=== PATIENT | male | born 1960 | race Caucasian/White ===

== ENCOUNTER 2023-01-15 13:50 | Outpatient (OUT) | payer OTHER, SELFPAY ==
[2023-01-15 14:50] LABS: Estimated Average Glucose 114 mg/dL; Glycohemoglobin A1C 5.6 % (4.5-6.2)
[2023-01-18 14:09] LABS: Methylmalonic Acid, Serum 156 nmol/L (0-378)
== END 2023-01-15 13:51 ==
LOC: LAB 13:56
PROVIDERS: PCP Internal Medicine
DX: R20.9 Unspecified disturbances of skin sensation (principal)
CPT/HCPCS: 36415; 82607; 83036; 83921

== ENCOUNTER 2023-09-28 08:59 | Outpatient (OUT) | payer OTHER, SELFPAY ==
[2023-09-28 10:08] LABS: Alanine Aminotransferase 7 U/L (16-63); Albumin Level 3.5 g/dL (3.4-5.0); Alkaline Phosphatase 94 U/L (46-116); Anion Gap 12.3; Aspartate Amino Transferase 12 U/L (15-37); BUN Creatinine Ratio 16.7; Bilirubin Total 0.4 mg/dL (0.2-1.0); Calcium 8.7 mg/dL (8.5-10.1); Carbon Dioxide 28.7 mmol/L (21.0-32.0); Chloride 104 mmol/L (98-107); Chol HDL Ratio 4.5; Cholesterol 185 mg/dL (<=200); Estimated GFR (African America >60 (>=60); Estimated GFR (Non-African Ame >60 (>=60); Globulin 3.6 g/dL; Glucose 92 mg/dL (74-106); HDL Cholesterol 41 mg/dL (40-60); LDL Cholesterol Calculated 128.4 mg/dL; Sodium 141 mmol/L (136-145); Total Protein 7.1 g/dL (6.4-8.2); Triglycerides 78 mg/dL (<=150); VLDL CHOLESTEROL 15.6 mg/dL
== END 2023-09-28 09:00 | disposition home or self-care (01) ==
LOC: LAB 09:01
PROVIDERS: PCP Internal Medicine; Visit Provider Nurse Practitioner
DX: I77.819 Aortic ectasia, unspecified site (principal); Z00.00 Encounter for general adult medical examination without abnormal findings
CPT/HCPCS: 36415; 80053; 80061; 84153

== ENCOUNTER 2023-09-28 09:18 | Outpatient (REF) | payer OTHER, SELFPAY ==
--- OUTSIDE RECORDS SUMMARY | 2023-10-04 09:59 | XMS_ITS | CCD ---
Author Name Unknown Address [address] [place] [address] Organization [facility] Care Team Providers Care Copier Operator Name Role Phone Unavailable Primary Care Provider UnavailTREMAYNE Singh Attending Unavailable TREMAYNE GIBSON Referring Unavailable PIYUSH, DR HANNAH Admitting Unavailable BALL, DR HANNAH Attending Unavailable BALL, DR HANNAH Primary Care Unavailable BALL, DR HANNAH Consulting Unavailable MISC, DR HU Admitting Unavailable MISC, DR HU Attending Unavailable PIYUSH, DR HANNAH Primary Care Unavailable MISC, DR HU Consulting Unavailable ZIEBER, DR MAMIE Contreras Consulting Unavailable Tabby Lindo Unavailable Taras Pickett Unavailable Unavailable Primary Care Provider UnavailTREMAYNE Singh Attending Unavailable TREMAYNE GIBSON Referring Unavailable MECCA AWAN Attending Unavailable TREMAYNE GIBSON Referring Unavailable MT BAJWA Attending Unavailable EYAL RAE Attending Unavailable EYAL RAE Referring Unavailable EYAL RAE Referring Unavailable Medications Current Medications Medication Drug Class(es) Dates [...] on above: Take 1 tablet by bushra three times daily. 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, unspecified site; Translations: [Aortic ectasia, unspecified site] Onset: 04-03-2023 Chronic Cardiac dysrhythmias (9 sources) Paroxysmal atrial fibrillation; [...] of cardiac pacemaker; Translations: [Cardiac pacemaker] Onset: 04-03-2023 Chronic Disorders of lipid metabolism (13 sources) [...] Test Name Value Interpretation Reference Range Facility Office Visiton 09-26-2023 Follow-up visit [id number] Jurgen Ramos 1960 M Date Provider Department Center 09/26/2023 Anais-MT BAJWA ADRIANO [facility] No family history on file Level of Service:95548 NC OFFICE/OUTPATIENT ESTABLISHED MOD MDM 30 MIN Normal [facility] CNOVon 05-10-2023 CNOV Office Visit (NRESAV ) -------- JAK RAMOS ([id number]) 1960 M Date Time Provider Department 05/10/23 [...] Tremayne Gibson DO 05/10/2023 11:32 AM Signed [facility] - FOLLOW UP EVALUATION [facility] [address] [facility] [address] Jak Ramos is a 63 year old [...] 240 m (more content not included)... Normal [facility] 04-06-2023 [facility] Telephone (NIQ) -------- JAK RAMOS ([id number]) 1960 M Date Time Provider Department 04/06/23 TREMAYNE GIBSON During your visit today, we recorded the following information about you: Flora Quevedo 04/06/2023 2:07 PM Signed Received form by fax from [facility] in [place]. They are asking if the patient can participate in a Parkinsons fitness class. Scanned form to patient's chart for provider signature. Drew Mora RN 04/06/2023 3:01 PM Signed Form printed and in nursing outbox for signature. NATHAN Thornton, [facility] [place] 04/12/2023 11:04 AM Signed Routed in docusign for signature and auto fax to [facility] at fax number [phone]. Allergies As of Date: 04/06/2023 (No Known [...] Status:Closed by DREW MORA on 04/06/23 Normal [facility] Office Visiton 04-03-2023 Follow-up visit [id number] Jurgen Ramos 1960 M Date Provider Department Center 04/03/2023 Kaylie-EYAL RAE CARD [facility] No family history on file Level of Service:66051 NC OFFICE/OUTPATIENT ESTABLISHED MOD MDM 30-39 MIN Normal [facility] CNOVon 01-15-2023 CNOV Office Visit (NNCR ) -------- JAK RAMOS ([id number]) 1960 M Date Time Provider Department 01/15/23 10:00 AM [facility] During your visit today, we recorded the [...] Diagnosis Date Neurocardiogenic syncope PD (Parkinson's disease) ([facility]) 12/2021 PAST SURGICAL HISTORY Procedure Laterality Date [...] Flex 5 (more content not included)... Normal [facility] CBC AUTO DIFFon 10-03-2022 BASO # 0.0 103/ul Normal 0.0-0.1 [facility] Comment on above: Performed By: #### C BC #### [facility] [address] [place] [address] Dr. Rosalio Burks Basophils/100 WBC (Bld) 0.3 % Normal 0.2-2.0 [facility] Comment on above: Performed By: #### C BC #### [facility] [address] [place] [address] Dr. Rosalio Burks EO # 0.1 103/ul Normal 0.0-0.7 [facility] Comment on above: Performed By: #### C BC #### [facility] [address] [place] [address] Dr. Rosalio Burks Eosinophils/100 WBC (Bld) 1.0 % Normal 0.9-7.0 [facility] Comment on above: Performed By: #### C BC #### [facility] [address] [place] [address] Dr. Rosalio Burks Erythrocyte distribution width (RBC) [Ratio] 11.7 % Normal 11.0-15.0 [facility] Comment on above: Performed By: #### C BC #### [facility] [address] [place] [address] Dr. Rosalio Burks Hematocrit (Bld) [Volume fraction] 43.2 % Normal 42.0-54.0 [facility] Comment on above: Performed By: #### C BC #### [facility] [address] [place] [address] Dr. Rosalio Burks Hemoglobin (Bld) [Mass/Vol] 15.0 g/dL Normal 14.0-18.0 [facility] Comment on above: Performed By: #### C BC #### [facility] [address] [place] [address] Dr. Rosalio Burks IG # 0.02 10e3/ul Normal 0.00-0.03 [facility] Comment on above: Performed By: #### C BC #### [facility] [address] [place] [address] Dr. Rosalio Burks IG % 0.3 % Normal 0.0-0.5 [facility] Comment on above: Performed By: #### C BC #### [facility] [address] [place] [address] Dr. Rosalio Burks LYMPH # 1.5 103/ul Normal 1.2-3.8 [facility] Comment on above: Performed By: #### C BC #### [facility] [address] [place] [address] Dr. Rosalio Burks Lymphocytes/100 WBC (Bld) 23.3 % Normal 20.5-60.0 [facility] Comment on above: Performed By: #### C BC #### [facility] [address] [place] [address] Dr. Roslaio Burks MANUAL DIFF REQ NO Normal [facility] Comment on above: Performed By: #### C BC #### [facility] [address] [place] [address] Dr. Rosalio Burks MCH (RBC) [Entitic mass] 31.9 pg Normal 25.9-34.0 [facility] Comment on above: Performed By: #### C BC #### [facility] [address] [place] [address] Dr. Rosalio Burks MCHC (RBC) [Mass/Vol] 34.7 g/dL Normal 29.9-35.2 [facility] Comment on above: Performed By: #### C BC #### [facility] [address] [place] [address] Dr. Rosalio Burks MCV (RBC) [Entitic vol] 91.9 fL Normal 80.0-94.0 [facility] Comment on above: Performed By: #### C BC #### [facility] [address] [place] [address] Dr. Rosalio Burks MONO # 0.6 103/ul Normal 0.3-0.8 [facility] Comment on above: Performed By: #### C BC #### [facility] [address] [place] [address] Dr. Rosalio Burks Monocytes/100 WBC (Bld) 10.1 % Normal 1.7-12.0 [facility] Comment on above: Performed By: #### C BC #### [facility] [address] [place] [address] Dr. Rosalio Burks NEUT # 4.0 103/ul Normal 1.4-6.5 [facility] Comment on above: Performed By: #### C BC #### [facility] [address] [place] [address] Dr. Rosalio Burks Neutrophils/100 WBC (Bld) 65.0 % Normal 43.0-75.0 [facility] Comment on above: Performed By: #### C BC #### [facility] [address] [place] [address] Dr. Rosalio Bursk Platelet mean volume (Bld) [Entitic vol] 10.3 fL Normal 9.5-13.5 [facility] Comment on above: Performed By: #### C BC #### [facility] [address] [place] [address] Dr. Rosalio Burks PLT 268 103/ul Normal 150-450 [facility] Comment on above: Performed By: #### C BC #### [facility] [address] [place] [address] Dr. Rosalio Burks RBC 4.70 106/ul Normal 4.70-6.10 [facility] Comment on above: Performed By: #### C BC #### [facility] [address] [place] [address] Dr. Rosalio Burks WBC 6.2 103/ul Normal 4.0-11.0 [facility] Comment on above: Performed By: #### C BC #### [facility] [address] [address] [address] Rosalio Burks Complete Blood Count and Dif gerald 10-03-2022 Anisocytosis Ql (Bld) [employer] Other Basophilic stippling LM Ql (Bld) [employer] Other RBC morphology finding Nom (Bld) [employer] Other Complete Blood Count and Diff [employer] Other Comprehensive Metabolic Pane laura 10-03-2022 Albumin [Mass/Vol] 3.719791 g/dL 3.4-5.0 g/dL [employer] Other Calcium [Mass/Vol] 9.3925109 mg/dL 8.5-10.1 mg/dL [employer] Other CO2 [Moles/Vol] 30.96901763 mmol/L 21.0-3 2.0 mmol/L [employer] Other Creatinine [Mass/Vol] 1.24512380 mg/dL 0.70-1.30 mg/dL [employer] Other Potassium [Moles/Vol] 4.72156611 mmol/L 3.5-5.1 mmol/L [employer] Other Protein [Mass/Vol] 7.010881 g/dL 6.4-8.2 g/dL [employer] Other Urea nitrogen [Mass/Vol] 17.1337270 mg/dL 7.0-18.0 mg/dL [employer] Other Comprehensive Metabolic Panel see note [employer] Other Comprehensive Metabolic Panel 141 mmol/L 136-145 mmol/L [employer] Other Comprehensive Metabolic Panel 83 mg/dL 74-106 mg/dL [employer] Other Comprehensive Metabolic Panel >60 mL/min/1.73m2 >=60 mL/min/1.73m2 [employer] Other Comprehensive Metabolic Panel 0.3 mg/dL 0.2-1.0 mg/dL [employer] Other Comprehensive Metabolic Panel 3.4 g/dL [employer] Other LIPID PROFILEon 10-03-2022 CHOL-HDL RATIO NORM SEE BELOW Normal [facility] Comment on above: Result Comment: 3.3 - 4.4 LOW RISK 4.4 - 7.1 AVERAGE RISK 7.1 - 11.0 MODERATE RISK >11.0 HIGH RISK Performed By: #### C MP, LIPID #### [facility] [address] [address] [address] Rosalio Burks Cholesterol [Mass/Vol] 202 mg/dL Critically high <=200 mg/dL [facility] Comment on above: Performed By: #### C MP, LIPID #### [facility] [address] [address] [address] Rosalio Burks Cholesterol in HDL [Mass/Vol] 33 mg/dL Critically low 40-60 mg/dL [facility] Comment on above: Performed By: #### C MP, LIPID #### [facility] [address] [address] [address] Rosalio Burks Cholesterol in LDL [Mass/Vol] 106.4 mg/dL Normal [facility] Comment on above: Performed By: #### C MP, LIPID #### [facility] [address] [address] [address] Rosalio Burks Cholesterol.total /Cholesterol in HDL [Mass ratio] 6.1 {ratio} [facility] Comment on above: Performed By: #### C MP, LIPID #### [facility] [address] [address] [address] Rosalio Burks HDL NORMAL > or = 60 mg/dl - LO W CARDIOVASCULAR RISK <40 mg/dl - HIGH CARDIOVASCULAR RISK Normal [facility] Comment on above: Performed By: #### C MP, LIPID #### [facility] [address] [address] [address] Rosalio Burks LDL CALC NORMAL SEE BELOW Normal [facility] Comment on above: Result Comment: <100 mg/dl OPTIMAL 100 - 129 mg/dl NEAR OR ABOVE OPTIMAL 130 - 159 mg/dl BORDERLINE HIGH 160 - 189 mg/dl HIGH >190 mg/dl VERY HIGH Performed By: #### C MP, LIPID #### [facility] [address] [place] [address] Dr. Rosalio Burks Triglyceride [Mass/Vol] 313 mg/dL Critically high <=150 mg/dL [facility] Comment on above: Performed By: #### C MP, LIPID #### [facility] [address] [place] [address] Dr. Rosalio Burks VLDL CALC 62.6 mg/dL Normal [facility] Comment on above: Performed By: #### C MP, LIPID #### [facility] [address] [place] [address] Dr. Rosalio Burks Lipid Panelon 10-03-2022 Lipid Panel > or = 60 mg/dl - LO W CARDIOVASCULAR RISK <40 mg/dl - HIGH CARDIOVASCULAR RISK [employer] Other Lipid Panel SEE BELOW [employer] Other Lipid Panel 106.4 mg/dL [employer] Other Lipid Panel 62.6 mg/dL [employer] Other PROF 14(COMP METB)on 023 Albumin [Mass/Vol] 3.9 g/dL Normal 3.4-5.0 [facility] Comment on above: Performed By: #### C MP, LIPID #### [facility] [address] [place] [address] Dr. Rosalio Burks Albumin/Globulin [Mass ratio] 1.1 {ratio} [facility] Comment on above: Performed By: #### C MP, LIPID #### [facility] [address] [place] [address] Dr. Rosalio Burks ALP [Catalytic activity/Vol] 108 U/L 46-116 U/L [facility] Comment on above: Performed By: #### C MP, LIPID #### [facility] [address] [place] [address] Dr. Rosalio Burks ALT [Catalytic activity/Vol] 15 U/L Critically low 16-63 U/L [facility] Comment on above: Performed By: #### C MP, LIPID #### [facility] [address] [place] [address] Dr. Rosalio Burks Anion gap [Moles/Vol] 10.4 mmol/L [facility] Comment on above: Performed By: #### C MP, LIPID #### [facility] [address] [place] [address] Dr. Rosalio Burks AST [Catalytic activity/Vol] 15 U/L 15-37 U/L [facility] Comment on above: Performed By: #### C MP, LIPID #### [facility] [address] [place] [address] Dr. Rosalio Burks Bilirubin [Mass/Vol] 0.3 mg/dL Normal 0.2-1.0 [facility] Comment on above: Performed By: #### C MP, LIPID #### [facility] [address] [place] [address] Dr. Rosalio Burks Calcium [Mass/Vol] 9.0 mg/dL Normal 8.5-10.1 [facility] Comment on above: Performed By: #### C MP, LIPID #### [facility] [address] [place] [address] Dr. Rosalio Burks Chloride [Moles/Vol] 104 mmol/L 98-107 mmol/L [facility] Comment on above: Performed By: #### C MP, LIPID #### [facility] [address] [place] [address] Dr. Rosalio Burks CO2 [Moles/Vol] 30.7 mmol/L Normal 21.0-32.0 [facility] Comment on above: Performed By: #### C MP, LIPID #### [facility] [address] [place] [address] Dr. Rosalio Burks Creatinine [Mass/Vol] 1.09 mg/dL Normal 0.70-1.30 [facility] Comment on above: Performed By: #### C MP, LIPID #### [facility] [address] [place] [address] Dr. Rosalio Burks EGFR-AF [place]IZ[place] >60 Normal >=60 [facility] Comment on above: Performed By: #### C MP, LIPID #### [facility] [address] [place] [address] Dr. Rosalio Burks EGFR-NON AF [place]IZ[place] >60 Normal >=60 [facility] Comment on above: Performed By: #### C MP, LIPID #### [facility] [address] [place] [address] Dr. Rosalio Burks Globulin (S) [Mass/Vol] 3.4 g/dL Normal [facility] Comment on above: Performed By: #### C MP, LIPID #### [facility] [address] [place] [address] Dr. Rosalio Burks Glucose [Mass/Vol] 83 mg/dL Normal 74-106 [facility] Comment on above: Performed By: #### C MP, LIPID #### [facility] [address] [place] [address] Dr. Rosalio Burks Potassium [Moles/Vol] 4.1 mmol/L Normal 3.5-5.1 [facility] Comment on above: Performed By: #### C MP, LIPID #### [facility] [address] [place] [address] Dr. Rosalio Burks Protein [Mass/Vol] 7.3 g/dL Normal 6.4-8.2 [facility] Comment on above: Performed By: #### C MP, LIPID #### [facility] [address] [place] [address] Dr. Rosalio Burks Sodium [Moles/Vol] 141 mmol/L Normal 136-145 [facility] Comment on above: Performed By: #### C MP, LIPID #### [facility] [address] [place] [address] Dr. Rosalio Burks Urea nitrogen [Mass/Vol] 17.0 mg/dL Normal 7.0-18.0 [facility] Comment on above: Performed By: #### C MP, LIPID #### [facility] [address] [place] [address] Dr. Rosalio Burks Urea nitrogen/Creatini ne [Mass ratio] 15.6 mg/mg [facility] Comment on above: Performed By: #### C MP, LIPID #### [facility] [address] [address] [address] Rosalio GARZONon 09-08-2022 CNOV Office Visit (NRESFV ) -------- JAK RAMOS ([id number]) 1960 M Date Time Provider Department 09/08/22 8:00 AM TREMAYNE GIBSON NRESFV During your visit today, we recorded the following information about you: Pulse Blood pressure Weight Height 82/minute 146/93 93.6 kg 1.956 m Tremayne Gibson DO 09/08/2022 8:41 AM Signed [facility] - FOLLOW UP EVALUATION Tremayne Gibson [address] [facility] [address] Jak Ramos is a 62 year old [...] holds a paper. No falls are noted. 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 There is a strong family [...] in Neurology OT/PT/Speech Visit from 10/13/2021 in [facility] Physical Therapy Global Physical Health T Score [...] 2+ P (more content not included)... Normal [facility] XR MODIFIED BARIUM SWALLOWon 11-01-2021 XR MODIFIED [...] by: MAMIE HOLDER Date: 2021-11-01 09:50 Normal [facility] Ambulatory Clinical Summaryo n 02-10-2021 Ambulatory Clinical Summary {[id number] }CD:[id number] Normal [facility] General Surgery Office/Clini c Noteon 01-11-2021 General [...] with problems/questions. Follow-up With When Contact Information NSEHA TAFOYA, LAVON Waters Only if needed [address] [place] [address]- Additional Instructions: Patient Education Exercising to Stay [...] Not Given Postpone due to refusal Normal [facility] Comment on above: Result Comment: Elec tronically [...] Yard work, such as: ? 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 ? Raking and bagging leaves. ? Washing [...] 08/25/2011 Document Revised: 07/05/2018 Document Reviewed: 06/13/2018 [employer] Patient Education ? 2019 [employer]. Normal [facility] Ambulatory Clinical Summaryo n 12-30-2020 Ambulatory Clinical Summary {[id number] }CD:[id number] Normal [facility] General Surgery Office/Clini c Noteon 12-30-2020 General [...] Not Given Postpone due to refusal Normal [facility] Comment on above: Result Comment: Elec tronically Signed By: SNEHA TAFOYA, Tyree Buckley\Date and Time Signed: 12/30/20 09:58 EDT Ambulatory Clinical Summaryo n 12-15-2020 Ambulatory Clinical Summary {[id number] }CD:[id number] Normal [facility] General Surgery Office/Clini c Noteon 12-15-2020 General [...] - Not Given Postpone due to refusal [facility] Comment on above: Result Comment: Elec tronically Signed By: SNEHA TAFOYA, Tyree Buckley\Date and Time Signed: 12/15/20 16:50 EDT Pathology Noteon 12-14-2020 Pathology Note [id number]: 127 [facility] Operative Reporton Operative Report [id number]: 127 [facility] Lab Reportson 12-06-2020 Lab Reports [id number]: 127 [facility] Consent for Procedure/Surger yon 11-29-2020 Consent for Procedure/Surgery [id number]:1 27 Normal [facility] Ambulatory Clinical Summaryo n 11-26-2020 Ambulatory Clinical Summary {[id number] }CD:[id number] Normal [facility] Patient Educationon 11-27-19 Patient Education Preventive Health [...] Yard work, such as: ? 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 ? Raking and bagging leaves. ? Washing [...] 08/25/2011 Document Revised: 07/05/2018 Document Reviewed: 06/13/2018 [employer] Patient Education ? 2019 [employer] [facility] Physician Referralon 021 Physician Referral [id number]: 127 [facility] Vital Signs Date Time Vital Sign Value Performing Clinician Facility 08-16-2023 10:15-0500 Body height 190.5 cm Taras [facility] Other [employer] Other 08-16-2023 10:15-0500 Body mass index (BMI) [Ratio] 22.3 kg/m2 Taras [facility] Other [employer] Other 08-16-2023 10:15-0500 Body weight 80.92 kg Taras [facility] Other [employer] Other 08-16-2023 10:15-0500 Diastolic blood pressure 70 mm[Hg] Taras [facility] Other [employer] Other 08-16-2023 10:15-0500 Respiratory rate 12 /min Taras [facility] Other [employer] Other 08-16-2023 10:15-0500 Systolic blood pressure 109 mm[Hg] Taras [facility] Other [employer] Other 05-10-2023 10:46-0400 Diastolic blood pressure 87 mm[Hg] Tremayne Gibson DO Work Phone: [facility] 05-10-2023 10:46-0400 Heart rate 85 /min Tremayne Gibson DO Work Phone: [facility] 05-10-2023 10:46-0400 Systolic blood pressure 125 mm[Hg] Tremayne Gibson DO Work Phone: [facility] 03-13-2023 13:30-0400 Body height 190.5 cm Taras Ball Other [employer] Other 03-13-2023 13:30-0400 Body mass index (BMI) [Ratio] 24.42 kg/m2 Taras Ball Other [employer] Other 03-13-2023 13:30-0400 Body weight 88.63 kg Taras Ball Other [employer] Other 03-13-2023 13:30-0400 Diastolic blood pressure 78 mm[Hg] Taras Ball Other [employer] Other 03-13-2023 13:30-0400 Respiratory rate 12 /min Taras Ball Other [employer] Other 03-13-2023 13:30-0400 Systolic blood pressure 111 mm[Hg] Taras Ball Other [employer] Other 10-03-2022 14:00-0500 Body height 190.5 cm Taras Ball Other [employer] Other 10-03-2022 14:00-0500 Body mass index (BMI) [Ratio] 25.32 kg/m2 Taras Ball Other [employer] Other 10-03-2022 14:00-0500 Body weight 91.9 kg Taras Ball Other [employer] Other 10-03-2022 14:00-0500 Diastolic blood pressure 82 mm[Hg] Taras Ball Other [employer] Other 10-03-2022 14:00-0500 Respiratory rate 12 /min Taras Ball Other [employer] Other 10-03-2022 14:00-0500 Systolic blood pressure 118 mm[Hg] Taras Ball Other [employer] Other 09-19-2022 12:40-0500 Body height 190.5 cm Tabby Lindo Other [employer] Other 09-19-2022 12:40-0500 Body mass index (BMI) [Ratio] 26.25 kg/m2 Tabby Lindo Other [employer] Other 09-19-2022 12:40-0500 Body temperature 98.2 [degF] Tabby Lindo Other [employer] Other 09-19-2022 12:40-0500 Body weight 95.26 kg Tabby Lindo Other [employer] Other 09-19-2022 12:40-0500 Respiratory rate 18 /min Tabby Lindo Other [employer] Other 09-19-2022 12:40-0500 SaO2% (BldA) [Mass fraction] 96 % Tabby Lindo Other [employer] Other 09-08-2022 07:53-0500 Body height 195.6 cm Tremayne Gibson DO Work Phone: [facility] 09-08-2022 07:53-0500 Body weight 93.58 kg Tremayne Gibson DO Work Phone: [facility] 09-08-2022 07:53-0500 Diastolic blood pressure 93 mm[Hg] Tremayne Gostkowski DO Work Phone: [facility] 09-08-2022 07:53-0500 Heart rate 82 /min Tremayne Gostkowski DO Work Phone: [facility] 09-08-2022 07:53-0500 SaO2% (BldA) [Mass fraction] 94 % Tremayne Gostkowski DO Work Phone: [facility] 09-08-2022 07:53-0500 Systolic blood pressure 146 mm[Hg] Tremayne Gostkowski DO Work Phone: [facility] 12-29-2021 13:46-0400 Diastolic blood pressure 82 mm[Hg] Tremyane Gostkowski DO Work Phone: [facility] 12-29-2021 13:46-0400 Heart rate 99 /min Tremayne Mickeytkowski DO Work Phone: [facility] 12-29-2021 13:46-0400 Systolic blood pressure 114 mm[Hg] Tremayne Gostkowski DO Work Phone: [facility] 11-10-2021 08:00-0400 Diastolic blood pressure 89 mm[Hg] Hero Salinason PT Work Phone: [facility] 11-10-2021 08:00-0400 Heart rate 83 /min Hero Salinason PT Work Phone: [facility] 11-10-2021 08:00-0400 Systolic blood pressure 134 mm[Hg] Hero Salinason PT Work Phone: [facility] Encounters Encounter Date Encounter Type Care Provider Facility Start: 10-02-2023 End: 10-02-2023 ambulatory EYAL RAE [facility] Start: 09-26-2023 End: 09-26-2023 ambulatory MT BAJWA [facility] Start: 08-16-2023 End: 08-16-2023 ambulatory Taras Pickett Other [employer] Other Start: 08-16-2023 Office outpatient vi sit 15 minutes Taras Piyush [facility] Start: 08-10-2023 End: 08-10-2023 ambulatory Taras Pickett Other [employer] Other Start: 08-10-2023 Office outpatient vi sit 15 minutes Taras Piyush [facility] Start: 05-10-2023 End: 05-10-2023 ambulatory TREMAYNE GIBSON Facility:[facility] Start: 05-10-2023 End: 05-10-2023 Office outpatient visit 15 minutes Tremayne Gibson DO Work Phone: Neurology Comment on above: PD (Parkinson's dise ase) Start: 04-06-2023 Telephone encounter Tremayne fox DO Work Phone: Neurology Comment on above: Forms Start: 04-03-2023 End: 04-03-2023 ambulatory EYAL [facility] Start: 03-13-2023 End: 03-13-2023 ambulatory Taras Piyush Other [employer] Other Start: 03-13-2023 Office outpatient vi sit 25 minutes Taras Piyush [facility] Start: 01-15-2023 End: 01-15-2023 ambulatory MECCA AWAN Facility:[facility] Start: 11-22-2022 ambulatory Tremayne florentino DO Work Phone: Neurology Comment on above: neuropathy analysis Start: 10-09-2022 End: 10-09-2022 ambulatory Taras Pickett Other [employer] Other Start: 10-09-2022 Telephone encounter Taras MERCADO [facility] Start: 10-08-2022 Encounter for genera l adult medical examination without abnormal findings DR TARAS PICKETT [facility] Start: 10-03-2022 End: 10-04-[address] TARAS PICKETT Facility: Start: 10-03-2022 End: 10-04-2022 Encounter for general adult medical examination without abnormal findings DR TARAS PICKETT Facility: Start: 10-03-2022 Periodic preventive med est patient 40-64yrs Taras Pickett [facility] Start: 09-19-2022 End: 09-19-2022 ambulatory Tabby Lindo Other [employer] Other Start: 09-19-2022 Office outpatient ne w 30 minutes Tabby Lindo [facility] Start: 09-08-2022 End: 09-08-2022 ambulatory TREMAYNE GIBSON Facility:[facility] Start: 09-08-2022 End: 09-08-2022 Office outpatient visit 15 minutes Tremayne Gibson DO Work Phone: Neurology Comment on above: PD (Parkinson's dise ase) (HCC) (Primary Dx); Neuropathy, peripheral, hereditary Start: 12-29-2021 End: 12-29-2021 Patient encounter procedure Tremayne Gibson DO Work Phone: Neurology Comment on above: PD (Parkinson's dise ase) (HCC) (Primary Dx) Start: 12-01-2021 End: 12-01-2021 ambulatory Janice Leon CCC-CODING TECHNICIAN [facility] Comment on above: Hypokinetic Parkinso nian dysphonia (HCC) (Primary Dx); 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); Pharyngeal dysphagia; PD (Parkinson's disease) (HCC) Start: 11-14-2021 ambulatory Tremayne florentino DO Work Phone: Neurology Comment on above: 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 Start: 11-10-2021 End: 11-10-2021 ambulatory Hero Cuellar PT Work Phone: [facility] Physical Therapy Comment on above: Abnormality of gait (Primary Dx); PD (Parkinson's disease) (HCC) Hypokinetic Parkinso nian dysphonia (HCC) (Primary Dx); 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); Pharyngeal dysphagia; PD (Parkinson's disease) (HCC) Start: 11-07-2021 Telephone encounter Tremayne fox DO Work Phone: [facility]rological [facility] Comment on above: Results (MBS) Start: 11-03-2021 End: 11-03-2021 ambulatory Janice Leon CCC-CODING TECHNICIAN [facility] Speech Therapy Comment on above: Hypokinetic Parkinso nian dysphonia (HCC) (Primary Dx); 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 Rosalio Burks Start: 12-26-2021 Adult depression screening assessment Tremayne Gibson DO Work Phone: Depression screening Byron Pickett Other Screening for malign ant neoplasm of prostate Taras Pickett Other Plan of Treatment Date Care Activity Detail Author Start: 10-03-2027 PROSTATE CANCER SCRE ENING DISCUSSION PROSTATE CANCER SCREENING DISCUSSION [facility] Start: 01-13-2026 PROSTATE CANCER SCRE ENING DISCUSSION PROSTATE CANCER SCREENING DISCUSSION [facility] Start: 04-06-2023 Influenza vaccination [facility] Start: 12-26-2022 Adult depression scr eening assessment DEPRESSION SCREENING [facility] Start: 08-06-2022 DEPRESSION ASSESSMENT DEPRESSION ASS ESSMENT [facility] Start: 04-06-2022 Influenza vaccination C [facility] Start: 08-06-2021 DEPRESSION ASSESSMENT DEPRESSION ASS ESSMENT [facility] Start: 04-06-2021 Influenza vaccination INFLUENZA (#1) [facility] Start: 2014 PROSTATE CANCER SCRE ENING DISCUSSION PROSTATE CANCER SCREENING DISCUSSION [facility] Start: 2009 SHINGRIX VACCINE (1 of 2) SHINGRIX V ACCINE (1 of 2) [facility] Start: 2004 COLOGUARD (FIT-DNA) COLOGUARD (FIT-D NA) [facility] Start: 2004 Colonoscopy COLONOSCOPY [facility] Start: 2004 COLORECTAL CANCER SCREENING COLORECTAL CANCER SCREENING [facility] Start: [address] COLONOGRAPHY [facility] Start: 2004 [facility] Start: 2004 Diabetes Screening Diabetes Screenin g [facility] Start: 2004 FECAL OCCULT BLOOD FECAL OCCULT BLOO D [facility] Start: 2004 SIGMOIDOSCOPY SIGMOIDOSCOPY [facility] Start: 1994 Lipid 1996 panel - S andriy or Plasma Lipid Screening [facility] Start: 1994 LIPID SCREEN LIPID SCREEN [facility] Start: 1978 Urine microalbumin profile [facility] Start: 1977 HEPATITIS C SCREENING HEPATITIS C SC REENING [facility] Start: 1977 HIV SCREENING HIV SCREENING [facility] Start: [address] [facility] assessment DEPRESSION SCREENING [facility] Start: 1964 COVID-19 VACCINE (#1) COVID-19 VACCI NE (#1) [facility] Start: 1964 COVID-19 VACCINE (1) COVID-19 VACCIN E (1) [facility] Start: 1959 COVID-19 VACCINE (#1) COVID-19 VACCI NE (#1) [facility] Payers Date Payer Category Payer Unknown [id number] 2018 Unknown ALAINA JETT PPO [id number] 2018-Present [phone] MARIA FERNANDA [id number] [place] [address] PPO [id number] 2018 Unknown [id number] 1959 Unknown [id number] 1959 Unknown [id number] 1959 Unknown [id number] 1959 Unknown [id number] Social History Date Type Detail Facility Tobacco smoking stat [facility] Tobacco smoking consumption unknown [facility] Start: 1960 Sex Assigned At Not on file C [facility] Start: 09-06-2021 End: 04-04-2022 Exposure to SARS-CoV-2 (event) Not sure [facility] Start: 09-08-2022 Tobacco smoking stat [facility] Never smoked tobacco [facility] Start: 09-08-2022 Tobacco use and exposure Smoke less tobacco non-user [facility] Start: 09-08-2022 End: 01-15-2023 Sex Assigned At [facility] Start: 09-08-2022 End: 01-15-2023 History of Social function [facility] Adult Depression Screening Assessment 0 [facility] Start: 10-01-2021 Sexual orientation Choose not to dis close [facility] Clinical Notes 08-06-2008 to 09-26-2023 Note Date & Type Note Facility 09-26-2023 Note [facility] Consult Note Reason for visit: 6 month follow up, PPM, aortic dilatation, PAF 09/26/23: he is here for 6 month follow-up send no complaints of chest pain, shortness of breath, PATIÑO, LE edema he gets some lightheadedness with postural changes when he is doing PT such as when he is lying on the ground has to get up but otherwise has been feeling well discussed with patient given his findings of dilated ascending aorta on previous CT 2019 and concerns for aortic root dilatation we will get a CTA of chest for monitoring of his aorta 04/03/23 Patient here for 6 mo follow up. Needs to have basal cell carcinoma removed in May 2023. Denies chest pain, SOB, palpitations, and LE edema. He recently went to Parkinson symposium at [facility]. He is handling his meds well. Device check 04/03/23 SR with normal parameters. 42% RA pacing and 23% RV pacing. Review of Systems Musculoskeletal: Positive for arthritis, back pain and myalgias. All other systems reviewed and are negative. [facility] neurology recently made a formal diagnosis of Parkinson's and he has been started on carbidopa. He is told that there has been a change in tremors. He is also on Cardizem. Device check performed on 09/20/2022 shows no evidence of atrial fibrillation and lead thresholds has been stable. Prior HPI: Jak Ramos is a 63 y.o. year old with past medical history [...] syncope s/p CLS dual chamber PM PMH: Past Medical History: Diagnosis Date Abnormal ECG PSH: No past surgical history on file. SH: Social Determinants of Health Tobacco Use: Low Risk (09/26/2023) Patient History Smoking Tobacco Use: Never Smokeless [...] on file Housing Stability: Not on file Utilities: Not on file Allergies: No Known Allergies Weight: 83kg Visit Vitals BP 103/70 (BP Location: Right arm, Patient Position: Sitting) Pulse 95 Ht 1.956 m (6' 5 ) Wt 83 kg (183 lb) SpO2 98% BMI 21.70 kg/m??? Smoking Status Never BSA 2.12 m??? Meds: Current Outpatient Medications on File Prior to Visit Medication Sig Dispense Refill aspirin 325 mg tablet in the morning. carbidopa-levodopa (Sinemet) 25-100 mg tablet Take 1 tablet by mouth in the morning, afternoon, and at bedtime. [DISCONTINUED] dilTIAZem CD (Cardizem CD) 240 mg 24 [...] no coughing up blood, no sleep apnea Mus (more content not included)... [facility] 09-26-2023 Note Patient here for 6 m o follow up PAF, tachycardia, and dilatation of aorta. He is scheduled for routine device interrogation next week. He denies chest pain, SOB, and palpitations. Review of Systems Neurological: Positive for light-headedness and tremors. All other systems reviewed and are negative. [facility] 08-16-2023 Evaluation note Encounter Date Diagnosis Assessment [...] G20) Weakens his ability to clear secretions [employer] Other 01-05-2024 Evaluation note* Encounter Date Diagnosis [...] Push fluids, may require elevation of HOB. Lesleysalmicky Perles since nonproductive [employer] Other 10-05-2023 NoteHNO ID: [id number] Author: Tremayne Gibson, DO Service: ? Author Type: Physician Type: Progress Notes Filed: 05/10/2023 11:32 AM Note Text: [facility] - FOLLOW UP EVALUATION Tremayne Gibson [address] [facility] [address] Jak Ramos is a 63 year old [...] Left pathological reflexes: Rashel's absent. Coordination Right: Bgoyni-lo-wqoq normal. Rapid alternating movement normal.Left: Ioaofh-hp-mgbe normal. Rapid alternating movement normal. Gait Casual gait: Normal stance. Reduced stride length. Normal gait. Normal right arm swing. Normal (more content not included)...[facility] 05-10-2023 NoteHNO ID: [id number] Author: Abhishek Cotto LPN Service: ? Author [...] Sleep Apnea Probability Score: (Sleep study not recommended)[facility]10-05-2023 History of Present illness Narrative* Tremayne Gibson DO - 05/10/2023 11:20 AM EDT [facility] - FOLLOW UP EVALUATION Tremayne Gibson [address] [facility] [address] Jak Ramos is a 63 year old [...] Left pathological reflexes: Rashel's absent. Coordination Right: Jxptky-xb-awxt normal. Rapid alternating movement normal.Left: Pxpeae-gb-ydns normal. Rapid alternating movement normal. Gait Casual [...] counseling regarding preparing to see the patient, pzon-sp-aymb patient care, completing clinical documentation, obtaining and/or reviewing separately obtained history, performing a medically appropriate examination, counseling and educating the patient/family/caregiver, ordering medications, tests,or procedures, and communicating results to the patient/family/caregiver. I tried to answer all of the patient's questions and concerns during this visit. Tremayne Gibson DO Senior Staff Neurologist - [facility] * Abhishek Cotto LPN - 05/10/2023 10:45 [...] (Sleep study not recommended) documented in this encounterSum[facility]09-[facility]23 Miscellaneous Notes* Telephone Encounter - Drew Mora RN - 04/06/2023 2:59 PM EDT Form printed and in nursing outbox for signature. Drew Mora RN * Telephone Encounter - Flora Quevedo - 04/06/2023 2:05 PM EDT Received form by fax from [facility] in [place]. They are asking if the patient can participate [employer] Parkins[employer] fitness class. Scanned form to patient's chart for provider signature. documented in this encounterSumma Health [facility]08-29-2023 NoteUT Electrophysiology Consult Note Reason for visit: f/u 04/03/23 Patient here for 6 mo follow up. Needs to have basal cell carcinoma removed in May 2023. Denies chest pain, SOB, palpitations, and LE edema. He recently went to Parkinson symposium at [facility]. He is handling his meds well. Device check 04/03/23 SR with normal parameters. 42% RA pacing and 23% RV pacing. Review of Systems Musculoskeletal: Positive for arthritis, back pain and myalgias. All other systems reviewed and are negative. [facility] neurology recently made a formal diagnosis of [...] Constitutional General Appearance: well-nour (more content not included)...[facility]08-08[facility] Evaluation note* Encounter Date Diagnosis Assessment Notes [...] calories. Protien supplement recommended. Monitor for now. [employer] Other 06-12-2023 NoteHNO ID: [id number] Author: Mecca Awan MD Service: ? Author [...] Diagnosis Date Neurocardiogenic syncope PD (Parkinson's disease) ([facility]) 12/2021 PAST SURGICAL HISTORY Procedure Laterality Date [...] PF 5/5 5/5 In (more content not included)...[facility]03-06-2023 Evaluation note* Encounter Date Diagnosis Assessment Notes Treatment Notes Treatment Clinical Notes Oct, Parkinson's disease (ICD-10 - G20) [employer] Other 02-28-2023 Evaluation note* Encounter Date Diagnosis [...] f/u Neurology, scheduled to be seen at [facility] neuropathy clinic. Fall precautions., inspect feet daily for cuts and calluses. Sep, Paroxysmal atrial fibrillation (ICD-10 - I48.0) CHADS VASC=0 Denies episodes of tachycardia. f/u Cardiology Sep, Cardiac pacemaker (I CD-10 - Z95.0) PM checks q 6mo [employer] Other 02-14-2023 Evaluation note* Encounter Date Diagnosis Assessment Notes [...] treatment plan. Patient left in stable condition. [employer] Other 02-03-2023 NoteHNO ID: [id number] Author: Tremayne Gibson, DO Service: ? Author Type: Physician Type: Progress Notes Filed: 09/08/2022 8:41 AM Note Text: [facility] - FOLLOW UP EVALUATION Tremayne Gibson [address] [facility] [address] Jak Ramos is a 62 year old [...] holds a paper. No falls are noted. 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 There is a strong family [...] in Neurology OT/PT/Speech Visit from 10/13/2021 in [facility] Physical Therapy [facility] T Score [...] Left pathological reflexes: Rashel's absent. Coordination Right: Xrfgzn-lf-vznm normal. Rapid alternating movement normal.Left: Lcyvpu-gr-zdmg normal. Rapid alternating movement normal. (more content not included)...[id number] Instructions* Patient Instructions* Tremayne Gibson DO - 09/08/2022 8:40 AM EST Medications 6A 10A 245P Sinemet 25/100 1 1 1 documented in this encounterSumma Health [facility]02-03-2023 History of Present illness Narrative* Tremayne Gibson DO - 09/08/2022 8:18 AM EST [facility] - FOLLOW UP EVALUATION Tremayne Gibson [address] [facility] [address] Jak Ramos is a 62 year old [...] has to hold off on PT and CODING TECHNICIAN until then. There is a strong family [...] in Neurology OT/PT/Speech Visit from 10/13/2021 in [facility] Physical Therapy [facility] Physical [facility] T Score [...] Left pathological reflexes: Rashel's absent. Coordination Right: Rxkeyd-se-ipgy normal. Rapid alternating movement normal.Left: Mwtjqa-nm-vvsg normal. Rapid alternating movement normal. Gait Casual [...] the amplitude decrements starting after the 1st ahfk-ben-pgjil sequence. Arm Movements Right 2-Mild. a) 3 [...] this visit: Pd (parkinson's disease) ([facility]) (primary encounter diagnosis) Neuropathy, peripheral, hereditary Plan: Continue Sinemet Encouraged exercise - ~150 minutes of strenuous exercise weekly is recommended Defer until 12/26; PT at [facility] Defer until 12/26; genetic counseling for testing for peripheral neuropathy Return in about 6 months (around 03/08/2023). Medical decision making was high complexity due to patient's, multiple symptoms, advancing disease,newly diagnosed Neurologic disease and counseling about correction implications The total time spent on the patient care was 25 minutes with greater than 50% of the time spent on counseling regarding preparing to see the patient, jllc-yz-kfpx patient care, completing clinical documentation, obtaining and/or reviewing separately obtained history, performing a medically appropriate examination, counseling and educating the patient/family/caregiver, ordering medications, tests,or procedures, and communicating results to the patient/family/caregiver. I tried to answer all of the patient's questions and concerns during this visit. Tremayne Gibson DO Senior Staff Neurologist - [facility] documented in this encounterSumma Health [facility]05-26-2022 Instructions* Patient Instructions* Tremayne Gibson DO - [...] Reglan, Compazine or Phenergan. documented in this encounterSumma Health Barberton Campus05-26-2022 History of Present illness Narrative* Tremayne Gibson DO - 12/29/2021 2:10 PM EDT [facility] - FOLLOW UP EVALUATION Tremayne Gibson [address] [facility] [address] Jak Ramos is a 61 year old male with a history of IPD (idiopathic Parkinson's disease). He is seen with his . Interval History Since Last Visit: The patient has been following through with the CODING TECHNICIAN exercises on his drive to work. He notes mild depression. He has been using the treadmill. The short-term memory issues are still an issue. He notes continuing cognitive issues. The PT has been helpful - he notes more baemf-kl-xycmlx. No falls arereported. The patient denies any [...] visit: PROMIS-10 OT/PT/Speech Visit from 10/13/2021 in [facility] Physical Therapy Global Physical [facility] T Score [...] Left pathological reflexes: Rashel's absent. Coordination Right: Svwrpv-xh-qpyl normal. Rapid alternating movement normal. Left: Xpcchd-et-omxl normal. Rapid alternating movement normal. Gait Casual [...] the amplitude decrements starting after the 1st pffb-fmj-veive sequence. Arm Movements Right 2-Mild. a) 3 [...] this visit: Pd (parkinson's disease) ([facility]) (primary encounter diagnosis) Plan: 1. Start Sinemet [...] counseling regarding preparing to see the patient, dsyl-ej-sejz patient care, completing clinical documentation, obtaining and/or reviewing separately obtained history, performing a medically appropriate examination, counseling and educating the patient/family/caregiver, ordering medications, tests,or procedures and communicating results to the patient/family/caregiver. I tried to answer all of the patient's questions and concerns during this visit. Tremayne Gibson DO Senior Staff Neurologist - [facility] documented in this encounterSumma Health [facility] Campus04-28-2022 History of Present illness Narrative* Janice Leon [facility]-CODING TECHNICIAN - 12/01/2021 8:55 AM EDT Episode Visit Count: 5 Therapist That Will Oversee The Plan Of Care: Janice Leon Start of Care Date: 10/13/21 Onset Date: 10/06/21 Plan of Care Certification Date: 10/13/21 Next Certification Due Date: 12/12/21 Patient Identified by Name and Date of : Yes [facility] SPEECH THERAPY PROGRESS [...] upright 90 degrees for all PO;Small Bite/Sip CODING TECHNICIAN Recommendations: Outpatient Speech Therapy Results and Recommendations Discussed With: Patient Planned Interventions, Frequency, and Duration: Planned Treatment Interventions: Cognitive-Linguistic Training (28881, 65251, 00324);Dysphagia Reduction Training (15410);Expressive Language Training (29193, 20190);Voice Training (81849) Current Frequency: 1x/week Duration: 4 weeks PLAN [...] reps each Laryngeal elevation/adduction exercises: 10 reps CODING TECHNICIAN administered DEEP PHARYNGEAL NEUROMUSCULAR STIMULATION to CN [...] 70.2 Sentences: 67.9 TREATMENT: Swallow / Dysphagia (24905): Skilled Intervention: Demonstrated, instructed, modeled and provided educational handout(s) for hyolaryngeal elevation and excursion manuevers and lingual ROM, lingual base ROM, pharyngeal ROM., Provided both written and video instruction for home exercise program to facilitate follow through with proper performance. , Provided neuromuscular reeducation of swallowing reflex via DPNS Speech/Language Therapy (13196): Skilled Intervention: Educated and instructed patient on [...] per 5 word sentences Billing: Speech Treatment (80153) and Dysphagia Treatment (90774) Total time / Length of visit: 60 minutes Janice Leon CCC-CODING TECHNICIAN documented in this encounterSumma Health [facility]04-07-2022 Miscellaneous Notes* Addendum Note - Hero Cuellar PT - 11/10/2021 9:37 AM EDT Addended by: HERO CUELLAR on: 11/10/2021 09:37 AM Modules accepted: Orders documented in this encounterSum[facility]-07-[facility]22 History of Present illness Narrative* LANEY ParkCODING TECHNICIAN - 11/10/2021 9:04 AM EDT Episode Visit Count: 4 Therapist That Will Oversee The Plan Of Care: Janice Leon Start of Care Date: 10/13/21 Onset Date: 10/06/21 Plan of Care Certification Date: 10/13/21 Next Certification Due Date: 12/12/21 Patient Identified by Name and Date of : Yes [facility] SPEECH THERAPY PROGRESS [...] upright 90 degrees for all PO;Small Bite/Sip CODING TECHNICIAN Recommendations: Outpatient Speech Therapy Results and Recommendations Discussed With: Patient Planned Interventions, Frequency, and Duration: Planned Treatment Interventions: Cognitive-Linguistic Training (05995, 77266, 11134);Expressive Language Training (37169, 30919);Voice Training (07564);Dysphagia Reduction Training (89506) Current Frequency: 1x/week Duration: 4 weeks PLAN [...] 5 reps Pharyngeal ROM exercises: 10 reps CODING TECHNICIAN administered DEEP PHARYNGEAL NEUROMUSCULAR STIMULATION to CN V-XII sites with iced lemon glycerine swabs x 18. Patient demonstrated mild-strong gag response x 15, moderate to max lingual curling,moderate to max palatal lift and swallow reflexes of 2-3 seconds. TREATMENT: Swallow / Dysphagia (10399): Skilled Intervention: Demonstrated, instructed, modeled and provided [...] of swallowing reflex via DPNS. Speech/Language Therapy (72410): Skilled Intervention: Educated and instructed patient on compensatory strategies for vocal intensity, working memory, informtion processing Educated and instructed patient on memory recall strategies such as grouping. Provided verbal cues in vocal intensity. Provided and instructed patient per home exercise program. Current Home Program: facial/lingual/lingual base/laryngeal/pharyngeal exercises, working memory per 5 word sentences, memory using grouping, abstract categorical naming Billing: Speech Treatment (92057) and Dysphagia Treatment (06836) Total time / Length of visit: 75 minutes Janice Leon CCC-CODING TECHNICIAN documented in this encounterSum[facility]04-07-2022 History of Present illness Narrative* Hero Cuellar, [...] Patient to be seen for Therapeutic exercise (51474);Neuromuscular re-education (11328);Manual therapy (05568);Therapeutic activities (43251);Self-shelter management (46405);Gait Training (62124);Patient/Family/Caregiver Education;Functional training PLAN FOR NEXT VISIT: Return in 6 months to reperform outcome measures SUBJECTIVE: Patient Reason for Visit: Pt had a bout of headache and feeling off balance. Plans to discuss with shroudman. Pt will be working with Dr. Galan [...] activity. Gait Trainin: C-mill: 1.1m/s Trials with Zoila WAlk-on carbon fiber AFO and foot flexor. 15:00 minutes Skilled Intervention: Patient was provided independence during pre-gait/gait training to prevent falls and insure safety. Facilitated proper gait cycle with the use of verbal and visual cues for correction of gait deviations identified in the objective section above. Gait belt utilized during session for safety. Self-Half-Way Management: 1: Reviewed PD aerobic exercise intensity [...] 60 Hero Cuellar PT documented in this encounterSum[facility]04-04-2022 Miscellaneous Notes* Telephone Encounter - Darlene Salazar - 11/07/2021 1:09 PM EDT MBS results received via fax and available to view in scanned documents. documented in this encounterSumma Health [facility]03-31-2022 History of Present illness Narrative* Janice Leon CCC-CODING TECHNICIAN - 11/03/2021 11:11 AM EDT Episode Visit Count: 3 Therapist That Will Oversee The Plan Of Care: Janice Leon Start of Care Date: 10/13/21 Onset Date: 10/06/21 Plan of Care Certification Date: 10/13/21 Next Certification Due Date: 12/12/21 Patient Identified by Name and Date of : Yes [facility] SPEECH THERAPY TREATMENT [...] 69.4 dB SPL TREATMENT: Swallow / Dysphagia (38251): Skilled Intervention: Provided education related to a [...] follow through with proper performance. Speech/Language Therapy (32607): Skilled Intervention: Educated and instructed patient on compensatory strategies for vocal intensity Provided verbal cues in vocal intensity. Provided and instructed patient per home exercise program. Current Home Program: facial/lingual/laryngeal elevation/adduction, lingual base, Billing: Treatment of Swallow Dysfunction (23815) Speech Treatment (10146) Total time / Length of visit: 45 minutes Janice Leon CCC-CODING TECHNICIAN documented in this encounterSumma Health [facility]04-23-2021 NoteChief Complaint Referral per Dr. 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) Unspecified persistent mental disorders due to conditions classified elsewhere Pharyngeal dysphagia Dysphagia, pharyngeal phase PD (Parkinson's disease) (HCC) Paralysis agitans documented in this encounter [facility]* Diagnosis Abnormality of gait- Primary PD (Parkinson's disease) (HCC) Paralysis agitans documented in this encounter [facility]* 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) Unspecified persistent mental disorders due to conditions classified elsewhere Pharyngeal dysphagia Dysphagia, pharyngeal phase PD (Parkinson's disease) (HCC) Paralysis agitans [facility]* 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) Unspecified persistent mental disorders due to conditions classified elsewhere Pharyngeal dysphagia Dysphagia, pharyngeal phase PD (Parkinson's disease) (HCC) Paralysis agitans documented in this encounter [facility]* Diagnosis PD (Parkinson's disease) (HCC)- Primary Paralysis agitans documented in this encounter [facility] note* Diagnosis PD (Parkinson's disease) (HCC)- Primary Paralysis agitans Neuropathy, peripheral, hereditary Hereditary peripheral neuropathy [facility]* Diagnosis PD (Parkinson's disease) (HCC)- Primary Paralysis agitans documented in this encounter [facility]* Diagnosis PD (Parkinson's disease) Paralysis agitans documented in this encounter [facility] Summary Purpose Family History No Family History [...] Diagnoses Abnormality of gait PD (Parkinson's disease) (HCC) Procedures PT REHAB FOLLOW UP ORDER THERAPEUTIC EXERCISES RE, EA 15 MIN. 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) Pharyngeal dysphagia PD (Parkinson's disease) (HCC) Procedures SPEECH REHAB FOLLOW UP ORDER TX SPEECH LANG VOICE COMMJ &/AUDITORY PROC IND Tremayne Gibson, [address] [place] [address] [facility] [address] [address] Referral ID Status Reason Start Date Expiration Date V isits Requested Visits Authorized [id number] Closed PCP Requested Referral Auto-Generated Referral 12/01/2021 03/01/2022 1 1 Specialty Diagnoses / Procedures Referred By Lyubov marks Referred To Contact Diagnoses PD (Parkinson's disease) (HCC) Procedures PROVIDER ORDERED FOLLOW UP OFFICE/OUTPATIENT NEW HIGH MDM 60-74 MINUTES Tremayne Gibson, DO [address] [place] [address] Referral ID Status Reason Start Date Expiration Date V isits Requested Visits Authorized [id number] Authorized 07/01/2022 09/29/2022 1 1 Referral ID Status Reason Start Date Expiration Date V isits Requested Visits Authorized [id number] Authorized 03/08/2023 06/06/2023 1 1 Specialty Diagnoses / Procedures Referred By Lyubov marks Referred To Contact [facility] Diagnoses PD (Parkinson's disease) (HCC) Procedures CONSULT TO PHYSICAL THERAPY PHYSICAL THERAPY EVALUATION HIGH COMPLEX 45 MINS Tremayne Gibson, DO [address] [place] [address] [facility] [address] [place] [address] Referral ID Status Reason Start Date Expiration Date Visits Requested Visits Authorized [id number] Pending Review Auto-Generat ed Referral 12/15/2022 11/23/2023 1 1 Additional Source Comments (unrecognized sect ion and content) No Status Records FoundNo Status Records FoundNo Status Records FoundNo Status Records FoundNo Status Records Found INFORMATION SOURCE (unrecogn ized section and content) DATE CREATED AUTHOR 02/11/2021 [facility] DATE CREATED AUTHOR AUTHOR'S ORGANIZ ATION 09/09/2022 [facility] DATE CREATED AUTHOR AUTHOR'S ORGANIZ ATION 10/10/2022 [facility] DATE CREATED AUTHOR AUTHOR'S ORGANIZ ATION 05/13/2023 [facility] DATE CREATED AUTHOR AUTHOR'S ORGANIZ ATION 10/04/2023 [facility] Source Comments (unrecognize d section and content) In the event this informatio n is protected by the Federal Confidentiality of Alcohol and Drug Abuse Patient Records regulations: The Federal rules restrict any use of the information to criminally investigate or prosecute any alcohol or drug abuse patient.[facility] CampusIn the event this information is protected by the Federal Confidentiality of Alcohol and Drug Abuse Patient Records regulations: The Federal rules restrict any use of the information to criminally investigate or prosecute any alcohol or drug abuse patient.[facility] CampusIn the event this information is protected by the Federal Confidentiality of Alcohol and Drug Abuse Patient Records regulations: The Federal rules restrict any use of the information to criminally investigate or prosecute any alcohol or drug abuse patient.[facility] CampusIn the event this information is protected by the Federal Confidentiality of Alcohol and Drug Abuse Patient Records regulations: The Federal rules restrict any use of the information to criminally investigate or prosecute any alcohol or drug abuse patient.[facility] CampusIn the event this information is protected by the Federal Confidentiality of Alcohol and Drug Abuse Patient Records regulations: The Federal rules restrict any use of the information to criminally investigate or prosecute any alcohol or drug abuse patient.[facility] CampusIn the event this information is protected by the Federal Confidentiality of Alcohol and Drug Abuse Patient Records regulations: The Federal rules restrict any use of the information to criminally investigate or prosecute any alcohol or drug abuse patient.[facility] CampusIn the event this information is protected by the Federal Confidentiality of Alcohol and Drug Abuse Patient Records regulations: The Federal rules restrict any use of the information to criminally investigate or prosecute any alcohol or drug abuse patient.[facility] CampusIn the event this information is protected by the Federal Confidentiality of Alcohol and Drug Abuse Patient Records regulations: The Federal rules restrict any use of the information to criminally investigate or prosecute any alcohol or drug abuse patient.[facility] CampusIn the event this information is protected by the Federal Confidentiality of Alcohol and Drug Abuse Patient Records regulations: The Federal rules restrict any use of the information to criminally investigate or prosecute any alcohol or drug abuse patient.[facility] CampusIn the event this information is protected by the Federal Confidentiality of Alcohol and Drug Abuse Patient Records regulations: The Federal rules restrict any use of the information to criminally investigate or prosecute any alcohol or drug abuse patient.[facility] CampusIn the event this information is protected by the Federal Confidentiality of Alcohol and Drug Abuse Patient Records regulations: The Federal rules restrict any use of the information to criminally investigate or prosecute any alcohol or drug abuse patient.[facility] Reason for Visit (unrecogniz ed section and content) Reason Comments Speech Progress Note Specialty Diagnoses / Procedures Referred By Lyubov marks Referred To Contact SPEECH THERAPY Diagnoses PD (Parkinson's disease) (HCC) Procedures CONSULT TO SPEECH THERAPY OFFICE/OUTPATIENT [facility] HIGH MDM 60-74 MINUTES EVAL SPEECH SOUND PRODUCT LANGUAGE COMPREHENSION TX SPEECH LANG VOICE COMMJ &/AUDITORY PROC IND Tremayne Gibson, DO [address] [id number] [facility] [address] [place] [phone] Referral ID Status Reason Start Date Expiration Date Visits Requested Visits Authorized [id number] Authorized Auto-Generat ed Referral 10/07/2021 08/05/2022 30 30 Reason Comments Speech Therapy Reason Comments Physical Therapy PT Progress Note Specialty Diagnoses / Procedures Referred By Lyubov marks Referred To Contact PHYSICAL THERAPY Diagnoses PD (Parkinson's disease) ([facility]) Procedures CONSULT TO PHYSICAL THERAPY PHYSICAL THERAPY EVALUATION HIGH COMPLEX 45 MINS THERAPEUTIC EXERCISES RE, EA 15 MIN. Tremayne Gibson DO [address] [place] [address] [facility] [address] [address] Referral ID Status Reason Start Date Expiration Date Visits Requested Visits Authorized [id number] Authorized Auto-Generat ed Referral 10/07/2021 08/05/2022 30 30 Reason Comments Speech Progress Note Specialty Diagnoses / Procedures Referred By Lyubov marks Referred To Contact SPEECH THERAPY Diagnoses PD (Parkinson's disease) ([facility]) Procedures CONSULT TO SPEECH THERAPY OFFICE/OUTPATIENT NEW HIGH MDM 60-74 MINUTES EVAL SPEECH SOUND PRODUCT LANGUAGE COMPREHENSION TX SPEECH LANG VOICE COMMJ &/AUDITORY PROC IND Tremayne Gibson DO [address] [place] [phone] [facility] [address] [place] [phone] Reason Comments Results MBS Reason Comments Established Patient Tremor Tremors little worse Numbness in both feet mostly left Specialty Diagnoses / Procedures Referred By Lyubov marks Referred To Contact Diagnoses PD (Parkinson's disease) ([facility]) Procedures PROVIDER ORDERED FOLLOW UP OFFICE/OUTPATIENT NEW HIGH MDM 60-74 MINUTES Tremayne Gibson DO [address] [phone] Referral ID Status Reason Start Date Expiration Date Visits Re quested Visits Authorized [id number] Closed 07/01/2022 09/29/2022 1 1 Reason Comments Forms Reason Comments Follow Up Specialty Diagnoses / Procedures Referred By Lyubov marks Referred To Contact Diagnoses PD (Parkinson's disease) Procedures PROVIDER ORDERED FOLLOW UP OFFICE/OUTPATIENT [facility] 60-74 MINUTES Tremayne Gibson, [address] [place] [address] Referral ID Status Reason Start Date Expiration Date Visits Re quested Visits Authorized [id number] Closed 03/08/2023 06/06/2023 1 1 FOR RECORDS [...] BE BASED ON THE PRIMARY CLINICAL RECORDS. [employer] provides no warranty or guarantee of the accuracy or completeness of information in this document.
== END 2023-09-28 09:19 | disposition home or self-care (01) ==
LOC: LAB 09:18
PROVIDERS: PCP Internal Medicine; Visit Provider Internal Medicine
DX: Z00.00 Encounter for general adult medical examination without abnormal findings (principal)
CPT/HCPCS: 36415; 84153

== ENCOUNTER 2023-10-03 08:31 | Outpatient (OUT) | payer OTHER, SELFPAY ==
--- NOTE | 2023-10-03 08:35 | CT_ITS ---
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 Axial, Coronal, and Sagittal images. Dose reduction techniques were achieved by using automated exposure control and/or adjustment of mA and/or kV according to patient size and/or use of iterative reconstruction technique. FINDINGS: LUNGS: No visible pulmonary disease. PLEURA: No mass, effusion, or pneumothorax. VASCULATURE: Normal postcontrast opacification of the central pulmonary arterial tree with no filling defect to suggest a pulmonary embolus NOEL: No mass or adenopathy. MEDIASTINUM: No mass or adenopathy. CARDIAC: No enlargement, pericardial thickening, or significant calcification. AORTA: Borderline aneurysm of the ascending thoracic aorta measuring a maximum of 4.2 x 4.2 cm in diameter. No aortic aneurysm or dissection. Atherosclerosis CHEST WALL: No mass or axillary adenopathy. Left pacemaker BONES: No bone lesion or fracture. LIMITED ABDOMEN: No suspicious findings. Limited images of the upper abdomen. OTHER: Negative. CT/CT angio chest IMPRESSION: Borderline aneurysm of the ascending thoracic aorta measuring 4.2 x 4.2 cm in diameter Electronically authenticated by: AMADOU MENENDEZ Date: 10/03/2023 10:31
--- OUTSIDE RECORDS SUMMARY | 2023-10-03 08:36 | XMS_ITS | CCD ---
Author Name Unknown Address [address] [place] [address] Organization [facility] Care Team Providers Care Flight Engineer Manager Name Role Phone Unavailable Primary Care Provider UnavailTREMAYNE Singh Attending Unavailable TREMAYNE GIBSON Referring Unavailable KACY, DR HANNAH Admitting Unavailable BALL, DR HANNAH Attending Unavailable BALL, DR HANNAH Primary Care Unavailable BALL, DR HANNAH Consulting Unavailable MISC, DR HU Admitting Unavailable MISC, DR HU Attending Unavailable KACY, DR HANNAH Primary Care Unavailable MISC, DR HU Consulting Unavailable GALLO, DR MAMIE Contreras Consulting Unavailable Tabby Lindo Unavailable Taras Pickett Unavailable Unavailable Primary Care Provider UnavailEYAL Nelson Referring Unavailable BUTCH, EYAL Attending Unavailable EYAL RAE Referring Unavailable EYAL RAE Attending Unavailable TREMAYNE GIBSON Attending Unavailable TREMAYNE GIBSON Referring Unavailable MECCA AWAN Attending Unavailable TREMAYNE GIBSON Referring Unavailable Allergies Allergy Classification Reported Allergen(s) Allergy Type Date of Onset Reaction(s) Facility (1 source) ALLERGIES NOT ON FILE; Translations: [ALLERGIES NOT ON FILE] Propensity to adverse reactions (disorder) [facility] Repository Medications Current Medications Medication Drug Class(es) Dates Sig (Normalized) Sig (Original) aspirin 325 mg oral tablet (20 sources) Platelet Aggregation Inhibitor, Nonsteroidal Anti-inflammatory Drug take 1 tablet by mouth every twenty-four hours Aspirin 325 MG 1 tablet Orally Once a day Active Comment on above: Take 325 mg by mouth once daily. benzonatate 100 mg oral capsule (2 sources) Non-narcotic Antitussive Start: 08-10-2023 take 1 capsule by mouth every eight hours Benzonatate 100 MG 1 capsule as needed Orally Three times a day for 10 days Aug, Active carbidopa 10 mg / levodopa 100 mg oral tablet (17 sources) Aromatic Amino Acid Decarboxylation Inhibitor, Aromatic Amino Acid Start: 10-03-2022 take 1 tablet by mouth every eight hours Sinemet 10-100 MG 1 tablet Orally Three times a day for 30 days Sep, Active Start: 12-29-2021 End: 11-23-2023 take 1 tablet by mouth three times daily carbidopa-levodopa (SINEMET) 25-100 mg per tablet Indications: PD (Parkinson's disease) Take 1 tablet by mouth three times daily. 270 tablet 3 11/23/2022 11/23/2023 Active Carbidopa-Levodo pa 25-100 MG TAKE 1 TABLET BY MOUTH THREE TIMES A DAY FOR 30 DAYS for 90 days replaces previous script sent Active Comment on above: Take 1 tablet by bushra th three times daily. 24 hr dilTIAZem hydrochloride 240 mg extended release oral capsule (17 sources) Calcium Channel Eugenio take 1 capsule by mouth once daily dilTIAZem HCl ER Coated Beads 240 MG TAKE 1 CAPSULE BY MOUTH EVERY DAY Oral Active Comment on above: Take 240 mg by mouth once daily. doxycycline hyclate 100 mg oral capsule (2 sources) Tetracycline-cla ss Drug Start: take 1 capsule by mouth every twelve hours Doxycycline Hyclate 100 MG 1 capsule Orally Twice a day for 5 days Aug, Active rimegepant 75 mg disintegrating oral tablet (3 sources) Nurtec 75 MG 1 tablet on the tongue and allow to dissolve Orally Active Completed/Discontinued Medications Medication Drug Class(es) Dates Sig (Normalized) Sig (Original) azithromycin 250 mg oral tablet (12 sources) Macrolide Antimicrobial Start: 06-21-2013 Azithromycin 250 MG 2 tablet on the first day, then 1 tablet daily for 4 days Orally Once a day for 5 day(s) Sep, Not-Taking/PRN predniSONE 20 mg oral tablet (12 sources) Start: 09-19-2022 take 1 tablet by mouth every twelve hours prednisone 20 MG 1 tablet Orally Twice a day for 5 days Sep, Not-Taking/PRN Start: 06-21-2013 take 1 tablet by mouth every t welve hours Problems Active Problems Problem Classification Problem Date Documented Da te Episodic/Chronic Abdominal hernia (9 sources) Inguinal hernia; Translations: [Unilateral inguinal hernia, without obstruction or gangrene, not specified as recurrent] Episodic Acute bronchitis (7 sources) Acute bronchitis; Translations: [Acute bronchitis due to other specified organisms] Onset: 11-17-2014 Episodic Cardiac dysrhythmias (9 sources) Paroxysmal atrial fibrillation; Translations: [Paroxysmal atrial fibrillation] Chronic Cardiac dysrhythmias (6 sources) Bradycardia; Translations: [Bradycardia, unspecified] Episodic Chronic kidney disease (3 sources) Chronic kidney disease stage 3; Translations: [Chronic kidney disease, stage 3 unspecified] Onset: 05-06-2018 Chronic Chronic obstructive pulmonary disease and bronchiectasis (3 sources) Bronchitis; Translations: [Bronchitis NOS] Episodic Conduction disorders (14 sources) Presence of cardiac pacemaker; Translations: [Cardiac pacemaker] Onset: 09-20-2022 Chronic Disorders of lipid metabolism (13 sources) Hypercholesterolemi a; Translations: [Pure hypercholesterolemi a, unspecified] Onset: 05-06-2018 Chronic Headache; including migraine (9 sources) Migraine; Translations: [Migraine, unspecified, not intractable, without status migrainosus] Chronic Headache; including migraine (3 sources) Headache; Translations: [Headache, unspecified] Episodic Hyperplasia of prostate (16 sources) Lower urinary tract symptoms due to benign prostatic hypertrophy; Translations: [Benign prostatic hyperplasia with lower urinary tract symptoms] Chronic Other acquired deformities (3 sources) Acquired spondylolisthesis; Translations: [Spondylolisthesis, lumbosacral region] Episodic Other nervous system disorders (12 sources) Hereditary peripheral neuropathy; Translations: [Hereditary and idiopathic neuropathy, unspecified] Onset: 10-06-2021 10-06-2021 Chronic Other nervous system disorders (2 sources) Hereditary and idiopathic neuropathy, unspecified; Translations: [Neuropathy, peripheral, hereditary] Onset: 09-08-2022 Chronic Other nervous system disorders (3 sources) Polyneuropathy; Translations: [Polyneuropathy, unspecified] Chronic Other nervous system disorders (1 source) Polyneuropathy, unspecified Chronic Other nervous system disorders (9 sources) Tremor; Translations: [Tremor, unspecified] Episodic Other nervous system disorders (9 sources) Paresthesia; Translations: [Paresthesia of skin] Episodic Other nervous system disorders (1 source) Paresthesia of skin Episodic Other nutritional; endocrine; and metabolic disorders (3 sources) Overweight; Translations: [Overweight] Episodic Other nutritional; endocrine; and metabolic disorders (2 sources) Abnormal weight loss Episodic Other screening for suspected conditions (not mental disorders or infectious disease) (1 source) Encounter for screening for malignant neoplasm of prostate; Translations: [ENC SCREEN MALIG NEOPLASM PROSTATE] Onset: 10-08-2022 Episodic Parkinson`s disease (20 sources) Impaired cognition; Translations: [Parkinson's disease] Onset: 10-06-2021 Chronic Spondylosis; intervertebral disc disorders; other back problems (3 sources) Lumbosacral spondylosis without myelopathy; Translations: [Spondylosis without myelopathy or radiculopathy, lumbar region] Chronic Syncope (1 source) Syncope and collapse Episodic Unclassified (2 sources) Parkinson's disease; Translations: [PD (Parkinson's disease)] Onset: 10-06-2021 05-10-2023 Chronic Unclassified (1 source) PD (Parkinson's disease); Translations: [PD (Parkinson's disease)] Onset: 10-06-2021 Past or Other Problems Problem Classification Problem Date Documented Da te Episodic/Chronic Noninfectious gastroenteritis (3 sources) Non-infective enteritis and colitis; Translations: [Noninfective gastroenteritis and colitis, unspecified] Onset: 11-17-2014 Episodic Other gastrointestinal disorders (14 sources) Pharyngeal dysphagia; Translations: [Dysphagia, pharyngeal phase] Onset: 10-13-2021 Episodic Other gastrointestinal disorders (4 sources) Dysphagia, pharyngeal phase; Translations: [DYSPHAGIA PHARYNGEAL PHASE] Onset: 11-01-2021 Episodic Other nervous system disorders (12 sources) Abnormal gait; Translations: [Unspecified abnormalities of gait and mobility] Onset: 10-14-2021 10-14-2021 Episodic Other upper respiratory disease (1 source) Hypokinetic parkinsonian dysphonia; 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] Onset: 10-13-2021 10-13-2021 Episodic Other upper respiratory infections (10 sources) Acute maxillary sinusitis; Translations: [Acute maxillary sinusitis, unspecified] Onset: 11-17-2014 Episodic Spondylosis; intervertebral disc disorders; other back problems (3 sources) Low back pain; Translations: [Low back pain, unspecified] Onset: 09-25-2016 Episodic Unclassified (1 source) Persistent cough R05.3 Unclassified (1 source) Acute cough R05.1 Results Test Name Value Interpretation Reference Range Facility [facility] 05-10-2023 CNOV Office Visit (NRESAV ) -------- ELENIJAK Grant ([id number]) 1960 M Date Time Provider Department 05/10/23 11:00 AM TREMAYNE GIBSON NRESAV During your visit today, we recorded the following information about you: Pulse Blood pressure 85/minute 125/87 Abhishek Cotto LPN 05/10/2023 11:32 AM Signed 05/09/2023 PROMIS Global Health Physical Health Summary Physical health: Very good Everyday physical activity, ability: Completely Fatigue: Mild Pain level: 0 No Pain General health: Very good Social activities/roles, ability: Very good Physical Health T-Score 57.7 (Very Good) Physical Health Percentile 78 PROMIS Global Health Mental Health Summary Quality of life: Very good Mental health (mood,thinking): Excellent Social satisfaction: Excellent Emotional problems (anxious,depressed): Never Mental Health T-Score 62.5 (Excellent) Mental Health Percentile 89 PHQ-9 Score: 1(Minimal Depression) PHQ-9 Self-Harm: Not at all PROMIS PHYSICAL FUNCTION SCORE 11/08/2021 10/11/2021 Promis Physical Function Percentile 38 58 Percentiles provide an indication of how a patient's score ranks in relation to the [place] general population. > 31st percentile is within normal limits or better *< 31st percentile is at least ? SD worse than population, which may be clinically relevant < 16th percentile is at least 1 SD worse than population and warrants attention Sleep Apnea Probability Snores loudly: Tired, fatigued or sleepy in daytime: Stops breathing or choking/gasping during sleep: High blood pressure: Sleep Apnea Probability Score: (Sleep study not recommended) Tremayne Gibson DO 05/10/2023 11:32 AM Signed [facility] - FOLLOW UP EVALUATION Tremayne Gibson [address] [facility] [id number] Jak Ramos is a 63 year old male with a history of PD. He is seen alone. Interval History Since Last Visit: Went to PD support group meeting. He is continuing to exercise. BPs have been a little high - following with cardiology for pacemaker. More flatulence. Meds are working well. Sinemet is very helpful. Planned for MOHS in next week. No falls are reported. Workup for peripheral neuropathy was negative. Still goes ot PT. Parkinson's Medications Schedule: Medications 6A 10A 245P Sinemet 25/100 1 1 1 The patient denies any recent illness or infections. The patient denies any hospitalization since the last office visit. The patient denies any changes to their medical history or new diagnoses. The patient denies any surgery/procedure since their last visit. The patient denies any headache, chest pain, palpitations, shortness of breath or abdominal pain. The patient denies any seizures, numbness/tingling, lightheadedness or vertiginous symptoms. The patient denies any recent suicidal ideation or attempts to harm themselves or others. The patient denies any new pain Previous Parkinson's Medications: None In addition, the following Parkinson-associated features were evaluated: Daily activities Difficulties with eatin (none) Difficulties in dressing: Yes (slight) Difficulties with hygiene activities: 0 (none) Difficulties with handwritin (none) Difficulties with doing hobbies and other activities: 0 (none) Difficulties turning in bed: 0 (none) Difficulties getting out of bed, car or chair: No Tremors/Gait/Balance Shaking or tremors: Yes (slight) Walking and balance problems: Yes (slight) Gait freezin (none) Autonomic/Pain Lightheadeness on standing: Yes (slight) Urinary problems: 0 (none) Constipation problems: Yes (slight) Pain and other sensations: 0 (none) Speech/Swallowing Speech problems: 0 (none) Droolin (none) Chewing and swallowing problems: 0 (none) Sleep/Fatigue Problems sleeping at night: Yes (slight) Daytime sleepiness: Yes (slight) Fatigue: 0 (none) REM sleep behavior disorder: No Mood/Behavior/Cognition Cognitive impairment: No Hallucinations and delusions: No Apathy: No Depression: PQH-9 = 1 usually representing no significant (0-4) depression. Anxiety: JUAN C-7 = 0 usually representing no significant (0-4) anxiety. Finally, the following table shows the patient's overall global physical and mental health using the PROMIS scale relative to the previous visit: PROMIS-10 Flowsheet Row Office Visit from 05/10/2023 in Neurology Appointment from 03/08/2023 in Neurology Global Physical Health T Score 57.7 57.7 Global Mental Health T Score 62.5 62.5 0-10 Standard Pain Scale 5 5 *PROMIS-10 scoring scale: mean = 50, over 50 is above average, under 50 is below average Allergies: ALLERGIES No Known Allergies Current Medications: Current Outpatient Medications Medication Sig carbidopa-levodopa (SINEMET) 25-100 mg per tablet Take 1 tablet by mouth three times daily. dilTIAZem CR (TIAZAC,TAZTIA XT) 240 m (more content not included)... Normal [facility] 04-06-2023 CNPN Telephone (NIQ) -------- JAK RAMOS ([id number]) 1960 M Date Time Provider Department 04/06/23 TREMAYNE GIBSON NIQ During your visit today, we recorded the following information about you: Flora Quevedo 04/06/2023 2:07 PM Signed Received form by fax from [facility] in [place]. They are asking if the patient can participate in a Parkinsons fitness class. Scanned form to patient's chart for provider signature. Drew Mora RN 04/06/2023 3:01 PM Signed Form printed and in nursing outbox for MD signature. NATHAN Thornton, [facility] 04/12/2023 11:04 AM Signed Routed in [employer] for signature and auto fax to [facility] at fax number [phone]. Allergies As of Date: 04/06/2023 (No Known Allergies) Date Reviewed: 01/15/2023 Reviewed by: Abhishek Cotto LPN - Fully Assessed Reason for Visit: Forms [913] Prescriptions as of 04/12/2023 - carbidopa-levodopa (SINEMET) 25-100 mg per tablet Take 1 tablet by mouth three times daily. - dilTIAZem CR (TIAZAC,TAZTIA XT) 240 mg 24 hr capsule Take 240 mg by mouth once daily. - aspirin 325 mg tablet Take 325 mg by mouth once daily. 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 CNOVon 01-15-2023 CNOV Office Visit (NNFHCR ) -------- JAK RAMOS ([id number]) 1960 M Date Time Provider Department 01/15/23 10:00 AM MECCA AWANYOMAIRA During your visit today, we recorded the following information about you: Pulse Blood pressure 81/minute 121/80 Mecca Awan MD 01/15/2023 10:58 AM Addendum Neurology Clinic - January 15, 2023 Reason for visit: Mr. Ramos is referred by Tremayne Gibson for my opinion regarding neuropathy. My final recommendation will be communicated back to the requesting physician by way of shared medical record or letter. HISTORY OF PRESENT ILLNESS: Patient is a 62 year old, right-handed, White, male with history of syncope, PD. History gathered from patient and electronic medical records. He started having PD symptoms - ambulation, tremors in Jul 2021, established with Dr. Gibson in Oct 2021, diagnosed with PD; had PT and speech therapies. He was started on sinemet in December 2021. Medication has helped with tremors and balance. He thinks he has neuropathy - has abnormal gait - dragging LLE, no falls, may stumble; may have intermittent numbness in the L foot. May have difficulty getting up from the floor; LUE does not swing when he walks. May have less dexterity in the L hand. Other symptoms : cramps in the foot (in the morning, L>R). He denies having constant numbness/tingling/sharp/ burning pain; no night awakenings. Gait is improved with PT and sinemet. He continues to play softball. He is being referred to [place] [facility] for family history of neuropathy. He mentions that his mother (María, 87 y/o))has neuropathy. She started having tingling in her feet in her 60s, she reportedly had EMG then that showed the start of peripheral neuropathy and was recommended to start B-vitamins. Her neuropathy reported has progressed over time - stopped driving in 2017 and currently uses assistive device to ambulate. A maternal uncle(Bienvenido, 85 y/o) may have neuropathy but he denies it. He is a retired a surgeon - stopped horse back riding, may have difficulty getting up from a chair. He also started having neuropathy symptoms in his 60s. A maternal aunt(Sydnee Robbins, 80 y/o) - has numbness in the feet, no tingling/sharp sensations, no balance issues; started having symptoms in her 70s. She wears socks all the time, she is a retired nurse. No known family history of children/young adults having neuropathy symptoms. Patient does not have a dietary preference, no EtOH; no supplements. No known exposure to heavy metals or toxins, no chemotherapeutic agents. PAST MEDICAL HISTORY Diagnosis Date Neurocardiogenic syncope PD (Parkinson's disease) ([facility]) 12/2021 PAST SURGICAL HISTORY Procedure Laterality Date ANESTH,PACEMAKER INSERTION MEDICATIONS: Current Outpatient Medications Medication Sig Dispense Refill carbidopa-levodopa (SINEMET) 25-100 mg per tablet Take 1 tablet by mouth three times daily. 270 tablet 3 dilTIAZem CR (TIAZAC,TAZTIA XT) 240 mg 24 hr capsule Take 240 mg by mouth once daily. aspirin 325 mg tablet Take 325 mg by mouth once daily. No current facility-administered medications for this visit. ALLERGY: ALLERGIES No Known Allergies FAMILY HISTORY Problem Relation Age of Onset Neuropathy Mother Neuropathy Maternal Grandmother Neuropathy Maternal Aunt Neuropathy Maternal Uncle Social History Tobacco Use Smoking status: Never Smokeless tobacco: Never DATA: Radiology: Laboratory: Other: REVIEW OF SYSTEMS: per HPI General: no wt. loss/gain, change in appetite, fever, malaise HEENT: (+) headache - migraine, (-)problems with vision, hearing Cardiac: no chest pain, palpitation Respiratory: no shortness of breath, cough, cold GI: (+) change in bowel habits - constipation, (-) abdominal pain : no incontinence, frequency, urgency Musculoskeletal: no joint/muscle pain, no swelling Skin: no rash Endocrine: no cold/hot intolerance, thyroid, diabetes Immunologic: no known immunologic disorders Neurologic/Psychiatric: no other known neurologic or psychiatric problems PHYSICAL EXAM: BP 121/80 Pulse 81 HEENT: atraumatic, normocephalic Neck: supple Extremities: good pulses NEUROLOGICAL EXAM: MSE: Awake, alert, oriented x 3, language intact, attention and concentration normal CN: EOMI, no nystagmus, V1-V3 intact, no facial weakness, normal hearing to communication, good elevation of soft palate, tongue midline with good strength, no dysarthria Motor: Gait: able to tandem, toe and heel walk; (+) reduced arm swing, no en bloc turning No pronator drift, rapid finger movements are symmetrical (+) increased tone in bilateral UEs and normal bulk (+) minimal postural tremors Power: Right Left Neck flexion 5/5 Neck extension 5/5 Trapezius 5/5 5/5 Deltoids 5/5 5/5 Biceps 5/5 5/5 Triceps 5/5 5/5 Wrist Ext 5/5 5/5 Wrist Flex 5 (more content not included)... Normal [facility] CBC AUTO DIFFon 10-03-2022 BASO # 0.0 103/ul Normal 0.0-0.1 [facility] Comment on above: Performed By: #### C BC #### [facility] [address] [address] [address] Rosalio Burks Basophils/100 WBC (Bld) 0.3 % Normal 0.2-2.0 [facility] Comment on above: Performed By: #### C BC #### [facility] [address] [address] [address] Rosalio Burks EO # 0.1 103/ul Normal 0.0-0.7 [facility] Comment on above: Performed By: #### C BC #### [facility] [address] [place] [address] Dr. Rosalio Burks Eosinophils/100 WBC (Bld) 1.0 % Normal 0.9-7.0 [facility] Comment on above: Performed By: #### C BC #### [facility] [address] [address] [address] Rosalio Burks Erythrocyte distribution width (RBC) [Ratio] 11.7 % Normal 11.0-15.0 [facility] Comment on above: Performed By: #### C BC #### [facility] [address] [place] [address] Dr. Rosalio Burks Hematocrit (Bld) [Volume fraction] 43.2 % Normal 42.0-54.0 [facility] Comment on above: Performed By: #### C BC #### [facility] [address] [address] [address] Rosalio Burks Hemoglobin (Bld) [Mass/Vol] 15.0 g/dL Normal 14.0-18.0 [facility] Comment on above: Performed By: #### C BC #### [facility] [address] [place] [address] Dr. Rosalio Burks IG # 0.02 10e3/ul Normal 0.00-0.03 [facility] Comment on above: Performed By: #### C BC #### [facility] [address] [place] [address] Dr. Rosalio Burks IG % 0.3 % Normal 0.0-0.5 [facility] Comment on above: Performed By: #### C BC #### [facility] [address] [place] [address] Dr. Rosalio Burks LYMPH # 1.5 103/ul Normal 1.2-3.8 [facility] Comment on above: Performed By: #### C BC #### [facility] [address] [place] [address] Dr. Rosalio Burks Lymphocytes/100 WBC (Bld) 23.3 % Normal 20.5-60.0 [facility] Comment on above: Performed By: #### C BC #### [facility] [address] [place] [address] Dr. Rosalio Burks MANUAL DIFF REQ NO Normal [facility] Comment on above: Performed By: #### C BC #### [facility] [address] [place] [address] Dr. Rosalio Burks MCH (RBC) [Entitic mass] 31.9 pg Normal 25.9-34.0 [facility] Comment on above: Performed By: #### C BC #### [facility] [address] [place] [address] Dr. Rosalio Burks MCHC (RBC) [Mass/Vol] 34.7 g/dL Normal 29.9-35.2 [facility] Comment on above: Performed By: #### C BC #### [facility] [address] [place] [address] Dr. Rosalio Burks MCV (RBC) [Entitic vol] 91.9 fL Normal 80.0-94.0 [facility] Comment on above: Performed By: #### C BC #### [facility] [address] [place] [address] Dr. Rosalio Burks MONO # 0.6 103/ul Normal 0.3-0.8 [facility] Comment on above: Performed By: #### C BC #### [facility] [address] [place] [address] Dr. Rosalio Burks Monocytes/100 WBC (Bld) 10.1 % Normal 1.7-12.0 [facility] Comment on above: Performed By: #### C BC #### [facility] [address] [place] [address] Dr. Rosalio Burks NEUT # 4.0 103/ul Normal 1.4-6.5 [facility] Comment on above: Performed By: #### C BC #### [facility] [address] [place] [address] Dr. Rosaloi Burks Neutrophils/100 WBC (Bld) 65.0 % Normal 43.0-75.0 [facility] Comment on above: Performed By: #### C BC #### [facility] [address] [place] [address] Dr. Rosalio Burks Platelet mean volume (Bld) [Entitic vol] 10.3 fL Normal 9.5-13.5 [facility] Comment on above: Performed By: #### C BC #### [facility] [address] [place] [address] Dr. Rosalio Burks PLT 268 103/ul Normal 150-450 [facility] Comment on above: Performed By: #### C BC #### [facility] [address] [place] [address] Dr. Rosalio Burks RBC 4.70 106/ul Normal 4.70-6.10 [facility] Comment on above: Performed By: #### C BC #### [facility] [address] [place] [address] Dr. Rosalio Burks WBC 6.2 103/ul Normal 4.0-11.0 [facility] Comment on above: Performed By: #### C BC #### [facility] [address] [place] [address] Dr. Rosalio Burks Complete Blood Count and Dif gerald 10-03-2022 Anisocytosis Ql (Bld) [employer] Other Basophilic stippling LM Ql (Bld) [employer] Other RBC morphology finding Nom (Bld) [employer] Other Complete Blood Count and Diff [employer] Other Comprehensive Metabolic Pane laura 10-03-2022 Albumin [Mass/Vol] 3.359257 g/dL 3.4-5.0 g/dL [facility] Other Calcium [Mass/Vol] 9.4722863 mg/dL 8.5-10.1 mg/dL [facility] Other CO2 [Moles/Vol] 30.45789909 mmol/L 21.0-3 2.0 mmol/L [employer] Other Creatinine [Mass/Vol] 1.51118538 mg/dL 0.70-1.30 mg/dL [facility] Other Potassium [Moles/Vol] 4.99961991 mmol/L 3.5-5.1 mmol/L [employer] Other Protein [Mass/Vol] 7.876034 g/dL 6.4-8.2 g/dL [employer] Other Urea nitrogen [Mass/Vol] 17.3321402 mg/dL 7.0-18.0 mg/dL [facility] Other Comprehensive Metabolic Panel see note [employer] Other Comprehensive Metabolic Panel 141 mmol/L 136-145 mmol/L [employer] Other Comprehensive Metabolic Panel 83 mg/dL 74-106 mg/dL [facility] Other Comprehensive Metabolic Panel >60 mL/min/1.73m2 >=60 mL/min/1.73m2 [employer] Other Comprehensive Metabolic Panel 0.3 mg/dL 0.2-1.0 mg/dL [employer] Other Comprehensive Metabolic Panel 3.4 g/dL [employer] Other LIPID PROFILEon 10-03-2022 CHOL-HDL RATIO NORM SEE BELOW Normal [facility] Comment on above: Result Comment: 3.3 - 4.4 LOW RISK 4.4 - 7.1 AVERAGE RISK 7.1 - 11.0 MODERATE RISK >11.0 HIGH RISK Performed By: #### C MP, LIPID #### [facility] [address] [address] [address] Rosalio Burks Cholesterol [Mass/Vol] 202 mg/dL Critically high <=200 mg/dL [facility] Comment on above: Performed By: #### C MP, LIPID #### [facility] [address] [address] [address] Rosalio Burks Cholesterol in HDL [Mass/Vol] 33 mg/dL Critically low 40-60 mg/dL [facility] Comment on above: Performed By: #### C MP, LIPID #### [facility] [address] [address] [address] Rosalio Burks Cholesterol in LDL [Mass/Vol] 106.4 mg/dL Normal [facility] Comment on above: Performed By: #### C MP, LIPID #### [facility] [address] [address] [address] Rosalio Burks Cholesterol.total /Cholesterol in HDL [Mass ratio] 6.1 {ratio} [facility] Comment on above: Performed By: #### C MP, LIPID #### [facility] [address] [address] [address] Rosalio Burks HDL NORMAL > or = 60 mg/dl - LO W CARDIOVASCULAR RISK <40 mg/dl - HIGH CARDIOVASCULAR RISK Normal [facility] Comment on above: Performed By: #### C MP, LIPID #### [facility] [address] [address] [address] Rosalio Burks LDL CALC NORMAL SEE BELOW Normal [facility] Comment on above: Result Comment: <100 mg/dl OPTIMAL 100 - 129 mg/dl NEAR OR ABOVE OPTIMAL 130 - 159 mg/dl BORDERLINE HIGH 160 - 189 mg/dl HIGH >190 mg/dl VERY HIGH Performed By: #### C MP, LIPID #### [facility] [address] [address] [address] Rosalio Burks Triglyceride [Mass/Vol] 313 mg/dL Critically high <=150 mg/dL [facility] Comment on above: Performed By: #### C MP, LIPID #### [facility] [address] [address] [address] Rosalio Burks VLDL CALC 62.6 mg/dL Normal [facility] Comment on above: Performed By: #### C MP, LIPID #### [facility] [address] [address] [address] Rosalio Burks Lipid Panelon 10-03-2022 Lipid Panel > or = 60 mg/dl - LO W CARDIOVASCULAR RISK <40 mg/dl - HIGH CARDIOVASCULAR RISK [facility] [employer] Other Lipid Panel SEE BELOW [employer] Other Lipid Panel 106.4 mg/dL [facility] [employer] Other Lipid Panel 62.6 mg/dL [facility] [employer] Other Office Visiton 10-03-2022 Follow-up visit [id number] Jurgen Ramos S 1960 M Date Provider Department Center 10/03/2022 241-BUTCH, EYAL [facility] No family history on file Level of Service:72602 IN OFFICE/OUTPATIENT ESTABLISHED LOW MDM 20-29 MIN Reason for Visit and Comments: Follow-up [689155] - [address] [facility] PROF 14(COMP METB)on 023 Albumin [Mass/Vol] 3.9 g/dL Normal 3.4-5.0 [facility] Comment on above: Performed By: #### C MP, LIPID #### [facility] [address] [place] [address] Dr. Rosalio Burks Albumin/Globulin [Mass ratio] 1.1 {ratio} [facility] Comment on above: Performed By: #### C MP, LIPID #### [facility] [address] [place] [address] Dr. Rosalio Burks ALP [Catalytic activity/Vol] 108 U/L 46-116 U/L [facility] Comment on above: Performed By: #### C MP, LIPID #### [facility] [address] [address] [address] Rosalio Burks ALT [Catalytic activity/Vol] 15 U/L Critically low 16-63 U/L [facility] Comment on above: Performed By: #### C MP, LIPID #### [facility] [address] [place] [address] Dr. Rosalio Burks Anion gap [Moles/Vol] 10.4 mmol/L [facility] Comment on above: Performed By: #### C MP, LIPID #### [facility] [address] [place] [address] Dr. Rosalio Burks AST [Catalytic activity/Vol] 15 U/L 15-37 U/L [facility] Comment on above: Performed By: #### C MP, LIPID #### [facility] [address] [place] [address] Dr. Rosalio Burks Bilirubin [Mass/Vol] 0.3 mg/dL Normal 0.2-1.0 [facility] Comment on above: Performed By: #### C MP, LIPID #### [facility] [address] [place] [address] Dr. Rosalio Burks Calcium [Mass/Vol] 9.0 mg/dL Normal 8.5-10.1 [facility] Comment on above: Performed By: #### C MP, LIPID #### [facility] [address] [place] [address] Dr. Rosalio Burks Chloride [Moles/Vol] 104 mmol/L 98-107 mmol/L [facility] Comment on above: Performed By: #### C MP, LIPID #### [facility] [address] [place] [address] Dr. Rosalio Burks CO2 [Moles/Vol] 30.7 mmol/L Normal 21.0-32.0 [facility] Comment on above: Performed By: #### C MP, LIPID #### [facility] [address] [place] [address] Dr. Rosalio Burks Creatinine [Mass/Vol] 1.09 mg/dL Normal 0.70-1.30 [facility] Comment on above: Performed By: #### C MP, LIPID #### [facility] [address] [address] [address] Rosalio Burks EGFR-AF [facility] >60 Normal >=60 [facility] Comment on above: Performed By: #### C MP, LIPID #### [facility] [address] [place] [address] Dr. Rosalio Burks EGFR-NON AF [facility] >60 Normal >=60 [facility] Comment on above: Performed By: #### C MP, LIPID #### [facility] [address] [address] [address] Rosalio Burks Globulin (S) [Mass/Vol] 3.4 g/dL Normal [facility] Comment on above: Performed By: #### C MP, LIPID #### [facility] [address] [place] [address] Dr. Rosalio Burks Glucose [Mass/Vol] 83 mg/dL Normal 74-106 [facility] Comment on above: Performed By: #### C MP, LIPID #### [facility] [address] [place] [address] Dr. Rosalio Burks Potassium [Moles/Vol] 4.1 mmol/L Normal 3.5-5.1 [facility] Comment on above: Performed By: #### C MP, LIPID #### [facility] [address] [place] [address] Dr. Rosalio Burks Protein [Mass/Vol] 7.3 g/dL Normal 6.4-8.2 [facility] Comment on above: Performed By: #### C MP, LIPID #### [facility] [address] [place] [address] Dr. Rosalio Burks Sodium [Moles/Vol] 141 mmol/L Normal 136-145 [facility] Comment on above: Performed By: #### C MP, LIPID #### [facility] [address] [place] [address] Dr. Rosalio Burks Urea nitrogen [Mass/Vol] 17.0 mg/dL Normal 7.0-18.0 [facility] Comment on above: Performed By: #### C MP, LIPID #### [facility] [address] [address] [address] Rosalio Burks Urea nitrogen/Creatini ne [Mass ratio] 15.6 mg/mg [facility] Comment on above: Performed By: #### C MP, LIPID #### [facility] [address] [address] [address] Rosalio GARZONon 09-08-2022 CNOV Office Visit (NRESFV ) -------- JAK RAMOS ([id number]) 1960 M Date Time Provider Department 09/08/22 8:00 AM TREMAYNE GIBSON NRESFV During your visit today, we recorded the following information about you: Pulse Blood pressure Weight Height 82/minute 146/93 93.6 kg 1.956 m Tremayne Gibson DO 09/08/2022 8:41 AM Signed [facility] - FOLLOW UP EVALUATION Tremayne Gibson [address] includes the [facility] [id number] Jak Ramos is a 62 year old male with a history of PD. He is seen alone. Interval History Since Last Visit: The Sinemet has been helpful. There are no ADRS. He is tolerating it well. He is still working.his close co-worker has not seen any changes in his voice. The tremor in the left hand is worse. Noticeable only when he holds a paper. No falls are noted. 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 There is a strong family history of maternal lineage of peripheral neuropathy. The patient denies any recent illness or infections. The patient denies any hospitalization since the last office visit. The patient denies any changes to their medical history or new diagnoses. The patient denies any surgery/procedure since their last visit. The patient denies any headache, chest pain, palpitations, shortness of breath or abdominal pain. The patient denies any seizures, numbness/tingling, lightheadedness or vertiginous symptoms. The patient denies any recent suicidal ideation or attempts to harm themselves or others. The patient denies any new pain. Parkinson's Medications Schedule: Medications 6A 10A 245P Sinemet 25/100 1 1 1 Previous Parkinson's Medications: None In addition, the following Parkinson-associated features were evaluated: Daily activities Difficulties with eatin (none) Difficulties in dressin (none) Difficulties with hygiene activities: 0 (none) Difficulties with handwritin (none) Difficulties with doing hobbies and other activities: 0 (none) Difficulties turning in bed: 0 (none) Difficulties getting out of bed, car or chair: 0 (none) Tremors/Gait/Balance Shaking or tremors: Yes (slight) Walking and balance problems: Yes (slight) Gait freezin (none) Autonomic/Pain Lightheadeness on standing: Yes (slight) Urinary problems: 0 (none) Constipation problems: Yes (slight) Pain and other sensations: 0 (none) Speech/Swallowing Speech problems: Yes (slight) Drooling: Yes (mild) Chewing and swallowing problems: 0 (none) Sleep/Fatigue Problems sleeping at night: Yes (slight) Daytime sleepiness: Yes (slight) Fatigue: 0 (none) Mood/Behavior/Cognition Depression: PQH-9 = 3 usually representing no significant (0-4) depression. Anxiety: JUAN C-7 = 0 usually representing no significant (0-4) anxiety. Finally, the following table shows the patient's overall global physical and mental health using the PROMIS scale relative to the previous visit: PROMIS-10 Flowsheet Row Office Visit from 09/08/2022 in Neurology OT/PT/Speech Visit from 10/13/2021 in [facility] Physical Therapy Global Physical Health T Score 54.1 44.9 Global Mental Health T Score 53.3 43.5 0-10 Standard Pain Scale 4 4 *PROMIS-10 scoring scale: mean = 50, over 50 is above average, under 50 is below average Allergies: ALLERGIES No Known Allergies Current Medications: Current Outpatient Medications Medication Sig carbidopa-levodopa (SINEMET) 25-100 mg per tablet Take 1 tablet by mouth three times daily. dilTIAZem CR (TIAZAC,TAZTIA XT) 240 mg 24 hr capsule Take 240 mg by mouth once daily. aspirin 325 mg tablet Take 325 mg by mouth once daily. No current facility-administered medications for this visit. Objective: Vital Signs: BP 146/93 Pulse 82 Ht 195.6 cm (6' 5 ) Wt 93.6 kg (206 lb 4.8 oz) SpO2 94% BMI 24.46 kg/m? General Medical Examination: General Description of Patient: Well appearing, comfortable Head:normocephalic, atraumatic Neck:No bruits, full range of movement, supple Cardiac: Regular Rate and Rhythm Extremities: No leg edema, pulses intact, no rash or venous stasis changes. Neurological Exam Mental Status Awake and alert. Oriented to person, place and time. Recent and remote memory are intact. Speech is normal. Language is fluent with no aphasia. Attention and concentration are normal. Fund of knowledge is appropriate for level of education. Cranial Nerves CN II to XII reported as normal . Motor No fasciculations present. Strength is 5/5 throughout all four extremities. No focal weakness appreciated on examination. Sensory There is no evidence for a stocking-glove gradient in bilateral extremities. Dual simultaneous stimulation is intact. Reflexes Right Left Brachioradialis 2+ 2+ Biceps 2+ 2+ Triceps 2+ 2+ P (more content not included)... Normal [facility] XR MODIFIED BARIUM SWALLOWon 11-01-2021 XR MODIFIED BARIUM SWALLOW EXAMINATION: XR MODIFIED BARIUM SWALLOW HISTORY: Pharyngeal dysphagia COMPARISON: No relevant comparison available. TECHNIQUE: A swallowing evaluation was performed with fluoroscopy in the usual manner. Standard level fluoroscopic mode of operation utilized. FINDINGS: ORAL PHASE: Normal deglutition. PHARYNGEAL PHASE: Normal swallowing. ASPIRATION: No aspiration. A few episodes of mild penetration during swallowing thin liquid, and questionable during swallowing of nectar thickened liquid. STRUCTURE: Normal. No visible obstruction, stricture, or dilatation. OTHER: Negative. IMPRESSION: 1. Mild, occasional penetration during swallowing of thin liquid. 2. Please see speech pathologist report for further discussion of findings and recommendations. Electronically authenticated by: MAMIE HOLDER Date: 2021-11-01 09:50 Normal [facility] Ambulatory Clinical Summaryo n 02-10-2021 Ambulatory Clinical Summary {[id number] }CD:[id number] Normal [facility] General Surgery Office/Clini c Noteon 01-11-2021 General Surgery Office/Clinic Note Chief Complaint Post operative visit. HPI Staff 33 Day s/p Right Inguinal Herniorrhaphy completed 12/08/2020. Denies experiencing symptoms of pain, bleeding, or discharge. Not taking anything for pain. Regular BMs and urination. No nausea or vomiting. Eating well. History of Present Illness 5 weeks s/p RIHR with mesh, doing well; denies pain or swelling; back to regular activities; no drainage or problems with incision; Review of Systems ROS - Provider Constitutional: no fever, no sweats, no weight loss. Eyes: no glasses, no blurred vision, no visual loss. ENMT: no dentures, no hoarseness, no swallowing difficulties, no hearing loss, no ear infection(s), no nose bleeds. Cardiovascular: normal blood pressure, no chest pain, regular heartbeat, no heart murmur. Respiratory: no shortness of breath, no cough, no asthma, no wheezing. Gastrointestinal: no nausea, no vomiting, no diarrhea, no constipation, no blood in stool, no change in bowel habits, no abdominal pain, no hepatitis. Genitourinary: no kidney stones, no urine infection, no dysuria. Musculoskeletal: no pain, no weakness. Skin: no changing moles, no rash, no skin lumps. Neurologic: no seizures, no epilepsy, no headache. Psychiatric: no emotional or psychiatric problem. Heme/Lymph: no bleeding problems, no anemia, no blood clots, no transfusions. Allergy/Immunologic: no swollen lymph nodes/glands, no IV drug abuse. Other: Additional ROS info: Except as noted in the above Review of Systems and in the History of Present Illness, all other systems have been reviewed and are negative or noncontributory. Physical Exam Vitals & Measurements T: 36.2 ?C (Tympanic) abd: soft, normal bs, nontender, nondistended; incision without erythema or swelling, no seroma or recurrent hernia Assessment/Plan 1. Right inguinal hernia (K40.90: Unilateral inguinal hernia, without obstruction or gangrene, not specified as recurrent) doing well, call with problems/questions. Follow-up With When Contact Information SNEHA TAFOYA, LAVON Waters Only if needed [address] [place] [address]- Additional Instructions: Patient Education Exercising to Stay Healthy Problem List/Past Medical History Ongoing Benign prostatic hyperplasia with nocturia BMI 20.0-20.9, adult Lumbar spondylosis Pacemaker Paroxysmal atrial fibrillation Pure hypercholesterolemia Right inguinal hernia Symptomatic bradycardia Historical No qualifying data Procedure/Surgical History Inguinal herniorrhaphy (12/08/2020), Cardiac pacemaker (08/06/2008), History of tonsillectomy (08/06/2008). Medications aspirin 325 mg Oral EC Tab, 325 mg= 1 tab(s), Oral, Daily DilTIAZem (Eqv-Cardizem CD), Oral, Daily Allergies No Known Allergies Social History Tobacco Never (less than 100 in lifetime) Tobacco Use:. Never Smokeless Tobacco Use:., 01/11/2021 Family History Diabetes mellitus type II: Father. Heart disease: Father. Immunizations Vaccine Date Status Comments SARS-CoV-2 (COVID-19) mRNA-1273 vaccine - Not Given Postpone due to refusal Normal [facility] Comment on above: Result Comment: Elec tronically Signed By: SNEHA TAFOYA, Tyree Buckley\Date and Time Signed: 01/11/21 13:54 EDT Patient Educationon 01-12-20 Patient Education Preventive Health Exercising to Stay Healthy To become healthy and stay healthy, it is recommended that you do moderate-intensity and vigorous-intensity exercise. You can tell that you are exercising at a moderate intensity if your heart starts beating faster and you start breathing faster but can still hold a conversation. You can tell that you are exercising at a vigorous intensity if you are breathing much harder and faster and cannot hold a conversation while exercising. Exercising regularly is important. It has many health benefits, such as: ? Improving overall fitness, flexibility, and endurance. ? Increasing bone density. ? Helping with weight control. ? Decreasing body fat. ? Increasing muscle strength. ? Reducing stress and tension. ? Improving overall health. How often should I exercise? Choose an activity that you enjoy, and set realistic goals. Your health care provider can help you make an activity plan that works for you. Exercise regularly as told by your health care provider. This may include: ? Doing strength training two times a week, such as: ? Lifting weights. ? Using resistance bands. ? Push-ups. ? Sit-ups. ? Yoga. ? Doing a certain intensity of exercise for a given amount of time. Choose from these options: ? A total of 150 minutes of moderate-intensity exercise every week. ? A total of 75 minutes of vigorous-intensity exercise every week. ? A mix of moderate-intensity and vigorous-intensity exercise every week. Children, women, people who have not exercised regularly, people who are overweight, and older adults may need to talk with a health care provider about what activities are safe to do. If you have a medical condition, be sure to talk with your health care provider before you start a new exercise program. What are some exercise ideas? Moderate-intensity exercise ideas include: ? Walking 1 mile (1.6 km) in about 15 minutes. ? Biking. ? Hiking. ? Golfing. ? Dancing. ? Water aerobics. Vigorous-intensity exercise ideas include: ? Walking 4.5 miles (7.2 km) or more in about 1 hour. ? Jogging or running 5 miles (8 km) in about 1 hour. ? Biking 10 miles (16.1 km) or more in about 1 hour. ? Lap swimming. ? Roller-skating or in-line skating. ? Cross-country skiing. ? Vigorous competitive sports, such as football, basketball, and soccer. ? Jumping rope. ? Aerobic dancing. What are some everyday activities that can help me to get exercise? ? Yard work, such as: ? Pushing a freight breaker. ? Raking and bagging leaves. ? Washing your car. ? Pushing a stroller. ? Shoveling snow. ? Gardening. ? Washing windows or floors. How can I be more active in my day-to-day activities? ? Use stairs instead of an elevator. ? Take a walk during your lunch break. ? If you drive, park your car farther away from your work or school. ? If you take public transportation, get off one stop early and walk the rest of the way. ? Stand up or walk around during all of your indoor phone calls. ? Get up, stretch, and walk around every 30 minutes throughout the day. ? Enjoy exercise with a friend. Support to continue exercising will help you keep a regular routine of activity. What guidelines can I follow while exercising? ? Before you start a new exercise program, talk with your health care provider. ? Do not exercise so much that you hurt yourself, feel dizzy, or get very short of breath. ? Wear comfortable clothes and wear shoes with good support. ? Drink plenty of water while you exercise to prevent dehydration or heat stroke. ? Work out until your breathing and your heartbeat get faster. Where to find more information ? [place] Department of Health and Human Services: www.hhs.gov ? Centers for Disease Control and Prevention (CDC): www.cdc.gov Summary ? Exercising regularly is important. It will improve your overall fitness, flexibility, and endurance. ? Regular exercise also will improve your overall health. It can help you control your weight, reduce stress, and improve your bone density. ? Do not exercise so much that you hurt yourself, feel dizzy, or get very short of breath. ? Before you start a new exercise program, talk with your health care provider. This information is not intended to replace advice given to you by your health care provider. Make sure you discuss any questions you have with your health care provider. Document Released: 08/25/2011 Document Revised: 07/05/2018 Document Reviewed: 06/13/2018 [employer] Patient Education ? 2019 [employer]. Normal [facility] Ambulatory Clinical Summaryo n 12-30-2020 Ambulatory Clinical Summary {[id number] }CD:[id number] Normal [facility] General Surgery Office/Clini c Noteon 12-30-2020 General Surgery Office/Clinic Note Chief Complaint post operative visit HPI Staff 21 Day s/p Right Inguinal Herniorrhaphy completed 12/08/2020. Denies symptoms of pain, bleeding, or drainage. Not taking any pain medications. BMs and Urinating well with no changes. History of Present Illness 3 weeks s/p RIHR with mesh insertion; doing well, mild hyperesthesia to skin below repair, no drainage, no swelling; not taking anything for pain. no strenuous activities. Review of Systems ROS - Provider Constitutional: no fever, no sweats, no weight loss. Eyes: no glasses, no blurred vision, no visual loss. ENMT: no dentures, no hoarseness, no swallowing difficulties, no hearing loss, no ear infection(s), no nose bleeds. Cardiovascular: normal blood pressure, no chest pain, regular heartbeat, no heart murmur. Respiratory: no shortness of breath, no cough, no asthma, no wheezing. Gastrointestinal: no nausea, no vomiting, no diarrhea, no constipation, no blood in stool, no change in bowel habits, no abdominal pain, no hepatitis. Genitourinary: no kidney stones, no urine infection, no dysuria. Musculoskeletal: no pain, no weakness. Skin: no changing moles, no rash, no skin lumps. Neurologic: no seizures, no epilepsy, no headache. Psychiatric: no emotional or psychiatric problem. Heme/Lymph: no bleeding problems, no anemia, no blood clots, no transfusions. Allergy/Immunologic: no swollen lymph nodes/glands, no IV drug abuse. Other: Additional ROS info: Except as noted in the above Review of Systems and in the History of Present Illness, all other systems have been reviewed and are negative or noncontributory. Physical Exam Vitals & Measurements T: 35.3 ?C (Tympanic) abd: soft, normal bs, nontender, nondistended; incision healing well, no erythema or fluctuance, no seroma. Assessment/Plan 1. Right inguinal hernia (K40.90: Unilateral inguinal hernia, without obstruction or gangrene, not specified as recurrent) doing well; in one week, gradually resume regular activities; follow up in 2 weeks, call sooner if problems/questions. Follow-up No qualifying data available Problem List/Past Medical History Ongoing Benign prostatic hyperplasia with nocturia Lumbar spondylosis Pacemaker Paroxysmal atrial fibrillation Pure hypercholesterolemia Right inguinal hernia Symptomatic bradycardia Historical No qualifying data Procedure/Surgical History Inguinal herniorrhaphy (12/08/2020), Cardiac pacemaker (08/06/2008), History of tonsillectomy (08/06/2008). Medications aspirin 325 mg Oral EC Tab, 325 mg= 1 tab(s), Oral, Daily DilTIAZem (Eqv-Cardizem CD), Oral, Daily Allergies No Known Allergies Social History Tobacco Never (less than 100 in lifetime) Tobacco Use:. Never Smokeless Tobacco Use:., 12/30/2020 Family History Diabetes mellitus type II: Father. Heart disease: Father. Immunizations Vaccine Date Status Comments SARS-CoV-2 (COVID-19) mRNA-1273 vaccine - Not Given Postpone due to refusal Normal [facility] Comment on above: Result Comment: Elec tronically Signed By: SNEHA TAFOYA, Tyree Olsen.jonny\Date and Time Signed: 12/30/20 09:58 EDT Ambulatory Clinical Summaryo n 12-15-2020 Ambulatory Clinical Summary {[id number] }[id number] Normal [facility] General Surgery Office/Clini c Noteon 12-15-2020 General Surgery Office/Clinic Note Chief Complaint post operative visit. HPI Staff 6 day post operative visit following Right Inguinal Herniorrhaphy completed 12/08/2020. C/o mild soreness with clothing rubbing. No pain, bleeding, or drainage. Taking no current pain medications. History of Present Illness 1 week s/p RIHR with mesh patch for direct inguinal hernia; doing well, mild soreness, not taking any pain medications; normal bms, no N/V; no drainage form incision. Review of Systems ROS - Provider Constitutional: no fever, no sweats, no weight loss. Eyes: no glasses, no blurred vision, no visual loss. ENMT: no dentures, no hoarseness, no swallowing difficulties, no hearing loss, no ear infection(s), no nose bleeds. Cardiovascular: normal blood pressure, no chest pain, regular heartbeat, no heart murmur. Respiratory: no shortness of breath, no cough, no asthma, no wheezing. Gastrointestinal: no nausea, no vomiting, no diarrhea, no constipation, no blood in stool, no change in bowel habits, mild abdominal pain, no hepatitis. Genitourinary: no kidney stones, no urine infection, no dysuria. Musculoskeletal: no pain, no weakness. Skin: no changing moles, no rash, no skin lumps. Neurologic: no seizures, no epilepsy, no headache. Psychiatric: no emotional or psychiatric problem. Heme/Lymph: no bleeding problems, no anemia, no blood clots, no transfusions. Allergy/Immunologic: no swollen lymph nodes/glands, no IV drug abuse. Other: Additional ROS info: Except as noted in the above Review of Systems and in the History of Present Illness, all other systems have been reviewed and are negative or noncontributory. Physical Exam Vitals & Measurements T: 36.0 ?C (Tympanic) abd: soft, nontender, nondistended, minimal induration, incision without erythema or drainage, no ecchymosis. Assessment/Plan 1. Right inguinal hernia (K40.90: Unilateral inguinal hernia, without obstruction or gangrene, not specified as recurrent) doing well, continue no lifting > 10 lbs for 3 weeks, follow up in 2 weeks, call sooner if problems/questions. Follow-up No qualifying data available Problem List/Past Medical History Ongoing Benign prostatic hyperplasia with nocturia Lumbar spondylosis Pacemaker Paroxysmal atrial fibrillation Pure hypercholesterolemia Right inguinal hernia Symptomatic bradycardia Historical No qualifying data Procedure/Surgical History Inguinal herniorrhaphy (12/08/2020), Cardiac pacemaker (08/06/2008), History of tonsillectomy (08/06/2008). Medications aspirin 325 mg Oral EC Tab, 325 mg= 1 tab(s), Oral, Daily DilTIAZem (Eqv-Cardizem CD), Oral, Daily Allergies No Known Allergies Social History Tobacco Never (less than 100 in lifetime) Tobacco Use:. Never Smokeless Tobacco Use:., 12/15/2020 Family History Diabetes mellitus type II: Father. Heart disease: Father. Immunizations Vaccine Date Status Comments SARS-CoV-2 (COVID-19) mRNA-1273 vaccine - Not Given Postpone due to refusal [place] Comment on above: Result Comment: Elec tronically Signed By: SNEHA TAFOYA, Tyree Buckley\Date and Time Signed: 12/15/20 16:50 EDT Pathology Noteon 12-14-2020 Pathology Note [id number]: 127 [place] Operative Reporton Operative Report [id number]: 127 [place] Lab Reportson 12-06-2020 Lab Reports [id number]: 127 [place] Consent for Procedure/Surger yon 11-29-2020 Consent for Procedure/Surgery [id number]:1 27 Normal [facility] Ambulatory Clinical Summaryo n 11-26-2020 Ambulatory Clinical Summary {[id number] }[id number] Normal [facility] Patient Educationon 11-27-19 Patient Education Preventive Health Exercising to Stay Healthy To become healthy and stay healthy, it is recommended that you do moderate-intensity and vigorous-intensity exercise. You can tell that you are exercising at a moderate intensity if your heart starts beating faster and you start breathing faster but can still hold a conversation. You can tell that you are exercising at a vigorous intensity if you are breathing much harder and faster and cannot hold a conversation while exercising. Exercising regularly is important. It has many health benefits, such as: ? Improving overall fitness, flexibility, and endurance. ? Increasing bone density. ? Helping with weight control. ? Decreasing body fat. ? Increasing muscle strength. ? Reducing stress and tension. ? Improving overall health. How often should I exercise? Choose an activity that you enjoy, and set realistic goals. Your health care provider can help you make an activity plan that works for you. Exercise regularly as told by your health care provider. This may include: ? Doing strength training two times a week, such as: ? Lifting weights. ? Using resistance bands. ? Push-ups. ? Sit-ups. ? Yoga. ? Doing a certain intensity of exercise for a given amount of time. Choose from these options: ? A total of 150 minutes of moderate-intensity exercise every week. ? A total of 75 minutes of vigorous-intensity exercise every week. ? A mix of moderate-intensity and vigorous-intensity exercise every week. Children, women, people who have not exercised regularly, people who are overweight, and older adults may need to talk with a health care provider about what activities are safe to do. If you have a medical condition, be sure to talk with your health care provider before you start a new exercise program. What are some exercise ideas? Moderate-intensity exercise ideas include: ? Walking 1 mile (1.6 km) in about 15 minutes. ? Biking. ? Hiking. ? Golfing. ? Dancing. ? Water aerobics. Vigorous-intensity exercise ideas include: ? Walking 4.5 miles (7.2 km) or more in about 1 hour. ? Jogging or running 5 miles (8 km) in about 1 hour. ? Biking 10 miles (16.1 km) or more in about 1 hour. ? Lap swimming. ? Roller-skating or in-line skating. ? Cross-country skiing. ? Vigorous competitive sports, such as football, basketball, and soccer. ? Jumping rope. ? Aerobic dancing. What are some everyday activities that can help me to get exercise? ? Yard work, such as: ? Pushing a freight breaker. ? Raking and bagging leaves. ? Washing your car. ? Pushing a stroller. ? Shoveling snow. ? Gardening. ? Washing windows or floors. How can I be more active in my day-to-day activities? ? Use stairs instead of an elevator. ? Take a walk during your lunch break. ? If you drive, park your car farther away from your work or school. ? If you take public transportation, get off one stop early and walk the rest of the way. ? Stand up or walk around during all of your indoor phone calls. ? Get up, stretch, and walk around every 30 minutes throughout the day. ? Enjoy exercise with a friend. Support to continue exercising will help you keep a regular routine of activity. What guidelines can I follow while exercising? ? Before you start a new exercise program, talk with your health care provider. ? Do not exercise so much that you hurt yourself, feel dizzy, or get very short of breath. ? Wear comfortable clothes and wear shoes with good support. ? Drink plenty of water while you exercise to prevent dehydration or heat stroke. ? Work out until your breathing and your heartbeat get faster. Where to find more information ? [place] Department of Health and Human Services: www.hhs.gov ? Centers for Disease Control and Prevention (CDC): www.cdc.gov Summary ? Exercising regularly is important. It will improve your overall fitness, flexibility, and endurance. ? Regular exercise also will improve your overall health. It can help you control your weight, reduce stress, and improve your bone density. ? Do not exercise so much that you hurt yourself, feel dizzy, or get very short of breath. ? Before you start a new exercise program, talk with your health care provider. This information is not intended to replace advice given to you by your health care provider. Make sure you discuss any questions you have with your health care provider. Document Released: 08/25/2011 Document Revised: 07/05/2018 Document Reviewed: 06/13/2018 Elsevier Patient Education ? 2019 [employer] Normal [facility] Physician Referralon 021 Physician Referral [id number]: 127 [place] Vital Signs Date Time Vital Sign Value Performing Clinician Facility 08-16-2023 10:15-0500 Body height 190.5 cm Taras Pickett Other [facility] Other 08-16-2023 10:15-0500 Body mass index (BMI) [Ratio] 22.3 kg/m2 [email or web address] Other [facility] Other 08-16-2023 10:15-0500 Body weight 80.92 kg [email or web address] Other [facility] Other 08-16-2023 10:15-0500 Diastolic blood pressure 70 mm[Hg] [email or web address] Other [facility] Other 08-16-2023 10:15-0500 Respiratory rate 12 /min [email or web address] Other [facility] Other 08-16-2023 10:15-0500 Systolic blood pressure 109 mm[Hg] [email or web address] Other [facility] Other 05-10-2023 10:46-0400 Diastolic blood pressure 87 mm[Hg] Tremayne Gibson DO Work Phone: [facility] 05-10-2023 10:46-0400 Heart rate 85 /min Tremayne Gibson DO Work Phone: [facility] 05-10-2023 10:46-0400 Systolic blood pressure 125 mm[Hg] Tremayne Gibson DO Work Phone: [facility] 03-13-2023 13:30-0400 Body height 190.5 cm Taras Ball Other [facility] Other 03-13-2023 13:30-0400 Body mass index (BMI) [Ratio] 24.42 kg/m2 Taras Ball Other [facility] Other 03-13-2023 13:30-0400 Body weight 88.63 kg Taras Ball Other [facility] Other 03-13-2023 13:30-0400 Diastolic blood pressure 78 mm[Hg] Taras Ball Other [facility] Other 03-13-2023 13:30-0400 Respiratory rate 12 /min Taras Ball Other [facility] Other 03-13-2023 13:30-0400 Systolic blood pressure 111 mm[Hg] Taras Ball Other [facility] Other 10-03-2022 14:00-0500 Body height 190.5 cm Taras Ball Other [facility] Other 10-03-2022 14:00-0500 Body mass index (BMI) [Ratio] 25.32 kg/m2 Taras Ball Other [facility] Other 10-03-2022 14:00-0500 Body weight 91.9 kg Taras Ball Other [facility] Other 10-03-2022 14:00-0500 Diastolic blood pressure 82 mm[Hg] Taras Ball Other [facility] Other 10-03-2022 14:00-0500 Respiratory rate 12 /min Taras Ball Other [facility] Other 10-03-2022 14:00-0500 Systolic blood pressure 118 mm[Hg] Taras Ball Other [facility] Other 09-19-2022 12:40-0500 Body height 190.5 cm Tabby Lindo Other [facility] Other 09-19-2022 12:40-0500 Body mass index (BMI) [Ratio] 26.25 kg/m2 Tabby Lindo Other [facility] Other 09-19-2022 12:40-0500 Body temperature 98.2 [degF] Tabby Lindo Other [facility] Other 09-19-2022 12:40-0500 Body weight 95.26 kg Tabby Lindo Other [facility] Other 09-19-2022 12:40-0500 Respiratory rate 18 /min Tabby Lindo Other [facility] Other 09-19-2022 12:40-0500 SaO2% (BldA) [Mass fraction] 96 % Tabby Lindo Other [facility] Other 09-08-2022 07:53-0500 Body height 195.6 cm Tremayne Gibson DO Work Phone: [facility] 09-08-2022 07:53-0500 Body weight 93.58 kg Tremayne Gibson DO Work Phone: [facility] 09-08-2022 07:53-0500 Diastolic blood pressure 93 mm[Hg] Tremayne Gostkowski DO Work Phone: [facility] 09-08-2022 07:53-0500 Heart rate 82 /min Tremayne Gostkowski DO Work Phone: [facility] 09-08-2022 07:53-0500 SaO2% (BldA) [Mass fraction] 94 % Tremayne Gostkowski DO Work Phone: [facility] 09-08-2022 07:53-0500 Systolic blood pressure 146 mm[Hg] Tremayne Gostkowski DO Work Phone: [facility] 12-29-2021 13:46-0400 Diastolic blood pressure 82 mm[Hg] Tremayne Gostkowski DO Work Phone: [facility] 12-29-2021 13:46-0400 Heart rate 99 /min Tremayne Gostkowski DO Work Phone: [facility] 12-29-2021 13:46-0400 Systolic blood pressure 114 mm[Hg] Tremayne Gostkowski DO Work Phone: [facility] 11-10-2021 08:00-0400 Diastolic blood pressure 89 mm[Hg] Hero Salinason PT Work Phone: [facility] 11-10-2021 08:00-0400 Heart rate 83 /min Hero Wayne PT Work Phone: [facility] 11-10-2021 08:00-0400 Systolic blood pressure 134 mm[Hg] Hero Wayne PT Work Phone: [facility] Encounters Encounter Date Encounter Type Care Provider Facility Start: 08-16-2023 End: 08-16-2023 ambulatory Taras Pickett Other [facility] Other Start: 08-16-2023 Office outpatient vi sit 15 minutes Taras Pickett [facility] Start: 08-10-2023 End: 08-10-2023 ambulatory Taras Pickett Other [facility] Other Start: 08-10-2023 Office outpatient vi sit 15 minutes Taras Pickett [facility] Start: 05-10-2023 End: 05-10-2023 ambulatory TREMAYNE GIBSON Facility:[facility] Start: 05-10-2023 End: 05-10-2023 Office outpatient visit 15 minutes Tremayne Gibson DO Work Phone: Neurology Comment on above: PD (Parkinson's dise ase) Start: 04-06-2023 Telephone encounter Tremayne fox DO Work Phone: Neurology Comment on above: Forms Start: 04-03-2023 End: 04-03-2023 ambulatory [facility] Start: 03-13-2023 End: 03-13-2023 ambulatory Taras Pickett Other [facility] Other Start: 03-13-2023 Office outpatient vi sit 25 minutes Taras Pickett [facility] Start: 01-15-2023 End: 01-15-2023 ambulatory MECCA AWAN Facility:[facility] Start: 11-22-2022 ambulatory Tremayne florentino DO Work Phone: Neurology Comment on above: neuropathy analysis Start: 10-09-2022 End: 10-09-2022 ambulatory Taras Pickett Other [facility] Other Start: 10-09-2022 Telephone encounter Taras Pcikett [facility] Start: 10-08-2022 Encounter for genera l adult medical examination without abnormal findings DR TARAS PICKETT [facility] Start: 10-03-2022 End: 10-04-[address] TARAS PICKETT Facility:[facility] Start: 10-03-2022 End: 10-04-2022 Encounter for general adult medical examination without abnormal findings DR TARAS PICKETT Facility:[facility] Start: 10-03-2022 Periodic preventive med est patient 40-64yrs Taras Pickett [facility] Start: 10-03-2022 End: 10-03-2022 ambulatory [facility] Start: 09-20-2022 End: 09-20-2022 ambulatory [facility] Start: 09-19-2022 End: 09-19-2022 ambulatory Tabby Lindo Other [facility] Other Start: 09-19-2022 Office outpatient ne w 30 minutes Tabby Lindo [facility] Start: 09-08-2022 End: 09-08-2022 ambulatory TREMAYNE GIBSON Facility:[facility] Start: 09-08-2022 End: 09-08-2022 Office outpatient visit 15 minutes Tremayne Gibson DO Work Phone: Neurology Comment on above: PD (Parkinson's dise ase) (HCC) (Primary Dx); Neuropathy, peripheral, hereditary Start: 12-29-2021 End: 12-29-2021 Patient encounter procedure Tremayne Gibson DO Work Phone: Neurology Comment on above: PD (Parkinson's dise ase) (HCC) (Primary Dx) Start: 12-01-2021 End: 12-01-2021 ambulatory Janice Leon CCC-TERRITORY SERVICE REPRESENTATIVE [facility] Comment on above: Hypokinetic Parkinso nian dysphonia (HCC) (Primary Dx); 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); Pharyngeal dysphagia; PD (Parkinson's disease) (HCC) Start: 11-14-2021 ambulatory Tremayne florentino DO Work Phone: Neurology Comment on above: Insulator Technician respons e Start: 11-10-2021 End: 11-10-2021 ambulatory Hero Cuellar PT Work Phone: [facility] Comment on above: Abnormality of gait (Primary Dx); PD (Parkinson's disease) (HCC) Hypokinetic Parkinso nian dysphonia (HCC) (Primary Dx); 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); Pharyngeal dysphagia; PD (Parkinson's disease) (HCC) Start: 11-07-2021 Telephone encounter Tremayne fox DO Work Phone: Neurological [facility] Comment on above: Results (MBS) Start: 11-03-2021 End: 11-03-2021 ambulatory Janice Leon CCC-TERRITORY SERVICE REPRESENTATIVE [facility] Comment on above: Hypokinetic Parkinso nian dysphonia (HCC) (Primary Dx); 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 Rosalio Burks Start: 10-03-2022 Follow-up visit Follow-up EYAL BLUE Start: 12-26-2021 Adult depression screening assessment Tremayne Gibson DO Work Phone: Depression screening Byron Pickett Other Screening for malign ant neoplasm of prostate Taras Pickett Other Plan of Treatment Date Care Activity Detail Author Start: 10-03-2027 PROSTATE CANCER SCRE ENING DISCUSSION PROSTATE CANCER SCREENING DISCUSSION [facility] Start: 01-13-2026 PROSTATE CANCER SCRE ENING DISCUSSION PROSTATE CANCER SCREENING DISCUSSION [facility] Start: 04-06-2023 Influenza vaccination [facility] Start: 12-26-2022 Adult depression scr eening assessment DEPRESSION SCREENING [facility] Start: 08-06-2022 [facility] Start: 04-06-2022 Influenza vaccination C [facility] Start: 08-06-2021 DEPRESSION ASSESSMENT DEPRESSION ASS ESSMENT [facility] Start: 04-06-2021 Influenza vaccination INFLUENZA (#1) [facility] Start: 2014 PROSTATE CANCER SCRE ENING DISCUSSION PROSTATE CANCER SCREENING DISCUSSION [facility] Start: 2009 SHINGRIX VACCINE (1 of 2) SHINGRIX V ACCINE (1 of 2) [facility] Start: 2004 COLOGUARD (FIT-DNA) COLOGUARD (FIT-D NA) [facility] Start: 2004 Colonoscopy COLONOSCOPY [facility] Start: 2004 COLORECTAL CANCER SCREENING COLORECTAL CANCER SCREENING [facility] Start: [address] COLONOGRAPHY [facility] Start: 2004 [facility] Start: 2004 Diabetes Screening Diabetes Screenin g [facility] Start: 2004 FECAL OCCULT BLOOD FECAL OCCULT BLOO D [facility] Start: 2004 SIGMOIDOSCOPY SIGMOIDOSCOPY [facility] Start: 1994 Lipid 1996 panel - S andriy or Plasma Lipid Screening [facility] Start: 1994 LIPID SCREEN LIPID SCREEN [facility] Start: 1978 Urine microalbumin profile [facility] Start: 1977 HEPATITIS C SCREENING HEPATITIS C SC REENING [facility] Start: 1977 HIV SCREENING HIV SCREENING [facility] Start: 1971 Adult depression scr [facility] assessment DEPRESSION SCREENING [facility] Start: 1964 COVID-19 VACCINE (#1) COVID-19 VACCI NE (#1) [facility] Start: 1964 COVID-19 VACCINE (1) COVID-19 VACCIN E (1) [facility] Start: 1959 COVID-19 VACCINE (#1) COVID-19 VACCI NE (#1) [facility] Payers Date Payer Category Payer Unknown [employer] PPO [id number] 2018-Present [phone] [address] [place] [address] PPO [id number] 2018 Unknown [id number] 1959 Unknown [id number] 1959 Unknown [id number] 1959 Unknown [id number] 1959 Unknown [id number] Unknown [id number] Social History Date Type Detail Facility Tobacco smoking stat [facility] Tobacco smoking consumption unknown [facility] Start: 1960 Sex Assigned At Not on file [facility] Start: 09-06-2021 End: 04-04-2022 Exposure to SARS-CoV-2 (event) Not sure [facility] Start: 09-08-2022 Tobacco smoking stat [facility] Never smoked tobacco [facility] Start: 09-08-2022 Tobacco use and exposure Smoke less tobacco non-user [facility] Start: 09-08-2022 End: 01-15-2023 Sex Assigned At [facility] Start: 09-08-2022 End: 01-15-2023 History of Social function [facility] Adult Depression Screening Assessment 0 [facility] Start: 10-01-2021 Sexual orientation Choose not to dis close [facility] Clinical Notes 08-06-2008 to 08-16-2023 Note Date & Type Note Facility 08-16-2023 Evaluation note Encounter Date Diagnosis Assessment Notes Aug, Acute bronchitis due to other specified organisms (ICD-10 - J20.8) Instructed to use Robitussin or Mucinex for cough, saline or Flonase NS for congestion, Tylenol for pain and fever. Instructed to use Robitussin or Mucinex for cough, saline or Flonase NS for congestion, Tylenol for pain and fever. Suggested continuing antibiotics to protect from re-exacerbatio n Call Sunday for update Aug, Recent weight loss (ICD-10 - R63.4) States he has lost his appetite. Stressed importance of increasing calories and protein. Suggested consuming 5-6 smaller, more frequent meals. Aug, Parkinsons disease (ICD-10 - G20) Weakens his ability to clear secretions [facility] Other 01-05-2024 Evaluation note* Encounter Date Diagnosis Assessment Notes Treatment Notes Treatment Clinical Notes Aug, Acute non-recurrent maxillary sinusitis (ICD-10 - J01.00) Instructed to use Robitussin or Mucinex for cough, saline or Flonase NS for congestion, Tylenol for pain and fever. Afrin for next 2 nights at bedtime Aug, Paroxysmal atrial fibrillation (ICD-10 - I48.0) CHADS VASC=0 Avoid systemic decongestants. INcreases risk for more prolonged, serious infection Aug, Acute cough (ICD-10 - R05.1) Push fluids, may require elevation of HOB. Jose Perles since nonproductive [facility] Other 10-05-2023 NoteHNO ID: [id number] Author: Tremayne Gibson, DO Service: ? Author Type: Physician Type: Progress Notes Filed: 05/10/2023 11:32 AM Note Text: [facility] - FOLLOW UP EVALUATION Tremayne Gibson [id number] includes the [facility] [id number] Jak Ramos is a 63 year old male with a history of PD. He is seen alone. Interval History Since Last Visit: Went to PD support group meeting. He is continuing to exercise. BPs have been a little high - following with cardiology for pacemaker. More flatulence. Meds are working well. Sinemet is very helpful. Planned for MOHS in next week. No falls are reported. Workup for peripheral neuropathy was negative. Still goes ot PT. Parkinson's Medications Schedule: Medications 6A 10A 245P Sinemet 25/100 1 1 1 The patient denies any recent illness or infections. The patient denies any hospitalization since the last office visit. The patient denies any changes to their medical history or new diagnoses. The patient denies any surgery/procedure since their last visit. The patient denies any headache, chest pain, palpitations, shortness of breath or abdominal pain. The patient denies any seizures, numbness/tingling, lightheadedness or vertiginous symptoms. The patient denies any recent suicidal ideation or attempts to harm themselves or others. The patient denies any new pain Previous Parkinson's Medications: None In addition, the following Parkinson-associated features were evaluated: Daily activities Difficulties with eatin (none) Difficulties in dressing: Yes (slight) Difficulties with hygiene activities: 0 (none) Difficulties with handwritin (none) Difficulties with doing hobbies and other activities: 0 (none) Difficulties turning in bed: 0 (none) Difficulties getting out of bed, car or chair: No Tremors/Gait/Balance Shaking or tremors: Yes (slight) Walking and balance problems: Yes (slight) Gait freezin (none) Autonomic/Pain Lightheadeness on standing: Yes (slight) Urinary problems: 0 (none) Constipation problems: Yes (slight) Pain and other sensations: 0 (none) Speech/Swallowing Speech problems: 0 (none) Droolin (none) Chewing and swallowing problems: 0 (none) Sleep/Fatigue Problems sleeping at night: Yes (slight) Daytime sleepiness: Yes (slight) Fatigue: 0 (none) REM sleep behavior disorder: No Mood/Behavior/Cognition Cognitive impairment: No Hallucinations and delusions: No Apathy: No Depression: PQH-9 = 1 usually representing no significant (0-4) depression. Anxiety: JUAN C-7 = 0 usually representing no significant (0-4) anxiety. Finally, the following table shows the patient's overall global physical and mental health using the PROMIS scale relative to the previous visit: PROMIS-10 Flowsheet Row Office Visit from 05/10/2023 in Neurology Appointment from 03/08/2023 in Neurology Global Physical Health T Score 57.7 57.7 Global Mental Health T Score 62.5 62.5 0-10 Standard Pain Scale 5 5 *PROMIS-10 scoring scale: mean = 50, over 50 is above average, under 50 is below average Allergies: ALLERGIES No Known Allergies Current Medications: Current Outpatient Medications Medication Sig carbidopa-levodopa (SINEMET) 25-100 mg per tablet Take 1 tablet by mouth three times daily. dilTIAZem CR (TIAZAC,TAZTIA XT) 240 mg 24 hr capsule Take 240 mg by mouth once daily. aspirin 325 mg tablet Take 325 mg by mouth once daily. No current facility-administered medications for this visit. Objective: Vital Signs: BP 125/87 (BP Site: Left Arm, BP Position: Sitting, BP Cuff Size: Regular Adult) Pulse 85 General Medical Examination: General Description of Patient: Well appearing, comfortable Head:normocephalic, atraumatic Neck:No bruits, full range of movement, supple Cardiac: Regular rate and rhythm, no murmur Extremities: No leg edema, pulses intact, no rash or venous stasis changes. Neurological Exam Mental Status Awake and alert. Recent and remote memory are intact. Speech is normal. Language is fluent with no aphasia. Attention and concentration are normal. Fund of knowledge is appropriate for level of education. Cranial Nerves CN II to XII reported as normal . Motor No fasciculations present. Strength is 5/5 throughout all four extremities. No focal weakness appreciated on examination. Sensory There is no evidence for a stocking-glove gradient in bilateral extremities. Dual simultaneous stimulation is intact. Reflexes Right Left Brachioradialis 2+ 2+ Biceps 2+ 2+ Triceps 2+ 2+ Patellar 2+ 2+ Right pathological reflexes: Rashel's absent. Left pathological reflexes: Rashel's absent. Coordination Right: Fnfrcj-dq-rewp normal. Rapid alternating movement normal.Left: Dldxjn-ly-mbtu normal. Rapid alternating movement normal. Gait Casual gait: Normal stance. Reduced stride length. Normal gait. Normal right arm swing. Normal (more content not included)...[facility] 05-10-2023 NoteHNO ID: [id number] Author: Abhishek Cotto LPN Service: ? Author Type: LICENSED NURSE Type: Progress Notes Filed: 05/10/2023 11:32 AM Note Text: 05/09/2023 PROMIS Global Health Physical Health Summary Physical health: Very good Everyday physical activity, ability: Completely Fatigue: Mild Pain level: 0 No Pain General health: Very good Social activities/roles, ability: Very good Physical Health T-Score 57.7 (Very Good) Physical Health Percentile 78 PROMIS Global Health Mental Health Summary Quality of life: Very good Mental health (mood,thinking): Excellent Social satisfaction: Excellent Emotional problems (anxious,depressed): Never Mental Health T-Score 62.5 (Excellent) Mental Health Percentile 89 PHQ-9 Score: 1(Minimal Depression) PHQ-9 Self-Harm: Not at all PROMIS PHYSICAL FUNCTION SCORE 11/08/2021 10/11/2021 Promis Physical Function Percentile 38 58 Percentiles provide an indication of how a patient's score ranks in relation to the [place] general population. > 31st percentile is within normal limits or better *< 31st percentile is at least ? SD worse than population, which may be clinically relevant < 16th percentile is at least 1 SD worse than population and warrants attention Sleep Apnea Probability Snores loudly: Tired, fatigued or sleepy in daytime: Stops breathing or choking/gasping during sleep: High blood pressure: Sleep Apnea Probability Score: (Sleep study not recommended)[facility]10-05-2023 History of Present illness Narrative* Tremayne Gibson, - 05/10/2023 11:20 AM EDT [facility] - FOLLOW UP EVALUATION Tremayne Gibson [address] [facility] [address] Jak Ramos is a 63 year old male with a history of PD. He is seen alone. Interval History Since Last Visit: Went to PD support group meeting. He is continuing to exercise. BPs have been a little high - following with cardiology for pacemaker. More flatulence. Meds are working well. Sinemet is very helpful.Planned for MOHS in next week. No falls are reported. Workup for peripheral neuropathy was negative. Still goes ot PT. Parkinson's Medications Schedule: Medications 6A 10A 245P Sinemet 25/100 1 1 1 The patient denies any recent illness or infections. The patient denies any hospitalization since the last office visit. The patient denies any changes to their medical history or new diagnoses. The patient denies any surgery/procedure since their last visit. The patient denies any headache, chest pain, palpitations, shortness of breath or abdominal pain. The patient denies any seizures, numbness/tingling, lightheadedness or vertiginous symptoms. The patient denies any recent suicidal ideation or attempts to harm themselves or others. The patient denies any new pain Previous Parkinson's Medications: None In addition, the following Parkinson-associated features were evaluated: Daily activities Difficulties with eatin (none) Difficulties in dressing: Yes (slight) Difficulties with hygiene activities: 0 (none) Difficulties with handwritin (none) Difficulties with doing hobbies and other activities: 0 (none) Difficulties turning in bed: 0 (none) Difficulties getting out of bed, car or chair: No Tremors/Gait/Balance Shaking or tremors: Yes (slight) Walking and balance problems: Yes (slight) Gait freezin (none) Autonomic/Pain Lightheadeness on standing: Yes (slight) Urinary problems: 0 (none) Constipation problems: Yes (slight) Pain and other sensations: 0 (none) Speech/Swallowing Speech problems: 0 (none) Droolin (none) Chewing and swallowing problems: 0 (none) Sleep/Fatigue Problems sleeping at night: Yes (slight) Daytime sleepiness: Yes (slight) Fatigue: 0 (none) REM sleep behavior disorder: No Mood/Behavior/Cognition Cognitive impairment: No Hallucinations and delusions: No Apathy: No Depression: PQH-9 = 1 usually representing no significant (0-4) depression. Anxiety: JUAN C-7 = 0 usually representing no significant (0-4) anxiety. Finally, the following table shows the patient's overall global physical and mental health using the PROMIS scale relative to the previous visit: PROMIS-10 Flowsheet Row Office Visit from 05/10/2023 in Neurology Appointment from 03/08/2023 in Neurology Global Physical Health T Score 57.7 57.7 Global Mental Health T Score 62.5 62.5 0-10 Standard Pain Scale 5 5 *PROMIS-10 scoring scale: mean = 50, over 50 is above average, under 50 is below average Allergies: ALLERGIES No Known Allergies Current Medications: Current Outpatient Medications Medication Sig carbidopa-levodopa (SINEMET) 25-100 mg per tablet Take 1 tablet by mouth three times daily. dilTIAZem CR (TIAZAC,TAZTIA XT) 240 mg 24 hr capsule Take 240 mg by mouth once daily. aspirin 325 mg tablet Take 325 mg by mouth once daily. No current facility-administered medications for this visit. Objective: Vital Signs: BP 125/87 (BP Site: Left Arm, BP Position: Sitting, BP Cuff Size: Regular Adult) Pulse 85 General Medical Examination: General Description of Patient: Well appearing, comfortable Head:normocephalic, atraumatic Neck:No bruits, full range of movement, supple Cardiac: Regular rate and rhythm, no murmur Extremities: No leg edema, pulses intact, no rash or venous stasis changes. Neurological Exam Mental Status Awake and alert. Recent and remote memory are intact. Speech is normal. Language is fluent with no aphasia. Attention and concentration are normal. Fund of knowledge is appropriate for level of education. Cranial Nerves CN II to XII reported as normal . Motor No fasciculations present. Strength is 5/5 throughout all four extremities. No focal weakness appreciated on examination. Sensory There is no evidence for a stocking-glove gradient in bilateral extremities. Dual simultaneous stimulation is intact. Reflexes Right Left Brachioradialis 2+ 2+ Biceps 2+ 2+ Triceps 2+ 2+ Patellar 2+ 2+ Right pathological reflexes: Rashel's absent. Left pathological reflexes: Rashel's absent. Coordination Right: Srvlcy-wl-jnlh normal. Rapid alternating movement normal.Left: Wetifn-nu-haqc normal. Rapid alternating movement normal. Gait Casual gait: Normal stance. Reduced stride length. Normal gait. Normal right arm swing. Normal leftarm swing. Normal pull test. Able to rise from chair without using arms. The patient did not require assistive devices to ambulate. Parkinson's Scales Performed: MDS-UPDRS Motor subscale condition of exam Medication Off/On/Naiive ON Time of UPDRS 1130 Time of Last Medication 0830 Last Medication Taken Sinemet 25/100 DBS Right DBS Left MDS-UPDRS Motor subscale scores Speech 0-Normal. No speech problems. Facial Expression 2-Mild. In addition to decreased eye-blink frequency, Masked facies present in the lower face as well, namely fewer movements around the mouth, such as less spontaneous smiling, butlips not parted. Rigidity Neck 2-Mild. Rigidity detected without the activation maneuver, but full range of motion is easily achieved. Rigidity Right Upper Extremity 1-Slight. Rigidity only detected with activation maneuver. Rigidity Left Upper Extremity 1-Slight. Rigidity only detected with activation maneuver. Rigidity Right Lower Extremity 2-Mild. Rigidity detected without the activation maneuver, but full range of motion is easily achieved. Rigidity Left Lower Extremity 2-Mild. Rigidity detected without the activation maneuver, but full range of motion is easily achieved. Finger Taps Right 1-Slight. a) the regular rhythm is broken with one or two interruptions or hesitations of the tapping movement, b) slight slowing, c) the amplitude decrements near the end of the 10taps. Finger Taps Left 1-Slight. a) the regular rhythm is broken with one or two interruptions or hesitations of the tapping movement, b) slight slowing, c) the amplitude decrements near the end of the 10 taps. Hand Movements Right 1-Slight. a) the regular rhythm is broken with one or two interruptions or hesitations of the movement, b) slight slowing, c) the amplitude decrements near the end of the task. Hand Movements Left 2-Mild. a) 3 to 5 interruptions during the movements, b) mild slowing, c) the amplitude decrements midway in the task. Arm Movements Right 2-Mild. a) 3 to 5 interruptions during the movements, b) mild slowing, c) the amplitude decrements midway in the sequence. Arm Movements Left 2-Mild. a) 3 to 5 interruptions during the movements, b) mild slowing, c) the amplitude decrements midway in the sequence. Toe Taps Right 2-Mild. a) 3 to 5 interruptions during the tapping movements, b) mild slowing, c) the amplitude decrements midway in the task. Toe Taps Left 2-Mild. a) 3 to 5 interruptions during the tapping movements, b) mild slowing, c) theamplitude decrements midway in the task. Leg Agility Right 1-Slight. a) the regular rhythm is broken with one or two interruptions or hesitations of the movement, b) slight slowing, c) the amplitude decrements near the end of the task. Leg Agility Left 2-Mild. a) 3 to 5 interruptions during the movements, b) mild slowness, c) the amplitude decrements midway in the task. Arise From Chair 0-Normal. No problems. Able to arise quickly without hesitation. Gait 0-Normal. No problems. Gait Freezing 0-Normal. No freezing. Posture Stability 0-Normal. No problems: recovers with one or two steps. Posture 1-Slight. Not quite erect, but posture could be normal for older person. Body Bradykinesia 1-Slight. Slight global slowness and poverty of spontaneous movements. Postural Tremor Hand Right 0-Normal. No tremor. Postural Tremor Hand Left 1-Slight. Tremor is present but less than 1cm in amplitude. Kinetic Tremor Right 0-Normal. No tremor. Kinetic Tremor Left 0-Normal. No tremor. Rest Tremor Amplitude Right Upper Extremity 0-Normal. No tremor. Rest Tremor Amplitude Left Upper Extremity 0-Normal. No tremor. Rest Tremor Amplitude Right Lower Extremity 0-Normal. No tremor. Rest Tremor Amplitude Left Lower Extremity 0-Normal. No tremor. Rest Tremor Amplitude Lip/Jaw 0-Normal. No tremor. Rest Tremor Constancy 0-Normal. No tremor. MDS-UPDRS Motor subscale totals Left Total 13 Right Total 10 Midline Total 6 Tremor Total / 10 1 PIGD Total / 3 0 Overall Total 29 % Change Compared to Last Filed Total Based on today's exam the patient is Citlalli and Yahr stage 2 (Bilateral disease without impairment of balance). Assessment and Plan: Mr. Ramos is a 63 year old male with idiopathic Parkinson's disease. The following are the current problems noted and addressed during this visit: Pd (parkinson's disease) Plan: Continue current antiparkinsonian regimen as dosed. Return in about 6 months (around 11/09/2023). Medical decision making was high complexity due to patient's, multiple symptoms, advancing disease The total time spent on the patient care was 11 minutes with greater than 50% of the time spent on counseling regarding preparing to see the patient, muvq-kr-[id number] patient care, completing clinical documentation, obtaining and/or reviewing separately obtained history, performing a medically appropriate examination, counseling and educating the patient/family/caregiver, ordering medications, tests,or procedures, and communicating results to the patient/family/caregiver. I tried to answer all of the patient's questions and concerns during this visit. Tremayne Gibson DO Senior Staff Neurologist - [facility] * Abhishek Cotto LPN - 05/10/2023 10:45 AM EDT 05/09/2023 PROMIS Global Health Physical Health Summary Physical health: Very good Everyday physical activity, ability: Completely Fatigue: Mild Pain level: 0 No Pain General health: Very good Social activities/roles, ability: Very good Physical Health T-Score 57.7 (Very Good) Physical Health Percentile 78 PROMIS Global Health Mental Health Summary Quality of life: Very good Mental health (mood,thinking): Excellent Social satisfaction: Excellent Emotional problems (anxious,depressed): Never Mental Health T-Score 62.5 (Excellent) Mental Health Percentile 89 PHQ-9 Score: 1(Minimal Depression) PHQ-9 Self-Harm: Not at all PROMIS PHYSICAL FUNCTION SCORE 11/08/2021 10/11/2021 Promis Physical Function Percentile 38 58 Percentiles provide an indication of how a patient's score ranks in relation to the [place] general population. > 31st percentile is within normal limits or better *< 31st percentile is at least SD worse than population, which may be clinically relevant < 16th percentile is at least 1 SD worse than population and warrants attention Sleep Apnea Probability Snores loudly: Tired, fatigued or sleepy in daytime: Stops breathing or choking/gasping during sleep: High blood pressure: Sleep Apnea Probability Score: (Sleep study not recommended) [facility] Miscellaneous Notes* Telephone Encounter - Drew Mora RN - 04/06/2023 2:59 PM EDT Form printed and in nursing outbox for MD signature. Drew Mora RN * Telephone Encounter - Flora Quevedo - 04/06/2023 2:05 PM EDT Received form by fax from [facility] in [place]. They are asking if the patient can participate [employer] Parkinsons fitness class. Scanned form to patient's chart for provider signature. documented in [facility]23 NoteUT Electrophysiology Consult Note Reason for visit: f/u 04/03/23 Patient here for 6 mo follow up. Needs to have basal cell carcinoma removed in May 2023. Denies chest pain, SOB, palpitations, and LE edema. He recently went to Parkinson symposium at [facility]. He is handling his meds well. Device check 04/03/23 SR with normal parameters. 42% RA pacing and 23% RV pacing. Review of Systems Musculoskeletal: Positive for arthritis, back pain and myalgias. All other systems reviewed and are negative. [facility] neurology recently made a formal diagnosis of Parkinson's and he has been started on carbidopa. He is told that there has been a change in tremors. He is also on Cardizem. Device check performed on 09/20/2022 shows no evidence of atrial fibrillation and lead thresholds has been stable. Prior HPI: Jak Ramos is a 62 y.o. year old with past medical history of dual-chamber pacemaker which was initially implanted on 08/27/2008 had subsequently undergone GEN change by Dr. Pressley on 01/06/2015 Denies any changes since last seen. He denies any CP, dyspnea, orthopnea, PND, LE edema, palpitations, dizziness/LH, syncope. He reports noticing a change in his gait. Left leg doesn't seem to move like it use to, almost like he has drop foot reported per his . This seems to be running in the family. Patient states he discussed with PCP who did a neuro exam that was unremarkable. Denies any weakness, numbness/tingling. States it does not affect his ADLs/activities. Device check that was performed on 03/09/2021 reveals a Cynthia Biotronik dual-chamber pacemaker with a 40% atrial pacing and 5% RV pacing with good thresholds. There is evidence of underlying atrial fibrillation noted on the device check with some having lasted for nearly 16 hours the maximum sensed ventricular rate was noted to be in the 140 to 150 bpm range Echocardiogram 09/18/2019 EF is normal with moderate aortic dilatation and no significant valvular abnormalities Device check performed on 12/20/2021 shows underlying rhythm to be sinus with no atrial fibrillation as per Af burden report. He is pacing in the atrium 44% of the time in the RV 14%. There has been high atrial rate noted at 180 bpm which was missed classified as sinus tachycardia by the device company but is most suggestive of possible atrial tachycardia but I do not have any strips to review. PMHx: atrial tachycardia, neurocardiogenic syncope s/p CLS dual chamber PM PMH: No past medical history on file. PSH: No past surgical history on file. SH: Social Determinants of Health Tobacco Use: Low Risk (10/03/2022) Patient History Smoking Tobacco Use: Never Smokeless Tobacco Use: Never Passive Exposure: Not on file Alcohol Use: Not on file Financial Resource Strain: Not on file Food Insecurity: Not on file Transportation Needs: Not on file Physical Activity: Not on file Stress: Not on file Social Connections: Not on file Intimate Partner Violence: Not on file Depression: Not on file Housing Stability: Not on file Allergies: No Known Allergies Weight: 87.5kg Visit Vitals BP (!) 139/93 (BP Location: Right arm, Patient Position: Sitting) Pulse 87 Ht 1.956 m (6' 5 ) Wt 87.5 kg (193 lb) SpO2 99% BMI 22.89 kg/m??? Smoking Status Never BSA 2.18 m??? Meds: Current Outpatient Medications on File Prior to Visit Medication Sig Dispense Refill aspirin 325 mg tablet in the morning. carbidopa-levodopa (Sinemet) 25-100 mg tablet Take 1 tablet by mouth in the morning, afternoon, and at bedtime. dilTIAZem CD (Cardizem CD) 240 mg 24 hr capsule Take 1 capsule (240 mg) by mouth once daily as directed. 90 capsule 3 No current facility-administered medications on file prior to visit. ROS: Cardio Basic Cardiovascular Symptoms: no lightheadedness, no leg edema, no syncope, no orthopnea, no PND, no claudication, Constitutional Constitutional: no fever, no night sweats, no significant weight gain, no significant weight loss, no exercise intolerance Eyes Eyes: no dry eyes, no irritation, no vision change ENMT Ears: no difficulty hearing, no ear pain Nose: no frequent nosebleeds, Mouth/Throat: no sore throat, no bleeding gums, no snoring, no dry mouth, no mouth ulcers, no oral abnormalities, no teeth problems Respiratory Respiratory: no cough, no wheezing, no coughing up blood, no sleep apnea Musculoskeletal Musculoskeletal: no muscle aches, no muscle weakness, joint pain+, no back pain, no swelling in the extremities Integumentary Skin no rash, no ulcer, no varicosities, no discoloration, no pruritus Neurologic Neurologic: no loss of consciousness, no weakness, no numbness, no seizures, no dizziness, no headaches Psychiatric Psych: no depression, feeling safe in relationship, no alcohol abuse, Hematologic/Lymphatic Hematologic/Lymphatic no swollen glands, no bruising Physical Exam: Constitutional General Appearance: well-nour (more content not included)...[facility]08-08-2023 Evaluation note* Encounter Date Diagnosis Assessment Notes Treatment Notes Treatment Clinical Notes Mar, Atrial tachycardia, paroxysmal (ICD-10 - I47.1) Healthy diet, exercise and avoid stimulants. Continue Cardizem No breakthrough episodes for years. f/u Cardiology Mar, Parkinsons disease (ICD-10 - G20) Symptoms tolerable. Fall precautions Continue medical therapy, continue daily stretching and balance exercises. f/u Neurology Mar, Neurocardiogenic syncope (ICD-10 - R55) Resolved w/ PM insertion. Hydrate, healthy diet f/u PM clinic Mar, Peripheral polyneuropathy (ICD-10 - G62.9) Fall precautions. Inspect feet daily for cuts and calluses. w/u unremarkable Parkinson's association suggested Mar, Weight loss (ICD-10 - R63.4) Instructed to increase protein and calories. Protien supplement recommended. Monitor for now. [facility] Other 06-12-2023 NoteHNO ID: [id number] Author: Mecca Awan MD Service: ? Author Type: Physician Type: Progress Notes Filed: 01/15/2023 10:58 AM Note Text: Neurology Clinic - January 15, 2023 Reason for visit: Mr. Ramos is referred by Tremayne Gibson for my opinion regarding neuropathy. My final recommendation will be communicated back to the requesting physician by way of shared medical record or letter. HISTORY OF PRESENT ILLNESS: Patient is a 62 year old, right-handed, White, male with history of syncope, PD. History gathered from patient and electronic medical records. He started having PD symptoms - ambulation, tremors in Jul 2021, established with Dr. Gibson in Oct 2021, diagnosed with PD; had PT and speech therapies. He was started on sinemet in December 2021. Medication has helped with tremors and balance. He thinks he has neuropathy - has abnormal gait - dragging LLE, no falls, may stumble; may have intermittent numbness in the L foot. May have difficulty getting up from the floor; LUE does not swing when he walks. May have less dexterity in the L hand. Other symptoms : cramps in the foot (in the morning, L>R). He denies having constant numbness/tingling/sharp/burning pain; no night awakenings. Gait is improved with PT and sinemet. He continues to play softball. He is being referred [place] [facility] for family history of neuropathy. He mentions that his mother (María, 87 y/o))has neuropathy. She started having tingling in her feet in her 60s, she reportedly had EMG then that showed the start of peripheral neuropathy and was recommended to start B-vitamins. Her neuropathy reported has progressed over time - stopped driving in 2017 and currently uses assistive device to ambulate. A maternal uncle(Bienvenido, 85 y/o) may have neuropathy but he denies it. He is a retired a surgeon - stopped horse back riding, may have difficulty getting up from a chair. He also started having neuropathy symptoms in his 60s. A maternal aunt(Sydnee Robbins, 80 y/o) - has numbness in the feet, no tingling/sharp sensations, no balance issues; started having symptoms in her 70s. She wears socks all the time, she is a retired nurse. No known family history of children/young adults having neuropathy symptoms. Patient does not have a dietary preference, no EtOH; no supplements. No known exposure to heavy metals or toxins, no chemotherapeutic agents. PAST MEDICAL HISTORY Diagnosis Date Neurocardiogenic syncope PD (Parkinson's disease) ([facility]) 12/2021 PAST SURGICAL HISTORY Procedure Laterality Date ANESTH,PACEMAKER INSERTION MEDICATIONS: Current Outpatient Medications Medication Sig Dispense Refill carbidopa-levodopa (SINEMET) 25-100 mg per tablet Take 1 tablet by mouth three times daily. 270 tablet 3 dilTIAZem CR (TIAZAC,TAZTIA XT) 240 mg 24 hr capsule Take 240 mg by mouth once daily. aspirin 325 mg tablet Take 325 mg by mouth once daily. No current facility-administered medications for this visit. ALLERGY: ALLERGIES No Known Allergies FAMILY HISTORY Problem Relation Age of Onset Neuropathy Mother Neuropathy Maternal Grandmother Neuropathy Maternal Aunt Neuropathy Maternal Uncle Social History Tobacco Use Smoking status: Never Smokeless tobacco: Never DATA: Radiology: Laboratory: Other: REVIEW OF SYSTEMS: per HPI General: no wt. loss/gain, change in appetite, fever, malaise HEENT: (+) headache - migraine, (-)problems with vision, hearing Cardiac: no chest pain, palpitation Respiratory: no shortness of breath, cough, cold GI: (+) change in bowel habits - constipation, (-) abdominal pain : no incontinence, frequency, urgency Musculoskeletal: no joint/muscle pain, no swelling Skin: no rash Endocrine: no cold/hot intolerance, thyroid, diabetes Immunologic: no known immunologic disorders Neurologic/Psychiatric: no other known neurologic or psychiatric problems PHYSICAL EXAM: BP 121/80 Pulse 81 HEENT: atraumatic, normocephalic Neck: supple Extremities: good pulses NEUROLOGICAL EXAM: MSE: Awake, alert, oriented x 3, language intact, attention and concentration normal CN: EOMI, no nystagmus, V1-V3 intact, no facial weakness, normal hearing to communication, good elevation of soft palate, tongue midline with good strength, no dysarthria Motor: Gait: able to tandem, toe and heel walk; (+) reduced arm swing, no en bloc turning No pronator drift, rapid finger movements are symmetrical (+) increased tone in bilateral UEs and normal bulk (+) minimal postural tremors Power: Right Left Neck flexion 5/5 Neck extension 5/5 Trapezius 5/5 5/5 Deltoids 5/5 5/5 Biceps 5/5 5/5 Triceps 5/5 5/5 Wrist Ext 5/5 5/5 Wrist Flex 5/5 5/5 Finger Ext 5/5 5/5 FDI 5/5 5/5 ADM 5/5 5/5 APB 5/5 5/5 FDP 2,3 5/5 5/5 FDP 4,5 5/5 5/5 FPL 5/5 5/5 Hip Flexors 5/5 5/5 Knee Extensors 5/5 5/5 Knee Flexors 5/5 5/5 Ankle DF 5/5 5/5 Ankle PF 5/5 5/5 In (more content not included)...[facility]03-06-2023 Evaluation note* Encounter Date Diagnosis Assessment Notes Treatment Notes Treatment Clinical Notes Oct, Parkinson's disease (ICD-10 - G20) [facility] Other 02-28-2023 Evaluation note* Encounter Date Diagnosis Assessment Notes Treatment Notes Treatment Clinical Notes Sep, Hypercholesterolemia (ICD-10 - E78.00) Diet and exercise Sep, Wellness examination (ICD-10 - Z00.00) Healthy diet and exercise. Reviewed age-appropriate preventive testing recommended. Sep, Benign prostatic hyperplasia with lower urinary tract symptoms (ICD-10 - N40.1) Yearly CHAUNCEY and PSA Sep, Parkinsons disease (ICD-10 - G20) Continue Sinemet and f/u with Neurology. Fall precautions Sep, Paresthesias (ICD-10 - R20.2) f/u Neurology, scheduled to be seen at [facility] neuropathy clinic. Fall precautions., inspect feet daily for cuts and calluses. Sep, Paroxysmal atrial fibrillation (ICD-10 - I48.0) CHADS VASC=0 Denies episodes of tachycardia. f/u Cardiology Sep, Cardiac pacemaker (I CD-10 - Z95.0) PM checks q 6mo [facility] Other 02-28-2023 NoteUT Electrophysiology Consult Note Reason for visit: f/u He has been doing good but has been noting more neuropathy. he is being evaluated for the above by [facility] neurology who recently made a formal diagnosis of Parkinson's and he has been started on carbidopa. He is told that there has been a change in tremors. He is also on Cardizem. Device check performed on 09/20/2022 shows no evidence of atrial fibrillation and lead thresholds has been stable. Prior HPI: Jak Ramos is a 62 y.o. year old with past medical history of dual-chamber pacemaker which was initially implanted on 08/27/2008 had subsequently undergone GEN change by Dr. Pressley on 01/06/2015 Denies any changes since last seen. He denies any CP, dyspnea, orthopnea, PND, LE edema, palpitations, dizziness/LH, syncope. He reports noticing a change in his gait. Left leg doesn't seem to move like it use to, almost like he has drop foot reported per his . This seems to be running in the family. Patient states he discussed with PCP who did a neuro exam that was unremarkable. Denies any weakness, numbness/tingling. States it does not affect his ADLs/activities. Device check that was performed on 03/09/2021 reveals a Cynthia Biotronik dual-chamber pacemaker with a 40% atrial pacing and 5% RV pacing with good thresholds. There is evidence of underlying atrial fibrillation noted on the device check with some having lasted for nearly 16 hours the maximum sensed ventricular rate was noted to be in the 140 to 150 bpm range Echocardiogram 09/18/2019 EF is normal with moderate aortic dilatation and no significant valvular abnormalities Device check performed on 12/20/2021 shows underlying rhythm to be sinus with no atrial fibrillation as per Af burden report. He is pacing in the atrium 44% of the time in the RV 14%. There has been high atrial rate noted at 180 bpm which was missed classified as sinus tachycardia by the device company but is most suggestive of possible atrial tachycardia but I do not have any strips to review. PMHx: atrial tachycardia, neurocardiogenic syncope s/p CLS dual chamber PM PMH: History reviewed. No pertinent past medical history. PSH: History reviewed. No pertinent surgical history. SH: Social Determinants of Health Tobacco Use: Low Risk Smoking Tobacco Use: Never Smokeless Tobacco Use: Never Passive Exposure: Not on file Alcohol Use: Not on file Financial Resource Strain: Not on file Food Insecurity: Not on file Transportation Needs: Not on file Physical Activity: Not on file Stress: Not on file Social Connections: Not on file Intimate Partner Violence: Not on file Depression: Not on file Housing Stability: Not on file Allergies: No Known Allergies Weight: 92.4kg Visit Vitals BP (!) 132/93 (BP Location: Left arm, Patient Position: Sitting, BP Cuff Size: Adult) Pulse 84 Ht 1.956 m (6' 5 ) Wt 92.4 kg (203 lb 12.8 oz) SpO2 95% BMI 24.17 kg/m??? Smoking Status Never BSA 2.24 m??? Meds: Current Outpatient Medications on File Prior to Visit Medication Sig Dispense Refill aspirin 325 mg tablet in the morning. carbidopa-levodopa (Sinemet) 25-100 mg tablet Take 1 tablet by mouth in the morning, afternoon, and at bedtime. dilTIAZem CD (Cardizem CD) 240 mg 24 hr capsule Take by mouth in the morning. No current facility-administered medications on file prior to visit. ROS: Cardio Basic Cardiovascular Symptoms: no lightheadedness, no leg edema, no syncope, no orthopnea, no PND, no claudication, Constitutional Constitutional: no fever, no night sweats, no significant weight gain, no significant weight loss, no exercise intolerance Eyes Eyes: no dry eyes, no irritation, no vision change ENMT Ears: no difficulty hearing, no ear pain Nose: no frequent nosebleeds, Mouth/Throat: no sore throat, no bleeding gums, no snoring, no dry mouth, no mouth ulcers, no oral abnormalities, no teeth problems Respiratory Respiratory: no cough, no wheezing, no coughing up blood, no sleep apnea Musculoskeletal Musculoskeletal: no muscle aches, no muscle weakness, joint pain+, no back pain, no swelling in the extremities Integumentary Skin no rash, no ulcer, no varicosities, no discoloration, no pruritus Neurologic Neurologic: no loss of consciousness, no weakness, no numbness, no seizures, no dizziness, no headaches Psychiatric Psych: no depression, feeling safe in relationship, no alcohol abuse, Hematologic/Lymphatic Hematologic/Lymphatic no swollen glands, no bruising Physical Exam: Constitutional General Appearance: well-nourished, well-developed, appears stated age Level of Distress: comfortable Psychiatric Mental Status: alert, normal affect Orientation: oriented to time, place, and person Insight: good judgement Eyes Lids and Conjunctivae: non-injected, no xanthelasma ENMT Ears: no lesions on external ear Nose: no lesions on external nose Oropharyn (more content not included)...[facility] 10-03-2022 NoteReview of Systems All other systems reviewed and are negative.[facility] 09-19-2022 Evaluation note* Encounter Date Diagnosis Assessment Notes Treatment Notes Treatment Clinical Notes Sep, Persistent cough (ICD-10 - R05.3) No testing performed today in office. No acute lung process or signs of bacterial sinusitis present today on exam. With symptoms persisting past 2 week diane, patient wishes to get on antibiotic and steroid and requested z-pack and prednisone. Supportive care as directed, increase fluids and rest, Tylenol as directed, OTC cough/cold remedies as directed on packaging, cool mist humidifier, throat lozenges. Discussed infection control practices such as good hand washing and mask wearing. Patient to follow up with PCP if symptoms persist or worsen despite treatment. Immediate eval for SOB, difficulty, chest pain, fevers that do not break with antipyretic or any other concerning symptoms as reviewed on patient education handout. Patient verbalizes understanding and is agreeable to treatment plan. Patient left in stable condition. [facility] Other 02-03-2023 NoteHNO ID: [id number] Author: Tremayne Gibson, DO Service: ? Author Type: Physician Type: Progress Notes Filed: 09/08/2022 8:41 AM Note Text: [facility] - FOLLOW UP EVALUATION [facility]remayne Gibson [address] [facility] [address] Jak Ramos is a 62 year old male with a history of PD. He is seen alone. Interval History Since Last Visit: The Sinemet has been helpful. There are no ADRS. He is tolerating it well. He is still working.his close co-worker has not seen any changes in his voice. The tremor in the left hand is worse. Noticeable only when he holds a paper. No falls are noted. 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 There is a strong family history of maternal lineage of peripheral neuropathy. The patient denies any recent illness or infections. The patient denies any hospitalization since the last office visit. The patient denies any changes to their medical history or new diagnoses. The patient denies any surgery/procedure since their last visit. The patient denies any headache, chest pain, palpitations, shortness of breath or abdominal pain. The patient denies any seizures, numbness/tingling, lightheadedness or vertiginous symptoms. The patient denies any recent suicidal ideation or attempts to harm themselves or others. The patient denies any new pain. Parkinson's Medications Schedule: Medications 6A 10A 245P Sinemet 25/100 1 1 1 Previous Parkinson's Medications: None In addition, the following Parkinson-associated features were evaluated: Daily activities Difficulties with eatin (none) Difficulties in dressin (none) Difficulties with hygiene activities: 0 (none) Difficulties with handwritin (none) Difficulties with doing hobbies and other activities: 0 (none) Difficulties turning in bed: 0 (none) Difficulties getting out of bed, car or chair: 0 (none) Tremors/Gait/Balance Shaking or tremors: Yes (slight) Walking and balance problems: Yes (slight) Gait freezin (none) Autonomic/Pain Lightheadeness on standing: Yes (slight) Urinary problems: 0 (none) Constipation problems: Yes (slight) Pain and other sensations: 0 (none) Speech/Swallowing Speech problems: Yes (slight) Drooling: Yes (mild) Chewing and swallowing problems: 0 (none) Sleep/Fatigue Problems sleeping at night: Yes (slight) Daytime sleepiness: Yes (slight) Fatigue: 0 (none) Mood/Behavior/Cognition Depression: PQH-9 = 3 usually representing no significant (0-4) depression. Anxiety: JUAN C-7 = 0 usually representing no significant (0-4) anxiety. Finally, the following table shows the patient's overall global physical and mental health using the PROMIS scale relative to the previous visit: PROMIS-10 Flowsheet Row Office Visit from 09/08/2022 in Neurology OT/PT/Speech Visit from 10/13/2021 in [facility] Physical Therapy Global Physical Health T Score 54.1 44.9 Global Mental Health T Score 53.3 43.5 0-10 Standard Pain Scale 4 4 *PROMIS-10 scoring scale: mean = 50, over 50 is above average, under 50 is below average Allergies: ALLERGIES No Known Allergies Current Medications: Current Outpatient Medications Medication Sig carbidopa-levodopa (SINEMET) 25-100 mg per tablet Take 1 tablet by mouth three times daily. dilTIAZem CR (TIAZAC,TAZTIA XT) 240 mg 24 hr capsule Take 240 mg by mouth once daily. aspirin 325 mg tablet Take 325 mg by mouth once daily. No current facility-administered medications for this visit. Objective: Vital Signs: BP 146/93 Pulse 82 Ht 195.6 cm (6' 5 ) Wt 93.6 kg (206 lb 4.8 oz) SpO2 94% BMI 24.46 kg/m? General Medical Examination: General Description of Patient: Well appearing, comfortable Head:normocephalic, atraumatic Neck:No bruits, full range of movement, supple Cardiac: Regular Rate and Rhythm Extremities: No leg edema, pulses intact, no rash or venous stasis changes. Neurological Exam Mental Status Awake and alert. Oriented to person, place and time. Recent and remote memory are intact. Speech is normal. Language is fluent with no aphasia. Attention and concentration are normal. Fund of knowledge is appropriate for level of education. Cranial Nerves CN II to XII reported as normal . Motor No fasciculations present. Strength is 5/5 throughout all four extremities. No focal weakness appreciated on examination. Sensory There is no evidence for a stocking-glove gradient in bilateral extremities. Dual simultaneous stimulation is intact. Reflexes Right Left Brachioradialis 2+ 2+ Biceps 2+ 2+ Triceps 2+ 2+ Patellar 2+ 2+ Right pathological reflexes: Rashel's absent. Left pathological reflexes: Rashel's absent. Coordination Right: Owybjo-jl-[id number] normal. Rapid alternating movement normal.Left: Bhyved-id-ddmq normal. Rapid alternating movement normal. (more content not included)...[id number] Instructions* Patient Instructions* Tremayne Gibson DO - 09/08/2022 8:40 AM EST Medications 6A 10A 245P Sinemet 25/100 1 1 1 [facility] of Present illness Narrative* Tremayne Gibson DO - 09/08/2022 8:18 AM EST [facility] - FOLLOW UP EVALUATION Tremayne Gibson [address] [facility] [id number] Jak Ramos is a 62 year old male with a history of PD. He is seen alone. Interval History Since Last Visit: The Sinemet has been helpful. There are no ADRS. He is tolerating it well. He is still working.his close co-worker has not seen any changes in his voice. The tremor in the left hand is worse. Noticeable only when he holds a paper. No falls are noted. 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 There is a strong family history of maternal lineage of peripheral neuropathy. The patient denies any recent illness or infections. The patient denies any hospitalization since the last office visit. The patient denies any changes to their medical history or new diagnoses. The patient denies any surgery/procedure since their last visit. The patient denies any headache, chest pain, palpitations, shortness of breath or abdominal pain. The patient denies any seizures, numbness/tingling, lightheadedness or vertiginous symptoms. The patient denies any recent suicidal ideation or attempts to harm themselves or others. The patient denies any new pain. Parkinson's Medications Schedule: Medications 6A 10A 245P Sinemet 25/100 1 1 1 Previous Parkinson's Medications: None In addition, the following Parkinson-associated features were evaluated: Daily activities Difficulties with eatin (none) Difficulties in dressin (none) Difficulties with hygiene activities: 0 (none) Difficulties with handwritin (none) Difficulties with doing hobbies and other activities: 0 (none) Difficulties turning in bed: 0 (none) Difficulties getting out of bed, car or chair: 0 (none) Tremors/Gait/Balance Shaking or tremors: Yes (slight) Walking and balance problems: Yes (slight) Gait freezin (none) Autonomic/Pain Lightheadeness on standing: Yes (slight) Urinary problems: 0 (none) Constipation problems: Yes (slight) Pain and other sensations: 0 (none) Speech/Swallowing Speech problems: Yes (slight) Drooling: Yes (mild) Chewing and swallowing problems: 0 (none) Sleep/Fatigue Problems sleeping at night: Yes (slight) Daytime sleepiness: Yes (slight) Fatigue: 0 (none) Mood/Behavior/Cognition Depression: PQH-9 = 3 usually representing no significant (0-4) depression. Anxiety: JUAN C-7 = 0 usually representing no significant (0-4) anxiety. Finally, the following table shows the patient's overall global physical and mental health using the PROMIS scale relative to the previous visit: PROMIS-10 Flowsheet Row Office Visit from 09/08/2022 in Neurology OT/PT/Speech Visit from 10/13/2021 in [facility] Physical Therapy Global Physical Health T Score 54.1 44.9 Global Mental Health T Score 53.3 43.5 0-10 Standard Pain Scale 4 4 *PROMIS-10 scoring scale: mean = 50, over 50 is above average, under 50 is below average Allergies: ALLERGIES No Known Allergies Current Medications: Current Outpatient Medications Medication Sig carbidopa-levodopa (SINEMET) 25-100 mg per tablet Take 1 tablet by mouth three times daily. dilTIAZem CR (TIAZAC,TAZTIA XT) 240 mg 24 hr capsule Take 240 mg by mouth once daily. aspirin 325 mg tablet Take 325 mg by mouth once daily. No current facility-administered medications for this visit. Objective: Vital Signs: BP 146/93 Pulse 82 Ht 195.6 cm (6' 5 ) Wt 93.6 kg (206 lb 4.8 oz) SpO2 94% BMI 24.46 kg/m General Medical Examination: General Description of Patient: Well appearing, comfortable Head:normocephalic, atraumatic Neck:No bruits, full range of movement, supple Cardiac: Regular Rate and Rhythm Extremities: No leg edema, pulses intact, no rash or venous stasis changes. Neurological Exam Mental Status Awake and alert. Oriented to person, place and time. Recent and remote memory are intact. Speech isnormal. Language is fluent with no aphasia. Attention and concentration are normal. Fund of knowledge is appropriate for level of education. Cranial Nerves CN II to XII reported as normal . Motor No fasciculations present. Strength is 5/5 throughout all four extremities. No focal weakness appreciated on examination. Sensory There is no evidence for a stocking-glove gradient in bilateral extremities. Dual simultaneous stimulation is intact. Reflexes Right Left Brachioradialis 2+ 2+ Biceps 2+ 2+ Triceps 2+ 2+ Patellar 2+ 2+ Right pathological reflexes: Rashel's absent. Left pathological reflexes: Rashel's absent. Coordination Right: Yykzzr-bi-spir normal. Rapid alternating movement normal.Left: Izntig-sl-rgot normal. Rapid alternating movement normal. Gait Casual gait: Narrow stance. Normal stride length. Normal gait. Normal right arm swing. Reduced leftarm swing. Normal pull test. Able to rise from chair without using arms. The patient did not require assistive devices to ambulate. Parkinson's Scales Performed: MDS-UPDRS Motor subscale condition of exam Medication Off/On/Naiive ON Time of UPDRS 0830 Time of Last Medication 0600 Last Medication Taken Sinemet 25/100 DBS Right DBS Left MDS-UPDRS Motor subscale scores Speech 0-Normal. No speech problems. Facial Expression 2-Mild. In addition to decreased eye-blink frequency, Masked facies present in the lower face as well, namely fewer movements around the mouth, such as less spontaneous smiling, butlips not parted. Rigidity Neck 3-Moderate. Rigidity detected without the activation maneuver. Full range of motion is achieved with effort. Rigidity Right Upper Extremity 1-Slight. Rigidity only detected with activation maneuver. Rigidity Left Upper Extremity 1-Slight. Rigidity only detected with activation maneuver. Rigidity Right Lower Extremity 2-Mild. Rigidity detected without the activation maneuver, but full range of motion is easily achieved. Rigidity Left Lower Extremity 2-Mild. Rigidity detected without the activation maneuver, but full range of motion is easily achieved. Finger Taps Right 1-Slight. a) the regular rhythm is broken with one or two interruptions or hesitations of the tapping movement, b) slight slowing, c) the amplitude decrements near the end of the 10taps. Finger Taps Left 1-Slight. a) the regular rhythm is broken with one or two interruptions or hesitations of the tapping movement, b) slight slowing, c) the amplitude decrements near the end of the 10 taps. Hand Movements Right 1-Slight. a) the regular rhythm is broken with one or two interruptions or hesitations of the movement, b) slight slowing, c) the amplitude decrements near the end of the task. Hand Movements Left 3-Moderate. a) more than 5 interruptions during the movement or at least one longer arrest (freeze) in ongoing movement, b) moderate slowing, c) the amplitude decrements starting after the 1st gbld-tyt-[id number] sequence. Arm Movements Right 2-Mild. a) 3 to 5 interruptions during the movements, b) mild slowing, c) the amplitude decrements midway in the sequence. Arm Movements Left 4-Severe. Cannot or can only barely perform the task because of slowing, interruptions or decrements. Toe Taps Right 1-Slight. a) the regular rhythm is broken with one or two interruptions or hesitations of the tapping movement, b) slight slowing, c) the amplitude decrements near the end of the ten taps. Toe Taps Left 3-Moderate. a) more than 5 interruptions during the tapping movements or at least onelonger arrest (freeze) in ongoing movement, b) moderate slowing, c) the amplitude decrements starting after the first tap. Leg Agility Right 0-Normal. No problems. Leg Agility Left 2-Mild. a) 3 to 5 interruptions during the movements, b) mild slowness, c) the amplitude decrements midway in the task. Arise From Chair 0-Normal. No problems. Able to arise quickly without hesitation. Gait 0-Normal. No problems. Gait Freezing 0-Normal. No freezing. Posture Stability 0-Normal. No problems: recovers with one or two steps. Posture 1-Slight. Not quite erect, but posture could be normal for older person. Body Bradykinesia 1-Slight. Slight global slowness and poverty of spontaneous movements. Postural Tremor Hand Right 1-Slight. Tremor is present but less than 1cm in amplitude. Postural Tremor Hand Left 1-Slight. Tremor is present but less than 1cm in amplitude. Kinetic Tremor Right 0-Normal. No tremor. Kinetic Tremor Left 0-Normal. No tremor. Rest Tremor Amplitude Right Upper Extremity 0-Normal. No tremor. Rest Tremor Amplitude Left Upper Extremity 0-Normal. No tremor. Rest Tremor Amplitude Right Lower Extremity 0-Normal. No tremor. Rest Tremor Amplitude Right Lower Extremity 0-Normal. No tremor. Rest Tremor Amplitude Lip/Jaw 0-Normal. No tremor. Rest Tremor Constancy 0-Normal. No tremor. MDS-UPDRS Motor subscale totals Left Total 17 Right Total 9 Midline Total 7 Tremor Total / 10 2 PIGD Total / 3 0 Overall Total 33 % Change Compared to Last Filed Total Based on today's exam the patient is Citlalli and Yahr stage 2 (Bilateral disease without impairment of balance). Assessment and Plan: Mr. Ramos is a 62 year old male with idiopathic Parkinson's disease. The following are the current problems noted and addressed during this visit: Pd (parkinson's disease) ([facility]) (primary encounter diagnosis) Neuropathy, peripheral, hereditary Plan: Continue Sinemet Encouraged exercise - ~150 minutes of strenuous exercise weekly is recommended Defer until 12/26; PT at [facility] Defer until 12/26; genetic counseling for testing for peripheral neuropathy Return in about 6 months (around 03/08/2023). Medical decision making was high complexity due to patient's, multiple symptoms, advancing disease,newly diagnosed Neurologic disease and counseling about snf implications The total time spent on the patient care was 25 minutes with greater than 50% of the time spent on counseling regarding preparing to see the patient, [id number] patient care, completing clinical documentation, obtaining and/or reviewing separately obtained history, performing a medically appropriate examination, counseling and educating the patient/family/caregiver, ordering medications, tests,or procedures, and communicating results to the patient/family/caregiver. I tried to answer all of the patient's questions and concerns during this visit. Tremayne Gibson DO Senior Staff Neurologist - [facility] documented in this encounter[facility]22 Instructions* Patient Instructions* Tremayne Gibson DO - 12/29/2021 2:18 PM EDT 1. MIRALAX Instructions: Oral: 17 g (~1 heaping tablespoon) dissolved in 120 to 240 mL (4 to 8 ounces) of beverage/water, once daily; do not use daily for >1 to 2 weeks continuously 2. Sinemet 25/100 (generally yellow tablet) instructions: 8AM 12PM 4PM 1 week 1/2 0 1/2 1 week 1 1/2 1/2 Continue 1 1 1 a. Take Sinemet 30 minutes before meals or 60 minutes after meals. Avoid taking this medication with high protein meals. b. If nausea develops, try taking Sinemet with crackers or bread. c. If nausea still persists, please call. Avoid taking anti-nausea medications before speaking withus. Avoid Reglan, Compazine or Phenergan. documented in this encounterMer[facility]05-26-2022 History of Present illness Narrative* Tremayne Gibson DO - 12/29/2021 2:10 PM EDT [facility] - FOLLOW UP EVALUATION Tremayne Gibson [address] [facility] [address] Jak Ramos is a 61 year old male with a history of IPD (idiopathic Parkinson's disease). He is seen with his . 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 He notes mild depression. He has been using the treadmill. The short-term memory issues are still an issue. He notes continuing cognitive issues. The PT has been helpful - he notes more [id number]. No falls arereported. The patient denies any recent illness or infections. The patient denies any hospitalization since the last office visit. The patient denies any changes to their medical history or new diagnoses. The patient denies any surgery/procedure since their last visit. The patient denies any headache, chest pain, palpitations, shortness of breath or abdominal pain. The patient denies any seizures, numbness/tingling, lightheadedness or vertiginous symptoms. The patient denies any recent suicidalideation or attempts to harm themselves or others. The patient denies any new pain. MBSE - mild penetration. There is a history of neuropathy in the family. Parkinson's Medications Schedule: NONE Previous Parkinson's Medications: None In addition, the following Parkinson-associated features were evaluated: Daily activities Difficulties with eating: No Difficulties in dressing: No Difficulties with hygiene activities: No - trouble with toweling off Difficulties with handwriting: No Difficulties with doing hobbies and other activities: No Difficulties turning in bed: No Difficulties getting out of bed, car or chair: No Tremors/Gait/Balance Shaking or tremors: Yes: no worsening Walking and balance problems: Yes: better with PT Gait freezing: No Autonomic/Pain Lightheadeness on standing: Yes: occasionally Urinary problems: No Constipation problems: Yes: Pain and other sensations: No Speech/Swallowing Speech problems: Yes: Drooling: Yes: rare Chewing and swallowing problems: Yes: rare Sleep/Fatigue Problems sleeping at night: No Daytime sleepiness: No Fatigue: No REM sleep behavior disorder: No Mood/Behavior/Cognition Depression: PQH-9 = 0 usually representing no significant (0-4) depression. Anxiety: JUAN C-7 = 0 usually representing no significant (0-4) anxiety. Finally, the following table shows the patient's overall global physical and mental health using the PROMIS scale relative to the previous visit: PROMIS-10 OT/PT/Speech Visit from 10/13/2021 in [facility] Physical Therapy Global Physical Health T Score 44.9 Global Mental Health T Score 43.5 0-10 Standard Pain Scale 4 *PROMIS-10 scoring scale: mean = 50, over 50 is above average, under 50 is below average Allergies: ALLERGIES No Known Allergies Current Medications: Current Outpatient Medications Medication Sig carbidopa-levodopa (SINEMET) 25-100 mg per tablet Take 1 tablet by mouth three times daily. dilTIAZem CR (TIAZAC,TAZTIA XT) 240 mg 24 hr capsule Take 240 mg by mouth once daily. aspirin 325 mg tablet Take 325 mg by mouth once daily. No current facility-administered medications for this visit. Objective: Vital Signs: BP 114/82 (BP Site: Left Arm, BP Position: Sitting, BP Cuff Size: Large Adult) Pulse 99 General Medical Examination: General Description of Patient: Well appearing, comfortable Head:normocephalic, atraumatic Neck:No bruits, full range of movement, supple Cardiac: Regular rate and rhythm, no murmur Extremities: No leg edema, pulses intact, no rash or venous stasis changes. Neurological Exam Mental Status Oriented to person, place and time. Recent and remote memory are intact. Speech is normal. Languageis fluent with no aphasia. Attention and concentration are normal. Fund of knowledge is appropriatefor level of education. Cranial Nerves CN II to XII reported as normal . Motor No fasciculations present. Strength is 5/5 throughout all four extremities. Sensory There is no evidence for a stocking-glove gradient in bilateral extremities. Dual simultaneous stimulation is intact. Reflexes Right Left Brachioradialis 2+ 2+ Biceps 2+ 2+ Triceps 2+ 2+ Patellar 2+ 2+ Right pathological reflexes: Rashel's absent. Left pathological reflexes: Rashel's absent. Coordination Right: Pbeyje-yd-kldr normal. Rapid alternating movement normal. Left: Mqxfbs-hl-eiya normal. Rapid alternating movement normal. Gait Casual gait: Normal stance. Normal stride length. Normal gait. Reduced left arm swing. Normal pull test. Able to rise from chair without using arms. The patient did not require assistive devices to ambulate. Parkinson's Scales Performed: MDS-UPDRS Motor subscale condition of exam Medication Off/On/Naiive Drug Naiive Time of UPDRS 1420 Time of Last Medication Last Medication Taken DBS Right DBS Left MDS-UPDRS Motor subscale scores Speech 2-Mild. Loss of modulation, diction, or volume, with a few words unclear, but the overall sentences easy to follow. Facial Expression 2-Mild. In addition to decreased eye-blink frequency, Masked facies present in the lower face as well, namely fewer movements around the mouth, such as less spontaneous smiling, butlips not parted. Rigidity Neck 2-Mild. Rigidity detected without the activation maneuver, but full range of motion is easily achieved. Rigidity Right Upper Extremity 1-Slight. Rigidity only detected with activation maneuver. Rigidity Left Upper Extremity 2-Mild. Rigidity detected without the activation maneuver, but full range of motion is easily achieved. Rigidity Right Lower Extremity 2-Mild. Rigidity detected without the activation maneuver, but full range of motion is easily achieved. Rigidity Left Lower Extremity 3-Moderate. Rigidity detected without the activation maneuver. Full range of motion is achieved with effort. Finger Taps Right 2-Mild. a) 3 to 5 interruptions during tapping, b) mild slowing, c) the amplitudedecrements midway in the 10-tap sequence. Finger Taps Left 2-Mild. a) 3 to 5 interruptions during tapping, b) mild slowing, c) the amplitude decrements midway in the 10-tap sequence. Hand Movements Right 0-Normal. No problem. Hand Movements Left 3-Moderate. a) more than 5 interruptions during the movement or at least one longer arrest (freeze) in ongoing movement, b) moderate slowing, c) the amplitude decrements starting after the 1st [id number] sequence. Arm Movements Right 2-Mild. a) 3 to 5 interruptions during the movements, b) mild slowing, c) the amplitude decrements midway in the sequence. Arm Movements Left 3-Moderate. a) more than 5 interruptions during the movement or at least one longer arrest (freeze) in ongoing movement, b) moderate slowing, c) the amplitude decrements starting after the 1st supination-pronation sequence. Toe Taps Right 2-Mild. a) 3 to 5 interruptions during the tapping movements, b) mild slowing, c) the amplitude decrements midway in the task. Toe Taps Left 3-Moderate. a) more than 5 interruptions during the tapping movements or at least onelonger arrest (freeze) in ongoing movement, b) moderate slowing, c) the amplitude decrements starting after the first tap. Leg Agility Right 0-Normal. No problems. Leg Agility Left 1-Slight. a) the regular rhythm is broken with one or two interruptions or hesitations of the movement, b) slight slowing, c) the amplitude decrements near the end of the task. Arise From Chair 0-Normal. No problems. Able to arise quickly without hesitation. Gait 1-Slight. Independent walking with minor gait impairment. Gait Freezing 0-Normal. No freezing. Posture Stability 0-Normal. No problems: recovers with one or two steps. Posture 1-Slight. Not quite erect, but posture could be normal for older person. Body Bradykinesia 1-Slight. Slight global slowness and poverty of spontaneous movements. Postural Tremor Hand Right 0-Normal. No tremor. Postural Tremor Hand Left 0-Normal. No tremor. Kinetic Tremor Right 1-Slight. Tremor is present but less than 1cm in amplitude. Kinetic Tremor Left 1-Slight. Tremor is present but less than 1cm in amplitude. Rest Tremor Amplitude Right Upper Extremity 0-Normal. No tremor. Rest Tremor Amplitude Left Upper Extremity 0-Normal. No tremor. Rest Tremor Amplitude Right Lower Extremity 0-Normal. No tremor. Rest Tremor Amplitude Right Lower Extremity 0-Normal. No tremor. Rest Tremor Amplitude Lip/Jaw 0-Normal. No tremor. Rest Tremor Constancy 0-Normal. No tremor. MDS-UPDRS Motor subscale totals Left Total 18 Right Total 10 Midline Total 9 Tremor Total / 10 2 PIGD Total / 3 1 Overall Total 37 % Change Compared to Last Filed Total Based on today's exam the patient is Citlalli and Yahr stage 2 (Bilateral disease without impairment of balance). Assessment and Plan: Mr. Ramos is a 61 year old male with idiopathic Parkinson's disease. The following are the current problems noted and addressed during this visit: Pd (parkinson's disease) ([facility]) (primary encounter diagnosis) Plan: 1. Start Sinemet TID Return in about 6 months (around 07/01/2022). Medical decision making was high complexity due to patient's, multiple symptoms, advancing disease,complex treatment regimen, multiple medications and risk of side effects, difficult medication management, and high side effect risk, counseling and review of mutliple symptoms and significant problems of which treatment limited, counseling, and development of a treatment plan concerning patients cognitvie difficulty, safety risks, caregiver involvement The total time spent on the patient care was 30 minutes with greater than 50% of the time spent on counseling regarding preparing to see the patient, [id number] patient care, completing clinical documentation, obtaining and/or reviewing separately obtained history, performing a medically appropriate examination, counseling and educating the patient/family/caregiver, ordering medications, tests,or procedures and communicating results to the patient/family/caregiver. I tried to answer all of the patient's questions and concerns during this visit. Tremayne Gibson, Senior Staff Neurologist - [facility] documented in this encounterMer[facility]04-28-2022 History of Present illness Narrative* Janice Leon, CCC-TERRITORY SERVICE REPRESENTATIVE - 12/01/2021 8:55 AM EDT Episode Visit Count: 5 Therapist That Will Oversee The Plan Of Care: Janice Leon Start of Care Date: 10/13/21 Onset Date: 10/06/21 Plan of Care Certification Date: 10/13/21 Next Certification Due Date: 12/12/21 Patient Identified by Name and Date of : Yes [facility] SPEECH THERAPY PROGRESS REPORT PLAN OF CARE UPDATE: Impression: Communication deficits identified: Expressive aphasia;Voice disorder;Cognitive deficits Swallow Deficits Identified / Suspected: Pharyngeal dysphagia Progress Toward Goals: Progressing as expected Functional gains: Reduced signs/symptoms of dysphagia Goals for Episode of Care Updated: 12/02/2021 Through 12/30/2021 Goals for Episode of Care: created on 10/13/2021 through 12/12/21 ORAL MOTOR GOALS Patient will improve facial strength/ROM via oral motor exercises per 10-20 repetitions with good effort given no cues. CURRENT: Continues with facial mask. NOT MET. Continue goal. Patient will increase lingual strength/ROM to WFL via lingual exercises x 10-20 repetitions with good effort given no cues in order to improve oral phase to within functional limits. CURRENT: Continues with mild lingual tremor. NOT MET. Continue goal. EXPRESSIVE LANGUAGE GOALS To evaluate expressive language skills next session. MET on 10/18/2021. Patient will improve expressive language skills to WITHIN FUNCTIONAL LIMITS per higher level word retrieval tasks with 90-100% accuracy in order to communicate his thoughts/needs at home. CURRENT: Abstract categorical namin items named with min assist and extended amount of time. NOT MET. Continue goal. All goals to target the patient's overall ability to facilitate functional communication of ADL medical / social needs. COGNITIVE GOALS To evaluate cognitive skills next session. MET on 10/18/2021. Patient will improve short-term memory per immediate/delayed recall per 5-15 + items to 90 % accuracy with use of compensatory strategies in order to recall verbal/visual information. CURRENT: Memoryusing grouping strategy: Delayed recall with 70%, Immediate recall: 100% per 6 items, Delayed recall after 5 minutes: 100% per 6 items. NOT MET. Continue goal. Patient will improve working memory to WITHIN FUNCTIONAL LIMITS during simple/complex cognitive tasks with 90% using compensatory strategies in order to recall the steps taken during a cognitive process. CURRENT: Working memory per 5 word sentences: 80%. NOT MET. Continue goal. Patient will improve information processing time to WITHIN FUNCTIONAL LIMITS divergent naming tasksby stating 20 members of an abstract category in order to process information in timely manner. CURRENT: Abstract categorical namin items named in 1 minute. NOT MET. Continue goal. All goals to target the patient's overall ability to facilitate functional cognitive linguistic skills. SWALLOWING GOALS To further evaluate swallowing via MODIFIED BARIUM SWALLOW STUDY. MET on 11/01/2021. Discontinue goal. Patient will increase base of tongue strength to WFL via base of tongue exercises x 10-20 repetitions with good effort given no cues in order to improve propulsion of the bolus to the pharynx. CURRENT: Continues with mild weakness. NOT MET. Continue goal. Patient will increase anterior hyoid ROM to WFL via hyolaryngeal / pharyngeal exercises x 10-20 repetitions with good effort given min cues improve airway protection during swallowing. CURRENT: Continues with mild weakness. NOT MET. Continue goal. Patient will demonstrate WNL swallow reflex via DEEP PHARYNGEAL NEUROMUSCULAR STIMULATION x 10 in order to improve pharyngeal phase of swallowing to within functional limits. CURRENT: 2-3 seconds. NOT MET. Continue goal. Patient will tolerate regular diet with thin liquids while utilizing compensatory/swallowing strategies in 100% of trials. CURRENT: Patient reported that he is utilizing his swallowing strategies andreporting less dysphagia per meals. NOT MET. Continue goal. Patient will increase laryngeal elevation to WFL via laryngeal elevation exercises x 10 repetitionswith good effort given no cues in order to improve airway protection during swallowing. CURRENT: Continues with mild weakness. NOT MET. Continue goal. All goals to target the patient's overall ability to safely consume the highest appropriate diet level VOICE GOALS Patient will demonstrate sufficient respiratory support to phonate and sustain an excellent quality, LOUD ah for 20 seconds at > 75 dB SPL. (Baseline = 62.5 dB SPL @ 21 seconds) CURRENT: 73.9 dBSPL @ 9.2 seconds. NOT MET. Continue goal. Patient will increase maximum fundamental frequency at high pitch frequency while phonating an excellent quality, LOUD high pitch ah > 75 dB SPL for 5 seconds with 90% accuracy. (Baseline = 230.8 Hz @ 64.2 dB SPL moderate hoarseness) CURRENT: (Hz): 222.1 @ (dB SPL): 73.3 with mild hoarseness. NOT MET. Continue goal. Patient will increase maximum fundamental frequency at low pitch frequency while phonating a LOUD low pitch ah > 70 dB SPL for 5 seconds with 90% accuracy. (Baseline = 117 Hz @ 59.8 dB SPL) CURRENT: (Hz): 95.8 (dB SPL): 66.2. NOT MET. Continue goal. Patient will phonate with a LOUD voice > 70 dB SPL for medical and social needs during various speech tasks at word/phrase/sentence levels with 90% of the time. (Baseline = 61.9 dB SPL) CURRENT: Functional Phrases: 68.1 dB SPL; Phrases: 70.2; Sentences: 67.9. PARTIALLY MET. Continue goal. Patient will phonate with a LOUD voice > 70 dB SPL for medical and social needs during reading tasks at paragraph level for 5 minutes with 90% of the time. (Baseline = 60.6 dB SPL) NOT MET. Continue goal. Patient will increase vocal loudness when phonating with a LOUD voice > 70dB SPL for medical andsocial needs during conversation for 5 minutes with 90%. (Baseline = 60.6 dB SPL)NOT MET. Continue goal. All goals to target the patient's overall ability to facilitate functional communication of ADL medical / social needs. RECOMMENDATION: Planned Interventions, Frequency, and Duration: Cognitive-Linguistic Training Expressive Language Training Dysphagia Reduction Training Voice Training Diet Recommendations: Regular Consistency;Thin Liquids IDDSI Level 0 Swallowing Precautions Recommendations: Alternate bites and sips;Double swallows;Feed / Eat at a slow rate;Sit upright 90 degrees for all PO;Small Bite/Sip TERRITORY SERVICE REPRESENTATIVE Recommendations: Outpatient Speech Therapy Results and Recommendations Discussed With: Patient Planned Interventions, Frequency, and Duration: Planned Treatment Interventions: Cognitive-Linguistic Training (31762, [id number], [id number]);Dysphagia Reduction Training (01627);Expressive Language Training (80073, [id number]);Voice Training ([id number]) Current Frequency: 1x/week Duration: 4 weeks PLAN FOR NEXT VISIT: swallowing exercises, voice exercises at sentence level, memory using visualization, abstract categorical naming, working memory per 5 and 6 word sentences SUBJECTIVE: Patient Reason for Visit: Patient reported that he is noticing less coughing at meals. He reported that he has not practiced daily. OBJECTIVE MEASURES WITH LEVEL OF FUNCTION: Professional training and skilled instructions were provided as follows: Neuromuscular facilitation techniques (Oral motor exercise (ROM, Strengthening, Coordination, DEEP PHARYNGEAL NEUROMUSCULAR STIMULATION) Swallowing skills Cognitive-linguistic skills Voicing Hygiene -Vocal Function Expressive language skills Swallowing therapy: Lingual exercises: 10 reps each Pharyngeal exercises: 10 reps each Laryngeal elevation/adduction exercises: 10 reps TERRITORY SERVICE REPRESENTATIVE administered DEEP PHARYNGEAL NEUROMUSCULAR STIMULATION to CN V-XII sites with iced lemon glycerine swabs x 15. Patient demonstrated strong gag response x 15, moderate lingual curling, moderate palatal lift and swallow reflexes of 2-3 seconds. Cognitive therapy: Memory using grouping strategy: Delayed recall with 70%, Immediate recall: 100% per 6 items, Delayed recall after 5 minutes: 100% per 6 items Working memory per 5 word sentences: 80% Abstract categorical namin items named in 1 minute Speech/Voice/Language Sustained ah phonation (dB) : 73.9 Sustained ah phonation (seconds) : 9.2 High Pitch Fundamental Frequency (Hz): 222.1 High Pitch Fundamental Frequency (dB SPL): 73.3 Low Pitch Fundamental Frequency (Hz): 95.8 Low Pitch Fundamental Frequency (dB SPL): 66.2 Functional Phrases: 68.1 dB SPL Phrases: 70.2 Sentences: 67.9 TREATMENT: Swallow / Dysphagia (01880): Skilled Intervention: Demonstrated, instructed, modeled and provided educational handout(s) for hyolaryngeal elevation and excursion manuevers and lingual ROM, lingual base ROM, pharyngeal ROM., Provided both written and video instruction for home exercise program to facilitate follow through with proper performance. , Provided neuromuscular reeducation of swallowing reflex via DPNS Speech/Language Therapy (40295): Skilled Intervention: Educated and instructed patient on compensatory strategies for word-finding, categorization and memory, working memory, vocal intensity Educated and instructed patient on memory recall strategies such as grouping. Provided verbal cues in vocal intensity. provided and instructed patient per home exercise program. Current Home Program: oral motor exercises, swallowing exercises, voice exercises at sentence level, memory using grouping, abstract categorical naming, working memory per 5 word sentences Billing: Speech Treatment (69211) and Dysphagia Treatment (53189) Total time / Length of visit: 60 minutes Janice Leon CCC-TERRITORY SERVICE REPRESENTATIVE documented in this encounterMer[facility] Allen [facility] Miscellaneous Notes* Addendum Note - Hero Cuellar PT - 11/10/2021 9:37 AM EDT Addended by: HERO CUELLAR on: 11/10/2021 09:37 AM Modules accepted: Orders documented in this encounterMer[facility] History of Present illness Narrative* LANEY ParkTERRITORY SERVICE REPRESENTATIVE - 11/10/2021 9:04 AM EDT Episode Visit Count: 4 Therapist That Will Oversee The Plan Of Care: Janice Leon Start of Care Date: 10/13/21 Onset Date: 10/06/21 Plan of Care Certification Date: 10/13/21 Next Certification Due Date: 12/12/21 Patient Identified by Name and Date of : Yes [facility] SPEECH THERAPY PROGRESS REPORT PLAN OF CARE UPDATE: Impression: Communication deficits identified: Expressive aphasia;Voice disorder;Cognitive deficits Swallow Deficits Identified / Suspected: Pharyngeal dysphagia Progress Toward Goals: Progressing as expected Functional gains: Improving skill related to the implementation of the taught home exercise program Goals for Episode of Care Updated: 11/10/2021 Goals for Episode of Care: created on 10/13/2021 through 12/12/21 ORAL MOTOR GOALS Patient will improve facial strength/ROM via oral motor exercises per 10-20 repetitions with good effort given no cues. CURRENT: Continues with limited facial ROM, however is completing facial ROM exercises daily per his home exercise program. NOT MET. Continue goal. Patient will increase lingual strength/ROM to WFL via lingual exercises x 10-20 repetitions with good effort given no cues in order to improve oral phase to within functional limits. CURRENT: Mild lingual weakness/tremor continues. NOT MET. Continue goal. EXPRESSIVE LANGUAGE GOALS To evaluate expressive language skills next session. MET on 10/18/2021. Patient will improve expressive language skills to WITHIN FUNCTIONAL LIMITS per higher level word retrieval tasks with 90-100% accuracy in order to communicate his thoughts/needs at home. CURRENT: Abstract categorical namin items named with extended amount of time and min assist. NOT MET. Continue goal. All goals to target the patient's overall ability to facilitate functional communication of ADL medical / social needs. COGNITIVE GOALS To evaluate cognitive skills next session. MET on 10/18/2021. Patient will improve short-term memory per immediate/delayed recall per 5-15 + items to 90 % accuracy with use of compensatory strategies in order to recall verbal/visual information. CURRENT: Memoryusing grouping strategy per 6 items: Immediate recall (100%), Delayed recall (100%). NOT MET. Continue goal. Patient will improve working memory to WITHIN FUNCTIONAL LIMITS during simple/complex cognitive tasks with 90% using compensatory strategies in order to recall the steps taken during a cognitive process. CURRENT: Working memory per 3 and 4 items (reverse): 100%, per 5 word sentences (reverse, abc, and progressive): 80%. NOT MET. Continue goal. Patient will improve information processing time to WITHIN FUNCTIONAL LIMITS divergent naming tasksby stating 20 members of an abstract category in order to process information in timely manner. CURRENT: Abstract categorical namin items named with extended amount of time and min assist. NOT MET. Continue goal. All goals to target the patient's overall ability to facilitate functional cognitive linguistic skills. SWALLOWING GOALS To further evaluate swallowing via MODIFIED BARIUM SWALLOW STUDY. MET on 11/01/2021. Discontinue goal. Patient will increase base of tongue strength to WFL via base of tongue exercises x 10-20 repetitions with good effort given no cues in order to improve propulsion of the bolus to the pharynx. CURRENT: Mild weakness noted. NOT MET. Continue goal. Patient will increase anterior hyoid ROM to WFL via hyolaryngeal / pharyngeal exercises x 10-20 repetitions with good effort given min cues improve airway protection during swallowing. CURRENT: Mild-moderate weakness noted. NOT MET. Continue goal. Patient will demonstrate WNL swallow reflex via DEEP PHARYNGEAL NEUROMUSCULAR STIMULATION x 10 in order to improve pharyngeal phase of swallowing to within functional limits. CURRENT: 2-3 seconds. NOT MET. Continue goal. Patient will tolerate regular diet with thin liquids while utilizing compensatory/swallowing strategies in 100% of trials. CURRENT: During session per thin liquids, no symptoms of aspiration were noted. Double swallows. NOT MET. Continue goal. Patient will increase laryngeal elevation to WFL via laryngeal elevation exercises x 10 repetitionswith good effort given no cues in order to improve airway protection during swallowing. CURRENT: Mild-moderate weakness noted. NOT MET. Continue goal. All goals to target the patient's overall ability to safely consume the highest appropriate diet level VOICE GOALS Patient will demonstrate sufficient respiratory support to phonate and sustain an excellent quality, LOUD ah for 20 seconds at > 75 dB SPL. (Baseline = 62.5 dB SPL @ 21 seconds) CURRENT: 74.8 dBSPL @ 9.7 seconds. NOT MET. Continue goal. Patient will increase maximum fundamental frequency at high pitch frequency while phonating an excellent quality, LOUD high pitch ah > 75 dB SPL for 5 seconds with 90% accuracy. (Baseline = 230.8 Hz @ 64.2 dB SPL moderate hoarseness) CURRENT: 244.6 Hz @ 70.8 dB SPL. NOT MET. Continue goal. Patient will increase maximum fundamental frequency at low pitch frequency while phonating a LOUD low pitch ah > 70 dB SPL for 5 seconds with 90% accuracy. (Baseline = 117 Hz @ 59.8 dB SPL) CURRENT: 127.3 Hz @ 64 dB SPL. NOT MET. Continue goal. Patient will phonate with a LOUD voice > 70 dB SPL for medical and social needs during various speech tasks at word/phrase/sentence levels with 90% of the time. (Baseline = 61.9 dB SPL) CURRENT: Functional phrases: 68.2; Words: 71.7; Phrases: 71.6. PARTIALLY MET. Continue goal. Patient will phonate with a LOUD voice > 70 dB SPL for medical and social needs during reading tasks at paragraph level for 5 minutes with 90% of the time. (Baseline = 60.6 dB SPL) NOT MET. Continue goal. Patient will increase vocal loudness when phonating with a LOUD voice > 70dB SPL for medical andsocial needs during conversation for 5 minutes with 90%. (Baseline = 60.6 dB SPL) NOT MET. Continuegoal. All goals to target the patient's overall ability to facilitate functional communication of ADL medical / social needs. RECOMMENDATION: Planned Interventions, Frequency, and Duration: Cognitive-Linguistic Training, Expressive language training Dysphagia Reduction Training Voice Training Diet Recommendations: Regular Consistency;Thin Liquids IDDSI Level 0 Swallowing Precautions Recommendations: Alternate bites and sips;Double swallows;Feed / Eat at a slow rate;No straws;Sit upright 90 degrees for all PO;Small Bite/Sip TERRITORY SERVICE REPRESENTATIVE Recommendations: Outpatient Speech Therapy Results and Recommendations Discussed With: Patient Planned Interventions, Frequency, and Duration: Planned Treatment Interventions: Cognitive-Linguistic Training (63412, 28099, 09666);Expressive Language Training (70386, 56495);Voice Training (58267);Dysphagia Reduction Training (24488) Current Frequency: 1x/week Duration: 4 weeks PLAN FOR NEXT VISIT: swallowing exercises, DPNS, voice exercises, memory using visualization/grouping, working memory per 5 word sentences, abstract categorical naming SUBJECTIVE: Patient Reason for Visit: Patient reported that he seems to coughing less on his saliva but isn't sure about during his meals. He is trying to talk louder at home. He completes his home exercises daily. OBJECTIVE MEASURES WITH LEVEL OF FUNCTION: Professional training and skilled instructions were provided as follows: Neuromuscular facilitation techniques (Oral motor exercise (ROM, Strengthening, Coordination, DEEP PHARYNGEAL NEUROMUSCULAR STIMULATION) Swallowing skills Cognitive-linguistic skills Voicing Hygiene -Vocal Function Speech/Voice/Language Sustained ah phonation (dB) : 74.8 Sustained ah phonation (seconds) : 9.7 High Pitch Fundamental Frequency (Hz): 244.6 High Pitch Fundamental Frequency (dB SPL): 70.8 Low Pitch Fundamental Frequency (Hz): 127.3 Low Pitch Fundamental Frequency (dB SPL): 64 Functional phrases: 68.2 Words: 71.7 Phrases: 71.6 Abstract categorical namin items named with extended amount of time and min assist. Working memory per 3 and 4 items (reverse): 100%, per 5 word sentences (reverse, abc, and progressive): 80% Memory using grouping strategy per 6 items: Immediate recall (100%), Delayed recall (100%) Swallowing therapy Lingual ROM exercises: 5-10 reps Lingual base ROM exercises: 5-10 reps Laryngeal elevation/adduction exercises: 5 reps Pharyngeal ROM exercises: 10 reps TERRITORY SERVICE REPRESENTATIVE administered DEEP PHARYNGEAL NEUROMUSCULAR STIMULATION to CN V-XII sites with iced lemon glycerine swabs x 18. Patient demonstrated mild-strong gag response x 15, moderate to max lingual curling,moderate to max palatal lift and swallow reflexes of 2-3 seconds. TREATMENT: Swallow / Dysphagia (45303): Skilled Intervention: Demonstrated, instructed, modeled and provided educational handout(s) for isometric lingual facilitation techniques and lingual base, pharyngeal andhyolaryngeal elevation and excursion manuevers ., Instruction provided in various swallowing manuevers which included: super-supraglottic swallow (effortful swallow) and Neeta Maneuver , Provided both written and video instruction for home exercise program to facilitate follow through with proper performance. , Provided neuromuscular reeducation of swallowing reflex via DPNS. Speech/Language Therapy (82710): Skilled Intervention: Educated and instructed patient on compensatory strategies for vocal intensity, working memory, informtion processing Educated and instructed patient on memory recall strategies such as grouping. Provided verbal cues in vocal intensity. Provided and instructed patient per home exercise program. Current Home Program: facial/lingual/lingual base/laryngeal/pharyngeal exercises, working memory per 5 word sentences, memory using grouping, abstract categorical naming Billing: Speech Treatment (02622) and Dysphagia Treatment (72010) Total time / Length of visit: 75 minutes Janice Leno CCC-TERRITORY SERVICE REPRESENTATIVE documented in this encounterMer[facility]04-07-[facility]22 History of Present illness Narrative* Hero Cuellar, PT - 11/10/2021 8:02 AM EDT Episode Visit Count: 4 Therapist That Will Oversee The Plan Of Care: Hero Cuellar Start of Care Date: 10/13/21 Onset Date: 10/10/21 REHABILITATION AND SPORTS THERAPY PHYSICAL THERAPY PROGRESS REPORT PLAN OF CARE UPDATE: Assessment: Jak Ramos demonstrates improvements in walking and physical activities. He has met strength and HEP related Goals. Patient continues to present with impairments in gait that interfere with walking . Current prognosis is Good due to: current objective clinical presentation;good overall health status . Patient verbalizes and demonstrates strong understanding of diagnosis and what he can do to minimize the progression of his PD diagnosis. He is aware of deficits in his gait (decreased left arm swing and landing with a flat foot) that he is able to improve with conscious effort and verbal cues. Foot flexor and carbon fiber AFO trialed again for L foot slap, but do not seem to make a big impact for him, as gait derivations still present with devices on. He will benefit from reassessment in 6 months to determine if he has need for further skilled physical therapy. Goals for Episode of Care: created on 10/13/21 through 12/09/21 Updated 11/10/2021 Patient will increase strength of LLE to 5/5 MMT allow patient to improve gait mechanics/gait pattern. - met Patient will demonstrate current home exercise program independently. -MET Improve five time sit to stand by 2.3 seconds to meet MCID and decrease risk of falls. -progressing 10.3 seconds Improve arm swing to WFL and normalize gait mechanics to reduce falls risk. -progressing Pt will be able to verbalize with MOD I lifestyle modifications and home exercise plan to reduce the symptoms of PD and slow progression. -Met Patient Goals: maintain best QOL, improve PD symptoms Patient Goals: maintain best QOL, improve PD symptoms Planned Interventions, Frequency, and Duration: 1 visit, (In 6 months) Total Number of Visits Planned: 1 Patient to be seen for Therapeutic exercise (89011);Neuromuscular re-education (02754);Manual therapy (55908);Therapeutic activities (57601);Self-detention management (71476);Gait Training (60285);Patient/Family/Caregiver Education;Functional training PLAN FOR NEXT VISIT: Return in 6 months to reperform outcome measures SUBJECTIVE: Patient Reason for Visit: Pt had a bout of headache and feeling off balance. Plans to discuss with snailer. Pt will be working with Dr. Galan to determine when to select medication.. Patient Goals: maintain best QOL, improve PD symptoms Functional Limitations: walking Pain: Pain Pain Level: 0 Post Treatment Pain Post Treatment Pain Level: 0 PROMIS Scales Higher is Better 10/11/2021 11/08/2021 Phys Func - Score 52 (within normal limits) 47 (within normal limits) Phys Func - Percentile 58 % 38 % Social Roles - Score 52 (within normal limits) 52 (within normal limits) Social Role - Percentile 58 % 58 % GH Physical - Score 44.9 (Good) - GH Physical - Percentile 31 % - GH Mental - Score 43.5 (Good) - GH Mental - Percentile 26 % - Self-Eff Symptom - Score 54 (Average) 46 (Average) Self-Eff Symptom - Percentile 66 % 34 % T-scores: mean of general population = 50. 5 points is clinically meaningfully difference Percentiles provide an indication of how the patient's score ranks in relation to the general population. Higher percentile rankings indicate better function/quality of life. 50th percentile is the average of the general population and indicates half of respondents had a worse score. Lower is Better 10/11/2021 11/08/2021 Fatigue - Score 47 (within normal limits) 51 (within normal limits) Fatigue - Percentile 62 % 46 % T-scores: mean of general population = 50. 5 points is clinically meaningfully difference Percentiles provide an indication of how the patient's score ranks in relation to the general population. Higher percentile rankings indicate better function/quality of life. 50th percentile is the average of the general population and indicates half of respondents had a worse score. OBJECTIVE MEASURES WITH LEVEL OF FUNCTION: LE Strength L Hip Flexion (L2): 5/5 L Knee Extension (L3): 5/5 L Ankle Dorsiflexion (L4): 5/5 Gait Gait: Modified Independent Gait Device: None Gait Observation: Minimal LUE arm swing, L foot drop with flatten foot weight acceptance Functional Performance Test Results 10 Meter Walk Test Trial 1 (seconds): 3.62 10 Meter Walk Test Average (m/sec): 1.66 5 Times Sit to Stand Test : 10.03 sec Timed Up and Go (sec): 6.98 sec Timed Up and Go Cognitive (sec): 7.77 sec Timed Up and Go Cognitive Comments: Serial 3's TREATMENT: Neuromuscular Re-Education: 1: Performed outcome measures and educated on results Skilled Intervention: Skilled judgment used to assess appropriate program for balance and coordination activity. Gait Trainin: C-mill: 1.1m/s Trials with [place] WAlk-on carbon fiber AFO and foot flexor. 15:00 minutes Skilled Intervention: Patient was provided independence during pre-gait/gait training to prevent falls and insure safety. Facilitated proper gait cycle with the use of verbal and visual cues for correction of gait deviations identified in the objective section above. Gait belt utilized during session for safety. Self-Long-Term Management: 1: Reviewed PD aerobic exercise intensity and encouraged to discuss with cardio doctor. 2: Reviewed HEP and other options for commuinty PD resources to continue aerobic activities. 3: Discussed POC and return in 6 months 4: Discussed QoL and decisions regarding starting medication with follow up with neurologist on medication pros/cons Skilled Intervention: Skilled judgment in the selection of proper modification for activity of daily living/home management based on clinical presentation, deficits, and needs. Educated the patient regarding recommendations and provided written instruction to facilitate compliance. Provided written instruction for activities of daily living techniques to facilitate proper performance and compliance. Activity progression based on professional judgement. Billing Neuromuscular Re-Education Treatment Minutes: 25 Self-Care/Home Management Treatment Minutes: 20 Gait Training Treatment Minutes: 15 Total Treatment Time Minutes (timed and untimed codes) : 60 Hero Cuellar PT documented in this encounterMer[facility]04-04-2022 Miscellaneous Notes* Telephone Encounter - Darlene Salazar - 11/07/2021 1:09 PM EDT MBS results received via fax and available to view in scanned documents. documented in this encounterMercy [facility]03-31-2022 History of Present illness Narrative* Janice Leon CCC-TERRITORY SERVICE REPRESENTATIVE - 11/03/2021 11:11 AM EDT Episode Visit Count: 3 Therapist That Will Oversee The Plan Of Care: Janice Leon Start of Care Date: 10/13/21 Onset Date: 10/06/21 Plan of Care Certification Date: 10/13/21 Next Certification Due Date: 12/12/21 Patient Identified by Name and Date of : Yes [facility] SPEECH THERAPY TREATMENT NOTE IMPRESSION: Communication deficits identified: Expressive aphasia;Voice disorder;Cognitive deficits Swallow Deficits Identified / Suspected: Pharyngeal dysphagia Diet Recommendations: Regular Consistency;Thin Liquids IDDSI Level 0 Swallowing Precautions Recommendations: Alternate bites and sips;Double swallows;Feed / Eat at a slow rate;No straws;Sit upright 90 degrees for all PO;Small Bite/Sip Results and Recommendations Discussed With: Patient PLAN: Continue speech therapy plan of care addressing cognitive, voice and swallowing skills/goals in therapy and HEP. SWALLOWING GOALS To further evaluate swallowing via MODIFIED BARIUM SWALLOW STUDY. MET 11/01/2021. Discontinue goal. Patient will increase base of tongue strength to WFL via base of tongue exercises x 10-20 repetitions with good effort given no cues in order to improve propulsion of the bolus to the pharynx. Patient will increase anterior hyoid ROM to WFL via hyolaryngeal / pharyngeal exercises x 10-20 repetitions with good effort given min cues improve airway protection during swallowing. Patient will demonstrate WNL swallow reflex via DEEP PHARYNGEAL NEUROMUSCULAR STIMULATION x 10 in order to improve pharyngeal phase of swallowing to within functional limits. Patient will tolerate regular diet with thin liquids while utilizing compensatory/swallowing strategies in 100% of trials. Patient will increase laryngeal elevation to WFL via laryngeal elevation exercises x 10 repetitionswith good effort given no cues in order to improve airway protection during swallowing. PLAN FOR NEXT VISIT: swallowing exercises, DPNS, voice therapy per word and phrase levels, cognition exercises SUBJECTIVE: Patient is reporting that he had the MODIFIED BARIUM SWALLOW STUDY on 11/01/2021. He hasstopped using straws to drink liquids, alternating bites and sips and doing double swallows. OBJECTIVE: MEASURES WITH LEVEL OF FUNCTION: Professional training and skilled instructions were provided as follows: Neuromuscular facilitation techniques (Oral motor exercise (ROM, Strengthening, Coordination) Swallowing skills Voicing Hygiene -Vocal Function Swallowing therapy: Reviewed MODIFIED BARIUM SWALLOW STUDY results, diet recommendations, swallowing precautions, compensatory swallowing strategies and areas of deficit along with new swallowing goals. Laryngeal elevation/adduction exercises: 5 reps per 3 exercises Lingual base ROM exercises: 10 reps per 4 exercises Pharyngeal/hyoid exercises: 10 reps x 3 exercises Voice therapy: Speech/Voice/Language Sustained ah phonation (dB) : 75.7 Sustained ah phonation (seconds) : 12.5 High Pitch Fundamental Frequency (Hz): 199.9 High Pitch Fundamental Frequency (dB SPL): 72.5 Low Pitch Fundamental Frequency (Hz): 118 Low Pitch Fundamental Frequency (dB SPL): 63.5 Words: 69.4 dB SPL TREATMENT: Swallow / Dysphagia (00900): Skilled Intervention: Provided education related to a typical swallowing mechanism in a compare and contrast manner compared to this patient's current skill set. , Educated and advised patient / caregiver on texture and liquid consistency recommendations., Instructed patient / caregiver on recommended compensatory strategies to maximize safety with oral intake while maintaining nutrition, hydration and medication stability. , Demonstrated, instructed, modeled and provided educational handout(s) for isometric lingual facilitation techniques and laryngeal elevation/adduction, pharyngeal and hyolaryngeal elevation and excursion manuevers ., Provided both written and video instruction for home exercise program to facilitate follow through with proper performance. Speech/Language Therapy (34684): Skilled Intervention: Educated and instructed patient on compensatory strategies for vocal intensity Provided verbal cues in vocal intensity. Provided and instructed patient per home exercise program. Current Home Program: facial/lingual/laryngeal elevation/adduction, lingual base, Billing: Treatment of Swallow Dysfunction (42860) Speech Treatment (05248) Total time / Length of visit: 45 minutes LANEY ParkTERRITORY SERVICE REPRESENTATIVE documented in this encounterMercy Health [facility]04-23-2021 NoteChief Complaint Referral per Dr. Pickett for Right Inguinal Hernia. HPI Staff 60 year old male referred by Dr. Pickett on consultation for Right Inguinal Hernia. Site was noticed on 07/29/20. Denies experiencing pain. Taking Aspirin 325 mg daily. Denies change in BMs and Urinary Symptoms. History of Present Illness 60 yo male with pacemaker, referred by Dr Pickett for right inguinal hernia; patient noticed a bulge back in July after showering, no pain or skin changes, no change in size since he first noticed it; no N/V or bowel changes; no previous abdominal operations; on regular asa daily, no NSAIDS; no tobacco use. Review of Systems PHQ Score Initial Depression Screen Score: 0 Initial Depression Screen Score: 0 ROS - Provider Constitutional: no fever, no sweats, no weight loss. Eyes: yes glasses, no blurred vision, no visual loss. ENMT: no dentures, no hoarseness, no swallowing difficulties, no hearing loss, no ear infection(s),no nose bleeds. Cardiovascular: normal blood pressure, no chest pain, regular heartbeat, no heart murmur. Respiratory: no shortness of breath, no cough, no asthma, no wheezing. Gastrointestinal: no nausea, no vomiting, no diarrhea, no constipation, no blood in stool, no change in bowel habits, no abdominal pain, no hepatitis. Genitourinary: no kidney stones, no urine infection, no dysuria. Musculoskeletal: no pain, no weakness. Skin: no changing moles, no rash, no skin lumps. Neurologic: no seizures, no epilepsy, no headache. Psychiatric: no emotional or psychiatric problem. Heme/Lymph: no bleeding problems, no anemia, no blood clots, no transfusions. Allergy/Immunologic: no swollen lymph nodes/glands, no IV drug abuse. Other: Additional ROS info: Except as noted in the above Review of Systems and in the History of Present Illness, all other systems have been reviewed and are negative or noncontributory. Physical Exam Vitals & Measurements T: 35.7 ?C (Tympanic) BP: 112/80 HT: 195.58 cm WT: 78.6 kg BMI: 20.55 HEENT: normal conjunctiva, sclera clear, no scleral icterus, EOM intact, PERRLA, oral mucosa moist without lesions. Neck: trachea midline, no mass, symmetric, no thyromegaly or nodules, no adenopathy Respiratory: lungs CTA, respirations non labored. Cardiovascular: regular rate and rhythm, no murmur, no pedal edema or varicosities. Gastrointestinal: soft, non distended, no tenderness, no masses, reducible right inguinal hernia, nontende, no palpable left inguinal hernia; diastasis recti no, no hepatosplenomegaly; normal bs Lymphatic: no cervical adenopathy, no axillary adenopathy, no inguinal adenopathy. Musculoskeletal: normal gait, digits and nails without infection, nodes, cyanosis, clubbing. Skin: no rashes, no lesions, no ulcers, no subcutaneous nodules, induration. Psychiatric/Neuro: oriented to time, place, person, judgement normal, affect appropriate for age, insight intact, no focal deficits. Tests: , review of old records completed, Discussed surgical options, risks, and possible complications with patient. Assessment/Plan 1. Right inguinal hernia (K40.90: Unilateral inguinal hernia, without obstruction or gangrene, not specified as recurrent) plan right inguinal herniorrhaphy with mesh insertion, informed consent obtained. signs/symptoms ofincarceration/strangulation of hernia explained in detail, and patient understands that he should seek prompt medical evaluation if they were to occur. Ancef 2 gms IV prior to OR SCDs Follow-up No qualifying data available Patient Education Exercising to Stay Healthy Problem List/Past Medical History Ongoing Benign prostatic hyperplasia with nocturia Lumbar spondylosis Pacemaker Paroxysmal atrial fibrillation Pure hypercholesterolemia Right inguinal hernia Symptomatic bradycardia Historical No qualifying data Procedure/Surgical History Cardiac pacemaker (08/06/2008), History of tonsillectomy (08/06/2008). Medications aspirin 81 mg oral tablet DilTIAZem (Eqv-Cardizem CD), Oral, Daily Allergies No Known Allergies Social History Tobacco Never (less than 100 in lifetime) Tobacco Use:. Never Smokeless Tobacco Use:., 11/26/2020 Family History Diabetes mellitus type II: Father. Heart disease: Father. Immunizations Vaccine Date Status Comments SARS-CoV-2 (COVID-19) mRNA-1273 vaccine - Not Given [facility]Result Comment: Electronically Signed By: SNEHA TAFOYA, Tyree Buckley\Date and Time Signed: 11/26/20 09:41 EDT 08-06-2008 History general Narrative - Reported* Type Description Date Medical History pacemaker august 2008 Medical History Has a tremor Medical History Hypercholesterolemia Medical History Benign non-nodular p rostatic hyperplasia with lower urinary tract symptoms Medical History Paresthesia Medical History Cardiac pacemaker Medical History Migraine Medical History Inguinal hernia of r ight side without obstruction or gangrene Medical History Paroxysmal atrial fibrillation Medical History Bradycardia, unspecified Medical History UNILATERAL HEADACHE Surgical History pacemaker August 2008 Surgical History tonsillectomy Childhood Surgical History REPAIR ING HERNIA, SLIDING 2020 Surgical History TCAT INSJ/RPL PERM LDLS 2008 Hospitalization History pacemaker August 2008 Hospitalization History SEE SURGICAL HX [facility] Other Evaluation note* 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) Unspecified persistent mental disorders due to conditions classified elsewhere Pharyngeal dysphagia Dysphagia, pharyngeal phase PD (Parkinson's disease) (HCC) Paralysis agitans [facility] [place] [facility] Diagnosis Abnormality of gait- Primary PD (Parkinson's disease) (HCC) Paralysis agitans documented [facility] [place] [facility]* 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) Unspecified persistent mental disorders due to conditions classified elsewhere Pharyngeal dysphagia Dysphagia, pharyngeal phase PD (Parkinson's disease) (HCC) Paralysis agitans documented [facility] [place] [facility]* 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 note* Diagnosis PD (Parkinson's disease) (HCC)- Primary Paralysis agitans [facility] Diagnosis PD (Parkinson's disease) (HCC)- Primary Paralysis agitans Neuropathy, peripheral, hereditary Hereditary peripheral neuropathy [facility] [place] [facility] Diagnosis PD (Parkinson's disease) (HCC)- Primary Paralysis agitans [facility] [place] [facility]* Diagnosis PD (Parkinson's disease) Paralysis agitans documented in [facility] Summary Purpose Family History No Family History Records FoundNo Family History Records FoundNo Family History Records FoundNo Family History Records FoundNo Family History Records Found Advance Directives No Advanced Directives Records FoundNo Advanced Directives Records FoundNo Advanced Directives Records FoundNo Advanced Directives Records FoundNo Advanced Directives Records Found Reason for Referral Specialty Diagnoses / Procedures Referred By Lyubov marks Referred To Contact [facility] Diagnoses Abnormality of gait PD (Parkinson's disease) ([facility]) Procedures PT REHAB FOLLOW UP ORDER THERAPEUTIC EXERCISES RE, EA 15 MIN. 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 disease ([facility]) Hypokinetic Parkinsonian dysphonia (HCC) Pharyngeal dysphagia PD (Parkinson's disease) ([facility]) Procedures SPEECH REHAB FOLLOW UP ORDER TX SPEECH LANG VOICE COMMJ &/AUDITORY PROC IND Tremayne Gibson, DO [address] [place] [address] [facility] [address] [address] Referral ID Status Reason Start Date Expiration Date V isits Requested Visits Authorized [id number] Closed PCP Requested Referral Auto-Generated Referral 12/01/2021 03/01/2022 1 1 Specialty Diagnoses / Procedures Referred By Lyubov marks Referred To Contact Diagnoses PD (Parkinson's disease) ([facility]) Procedures PROVIDER ORDERED FOLLOW UP OFFICE/OUTPATIENT NEW HIGH MDM 60-74 MINUTES Tremayne Gibson DO [address] [place] [address] Referral ID Status Reason Start Date Expiration Date V isits Requested Visits Authorized [id number] Authorized 07/01/2022 09/29/2022 1 1 Referral ID Status Reason Start Date Expiration Date V isits Requested Visits Authorized [id number] Authorized 03/08/2023 06/06/2023 1 1 Specialty Diagnoses / Procedures Referred By Lyubov marks Referred To Contact [facility] Diagnoses PD (Parkinson's disease) ([facility]) Procedures CONSULT TO PHYSICAL THERAPY PHYSICAL THERAPY EVALUATION HIGH COMPLEX 45 MINS Tremayne Gibson DO [address] [place] [address] [facility] [place] [address] [place] [id number] Referral ID Status Reason Start Date Expiration Date Visits Requested Visits Authorized [id number] Pending Review Auto-Generat ed Referral 12/15/2022 11/23/2023 1 1 Additional Source Comments (unrecognized sect ion and content) No Status Records FoundNo Status Records FoundNo Status Records FoundNo Status Records FoundNo Status Records Found INFORMATION SOURCE (unrecogn ized section and content) DATE CREATED AUTHOR 02/11/2021 [facility] DATE CREATED AUTHOR AUTHOR'S ORGANIZ ATION 09/09/2022 [facility] DATE CREATED AUTHOR AUTHOR'S ORGANIZ ATION 10/10/2022 [facility] DATE CREATED AUTHOR AUTHOR'S ORGANIZ ATION 04/04/2023 [facility] DATE CREATED AUTHOR AUTHOR'S ORGANIZ ATION 05/13/2023 [facility] Source Comments (unrecognize d section and content) In the event this informatio n is protected by the Federal Confidentiality of Alcohol and Drug Abuse Patient Records regulations: The Federal rules restrict any use of the information to criminally investigate or prosecute any alcohol or drug abuse patient.[facility] the event this information is protected by the Federal Confidentiality of Alcohol and Drug Abuse Patient Records regulations: The Federal rules restrict any use of the information to criminally investigate or prosecute any alcohol or drug abuse patient.[facility] Hospital[facility] the event this information is protected by the Federal Confidentiality of Alcohol and Drug Abuse Patient Records regulations: The Federal rules restrict any use of the information to criminally investigate or prosecute any alcohol or drug abuse patient.[facility] Hospital[facility] the event this information is protected by the Federal Confidentiality of Alcohol and Drug Abuse Patient Records regulations: The Federal rules restrict any use of the information to criminally investigate or prosecute any alcohol or drug abuse patient.[facility] Hospital[facility] the event this information is protected by the Federal Confidentiality of Alcohol and Drug Abuse Patient Records regulations: The Federal rules restrict any use of the information to criminally investigate or prosecute any alcohol or drug abuse patient.[facility] Hospital[facility] the event this information is protected by the Federal Confidentiality of Alcohol and Drug Abuse Patient Records regulations: The Federal rules restrict any use of the information to criminally investigate or prosecute any alcohol or drug abuse patient.[facility] HospitalIn the event this information is protected by the Federal Confidentiality of Alcohol and Drug Abuse Patient Records regulations: The Federal rules restrict any use of the information to criminally investigate or prosecute any alcohol or drug abuse patient.[facility] HospitalIn the event this information is protected by the Federal Confidentiality of Alcohol and Drug Abuse Patient Records regulations: The Federal rules restrict any use of the information to criminally investigate or prosecute any alcohol or drug abuse patient.[facility] HospitalIn the event this information is protected by the Federal Confidentiality of Alcohol and Drug Abuse Patient Records regulations: The Federal rules restrict any use of the information to criminally investigate or prosecute any alcohol or drug abuse patient.[facility] HospitalIn the event this information is protected by the Federal Confidentiality of Alcohol and Drug Abuse Patient Records regulations: The Federal rules restrict any use of the information to criminally investigate or prosecute any alcohol or drug abuse patient.[facility] HospitalIn the event this information is protected by the Federal Confidentiality of Alcohol and Drug Abuse Patient Records regulations: The Federal rules restrict any use of the information to criminally investigate or prosecute any alcohol or drug abuse patient.[facility] Reason for Visit (unrecogniz ed section and content) Congestion, COVID Negative Reason Comments Speech Progress Note Specialty Diagnoses / Procedures Referred By Lyubov t Referred To Contact [facility] Diagnoses PD (Parkinson's disease) (HCC) Procedures CONSULT TO SPEECH THERAPY OFFICE/OUTPATIENT [facility] HIGH MDM 60-74 MINUTES EVAL SPEECH SOUND PRODUCT LANGUAGE COMPREHENSION TX SPEECH LANG VOICE COMMJ &/AUDITORY PROC IND Tremayne Gibson, DO [address] [place] [address] Speech [facility] [address] [address] Referral ID Status Reason Start Date Expiration Date Visits Requested Visits Authorized [id number] Authorized Auto-Generat ed Referral 10/07/2021 08/05/2022 30 30 Reason Comments Speech Therapy Reason Comments Physical Therapy PT Progress Note Specialty Diagnoses / Procedures Referred By Lyubov t Referred To Contact PHYSICAL THERAPY Diagnoses PD (Parkinson's disease) ([facility]) Procedures CONSULT TO PHYSICAL THERAPY PHYSICAL THERAPY EVALUATION HIGH COMPLEX 45 MINS THERAPEUTIC EXERCISES RE, EA 15 MIN. Tremayne Gibson, DO [address] [place] [address] [address] Referral ID Status Reason Start Date Expiration Date Visits Requested Visits Authorized [id number] Authorized Auto-Generat ed Referral 10/07/2021 08/05/2022 30 30 Reason Comments Speech Progress Note Specialty Diagnoses / Procedures Referred By Lyubov t Referred To Contact [facility] Diagnoses PD (Parkinson's disease) ([facility]) Procedures CONSULT TO SPEECH THERAPY OFFICE/OUTPATIENT NEW HIGH MDM 60-74 MINUTES EVAL SPEECH SOUND PRODUCT LANGUAGE COMPREHENSION TX SPEECH LANG VOICE COMMJ &/AUDITORY PROC IND Tremayne Gibson, DO [address] [place] [address] [address] Reason Comments Results MBS Reason Comments Established Patient Tremor Tremors little worse Numbness in both feet mostly left Specialty Diagnoses / Procedures Referred By Lyubov marks Referred To Contact Diagnoses PD (Parkinson's disease) ([facility]) Procedures PROVIDER ORDERED FOLLOW UP OFFICE/OUTPATIENT NEW HIGH MDM 60-74 MINUTES Tremayne Gibson, DO [address] [place] [address] Referral ID Status Reason Start Date Expiration Date Visits Re quested Visits Authorized [id number] Closed 07/01/2022 09/29/2022 1 1 Reason Comments Forms Reason Comments Follow Up Specialty Diagnoses / Procedures Referred By Lyubov marks Referred To Contact Diagnoses PD (Parkinson's disease) Procedures PROVIDER ORDERED FOLLOW UP OFFICE/OUTPATIENT [facility] 60-74 MINUTES Tremayne Gibson DO [address] [place] [address] Referral ID Status Reason Start Date Expiration Date Visits Re quested Visits Authorized [id number] Closed 03/08/2023 06/06/2023 1 1 FOR RECORDS PERTAINING TO PATIENTS WHO ARE OR HAVE BEEN ENROLLED IN A CHEMICAL DEPENDENCY/SUBSTANCEABUSE PROGRAM, SOME INFORMATION MAY BE OMITTED. This clinical summary was aggregated from multiple sources. Caution should be exercised in using it in the provision of clinical care. This summary normalizes information from multiple sources, and as a consequence, information in this document may materially change the coding, format and clinical context of patient data. In addition, data may be omitted in some cases. CLINICAL DECISIONS SHOULD BE BASED ON THE PRIMARY CLINICAL RECORDS. [employer] [facility]. provides no warranty or guarantee of the accuracy or completeness of information in this document.
== END 2023-10-03 08:32 | disposition home or self-care (01) ==
LOC: CT 08:31
PROVIDERS: PCP Internal Medicine; Visit Provider Nurse Practitioner
DX: I77.819 Aortic ectasia, unspecified site (principal)
CPT/HCPCS: 71275; Q9967

== ENCOUNTER 2024-06-24 10:00 | Outpatient (OUT) | payer OTHER, SELFPAY ==
--- OUTSIDE RECORDS SUMMARY | 2024-06-24 10:12 | XMS_ITS | CCD ---
Author Organization [facility] Care Team Providers Care Mill Supervisor Name Role Phone Unavailable Primary Care Provider Sherlyn PICKETT, DR HANNAH Admitting Unavailable AKCY, DR HANNAH Attending Unavailable KACY, DR HANNAH Primary Care Unavailable KACY, DR HANNAH Consulting Unavailable MISC, DR HU Admitting Unavailable MISC, DR HU Attending Unavailable KACY, DR HANNAH Primary Care Unavailable MISC, DR HU Consulting Unavailable ZIEBER, DR MAMIE Contreras Consulting Unavailable Tabby Lindo Unavailable Taras Pickett Unavailable Unavailable Primary Care Provider Unavailkayleigh e Unavailable Primary Care Provider UnavailMT Liriano Attending Unavailable EYAL RAE Referring Unavailable EYAL RAE Referring Unavailable SATHISH BROOKE Attending Unavailable Taras Pickett DO Primary Care Provider TREMAYNE GIBSON Attending Unavailable TREMAYNE GIBSON Referring Unavailable TREMAYNE GIBSON Attending Unavailable Medications Current Medications Medication Drug Class(es) Dates Sig (Normalized) Sig (Original) aspirin 325 mg oral tablet (20 sources) Platelet Aggregation Inhibitor, Nonsteroidal Anti-inflammatory Drug take 1 tablet by mouth once daily aspirin 325 mg tablet Take 325 mg by mouth once daily. Active Comment on above: Take 325 mg by mouth once daily. atorvastatin 40 mg oral tablet (1 source) HMG-CoA Reductase Inhibitor take 1 tablet by mouth once daily atorvastatin (LIPITOR) 40 mg tablet Take 40 mg by mouth once daily. Active benzonatate 100 mg oral capsule (2 sources) Non-narcotic Antitussive Start: 08-10-2023 take 1 capsule by mouth every eight hours Benzonatate 100 MG 1 capsule as needed Orally Three times a day for 10 days Aug, Active carbidopa 25 mg / levodopa 100 mg oral tablet (20 sources) Aromatic Amino Acid Decarboxylation Inhibitor, Aromatic Amino Acid Start: 01-31-2024 End: 05-03-2024 take 1 tablet by mouth four times daily carbidopa-levodop a (SINEMET) 25-100 mg per tablet Indications: PD (Parkinson's disease) ([facility]) Take 1 tablet by mouth four times daily. 10 tablet 05/03/2024 Active Start: 10-03-2022 take 1 tablet by bushra th every eight hours Sinemet 10-100 MG 1 tablet Orally Three times a day for 30 days Sep, Active Start: 12-29-2021 End: 11-14-2024 take 1 tablet by mouth three times daily carbidopa-levodopa (SINEMET) 25-100 mg per tablet Indications: PD (Parkinson's disease) ([facility]) Take 1 tablet by mouth three times a day. 270 tablet 3 11/15/2023 01/30/2024 Discontinued Carbidopa-Levodo pa 25-100 MG TAKE 1 TABLET BY MOUTH THREE TIMES A DAY FOR 30 DAYS for 90 days replaces previous script sent Active Comment on above: Take 1 tablet by buhsra th three times daily. Take 1 tablet by bushra th three times a day. 24 hr dilTIAZem hydrochloride 240 mg extended release oral capsule (20 sources) Calcium Channel Eugenio take 1 capsule by mouth once daily, then take 1 capsule by mouth every twenty-four hours dilTIAZem CR (TIAZAC,TAZTIA XT) 240 mg 24 hr capsule Take 240 mg by mouth once daily. Active Comment on above: Take 240 mg [...] unspecified site] Onset: 04-03-2023 Chronic Cardiac dysrhythmias (11 sources) Paroxysmal atrial fibrillation; Translations: [Paroxysmal atrial fibrillation] Onset: 04-03-2023 Chronic Cardiac dysrhythmias (6 sources) Bradycardia; Translations: [Bradycardia, unspecified] Episodic Chronic kidney disease (3 sources) Chronic kidney disease stage 3; Translations: [Chronic kidney disease, stage 3 unspecified] Onset: 05-06-2018 Chronic Chronic obstructive pulmonary disease and bronchiectasis (3 sources) Bronchitis; Translations: [Bronchitis NOS] Episodic Conduction disorders (14 sources) Presence of cardiac pacemaker; Translations: [Cardiac pacemaker] Onset: 04-03-2023 Chronic Diseases of mouth; excluding dental (3 sources) Excessive salivation; Translations: [Disturbances of salivary secretion] Onset: 05-29-2024 11-15-2023 Episodic Disorders of lipid metabolism (15 sources) Hypercholesterolemi a; Translations: [Pure hypercholesterolemi a, [...] lumbosacral region] Episodic Other nervous system disorders (17 sources) Hereditary peripheral neuropathy; Translations: [Hereditary and idiopathic neuropathy, unspecified] Onset: 10-06-2021 10-06-2021 Chronic Other nervous system disorders (3 sources) [...] cognition; Translations: [Parkinson's disease] Onset: 10-06-2021 Chronic Residual codes; unclassified (2 sources) REM sleep behavior disorder; Translations: [REM sleep behavior disorder] 11-15-2023 Chronic Residual codes; unclassified (1 source) REM sleep behavior disorder; Translations: [RBD (REM behavioral disorder)] Onset: 05-29-2024 Chronic Spondylosis; intervertebral disc disorders; other back problems (3 sources) Lumbosacral spondylosis without myelopathy; Translations: [Spondylosis without myelopathy or radiculopathy, lumbar region] Chronic Syncope (1 source) Syncope and collapse Episodic Unclassified (12 sources) Parkinson's disease; Translations: [PD (Parkinson's disease)] Onset: 10-06-2021 05-10-2023 Chronic Unclassified (1 source) Aneurysm of the ascending aorta, without rupture; Translations: [Aneurysm of the ascending aorta, without rupture] Onset: 04-16-2024 Unclassified (1 source) PD (Parkinson's disease) ([facility]); Translations: [PD (Parkinson's disease) (HCC)] Onset: 10-06-2021 Past or Other Problems Problem Classification Problem Date Documented Da te Episodic/Chronic Noninfectious gastroenteritis (3 sources) Non-infective enteritis and colitis; Translations: [Noninfective gastroenteritis and colitis, unspecified] Onset: 11-17-2014 Episodic Other gastrointestinal disorders (19 sources) Pharyngeal dysphagia; Translations: [Dysphagia, pharyngeal phase] Onset: 10-13-2021 Episodic Other gastrointestinal disorders (4 sources) Dysphagia, pharyngeal phase; Translations: [DYSPHAGIA PHARYNGEAL PHASE] Onset: 11-01-2021 Episodic Other nervous system disorders (17 sources) Abnormal gait; Translations: [Unspecified abnormalities of gait and mobility] Onset: 10-14-2021 10-14-2021 Episodic Other upper respiratory disease (6 sources) Hypokinetic parkinsonian dysphonia; 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] Onset: 10-13-2021 10-13-2021 Episodic Other upper respiratory infections (10 sources) Acute maxillary sinusitis; Translations: [Acute maxillary sinusitis, unspecified] Onset: 11-17-2014 Episodic Spondylosis; intervertebral disc disorders; other back problems (3 sources) Low back pain; Translations: [Low back pain, unspecified] Onset: 09-25-2016 Episodic Unclassified (1 source) Persistent cough R05.3 Unclassified (1 source) Acute cough R05.1 Unclassified (1 source) Aneurysm of the ascending aorta, without rupture; Translations: [Aneurysm of the ascending aorta, without rupture] Onset: 04-16-2024 Results Test Name Value Interpretation Reference Range Facility [facility] 05-29-2024 CNOV Office Visit (NRESAV ) -------- JAK RAMOS ([id number]) 1960 M Date Time Provider Department 05/29/24 1:00 PM TREMAYNE GIBSON NRESAV During your visit today, we recorded the following information about you: Pulse Blood pressure 74/minute 141/85 Tremayne Gibson DO 05/29/2024 1:39 PM Signed [facility] - FOLLOW UP EVALUATION Taras Pickett DO [address] [facility] [address] Dear Taras Pickett, DO: I had the pleasure of seeing Mr. Ramos for follow-up today. As you know he is a 64 year old male with a history of PD since 2021. He is seen alone. Subjective Previous Plan Increase Sinemet QID Defer botulinum toxin (Myobloc) injections for Pd (parkinson's disease) for sialorrhea Hold benzodiazepines (BZDs) for Rbd (rem behavioral disorder) Interval History: The patient notes no change to the PD. He saw cardiology who recommended he start a statin. He was hesitant since there was a potential concern for PD he read about. Has not started it yet. He is still exercising with PT. The patient denies dopaminergic medication-related motor complications. The patient denies to peak-dose dyskinesias (levodopa-induced dyskinesias - LID). The patient denies wearing-off dyskinesia. The patient denies dystonia associated with levodopa use. The patient denies any dry mouth from levodopa use. The patient denies levodopa-associated nausea nor dyspepsia. The patient denies on-off phenomena. The amount of off time reported by the patient is minimal. Some drooling at night - not a major problem. He notes less RBD (REM behavioral disorder) problems. The patient denies any recent illness or [...] others. The patient denies any new pain. Movement Disorders Medications Schedule - as of the start of the visit: Medications 7A 10A 1P 4P Sinemet 25/100 1 1 1 1 Last PT Visit: 11/10/2021 (with Hero Cuellar) for Gait Abnormality Last ST Visit: 12/08/2021 (with Janice Leon) for Gait Abnormality Questionnaires: In addition, the following areas that may be affected by abnormal involuntary movements were evaluated: Daily activities Difficulties with eatin (none) Difficulties in dressin (none) Difficulties with hygiene activities: 0 (none) Difficulties with handwriting: Yes (slight) Difficulties with doing hobbies and other activities: 0 (none) Difficulties turning in bed: 0 (none) Difficulties getting out of bed, car or chair: 0 (none) Tremors/Gait/Balance Shaking or tremors: Yes (slight) Walking and balance problems: 0 (none) Number of falls in the Last Month: none Gait freezin (none) Autonomic/Pain Lightheadeness on standing: Yes (slight) Urinary problems: 0 (none) Constipation problems: Yes (slight) Pain and other sensations: 0 (none) Speech/Swallowing Speech problems: Yes (slight) Drooling: Yes (mild) Chewing and swallowing problems: 0 (none) Sleep/Fatigue Sleep problems: 0 (none) Daytime sleepiness: 0 (none) Fatigue: Yes (slight) Mood/Behavior Depression: PHQ-9 Score: 0 usually representing no significant (0-4) depression. Anxiety: JUAN C-7 Total Score: 0 usually representing no significant (0-4) anxiety. Finally, the following table shows the patient's overall global physical and mental health using the PROMIS scale: PROMIS-10 Flowsheet Row Office Visit from 05/29/2024 in Neurology Office Visit from 11/15/2023 in Neurology Global Physical Health T Score 57.7 61.9 Global Mental Health T Score 62.5 56 0-10 Standard Pain Scale 5 5 *PROMIS-10 scoring scale: mean = 50, over 50 is above average, under 50 is below average ALLERGIES No Known Allergies Current Outpatient Medications Medication Sig atorvastatin (LIPITOR) 40 mg tablet Take 40 mg by mouth once daily. carbidopa-levodopa (SINEMET) 25-100 mg per tablet Take 1 tablet by mouth four times daily. dilTIAZem CR (TIAZAC,TAZTIA XT) 240 mg 24 hr capsule Take 240 mg by mouth once daily. aspirin 325 mg tablet Take 325 mg by mouth once daily. No current facility-administered medications for this visit. Objective Vital Signs: BP 141/85 (BP Site: Left Arm, BP Position: Sitting, BP Cuff Size: Regular Adult) Pulse 74 Orthostatic Vitals: None for this encounter No LMP for male patient. There is no height or weight on file to calculate BMI. General Physical Examination: G (more content not included)... [facility] Telephone ([facility]) -------- JAK RAMOS ([id number]) 1960 M Date Time Provider Department 05/03/24 CRISTINA ROSAS FVDONY During your visit today, we recorded the following information about you: Cristina Rosas DO 05/03/2024 12:42 PM Signed Patient called stating he was out of town and needed 10 pills of Sinemet to [facility] in [place]. Refill ordered Allergies As of Date: 05/03/2024 (No Known Allergies) Date Reviewed: 11/15/2023 Reviewed by: Ana Hart LPN - Fully Assessed Visit Diagnosis:PD (Parkinson's disease) ([facility]) [G20.A1] Order(s):carbidopa-levod opa (SINEMET) 25-100 mg per tabletTake 1 tablet by mouth four times daily.Disp: 10 tabletRfl: 0 Prescriptions as of 05/03/2024 - carbidopa-levodopa (SINEMET) 25-100 mg per tablet Take 1 tablet by mouth four times daily. - dilTIAZem CR (TIAZAC,TAZTIA XT) 240 mg 24 hr capsule Take 240 mg by mouth once daily. - aspirin 325 mg tablet Take 325 mg by mouth once daily. 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 Medications Discontinued During This Encounter Prescriptions - carbidopa-levodopa (SINEMET) 25-100 mg per tablet (Discontinued) Take 1 tablet by mouth four times daily. Encounter Status:Closed by CRISTINA ROSAS on 05/03/24 [facility] 37on 04-16-2024 37 Start taking lipitor 40 mg daily in the evening or prior to bed. Call the office if any muscle aches or concerns. Have follow up labs drawn in 2-3 months (June or July). Must be fasting labs. Normal [facility] Office Visiton 04-16-2024 Follow-up visit [id number] Jurgen Ramos farideh Grant 1960 M Date Provider Department Center 04/16/2024 [id number] BROOKE ADRIANO [facility] No family history on file Level of Service:52161 RI OFFICE/OUTPATIENT ESTABLISHED MOD MDM 30 MIN [facility] CNOVon 11-15-2023 CNOV Office Visit (NRESAV ) -------- JAK RAMOS ([id number]) 1960 M Date Time Provider Department 11/15/23 11:00 AM TREMAYNE GIBSON NRESAV During your visit today, we recorded the following information about you: Pulse Blood pressure 106/minute 141/75 Tremayne Gibson, DO 11/15/2023 11:55 AM Signed [facility] - FOLLOW UP EVALUATION Jak Ramos is a 63 year old male with a history of PD. He is seen with his . Interval History Since Last Visit: Migraines are better. The patient has more tremor. He is exercising with a PD group 2x weekly. No falls. The variety of exercises has been changing - doing better overall. Parkinson's Medications Schedule: Medications 6A 10A 245P Sinemet 25/100 1 1 1 Previous Parkinson's Medications: None In addition, the following Parkinson-associated features were evaluated: Daily activities Difficulties with eatin (none) Difficulties in dressing: Yes (slight) - needs to be cautious with putting pants on Difficulties with hygiene activities: 0 (none) Difficulties with handwritin (none) Difficulties with doing hobbies and other activities: 0 (none) Difficulties turning in bed: 0 (none) Difficulties getting out of bed, car or chair: Yes (slight) -0 he needs to push up from a chair Tremors/Gait/Balance Shaking or tremors: Yes (slight) Walking and balance problems: 0 (none) Gait freezin (none) Autonomic/Pain Lightheadeness on standing: Yes (slight) Urinary problems: Yes (slight) - unchanged Constipation problems: Yes (slight) - unchanged; he has not used the Miralax Pain and other sensations: 0 (none) Speech/Swallowing Speech problems: Yes (mild) - more hypophonia Drooling: Yes (mild) - worse; more frequent Chewing and swallowing problems: 0 (none) Sleep/Fatigue Problems sleeping at night: 0 (none) Daytime sleepiness: Yes (slight) Fatigue: 0 (none) REM sleep behavior disorder: No Mood/Behavior/Cognition Cognitive impairment: No Hallucinations and delusions: No Apathy: No Depression: PQH-9 = 0 usually representing no significant (0-4) depression. Anxiety: JUAN C-7 = 0 usually representing no significant (0-4) anxiety. Finally, the following table shows the patient's overall global physical and mental health using the PROMIS scale relative to the previous visit: PROMIS-10 Flowsheet Row Office Visit from 11/15/2023 in Neurology Office Visit from 05/10/2023 in Neurology Global Physical Health T Score 61.9 57.7 Global Mental Health T Score 56 62.5 0-10 Standard Pain Scale 5 5 *PROMIS-10 scoring scale: mean = 50, over 50 is above average, under 50 is below average Allergies: ALLERGIES No Known Allergies Current Medications: Current Outpatient Medications Medication Sig dilTIAZem CR (TIAZAC,TAZTIA XT) 240 mg 24 hr capsule Take 240 mg by mouth once daily. aspirin 325 mg tablet Take 325 mg by mouth once daily. carbidopa-levodopa (SINEMET) 25-100 mg per tablet Take 1 tablet by mouth three times a day. No current facility-administered medications for this visit. Objective: Vital Signs: BP 141/75 (BP Site: Left Arm, BP Position: Sitting, BP Cuff Size: Regular Adult) Pulse 106 SpO2 97% General Medical Examination: General Description of Patient: [...] Left pathological reflexes: Rashel's absent. Coordination Right: [id number] normal. Rapid alternating movement normal.Left: Dozeai-zo-esih normal. Rapid alternating movement normal. Gait Casual gait: Normal stance. Reduced stride length. Normal gait. Normal right arm swing. Reduced left arm swing. Normal pull test. Able to rise from chair without using arms. The patient did not require assistive devices to ambulate. Parkinson's Scales Performed: MDS-UPDRS Motor subscale condition of exam Medication Off/On/Naiive ON Time of UPDRS 1137 Time of Last Medication 0830 Last Medication Taken Sinemet 25/100 DBS Right DBS Left MDS (more content not included)... Normal [facility] 36on 10-05-2023 36 Regarding CTA chest performed on 10/03/2023: BECKY Dietz MA It is stable, 4.2cmx4.2cm, we will ct to monitor Patient informed. Normal [facility] Office Visiton 09-26-2023 Follow-up visit [id number] Jurgen Ramos 1960 M Date Provider Department Center 09/26/2023 Mark6-MT BAJWA [facility] No family history on file Level of Service:45887 RI OFFICE/OUTPATIENT ESTABLISHED MOD MDM 30 MIN Normal [facility] CBC AUTO DIFFon 10-03-2022 BASO # 0.0 103/ul Normal 0.0-0.[address] [facility] Comment on above: Performed By: #### C BC #### [facility] [address] [place] [address] Dr. Rosalio Burks Basophils/100 WBC (Bld) 0.3 % Normal 0.2-2.[address] [facility] Comment on above: Performed By: #### C BC #### [facility] [address] [place] [address] Dr. Rosalio Burks EO # 0.1 103/ul Normal 0.0-0.[address] [facility] Comment on above: Performed By: #### C BC #### [facility] [address] [place] [address] Dr. Rosalio Burks Eosinophils/100 WBC (Bld) 1.0 % Normal 0.9-7.[address] [facility] Comment on above: Performed By: #### C BC #### [facility] [address] [place] [address] Dr. Rosalio Burks Erythrocyte distribution width (RBC) [Ratio] 11.7 % Normal 11.0-15.[address] [facility] Comment on above: Performed By: #### C BC #### [facility] [address] [place] [address] Dr. Rosalio Burks Hematocrit (Bld) [Volume fraction] 43.2 % Normal 42.0-54.[address] [facility] Comment on above: Performed By: #### C BC #### [facility] [address] [place] [address] Dr. Rosalio Burks Hemoglobin (Bld) [Mass/Vol] 15.0 g/dL Normal 14.0-18.[address] [facility] Comment on above: Performed By: #### C BC #### [facility] [address] [place] [address] Dr. Rosalio Burks IG # 0.02 10e3/ul Normal 0.00-0.[address] [facility] Comment on above: Performed By: #### C BC #### [facility] [address] [place] [address] Dr. Rosalio Burks IG % 0.3 % Normal 0.0-0.[address] [facility] Comment on above: Performed By: #### C BC #### [facility] [address] [place] [address] Dr. Rosalio Burks LYMPH # 1.5 103/ul Normal 1.2-3.[address] [facility] Comment on above: Performed By: #### C BC #### [facility] [address] [place] [address] Dr. Rosalio Burks Lymphocytes/100 WBC (Bld) 23.3 % Normal 20.5-60.[address] [facility] Comment on above: Performed By: #### C BC #### [facility] [address] [place] [address] Dr. Rosalio Burks MANUAL DIFF REQ NO Normal [facility] Comment on above: Performed By: #### C BC #### [facility] [address] [place] [address] Dr. Rosalio Burks MCH (RBC) [Entitic mass] 31.9 pg Normal 25.9-34.[address] [facility] Comment on above: Performed By: #### C BC #### [facility] [address] [place] [address] Dr. Rosalio Burks MCHC (RBC) [Mass/Vol] 34.7 g/dL Normal 29.9-35.[address] [facility] Comment on above: Performed By: #### C BC #### [facility] [address] [place] [address] Dr. Rosalio Burks MCV (RBC) [Entitic vol] 91.9 fL Normal 80.0-94.[address] [facility] Comment on above: Performed By: #### C BC #### [facility] [address] [place] [address] Dr. Rosalio Burks MONO # 0.6 103/ul Normal 0.3-0.[address] [facility] Comment on above: Performed By: #### C BC #### [facility] [address] [address] [address] Rosalio Burks Monocytes/100 WBC (Bld) 10.1 % Normal 1.7-12.[address] [facility] Comment on above: Performed By: #### C BC #### [facility] [address] [address] [address] Rosalio Burks NEUT # 4.0 103/ul Normal 1.4-6.[address] [facility] Comment on above: Performed By: #### C BC #### [facility] [address] [place] [address] Dr. Rosalio Burks Neutrophils/100 WBC (Bld) 65.0 % Normal 43.0-75.[address] [facility] Comment on above: Performed By: #### C BC #### [facility] [address] [place] [address] Dr. Rosalio Burks Platelet mean volume (Bld) [Entitic vol] 10.3 fL Normal 9.5-13.[address] [facility] Comment on above: Performed By: #### C BC #### [facility] [address] [place] [address] Dr. Rosalio Burks PLT 268 103/ul Normal 150-450 [facility] Comment on above: Performed By: #### C BC #### [facility] [address] [place] [address] Dr. Rosalio Burks RBC 4.70 106/ul Normal 4.70-6.10 [facility] Comment on above: Performed By: #### C BC #### [facility] [address] [place] [address] Dr. Rosalio Burks WBC 6.2 103/ul Normal 4.0-11.0 [facility] Comment on above: Performed By: #### C BC #### [facility] [address] [place] [address] Dr. Rosalio Burks Complete Blood Count and Dif gerald 10-03-2022 Anisocytosis Ql (Bld) [employer] Other Basophilic stippling LM Ql (Bld) [employer] Other RBC morphology finding Nom (Bld) [employer] Other Complete Blood Count and Diff [employer] Other Comprehensive Metabolic Pane laura 10-03-2022 Albumin [Mass/Vol] 3.719299 g/dL 3.4-5.0 g/dL [employer] Other Calcium [Mass/Vol] 9.8187132 mg/dL 8.5-10.1 mg/dL [employer] Other CO2 [Moles/Vol] 30.94299672 mmol/L 21.0-3 2.0 mmol/L [employer] Other Creatinine [Mass/Vol] 1.21614053 mg/dL 0.70-1.30 mg/dL [employer] Other Potassium [Moles/Vol] 4.53974350 mmol/L 3.5-5.1 mmol/L [employer] Other Protein [Mass/Vol] 7.440867 g/dL 6.4-8.2 g/dL [employer] Other Urea nitrogen [Mass/Vol] 17.2059512 mg/dL 7.0-18.0 mg/dL [employer] Other Comprehensive Metabolic Panel see note [employer] Other Comprehensive Metabolic Panel 141 mmol/L 136-145 mmol/L [employer] Other Comprehensive Metabolic Panel 83 mg/dL 74-106 mg/dL [employer] Other Comprehensive Metabolic Panel >60 mL/min/1.73m2 >=60 mL/min/1.73m2 [employer] Other Comprehensive Metabolic Panel 0.3 mg/dL 0.2-1.0 mg/dL [employer] Other Comprehensive Metabolic Panel 3.4 g/dL [employer] Other LIPID PROFILEon 10-03-2022 CHOL-HDL RATIO NORM SEE BELOW Normal [facility] Comment on above: Result Comment: 3.3 - 4.4 LOW RISK 4.4 - 7.1 AVERAGE RISK 7.1 - 11.0 MODERATE RISK >11.0 HIGH RISK Performed By: #### C MP, LIPID #### [facility] [address] [address] [address] Rosalio Burks Cholesterol [Mass/Vol] 202 mg/dL Critically high <=200 mg/dL [facility] Comment on above: Performed By: #### C MP, LIPID #### [facility] [address] [address] [address] Rosalio Burks Cholesterol in HDL [Mass/Vol] 33 mg/dL Critically low 40-60 mg/dL [facility] Comment on above: Performed By: #### C MP, LIPID #### [facility] [address] [address] [address] Rosalio Burks Cholesterol in LDL [Mass/Vol] 106.4 mg/dL Normal [facility] Comment on above: Performed By: #### C MP, LIPID #### [facility] [address] [address] [address] Rosalio Burks Cholesterol.total /Cholesterol in HDL [Mass ratio] 6.1 {ratio} [facility] Comment on above: Performed By: #### C MP, LIPID #### [facility] [address] [address] [address] Rosalio Burks HDL NORMAL > or = 60 mg/dl - LO W CARDIOVASCULAR RISK <40 mg/dl - HIGH CARDIOVASCULAR RISK Normal [facility] Comment on above: Performed By: #### C MP, LIPID #### [facility] [address] [address] [address] Rosalio Burks LDL CALC NORMAL SEE BELOW Normal [facility] Comment on above: Result Comment: <100 mg/dl OPTIMAL 100 - 129 mg/dl NEAR OR ABOVE OPTIMAL 130 - 159 mg/dl BORDERLINE HIGH 160 - 189 mg/dl HIGH >190 mg/dl VERY HIGH Performed By: #### C MP, LIPID #### [facility] [address] [address] [address] Rosalio Burks Triglyceride [Mass/Vol] 313 mg/dL Critically high <=150 mg/dL [facility] Comment on above: Performed By: #### C MP, LIPID #### [facility] [address] [place] [address] Dr. Rosalio Burks VLDL CALC 62.6 mg/dL Normal [facility] Comment on above: Performed By: #### C MP, LIPID #### [facility] [address] [place] [address] Dr. Rosalio Burks Lipid Panelon 10-03-2022 Lipid Panel > or = 60 mg/dl - LO W CARDIOVASCULAR RISK <40 mg/dl - HIGH CARDIOVASCULAR RISK [employer] Other Lipid Panel SEE BELOW [employer] Other Lipid Panel 106.4 mg/dL [employer] Other Lipid Panel 62.6 mg/dL [employer] Other PROF 14(COMP METB)on 023 Albumin [Mass/Vol] 3.9 g/dL Normal 3.4-5.[address] [facility] Comment on above: Performed By: #### C MP, LIPID #### [facility] [address] [place] [address] Dr. Rosalio Burks Albumin/Globulin [Mass ratio] 1.1 {ratio} [facility] Comment on above: Performed By: #### C MP, LIPID #### [facility] [address] [place] [address] Dr. Rosalio Burks ALP [Catalytic activity/Vol] 108 U/L 46-116 U/L [facility] Comment on above: Performed By: #### C MP, LIPID #### [facility] [address] [place] [address] Dr. Rosalio Burks ALT [Catalytic activity/Vol] 15 U/L Critically low 16-63 U/L [facility] Comment on above: Performed By: #### C MP, LIPID #### [facility] [address] [place] [address] Dr. Rosalio Burks Anion gap [Moles/Vol] 10.4 mmol/L [facility] Comment on above: Performed By: #### C MP, LIPID #### [facility] [address] [place] [address] Dr. Rosalio Burks AST [Catalytic activity/Vol] 15 U/L 15-37 U/L [facility] Comment on above: Performed By: #### C MP, LIPID #### [facility] [address] [place] [address] Dr. Rosalio Burks Bilirubin [Mass/Vol] 0.3 mg/dL Normal 0.2-1.[address] [facility] Comment on above: Performed By: #### C MP, LIPID #### [facility] [address] [place] [address] Dr. Rosalio Burks Calcium [Mass/Vol] 9.0 mg/dL Normal 8.5-10.[address] [facility] Comment on above: Performed By: #### C MP, LIPID #### [facility] [address] [place] [address] Dr. Rosalio Burks Chloride [Moles/Vol] 104 mmol/L 98-107 mmol/L [facility] Comment on above: Performed By: #### C MP, LIPID #### [facility] [address] [place] [address] Dr. Rosalio Burks CO2 [Moles/Vol] 30.7 mmol/L Normal 21.0-32.0 [facility] Comment on above: Performed By: #### C MP, LIPID #### [facility] [address] [place] [address] Dr. Rosalio Burks Creatinine [Mass/Vol] 1.09 mg/dL Normal 0.70-1.30 [facility] Comment on above: Performed By: #### C MP, LIPID #### [facility] [address] [place] [address] Dr. Rosalio Burks EGFR-AF PUERTO RICAN >60 Normal >=[address] [facility] Comment on above: Performed By: #### C MP, LIPID #### [facility] [address] [place] [address] Dr. Rosalio Burks EGFR-NON AF PUERTO RICAN >60 Normal >=[address] [facility] Comment on above: Performed By: #### C MP, LIPID #### [facility] [address] [place] [address] Dr. Rosalio Burks Globulin (S) [Mass/Vol] 3.4 g/dL Normal [facility] Comment on above: Performed By: #### C MP, LIPID #### [facility] [address] [place] [address] Dr. Rosalio Burks Glucose [Mass/Vol] 83 mg/dL Normal 74-[address] [facility] Comment on above: Performed By: #### C MP, LIPID #### [facility] [address] [place] [address] Dr. Rosalio Burks Potassium [Moles/Vol] 4.1 mmol/L Normal 3.5-5.[address] [facility] Comment on above: Performed By: #### C MP, LIPID #### [facility] [address] [place] [address] Dr. Rosalio Burks Protein [Mass/Vol] 7.3 g/dL Normal 6.4-8.[address] [facility] Comment on above: Performed By: #### C MP, LIPID #### [facility] [address] [place] [address] Dr. Rosalio Burks Sodium [Moles/Vol] 141 mmol/L Normal 136-[address] [facility] Comment on above: Performed By: #### C MP, LIPID #### [facility] [address] [place] [address] Dr. Rosalio Burks Urea nitrogen [Mass/Vol] 17.0 mg/dL Normal 7.0-18.[address] [facility] Comment on above: Performed By: #### C MP, LIPID #### [facility] [address] [place] [address] Dr. Rosalio Burks Urea nitrogen/Creatini ne [Mass ratio] 15.6 mg/mg [facility] Comment on above: Performed By: #### C MP, LIPID #### [facility] [address] [place] [address] Dr. Rosalio Burks XR MODIFIED BARIUM SWALLOWon 11-01-2021 XR MODIFIED [...] by: MAMIE HOLDER Date: 2021-11-01 09:50 Normal [facility] Ambulatory Clinical Summaryo n 02-10-2021 Ambulatory Clinical Summary {[id number] }CD:[id number] Normal [facility] General Surgery Office/Clini c Noteon 01-11-2021 [...] TAFOYA, LAVON Waters Only if needed [address] [place] [address]- Additional Instructions: Patient Education Exercising [...] Not Given Postpone due to refusal Normal [facility] Comment on above: Result Comment: Elec tronically Signed By: SNEHA TAFOYA, Tyree Contreras\.br\Date and Time Signed: 01/11/21 13:54 EDT Patient [...] Yard work, such as: ? 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 ? Raking and bagging leaves. ? Washing [...] Reviewed: 06/13/2018 Elsevier Patient Education ? 2019 [employer] [facility] Ambulatory Clinical Summaryo n 12-30-2020 Ambulatory Clinical Summary {[id number] }CD:[id number] Normal [facility] General Surgery Office/Clini c Noteon 12-30-2020 General [...] Not Given Postpone due to refusal Normal [facility] Comment on above: Result Comment: Elec tronically Signed By: SNEHA TAFOYA, Tyree Olsen.br\Date and Time Signed: 12/30/20 09:58 EDT Ambulatory Clinical Summaryo n 12-15-2020 Ambulatory Clinical Summary {[id number] }CD:[id number] Normal [facility] General Surgery Office/Clini c Noteon 12-15-2020 [...] - Not Given Postpone due to refusal [facility] Comment on above: Result Comment: Elec tronically Signed By: SNEHA TAFOYA, Tyree Buckley\Date and Time Signed: 12/15/20 16:50 EDT Pathology Noteon 12-14-2020 Pathology Note [id number]: 127 [facility] Operative Reporton Operative Report [id number]: 127 [facility] Lab Reportson 12-06-2020 Lab Reports [id number]: 127 [facility] Consent for Procedure/Surger yon 11-29-2020 Consent for Procedure/Surgery [id number]:1 27 [facility] Ambulatory Clinical Summaryo n 11-26-2020 Ambulatory Clinical Summary {[id number] }CD:[id number] [facility] Patient Educationon 11-27-19 21 Patient Education Preventive Health Exercising to Stay [...] Yard work, such as: ? 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 ? Raking and bagging leaves. ? Washing [...] 08/25/2011 Document Revised: 07/05/2018 Document Reviewed: 06/13/2018 [employer] Patient Education ? 2019 [employer] [facility] Physician Referralon 021 Physician Referral [id number]: 127 [facility] Vital Signs Date Time Vital Sign Value Performing Clinician Facility 05-29-2024 13:02-0400 Diastolic blood pressure 85 mm[Hg] Tremayne Gibson DO Work Phone: [facility] 05-29-2024 13:02-0400 Heart rate 74 /min Tremayne Gibson DO Work Phone: [facility] 05-29-2024 13:02-0400 Systolic blood pressure 141 mm[Hg] Tremayne Gibson DO Work Phone: [facility] 11-15-2023 10:54-0400 Diastolic blood pressure 75 mm[Hg] Tremayne Gibson DO Work Phone: [facility] 11-15-2023 10:54-0400 Heart rate 106 /min Tremayne Gibson DO Work Phone: [facility] 11-15-2023 10:54-0400 SaO2% (BldA) [Mass fraction] 97 % Tremayne Gibson DO Work Phone: [facility] 11-15-2023 10:54-0400 Systolic blood pressure 141 mm[Hg] Tremayne Gibson DO Work Phone: [facility] 08-16-2023 10:15-0500 Body height 190.5 cm Taras Ball Other [employer] Other 08-16-2023 10:15-0500 Body mass index (BMI) [Ratio] 22.3 kg/m2 Taras Ball Other [employer] Other 08-16-2023 10:15-0500 Body weight 80.92 kg Taras Ball Other [employer] Other 08-16-2023 10:15-0500 Diastolic blood pressure 70 mm[Hg] Taras Ball Other [employer] Other 08-16-2023 10:15-0500 Respiratory rate 12 /min Taras Ball Other [employer] Other 08-16-2023 10:15-0500 Systolic blood pressure 109 mm[Hg] Taras Ball Other [employer] Other 05-10-2023 10:46-0400 Diastolic blood pressure 87 mm[Hg] Tremayne Gibson DO Work Phone: [facility] 05-10-2023 10:46-0400 Heart rate 85 /min Tremayne Gibson DO Work Phone: [facility] 05-10-2023 10:46-0400 Systolic blood pressure 125 mm[Hg] Tremayne Gibson DO Work Phone: [facility] 03-13-2023 13:30-0400 Body height 190.5 cm Taras Ball Other [employer] Other 03-13-2023 13:30-0400 Body mass index (BMI) [Ratio] 24.42 kg/m2 Taras Ball Other [employer] Other 03-13-2023 13:30-0400 Body weight 88.63 kg Taras Ball Other [employer] Other 03-13-2023 13:30-0400 Diastolic blood pressure 78 mm[Hg] Taras Ball Other [employer] Other 03-13-2023 13:30-0400 Respiratory rate 12 /min Taras Ball Other [employer] Other 03-13-2023 13:30-0400 Systolic blood pressure 111 mm[Hg] Taras Ball Other [employer] Other 10-03-2022 14:00-0500 Body height 190.5 cm Taras Ball Other [employer] Other 10-03-2022 14:00-0500 Body mass index (BMI) [Ratio] 25.32 kg/m2 Taras Ball Other [employer] Other 10-03-2022 14:00-0500 Body weight 91.9 kg Taras Ball Other [employer] Other 10-03-2022 14:00-0500 Diastolic blood pressure 82 mm[Hg] Taras Ball Other [employer] Other 10-03-2022 14:00-0500 Respiratory rate 12 /min Taras Ball Other [employer] Other 10-03-2022 14:00-0500 Systolic blood pressure 118 mm[Hg] Taras Ball Other [employer] Other 09-19-2022 12:40-0500 Body height 190.5 cm Tabby Lindo Other [employer] Other 09-19-2022 12:40-0500 Body mass index (BMI) [Ratio] 26.25 kg/m2 Tabby Lindo Other [employer] Other 09-19-2022 12:40-0500 Body temperature 98.2 [degF] Tabby Lindo Other [employer] Other 09-19-2022 12:40-0500 Body weight 95.26 kg Tabby Lindo Other [employer] Other 09-19-2022 12:40-0500 Respiratory rate 18 /min Tabby Lindo Other [employer] Other 09-19-2022 12:40-0500 SaO2% (BldA) [Mass fraction] 96 % Tabby Lindo Other [employer] Other 09-08-2022 07:53-0500 Body height 195.6 cm Tremayne Gibson DO Work Phone: [facility] 09-08-2022 07:53-0500 Body weight 93.58 kg Tremayne Gibson DO Work Phone: [facility] 09-08-2022 07:53-0500 Diastolic blood pressure 93 mm[Hg] Tremayne Mickeytkowski DO Work Phone: [facility] 09-08-2022 07:53-0500 Heart rate 82 /min Tremayne Arevalotpreetiki DO Work Phone: [facility] 09-08-2022 07:53-0500 SaO2% (BldA) [Mass fraction] 94 % Tremayne Arevalotkowski DO Work Phone: [facility] 09-08-2022 07:53-0500 Systolic blood pressure 146 mm[Hg] Tremayne Fontenotki DO Work Phone: [facility] 12-29-2021 13:46-0400 Diastolic blood pressure 82 mm[Hg] Tremayne Arevalotpreetiki DO Work Phone: [facility] 12-29-2021 13:46-0400 Heart rate 99 /min Tremayne Corieki DO Work Phone: [facility] 12-29-2021 13:46-0400 Systolic blood pressure 114 mm[Hg] Tremayne Arevalotpreetiki DO Work Phone: [facility] 11-10-2021 08:00-0400 Diastolic blood pressure 89 mm[Hg] Hero Cuellar PT Work Phone: [facility] 11-10-2021 08:00-0400 Heart rate 83 /min Hero Salinason PT Work Phone: [facility] 11-10-2021 08:00-0400 Systolic blood pressure 134 mm[Hg] Hero Salinason PT Work Phone: [facility] Encounters Encounter Date Encounter Type Care Provider Facility Start: 05-29-2024 End: 05-29-2024 ambulatory TREMAYNE GIBSON Facility:[facility] Start: 05-29-2024 End: 05-29-2024 Office outpatient visit 10 minutes Tremayne Gibson DO Work Phone: Neurology Comment on above: PD (Parkinson's dise ase) (HCC) (Primary Dx); Sialorrhea; RBD (REM behavioral disorder) Start: 05-03-2024 End: 05-03-2024 Orders Only Cristina Narayan DO Work Phone: Neurology Comment on above: PD (Parkinson's dise ase) ([facility]) Start: 04-16-2024 End: 04-16-2024 ambulatory [facility] Start: 02-21-2024 End: 02-21-2024 ambulatory [facility] Start: 01-30-2024 Refill Tremayne florentino DO Work Phone: [facility] Comment on above: Refill Request Start: 11-15-2023 End: 11-15-2023 ambulatory TREMAYNE GIBSON Facility:[facility] Start: 11-15-2023 End: 11-15-2023 Office outpatient visit 15 minutes Tremayne Gibson DO Work Phone: Neurology Comment on above: PD (Parkinson's dise ase) ([facility]) (Primary Dx); Sialorrhea; RBD (REM behavioral disorder) Start: 10-02-2023 End: 10-02-2023 ambulatory [facility] Start: 09-26-2023 End: 09-26-2023 ambulatory [facility] Start: 08-16-2023 End: 08-16-2023 ambulatory Taras Pickett Other [facility] Other Start: 08-16-2023 Office outpatient vi sit 15 minutes Taras Pickett [facility] Start: 08-10-2023 End: 08-10-2023 ambulatory Taras Pickett Other [employer] Other Start: 08-10-2023 Office outpatient vi sit 15 minutes Taras Pickett [facility] Start: 05-10-2023 End: 05-10-2023 Office outpatient visit 15 minutes Tremayne Gibson DO Work Phone: Neurology Comment on above: PD (Parkinson's dise ase) Start: 04-06-2023 Telephone encounter Tremayne fox DO Work Phone: Neurology Comment on above: Forms Start: 03-13-2023 End: 03-13-2023 ambulatory Taras Pickett Other [employer] Other Start: 03-13-2023 Office outpatient vi sit 25 minutes Taras Pickett [facility] Start: 11-22-2022 ambulatory Tremayne florentino DO Work Phone: Neurology Comment on above: neuropathy analysis Start: 10-09-2022 End: 10-09-2022 ambulatory Taras Pickett Other [employer] Other Start: 10-09-2022 Telephone encounter Taras Pickett [facility] Start: 10-08-2022 Encounter for genera l adult medical examination without abnormal findings DR TARAS PICKETT [facility] Start: 10-03-2022 End: 10-04-[address] TARAS PICKETT Facility:[facility] Start: 10-03-2022 End: 10-04-2022 Encounter for general adult medical examination without abnormal findings DR TARAS PICKETT Facility:[facility] Start: 10-03-2022 Periodic preventive med est patient 40-64yrs Taras Pickett [facility] Start: 09-19-2022 End: 09-19-2022 ambulatory Tabby Lindo Other [employer] Other Start: 09-19-2022 Office outpatient ne w 30 minutes Tabby Lindo [facility] Start: 09-08-2022 End: 09-08-2022 Office outpatient visit 15 minutes Tremayne Gibson DO Work Phone: Neurology Comment on above: PD (Parkinson's dise ase) (HCC) (Primary Dx); Neuropathy, peripheral, hereditary Start: 12-29-2021 End: 12-29-2021 Patient encounter procedure Tremayne Gibson DO Work Phone: Neurology Comment on above: PD (Parkinson's dise ase) (HCC) (Primary Dx) Start: 12-01-2021 End: 12-01-2021 ambulatory Janice Leon CCC-LOCAL SALES MANAGER [facility] Comment on above: Hypokinetic Parkinso nian dysphonia (HCC) (Primary Dx); 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); Pharyngeal dysphagia; PD (Parkinson's disease) (HCC) Start: 11-14-2021 ambulatory Tremayne florentino DO Work Phone: Neurology 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 above: 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 Start: 11-10-2021 End: 11-10-2021 ambulatory Hero Cuellar PT Work Phone: [facility] Comment on above: Abnormality of gait (Primary Dx); PD (Parkinson's disease) (HCC) Hypokinetic Parkinso nian dysphonia (HCC) (Primary Dx); 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); Pharyngeal dysphagia; PD (Parkinson's disease) (HCC) Start: 11-07-2021 Telephone encounter Tremayne fox DO Work Phone: [facility] Comment on above: Results (MBS) Start: 11-03-2021 End: 11-03-2021 ambulatory Janice Leon CCC-LOCAL SALES MANAGER [facility] Comment on above: Hypokinetic Parkinso nian dysphonia (HCC) (Primary Dx); 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 Rosalio Burks Start: 12-26-2021 Adult depression screening assessment Tremayne Gibson DO Work Phone: Depression screening Byron Pickett Other Screening for malign ant neoplasm of prostate Taras Pickett Other Plan of Treatment Date Care Activity Detail Author Start: 2034 RSV Vaccine (1 - 1-d ose 75+ series) RSV Vaccine (1 - 1-dose 75+ series) [facility] Start: 10-03-2027 PROSTATE CANCER SCRE ENING DISCUSSION PROSTATE CANCER SCREENING DISCUSSION [facility] Start: 10-03-2027 Prostate specific an tigen measurement Prostate Cancer Screening Discussion [facility] Start: 01-20-2027 Screening for malign ant neoplasm of colon [facility] Start: 01-13-2026 PROSTATE CANCER SCRE ENING DISCUSSION PROSTATE CANCER SCREENING DISCUSSION [facility] Start: 05-29-2024 End: 05-29-2024 Patient encounter procedure 05/29/2024 1:00 PM EDT Office Visit Neurology [address] [place] [address] Tremayne Gibson, DO [address] [place] [address] Return in about 6 months (around 05/16/2024). Neurology Comment on above: Return in about 6 mo nths (around 05/16/2024). Start: 2024 Advance Directive Discussion Advance Directive Discussion [facility] Start: 2024 Pneumococcal Vaccine : 65+ (1 of 1 - PCV) Pneumococcal Vaccine: 65+ (1 of 1 - PCV) [facility] Start: 04-06-2024 Covid-19 Vaccine () Covid-19 Vaccine () [facility] Start: 04-06-2024 Influenza vaccination [facility] Start: 03-24-2024 Screening for malign ant neoplasm of colon [facility] Start: 04-06-2023 Covid-19 Vaccine () Covid-19 Vaccine () [facility] Start: 04-06-2023 Influenza vaccination C [facility] Start: 12-26-2022 Adult depression screening assessment DEPRESSION SCREENING [facility] Start: 08-06-2022 DEPRESSION ASSESSMENT [facility] Start: 04-06-2022 Influenza vaccination [facility] Start: 08-06-2021 DEPRESSION ASSESSMENT [facility]ION [facility] Start: 04-06-2021 Influenza vaccination INFLUENZA (#1) [facility] Start: 2019 RSV Vaccine (1 - 1-d ose 60+ series) RSV Vaccine (1 - 1-dose 60+ series) [facility] Start: 2014 PROSTATE CANCER SCRE ENING DISCUSSION PROSTATE CANCER SCREENING DISCUSSION [facility] Start: 2009 SHINGRIX VACCINE (1 of 2) SHINGRIX V ACCINE (1 of 2) [facility] Start: 2004 COLOGUARD (FIT-DNA) COLOGUARD (FIT-D NA) [facility] Start: 2004 Colonoscopy COLONOSCOPY [facility] Start: 2004 COLORECTAL CANCER SCREENING COLORECTAL CANCER SCREENING [facility] Start: [address] COLONOGRAPHY [facility] Start: 2004 DIABETES SCREEN DIABETES SCREEN [facility] Start: 2004 Diabetes Screening Diabetes Screenin g [facility] Start: 2004 FECAL OCCULT BLOOD FECAL OCCULT BLOO D [facility] Start: 2004 Screening for malign ant neoplasm of colon [facility] Start: 2004 SIGMOIDOSCOPY SIGMOIDOSCOPY [facility] Start: 1994 Lipid 1996 panel - S andriy or Plasma Lipid Screening [facility] Start: 1994 Lipid panel Lipid Screening [facility] Start: 1994 LIPID SCREEN LIPID SCREEN [facility] Start: 1978 Urine microalbumin profile [facility] Start: 1977 Anxiety Screening Anxiety Screening [facility] Start: 1977 Depression Screening Depression Scre ening [facility] Start: 1977 HEPATITIS C SCREENING HEPATITIS C [facility] Start: 1977 Hepatitis C screening Hepatitis C [facility] Start: 1977 HIV SCREENING HIV SCREENING [facility] Start: 1977 HIV screening HIV Screening [facility] Start: 1971 Adult depression screening assessment DEPRESSION SCREENING [facility] Start: 1964 COVID-19 VACCINE (#1) COVID-19 VACCI NE (#1) [facility] Start: 1964 COVID-19 VACCINE (1) COVID-19 VACCIN E (1) [facility] Start: 1960 COVID-19 VACCINE (#1) COVID-19 VACCI NE (#1) [facility] c Payers Date Payer Category Payer Unknown [id number] 2018 Unknown ALAINA ISSA PPO [id number] 2018-Present [phone] [facility] [id number] [place] [address] PPO [id number] 2018 Unknown [id number] 1959 Unknown [id number] 1960 Unknown [id number] 1960 Unknown [id number] 1960 Unknown [id number] Social History Date Type Detail Facility [facility] consumption [facility] Start: 1960 Sex Assigned At Not on file [facility] Start: 09-06-2021 End: 04-04-2022 Exposure to SARS-CoV-2 (event) Not sure [facility] Start: 09-08-2022 [facility] Never smoked tobacco [facility] Start: 09-08-2022 Tobacco use and exposure Smoke less tobacco non-user [facility] Start: 09-08-2022 End: 01-15-2023 Sex Assigned At [facility] Start: 09-08-2022 End: 01-15-2023 History of Social function [facility] Adult Depression Screening Assessment 0 [facility] Start: 10-01-2021 Sexual orientation Choose not to dis close [facility] Clinical Notes 08-06-2008 to 05-29-2024 Tremayne Gibson DO - 05/29/2024 1:23 PM EDTMooCristina Álvarez, DO - 05/03/2024 12:43 PM EDTTelephone Encounter - Cristina Rosas, DO - 05/03/2024 12:41 PM EDTPatient Instructions Note Date & Type Note Facility 05-29-2024 Note HNO ID: [id number] Author: TREMAYNE GIBSON DO Service: ? Author Type: Physician Type: Progress Notes Filed: 05/29/2024 13:39 Note Text: [facility] - FOLLOW UP EVALUATION Taras Pickett DO [address] [facility] [address] Dear Taras Pickett DO: I had the pleasure of seeing Mr. Ramos for follow-up today. As you know he is a 64 year old male with a history of PD since 2021. He is seen alone. Subjective Previous Plan Increase Sinemet QID Defer botulinum toxin (Myobloc) injections for Pd (parkinson's disease) for sialorrhea Hold benzodiazepines (BZDs) for Rbd (rem behavioral disorder) Interval History: The patient notes no change to the PD. He saw cardiology who recommended he start a statin. He was hesitant since there was a potential concern for PD he read about. Has not started it yet. He is still exercising with PT. The patient denies dopaminergic medication-related motor complications. The patient denies to peak-dose dyskinesias (levodopa-induced dyskinesias - LID). The patient denies wearing-off dyskinesia. The patient denies dystonia associated with levodopa use. The patient denies any dry mouth from levodopa use. The patient denies levodopa-associated nausea nor dyspepsia. The patient denies on-off phenomena. The amount of off time reported by the patient is minimal. Some drooling at night - not a major problem. He notes less RBD (REM behavioral disorder) problems. The patient denies any recent illness or [...] others. The patient denies any new pain. Movement Disorders Medications Schedule - as of the start of the visit: Medications 7A 10A 1P 4P Sinemet 25/100 1 1 1 1 Last PT Visit: 11/10/2021 (with Hero Cuellar) for Gait Abnormality Last ST Visit: 12/08/2021 (with Janice Leon) for Gait Abnormality Questionnaires: In addition, the following areas that may be affected by abnormal involuntary movements were evaluated: Daily activities Difficulties with eatin (none) Difficulties in dressin (none) Difficulties with hygiene activities: 0 (none) Difficulties with handwriting: Yes (slight) Difficulties with doing hobbies and other activities: 0 (none) Difficulties turning in bed: 0 (none) Difficulties getting out of bed, car or chair: 0 (none) Tremors/Gait/Balance Shaking or tremors: Yes (slight) Walking and balance problems: 0 (none) Number of falls in the Last Month: none Gait freezin (none) Autonomic/Pain Lightheadeness on standing: Yes (slight) Urinary problems: 0 (none) Constipation problems: Yes (slight) Pain and other sensations: 0 (none) Speech/Swallowing Speech problems: Yes (slight) Drooling: Yes (mild) Chewing and swallowing problems: 0 (none) Sleep/Fatigue Sleep problems: 0 (none) Daytime sleepiness: 0 (none) Fatigue: Yes (slight) Mood/Behavior Depression: PHQ-9 Score: 0 usually representing no significant (0-4) depression. Anxiety: JUAN C-7 Total Score: 0 usually representing no significant (0-4) anxiety. Finally, the following table shows the patient's overall global physical and mental health using the PROMIS scale: PROMIS-10 Flowsheet Row Office Visit from 05/29/2024 in Neurology Office Visit from 11/15/2023 in Neurology Global Physical Health T Score 57.7 61.9 Global Mental Health T Score 62.5 56 0-10 Standard Pain Scale 5 5 *PROMIS-10 scoring scale: mean = 50, over 50 is above average, under 50 is below average ALLERGIES No Known Allergies Current Outpatient Medications Medication Sig atorvastatin (LIPITOR) 40 mg tablet Take 40 mg by mouth once daily. carbidopa-levodopa (SINEMET) 25-100 mg per tablet Take 1 tablet by mouth four times daily. dilTIAZem CR (TIAZAC,TAZTIA XT) 240 mg 24 hr capsule Take 240 mg by mouth once daily. aspirin 325 mg tablet Take 325 mg by mouth once daily. No current facility-administered medications for this visit. Objective Vital Signs: BP 141/85 (BP Site: Left Arm, BP Position: Sitting, BP Cuff Size: Regular Adult) Pulse 74 Orthostatic Vitals: None for this encounter No LMP for male patient. There is no height or weight on file to calculate BMI. General Physical Examination: General Exam General Neurological Examination: Neurological Exam Mental Status Awake and alert. Recent and remote memory are intact. Speech is normal. Language is fluent with no aphasia. Attention and concentration are normal. Fund of (more content not included)... [facility] 05-29-2024 History of Present illness Narrative [facility] - FOLLOW UP EVALUATION Taras Pickett DO [address] [facility] [address] Dear Taras Pickett DO: I had the pleasure of seeing Mr. Ramos for follow-up today. As you know he is a 64 year old male with a history of PD since 2021. He is seen alone. Subjective Previous Plan Increase Sinemet QID Defer botulinum toxin (Myobloc) injections for Pd (parkinson's disease) for sialorrhea Hold benzodiazepines (BZDs) for Rbd (rem behavioral disorder) Interval History: The patient notes no change to the PD. He saw cardiology who recommended he start a statin. He was hesitant since there was a potential concern for PD he read about. Has not started it yet. He is still exercising with PT. The patient denies dopaminergic medication-related motor complications. The patient denies to peak-dose dyskinesias (levodopa-induced dyskinesias - LID). The patient denies wearing-off dyskinesia. The patient denies dystonia associated with levodopa use. The patient denies any dry mouth from levodopa use. The patient denies levodopa-associated nausea nor dyspepsia. The patient denies on-off phenomena. The amount of off time reported by the patient is minimal. Some drooling at night - not a major problem. He notes less RBD (REM behavioral disorder) problems. The patient denies any recent illness or [...] others. The patient denies any new pain. Movement Disorders Medications Schedule - as of the start of the visit: Medications 7A 10A 1P 4P Sinemet 25/100 1 1 1 1 Last PT Visit: 11/10/2021 (with Hero Cuellar) for Gait Abnormality Last ST Visit: 12/08/2021 (with Janice Leon) for Gait Abnormality Questionnaires: In addition, the following areas that may be affected by abnormal involuntary movements were evaluated: Daily activities Difficulties with eatin (none) Difficulties in dressin (none) Difficulties with hygiene activities: 0 (none) Difficulties with handwriting: Yes (slight) Difficulties with doing hobbies and other activities: 0 (none) Difficulties turning in bed: 0 (none) Difficulties getting out of bed, car or chair: 0 (none) Tremors/Gait/Balance Shaking or tremors: Yes (slight) Walking and balance problems: 0 (none) Number of falls in the Last Month: none Gait freezin (none) Autonomic/Pain Lightheadeness on standing: Yes (slight) Urinary problems: 0 (none) Constipation problems: Yes (slight) Pain and other sensations: 0 (none) Speech/Swallowing Speech problems: Yes (slight) Drooling: Yes (mild) Chewing and swallowing problems: 0 (none) Sleep/Fatigue Sleep problems: 0 (none) Daytime sleepiness: 0 (none) Fatigue: Yes (slight) Mood/Behavior Depression: PHQ-9 Score: 0 usually representing no significant (0-4) depression. Anxiety: JUAN C-7 Total Score: 0 usually representing no significant (0-4) anxiety. Finally, the following table shows the patient's overall global physical and mental health using the PROMIS scale: PROMIS-10 Flowsheet Row Office Visit from 05/29/2024 in Neurology Office Visit from 11/15/2023 in Neurology Global Physical Health T Score 57.7 61.9 Global Mental Health T Score 62.5 56 0-10 Standard Pain Scale 5 5 *PROMIS-10 scoring scale: mean = 50, over 50 is above average, under 50 is below average ALLERGIES No Known Allergies Current Outpatient Medications Medication Sig atorvastatin (LIPITOR) 40 mg tablet Take 40 mg by mouth once daily. carbidopa-levodopa (SINEMET) 25-100 mg per tablet Take 1 tablet by mouth four times daily. dilTIAZem CR (TIAZAC,TAZTIA XT) 240 mg 24 hr capsule Take 240 mg by mouth once daily. aspirin 325 mg tablet Take 325 mg by mouth once daily. No current facility-administered medications for this visit. Objective Vital Signs: BP 141/85 (BP Site: Left Arm, BP Position: Sitting, BP Cuff Size: Regular Adult) Pulse 74 Orthostatic Vitals: None for this encounter No LMP for male patient. There is no height or weight on file to calculate BMI. General Physical Examination: General Exam General Neurological Examination: Neurological Exam Mental Status Awake and alert. [...] No focal weakness appreciated on examination. Sensory Vibration abnormality: +stocking-glove gradient in bilateral extremities. Dual simultaneous stimulation is intact. Reflexes Right Left Brachioradialis 2+ 2+ Biceps 2+ 2+ Triceps 2+ 2+ Hamstring 1+ 1+ Patellar 2+ 2+ Right pathological reflexes: Rashel's absent. Left pathological reflexes: Rashel's absent. Coordination Right: Dypsak-nl-ddlh normal. Rapid alternating movement normal.Left: Amvdvh-sx-rxru normal. Rapid alternating movement normal. Gait Casual gait: Narrow stance. Reduced stride length. Normal gait. Normal right arm swing. Reduced left arm swing. Normal pull test. Able to rise from chair without using arms. The patient did not require assistive devices to ambulate. Movement Disorders Scales Performed: MDS-UPDRS Motor subscale condition of exam Medication Off/On/Naiive Time of UPDRS 1330 Time of Last Medication 1100 Last Medication Taken Sinemet 25/100 DBS Right DBS Left MDS-UPDRS Motor subscale scores Speech 1-Slight. Loss of modulation, diction or volume, but still all words easy to understand. Facial Expression 1-Slight. Minimal masked facies manifested only by decreased frequency of blinking. Rigidity Neck 1-Slight. Rigidity only detected with activation maneuver. Rigidity Right Upper Extremity 1-Slight. Rigidity only [...] near the end of the 10 taps. Finger Taps Left 1-Slight. a) the regular rhythm is broken with one or two interruptions or hesitations of the tapping movement, b) slight slowing, c) the amplitude decrements near the end of the 10 taps. Hand Movements Right 0-Normal. No problem. Hand Movements Left 0-Normal. No problem. Arm Movements Right 0-Normal. No problems. Arm Movements Left 1-Slight. a) the regular rhythm is broken with one or two interruptions or hesitations of the movement, b) slight slowing, c) the amplitude decrements near the end of the sequence. Toe Taps Right 0-Normal. No problem. Toe Taps Left 1-Slight. a) the regular rhythm is broken with one or two interruptions or hesitations of the tapping movement, b) slight slowing, c) the amplitude decrements near the end of the ten taps. Leg Agility Right 0-Normal. No problems. Leg [...] Left 0-Normal. No tremor. Kinetic Tremor Right 0-Normal. No tremor. Kinetic [...] tremor. MDS-UPDRS Motor subscale totals Left Total 8 Right Total 4 Midline Total 5 Tremor Total / 10 0 PIGD Total / 3 0 Overall Total 17 % Change Compared to Last Filed Total -52.77 Assessment and Plan: Assessment Mr. Ramos is a 64 year old year old male with IPD (idiopathic Parkinson's disease) The patient's IPD (idiopathic Parkinson's disease) is stable and there has been improvement with Sinemet escalation. The patient has stable RBD (REM behavioral disorder) and drooling. The following are the current problems noted and addressed during this visit: Pd (parkinson's disease) (hcc) Sialorrhea Rbd (rem behavioral disorder) Plan 05/29/2024 Visit: Continue current antiparkinsonian regimen as dosed. Defer botulinum toxin (Myobloc) injections for PD (Parkinson's disease) for sialorrhea Hold benzodiazepines (BZDs) for RBD (REM behavioral disorder) Discussed with patient - risks and benefits about statins and PD - recommended he start medication as recommended Patient's perception of importance for healthcare provider to let them know of research trials for which they may be eligible? Not at all important Interested in clinical research? Not currently Updated Movement Disorders Medication Schedule: Medications 7A 10A 1P 4P Sinemet 25/100 1 1 1 1 Level of service : 14039 (10-19 min). Time spent 15 min on the day of service, which included preparing to see the patient, [id number]-[id number] patient care, completing clinical documentation, obtaining and/or reviewing separately obtained history, performing a medically appropriate examination, counseling and educating the patient/family/caregiver, and communicating results to the patient/family/caregiver. Thank you for allowing me to be part of the clinical care of this patient! I look forward to continued participation in the patient s care with you. Please do not hesitate to call with any questions. Sincerely, Tremayne Gibson DO documented in this encounter [facility] 05-03-2024 Note HNO ID: [id number] Author: CRISTINA ROSAS DO Service: ? Author Type: Physician Type: Progress Notes Filed: 05/03/2024 12:43 Note Text: [facility] 05-03-2024 History of Present illness Narrative documented in this encounter [facility] 05-03-2024 Telephone encounter Note Patient called stating he was out of town and needed 10 pills of [facility]emet to [facility] in [place]. Refill ordered [facility] 05-03-2024 Miscellaneous Notes Patient called stating he was out of town and needed 10 pills of [facility] to [facility] in [place]. Refill ordered documented in this encounter [facility] 04-16-2024 Note -Patient has no conc erning symptoms. -[id number] score: 1 (age). [facility] 04-16-2024 Note Device check on 03/19 -Found to have normal functioning. -Pacemaker life: 3 year 10 month remaining. -Atrial paced 45%, RV paced 15%. [facility] 04-16-2024 Note Ordered Echo (TTE) i n 6 months for re-evaluation of ascending thoracic aneurysm. Continue to monitor for increased dilation. -Last echo in 2019 showed ascending thoracic aorta measuring 4.2. CTA in 2023 showed no increase in size. [facility] 04-16-2024 Note Lipid studies from show elevated LDL at 128.4. -Started Lipitor 40 mg at today's visit for better lipid control. -Will re-draw lipids and CMP in 3 months. [facility] 04-16-2024 Note Pt is here for a six month follow up. Pt denies chest pain, sob, palpatations Review of Systems Neurological: Positive for light-headedness and tremors. All other systems reviewed and are negative. [facility] 04-16-2024 Note [facility] PROGR ESS NOTE [facility] HPI: Jak Ramos is a 64 y.o. male with a PMHx of PPM, aortic dilation, PAF, Parkinsons, here for 6 month follow up. Pt denies chest pain, sob, palpatations. Review of Systems Neurological: Positive for light-headedness and tremors. All other systems reviewed and are negative. Social History Tobacco Use Smoking status: Never Smokeless tobacco: Never Substance Use Topics Alcohol use: Not Currently Drug use: Never No Known Allergies Medications: Current Outpatient Medications on File Prior to Visit Medication Sig Dispense Refill aspirin 325 mg tablet in the morning. carbidopa-levodopa (Sinemet) 25-100 mg tablet Take 1 tablet by mouth in the morning, afternoon, and at bedtime. Taking four times a day dilTIAZem CD (Cardizem CD) 240 mg 24 hr capsule Take 1 capsule (240 mg) by mouth once daily as directed. 90 capsule 3 No current facility-administered medications on file prior to visit. No results found for: PTWEIGHT Physical Exam: BP 111/82 (BP Location: Left arm, Patient Position: Sitting) Pulse 82 Ht 1.956 m (6' 5 ) Wt 85.7 kg (189 lb) SpO2 98% BMI 22.41 kg/m??? Physical exam: General: Awake, alert, good spirits. NAD Eyes: anicteric sclera. Non-injected conjunctiva. No xanthelasmas Neck: No elevated JVP. No carotid bruit Pulm: Breath sounds clear to ascultation bilaterally with no wheeze, crackles or rhonchi Cards: HRRR. NL S1, S2. No S3 or S4 gallop. Murmur: none Abd: Soft, Nontender, physiologic bowel sounds are present Extr: Lower extremity edema: none. DP pulses present bilaterally Skin: warm, dry, well perfused Neuro: A&Ox3, No gross deficits Labs: 09/28/2023 Chem: Na 141, K 4, BUN 20, Cr 1.2, AST 12, ALT 7 Lipid: Triglycerides 78, cholesterol 185, LDL 128.4, HDL 41 Last known labs reviewed with patient at today's visit. CV Testing: Device Check: 03/19/24 Device was found to have normal function. Pacemaker life: 3 year 10 month remaining. Atrial paced 45%, RV paced 15%. CTA 10/03/23 Impression: Borderline aneurysm of the ascending thoracic aorta measuring 4.2 x 4.2 cm in diameter. Echo 09/18/2019 Impression: 1.) Global left ventricular systolic function is normal 2.) No regional wall motion abnormality 3.) Normal right ventirulcar systolic function. 4.) Doppler studies suggest normal right sided pressures. 5.) Moderate aortic dilation. Ascending aorta 4.2 cm. 6.) No significant valvular abnormalities. Assessment: Jak Ramos is a 64 y.o. male with a PMHx of PPM, aortic dilation, PAF, Parkinsons, here for 6 month follow up. Hyperlipidemia Lipid studies from 09/28/23 show elevated LDL at 128.4. -Started Lipitor 40 mg at today's visit for better lipid control. -Will re-draw lipids and CMP in 3 months. Dilatation of aorta (CMS/HCC) Ordered Echo (TTE) in 6 months for re-evaluation of ascending thoracic aneurysm. Continue to monitor for increased dilation. -Last echo in 2019 showed ascending thoracic aorta measuring 4.2. CTA in 2023 showed no increase in size. Cardiac pacemaker in situ Device check on 03/19/24 -Found to have normal functioning. -Pacemaker life: 3 year 10 month remaining. -Atrial paced 45%, RV paced 15%. Follow up: Follow-up visit in 3 months for check after statin initiation. Sathish Boaz, PA-C [facility] Available 7-5pm via [place] [employer] Pager #: [phone] [facility] 01-30-2024 Telephone encounter Note Last appt 11/15/23 [facility] Patient phones requesting refills as follows: Requested Prescriptions Pending Prescriptions Disp Refills carbidopa-levodopa (SINEMET) 25-100 mg per tablet 360 tablet 1 Sig: Take 1 tablet by mouth four times daily. [facility] 01-30-2024 Miscellaneous Notes Last appt 11/15/23 [facility] Patient phones requesting refills as follows: Requested Prescriptions Pending Prescriptions Disp Refills carbidopa-levodopa (SINEMET) 25-100 mg per tablet 360 tablet 1 Sig: Take 1 tablet by mouth four times daily. documented in this encounter [facility] 11-15-2023 Instructions Tremayne Gibson DO - 11/15/2023 11:55 AM EDT Medications 7A 10A 1P 4P Sinemet 25/100 1 1 1 1 a. Take Sinemet 30 minutes before meals or 60 minutes after meals. Avoid taking this medication with high protein meals. b. If nausea develops, try taking Sinemet with crackers or bread. c. If nausea still persists, please call. Avoid taking anti-nausea medications before speaking with us. Avoid Reglan, Compazine or Phenergan. documented in this encounter [facility] 11-15-2023 Note HNO ID: [id number] Author: TREMAYNE GIBSON DO Service: ? Author Type: Physician Type: Progress Notes Filed: 11/15/2023 11:55 Note Text: [facility] - FOLLOW UP EVALUATION Jak Ramos is a 63 year old male with a history of PD. He is seen with his . Interval History Since Last Visit: Migraines are better. The patient has more tremor. He is exercising with a PD group 2x weekly. No falls. The variety of exercises has been changing - doing better overall. Parkinson's Medications Schedule: Medications 6A 10A 245P Sinemet 25/100 1 1 1 Previous Parkinson's Medications: None In addition, the following Parkinson-associated features were evaluated: Daily activities Difficulties with eatin (none) Difficulties in dressing: Yes (slight) - needs to be cautious with putting pants on Difficulties with hygiene activities: 0 (none) Difficulties with handwritin (none) Difficulties with doing hobbies and other activities: 0 (none) Difficulties turning in bed: 0 (none) Difficulties getting out of bed, car or chair: Yes (slight) -0 he needs to push up from a chair Tremors/Gait/Balance Shaking or tremors: Yes (slight) Walking and balance problems: 0 (none) Gait freezin (none) Autonomic/Pain Lightheadeness on standing: Yes (slight) Urinary problems: Yes (slight) - unchanged Constipation problems: Yes (slight) - unchanged; he has not used the Miralax Pain and other sensations: 0 (none) Speech/Swallowing Speech problems: Yes (mild) - more hypophonia Drooling: Yes (mild) - worse; more frequent Chewing and swallowing problems: 0 (none) Sleep/Fatigue Problems sleeping at night: 0 (none) Daytime sleepiness: Yes (slight) Fatigue: 0 (none) REM sleep behavior disorder: No Mood/Behavior/Cognition Cognitive impairment: No Hallucinations and delusions: No Apathy: No Depression: PQH-9 = 0 usually representing no significant (0-4) depression. Anxiety: JUAN C-7 = 0 usually representing no significant (0-4) anxiety. Finally, the following table shows the patient's overall global physical and mental health using the PROMIS scale relative to the previous visit: PROMIS-10 Flowsheet Row Office Visit from 11/15/2023 in Neurology Office Visit from 05/10/2023 in Neurology Global Physical Health T Score 61.9 57.7 Global Mental Health T Score 56 62.5 0-10 Standard Pain Scale 5 5 *PROMIS-10 scoring scale: mean = 50, over 50 is above average, under 50 is below average Allergies: ALLERGIES No Known Allergies Current Medications: Current Outpatient Medications Medication Sig dilTIAZem CR (TIAZAC,TAZTIA XT) 240 mg 24 hr capsule Take 240 mg by mouth once daily. aspirin 325 mg tablet Take 325 mg by mouth once daily. carbidopa-levodopa (SINEMET) 25-100 mg per tablet Take 1 tablet by mouth three times a day. No current facility-administered medications for this visit. Objective: Vital Signs: BP 141/75 (BP Site: Left Arm, BP Position: Sitting, BP Cuff Size: Regular Adult) Pulse 106 SpO2 97% General Medical Examination: General Description of Patient: [...] Left pathological reflexes: Rashel's absent. Coordination Right: Sspxad-nt-egrp normal. Rapid alternating movement normal.Left: Ooncde-vj-flmk normal. Rapid alternating movement normal. Gait Casual gait: Normal stance. Reduced stride length. Normal gait. Normal right arm swing. Reduced left arm swing. Normal pull test. Able to rise from chair without using arms. The patient did not require assistive devices to ambulate. Parkinson's Scales Performed: MDS-UPDRS Motor subscale condition of exam Medication Off/On/Naiive ON Time of UPDRS 1137 Time of Last Medication 0830 Last Medication Taken Sinemet 25/100 DBS Right DBS Left MDS-UPDRS Motor subscale scores Speech 2-Mild. Loss of modulation, diction, or volume, with a few words unclear, but the overall sentences easy to follow. Facial Expression 1-Slight. Minimal masked facies manifested only by decreased freque (more content not included)... [facility] 11-15-2023 History of Present illness Narrative [facility] - FOLLOW UP EVALUATION Jak Ramos is a 63 year old male with a history of PD. He is seen with his . Interval History Since Last Visit: Migraines are better. The patient has more tremor. He is exercising with a PD group 2x weekly. No falls. The variety of exercises has been changing - doing better overall. Parkinson's Medications Schedule: Medications 6A 10A 245P Sinemet 25/100 1 1 1 Previous Parkinson's Medications: None In addition, the following Parkinson-associated features were evaluated: Daily activities Difficulties with eatin (none) Difficulties in dressing: Yes (slight) - needs to be cautious with putting pants on Difficulties with hygiene activities: 0 (none) Difficulties with handwritin (none) Difficulties with doing hobbies and other activities: 0 (none) Difficulties turning in bed: 0 (none) Difficulties getting out of bed, car or chair: Yes (slight) -0 he needs to push up from a chair Tremors/Gait/Balance Shaking or tremors: Yes (slight) Walking and balance problems: 0 (none) Gait freezin (none) Autonomic/Pain Lightheadeness on standing: Yes (slight) Urinary problems: Yes (slight) - unchanged Constipation problems: Yes (slight) - unchanged; he has not used the Miralax Pain and other sensations: 0 (none) Speech/Swallowing Speech problems: Yes (mild) - more hypophonia Drooling: Yes (mild) - worse; more frequent Chewing and swallowing problems: 0 (none) Sleep/Fatigue Problems sleeping at night: 0 (none) Daytime sleepiness: Yes (slight) Fatigue: 0 (none) REM sleep behavior disorder: No Mood/Behavior/Cognition Cognitive impairment: No Hallucinations and delusions: No Apathy: No Depression: PQH-9 = 0 usually representing no significant (0-4) depression. Anxiety: JUAN C-7 = 0 usually representing no significant (0-4) anxiety. Finally, the following table shows the patient's overall global physical and mental health using the PROMIS scale relative to the previous visit: PROMIS-10 Flowsheet Row Office Visit from 11/15/2023 in Neurology Office Visit from 05/10/2023 in Neurology Global Physical Health T Score 61.9 57.7 Global Mental Health T Score 56 62.5 0-10 Standard Pain Scale 5 5 *PROMIS-10 scoring scale: mean = 50, over 50 is above average, under 50 is below average Allergies: ALLERGIES No Known Allergies Current Medications: Current Outpatient Medications Medication Sig dilTIAZem CR (TIAZAC,TAZTIA XT) 240 mg 24 hr capsule Take 240 mg by mouth once daily. aspirin 325 mg tablet Take 325 mg by mouth once daily. carbidopa-levodopa (SINEMET) 25-100 mg per tablet Take 1 tablet by mouth three times a day. No current facility-administered medications for this visit. Objective: Vital Signs: BP 141/75 (BP Site: Left Arm, BP Position: Sitting, BP Cuff Size: Regular Adult) Pulse 106 SpO2 97% General Medical Examination: General Description of Patient: [...] Left pathological reflexes: Rashel's absent. Coordination Right: Uqjacp-yy-dopv normal. Rapid alternating movement normal.Left: Utklya-sy-dykh normal. Rapid alternating movement normal. Gait Casual gait: Normal stance. Reduced stride length. Normal gait. Normal right arm swing. Reduced left arm swing. Normal pull test. Able to rise from chair without using arms. The patient did not require assistive devices to ambulate. Parkinson's Scales Performed: MDS-UPDRS Motor subscale condition of exam Medication Off/On/Naiive ON Time of UPDRS 1137 Time of Last Medication 0830 Last Medication Taken Sinemet 25/100 DBS Right DBS Left MDS-UPDRS Motor subscale scores Speech 2-Mild. Loss of modulation, diction, or volume, with a few words unclear, but the overall sentences easy to follow. Facial Expression 1-Slight. Minimal masked facies manifested only by decreased frequency of blinking. Rigidity Neck 2-Mild. Rigidity detected without the activation maneuver, but full range of motion is easily achieved. Rigidity Right Upper Extremity 2-Mild. Rigidity detected without the activation maneuver, but full range of motion is easily achieved. Rigidity Left Upper Extremity 2-Mild. Rigidity detected without the activation maneuver, but full range of motion is easily achieved. Rigidity Right Lower Extremity 3-Moderate. Rigidity detected without the activation maneuver. Full range of motion is achieved with effort. Rigidity Left Lower Extremity 3-Moderate. Rigidity detected without the activation maneuver. Full range of motion is achieved with effort. Finger Taps Right 1-Slight. a) the regular rhythm is broken with one or two interruptions or hesitations of the tapping movement, b) slight slowing, c) the amplitude decrements near the end of the 10 taps. Finger Taps Left 1-Slight. a) the regular rhythm is broken with one or two interruptions or hesitations of the tapping movement, b) slight slowing, c) the amplitude decrements near the end of the 10 taps. Hand Movements Right 0-Normal. No problem. Hand Movements Left 1-Slight. a) the regular rhythm is broken with one or two interruptions or hesitations of the movement, b) slight slowing, c) the amplitude decrements near the end of the task. Arm Movements Right 0-Normal. No problems. Arm Movements Left 3-Moderate. a) more than 5 interruptions during the movement or at least one longer arrest (freeze) in ongoing movement, b) moderate slowing, c) the amplitude decrements starting after the 1st supination-pronation sequence. Toe Taps Right 1-Slight. a) the regular rhythm is broken with one or two interruptions or hesitations of the tapping movement, b) slight slowing, c) the amplitude decrements near the end of the ten taps. Toe Taps Left 3-Moderate. a) more than 5 interruptions during the tapping movements or at least one longer arrest (freeze) in ongoing movement, b) moderate slowing, c) the amplitude decrements starting after the first tap. Leg Agility Right 1-Slight. a) the regular rhythm is broken with one or two interruptions or hesitations of the movement, b) slight slowing, c) the amplitude decrements near the end of the task. Leg Agility Left 3-Moderate. a) more than 5 interruptions during the movement or at least one longer arrest (freeze) in ongoing movement, b) moderate slowing in speed, c) amplitude decrements after the first tap. Arise From Chair 0-Normal. No problems. Able [...] Left 0-Normal. No tremor. Kinetic Tremor Right 0-Normal. No tremor. Kinetic Tremor Left 1-Slight. Tremor is present but less than 1cm in amplitude. Rest Tremor Amplitude Right Upper Extremity 0-Normal. No tremor. Rest Tremor Amplitude Left Upper Extremity 2-Mild. > 1 cm but < 3 cm in maximal amplitude. Rest Tremor Amplitude Right Lower Extremity 0-Normal. No tremor. Rest Tremor Amplitude Left Lower Extremity 0-Normal. No tremor. Rest Tremor Amplitude Lip/Jaw 0-Normal. No tremor. Rest Tremor Constancy 2-Mild. Tremor at rest is present 26-50% of the entire examination period. MDS-UPDRS Motor subscale totals Left Total 19 Right Total 8 Midline Total 7 Tremor Total / 10 5 PIGD Total / 3 0 Overall Total 36 % Change Compared to Last Filed Total Based on today's exam the patient is Citlalli and Yahr stage 2 (Bilateral disease without impairment of balance). Assessment and Plan: Mr. Ramos is a 63 year old male with idiopathic Parkinson's disease. The following are the current problems noted and addressed during this visit: Pd (parkinson's disease) (formerly [facility]) (primary encounter diagnosis) Sialorrhea Rbd (rem behavioral disorder) Plan: Increase Sinemet QID Defer botulinum toxin (Myobloc) injections for Pd (parkinson's disease) for sialorrhea Hold benzodiazepines (BZDs) for Rbd (rem behavioral disorder) Return in about 6 months (around 05/16/2024). Medical decision making was high complexity due to patient's, multiple symptoms, advancing disease The total time spent on the patient care was 20 minutes with greater than 50% of the time spent on counseling regarding preparing to see the patient, fadj-sl-dohy patient care, completing clinical documentation, obtaining and/or reviewing separately obtained history, performing a medically appropriate examination, counseling and educating the patient/family/caregiver, ordering medications, tests, or procedures, and communicating results to the patient/family/caregiver. I tried to answer all of the patient's questions and concerns during this visit. Tremayne Gibson DO Senior Staff Neurologist - [facility] documented in this encounter [facility] 09-26-2023 Note Patient here for 6 m o follow up PAF, tachycardia, and dilatation of aorta. He is scheduled for routine device interrogation next week. He denies chest pain, SOB, and palpitations. Review of Systems Neurological: Positive for light-headedness and tremors. All other systems reviewed and are negative. [facility] 09-26-2023 Note [place] Electrophysiology Consult Note Reason for visit: 6 [...] He recently went to Parkinson symposium at [facility]. He is handling his meds well. Device check 04/03/23 SR with normal parameters. 42% RA pacing and 23% RV pacing. Review of Systems Musculoskeletal: Positive for arthritis, back pain and myalgias. All other systems reviewed and are negative. [facility] neurology recently made a formal diagnosis of [...] sleep apnea Mus (more content not included)... [facility] 08-16-2023 Evaluation note Encounter Date Diagnosis Assessment [...] G20) Weakens his ability to clear secretions [employer] Other 01-05-2024 Evaluation note* Encounter Date Diagnosis [...] Push fluids, may require elevation of HOB. Tessalon Perles since nonproductive [employer] Other 10-05-2023 History of Present illness Narrative* Tremayne Gibson, DO - 05/10/2023 11:20 AM EDT [facility] - FOLLOW UP EVALUATION Tremayne Gibson [address] [facility] [facility] [address] Jak Ramos is a 63 year old [...] Left pathological reflexes: Rashel's absent. Coordination Right: Nbjicw-vv-jwhy normal. Rapid alternating movement normal.Left: Oesynj-eh-mkvw normal. Rapid alternating movement normal. Gait Casual [...] counseling regarding preparing to see the patient, qxsw-ze-jgml patient care, completing clinical documentation, obtaining and/or reviewing separately obtained history, performing a medically appropriate examination, counseling and educating the patient/family/caregiver, ordering medications, tests,or procedures, and communicating results to the patient/family/caregiver. I tried to answer all of the patient's questions and concerns during this visit. Tremayne Gibson DO Senior Staff Neurologist - [facility] * Abhishek Cotto LPN - 05/10/2023 10:45 [...] (Sleep study not recommended) documented in this encounterAdams [facility]09-[facility]23 Miscellaneous Notes* Telephone Encounter - Drew Mora RN - 04/06/2023 2:59 PM EDT Form printed and in nursing outbox for MD signature. Drew Mora RN * Telephone Encounter - Flora Quevedo - 04/06/2023 2:05 PM EDT Received form by fax from [facility] in [place]. They are asking if the patient can participate [employer] fitness class. Scanned form to patient's chart for provider signature. documented in this encounterAdams [facility]08-[facility] Evaluation note* Encounter Date Diagnosis [...] calories. Protien supplement recommended. Monitor for now. [employer] Other 03-06-2023 Evaluation note* Encounter Date Diagnosis Assessment Notes Treatment Notes Treatment Clinical Notes Oct, Parkinson's disease (ICD-10 - G20) [employer] Other 02-28-2023 Evaluation note* Encounter Date Diagnosis [...] f/u Neurology, scheduled to be seen at [facility] neuropathy clinic. Fall precautions., inspect feet daily for cuts and calluses. Sep, Paroxysmal atrial fibrillation (ICD-10 - I48.0) CHADS VASC=0 Denies episodes of tachycardia. f/u Cardiology Sep, Cardiac pacemaker (I CD-10 - Z95.0) PM checks q 6mo [employer] Other 02-14-2023 Evaluation note* Encounter Date Diagnosis [...] treatment plan. Patient left in stable condition. [employer] Other [id number] Instructions* Patient Instructions* Tremayne Gibson DO - 09/08/2022 8:40 AM EST Medications 6A 10A 245P Sinemet 25/100 1 1 1 documented in this encounterAdams County [facility] Center02-03-2023 History of Present illness Narrative* Tremayne Gibson DO - 09/08/2022 8:18 AM EST [facility] - FOLLOW UP EVALUATION Tremayne Gibson [address] [facility] [address] Jak Ramos is a 62 year old [...] holds a paper. No falls are noted. 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 There is a strong family [...] in Neurology OT/PT/Speech Visit from 10/13/2021 in [facility] Physical Therapy Global Physical Health T Score [...] Left pathological reflexes: Rashel's absent. Coordination Right: Yracrq-gr-rslb normal. Rapid alternating movement normal.Left: Khymmo-bo-czcd normal. Rapid alternating movement normal. Gait Casual [...] the amplitude decrements starting after the 1st xfvp-kfq-ojtzc sequence. Arm Movements Right 2-Mild. a) 3 [...] addressed during this visit: Pd (parkinson's disease) (formerly [facility]) (primary encounter diagnosis) Neuropathy, peripheral, hereditary Plan: Continue Sinemet Encouraged exercise - ~150 minutes of strenuous exercise weekly is recommended Defer until 12/26; PT at [facility] Defer until 12/26; genetic counseling for testing for peripheral neuropathy Return in about 6 months (around 03/08/2023). Medical decision making was high complexity due to patient's, multiple symptoms, advancing disease,newly diagnosed Neurologic disease and counseling about prison implications The total time spent on the patient care was 25 minutes with greater than 50% of the time spent on counseling regarding preparing to see the patient, rljx-bv-vwfg patient care, completing clinical documentation, obtaining and/or reviewing separately obtained history, performing a medically appropriate examination, counseling and educating the patient/family/caregiver, ordering medications, tests,or procedures, and communicating results to the patient/family/caregiver. I tried to answer all of the patient's questions and concerns during this visit. Tremayne Gibson DO Senior Staff Neurologist - [facility] documented in this encounterAdams County [facility] Center05-26-2022 Instructions* Patient Instructions* Tremayne Gibson DO - [...] Reglan, Compazine or Phenergan. documented in this encounterAdams County [facility] Center05-26-2022 History of Present illness Narrative* Tremayne Gibson DO - 12/29/2021 2:10 PM EDT [facility] - FOLLOW UP EVALUATION Tremayne Gibson [address] [facility] [address] Jak Ramos is a 61 year old male with a history of IPD (idiopathic Parkinson's disease). He is seen with his . Interval History Since Last Visit: The patient has been following through with the LOCAL SALES MANAGER exercises on his drive to work. He notes mild depression. He has been using the treadmill. The short-term memory issues are still an issue. He notes continuing cognitive issues. The PT has been helpful - he notes more xqzyz-yo-ugxwrs. No falls arereported. The patient denies any [...] visit: PROMIS-10 OT/PT/Speech Visit from 10/13/2021 in [facility] Physical Therapy Global Physical Health T Score [...] Left pathological reflexes: Rashel's absent. Coordination Right: Qbjtzg-kh-gyzh normal. Rapid alternating movement normal. Left: Lrxfhu-lg-uucs normal. Rapid alternating movement normal. Gait Casual [...] the amplitude decrements starting after the 1st istc-wle-jtiqg sequence. Arm Movements Right 2-Mild. a) 3 [...] addressed during this visit: Pd (parkinson's disease) (formerly [facility]) (primary encounter diagnosis) Plan: 1. Start Sinemet [...] counseling regarding preparing to see the patient, svzb-wb-jglq patient care, completing clinical documentation, obtaining and/or reviewing separately obtained history, performing a medically appropriate examination, counseling and educating the patient/family/caregiver, ordering medications, tests,or procedures and communicating results to the patient/family/caregiver. I tried to answer all of the patient's questions and concerns during this visit. Tremayne Gibson DO Senior Staff Neurologist - [facility] documented in this encounterAdams County [facility] Center04-28-2022 History of Present illness Narrative* Janice Leon [facility]-LOCAL SALES MANAGER - 12/01/2021 8:55 AM EDT Episode Visit Count: 5 Therapist That Will Oversee The Plan Of Care: Janice Leon Start of Care Date: 10/13/21 Onset Date: 10/06/21 Plan of Care Certification Date: 10/13/21 Next Certification Due Date: 12/12/21 Patient Identified by Name and Date of : Yes [facility] SPEECH THERAPY PROGRESS [...] upright 90 degrees for all PO;Small Bite/Sip LOCAL SALES MANAGER Recommendations: Outpatient Speech Therapy Results and Recommendations Discussed With: Patient Planned Interventions, Frequency, and Duration: Planned Treatment Interventions: Cognitive-Linguistic Training (20853, 61666, 71226);Dysphagia Reduction Training (46464);Expressive Language Training (60905, 08224);Voice Training (44188) Current Frequency: 1x/week Duration: 4 weeks PLAN [...] reps each Laryngeal elevation/adduction exercises: 10 reps LOCAL SALES MANAGER administered DEEP PHARYNGEAL NEUROMUSCULAR STIMULATION to CN [...] 70.2 Sentences: 67.9 TREATMENT: Swallow / Dysphagia (73798): Skilled Intervention: Demonstrated, instructed, modeled and provided educational handout(s) for hyolaryngeal elevation and excursion manuevers and lingual ROM, lingual base ROM, pharyngeal ROM., Provided both written and video instruction for home exercise program to facilitate follow through with proper performance. , Provided neuromuscular reeducation of swallowing reflex via DPNS Speech/Language Therapy (60043): Skilled Intervention: Educated and instructed patient on [...] per 5 word sentences Billing: Speech Treatment (53838) and Dysphagia Treatment (37197) Total time / Length of visit: 60 minutes Janice Leon CCC-LOCAL SALES MANAGER documented in this encounterAdams County Regional Medical Center04-07-2022 Miscellaneous Notes* Addendum Note - Hero Cuellar PT - 11/10/2021 9:37 AM EDT Addended by: HERO CUELLAR on: 11/10/2021 09:37 AM Modules accepted: Orders documented in this encounterAdams County Regional Medical Center04-07-2022 History of Present illness Narrative* LANEY ParkLOCAL SALES MANAGER - 11/10/2021 9:04 AM EDT Episode Visit Count: 4 Therapist That Will Oversee The Plan Of Care: Janice Leon Start of Care Date: 10/13/21 Onset Date: 10/06/21 Plan of Care Certification Date: 10/13/21 Next Certification Due Date: 12/12/21 Patient Identified by Name and Date of : Yes [facility] SPEECH THERAPY PROGRESS [...] upright 90 degrees for all PO;Small Bite/Sip LOCAL SALES MANAGER Recommendations: Outpatient Speech Therapy Results and Recommendations Discussed With: Patient Planned Interventions, Frequency, and Duration: Planned Treatment Interventions: Cognitive-Linguistic Training (11321, 65340, 62463);Expressive Language Training (76849, 31627);Voice Training (40818);Dysphagia Reduction Training (69830) Current Frequency: 1x/week Duration: 4 weeks PLAN [...] 5 reps Pharyngeal ROM exercises: 10 reps LOCAL SALES MANAGER administered DEEP PHARYNGEAL NEUROMUSCULAR STIMULATION to CN V-XII sites with iced lemon glycerine swabs x 18. Patient demonstrated mild-strong gag response x 15, moderate to max lingual curling,moderate to max palatal lift and swallow reflexes of 2-3 seconds. TREATMENT: Swallow / Dysphagia (70551): Skilled Intervention: Demonstrated, instructed, modeled and provided [...] of swallowing reflex via DPNS. Speech/Language Therapy (00503): Skilled Intervention: Educated and instructed patient on compensatory strategies for vocal intensity, working memory, informtion processing Educated and instructed patient on memory recall strategies such as grouping. Provided verbal cues in vocal intensity. Provided and instructed patient per home exercise program. Current Home Program: facial/lingual/lingual base/laryngeal/pharyngeal exercises, working memory per 5 word sentences, memory using grouping, abstract categorical naming Billing: Speech Treatment (14302) and Dysphagia Treatment (49239) Total time / Length of visit: 75 minutes Janice Leon CCC-LOCAL SALES MANAGER documented in this encounterAdams County Regional Medical Center04-07-2022 History of Present illness Narrative* Hero Cuellar, [...] Patient to be seen for Therapeutic exercise (78855);Neuromuscular re-education (10906);Manual therapy (80362);Therapeutic activities (56929);Self-halfway management (49780);Gait Training (20614);Patient/Family/Caregiver Education;Functional training PLAN FOR NEXT VISIT: Return in 6 months to reperform outcome measures SUBJECTIVE: Patient Reason for Visit: Pt had a bout of headache and feeling off balance. Plans to discuss with optic fibre drawer. Pt will be working with Dr. Galan [...] Gait belt utilized during session for safety. Self-Correction Management: 1: Reviewed PD aerobic exercise intensity [...] 60 Hero Cuellar PT documented in this encounterAdams County Regional Medical Center04-04-2022 Miscellaneous Notes* Telephone Encounter - Darlene Salazar - 11/07/2021 1:09 PM EDT MBS results received via fax and available to view in scanned documents. documented in this encounterAdams County Regional Medical Center03-31-2022 History of Present illness Narrative* Janice Leon CCC-LOCAL SALES MANAGER - 11/03/2021 11:11 AM EDT Episode Visit Count: 3 Therapist That Will Oversee The Plan Of Care: Janice Leon Start of Care Date: 10/13/21 Onset Date: 10/06/21 Plan of Care Certification Date: 10/13/21 Next Certification Due Date: 12/12/21 Patient Identified by Name and Date of : Yes [facility] SPEECH THERAPY TREATMENT [...] 69.4 dB SPL TREATMENT: Swallow / Dysphagia (33761): Skilled Intervention: Provided education related to a [...] follow through with proper performance. Speech/Language Therapy (25202): Skilled Intervention: Educated and instructed patient on compensatory strategies for vocal intensity Provided verbal cues in vocal intensity. Provided and instructed patient per home exercise program. Current Home Program: facial/lingual/laryngeal elevation/adduction, lingual base, Billing: Treatment of Swallow Dysfunction (99137) Speech Treatment (06388) Total time / Length of visit: 45 minutes Janice Leon CCC-LOCAL SALES MANAGER documented in this encounterAdams County Regional Medical Center04-23-2021 NoteChief Complaint Referral per Dr. 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) Unspecified persistent mental disorders due to conditions classified elsewhere Pharyngeal dysphagia Dysphagia, pharyngeal phase PD (Parkinson's disease) (HCC) Paralysis agitans [facility] [place] [facility] Diagnosis Abnormality of gait- Primary PD (Parkinson's disease) (HCC) Paralysis agitans [facility] [place] [facility] 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) Unspecified persistent mental disorders due to conditions classified elsewhere Pharyngeal dysphagia Dysphagia, pharyngeal phase PD (Parkinson's disease) (HCC) Paralysis agitans [facility] 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) Unspecified persistent mental disorders due to conditions classified elsewhere Pharyngeal dysphagia Dysphagia, pharyngeal phase PD (Parkinson's disease) (HCC) Paralysis agitans documented [facility] encounter [facility] [place] [facility] Diagnosis PD (Parkinson's disease) (HCC)- Primary Paralysis agitans documented in this encounter [facility] [place] [facility] Diagnosis PD (Parkinson's disease) (HCC)- Primary Paralysis agitans Neuropathy, peripheral, hereditary Hereditary peripheral neuropathy [facility] Diagnosis PD (Parkinson's disease) (HCC)- Primary Paralysis agitans [facility] PD (Parkinson's disease) Paralysis agitans [facility] Diagnosis PD (Parkinson's disease) (HCC)- Primary Paralysis agitans Sialorrhea Disturbance of salivary secretion 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 [facility] Diagnosis PD (Parkinson's disease) (HCC) Paralysis agitans [facility] Diagnosis PD (Parkinson's disease) (HCC) Paralysis agitans [facility] Diagnosis PD (Parkinson's disease) (HCC)- Primary Paralysis agitans Sialorrhea Disturbance of salivary secretion 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 documented in this encounter [facility] Summary Purpose Family History No Family History Records FoundNo Family History Records FoundNo Family History Records FoundNo Family History Records FoundNo Family History Records Found Advance Directives No Advanced Directives Records FoundNo Advanced Directives Records FoundNo Advanced Directives Records FoundNo Advanced Directives Records FoundNo Advanced Directives Records Found Reason for Referral Specialty Diagnoses / Procedures Referred By Contac t Referred To Contact [facility] Diagnoses Abnormality of gait PD (Parkinson's disease) (HCC) Procedures PT REHAB FOLLOW UP ORDER THERAPEUTIC EXERCISES RE, EA 15 MIN. 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) Pharyngeal dysphagia PD (Parkinson's disease) (HCC) Procedures SPEECH REHAB FOLLOW UP ORDER TX SPEECH LANG VOICE COMMJ &/AUDITORY PROC IND Tremayne Gibson DO [address] [place] [address] [facility] [address] [address] Referral ID Status Reason Start Date Expiration Date V isits Requested Visits Authorized [id number] Closed PCP Requested Referral Auto-Generated Referral 12/01/2021 03/01/2022 1 1 Specialty Diagnoses / Procedures Referred By Lyubov marks Referred To Contact Diagnoses PD (Parkinson's disease) ([facility]) Procedures PROVIDER ORDERED FOLLOW UP OFFICE/OUTPATIENT NEW HIGH MDM 60-74 MINUTES Tremyane Gibson DO [address] [place] [address] Referral ID Status Reason Start Date Expiration Date V isits Requested Visits Authorized [id number] Authorized 07/01/2022 09/29/2022 1 1 Referral ID Status Reason Start Date Expiration Date V isits Requested Visits Authorized [id number] Authorized 03/08/2023 06/06/2023 1 1 Specialty Diagnoses / Procedures Referred By Lyubov marks Referred To Contact [facility] Diagnoses PD (Parkinson's disease) (HCC) Procedures CONSULT TO PHYSICAL THERAPY PHYSICAL THERAPY EVALUATION HIGH COMPLEX 45 MINS Tremayne Gibson DO [address] [place] [address] [address] Referral ID Status Reason Start Date Expiration Date Visits Requested Visits Authorized [id number] Pending Review Auto-Generat ed Referral 12/15/2022 11/23/2023 1 1 Specialty Diagnoses / Procedures Referred By Contac t Referred To Contact Diagnoses PD (Parkinson's disease) (HCC) Sialorrhea RBD (REM behavioral disorder) Procedures PROVIDER ORDERED FOLLOW UP OFFICE/OUTPATIENT NEW HIGH MDM 60 MINUTES Tremayne Gibson DO [address] [place] [address] Referral ID Status Reason Start Date Expiration Date V isits Requested Visits Authorized [id number] Authorized 05/16/2024 08/14/2024 1 1 Specialty Diagnoses / Procedures Referred By Contac t Referred To Contact Diagnoses PD (Parkinson's disease) (HCC) Procedures PROVIDER ORDERED FOLLOW UP OFFICE/OUTPATIENT NEW HIGH MDM 60 MINUTES Tremayne Gibson, [address] [place] [address] Referral ID Status Reason Start Date Expiration Date V isits Requested Visits Authorized [id number] Authorized 11/27/2024 02/25/2025 1 1 Additional Source Comments (unrecognized sect ion and content) No Status Records FoundNo Status Records FoundNo Status Records FoundNo Status Records FoundNo Status Records Found INFORMATION SOURCE (unrecogn ized section and content) DATE CREATED AUTHOR 02/11/2021 [facility] DATE CREATED AUTHOR AUTHOR'S ORGANIZ ATION 10/10/2022 [facility] DATE CREATED AUTHOR AUTHOR'S ORGANIZ ATION 04/18/2024 [facility] DATE CREATED AUTHOR AUTHOR'S ORGANIZ ATION 05/04/2024 [facility] DATE CREATED AUTHOR AUTHOR'S ORGANIZ ATION 05/31/2024 [facility] Source Comments (unrecognize d section and content) In the event this informatio n is protected by the Federal Confidentiality of Alcohol and Drug Abuse Patient Records regulations: The Federal rules restrict any use of the information to criminally investigate or prosecute any alcohol or drug abuse patient.[facility] the event this information is protected by the Federal Confidentiality of Alcohol and Drug Abuse Patient Records regulations: The Federal rules restrict any use of the information to criminally investigate or prosecute any alcohol or drug abuse patient.[facility] the event this information is protected by the Federal Confidentiality of Alcohol and Drug Abuse Patient Records regulations: The Federal rules restrict any use of the information to criminally investigate or prosecute any alcohol or drug abuse patient.[facility] the event this information is protected by the Federal Confidentiality of Alcohol and Drug Abuse Patient Records regulations: The Federal rules restrict any use of the information to criminally investigate or prosecute any alcohol or drug abuse patient.[facility] Center[facility] the event this information is protected by the Federal Confidentiality of Alcohol and Drug Abuse Patient Records regulations: The Federal rules restrict any use of the information to criminally investigate or prosecute any alcohol or drug abuse patient.[facility] the event this information is protected by the Federal Confidentiality of Alcohol and Drug Abuse Patient Records regulations: The Federal rules restrict any use of the information to criminally investigate or prosecute any alcohol or drug abuse patient.[facility] Center[facility] the event this information is protected by the Federal Confidentiality of Alcohol and Drug Abuse Patient Records regulations: The Federal rules restrict any use of the information to criminally investigate or prosecute any alcohol or drug abuse patient.[facility] Center[facility] the event this information is protected by the Federal Confidentiality of Alcohol and Drug Abuse Patient Records regulations: The Federal rules restrict any use of the information to criminally investigate or prosecute any alcohol or drug abuse patient.[facility] Center[facility] the event this information is protected by the Federal Confidentiality of Alcohol and Drug Abuse Patient Records regulations: The Federal rules restrict any use of the information to criminally investigate or prosecute any alcohol or drug abuse patient.[facility] Center[facility] the event this information is protected by the Federal Confidentiality of Alcohol and Drug Abuse Patient Records regulations: The Federal rules restrict any use of the information to criminally investigate or prosecute any alcohol or drug abuse patient.[facility] Center[facility] the event this information is protected by the Federal Confidentiality of Alcohol and Drug Abuse Patient Records regulations: The Federal rules restrict any use of the information to criminally investigate or prosecute any alcohol or drug abuse patient.[facility] CenterIn the event this information is protected by the Federal Confidentiality of Alcohol and Drug Abuse Patient Records regulations: The Federal rules restrict any use of the information to criminally investigate or prosecute any alcohol or drug abuse patient.[facility] CenterIn the event this information is protected by the Federal Confidentiality of Alcohol and Drug Abuse Patient Records regulations: The Federal rules restrict any use of the information to criminally investigate or prosecute any alcohol or drug abuse patient.[facility] CenterIn the event this information is protected by the Federal Confidentiality of Alcohol and Drug Abuse Patient Records regulations: The Federal rules restrict any use of the information to criminally investigate or prosecute any alcohol or drug abuse patient.[facility] CenterIn the event this information is protected by the Federal Confidentiality of Alcohol and Drug Abuse Patient Records regulations: The Federal rules restrict any use of the information to criminally investigate or prosecute any alcohol or drug abuse patient.[facility] CenterIn the event this information is protected by the Federal Confidentiality of Alcohol and Drug Abuse Patient Records regulations: The Federal rules restrict any use of the information to criminally investigate or prosecute any alcohol or drug abuse patient.[facility] Reason for Visit (unrecogniz ed section and content) Reason Comments Speech Progress Note Specialty Diagnoses / Procedures Referred By Contac t Referred To Contact SPEECH THERAPY Diagnoses PD (Parkinson's disease) ([facility]) Procedures CONSULT TO SPEECH THERAPY OFFICE/OUTPATIENT [facility] 60-74 MINUTES EVAL SPEECH SOUND PRODUCT LANGUAGE COMPREHENSION TX SPEECH LANG VOICE COMMJ &/AUDITORY PROC IND Tremayne Gibson, DO [address] [place] [address] [facility] [address] [place] [phone] Referral ID Status Reason Start Date Expiration Date Visits Requested Visits Authorized [id number] Authorized Auto-Generat ed Referral 10/07/2021 08/05/2022 30 30 Reason Comments Speech Therapy Reason Comments Physical Therapy PT Progress Note Specialty Diagnoses / Procedures Referred By Lyubov marks Referred To Contact PHYSICAL THERAPY Diagnoses PD (Parkinson's disease) ([facility]) Procedures CONSULT TO PHYSICAL THERAPY PHYSICAL THERAPY EVALUATION HIGH COMPLEX 45 MINS THERAPEUTIC EXERCISES RE, EA 15 MIN. Tremayne Gibson, DO [address] [place] [address] [facility] [address] [place] [address] Referral ID Status Reason Start Date Expiration Date Visits Requested Visits Authorized [id number] Authorized Auto-Generat ed Referral 10/07/2021 08/05/2022 30 30 Reason Comments Speech Progress Note Specialty Diagnoses / Procedures Referred By Lyubov marks Referred To Contact [facility]ECH THERAPY Diagnoses PD (Parkinson's disease) ([facility]) Procedures CONSULT TO SPEECH THERAPY OFFICE/OUTPATIENT [facility] 60-74 MINUTES EVAL SPEECH SOUND PRODUCT LANGUAGE COMPREHENSION TX SPEECH LANG VOICE COMMJ &/AUDITORY PROC IND Tremayen Gibson, DO [address] [place] [address] Speech [facility] [address] [place] [address] Reason Comments Results MBS Reason Comments Established Patient Tremor Tremors little worse Numbness in both feet mostly left Specialty Diagnoses / Procedures Referred By Lyubov marks Referred To Contact Diagnoses PD (Parkinson's disease) ([facility]) Procedures PROVIDER ORDERED FOLLOW UP OFFICE/OUTPATIENT NEW HIGH [facility] 60-74 MINUTES Tremayne Gibson DO [address] [place] [address] Referral ID Status Reason Start Date Expiration Date Visits Re quested Visits Authorized [id number] Closed 07/01/2022 09/29/2022 1 1 Reason Comments Forms Reason Comments Follow Up Specialty Diagnoses / Procedures Referred By Lyubov marks Referred To Contact Diagnoses PD (Parkinson's disease) Procedures PROVIDER ORDERED FOLLOW UP OFFICE/OUTPATIENT NEW HIGH MDM 60-74 MINUTES Tremayne Gibson DO [address] [place] [address] Referral ID Status Reason Start Date Expiration Date Visits Re quested Visits Authorized [id number] Closed 03/08/2023 06/06/2023 1 1 Reason Comments Follow Up Follow up on Vanessa ons Reason Onset Date Comments Refill Request 01/30/2024 Reason Comments Follow Up Parkinson's Disease Per patient statemen t, 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 Patient conts with P.T. and is going well. Specialty Diagnoses / Procedures Referred By Lyubov marks Referred To Contact Diagnoses PD (Parkinson's disease) (HCC) Sialorrhea RBD (REM behavioral disorder) Procedures PROVIDER ORDERED FOLLOW UP OFFICE/OUTPATIENT NEW HIGH MDM 60 MINUTES Tremayne Gibson DO [address] [facility] [place] [address] Referral ID Status Reason Start Date Expiration Date Visits Re quested Visits Authorized [id number] Closed 05/16/2024 08/14/2024 1 1 Care Teams (unrecognized sec tion and content) Mill Supervisor Relationship Specialty Start Date End Date Taras Pickett DO [address] [place] [address] PCP - General Internal Medicine 05/29/24 FOR RECORDS PERTAINING TO PATIENTS WHO ARE [...] BE BASED ON THE PRIMARY CLINICAL RECORDS. [facility] [employer] [facility]. provides no warranty or guarantee of the accuracy or completeness of information in this document.
[2024-06-24 11:35] LABS: Alanine Aminotransferase 9 U/L (16-63); Albumin Globulin Ratio 1.3; Albumin Level 3.9 g/dL (3.4-5.0); Alkaline Phosphatase 95 U/L (46-116); Anion Gap 13.4; Aspartate Amino Transferase 10 U/L (15-37); BUN Creatinine Ratio 11.3; Bilirubin Total 0.7 mg/dL (0.2-1.0); Carbon Dioxide 28.8 mmol/L (21.0-32.0); Chloride 105 mmol/L (98-107); Chol HDL Ratio 4.7; Cholesterol 206 mg/dL (<=200); Estimated GFR (African America >60 (>=60 mL/min/1.73m^2); Estimated GFR (Non-African Ame 54 (>=60 mL/min/1.73m^2); Globulin 3.1 g/dL; Glucose 89 mg/dL (74-106); HDL Cholesterol 44 mg/dL (40-60); Potassium 4.2 mmol/L (3.5-5.1); Sodium 143 mmol/L (136-145); Triglycerides 105 mg/dL (<=150)
== END 2024-06-24 10:01 | disposition home or self-care (01) ==
LOC: LAB 10:02
PROVIDERS: PCP Internal Medicine
DX: E78.2 Mixed hyperlipidemia (principal)
CPT/HCPCS: 36415; 80053; 80061

== ENCOUNTER 2024-10-15 12:33 | Outpatient (OUT) | payer OTHER, SELFPAY ==
--- OUTSIDE RECORDS SUMMARY | 2024-10-15 12:38 | XMS_ITS | CCD ---
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 Normal [facility] Orders Onlyon 07-02-2024 Orders Only [id number] Jurgen Ramos farideh S 1960 Provider Department Center 07/02/2024 [id number] POE [facility] CARD UT HeartVAS No family history on file Normal [facility] CNOVon 05-29-2024 CNOV Office Visit (NRESAV ) -------- COLE RAMOS ([id number]) 1960 M Date Time Provider Department 05/29/24 1:00 PM TREMAYNE GIBSON NRESAV During your visit today, we recorded the following information about you: Pulse Blood pressure 74/minute 141/85 Tremayne Gibson, DO 05/29/2024 1:39 PM Signed [facility] - FOLLOW UP EVALUATION Taras Pickett DO [address] [facility] [id number] Dear Taras Pickett DO: I had the [...] Examination: G (more content not included)... Normal [facility] CNPNon 05-03-2024 [facility] (FVPRAD[facility] -------- COLE RAMOS ([id number]) 1960 M Date Time Provider Department 05/03/24 MARI ROSAS FVPRAD During your visit today, we recorded the following information about you: Mari Rosas DO 05/03/2024 12:42 PM Signed Patient called stating he was out of town and needed 10 pills of Sinemet to [facility] in [place]. Refill ordered Allergies As of Date: 05/03/2024 (No Known Allergies) Date Reviewed: 11/15/2023 Reviewed by: Ana Hart LPN - Fully Assessed Visit Diagnosis:PD (Parkinson's disease) ([facility]) [G20.A1] Order(s):carbidopa-levod opa (SINEMET) 25-100 [...] peripheral neuropathy [G60.9] 10/06/2021 PD (Parkinson's disease) ([facility]) [G20.A1] 10/06/2021 Hypokinetic Parkinsonian dysphonia [...] Encounter Status:Closed by MARI ROSAS on 05/03/24 [facility] 37on 04-16-2024 37 Start taking lipitor 40 mg daily in the evening or prior to bed. Call the office if any muscle aches or concerns. Have follow up labs drawn in 2-3 months (June or July). Must be fasting labs. Normal [facility] Office Visiton 04-16-2024 Follow-up visit [id number] Jurgen Ramos Juanita 1960 M Date Provider Department Center 04/16/2024 [id number] SANDRA ADRIANO [facility] No family history on file Level of Service:10623 UT OFFICE/OUTPATIENT ESTABLISHED MOD MDM 30 MIN [facility] CNOVon 11-15-2023 CNOV Office Visit (NRESAV ) -------- COLE RAMOS ([id number]) 1960 M Date Time Provider Department 11/15/23 [...] Left pathological reflexes: Rashel's absent. Coordination Right: Lvwuuw-tp-wdsm normal. Rapid alternating movement normal.Left: Iyteob-vi-almx normal. Rapid alternating movement normal. Gait Casual [...] Left MDS (more content not included)... Normal [facility] 36on 10-05-2023 36 Regarding CTA chest performed on 10/03/2023: BECKY Dietz MA It is stable, 4.2cmx4.2cm, we will ct to monitor Patient informed. Normal [facility] Office Visiton 09-26-2023 Follow-up visit [id number] Jurgen Ramos S 1960 M Date Provider Department Center 09/26/2023 [facility] No family history on file Level of Service:00500 UT OFFICE/OUTPATIENT ESTABLISHED MOD MDM 30 MIN Normal [facility] CBC AUTO DIFFon 10-03-2022 BASO # 0.0 103/ul Normal 0.0-0.1 [facility] Comment on above: Performed By: #### C BC #### [facility] [address] [place] [address] Dr. Rosalio Burks Basophils/100 WBC (Bld) 0.3 % Normal 0.2-2.0 [facility] Comment on above: Performed By: #### C BC #### [facility] [address] [place] [address] Dr. Rosalio Burks EO # 0.1 103/ul Normal 0.0-0.7 [facility] Comment on above: Performed By: #### C BC #### [facility] [address] [address] [address] Rosalio Burks Eosinophils/100 WBC (Bld) 1.0 % Normal 0.9-7.0 [facility] Comment on above: Performed By: #### C BC #### [facility] [address] [address] [address] Rosalio Burks Erythrocyte distribution width (RBC) [Ratio] 11.7 % Normal 11.0-15.0 [facility] Comment on above: Performed By: #### C BC #### [facility] [address] [place] [address] Dr. Rosalio Burks Hematocrit (Bld) [Volume fraction] 43.2 % Normal 42.0-54.0 [facility] Comment on above: Performed By: #### C BC #### [facility] [address] [place] [address] Dr. Rosalio Burks Hemoglobin (Bld) [Mass/Vol] 15.0 g/dL Normal 14.0-18.0 [facility] Comment on above: Performed By: #### C BC #### [facility] [address] [place] [address] Dr. Rosalio Burks IG # 0.02 10e3/ul Normal 0.00-0.03 [facility] Comment on above: Performed By: #### C BC #### [facility] [address] [place] [address] Dr. Rosalio Burks IG % 0.3 % Normal 0.0-0.5 [facility] Comment on above: Performed By: #### C BC #### [facility] [address] [place] [address] Dr. Rosalio Burks LYMPH # 1.5 103/ul Normal 1.2-3.8 [facility] Comment on above: Performed By: #### C BC #### [facility] [address] [place] [address] Dr. Rosalio Burks Lymphocytes/100 WBC (Bld) 23.3 % Normal 20.5-60.0 [facility] Comment on above: Performed By: #### C BC #### [facility] [address] [place] [address] Dr. Rosalio Burks MANUAL DIFF REQ NO Normal [facility] Comment on above: Performed By: #### C BC #### [facility] [address] [place] [address] Dr. Rosalio Burks MCH (RBC) [Entitic mass] 31.9 pg Normal 25.9-34.0 [facility] Comment on above: Performed By: #### C BC #### [facility] [address] [place] [address] Dr. Rosalio Burks MCHC (RBC) [Mass/Vol] 34.7 g/dL Normal 29.9-35.2 [facility] Comment on above: Performed By: #### C BC #### [facility] [address] [place] [address] Dr. Rosalio Bukrs MCV (RBC) [Entitic vol] 91.9 fL Normal 80.0-94.0 [facility] Comment on above: Performed By: #### C BC #### [facility] [address] [place] [address] Dr. Rosalio Burks MONO # 0.6 103/ul Normal 0.3-0.8 [facility] Comment on above: Performed By: #### C BC #### [facility] [address] [place] [address] Dr. Rosalio Burks Monocytes/100 WBC (Bld) 10.1 % Normal 1.7-12.0 [facility] Comment on above: Performed By: #### C BC #### [facility] [address] [place] [address] Dr. Rosalio Burks NEUT # 4.0 103/ul Normal 1.4-6.5 [facility] Comment on above: Performed By: #### C BC #### [facility] [address] [place] [address] Dr. Rosalio Burks Neutrophils/100 WBC (Bld) 65.0 % Normal 43.0-75.0 [facility] Comment on above: Performed By: #### C BC #### [facility] [address] [place] [address] Dr. Rosalio Burks Platelet mean volume (Bld) [Entitic vol] 10.3 fL Normal 9.5-13.5 [facility] Comment on above: Performed By: #### C BC #### [facility] [address] [place] [address] Dr. Rosalio Burks PLT 268 103/ul Normal 150-450 [facility] Comment on above: Performed By: #### C BC #### [facility] [address] [place] [address] Dr. Rosalio Burks RBC 4.70 106/ul Normal 4.70-6.10 [facility] Comment on above: Performed By: #### C BC #### [facility] [address] [place] [address] Dr. Rosalio Burks WBC 6.2 103/ul Normal 4.0-11.0 [facility] Comment on above: Performed By: #### C BC #### [facility] [address] [place] [address] Dr. Rosalio Burks Complete Blood Count and Dif gerald 10-03-2022 Anisocytosis Ql (Bld) [facility] Other Basophilic stippling LM Ql (Bld) [facility] Other RBC morphology finding Nom (Bld) [facility] Other Complete Blood Count and Diff [facility] Other Comprehensive Metabolic Pane laura 10-03-2022 Albumin [Mass/Vol] 3.249233 g/dL 3.4-5.0 g/dL [facility] Other Calcium [Mass/Vol] 9.3302342 mg/dL 8.5-10.1 mg/dL [facility] Other CO2 [Moles/Vol] 30.87378002 mmol/L 21.0-3 2.0 mmol/L [facility] Other Creatinine [Mass/Vol] 1.90273241 mg/dL 0.70-1.30 mg/dL [facility] Other Potassium [Moles/Vol] 4.20987427 mmol/L 3.5-5.1 mmol/L [facility] Other Protein [Mass/Vol] 7.972230 g/dL 6.4-8.2 g/dL [facility] Other Urea nitrogen [Mass/Vol] 17.9896833 mg/dL 7.0-18.0 mg/dL [facility] Other Comprehensive Metabolic Panel see note [facility] Other Comprehensive Metabolic Panel 141 mmol/L 136-145 mmol/L [facility] Other Comprehensive Metabolic Panel 83 mg/dL 74-106 mg/dL [facility] Other Comprehensive Metabolic Panel >60 mL/min/1.73m2 >=60 mL/min/1.73m2 [facility] Other Comprehensive Metabolic Panel 0.3 mg/dL 0.2-1.0 mg/dL [employer] [facility] Other Comprehensive Metabolic Panel 3.4 g/dL [facility] Other LIPID PROFILEon 10-03-2022 CHOL-HDL RATIO NORM SEE BELOW Normal [facility] Comment on above: Result Comment: 3.3 - 4.4 LOW RISK 4.4 - 7.1 AVERAGE RISK 7.1 - 11.0 MODERATE RISK >11.0 HIGH RISK Performed By: #### C MP, LIPID #### [facility] [address] [address] [address] Rosalio Burks Cholesterol [Mass/Vol] 202 mg/dL Critically high <=200 mg/dL [facility] Comment on above: Performed By: #### C MP, LIPID #### [facility] [address] [address] [address] Rosalio Burks Cholesterol in HDL [Mass/Vol] 33 mg/dL Critically low 40-60 mg/dL [facility] Comment on above: Performed By: #### C MP, LIPID #### [facility] [address] [address] [address] Rosalio Burks Cholesterol in LDL [Mass/Vol] 106.4 mg/dL Normal [facility] Comment on above: Performed By: #### C MP, LIPID #### [facility] [address] [address] [address] Rosalio Burks Cholesterol.total /Cholesterol in HDL [Mass ratio] 6.1 {ratio} [facility] Comment on above: Performed By: #### C MP, LIPID #### [facility] [address] [address] [address] Rosalio Burks HDL NORMAL > or = 60 mg/dl - LO W CARDIOVASCULAR RISK <40 mg/dl - HIGH CARDIOVASCULAR RISK Normal [facility] Comment on above: Performed By: #### C MP, LIPID #### [facility] [address] [address] [address] Rosalio Burks LDL CALC NORMAL SEE BELOW Normal [facility] Comment on above: Result Comment: <100 mg/dl OPTIMAL 100 - 129 mg/dl NEAR OR ABOVE OPTIMAL 130 - 159 mg/dl BORDERLINE HIGH 160 - 189 mg/dl HIGH >190 mg/dl VERY HIGH Performed By: #### C MP, LIPID #### [facility] [address] [place] [address] Dr. Rosalio Burks Triglyceride [Mass/Vol] 313 mg/dL Critically high <=150 mg/dL [facility] Comment on above: Performed By: #### C MP, LIPID #### [facility] [address] [address] [address] Rosalio Burks VLDL CALC 62.6 mg/dL Normal [facility] Comment on above: Performed By: #### C MP, LIPID #### [facility] [address] [address] [address] Rosalio Burks Lipid Panelon 10-03-2022 Lipid Panel > or = 60 mg/dl - LO W CARDIOVASCULAR RISK <40 mg/dl - HIGH CARDIOVASCULAR RISK [facility] Other Lipid Panel SEE BELOW [facility] Other Lipid Panel 106.4 mg/dL [facility] Other Lipid Panel 62.6 mg/dL [employer] [facility] Other PROF 14(COMP METB)on 023 Albumin [Mass/Vol] 3.9 g/dL Normal 3.4-5.0 [facility] Comment on above: Performed By: #### C MP, LIPID #### [facility] [address] [place] [address] Dr. Rosalio Burks Albumin/Globulin [Mass ratio] 1.1 {ratio} [facility] Comment on above: Performed By: #### C MP, LIPID #### [facility] [address] [place] [address] Dr. Rosalio Burks ALP [Catalytic activity/Vol] 108 U/L 46-116 U/L [facility] Comment on above: Performed By: #### C MP, LIPID #### [facility] [address] [place] [address] Dr. Rosalio Burks ALT [Catalytic activity/Vol] 15 U/L Critically low 16-63 U/L [facility] Comment on above: Performed By: #### C MP, LIPID #### [facility] [address] [address] [address] Rosalio Burks Anion gap [Moles/Vol] 10.4 mmol/L [facility] Comment on above: Performed By: #### C MP, LIPID #### [facility] [address] [address] [address] Rosalio Burks AST [Catalytic activity/Vol] 15 U/L 15-37 U/L [facility] Comment on above: Performed By: #### C MP, LIPID #### [facility] [address] [address] [address] Rosalio Burks Bilirubin [Mass/Vol] 0.3 mg/dL Normal 0.2-1.0 [facility] Comment on above: Performed By: #### C MP, LIPID #### [facility] [address] [address] [address] Rosalio Burks Calcium [Mass/Vol] 9.0 mg/dL Normal 8.5-10.1 [facility] Comment on above: Performed By: #### C MP, LIPID #### [facility] [address] [address] [address] Rosalio Burks Chloride [Moles/Vol] 104 mmol/L 98-107 mmol/L [facility] Comment on above: Performed By: #### C MP, LIPID #### [facility] [address] [address] [address] Rosalio Burks CO2 [Moles/Vol] 30.7 mmol/L Normal 21.0-32.0 [facility] Comment on above: Performed By: #### C MP, LIPID #### [facility] [address] [address] [address] Rosalio Burks Creatinine [Mass/Vol] 1.09 mg/dL Normal 0.70-1.30 [facility] Comment on above: Performed By: #### C MP, LIPID #### [facility] [address] [address] [address] Rosalio Burks EGFR-AF MONTSERRATIAN >60 Normal >=60 [facility] Comment on above: Performed By: #### C MP, LIPID #### [facility] [address] [address] [address] Rosalio Burks EGFR-NON AF MONTSERRATIAN >60 Normal >=60 [facility] Comment on above: Performed By: #### C MP, LIPID #### [facility] [address] [address] [address] Rosalio Burks Globulin (S) [Mass/Vol] 3.4 g/dL Normal [facility] Comment on above: Performed By: #### C MP, LIPID #### [facility] [address] [address] [address] Rosalio Burks Glucose [Mass/Vol] 83 mg/dL Normal 74-106 [facility] Comment on above: Performed By: #### C MP, LIPID #### [facility] [address] [place] [address] Dr. Rosalio Burks Potassium [Moles/Vol] 4.1 mmol/L Normal 3.5-5.1 [facility] Comment on above: Performed By: #### C MP, LIPID #### [facility] [address] [place] [address] Dr. oRsalio Burks Protein [Mass/Vol] 7.3 g/dL Normal 6.4-8.2 [facility] Comment on above: Performed By: #### C MP, LIPID #### [facility] [address] [address] [address] Rosalio Burks Sodium [Moles/Vol] 141 mmol/L Normal 136-145 [facility] Comment on above: Performed By: #### C MP, LIPID #### [facility] [address] [address] [address] Rosalio Burks Urea nitrogen [Mass/Vol] 17.0 mg/dL Normal 7.0-18.0 [facility] Comment on above: Performed By: #### C MP, LIPID #### [facility] [address] [address] [address] Rosalio Burks Urea nitrogen/Creatini ne [Mass ratio] 15.6 mg/mg [facility] Comment on above: Performed By: #### C MP, LIPID #### [facility] [address] [address] [address] Rosalio Burks XR MODIFIED BARIUM SWALLOWon [...] HOLDER Date: 2021-11-01 09:50 Normal [facility] Ambulatory Clinical Summaryo n 02-10-2021 Ambulatory Clinical Summary {[id number] }CD:[id number] Normal [facility] General Surgery Office/Clini c Noteon 01-11-2021 General [...] TAFOYA, LAVON Waters Only if needed [address] [place] [address]- Additional Instructions: Patient Education Exercising [...] - Not Given Postpone due to refusal [facility] Comment on above: Result Comment: [...] Yard work, such as: ? 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 ? Raking and bagging leaves. ? [...] 08/25/2011 Document Revised: 07/05/2018 Document Reviewed: 06/13/2018 [employer] Patient Education ? 2019 [email or web address].TV. Normal [facility] Ambulatory Clinical Summaryo n 12-30-2020 Ambulatory Clinical Summary {[id number] }CD:[id number] Normal [facility] General Surgery Office/Clini c Noteon 12-30-2020 General [...] Not Given Postpone due to refusal Normal [facility] Comment on above: Result Comment: Elec tronically Signed By: SNEHA TAFOYA, Tyree Olsen.jonny\Date and Time Signed: 12/30/20 09:58 EDT Ambulatory Clinical Summaryo n 12-15-2020 Ambulatory Clinical Summary {[id number] }CD:[id number] Normal [facility] General Surgery Office/Clini c Noteon 12-15-2020 General [...] - Not Given Postpone due to refusal [facility] Comment on above: Result Comment: Elec tronically Signed By: SNEHA TAFOYA, Tyree Buckley\Date and Time Signed: 12/15/20 16:50 EDT Pathology Noteon 12-14-2020 Pathology Note [id number]: 127 [facility] Operative Reporton Operative Report [id number]: 127 [facility] Lab Reportson 12-06-2020 Lab Reports [id number]: 127 [facility] Consent for Procedure/Surger yon 11-29-2020 Consent for Procedure/Surgery [id number]#1.00CD:1 27 [facility] Ambulatory Clinical Summaryo n 11-26-2020 Ambulatory Clinical Summary {[id number] }CD:[id number] [facility] Patient Educationon 11-27-19 21 Patient [...] Yard work, such as: ? 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 ? Raking and bagging leaves. ? [...] 08/25/2011 Document Revised: 07/05/2018 Document Reviewed: 06/13/2018 [employer] Patient Education ? 2019 [employer] Normal [facility] Physician Referralon 021 Physician Referral [id number]: 127 Normal [facility] Vital Signs Date Time Vital Sign Value Performing Clinician Facility 10-06-2024 09:25-0500 Body height 198.12 cm [facility] 10-06-2024 09:25-0500 Body mass index (BMI) [Ratio] 22.8 kg/m2 [facility] 10-06-2024 09:25-0500 Body temperature 97.4 [degF] [facility] 10-06-2024 09:25-0500 Body weight 89.58 kg [facility] 10-06-2024 09:25-0500 Diastolic blood pressure 79 mm[Hg] [facility] 10-06-2024 09:25-0500 Heart rate 94 /min [facility] 10-06-2024 09:25-0500 Respiratory rate 16 /min [facility] 10-06-2024 09:25-0500 SaO2% (BldA) [Mass fraction] 98 % [facility] 10-06-2024 09:25-0500 Systolic blood pressure 111 mm[Hg] [facility] 05-29-2024 13:02-0400 Diastolic blood pressure 85 mm[Hg] Tremayne Arevalotkowski DO Work Phone: [facility] 05-29-2024 13:02-0400 Heart rate 74 /min Tremayne Fontenotki DO Work Phone: [facility] 05-29-2024 13:02-0400 Systolic blood pressure 141 mm[Hg] Tremayne Gostkowski DO Work Phone: [facility] 11-15-2023 10:54-0400 Diastolic blood pressure 75 mm[Hg] Tremayne Mickeytkowski DO Work Phone: [facility] 11-15-2023 10:54-0400 Heart rate 106 /min Tremayne Fontenotki DO Work Phone: [facility] 11-15-2023 10:54-0400 SaO2% (BldA) [Mass fraction] 97 % Tremayne Mickeytkowski DO Work Phone: [facility] 11-15-2023 10:54-0400 Systolic blood pressure 141 mm[Hg] Tremayne Gostkowski DO Work Phone: [facility] 08-16-2023 10:15-0500 Body height 190.5 cm Taras Ball Other [employer] Other 08-16-2023 10:15-0500 Body mass index (BMI) [Ratio] 22.3 kg/m2 Taras Ball Other [employer] Other 08-16-2023 10:15-0500 Body weight 80.92 kg Taras Ball Other [employer] Other 08-16-2023 10:15-0500 Diastolic blood pressure 70 mm[Hg] Taras Ball Other [facility] Other 08-16-2023 10:15-0500 Respiratory rate 12 /min Taras Ball Other [employer] Other 08-16-2023 10:15-0500 Systolic blood pressure 109 mm[Hg] Taras Ball Other [facility] Other 05-10-2023 10:46-0400 Diastolic blood pressure 87 mm[Hg] Tremayne Paige DO Work Phone: [facility] 05-10-2023 10:46-0400 Heart rate 85 /min Tremayne Paige DO Work Phone: [facility] 05-10-2023 10:46-0400 Systolic blood pressure 125 mm[Hg] Tremayne Paige DO Work Phone: [facility] 03-13-2023 13:30-0400 Body height 190.5 cm Taras Ball Other [employer] Other 03-13-2023 13:30-0400 Body mass index (BMI) [Ratio] 24.42 kg/m2 Taras Ball Other [employer] Other 03-13-2023 13:30-0400 Body weight 88.63 kg Taras Ball Other [employer] Other 03-13-2023 13:30-0400 Diastolic blood pressure 78 mm[Hg] Taras Ball Other [employer] Other 03-13-2023 13:30-0400 Respiratory rate 12 /min Taras Ball Other [employer] Other 03-13-2023 13:30-0400 Systolic blood pressure 111 mm[Hg] Taras Ball Other [employer] Other 10-03-2022 14:00-0500 Body height 190.5 cm Taras Ball Other [employer] Other 10-03-2022 14:00-0500 Body mass index (BMI) [Ratio] 25.32 kg/m2 Taras Ball Other [employer] Other 10-03-2022 14:00-0500 Body weight 91.9 kg Taras Ball Other [employer] Other 10-03-2022 14:00-0500 Diastolic blood pressure 82 mm[Hg] Taras Ball Other [employer] Other 10-03-2022 14:00-0500 Respiratory rate 12 /min Taras Ball Other [employer] Other 10-03-2022 14:00-0500 Systolic blood pressure 118 mm[Hg] Taras Ball Other [employer] Other 09-19-2022 12:40-0500 Body height 190.5 cm Tabby Lindo Other [employer] Other 09-19-2022 12:40-0500 Body mass index (BMI) [Ratio] 26.25 kg/m2 Tabby Lindo Other [employer] Other 09-19-2022 12:40-0500 Body temperature 98.2 [degF] Tabby Lindo Other [employer] Other 09-19-2022 12:40-0500 Body weight 95.26 kg Tabby Guicho Other [employer] Other 09-19-2022 12:40-0500 Respiratory rate 18 /min Tabby Guicho Other [employer] Other 09-19-2022 12:40-0500 SaO2% (BldA) [Mass fraction] 96 % Tabby Lindo Other [employer] Other 09-08-2022 07:53-0500 Body height 195.6 cm Tremayne Gibson DO Work Phone: [facility] 09-08-2022 07:53-0500 Body weight 93.58 kg Tremayne Gibson DO Work Phone: [facility] 09-08-2022 07:53-0500 Diastolic blood pressure 93 mm[Hg] Tremayne Gibson DO Work Phone: [facility] 09-08-2022 07:53-0500 Heart rate 82 /min Tremayne Gibson DO Work Phone: [facility] 09-08-2022 07:53-0500 SaO2% (BldA) [Mass fraction] 94 % Tremayne Gibson DO Work Phone: [facility] 09-08-2022 07:53-0500 Systolic blood pressure 146 mm[Hg] Tremayne Gibson DO Work Phone: [facility] 12-29-2021 13:46-0400 Diastolic blood pressure 82 mm[Hg] Tremayne Gibson DO Work Phone: [facility] 12-29-2021 13:46-0400 Heart rate 99 /min Tremayne Gibson DO Work Phone: [facility] 12-29-2021 13:46-0400 Systolic blood pressure 114 mm[Hg] Tremayne Gibson DO Work Phone: [facility] 11-10-2021 08:00-0400 Diastolic blood pressure 89 mm[Hg] Hero Cuellar PT Work Phone: [facility] 11-10-2021 08:00-0400 Heart rate 83 /min Hero Cuellar PT Work Phone: [facility] 11-10-2021 08:00-0400 Systolic blood pressure 134 mm[Hg] Hero Cuellar PT Work Phone: [facility] Encounters Encounter Date Encounter Type Care Provider Facility Start: 10-06-2024 End: 10-06-2024 ambulatory [facility] Work Phone: Start: 10-06-2024 End: 10-06-2024 Encounter for general adult medical examination without abnormal findings [facility] Start: 10-06-2024 End: 10-06-2024 Patient encounter procedure [facility] Physician [facility] Work Phone: Start: 09-02-2024 End: 09-03-2024 [facility]: Refill Request Start: 08-15-2024 End: 08-15-2024 ambulatory No Pcp [facility] Start: 08-15-2024 End: 08-15-2024 Patient encounter procedure No Pcp [facility] Start: 08-04-2024 End: 08-04-2024 Refill Tremayne Gibson DO Work Phone: [facility] Comment on above: Refill Request Start: 05-29-2024 End: 05-29-2024 ambulatory TREMAYNE GIBSON Facility:[facility] Start: 05-29-2024 End: 05-29-2024 Office outpatient visit 10 minutes Tremayne Gibson DO Work Phone: Neurology Comment on above: PD (Parkinson's dise ase) ([facility]) (Primary Dx); Sialorrhea; RBD (REM behavioral disorder) Start: 05-03-2024 End: 05-03-2024 Orders Only Mari Narayan DO Work Phone: Neurology Comment on above: PD (Parkinson's dise ase) ([facility]) Start: 04-16-2024 End: 04-16-2024 ambulatory [facility] Start: 02-21-2024 End: 02-21-2024 ambulatory [facility] Start: 01-30-2024 Refill Tremayne florentino DO Work Phone: [facility] Comment on above: Refill Request Start: 11-15-2023 End: 11-15-2023 ambulatory TREMAYNE GIBSON Facility:[facility] Start: 11-15-2023 End: 11-15-2023 Office outpatient visit 15 minutes Tremayne Gibson DO Work Phone: Neurology Comment on above: PD (Parkinson's dise ase) ([facility]) (Primary Dx); Sialorrhea; RBD (REM behavioral disorder) Start: 10-02-2023 End: 10-02-2023 ambulatory [facility] Start: 09-26-2023 End: 09-26-2023 ambulatory [facility] Start: 08-16-2023 End: 08-16-2023 ambulatory Taras Pickett Other [employer] Other Start: 08-16-2023 Office outpatient vi sit 15 minutes Taras Pickett [facility] Start: 08-10-2023 End: 08-10-2023 ambulatory Taras Pickett Other [employer] Other Start: 08-10-2023 Office outpatient vi sit 15 minutes Taras Pickett [facility] Start: 05-10-2023 End: 05-10-2023 Office outpatient visit 15 minutes Tremayne Gibson DO Work Phone: Neurology Comment on above: PD (Parkinson's dise ase) Start: 04-06-2023 Telephone encounter Tremayne fox DO Work Phone: Neurology Comment on above: Forms Start: 03-13-2023 End: 03-13-2023 ambulatory Taras Pickett Other [employer] Other Start: 03-13-2023 Office outpatient vi sit 25 minutes Taras Pickett [facility] Start: 11-22-2022 ambulatory Tremayne florentino DO Work Phone: Neurology Comment on above: neuropathy analysis Start: 10-09-2022 End: 10-09-2022 ambulatory Taras Pickett Other [employer] Other Start: 10-09-2022 Telephone encounter Taras Pickett [facility] Start: 10-08-2022 Encounter for genera l adult medical examination without abnormal findings DR TARAS PICKETT [facility] Start: 10-03-2022 End: 10-04-[address] TARAS PICKETT Facility:[facility] Start: 10-03-2022 End: 10-04-2022 Encounter for general adult medical examination without abnormal findings DR TARAS PICKETT Facility:[facility] Start: 10-03-2022 Periodic preventive med est patient 40-64yrs Taras Pickett [facility] Start: 09-19-2022 End: 09-19-2022 ambulatory Tabby Lindo Other [employer] Other Start: 09-19-2022 Office outpatient ne w 30 minutes Tabby Lindo [facility] Start: 09-08-2022 End: 09-08-2022 Office outpatient visit 15 minutes Tremayne Gibson DO Work Phone: Neurology Comment on above: PD (Parkinson's dise ase) ([facility]) (Primary Dx); Neuropathy, peripheral, hereditary Start: 12-29-2021 End: 12-29-2021 Patient encounter procedure Tremayne Gibson DO Work Phone: Neurology Comment on above: PD (Parkinson's dise ase) (HCC) (Primary Dx) Start: 12-01-2021 End: 12-01-2021 ambulatory Janice Leon [facility] ADMINISTRATOR [facility] Speech Therapy Comment on above: Hypokinetic Parkinso nian dysphonia (HCC) (Primary Dx); 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); Pharyngeal dysphagia; PD (Parkinson's disease) (HCC) Start: 11-14-2021 ambulatory Tremayne florentino DO Work Phone: Neurology Comment on above: 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 Start: 11-10-2021 End: 11-10-2021 ambulatory Hero Cuellar PT Work Phone: [facility] Physical Therapy Comment on above: Abnormality of gait (Primary Dx); PD (Parkinson's disease) (HCC) Hypokinetic Parkinso nian dysphonia (HCC) (Primary Dx); 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); Pharyngeal dysphagia; PD (Parkinson's disease) (HCC) Start: 11-07-2021 Telephone encounter Tremayne fox DO Work Phone: [facility] Comment on above: Results (MBS) Start: 11-03-2021 End: 11-03-2021 ambulatory Janice Leon [facility] ADMINISTR[facility] Speech Therapy Comment on above: Hypokinetic Parkinso nian dysphonia (HCC) (Primary Dx); 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 Rosalio Burks Start: 12-26-2021 Adult depression screening assessment Tremayne Gibson DO Work Phone: Depression screening Byron Pickett Other Screening for malign ant neoplasm of prostate Taras Pickett Other Plan of Treatment Date Care Activity Detail Author Start: 2034 RSV Vaccine (1 - 1-d ose 75+ series) RSV Vaccine (1 - 1-dose 75+ series) [facility] Start: 10-03-2027 PROSTATE CANCER SCREENING DISCUSSION PROSTATE CANCER SCREENING DISCUSSION [facility] Start: 10-03-2027 Prostate specific antigen measurement Prostate Cancer Screening Discussion [facility] Start: 01-20-2027 Screening for malign ant neoplasm of colon [facility] Start: 01-13-2026 PROSTATE CANCER SCREENING DISCUSSION PROSTATE CANCER SCREENING DISCUSSION [facility] Start: 01-08-2025 End: 01-08-2025 Patient encounter procedure 01/08/2025 3:30 PM EDT Office Visit Neurology [address] [place] [address] Tremayne Gibson DO [address] [place] [address] PD FOLLOW UP Neurology Comment on above: PD FOLLOW UP Start: 08-06-2024 Advance Directive Discussion Advance Directive Discussion [facility] Start: 05-29-2024 End: 05-29-2024 Patient encounter procedure 05/29/2024 1:00 PM EDT Office Visit Neurology [address] [place] [address] Tremayne Gibson DO [address] [place] [address] Return in about 6 months (around 05/16/2024). Neurology Comment on above: Return in about 6 mo nths (around 05/16/2024). Start: 2024 Advance Directive Discussion Advance Directive Discussion [facility] Start: 2024 Pneumococcal Vaccine : 65+ (1 of 1 - PCV) Pneumococcal Vaccine: 65+ (1 of 1 - PCV) [facility] Start: 04-06-2024 Covid-19 Vaccine ( season) Covid-19 Vaccine ( season) [facility] Start: 04-06-2024 Influenza vaccination [facility] Start: 03-24-2024 Screening for malign ant neoplasm of colon [facility] Start: 04-06-2023 Covid-19 Vaccine ( season) Covid-19 Vaccine ( season) [facility] Start: 04-06-2023 Influenza vaccination [facility] Start: 12-26-2022 Adult depression screening assessment DEPRESSION SCREENING [facility] Start: 08-06-2022 DEPRESSION ASSESSMENT DEPRESSION ASS ESSMENT [facility] Start: 04-06-2022 Influenza vaccination [facility] Start: 08-06-2021 DEPRESSION ASSESSMENT DEPRESSION ASS ESSMENT [facility] Start: 04-06-2021 Influenza vaccination INFLUENZA (#1) [facility] Start: 2019 RSV Vaccine (1 - 1-d ose 60+ series) RSV Vaccine (1 - 1-dose 60+ series) [facility] Start: 2014 PROSTATE CANCER SCREENING DISCUSSION PROSTATE CANCER SCREENING DISCUSSION [facility] Start: 2009 Pneumococcal Vaccine : 50+ (1 of 1 - PCV) Pneumococcal Vaccine: 50+ (1 of 1 - PCV) [facility] Start: 2009 SHINGRIX VACCINE (1 of 2) SHINGRIX VACCINE (1 of 2) [facility] Start: 2004 COLOGUARD (FIT-DNA) COLOGUARD (FIT-D NA) [facility] Start: 2004 Colonoscopy COLONOSCOPY [facility] Start: 2004 COLORECTAL CANCER SCREENING COLORECTAL CANCER SCREENING [facility] Start: [address] COLONOGRAPHY [facility] Start: 2004 DIABETES SCREEN DIABETES SCREEN [facility] Start: 2004 Diabetes Screening Diabetes Screenin g [facility] Start: 2004 FECAL OCCULT BLOOD FECAL OCCULT BLOO D [facility] Start: 2004 Screening for malign ant neoplasm of colon [facility] Start: 2004 SIGMOIDOSCOPY SIGMOIDOSCOPY [facility] Start: 1994 Lipid 1996 panel - S andriy or Plasma Lipid Screening [facility] Start: 1994 Lipid panel Lipid Screening [facility] Start: 1994 LIPID SCREEN LIPID SCREEN [facility] Start: 1978 Urine microalbumin profile [facility] Start: 1977 Anxiety Screening Anxiety Screening [facility] Start: 1977 Depression Screening Depression Scre ening [facility] Start: 1977 HEPATITIS C SCREENING [facility]PATITIS [facility] Start: 1977 Hepatitis C screening Hepatitis C Sc [facility] Start: 1977 HIV SCREENING HIV SCREENING [facility] Start: 1977 HIV screening HIV Screening [facility] Start: 1971 Adult depression screening assessment DEPRESSION SCREENING [facility] Start: 1964 COVID-19 VACCINE (#1) COVID-19 VACCI NE (#1) [facility] Start: 1964 COVID-19 VACCINE (1) COVID-19 VACCIN E (1) [facility] Start: 1959 COVID-19 VACCINE (#1) COVID-19 VACCI NE (#1) [facility] Comprehensive metabo lic 2000 panel - Serum or Plasma [facility] Payers Date Payer Category Payer Unknown [id number] 2018 Unknown ALAINA JETT PPO [id number] 2018-Present [phone] [facility] [id number] [place] [address] PPO [id number] 2018 Unknown [id number] 1959 Unknown [id number] 1959 Unknown [id number] 1959 Unknown [id number] 1959 Unknown [id number] Social History Date Type Detail Facility Tobacco smoking stat us DEIS Tobacco smoking consumption unknown [facility] Start: 1960 Sex Assigned At Not on file [facility] Start: 09-06-2021 End: 04-04-2022 Exposure to SARS-CoV-2 (event) Not sure [facility] Start: 09-08-2022 End: 09-28-2023 Tobacco smoking status DEIS Never smoked tobacco [facility] Start: 09-08-2022 Tobacco use and exposure Smoke less tobacco non-user [facility] Start: 09-08-2022 End: 01-15-2023 Sex Assigned At [facility] Start: 09-08-2022 End: 01-15-2023 History of Social function [facility] Adult Depression Screening Assessment 0 [facility] Start: 10-01-2021 Sexual orientation Choose not to dis close [facility] Start: 10-06-2024 Sex Male (finding) [facility] Start: 1960 Sex Assigned At Male F [facility] Clinical Notes 08-06-2008 to 09-02-2024 Telephone Encounter [...] electronically to the patient's pharmacy. Darlene Frias, Museum Attendant III [facility] 09-02-2024 Miscellaneous Notes Pt requesting refill as follows: Last FUV May 2024 with [facility] Requested Prescriptions Pending Prescriptions Disp Refills carbidopa-levodopa (SINEMET) 25-100 mg per tablet 120 tablet 11 Sig: Take 1 tablet by mouth four times daily. Upon approval, script will be sent electronically to the patient's pharmacy. Darlene Frias, Museum Attendant III documented in this encounter [facility] 09-02-2024 Note [facility] Consult Note [...] He recently went to Parkinson symposium at [facility]. He is handling his meds well. Device check 04/03/23 SR with normal parameters. 42% RA pacing and 23% RV pacing. Review of Systems Musculoskeletal: Positive for arthritis, back pain and myalgias. All other systems reviewed and are negative. [facility] neurology recently made a formal diagnosis of [...] Tobacco Use: Low Risk (05/29/2024) Received from [facility] Patient History Smoking Tobacco Use: Never Smokeless Tobacco Use: Never Passive Exposure: Not on file Alcohol Use: Not on file Financial Resource Strain: Not on file Food Insecurity: Not on file Transportation Needs: Not on file Physical Activity: Not on file Stress: Not on file Social Connections: Not on file Intimate Partner Violence: Unknown (09/27/2023) [place] Safety & Environment Fear of Current or Ex-Partner: Not on file Emotionally Abused: Not on file Physically Abused: Not on file Sexually Abused: Not on file Physically or Sexually Abused: Not on file Depression: Not at risk (05/23/2024) Received from [facility] PHQ-2 PHQ-2 score: 0 Housing Stability: [...] mouth in t (more content not included)... [facility] 08-15-2024 Note HNO ID: [id number] Author: ?, ?, ? Service: ? Author [...] Machado Pss August 15, 2024 1:43 PM [facility] 08-15-2024 History of Present illness Narrative POPULATION HEALTH NAVIGATION OUTREACH Action/FYI RP Patient Outreach - Left message with spouse for patient to call back to schedule Provider ordered Follow up in Neurology. (Please see [employer] order dated for (05/29/2024). Any agent can [...] 2024 1:43 PM documented in this encounter [facility] 08-15-2024 Note Patient Outreach (AC CC) COLE RAMOS ([id number]) 1960 M Date Time Provider Department 08/15/24 NO PCP [facility] During your visit today, we recorded the following information about you: Carterbarrie PavonDee Dee Sophia 08/15/2024 1:45 PM Signed POPULATION HEALTH NAVIGATION OUTREACH Action/FYI RP Patient Outreach - Left message with spouse for patient to call back to schedule Provider ordered Follow up in Neurology. (Please see [employer] order dated for (05/29/2024). Any agent can [...] Status:Closed by DEE DEE BANDA on 08/15/24 [facility] 08-04-2024 Telephone encounter Note LAST APPT 05/29/24 [facility] Forwarding to covering physician Requested Prescriptions Pending Prescriptions Disp Refills carbidopa-levodopa (SINEMET) 25-100 mg per tablet 120 tablet 0 Sig: Take 1 tablet by mouth four times daily. [facility] 08-04-2024 Miscellaneous Notes LAST APPT 05/29/24 [facility] Forwarding to covering physician Requested Prescriptions Pending Prescriptions Disp Refills carbidopa-levodopa (SINEMET) 25-100 mg per tablet 120 tablet 0 Sig: Take 1 tablet by mouth four times daily. documented in this encounter [facility] 05-29-2024 Note HNO ID: [id number] Author: TREMAYNE GIBSON, DO Service: ? Author Type: Physician Type: Progress Notes Filed: 05/29/2024 13:39 Note Text: [facility] - FOLLOW UP EVALUATION Taras Pickett DO [address] [facility] [address] Dear Taras Pickett DO: I had the [...] normal. Fund of (more content not included)... [facility] 05-29-2024 History of Present illness Narrative [facility] - FOLLOW UP EVALUATION Taras Pickett DO [address] [facility] [address] Dear Taras Pickett DO: I had the [...] Left pathological reflexes: Rashel's absent. Coordination Right: Ymxjpb-go-wfkg normal. Rapid alternating movement normal.Left: Smyckq-ca-czys normal. Rapid alternating movement normal. Gait Casual [...] 1 1 1 Level of service : 14759 (10-19 min). Time spent 15 min on the day of service, which included preparing to see the patient, vyaq-mi-mjon patient care, completing clinical documentation, obtaining and/or [...] Tremayne Gibson DO documented in this encounter [facility] 05-03-2024 Note HNO ID: [id number] Author: MARI ROSAS DO Service: ? Author Type: Physician Type: Progress Notes Filed: 05/03/2024 12:43 Note Text: [facility] 05-03-2024 History of Present illness Narrative documented in this encounter [facility] 05-03-2024 Telephone encounter Note Patient called stating he was out of town and [facility] [place]. Refill ordered [facility] 05-03-2024 Miscellaneous Notes Patient called stating he was out of town and needed [facility] [place]. Refill ordered documented in this encounter [facility] 04-16-2024 Note -Patient has no conc erning symptoms. -[id number] score: 1 (age). [facility] 04-16-2024 Note Device check on 03/19 -Found to have normal functioning. -Pacemaker life: 3 year 10 month remaining. -Atrial paced 45%, RV paced 15%. [facility] 04-16-2024 Note Ordered Echo (TTE) i n 6 months for re-evaluation of ascending thoracic aneurysm. Continue to monitor for increased dilation. -Last echo in 2019 showed ascending thoracic aorta measuring 4.2. CTA in 2023 showed no increase in size. [facility] 04-16-2024 Note Lipid studies from show elevated LDL at 128.4. -Started Lipitor 40 mg at today's visit for better lipid control. -Will re-draw lipids and CMP in 3 months. [facility] 04-16-2024 Note Pt is here for a six month follow up. Pt denies chest pain, sob, palpatations Review of Systems Neurological: Positive for light-headedness and tremors. All other systems reviewed and are negative. [facility] 04-16-2024 Note [facility] PROGR ESS NOTE [facility] HPI: Cole Ramos is a 64 [...] Sandra PA-C [facility] Available 7-5pm via [employer] Chat Pager #: [phone] [facility] 01-30-2024 Telephone encounter Note Last appt 11/15/23 [facility] Patient phones requesting refills as follows: Requested Prescriptions Pending Prescriptions Disp Refills carbidopa-levodopa (SINEMET) 25-100 mg per tablet 360 tablet 1 Sig: Take 1 tablet by mouth four times daily. [facility] 01-30-2024 Miscellaneous Notes Last appt 11/15/23 [facility] Patient phones requesting refills as follows: Requested Prescriptions Pending Prescriptions Disp Refills carbidopa-levodopa (SINEMET) 25-100 mg per tablet 360 tablet 1 Sig: Take 1 tablet by mouth four times daily. documented in this encounter [facility] 11-15-2023 Instructions Tremayne Gibson DO [...] Compazine or Phenergan. documented in this encounter [facility] 11-15-2023 Note HNO ID: [id number] Author: TREMAYNE GIBSON DO Service: ? Author [...] Left pathological reflexes: Rashel's absent. Coordination Right: Dyzxvd-df-cfxr normal. Rapid alternating movement normal.Left: Xojagy-oa-hjir normal. Rapid alternating movement normal. Gait Casual [...] by decreased freque (more content not included)... [facility] 11-15-2023 History of Present illness Narrative [...] Left pathological reflexes: Rashel's absent. Coordination Right: Bywcod-ry-gsko normal. Rapid alternating movement normal.Left: Kexlfw-at-yxrp normal. Rapid alternating movement normal. Gait Casual [...] addressed during this visit: Pd (park[facility]'s disease) ([facility]) (primary encounter diagnosis) Sialorrhea Rbd (rem [...] counseling regarding preparing to see the patient, gomw-tz-aadc patient care, completing clinical documentation, obtaining and/or reviewing separately obtained history, performing a medically appropriate examination, counseling and educating the patient/family/caregiver, ordering medications, tests, or procedures, and communicating results to the patient/family/caregiver. I tried to answer all of the patient's questions and concerns during this visit. Tremayne Gibson DO Senior Staff Neurologist - [facility] documented in this encounter [facility] 09-26-2023 Note Patient here for 6 m o follow up PAF, tachycardia, and dilatation of aorta. He is scheduled for routine device interrogation next week. He denies chest pain, SOB, and palpitations. Review of Systems Neurological: Positive for light-headedness and tremors. All other systems reviewed and are negative. [facility] 09-26-2023 Note [place] Electrophys[facility] Consult Note Reason for visit: 6 [...] He recently went to Parkinson symposium at [facility]. He is handling his meds well. Device check 04/03/23 SR with normal parameters. 42% RA pacing and 23% RV pacing. Review of Systems Musculoskeletal: Positive for arthritis, back pain and myalgias. All other systems reviewed and are negative. [facility] neurology recently made a formal diagnosis of [...] sleep apnea Mus (more content not included)... [facility] 08-16-2023 Evaluation note Encounter Date Diagnosis Assessment [...] G20) Weakens his ability to clear secretions [facility] Other 01-05-2024 Evaluation note* Encounter Date Diagnosis [...] elevation of HOB. Tessalon Perles since nonproductive [facility] Other 10-05-2023 History of Present illness Narrative* Tremayne Gibson, DO - 05/10/2023 11:20 AM EDT [facility] - FOLLOW UP EVALUATION Tremayne Gibson [address] [facility] [address] Cole Ramos is a 63 year old [...] Left pathological reflexes: Rashel's absent. Coordination Right: Hlovrq-cz-xmzw normal. Rapid alternating movement normal.Left: Crpylo-ri-mrjy normal. Rapid alternating movement normal. Gait Casual [...] counseling regarding preparing to see the patient, qnlm-mr-pfkl patient care, completing clinical documentation, obtaining and/or reviewing separately obtained history, performing a medically appropriate examination, counseling and educating the patient/family/caregiver, ordering medications, tests,or procedures, and communicating results to the patient/family/caregiver. I tried to answer all of the patient's questions and concerns during this visit. Tremayne Gibson DO Senior Staff Neurologist - [facility] * Abhishek Cotto LPN - 05/10/2023 [...] (Sleep study not recommended) documented in this encounterTogus [facility] Center09-01-2023 Miscellaneous Notes* Telephone Encounter - Drew Mora RN - 04/06/2023 2:59 PM EDT Form printed and in nursing outbox for MD signature. Drew Mora RN * Telephone Encounter - Flora Quevedo - 04/06/2023 2:05 PM EDT Received form by fax from [facility] Services in [place]. They are asking if the patient can participate [employer] fitness class. Scanned form to patient's chart for provider signature. documented in this encounterTogus Va Medical Center08-08-2023 Evaluation note* Encounter Date Diagnosis [...] calories. Protien supplement recommended. Monitor for now. [facility] Other 03-06-2023 Evaluation note* Encounter Date Diagnosis Assessment Notes Treatment Notes Treatment Clinical Notes Oct, Parkinson's disease (ICD-10 - G20) [facility] Other 02-28-2023 Evaluation note* Encounter Date Diagnosis [...] f/u Neurology, scheduled to be seen at [facility] neuropathy clinic. Fall precautions., inspect feet daily for cuts and calluses. Sep, Paroxysmal atrial fibrillation (ICD-10 - I48.0) CHADS VASC=0 Denies episodes of tachycardia. f/u Cardiology Sep, Cardiac pacemaker (I CD-10 - Z95.0) PM checks q 6mo [facility] Other 02-14-2023 Evaluation note* Encounter Date Diagnosis [...] treatment plan. Patient left in stable condition. [facility] Other 02-03-2023 Instructions* Patient Instructions* Tremayne Gibson DO - 09/08/2022 8:40 AM EST Medications 6A 10A 245P Sinemet 25/100 1 1 1 documented in this encounterTogus Va Medical Center02-03-2023 History of Present illness Narrative* Tremayne Gibson DO - 09/08/2022 8:18 AM EST [facility] - FOLLOW UP EVALUATION Tremayne Gibson [address] [facility] [address] Cole Ramos is a 62 year old [...] holds a paper. No falls are noted. [employer] was bought out and he is working on computer conversion through December 2022 - has to hold off on PT and GIS ADMINISTRATOR until then. There is a strong family [...] Neurology OT/PT/Speech Visit from 10/13/2021 in [facility] T [...] 2+ Patellar 2+ 2+ Right pathological reflexes: Rasehl's absent. Left pathological reflexes: Rashel's absent. Coordination Right: Yrejtj-bc-rtpl normal. Rapid alternating movement normal.Left: Mdhlzx-ai-lbgm normal. Rapid alternating movement normal. Gait Casual [...] the amplitude decrements starting after the 1st dnbi-shv-ihbyh sequence. Arm Movements Right 2-Mild. a) 3 [...] addressed during this visit: Pd (parkinson's disease) [facility]) (primary encounter diagnosis) Neuropathy, peripheral, hereditary Plan: Continue Sinemet Encouraged exercise - ~150 minutes of strenuous exercise weekly is recommended Defer until 12/26; PT at [place] Defer until 12/26; genetic counseling for testing for peripheral neuropathy Return in about 6 months (around 03/08/2023). Medical decision making was high complexity due to patient's, multiple symptoms, advancing disease,newly diagnosed Neurologic disease and counseling about fdc implications The total time spent on the patient care was 25 minutes with greater than 50% of the time spent on counseling regarding preparing to see the patient, eqlx-pa-skiv patient care, completing clinical documentation, obtaining and/or reviewing separately obtained history, performing a medically appropriate examination, counseling and educating the patient/family/caregiver, ordering medications, tests,or procedures, and communicating results to the patient/family/caregiver. I tried to answer all of the patient's questions and concerns during this visit. Tremayne Gibson DO Senior Staff Neurologist - [facility] documented in this encounterTogus Va Medical Center05-26-2022 Instructions* Patient Instructions* Tremayne Gibson [...] Reglan, Compazine or Phenergan. documented in this encounterTogus Va Medical Center05-26-2022 History of Present illness Narrative* Tremayne Gibson DO - 12/29/2021 2:10 PM EDT [facility] - FOLLOW UP EVALUATION Tremayne Gibson [address] [facility] [address] Cole Ramos is a 61 year old male with a history of IPD (idiopathic Parkinson's disease). He is seen with his . Interval History Since Last Visit: The patient has been following through with the GIS ADMINISTRATOR exercises on his drive to work. He notes mild depression. He has been using the treadmill. The short-term memory issues are still an issue. He notes continuing cognitive issues. The PT has been helpful - he notes more hbziu-uo-bxnivm. No falls arereported. The patient denies any [...] PROMIS-10 OT/PT/Speech Visit from 10/13/2021 in [facility] T [...] Left pathological reflexes: Rashel's absent. Coordination Right: Klejeb-ay-qhgj normal. Rapid alternating movement normal. Left: Vrhqzy-rf-ibal normal. Rapid alternating movement normal. Gait Casual [...] the amplitude decrements starting after the 1st lkht-bhz-rkuox sequence. Arm Movements Right 2-Mild. a) 3 [...] addressed during this visit: Pd (parkinson's disease) ([facility]) (primary encounter diagnosis) Plan: 1. Start [...] counseling regarding preparing to see the patient, yyye-hf-hoey patient care, completing clinical documentation, obtaining and/or reviewing separately obtained history, performing a medically appropriate examination, counseling and educating the patient/family/caregiver, ordering medications, tests,or procedures and communicating results to the patient/family/caregiver. I tried to answer all of the patient's questions and concerns during this visit. Tremayne Gibson DO Senior Staff Neurologist - [facility] documented in this encounterTogus Va Medical Center04-28-2022 History of Present illness Narrative* Janice Leon [facility]-GIS ADMINISTRATOR - 12/01/2021 8:55 AM EDT Episode Visit Count: 5 Therapist That Will Oversee The Plan Of Care: Janice Leon Start of Care Date: 10/13/21 Onset Date: 10/06/21 Plan of Care Certification Date: 10/13/21 Next Certification Due Date: 12/12/21 Patient Identified by Name and Date of : Yes [facility] SPEECH THERAPY [...] upright 90 degrees for all PO;Small Bite/Sip GIS ADMINISTRATOR Recommendations: Outpatient Speech Therapy Results and Recommendations Discussed With: Patient Planned Interventions, Frequency, and Duration: Planned Treatment Interventions: Cognitive-Linguistic Training (09982, 69533, 44257);Dysphagia Reduction Training (33214);Expressive Language Training (72850, 17987);Voice Training (79456) Current Frequency: 1x/week Duration: 4 weeks PLAN [...] reps each Laryngeal elevation/adduction exercises: 10 reps GIS ADMINISTRATOR administered DEEP PHARYNGEAL NEUROMUSCULAR STIMULATION to CN [...] 70.2 Sentences: 67.9 TREATMENT: Swallow / Dysphagia (36489): Skilled Intervention: Demonstrated, instructed, modeled and provided educational handout(s) for hyolaryngeal elevation and excursion manuevers and lingual ROM, lingual base ROM, pharyngeal ROM., Provided both written and video instruction for home exercise program to facilitate follow through with proper performance. , Provided neuromuscular reeducation of swallowing reflex via DPNS Speech/Language Therapy (34001): Skilled Intervention: Educated and instructed patient on [...] per 5 word sentences Billing: Speech Treatment (52195) and Dysphagia Treatment (22993) Total time / Length of visit: 60 minutes Janice Leon CCC-GIS ADMINISTRATOR documented in this encounterTogus Va Medical Center04-07-2022 Miscellaneous Notes* Addendum Note - Hero Cuellar, PT - 11/10/2021 9:37 AM EDT Addended by: HERO CUELLAR on: 11/10/2021 09:37 AM Modules accepted: Orders documented in this encounterTogus Va Medical Center04-07-2022 History of Present illness Narrative* Janice Leon, [facility]-GIS ADMINISTRATOR - 11/10/2021 9:04 AM EDT Episode Visit Count: 4 Therapist That Will Oversee The Plan Of Care: Janice Leon Start of Care Date: 10/13/21 Onset Date: 10/06/21 Plan of Care Certification Date: 10/13/21 Next Certification Due Date: 12/12/21 Patient Identified by Name and Date of : Yes [facility] SPEECH THERAPY [...] upright 90 degrees for all PO;Small Bite/Sip GIS ADMINISTRATOR Recommendations: Outpatient Speech Therapy Results and Recommendations Discussed With: Patient Planned Interventions, Frequency, and Duration: Planned Treatment Interventions: Cognitive-Linguistic Training (95535, 18041, 37514);Expressive Language Training (73297, 27258);Voice Training (15670);Dysphagia Reduction Training (18401) Current Frequency: 1x/week Duration: 4 weeks PLAN [...] 5 reps Pharyngeal ROM exercises: 10 reps GIS ADMINISTRATOR administered DEEP PHARYNGEAL NEUROMUSCULAR STIMULATION to CN V-XII sites with iced lemon glycerine swabs x 18. Patient demonstrated mild-strong gag response x 15, moderate to max lingual curling,moderate to max palatal lift and swallow reflexes of 2-3 seconds. TREATMENT: Swallow / Dysphagia (72272): Skilled Intervention: Demonstrated, instructed, modeled and provided [...] of swallowing reflex via DPNS. Speech/Language Therapy (49199): Skilled Intervention: Educated and instructed patient on compensatory strategies for vocal intensity, working memory, informtion processing Educated and instructed patient on memory recall strategies such as grouping. Provided verbal cues in vocal intensity. Provided and instructed patient per home exercise program. Current Home Program: facial/lingual/lingual base/laryngeal/pharyngeal exercises, working memory per 5 word sentences, memory using grouping, abstract categorical naming Billing: Speech Treatment (03425) and Dysphagia Treatment (31155) Total time / Length of visit: 75 minutes Janice Leon CCC-GIS ADMINISTRATOR documented in this encounterTogus Va Medical Center04-07-2022 History of Present illness Narrative* [...] Patient to be seen for Therapeutic exercise (27121);Neuromuscular re-education (94645);Manual therapy (25060);Therapeutic activities (29053);Self-usp management (16100);Gait Training (21002);Patient/Family/Caregiver Education;Functional training PLAN FOR NEXT VISIT: Return in 6 months to reperform outcome measures SUBJECTIVE: Patient Reason for Visit: Pt had a bout of headache and feeling off balance. Plans to discuss with timber sizer. Pt will be working with Dr. Galan [...] Gait belt utilized during session for safety. Self-Retirement Management: 1: Reviewed PD aerobic exercise intensity [...] 60 Hero Cuellar PT documented in [place] encounterAnna [place] [address]-04-2022 Miscellaneous Notes* Telephone Encounter - Darlene Jettmaster [facility] - 11/07/2021 1:09 PM EDT MBS results received via fax and available to view in scanned documents. Electronically signed by Darlene Frias [facility] at 11/07/2021 1:10 PM EDT documented in this encounterTogus Va Medical Center03-31-2022 History of Present illness Narrative* Janice Leon, [facility]-GIS ADMINISTRATOR - 11/03/2021 11:11 AM EDT Episode Visit Count: 3 Therapist That Will Oversee The Plan Of Care: Janice Leon Start of Care Date: 10/13/21 Onset Date: 10/06/21 Plan of Care Certification Date: 10/13/21 Next Certification Due Date: 12/12/21 Patient Identified by Name and Date of : Yes [facility] SPEECH THERAPY [...] 69.4 dB SPL TREATMENT: Swallow / Dysphagia (60101): Skilled Intervention: Provided education related to a [...] follow through with proper performance. Speech/Language Therapy (40267): Skilled Intervention: Educated and instructed patient on compensatory strategies for vocal intensity Provided verbal cues in vocal intensity. Provided and instructed patient per home exercise program. Current Home Program: facial/lingual/laryngeal elevation/adduction, lingual base, Billing: Treatment of Swallow Dysfunction (03721) Speech Treatment (12016) Total time / Length of visit: 45 minutes Janice Leon CCC-GIS ADMINISTRATOR documented in this encounterTogus Va Medical Center04-23-2021 NoteChief Complaint Referral per Dr. Pickett for Right Inguinal Hernia. 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) Unspecified persistent mental disorders due to conditions classified elsewhere Pharyngeal dysphagia Dysphagia, pharyngeal phase PD (Parkinson's disease) (HCC) Paralysis agitans [facility] Diagnosis Abnormality of gait- Primary PD (Parkinson's disease) (HCC) Paralysis agitans [facility] 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) Unspecified persistent mental disorders due to conditions classified elsewhere Pharyngeal dysphagia Dysphagia, pharyngeal phase PD (Parkinson's disease) (HCC) Paralysis agitans documented in this encounter [facility]* 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) Unspecified persistent mental disorders due to conditions classified elsewhere Pharyngeal dysphagia Dysphagia, pharyngeal phase PD (Parkinson's disease) (HCC) Paralysis agitans [facility]* Diagnosis PD (Parkinson's disease) (HCC)- Primary Paralysis agitans [facility]* Diagnosis PD (Parkinson's disease) (HCC)- Primary Paralysis agitans Neuropathy, peripheral, hereditary Hereditary peripheral neuropathy documented in this encounter [facility]* Diagnosis PD (Parkinson's disease) (HCC)- Primary Paralysis agitans [facility]* Diagnosis PD (Parkinson's disease) Paralysis agitans [facility]* Diagnosis PD (Parkinson's disease) (HCC)- Primary Paralysis agitans Sialorrhea Disturbance of salivary secretion 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 [facility] Diagnosis PD (Parkinson's disease) (HCC) Paralysis agitans documented in this encounter [facility]* Diagnosis PD (Parkinson's disease) (HCC) Paralysis agitans documented in this encounter [facility]* Diagnosis PD (Parkinson's disease) (HCC)- Primary Paralysis agitans Sialorrhea Disturbance of salivary secretion 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 documented in this encounter [facility]* Diagnosis PD (Parkinson's disease) (HCC) Paralysis agitans documented in this encounter [facility]* Diagnosis PD (Parkinson's disease) (HCC) Paralysis agitans documented in this encounter [facility]* Diagnosis Onset Date Resolution Status Admit Date Ascending aortic aneurysm acute October 06, 2024 9:20am Chronic kidney disease acute [facility] 2024 9:20am Hypercholesterolemia acute Carlos h 2024 9:20am Parkinson's disease acute October 06, 2024 9:20am Paroxysmal atrial fibrillation acute October 06, 2024 9:20am Screening PSA (prostate spec ific antigen) acute October 06, 2024 9:20am Symptomatic bradycardia acute M arch 2024 9:20am Wellness examination noneactive Carlos h 2024 9:20am [facility] Work Phone: Summary Purpose Family History Relationship Condition Age at Onset Recorded Date/T magno father Diabetes mellitus Unknown Heart disease Unknown Advance Directives Advance Directive Response Recorded Date/ Time Advance Directives No August 25, 2023 4:23pm Reason for Referral Specialty Diagnoses / Procedures Referred By Lyubov marks Referred To Contact [facility] Diagnoses Abnormality of gait PD (Parkinson's disease) ([facility]) Procedures PT REHAB FOLLOW UP ORDER THERAPEUTIC EXERCISES RE, EA 15 MIN. 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) Pharyngeal dysphagia PD (Parkinson's disease) (HCC) Procedures SPEECH REHAB FOLLOW UP ORDER TX SPEECH LANG VOICE COMMJ &/AUDITORY PROC IND Tremayne Gisbon DO [address] [place] [address] [facility] [place] [address] Referral ID Status Reason Start Date Expiration Date V isits Requested Visits Authorized [id number] Closed PCP Requested Referral Auto-Generated Referral 12/01/2021 03/01/2022 1 1 Specialty Diagnoses / Procedures Referred By Lyubov marks Referred To Contact Diagnoses PD (Parkinson's disease) (HCC) Procedures PROVIDER ORDERED FOLLOW UP OFFICE/OUTPATIENT NEW HIGH MDM 60-74 MINUTES Tremayne Gibson DO [address] [place] [address] Referral ID Status Reason Start Date Expiration Date V isits Requested Visits Authorized [id number] Authorized 07/01/2022 09/29/2022 1 1 Referral ID Status Reason Start Date Expiration Date V isits Requested Visits Authorized [id number] Authorized 03/08/2023 06/06/2023 1 1 Specialty Diagnoses / Procedures Referred By Lyubov marks Referred To Contact [facility] Diagnoses PD (Parkinson's disease) ([facility]) Procedures CONSULT TO PHYSICAL THERAPY PHYSICAL THERAPY EVALUATION HIGH COMPLEX 45 MINS Tremayne Gibson DO [address] [place] [address] [facility] [address] [address] [place] [address] Referral ID Status Reason Start Date Expiration Date Visits Requested Visits Authorized [id number] Pending Review Auto-Generat ed Referral 12/15/2022 11/23/2023 1 1 Specialty Diagnoses / Procedures Referred By Lyubov marks Referred To Contact Diagnoses PD (Parkinson's disease) ([facility]) Sialorrhea RBD (REM behavioral disorder) Procedures PROVIDER ORDERED FOLLOW UP OFFICE/OUTPATIENT NEW HIGH MDM 60 MINUTES Tremayne Gibson DO [address] [place] [address] Referral ID Status Reason Start Date Expiration Date V isits Requested Visits Authorized [id number] Authorized 05/16/2024 08/14/2024 1 1 Specialty Diagnoses / Procedures Referred By Lyubov marks Referred To Contact Diagnoses PD (Parkinson's disease) (HCC) Procedures PROVIDER ORDERED FOLLOW UP OFFICE/OUTPATIENT [facility] 60 MINUTES Tremayne Gibson DO [address] [place] [address] Referral ID Status Reason Start Date Expiration Date V isits Requested Visits Authorized [id number] Authorized 11/27/2024 02/25/2025 1 1 Chief Complaint [...] section and content) DATE CREATED AUTHOR 02/11/2021 [facility] DATE CREATED AUTHOR AUTHOR'S ORGANIZ ATION 10/10/2022 [facility] DATE CREATED AUTHOR AUTHOR'S ORGANIZ ATION 05/04/2024 [facility] DATE CREATED AUTHOR AUTHOR'S ORGANIZ ATION 08/20/2024 [facility] DATE CREATED AUTHOR AUTHOR'S ORGANIZ ATION 09/03/2024 [facility] Source Comments (unrecognize d section and content) In the event this informatio n is protected by the Federal Confidentiality of Alcohol and Drug Abuse Patient Records regulations: The Federal rules restrict any use of the information to criminally investigate or prosecute any alcohol or drug abuse patient.[facility] CenterIn the event this information is protected by the Federal Confidentiality of Alcohol and Drug Abuse Patient Records regulations: The Federal rules restrict any use of the information to criminally investigate or prosecute any alcohol or drug abuse patient.[facility] CenterIn the event this information is protected by the Federal Confidentiality of Alcohol and Drug Abuse Patient Records regulations: The Federal rules restrict any use of the information to criminally investigate or prosecute any alcohol or drug abuse patient.[facility] CenterIn the event this information is protected by the Federal Confidentiality of Alcohol and Drug Abuse Patient Records regulations: The Federal rules restrict any use of the information to criminally investigate or prosecute any alcohol or drug abuse patient.[facility] CenterIn the event this information is protected by the Federal Confidentiality of Alcohol and Drug Abuse Patient Records regulations: The Federal rules restrict any use of the information to criminally investigate or prosecute any alcohol or drug abuse patient.[facility] CenterIn the event this information is protected by the Federal Confidentiality of Alcohol and Drug Abuse Patient Records regulations: The Federal rules restrict any use of the information to criminally investigate or prosecute any alcohol or drug abuse patient.[facility] CenterIn the event this information is protected by the Federal Confidentiality of Alcohol and Drug Abuse Patient Records regulations: The Federal rules restrict any use of the information to criminally investigate or prosecute any alcohol or drug abuse patient.[facility] CenterIn the event this information is protected by the Federal Confidentiality of Alcohol and Drug Abuse Patient Records regulations: The Federal rules restrict any use of the information to criminally investigate or prosecute any alcohol or drug abuse patient.[facility] CenterIn the event this information is protected by the Federal Confidentiality of Alcohol and Drug Abuse Patient Records regulations: The Federal rules restrict any use of the information to criminally investigate or prosecute any alcohol or drug abuse patient.[facility] CenterIn the event this information is protected by the Federal Confidentiality of Alcohol and Drug Abuse Patient Records regulations: The Federal rules restrict any use of the information to criminally investigate or prosecute any alcohol or drug abuse patient.[facility] Center[facility] the event this information is protected by the Federal Confidentiality of Alcohol and Drug Abuse Patient Records regulations: The Federal rules restrict any use of the information to criminally investigate or prosecute any alcohol or drug abuse patient.[facility] Center[facility] the event this information is protected by the Federal Confidentiality of Alcohol and Drug Abuse Patient Records regulations: The Federal rules restrict any use of the information to criminally investigate or prosecute any alcohol or drug abuse patient.[facility] Center[facility] the event this information is protected by the Federal Confidentiality of Alcohol and Drug Abuse Patient Records regulations: The Federal rules restrict any use of the information to criminally investigate or prosecute any alcohol or drug abuse patient.[facility] Center[facility] the event this information is protected by the Federal Confidentiality of Alcohol and Drug Abuse Patient Records regulations: The Federal rules restrict any use of the information to criminally investigate or prosecute any alcohol or drug abuse patient.[facility] Center[facility] the event this information is protected by the Federal Confidentiality of Alcohol and Drug Abuse Patient Records regulations: The Federal rules restrict any use of the information to criminally investigate or prosecute any alcohol or drug abuse patient.[facility] Center[facility] the event this information is protected by the Federal Confidentiality of Alcohol and Drug Abuse Patient Records regulations: The Federal rules restrict any use of the information to criminally investigate or prosecute any alcohol or drug abuse patient.[facility] Center[facility] the event this information is protected by the Federal Confidentiality of Alcohol and Drug Abuse Patient Records regulations: The Federal rules restrict any use of the information to criminally investigate or prosecute any alcohol or drug abuse patient.[facility] Center[facility] the event this information is protected by the Federal Confidentiality of Alcohol and Drug Abuse Patient Records regulations: The Federal rules restrict any use of the information to criminally investigate or prosecute any alcohol or drug abuse patient.[facility] Center[facility] the event this information is protected by the Federal Confidentiality of Alcohol and Drug Abuse Patient Records regulations: The Federal rules restrict any use of the information to criminally investigate or prosecute any alcohol or drug abuse patient.[facility] Reason for Visit (unrecogniz ed section and content) Reason Comments Speech Progress Note Specialty Diagnoses / Procedures Referred By Contac t Referred To Contact SPEECH THERAPY Diagnoses PD (Parkinson's disease) (HCC) Procedures CONSULT TO SPEECH THERAPY OFFICE/OUTPATIENT [facility] 60-74 MINUTES EVAL SPEECH SOUND PRODUCT LANGUAGE COMPREHENSION TX SPEECH LANG VOICE COMMJ &/AUDITORY PROC IND Tremayne Gibson, DO [address] [place] [address] Speech [facility] [place] [facility] [address] [address] Referral ID Status Reason Start Date Expiration Date Visits Requested Visits Authorized [id number] Authorized Auto-Generat ed Referral 10/07/2021 08/05/2022 30 30 Reason Comments Speech Therapy Reason Comments Physical Therapy PT Progress Note Specialty Diagnoses / Procedures Referred By Lyubov t Referred To Contact PHYSICAL THERAPY Diagnoses PD (Parkinson's disease) ([facility]) Procedures CONSULT TO PHYSICAL THERAPY PHYSICAL THERAPY EVALUATION HIGH COMPLEX 45 MINS THERAPEUTIC EXERCISES RE, EA 15 MIN. Tremayne Gibson, DO [address] [place] [address] [facility] [address] [address] Referral ID Status Reason Start Date Expiration Date Visits Requested Visits Authorized [id number] Authorized Auto-Generat ed Referral 10/07/2021 08/05/2022 30 30 Reason Comments Speech Progress Note Specialty Diagnoses / Procedures Referred By Lyubov t Referred To Contact SPEECH THERAPY Diagnoses PD (Parkinson's disease) ([facility]) Procedures CONSULT TO SPEECH THERAPY OFFICE/OUTPATIENT [facility] 60-74 MINUTES EVAL SPEECH SOUND PRODUCT LANGUAGE COMPREHENSION TX SPEECH LANG VOICE COMMJ &/AUDITORY PROC IND Tremayne Gibson, DO [address] [place] [address] Speech [facility] [address] [phone] Reason Comments Results MBS Reason Comments Established Patient Tremor Tremors little worse Numbness in both feet mostly left Specialty Diagnoses / Procedures Referred By Lyubov t Referred To Contact Diagnoses PD (Parkinson's disease) ([facility]) Procedures PROVIDER ORDERED FOLLOW UP OFFICE/OUTPATIENT [facility] MDM 60-74 MINUTES Tremayne Gibson, DO [address] [place] [address] Referral ID Status Reason Start Date Expiration Date Visits Re quested Visits Authorized [id number] Closed 07/01/2022 09/29/2022 1 1 Reason Comments Forms Reason Comments Follow Up Specialty Diagnoses / Procedures Referred By Lyubov marks Referred To Contact Diagnoses PD (Parkinson's disease) Procedures PROVIDER ORDERED FOLLOW UP OFFICE/OUTPATIENT [facility] 60-74 MINUTES Tremayne Gibson DO [address] [place] [address] Referral ID Status Reason Start Date Expiration Date Visits Re quested Visits Authorized [id number] Closed 03/08/2023 06/06/2023 1 1 Reason Comments Follow Up Follow up on Vanessa ons Reason Onset Date Comments Refill Request 01/30/2024 Reason Comments Follow Up Parkinson's Disease Per patient statemen t, My timber sizer wants me to start Lipitor and I wanted to check with him prior to starting. Patient conts with P.T. and is going well. Specialty Diagnoses / Procedures Referred By Lyubov marks Referred To Contact Diagnoses PD (Parkinson's disease) (HCC) Sialorrhea RBD (REM behavioral disorder) Procedures PROVIDER ORDERED FOLLOW UP OFFICE/OUTPATIENT [facility] MDM 60 MINUTES Tremayne Gibson, DO [address] [place] [address] Referral ID Status Reason Start Date Expiration Date Visits Re quested Visits Authorized [id number] Closed 05/16/2024 08/14/2024 1 1 Reason Onset Date Comments Refill Request 08/04/2024 Reason Onset Date Comments Refill Request 09/02/2024 Care Teams (unrecognized sec tion and content) Blending Tank Tender Helper Relationship Specialty Start Date End Date Taras Pickett DO [address] [place] [address] PCP - General Internal Medicine 05/29/24 Blending Tank Tender Helper Relationship Specialty Start Date End Date Kacy Taras DO Jhonathan [address] [place] [address] PCP - General Internal Medicine 05/29/24 Blending Tank Tender Helper Relationship Specialty Start Date End Date Kacy Taras Jara [address] [place] [address] PCP - General Internal Medicine 05/29/24 Blending Tank Tender Helper Relationship Specialty Start Date End Date Kacy Taras Jara DO [address] [place] [address] PCP - General Internal Medicine 05/29/24 Team [...] BE BASED ON THE PRIMARY CLINICAL RECORDS. [facility]. provides no warranty or guarantee of the accuracy or completeness of information in this document.
--- NOTE | 2024-10-15 13:00 | CA_ITS ---
Patient Name: COLE KNOWLES MR#: [id number] : 1960 Exam Date: 10/15/2024 Ordering Doctor: SATHISH BROOKE ECHOCARDIOGRAM REPORT PROCEDURE: CA ECHO DOPPLER COMPLETE INDICATIONS: Dilatation of aorta, pacemaker - neurocardiogenic syncope COMPARISON: None. DESCRIPTION: COMPLETE ECHOCARDIOGRAM Real-time transthoracic echocardiography with 2D, M-mode, spectral and color flow Doppler performed. QUALITY: Technical quality was good. LEFT VENTRICLE: Normal chamber size. Mild concentric left ventricular hypertrophy. LV EF: Normal left ventricular systolic function without wall motion abnormalities, ejection fraction 60%. DIASTOLIC: Normal diastolic function. ATRIAL SEPTUM: Visually appears intact. LEFT ATRIUM: Normal chamber size. RIGHT ATRIUM: Normal chamber size. RIGHT VENTRICLE: Normal chamber size. Normal right ventricular systolic function. Pacemaker leads noted in the right cardiac chambers TRICUSPID VALVE: Normal mobility and thickness. No stenosis with trivial regurgitation. No evidence of pulmonary hypertension.RVSP 23 mmHg MITRAL VALVE: Normal mobility and thickness. No evidence of mitral valve stenosis. There is no mitral annular calcification. No mitral regurgitation. AORTIC VALVE: Normal trileaflet appearance. No visible sclerosis. Normal leaflet mobility. No evidence of aortic valve stenosis. Trivial aortic regurgitation. AORTIC ROOT: Aortic annulus is dilated (4.3 cm). Ascending aorta is dilated (4.5 cm). Aortic arch is normal in size. PULMONIC VALVE: Normal thickness and mobility. Normal with Trivial regurgitation. PERICARDIUM: No evidence of pericardial effusion. IVC: Normal size, it collapes with inspirations. PLEURA: CONCLUSION: Mild concentric left ventricle hypertrophy Normal left ventricle systolic function without wall motion abnormalities, ejection fraction 60% Normal left ventricle diastolic function Normal right ventricle size and systolic function Pacemaker leads noted within the right cardiac chambers Normal right-sided pressures Dilated ascending aorta with max diameter 4.5 cm Trivial aortic insufficiency Adult Echocardiography Procedure Report Left Ventricle LVEDD (3.7 - 5.6 cm): 4.36 cm LVESD (2.2 - 4.0 cm): 2.89 cm LVIVS thickness (0.6 - 1.2 cm): 1.09 cm LVPW thickness (0.5 - 1.0 cm): 1.09 cm e': 0.07 m/s E - e': 5.82 LVOT Max Gradient: 1.73 mm[Hg] LVOT Area (cm2): 0.66 m/s Peak Velocity (LVOT): 0.66 m/s Mean Velocity (LVOT): 0.40 m/s LVOT Diameter 2.64 cm Left Ventricular Ejection Fraction: Left Atrium LA Volume Index (2D A2C): 28.37 ml/m2 Left Atrium Systolic Dimension: 4.08 cm Mitral Valve MV E to A Ratio: 0.73 MV Max Gradient: MV Mean Gradient: Mitral Valve A-Wave Peak Velocity: 0.55 m/s Mitral Valve E-Wave Peak Velocity: 0.40 m/s Cardiovascular Orifice Area: Right Ventricle RV Internal Diastolic Dimension: Aorta AO Root Diam: 4.29 cm Ascending Ao Diam: 3.82 cm Aortic Valve AoV Area (Peak Umang): 4.39 cm2, 4.39 cm2 AoV Area (VTI): 4.01 cm2, 4.01 cm2 Deceleration Loving: Pressure Half-Time: Peak Velocity(Antegrade Flow): 0.82 m/s Peak Gradient(Antegrade Flow): 2.68 mm[Hg] Mean Velocity(Antegrade Flow): 0.52 m/s Mean Gradient(Antegrade Flow): 1.29 mm[Hg] Velocity Time Integral: 18.97 cm Tricuspid Valve Peak Velocity (Regurgitant Flow): 2.26 m/s Peak Velocity: Pulmonic Valve Mean Gradient: 1.09 mm[Hg] Mean Velocity: 0.48 m/s Peak Velocity: 0.76 m/s, 0.73 m/s Peak Gradient: 2.15 mm[Hg], 2.30 mm[Hg] Right Atrium Right Atrium Systolic Pressure: 50.49 ml, 50.49 ml Dictated by: Lamine Hopper MD on 10/15/2024 at 18:15 Approved by: Lamine Hopper MD on 10/15/2024 at 18:24
== END 2024-10-15 12:34 | disposition home or self-care (01) ==
LOC: CARD 12:33
PROVIDERS: PCP Internal Medicine
DX: I77.819 Aortic ectasia, unspecified site (principal); Z95.0 Presence of cardiac pacemaker
CPT/HCPCS: 93306

== ENCOUNTER 2024-10-16 10:24 | Outpatient (OUT) | payer OTHER, SELFPAY ==
--- OUTSIDE RECORDS SUMMARY | 2024-10-15 12:29 | XMS_ITS | CCD ---
Author Organization [facility] Care Team Providers Care Ambulatory Care Coordinator Name Role Phone Unavailable Primary Care Provider Sherlyn PICKETT, DR HANNAH Admitting Unavailable KACY, DR HANNAH Attending Unavailable KACY, DR HANNAH Primary Care Unavailable KACY, DR HANNAH Consulting Unavailable MISC, DR HU Admitting Unavailable MISC, DR HU Attending Unavailable KACY, DR HANNAH Primary Care Unavailable MISC, DR HU Consulting Unavailable ZIEBER, DR MAMIE Contreras Consulting Unavailable Tabby Lindo Unavailable Taras Pickett Unavailable Unavailable Primary Care Provider Unavailkayleigh jara Unavailable Primary Care Provider UnavailTaras Chavez DO Primary Care Provider TREMAYNE GIBSON Attending Unavailable TREMAYNE GIBSON Referring Unavailable TREMAYNE GIBSON Attending Unavailable EYAL TODD Referring Unavailable EYAL TODD Attending Unavailable SATHISH SANDRA Attending Unavailable EYAL TODD Referring Unavailable EYAL TODD Referring Unavailable MT BAJWA Attending Unavailable Medications Current Medications Medication Drug Class(es) Dates Sig (Normalized) Sig (Original) aspirin 325 mg oral tablet (20 sources) Platelet Aggregation Inhibitor, Nonsteroidal Anti-inflammatory Drug Start: 10-03-2023 take 1 tablet by mouth once daily Aspirin 325 mg tablet Active 325 MG PO Daily October 03, 2023 12:00am Comment on above: Take 325 mg by mouth once daily. atorvastatin 80 mg oral tablet (5 sources) HMG-CoA Reductase Inhibitor Start: 10-06-2024 Atorvastatin 80 mg tablet Active MG PO October 06, 2024 12:00am take 1 tablet by mouth once jen y atorvastatin (LIPITOR) 40 mg tablet Take 40 mg by mouth once daily. Active carbidopa 25 mg / levodopa 100 mg oral tablet (20 sources) Aromatic Amino Acid Decarboxylation Inhibitor, Aromatic Amino Acid Start: 09-03-2024 take 1 tablet by mouth four times daily carbidopa-levodopa (SINEMET) 25-100 mg per tablet Indications: PD (Parkinson's disease) (HCC) Take 1 tablet by mouth four times daily. 120 tablet 11 09/03/2024 Active Start: 01-31-2024 End: 09-02-2024 take 1 tablet by mouth four times daily carbidopa-levodopa (SINEMET) 25-100 mg per tablet Indications: PD (Parkinson's disease) (HCC) Take 1 tablet by mouth four times daily. 120 tablet 08/04/2024 09/02/2024 Discontinued Start: 10-03-2022 take 1 tablet by bushra th every eight hours Sinemet 10-100 MG 1 tablet Orally Three times a day for 30 days Sep, Active Start: 12-29-2021 End: 11-14-2024 take 1 tablet by mouth three times daily Carbidopa-Levodopa 25-100 mg tablet Active 1 TAB PO Three times daily October 03, 2023 12:00am Carbidopa-Levodo pa 25-100 MG TAKE 1 TABLET BY MOUTH THREE TIMES A DAY FOR 30 DAYS for 90 days replaces previous script sent Active Comment on above: Take 1 tablet by bushra th three times daily. Take 1 tablet by bushra th three times a day. 24 hr dilTIAZem hydrochloride 240 mg extended release oral capsule (20 sources) Calcium Channel Eugenio Start: 4 take 1 capsule by mouth once daily Diltiazem Hcl 240 mg capsule,extended release 24hr Active 240 MG PO Daily October 03, 2023 12:00am Comment on above: Take 240 mg by [...] a day for 5 day(s) Sep, Not-Taking/PRN benzonatate 100 mg oral capsule (3 sources) Non-narcotic Antitussive Start: 10-03-2023 End: 10-04-2023 take 1 capsule by mouth three times daily as needed Benzonatate 100 mg capsule Discontinued 100 MG PO Three times daily as needed October 03, 2023 12:00am October 04, 2023 8:58am Start: 08-10-2023 take 1 capsule by mo uth every eight hours Benzonatate 100 MG 1 capsule as needed Orally Three times a day for 10 days Aug, Active predniSONE 20 mg oral tablet (12 sources) [...] Episodic Aortic; peripheral; and visceral artery aneurysms (4 sources) Aortic ectasia, unspecified site; Translations: [Aneurysm of ascending aorta] Onset: 04-03-2023 Chronic Comment on above: CTA: 4.2cm - 2019, 4 .2cm - 2023 Cardiac dysrhythmias (13 sources) Paroxysmal atrial fibrillation; Translations: [Paroxysmal atrial fibrillation] Onset: 04-03-2023 Chronic Cardiac dysrhythmias (8 sources) Bradycardia; Translations: [Bradycardia, unspecified] 10-03-2024 Episodic Chronic kidney disease (5 sources) Chronic kidney disease stage 3; Translations: [Chronic kidney disease, stage 3 unspecified] Onset: 05-06-2018 10-03-2024 Chronic Chronic obstructive pulmonary disease and bronchiectasis (3 sources) Bronchitis; Translations: [Bronchitis NOS] Episodic Conduction disorders (16 sources) Presence of cardiac pacemaker; Translations: [Cardiac pacemaker] Onset: 04-03-2023 Chronic Diseases of mouth; excluding dental (3 sources) Excessive salivation; Translations: [Disturbances of salivary secretion] Onset: 05-29-2024 11-15-2023 Episodic Disorders of lipid metabolism (17 sources) Hypercholesterolemi a; Translations: [Pure hypercholesterolemi a, unspecified] Onset: 05-06-2018 Chronic Headache; including migraine (10 sources) Migraine; Translations: [Migraine, unspecified, not intractable, without status migrainosus] 10-03-2023 Chronic Headache; including migraine (3 sources) Headache; Translations: [Headache, unspecified] Episodic Hyperplasia of prostate (17 sources) Lower urinary tract symptoms due to benign prostatic hypertrophy; Translations: [Benign prostatic hyperplasia with lower urinary tract symptoms] Chronic Other acquired deformities (3 sources) Acquired spondylolisthesis; Translations: [Spondylolisthesis, lumbosacral region] Episodic Other nervous system disorders (20 sources) Hereditary peripheral neuropathy; Translations: [Hereditary and idiopathic neuropathy, unspecified] Onset: 10-06-2021 10-06-2021 Chronic Other nervous system disorders (4 sources) Polyneuropathy; Translations: [Polyneuropathy, unspecified] 10-03-2023 Chronic Other nervous system disorders (1 source) [...] conditions (not mental disorders or infectious disease) (3 sources) Encounter for screening for malignant neoplasm of prostate; Translations: [Patient encounter status] Onset: 10-08-2022 10-06-2024 Episodic Parkinson`s disease (20 sources) Impaired cognition; [...] (1 source) Syncope and collapse Episodic Unclassified (19 sources) Parkinson's disease; Translations: [PD (Parkinson's disease)] Onset: 10-06-2021 05-10-2023 Chronic Unclassified (1 source) PD (Parkinson's disease) (HCC); Translations: [PD (Parkinson's disease) (HCC)] Onset: 10-06-2021 Unclassified (1 source) Aneurysm of the ascending aorta, without rupture; Translations: [Aneurysm of the ascending aorta, without rupture] Onset: 04-16-2024 Past or Other Problems Problem Classification Problem Date Documented Da te Episodic/Chronic Noninfectious gastroenteritis (3 sources) Non-infective enteritis and colitis; Translations: [Noninfective gastroenteritis and colitis, unspecified] Onset: 11-17-2014 Episodic Other gastrointestinal disorders (20 sources) Pharyngeal dysphagia; Translations: [Dysphagia, pharyngeal phase] Onset: 10-13-2021 Episodic Other gastrointestinal disorders (4 sources) Dysphagia, pharyngeal phase; Translations: [DYSPHAGIA PHARYNGEAL PHASE] Onset: 11-01-2021 Episodic Other nervous system disorders (20 sources) Abnormal gait; Translations: [Unspecified abnormalities of gait and mobility] Onset: 10-14-2021 10-14-2021 Episodic Other upper respiratory disease (9 sources) Hypokinetic parkinsonian dysphonia; 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 Can you let patient know I reviewed his lab work- specifically his lipids. His total cholesterol is 206, and we would like it to be below 200. His LDL is elevated as well at 141, would ideally like it to be below 100. Can you let him know I have increased his dose of atorvastatin from 40 mg to 80 mg. I sent this to his pharmacy on file. I will also place an order for CMP and lipids to be drawn again in 3 months to re-check levels. Thanks! Spoke with patient and he prefers to wait and talk to Dr. Todd at his next apt on 09/02/24. He is hesitant to make a med change in Dec, as there are lots of things going on for him. Normal [facility] Orders Onlyon 07-02-2024 Orders Only [id number] Jurgen Ramos farideh S 1960 Provider Department Center 07/02/2024 [id number] POE [facility] CARD [facility] No family history on file Normal [facility] CNOVon 05-29-2024 CNOV Office Visit (NRESAV ) -------- COLE RAMOS ([id number]) 1960 M Date Time Provider Department 05/29/24 1:00 PM TREMAYNE GIBSON NRESAV During your visit today, we recorded the following information about you: Pulse Blood pressure 74/minute 141/85 Tremayne Gibson, DO 05/29/2024 1:39 PM Signed [facility] - FOLLOW UP EVALUATION Taras Pickett DO [address] [id number] Dear Taras Pickett DO: I had the [...] Examination: G (more content not included)... Normal [facility]03[facility] COLE RAMOS ([id number]) 1960 M Date Time Provider Department 05/03/24 MARI ROSAS FVPRAD During your visit today, we recorded the following information about you: Mari Rosas DO 05/03/2024 12:42 PM Signed Patient called stating he was out of town and needed 10 pills of Sinemet to [facility] in [place]. 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 Encounter Status:Closed by MARI ROSAS on 05/03/24 [facility] 37on 04-16-2024 37 Start taking lipitor 40 mg daily in the evening or prior to bed. Call the office if any muscle aches or concerns. Have follow up labs drawn in 2-3 months (June or July). Must be fasting labs. Normal [facility] Office Visiton 04-16-2024 Follow-up visit [id number] Jurgen Ramos Juanita 1960 M Date Provider Department Center 04/16/2024 [id number] SANDRA ADRIANO [facility] No family history on file Level of Service:02379 [place] OFFICE/OUTPATIENT ESTABLISHED MOD MDM 30 MIN [facility] CNOVon 11-15-2023 CNOV Office Visit (NRESAV ) -------- COLE RAMOS ([id number]) 1960 M Date Time Provider Department 11/15/23 11:00 AM TREMAYNE GIBSON NRESAV During your visit today, we recorded the following information about you: Pulse Blood pressure 106/minute 141/75 Tremayne Gibson, 11/15/2023 11:55 AM Signed [facility] - FOLLOW UP EVALUATION Cole Ramos is a 63 year old male [...] Left pathological reflexes: Rashel's absent. Coordination Right: Esohua-yd-[id number] normal. Rapid alternating movement normal.Left: [id number]-[id number] normal. Rapid alternating movement normal. Gait Casual [...] Left MDS (more content not included)... Normal [facility] 36on 10-05-2023 36 Regarding CTA chest performed on 10/03/2023: BECKY Dietz MA It is stable, 4.2cmx4.2cm, we will ct to monitor Patient informed. Normal [facility] Office Visiton 09-26-2023 Follow-up visit [id number] Jurgen Ramos S 1960 M Date Provider Department Center 09/26/2023 [facility] No family history on file Level of Service:52423 [place] OFFICE/OUTPATIENT ESTABLISHED MOD MDM 30 MIN Normal [facility] CBC AUTO DIFFon 10-03-2022 BASO # 0.0 103/ul Normal 0.0-0.1 [facility] Comment on above: Performed By: #### C BC #### [facility] [address] [place] [address] Dr. Rosalio Burks Basophils/100 WBC (Bld) 0.3 % Normal 0.2-2.0 [facility] Comment on above: Performed By: #### C BC #### [facility] [address] [place] [address] Dr. Rosalio Burks EO # 0.1 103/ul Normal 0.0-0.7 [facility] Comment on above: Performed By: #### C BC #### [facility] [address] [address] [address] Rosalio Burks Eosinophils/100 WBC (Bld) 1.0 % Normal 0.9-7.0 [facility] Comment on above: Performed By: #### C BC #### [facility] [address] [address] [address] Rosalio Burks Erythrocyte distribution width (RBC) [Ratio] 11.7 % Normal 11.0-15.0 [facility] Comment on above: Performed By: #### C BC #### [facility] [address] [place] [address] Dr. Rosalio Burks Hematocrit (Bld) [Volume fraction] 43.2 % Normal 42.0-54.0 [facility] Comment on above: Performed By: #### C BC #### [facility] [address] [place] [address] Dr. Rosalio Burks Hemoglobin (Bld) [Mass/Vol] 15.0 g/dL Normal 14.0-18.0 [facility] Comment on above: Performed By: #### C BC #### [facility] [address] [place] [address] Dr. Rosalio Burks IG # 0.02 10e3/ul Normal 0.00-0.03 [facility] Comment on above: Performed By: #### C BC #### [facility] [address] [place] [address] Dr. Rosalio Burks IG % 0.3 % Normal 0.0-0.5 [facility] Comment on above: Performed By: #### C BC #### [facility] [address] [place] [address] Dr. Rosalio Burks LYMPH # 1.5 103/ul Normal 1.2-3.8 [facility] Comment on above: Performed By: #### C BC #### [facility] [address] [place] [address] Dr. Rosalio Burks Lymphocytes/100 WBC (Bld) 23.3 % Normal 20.5-60.0 [facility] Comment on above: Performed By: #### C BC #### [facility] [address] [place] [address] Dr. Rosalio Burks MANUAL DIFF REQ NO Normal [facility] Comment on above: Performed By: #### C BC #### [facility] [address] [place] [address] Dr. Rosalio Burks MCH (RBC) [Entitic mass] 31.9 pg Normal 25.9-34.0 [facility] Comment on above: Performed By: #### C BC #### [facility] [address] [place] [address] Dr. Rosalio Burks MCHC (RBC) [Mass/Vol] 34.7 g/dL Normal 29.9-35.2 [facility] Comment on above: Performed By: #### C BC #### [facility] [address] [place] [address] Dr. Rosalio Burks MCV (RBC) [Entitic vol] 91.9 fL Normal 80.0-94.0 [facility] Comment on above: Performed By: #### C BC #### [facility] [address] [place] [address] Dr. Rosalio Burks MONO # 0.6 103/ul Normal 0.3-0.8 [facility] Comment on above: Performed By: #### C BC #### [facility] [address] [place] [address] Dr. Rosalio Burks Monocytes/100 WBC (Bld) 10.1 % Normal 1.7-12.0 [facility] Comment on above: Performed By: #### C BC #### [facility] [address] [place] [address] Dr. Rosalio Burks NEUT # 4.0 103/ul Normal 1.4-6.5 [facility] Comment on above: Performed By: #### C BC #### [facility] [address] [place] [address] Dr. Rosalio Burks Neutrophils/100 WBC (Bld) 65.0 % Normal 43.0-75.0 [facility] Comment on above: Performed By: #### C BC #### [facility] [address] [place] [address] Dr. Rosalio Burks Platelet mean volume (Bld) [Entitic vol] 10.3 fL Normal 9.5-13.5 [facility] Comment on above: Performed By: #### C BC #### [facility] [address] [place] [address] Dr. Rosalio Burks PLT 268 103/ul Normal 150-450 [facility] Comment on above: Performed By: #### C BC #### [facility] [address] [place] [address] Dr. Rosalio Burks RBC 4.70 106/ul Normal 4.70-6.10 [facility] Comment on above: Performed By: #### C BC #### [facility] [address] [place] [address] Dr. Rosalio Burks WBC 6.2 103/ul Normal 4.0-11.0 [facility] Comment on above: Performed By: #### C BC #### [facility] [address] [place] [address] Dr. Rosalio Burks Complete Blood Count and Dif gerald 10-03-2022 Anisocytosis Ql (Bld) [employer] Other Basophilic stippling LM Ql (Bld) [employer] Other RBC morphology finding Nom (Bld) [employer] Other Complete Blood Count and Diff [employer] Other Comprehensive Metabolic Pane laura 10-03-2022 Albumin [Mass/Vol] 3.222256 g/dL 3.4-5.0 g/dL [employer] Other Calcium [Mass/Vol] 9.8630287 mg/dL 8.5-10.1 mg/dL [employer] Other CO2 [Moles/Vol] 30.92233030 mmol/L 21.0-3 2.0 mmol/L [employer] Other Creatinine [Mass/Vol] 1.52077005 mg/dL 0.70-1.30 mg/dL [employer] Other Potassium [Moles/Vol] 4.57650870 mmol/L 3.5-5.1 mmol/L [employer] Other Protein [Mass/Vol] 7.337181 g/dL 6.4-8.2 g/dL [employer] Other Urea nitrogen [Mass/Vol] 17.4089412 mg/dL 7.0-18.0 mg/dL [employer] Other Comprehensive Metabolic Panel see note [employer] Other Comprehensive Metabolic Panel 141 mmol/L 136-145 mmol/L [employer] Other Comprehensive Metabolic Panel 83 mg/dL 74-106 mg/dL [employer] Other Comprehensive Metabolic Panel >60 mL/min/1.73m2 >=60 mL/min/1.73m2 [employer] Other Comprehensive Metabolic Panel 0.3 mg/dL 0.2-1.0 mg/dL [employer] [facility] [employer] Other Comprehensive Metabolic Panel 3.4 g/dL [employer] Other LIPID PROFILEon 10-03-2022 CHOL-HDL RATIO NORM SEE BELOW Normal [facility] Comment on above: Result Comment: 3.3 - 4.4 LOW RISK 4.4 - 7.1 AVERAGE RISK 7.1 - 11.0 MODERATE RISK >11.0 HIGH RISK Performed By: #### C MP, LIPID #### [facility] [address] [address] [address] Rosalio Burks Cholesterol [Mass/Vol] 202 mg/dL Critically high <=200 mg/dL [facility] Comment on above: Performed By: #### C MP, LIPID #### [facility] [address] [address] [address] Rosalio Burks Cholesterol in HDL [Mass/Vol] 33 mg/dL Critically low 40-60 mg/dL [facility] Comment on above: Performed By: #### C MP, LIPID #### [facility] [address] [address] [address] Rosalio Burks Cholesterol in LDL [Mass/Vol] 106.4 mg/dL Normal [facility] Comment on above: Performed By: #### C MP, LIPID #### [facility] [address] [address] [address] Rosalio Burks Cholesterol.total /Cholesterol in HDL [Mass ratio] 6.1 {ratio} [facility] Comment on above: Performed By: #### C MP, LIPID #### [facility] [address] [address] [address] Rosalio Burks HDL NORMAL > or = 60 mg/dl - LO W CARDIOVASCULAR RISK <40 mg/dl - HIGH CARDIOVASCULAR RISK Normal [facility] Comment on above: Performed By: #### C MP, LIPID #### [facility] [address] [address] [address] Rosalio Burks LDL CALC NORMAL SEE BELOW Normal [facility] Comment on above: Result Comment: <100 mg/dl OPTIMAL 100 - 129 mg/dl NEAR OR ABOVE OPTIMAL 130 - 159 mg/dl BORDERLINE HIGH 160 - 189 mg/dl HIGH >190 mg/dl VERY HIGH Performed By: #### C MP, LIPID #### [facility] [address] [place] [address] Dr. Rosalio Burks Triglyceride [Mass/Vol] 313 mg/dL Critically high <=150 mg/dL [facility] Comment on above: Performed By: #### C MP, LIPID #### [facility] [address] [address] [address] Rosalio Burks VLDL CALC 62.6 mg/dL Normal [facility] Comment on above: Performed By: #### C MP, LIPID #### [facility] [address] [address] [address] Rosalio Burks Lipid Panelon 10-03-2022 Lipid Panel > or = 60 mg/dl - LO W CARDIOVASCULAR RISK <40 mg/dl - HIGH CARDIOVASCULAR RISK [employer] Other Lipid Panel SEE BELOW [employer] Other Lipid Panel 106.4 mg/dL [employer] Other Lipid Panel 62.6 mg/dL [employer] [facility] [employer] Other PROF 14(COMP METB)on 023 Albumin [Mass/Vol] 3.9 g/dL Normal 3.4-5.0 [facility] Comment on above: Performed By: #### C MP, LIPID #### [facility] [address] [place] [address] Dr. Rosalio Burks Albumin/Globulin [Mass ratio] 1.1 {ratio} [facility] Comment on above: Performed By: #### C MP, LIPID #### [facility] [address] [place] [address] Dr. Rosalio Burks ALP [Catalytic activity/Vol] 108 U/L 46-116 U/L [facility] Comment on above: Performed By: #### C MP, LIPID #### [facility] [address] [place] [address] Dr. Rosalio Burks ALT [Catalytic activity/Vol] 15 U/L Critically low 16-63 U/L [facility] Comment on above: Performed By: #### C MP, LIPID #### [facility] [address] [address] [address] Rosalio Burks Anion gap [Moles/Vol] 10.4 mmol/L [facility] Comment on above: Performed By: #### C MP, LIPID #### [facility] [address] [address] [address] Rosalio Burks AST [Catalytic activity/Vol] 15 U/L 15-37 U/L [facility] Comment on above: Performed By: #### C MP, LIPID #### [facility] [address] [address] [address] Rosalio Burks Bilirubin [Mass/Vol] 0.3 mg/dL Normal 0.2-1.0 [facility] Comment on above: Performed By: #### C MP, LIPID #### [facility] [address] [address] [address] Rosalio Burks Calcium [Mass/Vol] 9.0 mg/dL Normal 8.5-10.1 [facility] Comment on above: Performed By: #### C MP, LIPID #### [facility] [address] [address] [address] Rosalio Burks Chloride [Moles/Vol] 104 mmol/L 98-107 mmol/L [facility] Comment on above: Performed By: #### C MP, LIPID #### [facility] [address] [address] [address] Rosalio Burks CO2 [Moles/Vol] 30.7 mmol/L Normal 21.0-32.0 [facility] Comment on above: Performed By: #### C MP, LIPID #### [facility] [address] [address] [address] Rosalio Burks Creatinine [Mass/Vol] 1.09 mg/dL Normal 0.70-1.30 [facility] Comment on above: Performed By: #### C MP, LIPID #### [facility] [address] [address] [address] Rosalio Burks EGFR-AF PUERTO RICAN >60 Normal >=60 [facility] Comment on above: Performed By: #### C MP, LIPID #### [facility] [address] [address] [address] Rosalio Burks EGFR-NON AF PUERTO RICAN >60 Normal >=60 [facility] Comment on above: Performed By: #### C MP, LIPID #### [facility] [address] [address] [address] Rosalio Burks Globulin (S) [Mass/Vol] 3.4 g/dL Normal [facility] Comment on above: Performed By: #### C MP, LIPID #### [facility] [address] [address] [address] Rosalio Burks Glucose [Mass/Vol] 83 mg/dL Normal 74-106 [facility] [facility] Comment on above: Performed By: #### C MP, LIPID #### [facility] [address] [place] [address] Dr. Rosalio Burks Potassium [Moles/Vol] 4.1 mmol/L Normal 3.5-5.1 [facility] Comment on above: Performed By: #### C MP, LIPID #### [facility] [address] [place] [address] Dr. Rosalio Burks Protein [Mass/Vol] 7.3 g/dL Normal 6.4-8.2 [facility] Comment on above: Performed By: #### C MP, LIPID #### [facility] [address] [address] [address] Rosalio Burks Sodium [Moles/Vol] 141 mmol/L Normal 136-145 [facility] Comment on above: Performed By: #### C MP, LIPID #### [facility] [address] [address] [address] Rosalio Burks Urea nitrogen [Mass/Vol] 17.0 mg/dL Normal 7.0-18.0 [facility] Comment on above: Performed By: #### C MP, LIPID #### [facility] [address] [address] [address] Rosalio Burks Urea nitrogen/Creatini ne [Mass ratio] 15.6 mg/mg [facility] Comment on above: Performed By: #### C MP, LIPID #### [facility] [address] [address] [address] Rosalio Burks XR MODIFIED BARIUM SWALLOWon [...] by: MAMIE HOLDER Date: 2021-11-01 09:50 Normal [facility] Ambulatory Clinical Summaryo n 02-10-2021 Ambulatory Clinical Summary {[id number] }CD:[id number] Normal [facility] General Surgery Office/Clini c Noteon 01-11-2021 [...] TAFOYA, LAVON Waters Only if needed [address] [place] [address]- Additional Instructions: Patient Education Exercising [...] - Not Given Postpone due to refusal [facility] Comment on above: Result Comment: Elec tronically Signed By: Tyree HOOVER MD.jonny\Date and Time Signed: 01/11/21 13:54 EDT Patient [...] Yard work, such as: ? 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 ? Raking and bagging leaves. ? Washing [...] 08/25/2011 Document Revised: 07/05/2018 Document Reviewed: 06/13/2018 [employer] Patient Education ? 2019 [employer]. Normal [facility] Ambulatory Clinical Summaryo n 12-30-2020 Ambulatory Clinical Summary {[id number] }CD:[id number] Normal [facility] General Surgery Office/Clini c Noteon 12-30-2020 [...] Postpone due to refusal Normal [facility] Comment on above: Result Comment: Elec tronically Signed By: SNEHA TAFOYA, Tyree Olsen.jonny\Date and Time Signed: 12/30/20 09:58 EDT Ambulatory Clinical Summaryo n 12-15-2020 Ambulatory Clinical Summary {[id number] }CD:[id number] Normal [facility] General Surgery Office/Clini c Noteon 12-15-2020 [...] - Not Given Postpone due to refusal [facility] Comment on above: Result Comment: Elec tronically Signed By: SNEHA TAFOYA, Tyree Buckley\Date and Time Signed: 12/15/20 16:50 EDT Pathology Noteon 12-14-2020 Pathology Note [id number]: 127 [facility] Operative Reporton Operative Report [id number]: 127 [facility] Lab Reportson 12-06-2020 Lab Reports [id number]: 127 [facility] Consent for Procedure/Surger yon 11-29-2020 Consent for Procedure/Surgery [id number]:1 27 [facility] Ambulatory Clinical Summaryo n 11-26-2020 Ambulatory Clinical Summary {[id number] }CD:[id number] [facility] Patient Educationon 11-27-19 21 Patient Education Preventive [...] Yard work, such as: ? 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 ? Raking and bagging leaves. ? Washing [...] 08/25/2011 Document Revised: 07/05/2018 Document Reviewed: 06/13/2018 [employer] Patient Education ? 2019 [employer] Normal [facility] Physician Referralon 021 Physician Referral [id number]: [address] [facility] Vital Signs Date Time Vital Sign Value Performing Clinician Facility 10-06-2024 09:25-0500 Body height 198.12 cm [facility] 10-06-2024 09:25-0500 Body mass index (BMI) [Ratio] 22.8 kg/m2 [facility] 10-06-2024 09:25-0500 Body temperature 97.4 [degF] [facility] 10-06-2024 09:25-0500 Body weight 89.58 kg [facility] 10-06-2024 09:25-0500 Diastolic blood pressure 79 mm[Hg] [facility] 10-06-2024 09:25-0500 Heart rate 94 /min [facility] 10-06-2024 09:25-0500 Respiratory rate 16 /min [facility] 10-06-2024 09:25-0500 SaO2% (BldA) [Mass fraction] 98 % [facility] 10-06-2024 09:25-0500 Systolic blood pressure 111 mm[Hg] [facility] 05-29-2024 13:02-0400 Diastolic blood pressure 85 mm[Hg] Tremayne Areavlotkowski DO Work Phone: [facility] 05-29-2024 13:02-0400 Heart rate 74 /min Tremayne Fontenotki DO Work Phone: [facility] 05-29-2024 13:02-0400 Systolic blood pressure 141 mm[Hg] Tremayne Gostkowski DO Work Phone: [facility] 11-15-2023 10:54-0400 Diastolic blood pressure 75 mm[Hg] Tremayne Mickeytkowski DO Work Phone: [facility] 11-15-2023 10:54-0400 Heart rate 106 /min Tremayne Fontenotki DO Work Phone: [facility] 11-15-2023 10:54-0400 SaO2% (BldA) [Mass fraction] 97 % Tremayne Mickeytkowski DO Work Phone: [facility] 11-15-2023 10:54-0400 Systolic blood pressure 141 mm[Hg] Tremayne Gostkowski DO Work Phone: [facility] 08-16-2023 10:15-0500 Body height 190.5 cm Taras Ball Other [employer] Other 08-16-2023 10:15-0500 Body mass index (BMI) [Ratio] 22.3 kg/m2 Taras Ball Other [employer] Other 08-16-2023 10:15-0500 Body weight 80.92 kg Taras Ball Other [employer] Other 08-16-2023 10:15-0500 Diastolic blood pressure 70 mm[Hg] Taras Ball Other [employer] Other 08-16-2023 10:15-0500 Respiratory rate 12 /min Taras Ball Other [employer] Other 08-16-2023 10:15-0500 Systolic blood pressure 109 mm[Hg] Taras Ball Other [employer] Other 05-10-2023 10:46-0400 Diastolic blood pressure 87 mm[Hg] Tremayne Paige DO Work Phone: [facility] 05-10-2023 10:46-0400 Heart rate 85 /min Tremayne Paige DO Work Phone: [facility] 05-10-2023 10:46-0400 Systolic blood pressure 125 mm[Hg] Tremayne Paige DO Work Phone: [facility] 03-13-2023 13:30-0400 Body height 190.5 cm Taras Ball Other [employer] Other 03-13-2023 13:30-0400 Body mass index (BMI) [Ratio] 24.42 kg/m2 Taras Ball Other [employer] Other 03-13-2023 13:30-0400 Body weight 88.63 kg Taras Ball Other [employer] Other 03-13-2023 13:30-0400 Diastolic blood pressure 78 mm[Hg] Taras Ball Other [employer] Other 03-13-2023 13:30-0400 Respiratory rate 12 /min Taras Ball Other [employer] Other 03-13-2023 13:30-0400 Systolic blood pressure 111 mm[Hg] Taras Ball Other [employer] Other 10-03-2022 14:00-0500 Body height 190.5 cm Taras Ball Other [employer] Other 10-03-2022 14:00-0500 Body mass index (BMI) [Ratio] 25.32 kg/m2 Taras Ball Other [employer] Other 10-03-2022 14:00-0500 Body weight 91.9 kg Taras Ball Other [employer] Other 10-03-2022 14:00-0500 Diastolic blood pressure 82 mm[Hg] Taras Ball Other [employer] Other 10-03-2022 14:00-0500 Respiratory rate 12 /min Taras Ball Other [employer] Other 10-03-2022 14:00-0500 Systolic blood pressure 118 mm[Hg] Taras Ball Other [employer] Other 09-19-2022 12:40-0500 Body height 190.5 cm Tabby Lindo Other [employer] Other 09-19-2022 12:40-0500 Body mass index (BMI) [Ratio] 26.25 kg/m2 Tabby Lindo Other [employer] Other 09-19-2022 12:40-0500 Body temperature 98.2 [degF] Tabby Lindo Other [employer] Other 09-19-2022 12:40-0500 Body weight 95.26 kg Tabby Guicho Other [employer] Other 09-19-2022 12:40-0500 Respiratory rate 18 /min Tabby Guicho Other [employer] Other 09-19-2022 12:40-0500 SaO2% (BldA) [Mass fraction] 96 % Tabby Lindo Other [employer] Other 09-08-2022 07:53-0500 Body height 195.6 cm Tremayne Gibson DO Work Phone: [facility] 09-08-2022 07:53-0500 Body weight 93.58 kg Tremayne Gibson DO Work Phone: [facility] 09-08-2022 07:53-0500 Diastolic blood pressure 93 mm[Hg] Tremayne Gibson DO Work Phone: [facility] 09-08-2022 07:53-0500 Heart rate 82 /min Tremayne Gibson DO Work Phone: [facility] 09-08-2022 07:53-0500 SaO2% (BldA) [Mass fraction] 94 % Tremayne Gibson DO Work Phone: [facility] 09-08-2022 07:53-0500 Systolic blood pressure 146 mm[Hg] Tremayne Gibson DO Work Phone: [facility] 12-29-2021 13:46-0400 Diastolic blood pressure 82 mm[Hg] Tremayne Gibson DO Work Phone: [facility] 12-29-2021 13:46-0400 Heart rate 99 /min Tremayne Gibson DO Work Phone: [facility] 12-29-2021 13:46-0400 Systolic blood pressure 114 mm[Hg] Tremayne Gibson DO Work Phone: [facility] 11-10-2021 08:00-0400 Diastolic blood pressure 89 mm[Hg] Hero Cuellar PT Work Phone: [facility] 11-10-2021 08:00-0400 Heart rate 83 /min Hero Cuellar PT Work Phone: [facility] 11-10-2021 08:00-0400 Systolic blood pressure 134 mm[Hg] Hero Cuellar PT Work Phone: [facility] Encounters Encounter Date Encounter Type Care Provider Facility Start: 10-06-2024 End: 10-06-2024 ambulatory [facility] Work Phone: Start: 10-06-2024 End: 10-06-2024 Encounter for general adult medical examination without abnormal findings [facility] Start: 10-06-2024 End: 10-06-2024 Patient encounter procedure [facility] Work Phone: Start: 09-02-2024 End: 09-03-20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 Start: 08-04-2024 End: 08-04-2024 Refill Tremayne Gibson DO Work Phone: [facility] Comment on above: Refill Request Start: 05-29-2024 End: 05-29-2024 ambulatory TREMAYNE GIBSON Facility:[facility] Start: 05-29-2024 End: 05-29-2024 Office outpatient visit 10 minutes Tremayne Gibson DO Work Phone: Neurology Comment on above: PD (Parkinson's dise ase) ([facility]) (Primary Dx); Sialorrhea; RBD (REM behavioral disorder) Start: 05-03-2024 End: 05-03-2024 Orders Only Mari Narayan DO Work Phone: Neurology Comment on above: PD (Parkinson's dise ase) ([facility]) Start: 04-16-2024 End: 04-16-2024 ambulatory [facility] Start: 02-21-2024 End: 02-21-2024 ambulatory [facility] Start: 01-30-2024 Refill Tremayne florentino DO Work Phone: [facility] Comment on above: Refill Request Start: 11-15-2023 End: 11-15-2023 ambulatory TREMAYNE GIBSON Facility:[facility] Start: 11-15-2023 End: 11-15-2023 Office outpatient visit 15 minutes Tremayne Gibson DO Work Phone: Neurology Comment on above: PD (Parkinson's dise ase) ([facility]) (Primary Dx); Sialorrhea; RBD (REM behavioral disorder) Start: 10-02-2023 End: 10-02-2023 ambulatory [facility] Start: 09-26-2023 End: 09-26-2023 ambulatory [facility] Start: 08-16-2023 End: 08-16-2023 ambulatory Taras Pickett Other [employer] Other Start: 08-16-2023 Office outpatient vi sit 15 minutes Taras Pickett [facility] Start: 08-10-2023 End: 08-10-2023 ambulatory Taras Pickett Other [employer] Other Start: 08-10-2023 Office outpatient vi sit 15 minutes Taras Pickett [facility] Start: 05-10-2023 End: 05-10-2023 Office outpatient visit 15 minutes Tremayne Gibson DO Work Phone: Neurology Comment on above: PD (Parkinson's dise ase) Start: 04-06-2023 Telephone encounter Tremayne fox DO Work Phone: Neurology Comment on above: Forms Start: 03-13-2023 End: 03-13-2023 ambulatory Taras Pickett Other [employer] Other Start: 03-13-2023 Office outpatient vi sit 25 minutes Taras Pickett [facility] Start: 11-22-2022 ambulatory Tremayne florentino DO Work Phone: Neurology Comment on above: neuropathy analysis Start: 10-09-2022 End: 10-09-2022 ambulatory Taras Pickett Other [employer] Other Start: 10-09-2022 Telephone encounter Taras Pickett [facility] Start: 10-08-2022 Encounter for genera l adult medical examination without abnormal findings DR TARAS PICKETT [facility] Start: 10-03-2022 End: 10-04-[address] TARAS PICKETT Facility:[facility] Start: 10-03-2022 End: 10-04-2022 Encounter for general adult medical examination without abnormal findings DR TARAS PICKETT Facility:[facility] Start: 10-03-2022 Periodic preventive med est patient 40-64yrs Taras Pickett [facility] Start: 09-19-2022 End: 09-19-2022 ambulatory Tabby Lindo Other [employer] Other Start: 09-19-2022 Office outpatient ne w 30 minutes Tabby Lindo [facility] Start: 09-08-2022 End: 09-08-2022 Office outpatient visit 15 minutes Tremayne Gibson DO Work Phone: Neurology Comment on above: PD (Parkinson's dise ase) ([facility]) (Primary Dx); Neuropathy, peripheral, hereditary Start: 12-29-2021 End: 12-29-2021 Patient encounter procedure Tremayne Gibson DO Work Phone: Neurology Comment on above: PD (Parkinson's dise ase) (HCC) (Primary Dx) Start: 12-01-2021 End: 12-01-2021 ambulatory Janice Leon [employer] TR[employer] 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 [facility] Comment on above: Hypokinetic Parkinso nian dysphonia (HCC) (Primary Dx); 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); Pharyngeal dysphagia; PD (Parkinson's disease) (HCC) Start: 11-14-2021 ambulatory Tremayne florentino DO Work Phone: Neurology Comment on above: 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 Start: 11-10-2021 End: 11-10-2021 ambulatory Hero Cuellar PT Work Phone: [facility] Comment on above: Abnormality of gait (Primary Dx); PD (Parkinson's disease) (HCC) Hypokinetic Parkinso nian dysphonia (HCC) (Primary Dx); 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); Pharyngeal dysphagia; PD (Parkinson's disease) (HCC) Start: 11-07-2021 Telephone encounter Tremayne fox DO Work Phone: [facility] Comment on above: Results (MBS) Start: 11-03-2021 End: 11-03-2021 ambulatory Janice Leon [facility] 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 [facility] Comment on above: Hypokinetic Parkinso nian dysphonia (HCC) (Primary Dx); 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 Rosalio Burks Start: 12-26-2021 Adult depression screening assessment Tremayne Gibson DO Work Phone: Depression screening Byron Pickett Other Screening for malign ant neoplasm of prostate Taras Pickett Other Plan of Treatment Date Care Activity Detail Author Start: 2034 RSV Vaccine (1 - 1-d ose 75+ series) RSV Vaccine (1 - 1-dose 75+ series) [facility] Start: 10-03-2027 PROSTATE CANCER SCREENING DISCUSSION PROSTATE CANCER SCREENING DISCUSSION [facility] Start: 10-03-2027 Prostate specific antigen measurement Prostate Cancer Screening Discussion [facility] Start: 01-20-2027 Screening for malign ant neoplasm of colon [facility] Start: 01-13-2026 PROSTATE CANCER SCREENING DISCUSSION PROSTATE CANCER SCREENING DISCUSSION [facility] Start: 01-08-2025 End: 01-08-2025 Patient encounter procedure 01/08/2025 3:30 PM EDT Office Visit Neurology [address] [place] [address] Tremayne Gibson DO [address] [place] [address] PD FOLLOW UP Neurology Comment on above: PD FOLLOW UP Start: 08-06-2024 Advance Directive Discussion Advance Directive Discussion [facility] Start: 05-29-2024 End: 05-29-2024 Patient encounter procedure 05/29/2024 1:00 PM EDT Office Visit Neurology [address] [place] [address] Tremayne Gibson DO [address] [place] [address] Return in about 6 months (around 05/16/2024). Neurology Comment on above: Return in about 6 mo nths (around 05/16/2024). Start: 2024 Advance Directive Discussion Advance Directive Discussion [facility] Start: 2024 Pneumococcal Vaccine : 65+ (1 of 1 - PCV) Pneumococcal Vaccine: 65+ (1 of 1 - PCV) [facility] Start: 04-06-2024 Covid-19 Vaccine ( season) Covid-19 Vaccine ( season) [facility] Start: 04-06-2024 Influenza vaccination [facility] Start: 03-24-2024 Screening for malign ant neoplasm of colon [facility] Start: 04-06-2023 Covid-19 Vaccine ( season) Covid-19 Vaccine ( season) [facility] Start: 04-06-2023 Influenza vaccination [facility] Start: 12-26-2022 Adult depression screening assessment DEPRESSION SCREENING [facility] Start: 08-06-2022 DEPRESSION ASSESSMENT DEPRESSION ASS ESSMENT [facility] Start: 04-06-2022 Influenza vaccination [facility] Start: 08-06-2021 DEPRESSION ASSESSMENT DEPRESSION ASS ESSMENT [facility] Start: 04-06-2021 Influenza vaccination INFLUENZA (#1) [facility] Start: 2019 RSV Vaccine (1 - 1-d ose 60+ series) RSV Vaccine (1 - 1-dose 60+ series) [facility] Start: 2014 PROSTATE CANCER SCREENING DISCUSSION PROSTATE CANCER SCREENING DISCUSSION [facility] Start: 2009 Pneumococcal Vaccine : 50+ (1 of 1 - PCV) Pneumococcal Vaccine: 50+ (1 of 1 - PCV) [facility] Start: 2009 SHINGRIX VACCINE (1 of 2) SHINGRIX VACCINE (1 of 2) [facility] Start: 2004 COLOGUARD (FIT-DNA) COLOGUARD (FIT-D NA) [facility] Start: 2004 Colonoscopy COLONOSCOPY [facility] Start: 2004 COLORECTAL CANCER SCREENING COLORECTAL CANCER SCREENING [facility] Start: [address] COLONOGRAPHY [facility] Start: 2004 DIABETES SCREEN DIABETES SCREEN [facility] Start: 2004 Diabetes Screening Diabetes Screenin g [facility] Start: 2004 FECAL OCCULT BLOOD FECAL OCCULT BLOO D [facility] Start: 2004 Screening for malign ant neoplasm of colon [facility] Start: 2004 SIGMOIDOSCOPY SIGMOIDOSCOPY [facility] Start: 1994 Lipid 1996 panel - S andriy or Plasma Lipid Screening [facility] Start: 1994 Lipid panel Lipid Screening [facility] Start: 1994 LIPID SCREEN LIPID SCREEN [facility] Start: 1978 Urine microalbumin profile [facility] Start: 1977 Anxiety Screening Anxiety Screening [facility] Start: 1977 Depression Screening Depression Scre ening [facility] Start: 1977 HEPATITIS C SCREENING HEPATITIS C [facility] Start: 1977 Hepatitis C screening Hepatitis C [facility] Start: 1977 HIV SCREENING HIV SCREENING [facility] Start: 1977 HIV screening HIV Screening [facility] Start: 1971 Adult depression screening assessment DEPRESSION SCREENING [facility] Start: 1964 COVID-19 VACCINE (#1) COVID-19 VACCI NE (#1) [facility] Start: 1964 COVID-19 VACCINE (1) COVID-19 VACCIN E (1) [facility] Start: 1959 COVID-19 VACCINE (#1) COVID-19 VACCI NE (#1) [facility] Comprehensive metabo lic 2000 panel - Serum or Plasma [facility] Payers Date Payer Category Payer Unknown [id number] 2018 Unknown [employer]LAINA JETT PPO [id number] 2018-Present [phone] [facility] [id number] [place] [address] PPO [id number] 2018 Unknown [id number] 1959 Unknown [id number] 1959 Unknown [id number] 1959 Unknown [id number] 1959 Unknown [id number] Social History Date Type Detail Facility Tobacco smoking stat us PAIS Tobacco smoking consumption unknown [facility] Start: 1960 Sex Assigned At Not on file [facility] Start: 09-06-2021 End: 04-04-2022 Exposure to SARS-CoV-2 (event) Not sure [facility] Start: 09-08-2022 End: 09-28-2023 Tobacco smoking status PAIS Never smoked tobacco [facility] Start: 09-08-2022 Tobacco use and exposure Smoke less tobacco non-user [facility] Start: 09-08-2022 End: 01-15-2023 Sex Assigned At [facility] Start: 09-08-2022 End: 01-15-2023 History of Social function [facility] Adult Depression Screening Assessment 0 [facility] Start: 10-01-2021 Sexual orientation Choose not to dis close [facility] Start: 10-06-2024 Sex Male (finding) [facility] Start: 1960 Sex Assigned At Male F [facility] Clinical Notes 08-06-2008 to 09-02-2024 Telephone Encounter - Darlene Cortes - 09/02/2024 11:03 AM ESTTelephone Encounter - Darlene Cortes - 09/02/2024 11:03 AM ESTRomain Dee Dee Pavon - 08/15/2024 1:36 PM EST Note Date & Type Note Facility 09-02-2024 Telephone encounter Note Pt requesting refill as follows: Last FUV May 2024 with [facility] Requested Prescriptions Pending Prescriptions Disp Refills carbidopa-levodopa (SINEMET) 25-100 mg per tablet 120 tablet 11 Sig: Take 1 tablet by mouth four times daily. Upon approval, script will be sent electronically to the patient's pharmacy. Darlene Frias, Log Snaker III [facility] 09-02-2024 Miscellaneous Notes Pt requesting refill as follows: Last FUV May 2024 with [facility] Requested Prescriptions Pending Prescriptions Disp Refills carbidopa-levodopa (SINEMET) 25-100 mg per tablet 120 tablet 11 Sig: Take 1 tablet by mouth four times daily. Upon approval, script will be sent electronically to the patient's pharmacy. Darlene Frias, Log Snaker III documented in this encounter [facility] 09-02-2024 Note [facility] Consult Note Reason for visit: 6 month follow up, PPM, aortic dilatation, PAF 09/02/24 Patient here for 4 mo follow up PAF, aortic dilatation, and statin initiation last month. So far he is tolerating the addition of atorvastatin (80mg) just fine. Denies new myalgias. Denies chest pain, palpitations, and lightheadedness. PATIÑO remains stable and unchanged. Device check 09/02/24 sees no Afib as was in 02/21/24 Will reduce Cardizem to low BP 09/26/23: he is here for 6 month [...] He recently went [facility]. He is handling his meds well. Device check 04/03/23 SR with normal parameters. 42% RA pacing and 23% RV pacing. Review of Systems Musculoskeletal: Positive for arthritis, back pain and myalgias. All other systems reviewed and are negative. [facility] neurology recently made a formal diagnosis of Parkinson's and he has been started on carbidopa. He is told that there has been a change in tremors. He is also on Cardizem. Device check performed on 09/20/2022 shows no evidence of atrial fibrillation and lead thresholds has been stable. Prior HPI: Cole Ramos is a 64 y.o. year old with past medical history [...] Past Medical History: Diagnosis Date Abnormal ECG Arrhythmia Atrial fibrillation (CMS/HCC) Hyperlipidemia PSH: No past surgical history on file. SH: Social Determinants of Health Tobacco Use: Low Risk (05/29/2024) Received from [facility] Patient History Smoking Tobacco Use: Never Smokeless Tobacco Use: Never Passive Exposure: Not on file Alcohol Use: Not on file Financial Resource Strain: Not on file Food Insecurity: Not on file Transportation Needs: Not on file Physical Activity: Not on file Stress: Not on file Social Connections: Not on file Intimate Partner Violence: Unknown (09/27/2023) [place] Safety & Environment Fear of Current or Ex-Partner: Not on file Emotionally Abused: Not on file Physically Abused: Not on file Sexually Abused: Not on file Physically or Sexually Abused: Not on file Depression: Not at risk (05/23/2024) Received from [facility] PHQ-2 PHQ-2 score: 0 Housing Stability: Not on file Utilities: Not on file Health Literacy: Not on file Allergies: No Known Allergies Weight: 86.2kg Visit Vitals BP 98/70 (BP Location: Right arm, Patient Position: Sitting) Pulse 81 Ht 1.956 m (6' 5 ) Wt 86.2 kg (190 lb) SpO2 97% BMI 22.53 kg/m??? Smoking Status Never BSA 2.16 m??? Meds: Current Outpatient Medications on File Prior to Visit Medication Sig Dispense Refill aspirin 325 mg tablet in the morning. atorvastatin (Lipitor) 80 mg tablet Take 1 tablet (80 mg) by mouth in the morning. 90 tablet 3 carbidopa-levodopa (Sinemet) 25-100 mg tablet Take 1 tablet by mouth in t (more content not included)... [facility] 08-15-2024 Note HNO ID: [id number] Author: ?, ?, ? Service: ? Author Type: ? Type: Progress Notes Filed: 08/15/2024 13:45 Note Text: POPULATION HEALTH NAVIGATION OUTREACH Action/FYI RP Patient Outreach - Left message with spouse for patient to call back to schedule Provider ordered Follow up in Neurology. (Please see Epic order dated for (05/29/2024). Any agent can assist with scheduling. Reason for Outreach Care Gap/HCC or Scheduling Wellness Visits Care Gaps due: Follow-up Appointment Patient Contacted: Spoke to patient/parent/or legal guardian Patient identified by name and : Yes Care Gap/HCC/Scheduling Wellness actions taken: Patient declined: Patient will contact office directly to schedule Navigation Signature: Dee Dee Machado Pss August 15, 2024 1:[address] [facility] 08-15-2024 History of Present illness Narrative POPULATION HEALTH NAVIGATION OUTREACH Action/FYI RP Patient Outreach - Left message with spouse for patient to call back to schedule Provider ordered Follow up in Neurology. (Please see [employer] order dated for (05/29/2024). Any agent can assist with scheduling. Reason for Outreach Care Gap/HCC or Scheduling Wellness Visits Care Gaps due: Follow-up Appointment Patient Contacted: Spoke to patient/parent/or legal guardian Patient identified by name and : Yes Care Gap/HCC/Scheduling Wellness actions taken: Patient declined: Patient will contact office directly to schedule Navigation Signature: Dee Dee Sophiadandre Pavon August 15, 2024 1:43 PM documented in this encounter [facility] 08-15-2024 Note Patient Outreach (AC CC) COLE RAMOS ([id number]) 1960 M Date Time Provider Department 08/15/24 NO PCP [facility] During your visit today, we recorded the following information about you: Carterbarrie PavonDee Dee Sophia 08/15/2024 1:45 PM Signed POPULATION HEALTH NAVIGATION OUTREACH Action/FYI RP Patient Outreach - Left message with spouse for patient to call back to schedule Provider ordered Follow up in Neurology. (Please see [employer] order dated for (05/29/2024). Any agent can assist with scheduling. Reason for Outreach Care Gap/HCC or Scheduling Wellness Visits Care Gaps due: Follow-up Appointment Patient Contacted: Spoke to patient/parent/or legal guardian Patient identified by name and : Yes Care Gap/HCC/Scheduling Wellness actions taken: Patient declined: Patient will contact office directly to schedule Navigation Signature: Dee Dee Cortes Carter Pavon August 15, 2024 1:43 PM Allergies As of Date: 08/15/2024 (No Known Allergies) Date Reviewed: 05/29/2024 Reviewed by: Mecca Queen LPN - Fully Assessed Prescriptions as of 08/15/2024 - carbidopa-levodopa (SINEMET) 25-100 mg per tablet Take 1 tablet by mouth four times daily. - atorvastatin (LIPITOR) 40 mg tablet Take 40 mg by mouth once daily. - dilTIAZem CR (TIAZAC,TAZTIA XT) 240 mg 24 hr capsule Take 240 mg by mouth once daily. - aspirin 325 mg tablet Take 325 mg by mouth once daily. Problem List As Of Date 08/15/2024 Noted Resolved Familial peripheral neuropathy [G60.9] 10/06/2021 PD (Parkinson's disease) (HCC) [G20.A1] 10/06/2021 Hypokinetic Parkinsonian dysphonia (HCC) [G20.A*10/13/2021 Pharyngeal dysphagia [R13.13] 10/13/2021 Abnormality of gait [R26.9] 10/14/2021 Cognitive deficit due to Parkinson's disease (H*10/18/2021 Encounter Status:Closed by DEE DEE BANDA on 08/15/24 [facility] 08-04-2024 Telephone encounter Note LAST APPT 05/29/24 [facility] Forwarding to covering physician Requested Prescriptions Pending Prescriptions Disp Refills carbidopa-levodopa (SINEMET) 25-100 mg per tablet 120 tablet 0 Sig: Take 1 tablet by mouth four times daily. [facility] 08-04-2024 Miscellaneous Notes LAST APPT 05/29/24 [facility] Forwarding to covering physician Requested Prescriptions Pending Prescriptions Disp Refills carbidopa-levodopa (SINEMET) 25-100 mg per tablet 120 tablet 0 Sig: Take 1 tablet by mouth four times daily. documented in this encounter [facility] 05-29-2024 Note HNO ID: [id number] Author: TREMAYNE GIBSON, DO Service: ? Author Type: Physician Type: Progress Notes Filed: 05/29/2024 13:39 Note Text: [facility] - FOLLOW UP EVALUATION Taras Pickett DO [address] [id number] Dear Taras Pickett DO: I had the [...] normal. Fund of (more content not included)... [facility] 05-29-2024 History of Present illness Narrative [facility] - FOLLOW UP EVALUATION Taras Pickett DO [address] [id number] Dear Taras Pickett DO: I had the [...] Left pathological reflexes: Rashel's absent. Coordination Right: Fwghsg-mu-vzul normal. Rapid alternating movement normal.Left: Stnrbc-jl-mmei normal. Rapid alternating movement normal. Gait Casual [...] 1 1 1 Level of service : 84889 (10-19 min). Time spent 15 min on the day of service, which included preparing to see the patient, bzqd-hs-cnnq patient care, completing clinical documentation, obtaining and/or [...] Tremayne Gibson DO documented in this encounter [facility] 05-03-2024 Note HNO ID: [id number] Author: MARI ROSAS DO Service: ? Author Type: Physician Type: Progress Notes Filed: 05/03/2024 12:43 Note Text: [facility] 05-03-2024 History of Present illness Narrative documented in this encounter [facility] 05-03-2024 Telephone encounter Note Patient called stating he was out of town and needed 10 pills of [facility] to [facility] [place]. Refill ordered [facility] 05-03-2024 Miscellaneous Notes Patient called stating he was out of town and needed 10 pills of [facility] to [facility] [place]. Refill ordered documented in this encounter [facility] 04-16-2024 Note -Patient has no conc erning symptoms. -CNUF2S3-BLGT score: 1 (age). [facility] 04-16-2024 Note Device check on 03/19 -Found to have normal functioning. -Pacemaker life: 3 year 10 month remaining. -Atrial paced 45%, RV paced 15%. [facility] 04-16-2024 Note Ordered Echo (TTE) i n 6 months for re-evaluation of ascending thoracic aneurysm. Continue to monitor for increased dilation. -Last echo in 2019 showed ascending thoracic aorta measuring 4.2. CTA in 2023 showed no increase in size. [facility] 04-16-2024 Note Lipid studies from show elevated LDL at 128.4. -Started Lipitor 40 mg at today's visit for better lipid control. -Will re-draw lipids and CMP in 3 months. [facility] 04-16-2024 Note Pt is here for a six month follow up. Pt denies chest pain, sob, palpatations Review of Systems Neurological: Positive for light-headedness and tremors. All other systems reviewed and are negative. [facility] 04-16-2024 Note [facility] CARDIOLOGY PROGR ESS NOTE [facility] HPI: Cole Ramos is a 64 y.o. male with [...] cm. 6.) No significant valvular abnormalities. Assessment: Cole Ramos is a 64 y.o. male with [...] months for check after statin initiation. Sathish Sandra PA-C [facility] Available 7-5pm via [employer] Chat Pager #: [phone] [facility] 01-30-2024 Telephone encounter Note Last appt 11/15/23 [facility] Patient phones requesting refills as follows: Requested Prescriptions Pending Prescriptions Disp Refills carbidopa-levodopa (SINEMET) 25-100 mg per tablet 360 tablet 1 Sig: Take 1 tablet by mouth four times daily. [facility] 01-30-2024 Miscellaneous Notes Last appt 11/15/23 [facility] Patient phones requesting refills as follows: Requested Prescriptions Pending Prescriptions Disp Refills carbidopa-levodopa (SINEMET) 25-100 mg per tablet 360 tablet 1 Sig: Take 1 tablet by mouth four times daily. documented in this encounter [facility] 11-15-2023 Instructions Tremayne Gibson DO - [...] Compazine or Phenergan. documented in this encounter [facility] 11-15-2023 Note HNO ID: [id number] Author: TREMAYNE GIBSON DO Service: ? Author Type: Physician Type: Progress Notes Filed: 11/15/2023 11:55 Note Text: [facility] - FOLLOW UP EVALUATION Cole Ramos is a 63 year old male [...] Left pathological reflexes: Rashel's absent. Coordination Right: Bxmqrc-bs-ipgv normal. Rapid alternating movement normal.Left: Nkcpub-ch-dhqx normal. Rapid alternating movement normal. Gait Casual [...] by decreased freque (more content not included)... [facility] 11-15-2023 History of Present illness Narrative [facility] - FOLLOW UP EVALUATION Cole Ramos is a 63 year old male [...] Left pathological reflexes: Rashel's absent. Coordination Right: Tkkfli-nf-gglj normal. Rapid alternating movement normal.Left: Kralxi-uv-nxbo normal. Rapid alternating movement normal. Gait Casual [...] this visit: Pd (parkinson's disease) ([facility]) (primary encounter diagnosis) Sialorrhea Rbd (rem behavioral [...] counseling regarding preparing to see the patient, pzic-to-kxzp patient care, completing clinical documentation, obtaining and/or reviewing separately obtained history, performing a medically appropriate examination, counseling and educating the patient/family/caregiver, ordering medications, tests, or procedures, and communicating results to the patient/family/caregiver. I tried to answer all of the patient's questions and concerns during this visit. Tremayne Gibson DO Senior Staff Neurologist - [facility] documented in this encounter [facility] 09-26-2023 Note Patient here for 6 m o follow up PAF, tachycardia, and dilatation of aorta. He is scheduled for routine device interrogation next week. He denies chest pain, SOB, and palpitations. Review of Systems Neurological: Positive for light-headedness and tremors. All other systems reviewed and are negative. [facility] 09-26-2023 Note DC Electrophysiology Consult Note Reason for visit: 6 [...] He recently went to Parkinson symposium [facility]. He is handling his meds well. Device check 04/03/23 SR with normal parameters. 42% RA pacing and 23% RV pacing. Review of Systems Musculoskeletal: Positive for arthritis, back pain and myalgias. All other systems reviewed and are negative. [facility] neurology recently made a formal diagnosis of Parkinson's and he has been started on carbidopa. He is told that there has been a change in tremors. He is also on Cardizem. Device check performed on 09/20/2022 shows no evidence of atrial fibrillation and lead thresholds has been stable. Prior HPI: Cole Ramos is a 63 y.o. year old [...] sleep apnea Mus (more content not included)... [facility] 08-16-2023 Evaluation note Encounter Date Diagnosis Assessment [...] G20) Weakens his ability to clear secretions [employer] Other 01-05-2024 Evaluation note* Encounter Date Diagnosis [...] elevation of HOB. Tessalon Perles since nonproductive [employer] Other 10-05-2023 History of Present illness Narrative* Tremayne Gibson, DO - 05/10/2023 11:20 AM EDT [facility] - FOLLOW UP EVALUATION Tremayne Gibson [address] [facility] [address] Cole Ramos is a 63 year old male [...] Left pathological reflexes: Rashel's absent. Coordination Right: Ryehbh-tu-imcv normal. Rapid alternating movement normal.Left: Htatgq-hl-pnnb normal. Rapid alternating movement normal. Gait Casual [...] counseling regarding preparing to see the patient, aosj-ty-zlzs patient care, completing clinical documentation, obtaining and/or reviewing separately obtained history, performing a medically appropriate examination, counseling and educating the patient/family/caregiver, ordering medications, tests,or procedures, and communicating results to the patient/family/caregiver. I tried to answer all of the patient's questions and concerns during this visit. Tremayne Gibson DO Senior Staff Neurologist - [facility] * Abhishek Cotto LPN - 05/10/2023 10:45 [...] (Sleep study not recommended) [facility] Miscellaneous Notes* Telephone Encounter - Drew Mora RN - 04/06/2023 2:59 PM EDT Form printed and in nursing outbox for MD signature. Drew Mora RN * Telephone Encounter - Flora Quevedo - 04/06/2023 2:05 PM EDT Received form by fax from [facility] in [place]. They are asking if the patient can participate [employer] fitness class. Scanned form to patient's chart for provider signature. [facility] Evaluation note* Encounter Date Diagnosis Assessment [...] calories. Protien supplement recommended. Monitor for now. [employer] Other 03-06-2023 Evaluation note* Encounter Date Diagnosis Assessment Notes Treatment Notes Treatment Clinical Notes Oct, Parkinson's disease (ICD-10 - G20) [employer] Other 02-28-2023 Evaluation note* Encounter Date Diagnosis [...] f/u Neurology, scheduled to be seen at [facility] neuropathy clinic. Fall precautions., inspect feet daily for cuts and calluses. Sep, Paroxysmal atrial fibrillation (ICD-10 - I48.0) CHADS VASC=0 Denies episodes of tachycardia. f/u Cardiology Sep, Cardiac pacemaker (I CD-10 - Z95.0) PM checks q 6mo [employer] Other 02-14-2023 Evaluation note* Encounter Date Diagnosis [...] treatment plan. Patient left in stable condition. [employer] Other 02-03-2023 Instructions* Patient Instructions* Termayne Gibson DO - 09/08/2022 8:40 AM EST Medications 6A 10A 245P Sinemet 25/100 1 1 1 documented [facility] History of Present illness Narrative* Tremayne Gibson DO - 09/08/2022 8:18 AM EST [facility] - FOLLOW UP EVALUATION Tremayne Gibson [address] [facility] [address] Cole Ramos is a 62 year old male [...] holds a paper. No falls are noted. [employer] was bought out and he is working on computer conversion through December 2022 - has to hold off on PT and 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 until then. There is a strong family [...] in Neurology OT/PT/Speech Visit from 10/13/2021 in [facility] T [...] Left pathological reflexes: Rashel's absent. Coordination Right: Vyzlyw-jy-eaib normal. Rapid alternating movement normal.Left: Ikeqmk-wp-gffo normal. Rapid alternating movement normal. Gait Casual [...] the amplitude decrements starting after the 1st faco-ffb-peeng sequence. Arm Movements Right 2-Mild. a) 3 [...] this visit: Pd (parkinson's disease) ([facility]) (primary encounter diagnosis) Neuropathy, peripheral, hereditary Plan: Continue Sinemet Encouraged exercise - ~150 minutes of strenuous exercise weekly is recommended Defer until 12/26; PT at [place] Defer until 12/26; genetic counseling for testing for peripheral neuropathy Return in about 6 months (around 03/08/2023). Medical decision making was high complexity due to patient's, multiple symptoms, advancing disease,newly diagnosed Neurologic disease and counseling about detention implications The total time spent on the patient care was 25 minutes with greater than 50% of the time spent on counseling regarding preparing to see the patient, iklu-hj-spmj patient care, completing clinical documentation, obtaining and/or reviewing separately obtained history, performing a medically appropriate examination, counseling and educating the patient/family/caregiver, ordering medications, tests,or procedures, and communicating results to the patient/family/caregiver. I tried to answer all of the patient's questions and concerns during this visit. Tremayne Gibson DO Senior Staff Neurologist - [facility] documented in this [facility] Instructions* Patient Instructions* Tremayne Gibson DO - 12/29/2021 2:18 PM EDT 1. [facility] Instructions: Oral: 17 g (~1 heaping tablespoon) dissolved in 120 to 240 mL (4 to 8 ounces) of beverage/water, once daily; do not use daily for >1 to 2 weeks continuously 2. Sinemet 25/100 (generally yellow tablet) instructions: 8AM 12PM 4PM 1 week 1/2 0 1/2 1 week 1 /2 /2 Continue 1 08 06 a. Take Sinemet 30 minutes before meals or 60 minutes after meals. Avoid taking this medication with high protein meals. b. If nausea develops, try taking Sinemet with crackers or bread. c. If nausea still persists, please call. Avoid taking anti-nausea medications before speaking withus. Avoid Reglan, Compazine or Phenergan. documented in this encounter[facility] History of Present illness Narrative* Tremayne Gibson DO - 12/29/2021 2:10 PM EDT [facility] - FOLLOW UP EVALUATION Tremayne Gibson [address] [facility] [address] Cole Ramos is a 61 year old male with a history of IPD (idiopathic Parkinson's disease). He is seen with his . Interval History Since Last Visit: The patient has been following through with the 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 exercises on his drive to work. He notes mild depression. He has been using the treadmill. The short-term memory issues are still an issue. He notes continuing cognitive issues. The PT has been helpful - he notes more rpgbw-ow-nvnwqq. No falls arereported. The patient denies any [...] visit: PROMIS-10 OT/PT/Speech Visit from 10/13/2021 in [facility] T [...] Left pathological reflexes: Rashel's absent. Coordination Right: Vvufwo-km-xmkw normal. Rapid alternating movement normal. Left: Gfvkwf-ey-dplp normal. Rapid alternating movement normal. Gait Casual [...] the amplitude decrements starting after the 1st mzms-zqb-hsejw sequence. Arm Movements Right 2-Mild. a) 3 [...] this visit: Pd (parkinson's disease) ([facility]) (primary encounter diagnosis) Plan: 1. Start Sinemet [...] counseling regarding preparing to see the patient, ngpj-lc-dmhw patient care, completing clinical documentation, obtaining and/or reviewing separately obtained history, performing a medically appropriate examination, counseling and educating the patient/family/caregiver, ordering medications, tests,or procedures and communicating results to the patient/family/caregiver. I tried to answer all of the patient's questions and concerns during this visit. Tremayne Gibson DO Senior Staff Neurologist - [facility] documented in this encounterSam[facility]04[facility] History of Present illness Narrative* Janice Leon [facility] [place]-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 - 12/01/2021 8:55 AM EDT Episode Visit Count: 5 Therapist That Will Oversee The Plan Of Care: Janice Leon Start of Care Date: 10/13/21 Onset Date: 10/06/21 Plan of Care Certification Date: 10/13/21 Next Certification Due Date: 12/12/21 Patient Identified by Name and Date of : Yes [facility] SPEECH THERAPY [...] upright 90 degrees for all PO;Small Bite/Sip 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 Recommendations: Outpatient Speech Therapy Results and Recommendations Discussed With: Patient Planned Interventions, Frequency, and Duration: Planned Treatment Interventions: Cognitive-Linguistic Training (97449, 44939, 49423);Dysphagia Reduction Training (28994);Expressive Language Training (40049, 43063);Voice Training (56699) Current Frequency: 1x/week Duration: 4 weeks PLAN [...] reps each Laryngeal elevation/adduction exercises: 10 reps 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 administered DEEP PHARYNGEAL NEUROMUSCULAR STIMULATION to CN [...] 70.2 Sentences: 67.9 TREATMENT: Swallow / Dysphagia (67636): Skilled Intervention: Demonstrated, instructed, modeled and provided educational handout(s) for hyolaryngeal elevation and excursion manuevers and lingual ROM, lingual base ROM, pharyngeal ROM., Provided both written and video instruction for home exercise program to facilitate follow through with proper performance. , Provided neuromuscular reeducation of swallowing reflex via DPNS Speech/Language Therapy (82555): Skilled Intervention: Educated and instructed patient on [...] per 5 word sentences Billing: Speech Treatment (16727) and Dysphagia Treatment (90575) Total time / Length of visit: 60 minutes Janice Leon CCC-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 documented in this encounterSam[facility]04[facility]22 Miscellaneous Notes* Addendum Note - Hero Cuellar, PT - 11/10/2021 9:37 AM EDT Addended by: HERO CUELLAR on: 11/10/2021 09:37 AM Modules accepted: Orders documented in this encounterSam[facility]04-[facility]22 History of Present illness Narrative* Janice Leon, 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 - 11/10/2021 9:04 AM EDT Episode Visit Count: 4 Therapist That Will Oversee The Plan Of Care: Janice Leon Start of Care Date: 10/13/21 Onset Date: 10/06/21 Plan of Care Certification Date: 10/13/21 Next Certification Due Date: 12/12/21 Patient Identified by Name and Date of : Yes [facility] SPEECH THERAPY [...] upright 90 degrees for all PO;Small Bite/Sip 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 Recommendations: Outpatient Speech Therapy Results and Recommendations Discussed With: Patient Planned Interventions, Frequency, and Duration: Planned Treatment Interventions: Cognitive-Linguistic Training (50780, 72050, 19765);Expressive Language Training (38677, 01638);Voice Training (13376);Dysphagia Reduction Training (13483) Current Frequency: 1x/week Duration: 4 weeks PLAN [...] 5 reps Pharyngeal ROM exercises: 10 reps 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 administered DEEP PHARYNGEAL NEUROMUSCULAR STIMULATION to CN V-XII sites with iced lemon glycerine swabs x 18. Patient demonstrated mild-strong gag response x 15, moderate to max lingual curling,moderate to max palatal lift and swallow reflexes of 2-3 seconds. TREATMENT: Swallow / Dysphagia (55495): Skilled Intervention: Demonstrated, instructed, modeled and provided [...] of swallowing reflex via DPNS. Speech/Language Therapy (02612): Skilled Intervention: Educated and instructed patient on compensatory strategies for vocal intensity, working memory, informtion processing Educated and instructed patient on memory recall strategies such as grouping. Provided verbal cues in vocal intensity. Provided and instructed patient per home exercise program. Current Home Program: facial/lingual/lingual base/laryngeal/pharyngeal exercises, working memory per 5 word sentences, memory using grouping, abstract categorical naming Billing: Speech Treatment (65194) and Dysphagia Treatment (21018) Total time / Length of visit: 75 minutes Janice Leon CCC-TANK TRUCK 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 documented [facility] this [facility] History of Present illness Narrative* Hero Cuellar, PT - 11/10/2021 8:02 AM EDT Episode Visit Count: 4 Therapist That Will Oversee The Plan Of Care: Hero Cuellar Start of Care Date: 10/13/21 Onset Date: 10/10/21 REHABILITATION AND SPORTS THERAPY PHYSICAL THERAPY PROGRESS REPORT PLAN OF CARE UPDATE: Assessment: Cole Ramos demonstrates improvements in walking and physical [...] Patient to be seen for Therapeutic exercise (84994);Neuromuscular re-education (62955);Manual therapy (26784);Therapeutic activities (67694);Self-halfway management (69304);Gait Training (52139);Patient/Family/Caregiver Education;Functional training PLAN FOR NEXT VISIT: Return in 6 months to reperform outcome measures SUBJECTIVE: Patient Reason for Visit: Pt had a bout of headache and feeling off balance. Plans to discuss with human resources assistant manager. Pt will be working with Dr. aGlan to determine when to select medication.. Patient [...] Gait belt utilized during session for safety. Self-Alf Management: 1: Reviewed PD aerobic exercise intensity [...] 60 Hero Cuellar PT documented [place] [address]-04-2022 Miscellaneous Notes* Telephone Encounter - Darlene Jettmaster [facility] [place] 11/07/2021 1:09 PM EDT MBS results received via fax and available to view in scanned documents. documented in this encounterSam[facility]03-31-2022 History of Present illness Narrative* Janice Leon, [facility] [place] 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 - 11/03/2021 11:11 AM EDT Episode Visit Count: 3 Therapist That Will Oversee The Plan Of Care: Janice Leon Start of Care Date: 10/13/21 Onset Date: 10/06/21 Plan of Care Certification Date: 10/13/21 Next Certification Due Date: 12/12/21 Patient Identified by Name and Date of : Yes [facility] RE[facility]IL[facility]ATION [facility] SPORTS THERAPY SPEECH THERAPY [...] 69.4 dB SPL TREATMENT: Swallow / Dysphagia (16702): Skilled Intervention: Provided education related to a [...] follow through with proper performance. Speech/Language Therapy (32017): Skilled Intervention: Educated and instructed patient on compensatory strategies for vocal intensity Provided verbal cues in vocal intensity. Provided and instructed patient per home exercise program. Current Home Program: facial/lingual/laryngeal elevation/adduction, lingual base, Billing: Treatment of Swallow Dysfunction (59073) Speech Treatment (84343) Total time / Length of visit: 45 minutes Janice Leon CCC-TANK TRUCK 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 documented in this encounterSamaritan North [facility] Center04-23-2021 NoteChief Complaint Referral per Dr. Pickett for Right Inguinal Hernia. [facility] Staff 60 year old male referred by [...] Given Postpone due to refusal 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) Unspecified persistent mental disorders due to conditions classified elsewhere Pharyngeal dysphagia Dysphagia, pharyngeal phase PD (Parkinson's disease) (HCC) Paralysis agitans [facility] Diagnosis Abnormality of gait- Primary PD (Parkinson's disease) (HCC) Paralysis agitans [facility]* 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) Unspecified persistent mental disorders due to conditions classified elsewhere Pharyngeal dysphagia Dysphagia, pharyngeal phase PD (Parkinson's disease) (HCC) Paralysis agitans documented [facility]* 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) Unspecified persistent mental disorders due to conditions classified elsewhere Pharyngeal dysphagia Dysphagia, pharyngeal phase PD (Parkinson's disease) (HCC) Paralysis agitans documented [facility]* Diagnosis PD (Parkinson's disease) (HCC)- Primary Paralysis agitans documented [facility]* Diagnosis PD (Parkinson's disease) (HCC)- Primary Paralysis agitans Neuropathy, peripheral, hereditary Hereditary peripheral neuropathy documented in this encounter [facility]* Diagnosis PD (Parkinson's disease) (HCC)- Primary Paralysis agitans documented [facility]* Diagnosis PD (Parkinson's disease) Paralysis agitans documented [facility]* Diagnosis PD (Parkinson's disease) (HCC)- Primary Paralysis agitans Sialorrhea Disturbance of salivary secretion 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 [facility] Diagnosis PD (Parkinson's disease) (HCC) Paralysis agitans [facility]* Diagnosis PD (Parkinson's disease) (HCC) Paralysis agitans [facility]* Diagnosis PD (Parkinson's disease) (HCC)- Primary Paralysis agitans Sialorrhea Disturbance of salivary secretion 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 documented [facility] this [facility]* Diagnosis PD (Parkinson's disease) (HCC) Paralysis agitans [facility]* Diagnosis PD (Parkinson's disease) (HCC) Paralysis agitans [facility]* Diagnosis Onset Date Resolution Status Admit Date Ascending aortic aneurysm acute October 06, 2024 9:20am Chronic kidney disease acute [facility] 2024 9:20am Hypercholesterolemia acute Carlos h 2024 9:20am Parkinson's disease acute October 06, 2024 9:20am Paroxysmal atrial fibrillation acute October 06, 2024 9:20am Screening PSA (prostate spec ific antigen) acute October 06, 2024 9:20am Symptomatic bradycardia acute M arch 2024 9:20am Wellness examination noneactive Carlos h 2024 9:20am [facility] Work Phone: Summary Purpose Family History Relationship Condition Age at Onset Recorded Date/T magno father Diabetes mellitus Unknown Heart disease Unknown Advance Directives Advance Directive Response Recorded Date/ Time Advance Directives No August 25, 2023 4:23pm Reason for Referral Specialty Diagnoses / Procedures Referred By Lyubov marks Referred To Contact [facility] Diagnoses Abnormality of gait PD (Parkinson's disease) ([facility]) Procedures PT REHAB FOLLOW UP ORDER THERAPEUTIC EXERCISES RE, EA 15 MIN. 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) Pharyngeal dysphagia PD (Parkinson's disease) (HCC) Procedures SPEECH REHAB FOLLOW UP ORDER TX SPEECH LANG VOICE COMMJ &/AUDITORY PROC IND Tremayne Gibson DO [address] [place] [address] [facility] [place] [address] Referral ID Status Reason Start Date Expiration Date V isits Requested Visits Authorized [id number] Closed PCP Requested Referral Auto-Generated Referral 12/01/2021 03/01/2022 1 1 Specialty Diagnoses / Procedures Referred By Lyubov marks Referred To Contact Diagnoses PD (Parkinson's disease) (HCC) Procedures PROVIDER ORDERED FOLLOW UP OFFICE/OUTPATIENT NEW HIGH MDM 60-74 MINUTES Tremayne Gibson DO [address] [place] [address] Referral ID Status Reason Start Date Expiration Date V isits Requested Visits Authorized [id number] Authorized 07/01/2022 09/29/2022 1 1 Referral ID Status Reason Start Date Expiration Date V isits Requested Visits Authorized [id number] Authorized 03/08/2023 06/06/2023 1 1 Specialty Diagnoses / Procedures Referred By Lyubov marks Referred To Contact [facility] Diagnoses PD (Parkinson's disease) ([facility]) Procedures CONSULT TO PHYSICAL THERAPY PHYSICAL THERAPY EVALUATION HIGH COMPLEX 45 MINS Tremayne Gibson DO [address] [place] [address] [facility] [address] [place] [address] Referral ID Status Reason Start Date Expiration Date Visits Requested Visits Authorized [id number] Pending Review Auto-Generat ed Referral 12/15/2022 11/23/2023 1 1 Specialty Diagnoses / Procedures Referred By Lyubov marks Referred To Contact Diagnoses PD (Parkinson's disease) ([facility]) Sialorrhea RBD (REM behavioral disorder) Procedures PROVIDER ORDERED FOLLOW UP OFFICE/OUTPATIENT NEW HIGH MDM 60 MINUTES Tremayne Gibson DO [address] [employer] [place] [address] Referral ID Status Reason Start Date Expiration Date V isits Requested Visits Authorized [id number] Authorized 05/16/2024 08/14/2024 1 1 Specialty Diagnoses / Procedures Referred By Lyubov marks Referred To Contact Diagnoses PD (Parkinson's disease) (HCC) Procedures PROVIDER ORDERED FOLLOW UP OFFICE/OUTPATIENT [facility] HIGH [facility] 60 MINUTES Tremayne Gibson DO [address] [place] [address] Referral ID Status Reason Start Date Expiration Date V isits Requested Visits Authorized [id number] Authorized 11/27/2024 02/25/2025 1 1 Chief Complaint and Reason for Visit Chief Complaint Admit Date wellness October 06, 2024 9:20 am Reason for Visit Admit Date Ascending aortic aneurysm October 06 9:20am Chronic kidney disease October 06, 2024 9 :20am Hypercholesterolemia October 06, 2024 9:2 0am Parkinson's disease October 06, 2024 9:20 am Paroxysmal atrial fibrillation October 9:20am Screening PSA (prostate specific antigen ) October 06, 2024 9:20am Symptomatic bradycardia October 06, 2024 9:20am Wellness examination October 06, 2024 9:2 0am Additional Source Comments (unrecognized sect ion and content) No Status Records FoundNo Status Records FoundNo Status Records FoundNo Status Records FoundNo Status Records Found INFORMATION SOURCE (unrecogn ized section and content) DATE CREATED AUTHOR 02/11/2021 [facility] DATE CREATED AUTHOR AUTHOR'S ORGANIZ ATION 10/10/2022 [facility] DATE CREATED AUTHOR AUTHOR'S ORGANIZ ATION 05/04/2024 [facility] DATE CREATED AUTHOR AUTHOR'S ORGANIZ ATION 08/20/2024 [facility] DATE CREATED AUTHOR AUTHOR'S ORGANIZ ATION 09/03/2024 [facility] Source Comments (unrecognize d section and content) In the event this informatio n is protected by the Federal Confidentiality of Alcohol and Drug Abuse Patient Records regulations: The Federal rules restrict any use of the information to criminally investigate or prosecute any alcohol or drug abuse patient.[facility] CenterIn the event this information is protected by the Federal Confidentiality of Alcohol and Drug Abuse Patient Records regulations: The Federal rules restrict any use of the information to criminally investigate or prosecute any alcohol or drug abuse patient.[facility] CenterIn the event this information is protected by the Federal Confidentiality of Alcohol and Drug Abuse Patient Records regulations: The Federal rules restrict any use of the information to criminally investigate or prosecute any alcohol or drug abuse patient.[facility] CenterIn the event this information is protected by the Federal Confidentiality of Alcohol and Drug Abuse Patient Records regulations: The Federal rules restrict any use of the information to criminally investigate or prosecute any alcohol or drug abuse patient.[facility] CenterIn the event this information is protected by the Federal Confidentiality of Alcohol and Drug Abuse Patient Records regulations: The Federal rules restrict any use of the information to criminally investigate or prosecute any alcohol or drug abuse patient.[facility] CenterIn the event this information is protected by the Federal Confidentiality of Alcohol and Drug Abuse Patient Records regulations: The Federal rules restrict any use of the information to criminally investigate or prosecute any alcohol or drug abuse patient.[facility] CenterIn the event this information is protected by the Federal Confidentiality of Alcohol and Drug Abuse Patient Records regulations: The Federal rules restrict any use of the information to criminally investigate or prosecute any alcohol or drug abuse patient.[facility] CenterIn the event this information is protected by the Federal Confidentiality of Alcohol and Drug Abuse Patient Records regulations: The Federal rules restrict any use of the information to criminally investigate or prosecute any alcohol or drug abuse patient.[facility] CenterIn the event this information is protected by the Federal Confidentiality of Alcohol and Drug Abuse Patient Records regulations: The Federal rules restrict any use of the information to criminally investigate or prosecute any alcohol or drug abuse patient.[facility] CenterIn the event this information is protected by the Federal Confidentiality of Alcohol and Drug Abuse Patient Records regulations: The Federal rules restrict any use of the information to criminally investigate or prosecute any alcohol or drug abuse patient.[facility] CenterIn the event this information is protected by the Federal Confidentiality of Alcohol and Drug Abuse Patient Records regulations: The Federal rules restrict any use of the information to criminally investigate or prosecute any alcohol or drug abuse patient.[facility] CenterIn the event this information is protected by the Federal Confidentiality of Alcohol and Drug Abuse Patient Records regulations: The Federal rules restrict any use of the information to criminally investigate or prosecute any alcohol or drug abuse patient.[facility] CenterIn the event this information is protected by the Federal Confidentiality of Alcohol and Drug Abuse Patient Records regulations: The Federal rules restrict any use of the information to criminally investigate or prosecute any alcohol or drug abuse patient.[facility] CenterIn the event this information is protected by the Federal Confidentiality of Alcohol and Drug Abuse Patient Records regulations: The Federal rules restrict any use of the information to criminally investigate or prosecute any alcohol or drug abuse patient.[facility] CenterIn the event this information is protected by the Federal Confidentiality of Alcohol and Drug Abuse Patient Records regulations: The Federal rules restrict any use of the information to criminally investigate or prosecute any alcohol or drug abuse patient.[facility] CenterIn the event this information is protected by the Federal Confidentiality of Alcohol and Drug Abuse Patient Records regulations: The Federal rules restrict any use of the information to criminally investigate or prosecute any alcohol or drug abuse patient.[facility] CenterIn the event this information is protected by the Federal Confidentiality of Alcohol and Drug Abuse Patient Records regulations: The Federal rules restrict any use of the information to criminally investigate or prosecute any alcohol or drug abuse patient.[facility] CenterIn the event this information is protected by the Federal Confidentiality of Alcohol and Drug Abuse Patient Records regulations: The Federal rules restrict any use of the information to criminally investigate or prosecute any alcohol or drug abuse patient.[facility] CenterIn the event this information is protected by the Federal Confidentiality of Alcohol and Drug Abuse Patient Records regulations: The Federal rules restrict any use of the information to criminally investigate or prosecute any alcohol or drug abuse patient.[facility] Reason for Visit (unrecogniz ed section and content) Reason Comments Speech Progress Note Specialty Diagnoses / Procedures Referred By Contac t Referred To Contact SPEECH THERAPY Diagnoses PD (Parkinson's disease) (HCC) Procedures CONSULT TO SPEECH THERAPY OFFICE/OUTPATIENT [facility] 60-74 MINUTES EVAL SPEECH SOUND PRODUCT LANGUAGE COMPREHENSION TX SPEECH LANG VOICE COMMJ &/AUDITORY PROC IND Tremayne Gibson, DO [address] [place] [address] [facility] [address] [id number] Referral ID Status Reason Start Date Expiration Date Visits Requested Visits Authorized [id number] Authorized Auto-Generat ed Referral 10/07/2021 08/05/2022 30 30 Reason Comments Speech Therapy Reason Comments Physical Therapy PT Progress Note Specialty Diagnoses / Procedures Referred By Lyubov t Referred To Contact PHYSICAL THERAPY Diagnoses PD (Parkinson's disease) ([facility]) Procedures CONSULT TO PHYSICAL THERAPY PHYSICAL THERAPY EVALUATION HIGH COMPLEX 45 MINS THERAPEUTIC EXERCISES RE, EA 15 MIN. Tremayne Gibson, DO [address] [place] [address] [facility] [address] [address] Referral ID Status Reason Start Date Expiration Date Visits Requested Visits Authorized [id number] Authorized Auto-Generat ed Referral 10/07/2021 08/05/2022 30 30 Reason Comments Speech Progress Note Specialty Diagnoses / Procedures Referred By Lyubov t Referred To Contact SPEECH THERAPY Diagnoses PD (Parkinson's disease) ([facility]) Procedures CONSULT TO SPEECH THERAPY OFFICE/OUTPATIENT [facility] 60-74 MINUTES EVAL SPEECH SOUND PRODUCT LANGUAGE COMPREHENSION TX SPEECH LANG VOICE COMMJ &/AUDITORY PROC IND Tremayne Gibson, DO [address] [place] [address] Speech [facility] [address] [id number] Reason Comments Results MBS Reason Comments Established Patient Tremor Tremors little worse Numbness in both feet mostly left Specialty Diagnoses / Procedures Referred By Lyubov t Referred To Contact Diagnoses PD (Parkinson's disease) ([facility]) Procedures PROVIDER ORDERED FOLLOW UP OFFICE/OUTPATIENT [facility] MDM 60-74 MINUTES Tremayne Gibson, DO [address] [place] [address] Referral ID Status Reason Start Date Expiration Date Visits Re quested Visits Authorized [id number] Closed 07/01/2022 09/29/2022 1 1 Reason Comments Forms Reason Comments Follow Up Specialty Diagnoses / Procedures Referred By Lyubov marks Referred To Contact Diagnoses PD (Parkinson's disease) Procedures PROVIDER ORDERED FOLLOW UP OFFICE/OUTPATIENT [facility] 60-74 MINUTES Tremayne Gibson DO [address] [place] [address] Referral ID Status Reason Start Date Expiration Date Visits Re quested Visits Authorized [id number] Closed 03/08/2023 06/06/2023 1 1 Reason Comments Follow Up Follow up on Vanessa ons Reason Onset Date Comments Refill Request 01/30/2024 Reason Comments Follow Up Parkinson's Disease Per patient statemen t, My human resources assistant manager wants me to start Lipitor and I wanted to check with him prior to starting. Patient conts with P.T. and is going well. Specialty Diagnoses / Procedures Referred By Lyubov marks Referred To Contact Diagnoses PD (Parkinson's disease) (HCC) Sialorrhea RBD (REM behavioral disorder) Procedures PROVIDER ORDERED FOLLOW UP OFFICE/OUTPATIENT [facility] MDM 60 MINUTES Tremayne Gibson, DO [address] [place] [address] Referral ID Status Reason Start Date Expiration Date Visits Re quested Visits Authorized [id number] Closed 05/16/2024 08/14/2024 1 1 Reason Onset Date Comments Refill Request 08/04/2024 Reason Onset Date Comments Refill Request 09/02/2024 Care Teams (unrecognized sec tion and content) Ambulatory Care Coordinator Relationship Specialty Start Date End Date Taras Pickett DO [address] [place] [address] PCP - General Internal Medicine 05/29/24 Ambulatory Care Coordinator Relationship Specialty Start Date End Date Kacy Taras DO Jhonathan [address] [place] [address] PCP - General Internal Medicine 05/29/24 Ambulatory Care Coordinator Relationship Specialty Start Date End Date Kacy Taras Jara [address] [place] [address] PCP - General Internal Medicine 05/29/24 Ambulatory Care Coordinator Relationship Specialty Start Date End Date Kacy Taras Jara DO [address] [place] [address] PCP - General Internal Medicine 05/29/24 Team Status: Active Member Role Status Dates Taras Pickett DO Primary Care Provider Active Team Status: Inactive Member Role Status Dates Taras Pickett DO Primary Care Provide r, Attending Provider Active Start: October 06, 2024 End: October 06, 2024 Goals (unrecognized section and content) Goals may be documented in a n alternate section FOR RECORDS PERTAINING TO PATIENTS WHO ARE [...] BE BASED ON THE PRIMARY CLINICAL RECORDS. [employer] [facility]. provides no warranty or guarantee of the accuracy or completeness of information in this document.
--- OUTSIDE RECORDS SUMMARY | 2024-10-16 10:30 | XMS_ITS | CCD ---
Author Organization [facility] Care Team Providers Care Drapery Rod Assembler Name Role Phone Unavailable Primary Care Provider [...] Range Facility Office Visiton 09-02-2024 Follow-up visit [id number] Jurgen Ramos 1960 Date Provider Department Center 09/02/2024 241EYAL AVILA CARD [facility] No family history on file Level of Service:15172 [place] OFFICE/OUTPATIENT ESTABLISHED LOW MDM 20 MIN Normal [facility] 36on 07-10-2024 36 Regarding labs from 06/24/2024: [...] of things going on for him. Normal [facility] Orders Onlyon 07-02-2024 Orders Only [id number] Jurgen Ramos farideh S 1960 Provider Department Center 07/02/2024 [id number] POE [facility] CARD [facility] No family history on file Normal [facility] CNOVon 05-29-2024 CNOV Office Visit (NRESAV ) -------- COLE RAMOS ([id number]) 1960 M Date Time Provider Department 05/29/24 1:00 PM TREMAYNE GIBSON NRESAV During your visit today, we recorded the following information about you: Pulse Blood pressure 74/minute 141/85 Tremayne Gibson, DO 05/29/2024 1:39 PM Signed [facility] - FOLLOW UP EVALUATION Taras Pickett DO [address] [facility] [id number] Dear Taras Pickett DO: I had the [...] Examination: G (more content not included)... Normal [facility] COLE RAMOS ([id number]) 1960 M Date Time Provider Department 05/03/24 MARI ROSAS FVPRAD During your visit today, we recorded the following information about you: Mari Rosas DO 05/03/2024 12:42 PM Signed Patient called stating he was out of town and needed 10 pills of Sinemet to [facility] in [place]. Refill ordered Allergies As of Date: 05/03/2024 (No Known Allergies) Date Reviewed: 11/15/2023 Reviewed by: Ana Hart LPN - Fully Assessed Visit Diagnosis:PD (Parkinson's disease) ([facility]) [G20.A1] Order(s):carbidopa-levod opa (SINEMET) 25-100 mg per [...] peripheral neuropathy [G60.9] 10/06/2021 PD (Parkinson's disease) ([facility]) [G20.A1] 10/06/2021 Hypokinetic Parkinsonian dysphonia (HCC) [G20.A*10/13/2021 [...] Encounter Status:Closed by MARI ROSAS on 05/03/24 [facility] 37on 04-16-2024 37 Start taking lipitor 40 mg daily in the evening or prior to bed. Call the office if any muscle aches or concerns. Have follow up labs drawn in 2-3 months (June or July). Must be fasting labs. Normal [facility] Office Visiton 04-16-2024 Follow-up visit [id number] Jurgen Ramos Juanita 1960 M Date Provider Department Center 04/16/2024 [id number] SANDRA ADRIANO [facility] No family history on file Level of Service:92273 [place] OFFICE/OUTPATIENT ESTABLISHED MOD MDM 30 MIN [facility] CNOVon 11-15-2023 CNOV Office Visit (NRESAV ) -------- COLE RAMOS ([id number]) 1960 M Date Time Provider Department 11/15/23 [...] Left pathological reflexes: Rashel's absent. Coordination Right: Qibqol-gr-jmdx normal. Rapid alternating movement normal.Left: Ajalci-ig-aoel normal. Rapid alternating movement normal. Gait Casual [...] Left MDS (more content not included)... Normal [facility] 36on 10-05-2023 36 Regarding CTA chest performed on 10/03/2023: BECKY Dietz MA It is stable, 4.2cmx4.2cm, we will ct to monitor Patient informed. Normal [facility] Office Visiton 09-26-2023 Follow-up visit [id number] Jurgen Ramos S 1960 M Date Provider Department Center 09/26/2023 Mark6-MT BAJWA [facility] No family history on file Level of Service:71657 [place] OFFICE/OUTPATIENT ESTABLISHED MOD MDM 30 MIN Normal [facility] CBC AUTO DIFFon 10-03-2022 BASO # 0.0 103/ul Normal 0.0-0.1 [facility] Comment on above: Performed By: #### C BC #### [facility] [address] [place] [address] Dr. Rosalio Burks Basophils/100 WBC (Bld) 0.3 % Normal 0.2-2.0 [facility] Comment on above: Performed By: #### C BC #### [facility] [address] [place] [address] Dr. Rosalio Burks EO # 0.1 103/ul Normal 0.0-0.7 [facility] Comment on above: Performed By: #### C BC #### [facility] [address] [address] [address] Rosalio Burks Eosinophils/100 WBC (Bld) 1.0 % Normal 0.9-7.0 [facility] Comment on above: Performed By: #### C BC #### [facility] [address] [address] [address] Rosalio Burks Erythrocyte distribution width (RBC) [Ratio] 11.7 % Normal 11.0-15.0 [facility] Comment on above: Performed By: #### C BC #### [facility] [address] [place] [address] Dr. Rosalio Burks Hematocrit (Bld) [Volume fraction] 43.2 % Normal 42.0-54.0 [facility] Comment on above: Performed By: #### C BC #### [facility] [address] [place] [address] Dr. Rosalio Burks Hemoglobin (Bld) [Mass/Vol] 15.0 g/dL Normal 14.0-18.0 [facility] Comment on above: Performed By: #### C BC #### [facility] [address] [place] [address] Dr. Rosalio Burks IG # 0.02 10e3/ul Normal 0.00-0.03 [facility] Comment on above: Performed By: #### C BC #### [facility] [address] [place] [address] Dr. Rosalio Burks IG % 0.3 % Normal 0.0-0.5 [facility] Comment on above: Performed By: #### C BC #### [facility] [address] [place] [address] Dr. Rosalio Burks LYMPH # 1.5 103/ul Normal 1.2-3.8 [facility] Comment on above: Performed By: #### C BC #### [facility] [address] [place] [address] Dr. Rosalio Burks Lymphocytes/100 WBC (Bld) 23.3 % Normal 20.5-60.0 [facility] Comment on above: Performed By: #### C BC #### [facility] [address] [place] [address] Dr. Rosalio Burks MANUAL DIFF REQ NO Normal [facility] Comment on above: Performed By: #### C BC #### [facility] [address] [place] [address] Dr. Rosalio Burks MCH (RBC) [Entitic mass] 31.9 pg Normal 25.9-34.0 [facility] Comment on above: Performed By: #### C BC #### [facility] [address] [place] [address] Dr. Rosalio Burks MCHC (RBC) [Mass/Vol] 34.7 g/dL Normal 29.9-35.2 [facility] Comment on above: Performed By: #### C BC #### [facility] [address] [place] [address] Dr. Rosalio Burks MCV (RBC) [Entitic vol] 91.9 fL Normal 80.0-94.0 [facility] Comment on above: Performed By: #### C BC #### [facility] [address] [place] [address] Dr. Rosalio Burks MONO # 0.6 103/ul Normal 0.3-0.8 [facility] Comment on above: Performed By: #### C BC #### [facility] [address] [place] [address] Dr. Rosalio Burks Monocytes/100 WBC (Bld) 10.1 % Normal 1.7-12.0 [facility] Comment on above: Performed By: #### C BC #### [facility] [address] [place] [address] Dr. Rosalio Burks NEUT # 4.0 103/ul Normal 1.4-6.5 [facility] Comment on above: Performed By: #### C BC #### [facility] [address] [place] [address] Dr. Rosalio Burks Neutrophils/100 WBC (Bld) 65.0 % Normal 43.0-75.0 [facility] Comment on above: Performed By: #### C BC #### [facility] [address] [place] [address] Dr. Rosalio Burks Platelet mean volume (Bld) [Entitic vol] 10.3 fL Normal 9.5-13.5 [facility] Comment on above: Performed By: #### C BC #### [facility] [address] [place] [address] Dr. Rosalio Burks PLT 268 103/ul Normal 150-450 [facility] Comment on above: Performed By: #### C BC #### [facility] [address] [place] [address] Dr. Rosalio Burks RBC 4.70 106/ul Normal 4.70-6.10 [facility] Comment on above: Performed By: #### C BC #### [facility] [address] [place] [address] Dr. Rosalio Burks WBC 6.2 103/ul Normal 4.0-11.0 [facility] Comment on above: Performed By: #### C BC #### [facility] [address] [place] [address] Dr. Rosalio Burks Complete Blood Count and Dif gerald 10-03-2022 Anisocytosis Ql (Bld) [employer] Other Basophilic stippling LM Ql (Bld) [employer] Other RBC morphology finding Nom (Bld) [employer] Other Complete Blood Count and Diff [employer] Other Comprehensive Metabolic Pane laura 10-03-2022 Albumin [Mass/Vol] 3.716273 g/dL 3.4-5.0 g/dL [employer] Other Calcium [Mass/Vol] 9.3139262 mg/dL 8.5-10.1 mg/dL [employer] Other CO2 [Moles/Vol] 30.73888958 mmol/L 21.0-3 2.0 mmol/L [employer] Other Creatinine [Mass/Vol] 1.79840101 mg/dL 0.70-1.30 mg/dL [employer] Other Potassium [Moles/Vol] 4.46804358 mmol/L 3.5-5.1 mmol/L [employer] Other Protein [Mass/Vol] 7.931092 g/dL 6.4-8.2 g/dL [employer] Other Urea nitrogen [Mass/Vol] 17.9157170 mg/dL 7.0-18.0 mg/dL [employer] Other Comprehensive Metabolic Panel see note [employer] Other Comprehensive Metabolic Panel 141 mmol/L 136-145 mmol/L [employer] Other Comprehensive Metabolic Panel 83 mg/dL 74-106 mg/dL [employer] Other Comprehensive Metabolic Panel >60 mL/min/1.73m2 >=60 mL/min/1.73m2 [employer] Other Comprehensive Metabolic Panel 0.3 mg/dL 0.2-1.0 mg/dL [employer] [facility] [employer] Other Comprehensive Metabolic Panel 3.4 g/dL [employer] Other LIPID PROFILEon 10-03-2022 CHOL-HDL RATIO NORM SEE BELOW Normal [facility] Comment on above: Result Comment: 3.3 - 4.4 LOW RISK 4.4 - 7.1 AVERAGE RISK 7.1 - 11.0 MODERATE RISK >11.0 HIGH RISK Performed By: #### C MP, LIPID #### [facility] [address] [address] [address] Rosalio Burks Cholesterol [Mass/Vol] 202 mg/dL Critically high <=200 mg/dL [facility] Comment on above: Performed By: #### C MP, LIPID #### [facility] [address] [address] [address] Rosalio Burks Cholesterol in HDL [Mass/Vol] 33 mg/dL Critically low 40-60 mg/dL [facility] Comment on above: Performed By: #### C MP, LIPID #### [facility] [address] [address] [address] Rosalio Burks Cholesterol in LDL [Mass/Vol] 106.4 mg/dL Normal [facility] Comment on above: Performed By: #### C MP, LIPID #### [facility] [address] [address] [address] Rosalio Burks Cholesterol.total /Cholesterol in HDL [Mass ratio] 6.1 {ratio} [facility] Comment on above: Performed By: #### C MP, LIPID #### [facility] [address] [address] [address] Rosalio Burks HDL NORMAL > or = 60 mg/dl - LO W CARDIOVASCULAR RISK <40 mg/dl - HIGH CARDIOVASCULAR RISK Normal [facility] Comment on above: Performed By: #### C MP, LIPID #### [facility] [address] [address] [address] Rosalio Burks LDL CALC NORMAL SEE BELOW Normal The [facility] Comment on above: Result Comment: <100 mg/dl OPTIMAL 100 - 129 mg/dl NEAR OR ABOVE OPTIMAL 130 - 159 mg/dl BORDERLINE HIGH 160 - 189 mg/dl HIGH >190 mg/dl VERY HIGH Performed By: #### C MP, LIPID #### [facility] [address] [place] [address] Dr. Rosalio Burks Triglyceride [Mass/Vol] 313 mg/dL Critically high <=150 mg/dL [facility] Comment on above: Performed By: #### C MP, LIPID #### [facility] [address] [address] [address] Rosalio Burks VLDL CALC 62.6 mg/dL Normal [facility] Comment on above: Performed By: #### C MP, LIPID #### [facility] [address] [address] [address] Rosalio Burks Lipid Panelon 10-03-2022 Lipid Panel > or = 60 mg/dl - LO W CARDIOVASCULAR RISK <40 mg/dl - HIGH CARDIOVASCULAR RISK [employer] Other Lipid Panel SEE BELOW [employer] Other Lipid Panel 106.4 mg/dL [employer] Other Lipid Panel 62.6 mg/dL [employer] [facility] [employer] Other PROF 14(COMP METB)on 023 Albumin [Mass/Vol] 3.9 g/dL Normal 3.4-5.0 [facility] Comment on above: Performed By: #### C MP, LIPID #### [facility] [address] [place] [address] Dr. Rosalio Burks Albumin/Globulin [Mass ratio] 1.1 {ratio} [facility] Comment on above: Performed By: #### C MP, LIPID #### [facility] [address] [place] [address] Dr. Rosalio Burks ALP [Catalytic activity/Vol] 108 U/L 46-116 U/L [facility] Comment on above: Performed By: #### C MP, LIPID #### [facility] [address] [place] [address] Dr. Rosalio Burks ALT [Catalytic activity/Vol] 15 U/L Critically low 16-63 U/L [facility] Comment on above: Performed By: #### C MP, LIPID #### [facility] [address] [address] [address] Rosalio Burks Anion gap [Moles/Vol] 10.4 mmol/L [facility] Comment on above: Performed By: #### C MP, LIPID #### [facility] [address] [address] [address] Rosalio Burks AST [Catalytic activity/Vol] 15 U/L 15-37 U/L [facility] Comment on above: Performed By: #### C MP, LIPID #### [facility] [address] [address] [address] Rosalio Burks Bilirubin [Mass/Vol] 0.3 mg/dL Normal 0.2-1.0 [facility] Comment on above: Performed By: #### C MP, LIPID #### [facility] [address] [address] [address] Rosalio Burks Calcium [Mass/Vol] 9.0 mg/dL Normal 8.5-10.1 [facility] Comment on above: Performed By: #### C MP, LIPID #### [facility] [address] [address] [address] Rosalio Burks Chloride [Moles/Vol] 104 mmol/L 98-107 mmol/L [facility] Comment on above: Performed By: #### C MP, LIPID #### [facility] [address] [address] [address] Rosalio Burks CO2 [Moles/Vol] 30.7 mmol/L Normal 21.0-32.0 [facility] Comment on above: Performed By: #### C MP, LIPID #### [facility] [address] [address] [address] Rosalio Burks Creatinine [Mass/Vol] 1.09 mg/dL Normal 0.70-1.30 [facility] Comment on above: Performed By: #### C MP, LIPID #### [facility] [address] [address] [address] Rosalio Burks EGFR-AF SALVADOREAN >60 Normal >=60 [facility] Comment on above: Performed By: #### C MP, LIPID #### [facility] [address] [address] [address] Rosalio Burks EGFR-NON AF SALVADOREAN >60 Normal >=60 [facility] Comment on above: Performed By: #### C MP, LIPID #### [facility] [address] [address] [address] Rosalio Burks Globulin (S) [Mass/Vol] 3.4 g/dL Normal [facility] Comment on above: Performed By: #### C MP, LIPID #### [facility] [address] [address] [address] Rosalio Burks Glucose [Mass/Vol] 83 mg/dL Normal 74-106 [facility] Comment on above: Performed By: #### C MP, LIPID #### [facility] [address] [place] [address] Dr. Rosalio Burks Potassium [Moles/Vol] 4.1 mmol/L Normal 3.5-5.1 [facility] Comment on above: Performed By: #### C MP, LIPID #### [facility] [address] [place] [address] Dr. Rosalio Burks Protein [Mass/Vol] 7.3 g/dL Normal 6.4-8.2 [facility] Comment on above: Performed By: #### C MP, LIPID #### [facility] [address] [address] [address] Rosalio Burks Sodium [Moles/Vol] 141 mmol/L Normal 136-145 [facility] Comment on above: Performed By: #### C MP, LIPID #### [facility] [address] [address] [address] Rosalio Burks Urea nitrogen [Mass/Vol] 17.0 mg/dL Normal 7.0-18.0 [facility] Comment on above: Performed By: #### C MP, LIPID #### [facility] [address] [address] [address] Rosalio Burks Urea nitrogen/Creatini ne [Mass ratio] 15.6 mg/mg [facility] Comment on above: Performed By: #### C MP, LIPID #### [facility] [address] [address] [address] Rosalio Burks XR MODIFIED BARIUM SWALLOWon [...] by: MAMIE HOLDER Date: 2021-11-01 09:[address] [facility] Ambulatory Clinical Summaryo n 02-10-2021 Ambulatory Clinical Summary {[id number] }CD:[id number] Normal [facility] General Surgery Office/Clini c Noteon 01-11-2021 [...] TAFOYA, LAVON Waters Only if needed [address] [place] [address]- Additional Instructions: Patient Education Exercising [...] - Not Given Postpone due to refusal [facility] Comment on above: Result Comment: Elec [...] Yard work, such as: ? Pushing a supervisor lump room. ? Raking and bagging leaves. ? Washing [...] 08/25/2011 Document Revised: 07/05/2018 Document Reviewed: 06/13/2018 [employer] Patient Education ? 2019 [employer]. Normal [facility] Ambulatory Clinical Summaryo n 12-30-2020 Ambulatory Clinical Summary {[id number] }CD:[id number] Normal [facility] General Surgery Office/Clini c Noteon 12-30-2020 [...] Not Given Postpone due to refusal Normal [facility] Comment on above: Result Comment: Elec tronically Signed By: SNEHA TAFOYA, Tyree Olsen.jonny\Date and Time Signed: 12/30/20 09:58 EDT Ambulatory Clinical Summaryo n 12-15-2020 Ambulatory Clinical Summary {[id number] }CD:[id number] Normal [facility] General Surgery Office/Clini c Noteon 12-15-2020 [...] - Not Given Postpone due to refusal [facility] Comment on above: Result Comment: Elec tronically Signed By: SNEHA TAFOYA, Tyree Buckley\Date and Time Signed: 12/15/20 16:50 EDT Pathology Noteon 12-14-2020 Pathology Note [id number]: 127 [facility] Operative Reporton Operative Report [id number]: 127 [facility] Lab Reportson 12-06-2020 Lab Reports [id number]: 127 [facility] Consent for Procedure/Surger yon 11-29-2020 Consent for Procedure/Surgery [id number]:1 27 [facility] Ambulatory Clinical Summaryo n 11-26-2020 Ambulatory Clinical Summary {[id number] }CD:[id number] [facility] Patient Educationon 11-27-19 21 Patient Education [...] Yard work, such as: ? Pushing a supervisor lump room. ? Raking and bagging leaves. ? Washing [...] 08/25/2011 Document Revised: 07/05/2018 Document Reviewed: 06/13/2018 [employer] Patient Education ? 2019 [employer] Normal [facility] Physician Referralon 021 Physician Referral [id number]: 127 Normal [facility] Vital Signs Date Time Vital Sign Value Performing Clinician Facility 10-06-2024 09:25-0500 Body height 198.12 cm [facility] 10-06-2024 09:25-0500 Body mass index (BMI) [Ratio] 22.8 kg/m2 [facility] 10-06-2024 09:25-0500 Body temperature 97.4 [degF] [facility] 10-06-2024 09:25-0500 Body weight 89.58 kg [facility] 10-06-2024 09:25-0500 Diastolic blood pressure 79 mm[Hg] [facility] 10-06-2024 09:25-0500 Heart rate 94 /min [facility] 10-06-2024 09:25-0500 Respiratory rate 16 /min [facility] 10-06-2024 09:25-0500 SaO2% (BldA) [Mass fraction] 98 % [facility] 10-06-2024 09:25-0500 Systolic blood pressure 111 mm[Hg] [facility] 05-29-2024 13:02-0400 Diastolic blood pressure 85 mm[Hg] Tremayne Arevalotkowski DO Work Phone: [facility] 05-29-2024 13:02-0400 Heart rate 74 /min Tremayne Fontenotki DO Work Phone: [facility] 05-29-2024 13:02-0400 Systolic blood pressure 141 mm[Hg] Tremayne Gostkowski DO Work Phone: [facility] 11-15-2023 10:54-0400 Diastolic blood pressure 75 mm[Hg] Tremayne Mickeytkowski DO Work Phone: [facility] 11-15-2023 10:54-0400 Heart rate 106 /min Tremayne Fontenotki DO Work Phone: [facility] 11-15-2023 10:54-0400 SaO2% (BldA) [Mass fraction] 97 % Tremayne Mickeytkowski DO Work Phone: [facility] 11-15-2023 10:54-0400 Systolic blood pressure 141 mm[Hg] Tremayne Gostkowski DO Work Phone: [facility] 08-16-2023 10:15-0500 Body height 190.5 cm Taras Ball Other [employer] Other 08-16-2023 10:15-0500 Body mass index (BMI) [Ratio] 22.3 kg/m2 Taras Ball Other [employer] Other 08-16-2023 10:15-0500 Body weight 80.92 kg Taras Ball Other [employer] Other 08-16-2023 10:15-0500 Diastolic blood pressure 70 mm[Hg] Taras Ball Other [employer] Other 08-16-2023 10:15-0500 Respiratory rate 12 /min Taras Ball Other [employer] Other 08-16-2023 10:15-0500 Systolic blood pressure 109 mm[Hg] Taras Ball Other [employer] Other 05-10-2023 10:46-0400 Diastolic blood pressure 87 mm[Hg] Tremayne Paige DO Work Phone: [facility] 05-10-2023 10:46-0400 Heart rate 85 /min Tremayne Paige DO Work Phone: [facility] 05-10-2023 10:46-0400 Systolic blood pressure 125 mm[Hg] Tremayne Paige DO Work Phone: [facility] 03-13-2023 13:30-0400 Body height 190.5 cm Taras Ball Other [employer] Other 03-13-2023 13:30-0400 Body mass index (BMI) [Ratio] 24.42 kg/m2 Taras Ball Other [employer] Other 03-13-2023 13:30-0400 Body weight 88.63 kg Taras Ball Other [employer] Other 03-13-2023 13:30-0400 Diastolic blood pressure 78 mm[Hg] Taras Ball Other [employer] Other 03-13-2023 13:30-0400 Respiratory rate 12 /min Taras Ball Other [employer] Other 03-13-2023 13:30-0400 Systolic blood pressure 111 mm[Hg] Taras Ball Other [employer] Other 10-03-2022 14:00-0500 Body height 190.5 cm Taras Ball Other [employer] Other 10-03-2022 14:00-0500 Body mass index (BMI) [Ratio] 25.32 kg/m2 Taras Ball Other [employer] Other 10-03-2022 14:00-0500 Body weight 91.9 kg Taras Ball Other [employer] Other 10-03-2022 14:00-0500 Diastolic blood pressure 82 mm[Hg] Taras Ball Other [employer] Other 10-03-2022 14:00-0500 Respiratory rate 12 /min Taras Ball Other [employer] Other 10-03-2022 14:00-0500 Systolic blood pressure 118 mm[Hg] Taras Ball Other [employer] Other 09-19-2022 12:40-0500 Body height 190.5 cm Tabby Lindo Other [employer] Other 09-19-2022 12:40-0500 Body mass index (BMI) [Ratio] 26.25 kg/m2 Tabby Lindo Other [employer] Other 09-19-2022 12:40-0500 Body temperature 98.2 [degF] Tabby Lindo Other [employer] Other 09-19-2022 12:40-0500 Body weight 95.26 kg Tabby Guicho Other [employer] Other 09-19-2022 12:40-0500 Respiratory rate 18 /min Tabby Guicho Other [employer] Other 09-19-2022 12:40-0500 SaO2% (BldA) [Mass fraction] 96 % Tabby Lindo Other [employer] Other 09-08-2022 07:53-0500 Body height 195.6 cm Tremayne Gibson DO Work Phone: [facility] 09-08-2022 07:53-0500 Body weight 93.58 kg Tremayne Gibson DO Work Phone: [facility] 09-08-2022 07:53-0500 Diastolic blood pressure 93 mm[Hg] Tremayne Gibson DO Work Phone: [facility] 09-08-2022 07:53-0500 Heart rate 82 /min Tremayne Gibson DO Work Phone: [facility] 09-08-2022 07:53-0500 SaO2% (BldA) [Mass fraction] 94 % Tremayne Gibson DO Work Phone: [facility] 09-08-2022 07:53-0500 Systolic blood pressure 146 mm[Hg] Tremayne Gibson DO Work Phone: [facility] 12-29-2021 13:46-0400 Diastolic blood pressure 82 mm[Hg] Tremayne Gibson DO Work Phone: [facility] 12-29-2021 13:46-0400 Heart rate 99 /min Tremayne Gibson DO Work Phone: [facility] 12-29-2021 13:46-0400 Systolic blood pressure 114 mm[Hg] Tremayne Gibson DO Work Phone: [facility] 11-10-2021 08:00-0400 Diastolic blood pressure 89 mm[Hg] Hero Cuellar PT Work Phone: [facility] 11-10-2021 08:00-0400 Heart rate 83 /min Hero Cuellar PT Work Phone: [facility] 11-10-2021 08:00-0400 Systolic blood pressure 134 mm[Hg] Hero Cuellar PT Work Phone: [facility] Encounters Encounter Date Encounter Type Care Provider Facility Start: 10-06-2024 End: 10-06-2024 ambulatory [facility] Work Phone: Start: 10-06-2024 End: 10-06-2024 Encounter for general adult medical examination without abnormal findings [facility] Start: 10-06-2024 End: 10-06-2024 Patient encounter procedure [facility] Work Phone: Start: 09-02-2024 End: 09-03-20[facility]: Refill Request Start: 08-15-2024 End: 08-15-2024 ambulatory No [facility] Start: 08-15-2024 End: 08-15-2024 Patient encounter procedure No P[facility] Start: 08-04-2024 End: 08-04-2024 Refill Tremayne Gibson DO Work Phone: [facility] Comment on above: Refill Request Start: 05-29-2024 End: 05-29-2024 ambulatory TREMAYNE GIBSON Facility:[facility] Start: 05-29-2024 End: 05-29-2024 Office outpatient visit 10 minutes Tremayne Gibson DO Work Phone: Neurology Comment on above: PD (Parkinson's dise ase) ([facility]) (Primary Dx); Sialorrhea; RBD (REM behavioral disorder) Start: 05-03-2024 End: 05-03-2024 Orders Only Mari Narayan DO Work Phone: Neurology Comment on above: PD (Parkinson's dise ase) ([facility]) Start: 04-16-2024 End: 04-16-2024 ambulatory [facility] Start: 02-21-2024 End: 02-21-2024 ambulatory [facility] Start: 01-30-2024 Refill Tremayne florentino DO Work Phone: [facility] Comment on above: Refill Request Start: 11-15-2023 End: 11-15-2023 ambulatory TREMAYNE GIBSON Facility:[facility] Start: 11-15-2023 End: 11-15-2023 Office outpatient visit 15 minutes Tremayne Gibson DO Work Phone: Neurology Comment on above: PD (Parkinson's dise ase) ([facility]) (Primary Dx); Sialorrhea; RBD (REM behavioral disorder) Start: 10-02-2023 End: 10-02-2023 ambulatory [facility] Start: 09-26-2023 End: 09-26-2023 ambulatory [facility] Start: 08-16-2023 End: 08-16-2023 ambulatory Taras Pickett Other [employer] Other Start: 08-16-2023 Office outpatient vi sit 15 minutes Taras Pickett [facility] Start: 08-10-2023 End: 08-10-2023 ambulatory Taras Pickett Other [employer] Other Start: 08-10-2023 Office outpatient vi sit 15 minutes [facility] Start: 05-10-2023 End: 05-10-2023 Office outpatient visit 15 minutes Tremayne Gibson DO Work Phone: Neurology Comment on above: PD (Parkinson's dise ase) Start: 04-06-2023 Telephone encounter Tremayne fox DO Work Phone: Neurology Comment on above: Forms Start: 03-13-2023 End: 03-13-2023 ambulatory Taras Pickett Other [employer] Other Start: 03-13-2023 Office outpatient vi sit 25 minutes [facility] Start: 11-22-2022 ambulatory Tremayne florentino DO Work Phone: Neurology Comment on above: neuropathy analysis Start: 10-09-2022 End: 10-09-2022 ambulatory Taras Pickett Other [employer] Other Start: 10-09-2022 Telephone encounter Taras Pickett [facility] Start: 10-08-2022 Encounter for genera l adult medical examination without abnormal findings DR TARAS PICKETT [facility] Start: 10-03-2022 End: 10-04-[address] TARAS PICKETT Facility:[facility] Start: 10-03-2022 End: 10-04-2022 Encounter for general adult medical examination without abnormal findings DR TARAS PICKETT Facility:[facility] Start: 10-03-2022 Periodic preventive med est patient 40-64yrs Taras Pickett [facility] Start: 09-19-2022 End: 09-19-2022 ambulatory Tabby Lindo Other [employer] Other Start: 09-19-2022 Office outpatient ne w 30 minutes Tabby Lindo [facility] Start: 09-08-2022 End: 09-08-2022 Office outpatient visit 15 minutes Tremayne Gibson DO Work Phone: Neurology Comment on above: PD (Parkinson's dise ase) ([facility]) (Primary Dx); Neuropathy, peripheral, hereditary Start: 12-29-2021 End: 12-29-2021 Patient encounter procedure Tremayne Gisbon DO Work Phone: Neurology Comment on above: PD (Parkinson's dise ase) (HCC) (Primary Dx) Start: 12-01-2021 End: 12-01-2021 ambulatory Janice Leon CCC-SIGNAL OPERATOR TECHNICAL [facility] Comment on above: Hypokinetic Parkinso nian dysphonia (HCC) (Primary Dx); 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 #### [facility] [address] [address] [address] Rosalio Burks Start: 12-26-2021 Adult depression screening assessment Tremayne Gibson DO Work Phone: Depression screening Byron Pickett Other Screening for malign ant neoplasm of prostate Taras Pickett Other Plan of Treatment Date Care Activity Detail Author Start: 2034 RSV Vaccine (1 - 1-d ose 75+ series) RSV Vaccine (1 - 1-dose 75+ series) [facility] Start: 10-03-2027 PROSTATE CANCER SCREENING DISCUSSION PROSTATE CANCER SCREENING DISCUSSION [facility] Start: 10-03-2027 Prostate specific antigen measurement Prostate Cancer Screening Discussion [facility] Start: 01-20-2027 Screening for malign ant neoplasm of colon [facility] Start: 01-13-2026 PROSTATE CANCER SCREENING DISCUSSION PROSTATE CANCER SCREENING DISCUSSION [facility] Start: 01-08-2025 End: 01-08-2025 Patient encounter procedure 01/08/2025 3:30 PM EDT Office Visit Neurology [id number] [place] [address] Tremayne Gibson DO [address] [place] [address] PD FOLLOW UP Neurology Comment on above: PD FOLLOW UP Start: 08-06-2024 Advance Directive Discussion Advance Directive Discussion [facility] Start: 05-29-2024 End: 05-29-2024 Patient encounter procedure 05/29/2024 1:00 PM EDT Office Visit Neurology [address] [place] [address] Tremayne Gibson DO [address] [place] [address] Return in about 6 months (around 05/16/2024). Neurology Comment on above: Return in about 6 mo nths (around 05/16/2024). Start: 2024 Advance Directive Discussion Advance Directive Discussion [facility] Start: 2024 Pneumococcal Vaccine : 65+ (1 of 1 - PCV) Pneumococcal Vaccine: 65+ (1 of 1 - PCV) [facility] Start: 04-06-2024 Covid-19 Vaccine ( season) Covid-19 Vaccine ( season) [facility] Start: 04-06-2024 Influenza vaccination [facility] Start: 03-24-2024 Screening for malign ant neoplasm of colon [facility] Start: 04-06-2023 Covid-19 Vaccine ( season) Covid-19 Vaccine ( season) [facility] Start: 04-06-2023 Influenza vaccination C [facility] Start: 12-26-2022 Adult depression screening assessment DEPRESSION SCREENING [facility] Start: 08-06-2022 DEPRESSION ASSESSMENT DEPRESSION ASS ESSMENT [facility] Start: 04-06-2022 Influenza vaccination C [facility] Start: 08-06-2021 DEPRESSION ASSESSMENT DEPRESSION ASS ESSMENT [facility] Start: 04-06-2021 Influenza vaccination INFLUENZA (#1) [facility] Start: 2019 RSV Vaccine (1 - 1-d ose 60+ series) RSV Vaccine (1 - 1-dose 60+ series) [facility] Start: 2014 PROSTATE CANCER SCREENING DISCUSSION PROSTATE CANCER SCREENING DISCUSSION [facility] Start: 2009 Pneumococcal Vaccine : 50+ (1 of 1 - PCV) Pneumococcal Vaccine: 50+ (1 of 1 - PCV) [facility] Start: 2009 SHINGRIX VACCINE (1 of 2) SHINGRIX VACCINE (1 of 2) [facility] Start: 2004 COLOGUARD (FIT-DNA) COLOGUARD (FIT-D NA) [facility] Start: 2004 Colonoscopy COLONOSCOPY [facility] Start: 2004 COLORECTAL CANCER SCREENING COLORECTAL CANCER SCREENING [facility] Start: [address] COLONOGRAPHY [facility] Start: 2004 DIABETES SCREEN DIABETES SCREEN [facility] Start: 2004 Diabetes Screening Diabetes Screenin g [facility] Start: 2004 FECAL OCCULT BLOOD FECAL OCCULT BLOO D [facility] Start: 2004 Screening for malign ant neoplasm of colon [facility] Start: 2004 SIGMOIDOSCOPY SIGMOIDOSCOPY [facility] Start: 1994 Lipid 1996 panel - S andriy or Plasma Lipid Screening [facility] Start: 1994 Lipid panel Lipid Screening [facility] Start: 1994 LIPID SCREEN LIPID SCREEN [facility] Start: 1978 Urine microalbumin profile [facility] Start: 1977 Anxiety Screening Anxiety Screening [facility] Start: 1977 Depression Screening Depression Scre ening [facility] Start: 1977 HEPATITIS C SCREENING HEPATITIS C [facility] Start: 1977 Hepatitis C screening Hepatitis C Sc [facility] Start: 1977 HIV SCREENING HIV SCREENING [facility] Start: 1977 HIV screening HIV Screening [facility] Start: 1971 Adult depression screening assessment DEPRESSION SCREENING [facility] Start: 1964 COVID-19 VACCINE (#1) COVID-19 VACCI NE (#1) [facility] Start: 1964 COVID-19 VACCINE (1) COVID-19 VACCIN E (1) [facility] Start: 1959 COVID-19 VACCINE (#1) COVID-19 VACCI NE (#1) [facility] Comprehensive metabo lic 2000 panel - Serum or Plasma [facility] Payers Date Payer Category Payer Unknown [id number] 2018 Unknown ALAINA JETT PPO [id number] 2018-Present [phone] [facility] [address] [place] [address] PPO [id number] 2018 Unknown [id number] 1959 Unknown [id number] 1959 Unknown [id number] 1959 Unknown [id number] 1959 Unknown [id number] Social History Date Type Detail Facility Tobacco smoking stat us ORIS Tobacco smoking consumption unknown [facility] Start: 1960 Sex Assigned At Not on file [facility] Start: 09-06-2021 End: 04-04-2022 Exposure to SARS-CoV-2 (event) Not sure [facility] Start: 09-08-2022 End: 09-28-2023 Tobacco smoking status ORIS Never smoked tobacco [facility] Start: 09-08-2022 Tobacco use and exposure Smoke less tobacco non-user [facility] Start: 09-08-2022 End: 01-15-2023 Sex Assigned At [facility] Start: 09-08-2022 End: 01-15-2023 History of Social function [facility] Adult Depression Screening Assessment 0 [facility] Start: 10-01-2021 Sexual orientation Choose not to dis close [facility] Start: 10-06-2024 Sex Male (finding) [facility] Start: 1960 Sex Assigned At Male F [facility] Clinical Notes 08-06-2008 to 09-02-2024 Telephone Encounter [...] electronically to the patient's pharmacy. Darlene Frias, Nail Maker III [facility] 09-02-2024 Miscellaneous Notes Pt requesting refill as follows: Last FUV May 2024 with [facility] Requested Prescriptions Pending Prescriptions Disp Refills carbidopa-levodopa (SINEMET) 25-100 mg per tablet 120 tablet 11 Sig: Take 1 tablet by mouth four times daily. Upon approval, script will be sent electronically to the patient's pharmacy. Darlene Frias, Nail Maker III documented in this encounter [facility] 09-02-2024 Note [facility] Consult Note Reason [...] He recently went to Parkinson symposium at [facility]. He is handling his meds well. Device check 04/03/23 SR with normal parameters. 42% RA pacing and 23% RV pacing. Review of Systems Musculoskeletal: Positive for arthritis, back pain and myalgias. All other systems reviewed and are negative. [facility] neurology recently made a formal diagnosis of [...] Tobacco Use: Low Risk (05/29/2024) Received from [facility] Patient History Smoking Tobacco Use: Never Smokeless Tobacco Use: Never Passive Exposure: Not on file Alcohol Use: Not on file Financial Resource Strain: Not on file Food Insecurity: Not on file Transportation Needs: Not on file Physical Activity: Not on file Stress: Not on file Social Connections: Not on file Intimate Partner Violence: Unknown (09/27/2023) [place] [facility] [employer] [place] Fear of Current or Ex-Partner: Not on file Emotionally Abused: Not on file Physically Abused: Not on file Sexually Abused: Not on file Physically or Sexually Abused: Not on file Depression: Not at risk (05/23/2024) Received from [facility] PHQ-2 PHQ-2 score: 0 Housing Stability: Not [...] mouth in t (more content not included)... [facility] 08-15-2024 Note HNO ID: [id number] Author: ?, ?, ? Service: ? Author [...] Machado Pss August 15, 2024 1:43 PM [facility] 08-15-2024 History of Present illness Narrative POPULATION HEALTH NAVIGATION OUTREACH Action/FYI RP Patient Outreach - Left message with spouse for patient to call back to schedule Provider ordered Follow up in Neurology. (Please see [employer] order dated for (05/29/2024). Any agent can [...] 2024 1:43 PM documented in this encounter [facility] 08-15-2024 Note Patient Outreach (AC CC) COLE RAMOS ([id number]) 1960 M Date Time Provider Department 08/15/24 NO PCP [facility] During your visit today, we recorded the following information about you: Carterbarrie PavonDee Dee Sophia 08/15/2024 1:45 PM Signed POPULATION HEALTH NAVIGATION OUTREACH Action/FYI RP Patient Outreach - Left message with spouse for patient to call back to schedule Provider ordered Follow up in Neurology. (Please see [employer] order dated for (05/29/2024). Any agent can [...] Status:Closed by DEE DEE BANDA on 08/15/24 [facility] 08-04-2024 Telephone encounter Note LAST APPT 05/29/24 [facility] Forwarding to covering physician Requested Prescriptions Pending Prescriptions Disp Refills carbidopa-levodopa (SINEMET) 25-100 mg per tablet 120 tablet 0 Sig: Take 1 tablet by mouth four times daily. [facility] 08-04-2024 Miscellaneous Notes LAST APPT 05/29/24 [facility] Forwarding to covering physician Requested Prescriptions Pending Prescriptions Disp Refills carbidopa-levodopa (SINEMET) 25-100 mg per tablet 120 tablet 0 Sig: Take 1 tablet by mouth four times daily. documented in this encounter [facility] 05-29-2024 Note HNO ID: [id number] Author: TREMAYNE GIBSON, DO Service: ? Author Type: Physician Type: Progress Notes Filed: 05/29/2024 13:39 Note Text: [facility] - FOLLOW UP EVALUATION Taras Pickett DO [address] [facility] [facility] [address] Dear Taras Pickett DO: I had the [...] normal. Fund of (more content not included)... [facility] 05-29-2024 History of Present illness Narrative [facility] - FOLLOW UP EVALUATION Taras Pickett DO [address] [facility] [facility] [facility] [address] Dear Taras Pickett DO: I had the [...] Left pathological reflexes: Rashel's absent. Coordination Right: Tzjnoq-nv-iady normal. Rapid alternating movement normal.Left: Sceuto-oo-mgps normal. Rapid alternating movement normal. Gait Casual [...] 1 1 1 Level of service : [id number] (10-19 min). Time spent 15 min on the day of service, which included preparing to see the patient, pqzo-jg-ieoo patient care, completing clinical documentation, obtaining and/or [...] Tremayne Gibson DO documented in this encounter [facility] 05-03-2024 Note HNO ID: [id number] Author: MARI ROSAS DO Service: ? Author Type: Physician Type: Progress Notes Filed: 05/03/2024 12:43 Note Text: [facility] 05-03-2024 History of Present illness Narrative documented in this encounter [facility] 05-03-2024 Telephone encounter Note Patient called stating he was out of town and [facility] [place]. Refill ordered [facility] 05-03-2024 Miscellaneous Notes Patient called stating he was out of town and needed [facility] [place]. Refill ordered documented in this encounter [facility] 04-16-2024 Note -Patient has no conc erning symptoms. -[id number] score: 1 (age). [facility] 04-16-2024 Note Device check on 03/19 -Found to have normal functioning. -Pacemaker life: 3 year 10 month remaining. -Atrial paced 45%, RV paced 15%. [facility] 04-16-2024 Note Ordered Echo (TTE) i n 6 months for re-evaluation of ascending thoracic aneurysm. Continue to monitor for increased dilation. -Last echo in 2019 showed ascending thoracic aorta measuring 4.2. CTA in 2023 showed no increase in size. [facility] 04-16-2024 Note Lipid studies from show elevated LDL at 128.4. -Started Lipitor 40 mg at today's visit for better lipid control. -Will re-draw lipids and CMP in 3 months. [facility] 04-16-2024 Note Pt is here for a six month follow up. Pt denies chest pain, sob, palpatations Review of Systems Neurological: Positive for light-headedness and tremors. All other systems reviewed and are negative. [facility] 04-16-2024 Note [facility] PROGR ESS NOTE [facility] HPI: Cole Ramos is a 64 [...] Sandra PA-C [facility] Available 7-5pm via [employer] Chat Pager #: [phone] [facility] 01-30-2024 Telephone encounter Note [place] 11[place]15/23 [facility] [place] requesting refills as follows: Requested Prescriptions Pending Prescriptions Disp Refills carbidopa-levodopa (SINEMET) 25-100 mg per tablet 360 tablet 1 Sig: Take 1 tablet by mouth four times daily. [facility] 01-30-2024 Miscellaneous Notes Last appt 11/15/23 [facility] Patient phones requesting refills as follows: Requested Prescriptions Pending Prescriptions Disp Refills carbidopa-levodopa (SINEMET) 25-100 mg per tablet 360 tablet 1 Sig: Take 1 tablet by mouth four times daily. documented in this encounter [facility] 11-15-2023 Instructions Tremayne Gibson DO - 11/15/2023 [...] Compazine or Phenergan. documented in this encounter [facility] 11-15-2023 Note HNO ID: [id number] Author: TREMAYNE GIBSON DO Service: ? Author Type: Physician Type: Progress Notes Filed: 11/15/2023 11:55 Note Text: [facility] - FOLLOW UP EVALUATION Cole Ramso is a 63 year old male with [...] Left pathological reflexes: Rashel's absent. Coordination Right: Pjnewx-bf-qmqe normal. Rapid alternating movement normal.Left: Otjmev-hh-ttue normal. Rapid alternating movement normal. Gait Casual [...] by decreased freque (more content not included)... [facility] 11-15-2023 History of Present illness Narrative [...] Left pathological reflexes: Rashel's absent. Coordination Right: Nnblft-ud-guco normal. Rapid alternating movement normal.Left: Pdfaiy-vu-ssfu normal. Rapid alternating movement normal. Gait Casual [...] addressed during this visit: Pd (parkinson's disease) ([facility]) (primary encounter diagnosis) Sialorrhea Rbd (rem behavioral [...] counseling regarding preparing to see the patient, tdus-pz-mghv patient care, completing clinical documentation, obtaining and/or reviewing separately obtained history, performing a medically appropriate examination, counseling and educating the patient/family/caregiver, ordering medications, tests, or procedures, and communicating results to the patient/family/caregiver. I tried to answer all of the patient's questions and concerns during this visit. Tremayne Gibson DO Senior Staff Neurologist - [facility] documented in this encounter [facility] 09-26-2023 Note Patient here for 6 m o follow up PAF, tachycardia, and dilatation of aorta. He is scheduled for routine device interrogation next week. He denies chest pain, SOB, and palpitations. Review of Systems Neurological: Positive for light-headedness and tremors. All other systems reviewed and are negative. [facility] 09-26-2023 Note [place] [facility] Consult Note Reason for visit: 6 [...] He recently went to Parkinson symposium at [facility]. He is handling his meds well. Device check 04/03/23 SR with normal parameters. 42% RA pacing and 23% RV pacing. Review of Systems Musculoskeletal: Positive for arthritis, back pain and myalgias. All other systems reviewed and are negative. [facility] neurology recently made a formal diagnosis of [...] sleep apnea Mus (more content not included)... [facility] 08-16-2023 Evaluation note Encounter Date Diagnosis [...] G20) Weakens his ability to clear secretions [employer] Other 01-05-2024 Evaluation note* Encounter Date Diagnosis [...] elevation of HOB. Tessalon Perles since nonproductive [employer] Other 10-05-2023 History of Present illness Narrative* Tremayne Gibson, DO - 05/10/2023 11:20 AM EDT [facility] - FOLLOW UP EVALUATION Tremayne Gibson [address] [facility] [address] Cole Ramos is a 63 year old [...] Left pathological reflexes: Rashel's absent. Coordination Right: Xtlump-jg-kfco normal. Rapid alternating movement normal.Left: Vsgomp-bw-kxxa normal. Rapid alternating movement normal. Gait Casual [...] counseling regarding preparing to see the patient, plql-ll-ypcb patient care, completing clinical documentation, obtaining and/or reviewing separately obtained history, performing a medically appropriate examination, counseling and educating the patient/family/caregiver, ordering medications, tests,or procedures, and communicating results to the patient/family/caregiver. I tried to answer all of the patient's questions and concerns during this visit. Tremayne Gibson DO Senior Staff Neurologist - [facility] * Abhishek Cotto LPN - 05/10/2023 [...] (Sleep study not recommended) documented in this encounterBrecksville [facility]09-01-2023 Miscellaneous Notes* Telephone Encounter - Drew Mora RN - 04/06/2023 2:59 PM EDT Form printed and in nursing outbox for MD signature. Drew Mora RN * Telephone Encounter - Flora Quevedo - 04/06/2023 2:05 PM EDT Received form by fax from [facility] in [place]. They are asking if the patient can participate [employer] fitness class. Scanned form to patient's chart for provider signature. documented in this encounterBrecksville [facility]08-08-2023 Evaluation note* Encounter Date Diagnosis Assessment [...] calories. Protien supplement recommended. Monitor for now. [employer] Other 03-06-2023 Evaluation note* Encounter Date Diagnosis Assessment Notes Treatment Notes Treatment Clinical Notes Oct, Parkinson's disease (ICD-10 - G20) [employer] Other 02-28-2023 Evaluation note* Encounter Date Diagnosis [...] f/u Neurology, scheduled to be seen at [facility]. Fall precautions., inspect feet daily for cuts and calluses. Sep, Paroxysmal atrial fibrillation (ICD-10 - I48.0) CHADS VASC=0 Denies episodes of tachycardia. f/u Cardiology Sep, Cardiac pacemaker (I CD-10 - Z95.0) PM checks q 6mo [employer] Other 02-14-2023 Evaluation note* Encounter Date Diagnosis [...] treatment plan. Patient left in stable condition. [employer] Other 02-03-2023 Instructions* Patient Instructions* Tremayne Gibson DO - 09/08/2022 8:40 AM EST Medications 6A 10A 245P Sinemet 25/100 1 1 1 documented in this encounterBrecksville Va [facility]02-03-2023 History of Present illness Narrative* Tremayne Gibson DO - 09/08/2022 8:18 AM EST [facility] - FOLLOW UP EVALUATION Tremayne Gibson [address] [facility] [address] Cole Ramos is a 62 year old [...] holds a paper. No falls are noted. [employer] was bought out and he is working on computer conversion through December 2022 - has to hold off on PT and SIGNAL OPERATOR TECHNICAL until then. There is a strong family [...] in Neurology OT/PT/Speech Visit from 10/13/[address] [facility] Physical [facility] T [...] Left pathological reflexes: Rashel's absent. Coordination Right: Fylyxk-ef-zwdq normal. Rapid alternating movement normal.Left: Kirsfn-go-wabr normal. Rapid alternating movement normal. Gait Casual [...] the amplitude decrements starting after the 1st czsg-nho-yufip sequence. Arm Movements Right 2-Mild. a) 3 [...] addressed during this visit: Pd (parkinson's disease) ([facility]) (primary encounter diagnosis) Neuropathy, peripheral, hereditary Plan: Continue Sinemet Encouraged exercise - ~150 minutes of strenuous exercise weekly is recommended Defer until 12/26; PT at [place] Defer until 12/26; genetic counseling for testing for peripheral neuropathy Return in about 6 months (around 03/08/2023). Medical decision making was high complexity due to patient's, multiple symptoms, advancing disease,newly diagnosed Neurologic disease and counseling about long-term implications The total time spent on the patient care was 25 minutes with greater than 50% of the time spent on counseling regarding preparing to see the patient, mrff-st-tcba patient care, completing clinical documentation, obtaining and/or reviewing separately obtained history, performing a medically appropriate examination, counseling and educating the patient/family/caregiver, ordering medications, tests,or procedures, and communicating results to the patient/family/caregiver. I tried to answer all of the patient's questions and concerns during this visit. Tremayne Gibson DO Senior Staff Neurologist - [facility] documented in this encounterBrecksville [facility]05-26-2022 Instructions* Patient Instructions* Tremayne Gibson DO [...] Reglan, Compazine or Phenergan. documented in this encounterBrecksville Va [facility]05-26-2022 History of Present illness Narrative* Tremayne Gibson DO - 12/29/2021 2:10 PM EDT [facility] - FOLLOW UP EVALUATION Tremayne Gibson [address] [facility] [address] Cole Ramos is a 61 year old male with a history of IPD (idiopathic Parkinson's disease). He is seen with his . Interval History Since Last Visit: The patient has been following through with the SIGNAL OPERATOR TECHNICAL exercises on his drive to work. He notes mild depression. He has been using the treadmill. The short-term memory issues are still an issue. He notes continuing cognitive issues. The PT has been helpful - he notes more ieyda-av-ucveby. No falls arereported. The patient denies any [...] visit: PROMIS-10 OT/PT/Speech Visit from 10/13/[address] [facility] Physical Therapy [facility] T [...] Left pathological reflexes: Rashel's absent. Coordination Right: Tnwjqn-we-xjqu normal. Rapid alternating movement normal. Left: Bxmfyu-qq-ssoq normal. Rapid alternating movement normal. Gait Casual [...] the amplitude decrements starting after the 1st qoad-diq-engpl sequence. Arm Movements Right 2-Mild. a) 3 [...] addressed during this visit: Pd (parkinson's disease) ([facility]) (primary encounter diagnosis) Plan: 1. Start Sinemet [...] counseling regarding preparing to see the patient, qhav-yy-xpgi patient care, completing clinical documentation, obtaining and/or reviewing separately obtained history, performing a medically appropriate examination, counseling and educating the patient/family/caregiver, ordering medications, tests,or procedures and communicating results to the patient/family/caregiver. I tried to answer all of the patient's questions and concerns during this visit. Tremayne Gibson DO Senior Staff Neurologist - [facility] documented in this encounterBrecksville Va [facility]04-28-2022 History of Present illness Narrative* Janice Leon [facility]-SIGNAL OPERATOR TECHNICAL - 12/01/2021 8:55 AM EDT Episode Visit Count: 5 Therapist That Will Oversee The Plan Of Care: Janice Leon Start of Care Date: 10/13/21 Onset Date: 10/06/21 Plan of Care Certification Date: 10/13/21 Next Certification Due Date: 12/12/21 Patient Identified by Name and Date of : Yes [facility] SPEECH [...] upright 90 degrees for all PO;Small Bite/Sip SIGNAL OPERATOR TECHNICAL Recommendations: Outpatient Speech Therapy Results and Recommendations Discussed With: Patient Planned Interventions, Frequency, and Duration: Planned Treatment Interventions: Cognitive-Linguistic Training (79019, 87949, 07530);Dysphagia Reduction Training (80261);Expressive Language Training (45451, 86494);Voice Training (57708) Current Frequency: 1x/week Duration: 4 weeks PLAN [...] reps each Laryngeal elevation/adduction exercises: 10 reps SIGNAL OPERATOR TECHNICAL administered DEEP PHARYNGEAL NEUROMUSCULAR STIMULATION to CN [...] 70.2 Sentences: 67.9 TREATMENT: Swallow / Dysphagia (51192): Skilled Intervention: Demonstrated, instructed, modeled and provided educational handout(s) for hyolaryngeal elevation and excursion manuevers and lingual ROM, lingual base ROM, pharyngeal ROM., Provided both written and video instruction for home exercise program to facilitate follow through with proper performance. , Provided neuromuscular reeducation of swallowing reflex via DPNS Speech/Language Therapy (60282): Skilled Intervention: Educated and instructed patient on [...] per 5 word sentences Billing: Speech Treatment (16762) and Dysphagia Treatment (61145) Total time / Length of visit: 60 minutes Janice Leon CCC-SIGNAL OPERATOR TECHNICAL documented in this encounterBrecksville Va [facility]04-07-2022 Miscellaneous Notes* Addendum Note - Hero Cuellar, PT - 11/10/2021 9:37 AM EDT Addended by: HERO CUELLAR on: 11/10/2021 09:37 AM Modules accepted: Orders documented in this encounterBrecksville Va / [facility]04-07-2022 History of Present illness Narrative* Janice Leon, [facility]-SIGNAL OPERATOR TECHNICAL - 11/10/2021 9:04 AM EDT Episode Visit Count: 4 Therapist That Will Oversee The Plan Of Care: Janice Leon Start of Care Date: 10/13/21 Onset Date: 10/06/21 Plan of Care Certification Date: 10/13/21 Next Certification Due Date: 12/12/21 Patient Identified by Name and Date of : Yes [facility] SPEECH [...] upright 90 degrees for all PO;Small Bite/Sip SIGNAL OPERATOR TECHNICAL Recommendations: Outpatient Speech Therapy Results and Recommendations Discussed With: Patient Planned Interventions, Frequency, and Duration: Planned Treatment Interventions: Cognitive-Linguistic Training (78354, 21791, 43636);Expressive Language Training (33468, 15921);Voice Training (51978);Dysphagia Reduction Training (63993) Current Frequency: 1x/week Duration: 4 weeks PLAN [...] 5 reps Pharyngeal ROM exercises: 10 reps SIGNAL OPERATOR TECHNICAL administered DEEP PHARYNGEAL NEUROMUSCULAR STIMULATION to CN V-XII sites with iced lemon glycerine swabs x 18. Patient demonstrated mild-strong gag response x 15, moderate to max lingual curling,moderate to max palatal lift and swallow reflexes of 2-3 seconds. TREATMENT: Swallow / Dysphagia (41711): Skilled Intervention: Demonstrated, instructed, modeled and provided [...] of swallowing reflex via DPNS. Speech/Language Therapy (36172): Skilled Intervention: Educated and instructed patient on compensatory strategies for vocal intensity, working memory, informtion processing Educated and instructed patient on memory recall strategies such as grouping. Provided verbal cues in vocal intensity. Provided and instructed patient per home exercise program. Current Home Program: facial/lingual/lingual base/laryngeal/pharyngeal exercises, working memory per 5 word sentences, memory using grouping, abstract categorical naming Billing: Speech Treatment (93853) and Dysphagia Treatment (85788) Total time / Length of visit: 75 minutes Janice Leon CCC-SIGNAL OPERATOR TECHNICAL documented in this encounterBrecksville Va / [facility]04-07-2022 History of Present illness Narrative* Hero [...] Patient to be seen for Therapeutic exercise (66711);Neuromuscular re-education (40461);Manual therapy (71198);Therapeutic activities (88901);Self-snf management (99887);Gait Training (41243);Patient/Family/Caregiver Education;Functional training PLAN FOR NEXT VISIT: Return in 6 months to reperform outcome measures SUBJECTIVE: Patient Reason for Visit: Pt had a bout of headache and feeling off balance. Plans to discuss with gravity prospecting operator. Pt will be working with Dr. Galan [...] Gait belt utilized during session for safety. Self-Assisted Management: 1: Reviewed PD aerobic exercise intensity [...] 60 Hero Cuellar PT documented in [place] encounterJames [place]ille [address]-04-2022 Miscellaneous Notes* Telephone Encounter - [facility] - 11/07/2021 1:09 PM EDT MBS results received via fax and available to view in scanned documents. documented in this encounterBrecksville Va / [facility]03-31-2022 History of Present illness Narrative* Janice Leon, [facility]-SIGNAL OPERATOR TECHNICAL - 11/03/2021 11:11 AM EDT Episode Visit Count: 3 Therapist That Will Oversee The Plan Of Care: Janice Leon Start of Care Date: 10/13/21 Onset Date: 10/06/21 Plan of Care Certification Date: 10/13/21 Next Certification Due Date: 12/12/21 Patient Identified by Name and Date of : Yes [facility] SPEECH [...] 69.4 dB SPL TREATMENT: Swallow / Dysphagia (82185): Skilled Intervention: Provided education related to a [...] follow through with proper performance. Speech/Language Therapy (17963): Skilled Intervention: Educated and instructed patient on compensatory strategies for vocal intensity Provided verbal cues in vocal intensity. Provided and instructed patient per home exercise program. Current Home Program: facial/lingual/laryngeal elevation/adduction, lingual base, Billing: Treatment of Swallow Dysfunction (14343) Speech Treatment (04690) Total time / Length of visit: 45 minutes Janice Leon CCC-SIGNAL OPERATOR TECHNICAL documented in this encounterBrecksville Va / [facility]04-23-2021 NoteChief Complaint Referral per Dr. Pickett for Right Inguinal Hernia. 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) Unspecified persistent mental disorders due to conditions classified elsewhere Pharyngeal dysphagia Dysphagia, pharyngeal phase PD (Parkinson's disease) (HCC) Paralysis agitans [facility]* Diagnosis Abnormality of gait- Primary PD (Parkinson's disease) (HCC) Paralysis agitans documented in this encounter [facility]* 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) Unspecified persistent mental disorders due to conditions classified elsewhere Pharyngeal dysphagia Dysphagia, pharyngeal phase PD (Parkinson's disease) (HCC) Paralysis agitans documented in this encounter [facility]* 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) Unspecified persistent mental disorders due to conditions classified elsewhere Pharyngeal dysphagia Dysphagia, pharyngeal phase PD (Parkinson's disease) (HCC) Paralysis agitans documented in this encounter [facility]* Diagnosis PD (Parkinson's disease) (HCC)- Primary Paralysis agitans documented in this encounter [facility]* Diagnosis PD (Parkinson's disease) (HCC)- Primary Paralysis agitans Neuropathy, peripheral, hereditary Hereditary peripheral neuropathy documented in this encounter [facility]* Diagnosis PD (Parkinson's disease) (HCC)- Primary Paralysis agitans documented in this encounter [facility]* Diagnosis PD (Parkinson's disease) Paralysis agitans documented in this encounter [facility]* Diagnosis PD (Parkinson's disease) (HCC)- Primary Paralysis agitans Sialorrhea Disturbance of salivary secretion 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 [facility] Diagnosis PD (Parkinson's disease) (HCC) Paralysis agitans documented in this encounter [facility]* Diagnosis PD (Parkinson's disease) (HCC) Paralysis agitans documented in this encounter [facility]* Diagnosis PD (Parkinson's disease) (HCC)- Primary Paralysis agitans Sialorrhea Disturbance of salivary secretion 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 documented in this encounter [facility]* Diagnosis PD (Parkinson's disease) (HCC) Paralysis agitans documented in this encounter [facility]* Diagnosis PD (Parkinson's disease) (HCC) Paralysis agitans documented in this encounter [facility]* Diagnosis Onset Date Resolution Status Admit Date Ascending aortic aneurysm acute October 06, 2024 9:20am Chronic kidney disease acute [facility] 2024 9:20am Hypercholesterolemia acute Carlos h 2024 9:20am Parkinson's disease acute October 06, 2024 9:20am Paroxysmal atrial fibrillation acute October 06, 2024 9:20am Screening PSA (prostate spec ific antigen) acute October 06, 2024 9:20am Symptomatic bradycardia acute M arch 2024 9:20am Wellness examination noneactive Carlos h 2024 9:20am [facility] Work Phone: Summary Purpose Family History Relationship Condition Age at Onset Recorded Date/T magno father Diabetes mellitus Unknown Heart disease Unknown Advance Directives Advance Directive Response Recorded Date/ Time Advance Directives No August 25, 2023 4:23pm Reason for Referral Specialty Diagnoses / Procedures Referred By Lyubov marks Referred To Contact [facility] Diagnoses Abnormality of gait PD (Parkinson's disease) ([facility]) Procedures PT REHAB FOLLOW UP ORDER THERAPEUTIC EXERCISES RE, EA 15 MIN. 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) Pharyngeal dysphagia PD (Parkinson's disease) (HCC) Procedures SPEECH REHAB FOLLOW UP ORDER TX SPEECH LANG VOICE COMMJ &/AUDITORY PROC IND Tremayne Gibson DO [address] [place] [address] [facility] [place] [address] Referral ID Status Reason Start Date Expiration Date V isits Requested Visits Authorized [id number] Closed PCP Requested Referral Auto-Generated Referral 12/01/2021 03/01/2022 1 1 Specialty Diagnoses / Procedures Referred By Lyubov marks Referred To Contact Diagnoses PD (Parkinson's disease) (HCC) Procedures PROVIDER ORDERED FOLLOW UP OFFICE/OUTPATIENT NEW HIGH MDM 60-74 MINUTES Tremayne Gibson DO [address] [place] [address] Referral ID Status Reason Start Date Expiration Date V isits Requested Visits Authorized [id number] Authorized 07/01/2022 09/29/2022 1 1 Referral ID Status Reason Start Date Expiration Date V isits Requested Visits Authorized [id number] Authorized 03/08/2023 06/06/2023 1 1 Specialty Diagnoses / Procedures Referred By Lyubov marks Referred To Contact [facility] Diagnoses PD (Parkinson's disease) ([facility]) Procedures CONSULT TO PHYSICAL THERAPY PHYSICAL THERAPY EVALUATION HIGH COMPLEX 45 MINS Tremayne Gibson DO [address] [place] [address] [facility] [address] [place] [address] Referral ID Status Reason Start Date Expiration Date Visits Requested Visits Authorized [id number] Pending Review Auto-Generat ed Referral 12/15/2022 11/23/2023 1 1 Specialty Diagnoses / Procedures Referred By Lyubov marks Referred To Contact Diagnoses PD (Parkinson's disease) ([facility]) Sialorrhea RBD (REM behavioral disorder) Procedures PROVIDER ORDERED FOLLOW UP OFFICE/OUTPATIENT NEW HIGH MDM 60 MINUTES Tremayne Gibson DO [address] [place] [address] Referral ID Status Reason Start Date Expiration Date V isits Requested Visits Authorized [id number] Authorized 05/16/2024 08/14/2024 1 1 Specialty Diagnoses / Procedures Referred By Lyubov marks Referred To Contact Diagnoses PD (Parkinson's disease) (HCC) Procedures PROVIDER ORDERED FOLLOW UP OFFICE/OUTPATIENT [facility] 60 MINUTES Tremayne Gibson DO [address] [place] [address] Referral ID Status Reason Start Date Expiration Date V isits Requested Visits Authorized [id number] Authorized 11/27/2024 02/25/2025 1 1 Chief Complaint [...] section and content) DATE CREATED AUTHOR 02/11/2021 [facility] DATE CREATED AUTHOR AUTHOR'S ORGANIZ ATION 10/10/2022 [facility] DATE CREATED AUTHOR AUTHOR'S ORGANIZ ATION 05/04/2024 [facility] DATE CREATED AUTHOR AUTHOR'S ORGANIZ ATION 08/20/2024 [facility] DATE CREATED AUTHOR AUTHOR'S ORGANIZ ATION 09/03/2024 [facility] Source Comments (unrecognize d section and content) In the event this informatio n is protected by the Federal Confidentiality of Alcohol and Drug Abuse Patient Records regulations: The Federal rules restrict any use of the information to criminally investigate or prosecute any alcohol or drug abuse patient.[facility] the event this information is protected by the Federal Confidentiality of Alcohol and Drug Abuse Patient Records regulations: The Federal rules restrict any use of the information to criminally investigate or prosecute any alcohol or drug abuse patient.[facility] the event this information is protected by the Federal Confidentiality of Alcohol and Drug Abuse Patient Records regulations: The Federal rules restrict any use of the information to criminally investigate or prosecute any alcohol or drug abuse patient.[facility] the event this information is protected by the Federal Confidentiality of Alcohol and Drug Abuse Patient Records regulations: The Federal rules restrict any use of the information to criminally investigate or prosecute any alcohol or drug abuse patient.[facility] the event this information is protected by the Federal Confidentiality of Alcohol and Drug Abuse Patient Records regulations: The Federal rules restrict any use of the information to criminally investigate or prosecute any alcohol or drug abuse patient.[facility] the event this information is protected by the Federal Confidentiality of Alcohol and Drug Abuse Patient Records regulations: The Federal rules restrict any use of the information to criminally investigate or prosecute any alcohol or drug abuse patient.[facility] Hospital[facility] the event this information is protected by the Federal Confidentiality of Alcohol and Drug Abuse Patient Records regulations: The Federal rules restrict any use of the information to criminally investigate or prosecute any alcohol or drug abuse patient.[facility] Hospital[facility] the event this information is protected by the Federal Confidentiality of Alcohol and Drug Abuse Patient Records regulations: The Federal rules restrict any use of the information to criminally investigate or prosecute any alcohol or drug abuse patient.[facility] Hospital[facility] the event this information is protected by the Federal Confidentiality of Alcohol and Drug Abuse Patient Records regulations: The Federal rules restrict any use of the information to criminally investigate or prosecute any alcohol or drug abuse patient.[facility] the event this information is protected by the Federal Confidentiality of Alcohol and Drug Abuse Patient Records regulations: The Federal rules restrict any use of the information to criminally investigate or prosecute any alcohol or drug abuse patient.[facility] the event this information is protected by the Federal Confidentiality of Alcohol and Drug Abuse Patient Records regulations: The Federal rules restrict any use of the information to criminally investigate or prosecute any alcohol or drug abuse patient.[facility] the event this information is protected by the Federal Confidentiality of Alcohol and Drug Abuse Patient Records regulations: The Federal rules restrict any use of the information to criminally investigate or prosecute any alcohol or drug abuse patient.[facility] the event this information is protected by the Federal Confidentiality of Alcohol and Drug Abuse Patient Records regulations: The Federal rules restrict any use of the information to criminally investigate or prosecute any alcohol or drug abuse patient.[facility] the event this information is protected by the Federal Confidentiality of Alcohol and Drug Abuse Patient Records regulations: The Federal rules restrict any use of the information to criminally investigate or prosecute any alcohol or drug abuse patient.[facility] the event this information is protected by the Federal Confidentiality of Alcohol and Drug Abuse Patient Records regulations: The Federal rules restrict any use of the information to criminally investigate or prosecute any alcohol or drug abuse patient.[facility] the event this information is protected by the Federal Confidentiality of Alcohol and Drug Abuse Patient Records regulations: The Federal rules restrict any use of the information to criminally investigate or prosecute any alcohol or drug abuse patient.[facility] the event this information is protected by the Federal Confidentiality of Alcohol and Drug Abuse Patient Records regulations: The Federal rules restrict any use of the information to criminally investigate or prosecute any alcohol or drug abuse patient.[facility] the event this information is protected by the Federal Confidentiality of Alcohol and Drug Abuse Patient Records regulations: The Federal rules restrict any use of the information to criminally investigate or prosecute any alcohol or drug abuse patient.[facility] the event this information is protected by the Federal Confidentiality of Alcohol and Drug Abuse Patient Records regulations: The Federal rules restrict any use of the information to criminally investigate or prosecute any alcohol or drug abuse patient.[facility] Reason for Visit (unrecogniz ed section and content) Reason Comments Speech Progress Note Specialty Diagnoses / Procedures Referred By Contac t Referred To Contact SPEECH THERAPY Diagnoses PD (Parkinson's disease) (HCC) Procedures CONSULT TO SPEECH THERAPY OFFICE/OUTPATIENT [facility] 60-74 MINUTES EVAL SPEECH SOUND PRODUCT LANGUAGE COMPREHENSION TX SPEECH LANG VOICE COMMJ &/AUDITORY PROC IND Tremayne Gibson, DO [address] [place] [address] Speech Replaced By [facility] [address] [id number] Referral ID Status Reason Start Date Expiration Date Visits Requested Visits Authorized [id number] Authorized Auto-Generat ed Referral 10/07/2021 08/05/2022 30 30 Reason Comments Speech Therapy Reason Comments Physical Therapy PT Progress Note Specialty Diagnoses / Procedures Referred By Lyubov t Referred To Contact PHYSICAL THERAPY Diagnoses PD (Parkinson's disease) ([facility]) Procedures CONSULT TO PHYSICAL THERAPY PHYSICAL THERAPY EVALUATION HIGH COMPLEX 45 MINS THERAPEUTIC EXERCISES RE, EA 15 MIN. Tremayne Gibson, DO [address] [place] [address] [facility] [address] [address] Referral ID Status Reason Start Date Expiration Date Visits Requested Visits Authorized [id number] Authorized Auto-Generat ed Referral 10/07/2021 08/05/2022 30 30 Reason Comments Speech Progress Note Specialty Diagnoses / Procedures Referred By Lyubov t Referred To Contact SPEECH THERAPY Diagnoses PD (Parkinson's disease) ([facility]) Procedures CONSULT TO SPEECH THERAPY OFFICE/OUTPATIENT [facility] 60-74 MINUTES EVAL SPEECH SOUND PRODUCT LANGUAGE COMPREHENSION TX SPEECH LANG VOICE COMMJ &/AUDITORY PROC IND Tremayne Gibson, DO [address] [place] [address] Speech [facility] [address] [id number] Reason Comments Results MBS Reason Comments Established Patient Tremor Tremors little worse Numbness in both feet mostly left Specialty Diagnoses / Procedures Referred By Lyubov t Referred To Contact Diagnoses PD (Parkinson's disease) ([facility]) Procedures PROVIDER ORDERED FOLLOW UP OFFICE/OUTPATIENT [facility] MDM 60-74 MINUTES Tremayne Gibson, DO [address] [place] [address] Referral ID Status Reason Start Date Expiration Date Visits Re quested Visits Authorized [id number] Closed 07/01/2022 09/29/2022 1 1 Reason Comments Forms Reason Comments Follow Up Specialty Diagnoses / Procedures Referred By Lyubov marks Referred To Contact Diagnoses PD (Parkinson's disease) Procedures PROVIDER ORDERED FOLLOW UP OFFICE/OUTPATIENT [facility] 60-74 MINUTES Tremayne Gibson DO [address] [place] [address] Referral ID Status Reason Start Date Expiration Date Visits Re quested Visits Authorized [id number] Closed 03/08/2023 06/06/2023 1 1 Reason Comments Follow Up Follow up on Vanessa ons Reason Onset Date Comments Refill Request 01/30/2024 Reason Comments Follow Up Parkinson's Disease Per patient statemen t, My gravity prospecting operator wants me to start Lipitor and I wanted to check with him prior to starting. Patient conts with P.T. and is going well. Specialty Diagnoses / Procedures Referred By Lyubov marks Referred To Contact Diagnoses PD (Parkinson's disease) (HCC) Sialorrhea RBD (REM behavioral disorder) Procedures PROVIDER ORDERED FOLLOW UP OFFICE/OUTPATIENT [facility] MDM 60 MINUTES Tremayne Gibson, DO [address] [place] [address] Referral ID Status Reason Start Date Expiration Date Visits Re quested Visits Authorized [id number] Closed 05/16/2024 08/14/2024 1 1 Reason Onset Date Comments Refill Request 08/04/2024 Reason Onset Date Comments Refill Request 09/02/2024 Care Teams (unrecognized sec tion and content) Drapery Rod Assembler Relationship Specialty Start Date End Date Taras Pickett DO [address] [place] [address] PCP - General Internal Medicine 05/29/24 Drapery Rod Assembler Relationship Specialty Start Date End Date Kacy Taras DO Jhonathan [address] [place] [address] PCP - General Internal Medicine 05/29/24 Drapery Rod Assembler Relationship Specialty Start Date End Date Kacy Taras Jara [address] [place] [address] PCP - General Internal Medicine 05/29/24 Drapery Rod Assembler Relationship Specialty Start Date End Date Kacy Taras Jara DO [address] [place] [address] PCP - General Internal Medicine 05/29/24 Team [...] BE BASED ON THE PRIMARY CLINICAL RECORDS. [facility]. provides no warranty or guarantee of the accuracy or completeness of information in this document.
[2024-10-16 10:55] LABS: Basophils Percent Auto 0.4 % (0.2-2.0); Eosinophils Percent Auto 0.6 % (0.9-7.0); Hematocrit 45.4 % (42.0-54.0); Hemoglobin 14.9 g/dL (14.0-18.0); Immature Granulocytes Abs Auto 0.02 10^3/uL (0.00-0.03); Immature Granulocytes Pct Auto 0.3 % (0.0-0.5); Lymphocytes Absolute Auto 1.6 10^3/uL (1.2-3.8); Lymphocytes Percent Auto 22.6 % (20.5-60.0); Mean Corpuscular HGB Conc 32.8 g/dL (29.9-35.2); Mean Corpuscular Hemoglobin 31.4 pg (25.9-34.0); Mean Corpuscular Volume 95.6 fL (80.0-94.0); Mean Platelet Volume 10.6 fL (9.5-13.5); Monocytes Absolute Auto 0.6 10^3/uL (0.3-0.8); Monocytes Percent Auto 7.9 % (1.7-12.0); Neutrophils Absolute Auto 4.8 10^3/uL (1.4-6.5); Neutrophils Percent Auto 68.2 % (43.0-75.0); Platelet Count 247 10^3/uL (150-450); Red Blood Count 4.75 10^6/uL (4.70-6.10); Red Cell Distribution Width 11.5 % (11.0-15.0); White Blood Count 7.1 10^3/uL (4.0-11.0)
[2024-10-16 11:32] LABS: Alanine Aminotransferase <6 U/L (16-63); Albumin Globulin Ratio 1.1; Albumin Level 3.9 g/dL (3.4-5.0); Alkaline Phosphatase 112 U/L (46-116); Anion Gap 10.4; Aspartate Amino Transferase 18 U/L (15-37); BUN Creatinine Ratio 18.7; Bilirubin Total 0.7 mg/dL (0.2-1.0); Calcium 9.4 mg/dL (8.5-10.1); Carbon Dioxide 30.9 mmol/L (21.0-32.0); Chloride 105 mmol/L (98-107); Chol HDL Ratio 2.2; Cholesterol 93 mg/dL (<=200); Estimated GFR (African America >60 (>=60 mL/min/1.73m^2); Estimated GFR (Non-African Ame 59 (>=60 mL/min/1.73m^2); Globulin 3.4 g/dL; Glucose 86 mg/dL (74-106); HDL Cholesterol 43 mg/dL (40-60); LDL Cholesterol Calculated 39.4 mg/dL; Potassium 4.3 mmol/L (3.5-5.1); Sodium 142 mmol/L (136-145); Total Protein 7.3 g/dL (6.4-8.2); Triglycerides 53 mg/dL (<=150); VLDL CHOLESTEROL 10.6 mg/dL
[2024-10-16 11:33] LABS: Prostate Specific Antigen Scrn 4.21 ng/mL (<=4.00)
== END 2024-10-16 10:25 | disposition home or self-care (01) ==
LOC: LAB 10:25
PROVIDERS: PCP Internal Medicine; Visit Provider Internal Medicine
DX: N18.31 Chronic kidney disease, stage 3a (principal); E78.00 Pure hypercholesterolemia, unspecified; I71.21 Aneurysm of the ascending aorta, without rupture; I48.0 Paroxysmal atrial fibrillation; Z12.5 Encounter for screening for malignant neoplasm of prostate
CPT/HCPCS: 36415; 80053; 80061; 85025; G0103

== ENCOUNTER 2024-11-13 10:27 | Outpatient (OUT) | payer OTHER, SELFPAY ==
[2024-11-14 04:07] LABS: PSA, Free 0.51 ng/mL; Prostate Specific Ag 4.1 ng/mL (0.0-4.0)
== END 2024-11-13 10:28 | disposition home or self-care (01) ==
PROVIDERS: PCP Internal Medicine; Visit Provider Internal Medicine
DX: Z12.5 Encounter for screening for malignant neoplasm of prostate (principal); R97.20 Elevated prostate specific antigen [PSA]
CPT/HCPCS: 36415; 84153; 84154

== ENCOUNTER 2025-02-09 08:44 | Outpatient (RCR) | payer OTHER, SELFPAY | END 2025-03-03 09:02 | disposition home or self-care (01) | LOC: ST 08:44 | PROVIDERS: PCP Internal Medicine; Visit Provider Psychiatry & Neurology Neurology | DX: K59.01 Slow transit constipation (principal); R13.10 Dysphagia, unspecified; R49.0 Dysphonia | CPT/HCPCS: 92507; 92524 ==

== ENCOUNTER 2025-04-02 10:43 | Outpatient (OUT) | payer OTHER, SELFPAY ==
--- OUTSIDE RECORDS SUMMARY | 2025-04-02 10:50 | XMS_ITS | CCD ---
Author Organization [facility] Care Team Providers Care Evaluation Engineer Name Role Phone Unavailable Primary Care Provider Unavailkayleigh WOODRUFF, DR HANNAH Admitting Unavailable KACY, DR HANNAH Attending Unavailable KACY, DR HANNAH Primary Care Unavailable KACY, DR HANNAH Consulting Unavailable MISC, DR HU Admitting Unavailable MISC, DR HU Attending Unavailable KACY, DR HANNAH Primary Care Unavailable MISC, DR HU Consulting Unavailable ZIEBER, DR MAMIE Contreras Consulting Unavailable Tabby Lindo Unavailable Taras Woodruff Unavailable Unavailable Primary Care Provider Unavailkayleigh jara Unavailable Primary Care Provider UnavailTaras Chavez DO Primary Care Provider TARAS WOODRUFF Primary Care Physician Taras Woodruff DO Primary Care Provider [phone] Taras Woodruff DO Attending Provider Cole Nash MD Attending Provider Tremayne Gibson DO Attending Provider Cole Nash Attending Unavailable Cole Nash Admitting Unavailable Taras Woodruff Primary Care Unavailable Tremayne Gibson Admitting Unavailable Tremayne Gibson Attending Unavailable Taras Woodruff DO Primary Care Provider [phone] Shabana Page APRN Attending Provider Taras Woodruff DO Attending Provider SATHISH SANDRA Attending Unavailable EYAL RAE Referring Unavailable BUTCH, EYAL Attending Unavailable EYAL RAE Referring Unavailable BLANCAZHEN Referring Unavailable BUTCH, EYAL Referring Unavailable AREN JONES Attending Unavailable Cole NASH Attending Unavailable Cole NASH Attending Unavailable Cole NASH Attending Unavailable Cole NASH Attending Unavailable Cole NASH Attending Unavailable Cole NASH Attending Unavailable Cole NASH Attending Unavailable TARAS WOODRUFF Referring Unavailable Cole NASH Attending Unavailable Adama MARTÍNEZ Attending Unavailable Adama MARTÍNEZ Referring Unavailable TARAS WOODRUFF Primary Care Unavailable TREMAYNE GIBSON Attending Unavailable TREMAYNE GIBSON T Referring Unavailable TREMAYNE GIBSON T Attending Unavailable TARAS WOODRUFF Primary Care Unavailable MIKE, TREMAYNE T Referring Unavailable Adama MARTÍNEZ Attending Unavailable COLE NASH Referring Unavailable TARAS WOODRUFF Primary Care Unavailable Medications Current Medications Medication Drug Class(es) Dates Sig (Normalized) Sig (Original) aspirin 325 mg oral tablet (20 sources) Platelet Aggregation Inhibitor, Nonsteroidal Anti-inflammatory Drug Start: 10-03-2023 take 1 tablet by mouth once daily Aspirin 325 mg tablet Active 325 MG PO Daily October 03, 2023 1:00am Complies with drug therapy Start: 12-15-2020 take 1 tablet by bushra th once daily aspirin 325 mg Oral EC Tab 325 mg = 1 tab(s), Oral, Daily, # 30 tab(s), Refills(s) 0 Start Date: 12/15/20 Status: Ordered Quantity: 30.0 Unit: tab(s) Repeat number: 1 Comment on above: Take 325 mg by mouth once daily. atorvastatin 80 mg oral tablet (17 sources) HMG-CoA Reductase Inhibitor Start: End: take 1 tablet by mouth once daily at bedtime Atorvastatin 80 mg tablet Active 80 MG PO Daily at bedtime March 13, 2025 10:57am Complies with drug therapy take 1 tablet by mouth once jen y atorvastatin (LIPITOR) 40 mg tablet Take 40 mg by mouth once daily. Active carbidopa 25 mg / levodopa 100 mg oral tablet (20 sources) Aromatic Amino Acid Decarboxylation Inhibitor, Aromatic Amino Acid Start: 11-24-2024 carbidopa-levodopa 2 5 mg-100 mg Tab 1 tab(s), Refill(s) 0 Start Date: 11/24/24 Status: Ordered Repeat number: 1 Start: 01-31-2024 End: 09-02-2024 take 1 tablet by mouth four times daily carbidopa-levodopa (SINEMET) 25-100 mg per tablet Indications: PD (Parkinson's disease) ([facility]) Take 1 tablet by mouth four times daily. 120 tablet 11 09/03/2024 Active Start: 10-03-2022 take 1 tablet by bushra every eight hours Sinemet 10-100 MG 1 tablet Orally Three times a day for 30 days Sep, Active Start: 12-29-2021 End: 11-14-2024 take 1 tablet by mouth three times daily Carbidopa-Levodopa 25-100 mg tablet Active 1 TAB PO Three times daily October 03, 2023 1:00am Complies with drug therapy Carbidopa-Levodo pa 25-100 MG TAKE 1 TABLET BY MOUTH THREE TIMES A DAY FOR 30 DAYS for 90 days replaces previous script sent Active Comment on above: Take 1 tablet by bushra three times daily. Take 1 tablet by bushra three times a day. cefdinir 300 mg oral capsule (1 source) Cephalosporin Antibacterial Start: 5 take 1 capsule by mouth twice daily Cefdinir 300 mg capsule Active 300 MG PO Twice daily 16 02March 19, 2025 12:00am Complies with drug therapy 24 hr dilTIAZem hydrochloride 120 mg extended release oral capsule (20 sources) Calcium Channel Eugenio Start: 5 take 1 capsule by mouth once daily in the morning Diltiazem Hcl 120 mg capsule,extended release 24hr Active 120 MG PO Every morning March 13, 2025 12:00am Complies with drug therapy Start: 10-03-2023 End: 03-13-2025 take 1 capsule by mouth once daily Diltiazem Hcl 240 mg capsule,extended release 24hr Discontinued 240 MG PO Daily October 03, 2023 1:00am March 13, 2025 10:59am dilTIAZem CR (TI AZAC, TAZTIA XT) 120 mg 24 hr capsule Take 240 mg by mouth once daily. Active Comment on above: Take 240 mg by mouth once daily. DilTIAZem (Eqv-Cardizem CD) 120 mg/24 hours oral capsule, extended release (1 source) Start: 5 DilTIAZem (Eqv-Cardizem CD) 120 mg/24 hours oral capsule, extended release 120 mg = 1 cap(s), Refills(s) 0 Start Date: 11/24/24 Status: Ordered Repeat number: 1 doxycycline hyclate 100 mg oral capsule (2 sources) Tetracycline-class Drug Start: 4 take 1 capsule by mouth every twelve hours Doxycycline Hyclate 100 MG 1 capsule Orally Twice a day for 5 days Aug, Active latanoprost 0.05 mg/ml ophthalmic solution (2 sources) Prostaglandin Analog Start: 5 Latanoprost 0.005 % drops Active DROPS OPHTHALMIC March 13, 2025 12:00am Complies with drug therapy predniSONE 10 mg oral tablet (13 sources) Start: 5 take 1 tablet by mouth three times daily, then take 1 tablet by mouth twice daily, then take 1 tablet by mouth once daily Prednisone 10 mg tablet Active 10 MG PO As Directed 16 March 19, 2025 12:00am 1 tab tid w/ food x 2 days, then 1 tab bid w/ food x 3 days then 1 tab qd w/ food x 4 days Complies with drug therapy Start: 09-19-2022 take 1 tablet by bushra th every twelve hours prednisone 20 MG 1 tablet Orally Twice a day for 5 days Sep, Not-Taking/PRN Start: 06-21-2013 take 1 tablet by bushra th every twelve hours rimegepant 75 mg disintegrat ing oral tablet (3 sources) Nurtec 75 MG 1 t ablet on the tongue and allow to dissolve Orally Active Completed/Discontinued Medications Medication Drug Class(es) Dates Sig (Normalized) Sig (Original) azithromycin 250 mg oral tablet (12 sources) Macrolide Antimicrobial Start: 06-21-2013 Azithromycin 250 MG 2 tablet on the first day, then 1 tablet daily for 4 days Orally Once a day for 5 day(s) Sep, Not-Taking/PRN benzonatate 100 mg oral capsule (6 sources) Non-narcotic Antitussive Start: 10-03-2023 End: 10-04-2023 take 1 capsule by mouth three times daily as needed Benzonatate 100 mg capsule Discontinued 100 MG PO Three times daily as needed October 03, 2023 1:00am October 04, 2023 9:58am Start: 08-10-2023 take 1 capsule by mo [facility] every eight hours Benzonatate 100 MG 1 capsule as needed Orally Three times a day for 10 days Aug, Active sulfamethoxazole 800 mg / trimethoprim 160 mg oral tablet (6 sources) Dihydrofolate Reductase Inhibitor Antibacterial, Sulfonamide Antimicrobial Start: 10-16-2024 End: 03-13-2025 take 1 tablet by mouth twice daily Sulfamethoxazole-Trimethoprim 800-160 mg tablet Discontinued 1 TAB PO Twice daily 56 October 16, 2024 4:29pm March 13, 2025 10:59am Problems Active Problems Problem Classification Problem Date Documented Da te Episodic/Chronic Abdominal hernia (10 sources) Inguinal hernia; Translations: [Unilateral inguinal hernia, without obstruction or gangrene, not specified as recurrent] 11-26-2020 Episodic Acute bronchitis (8 sources) Acute bronchitis; Translations: [Acute bronchitis due to other specified organisms] Onset: 11-17-2014 Episodic Aortic; peripheral; and visceral artery aneurysms (7 sources) Aneurysm of ascending aorta; Translations: [Ascending aortic aneurysm] Onset: 04-03-2023 10-03-2024 Chronic Comment on above: CTA: 4.2cm - 2019, 4 .2cm - 2023 Cancer of prostate (7 sources) Malignant neoplasm of prostate; Translations: [Malignant tumor of prostate] Onset: 01-05-2025 Chronic Comment on above: TRUS/Bx 12/2024,Gleas on 3+3, grp I Cardiac dysrhythmias (17 sources) Paroxysmal atrial fibrillation; Translations: [Paroxysmal atrial fibrillation] Onset: 04-03-2023 Chronic Comment on above: Echo: LVEF 60%, norm al RV size/function, RVSP 23, ascending aorta 4.5cm - 10/2024 Cardiac dysrhythmias (12 sources) Bradycardia; Translations: [Bradycardia, unspecified] 10-03-2024 Episodic Chronic kidney disease (8 sources) Chronic kidney disease stage 3; Translations: [Chronic kidney disease, stage 3 unspecified] Onset: 05-06-2018 10-03-2024 Chronic Chronic obstructive pulmonary disease and bronchiectasis (3 sources) Bronchitis; Translations: [Bronchitis NOS] Episodic Conduction disorders (19 sources) Presence of cardiac pacemaker; Translations: [Cardiac pacemaker] Onset: 04-03-2023 Chronic Disorders of lipid metabolism (20 sources) Hypercholesterolemia ; Translations: [Pure hypercholesterolemia , unspecified] Onset: 05-06-2018 Chronic Headache; including migraine (13 sources) Migraine; Translations: [Migraine, unspecified, not intractable, without status migrainosus] 10-03-2023 Chronic Headache; including migraine (3 sources) Headache; Translations: [Headache, unspecified] Episodic Hyperplasia of prostate (20 sources) Lower urinary tract symptoms due to benign prostatic hypertrophy; Translations: [Benign prostatic hyperplasia with lower urinary tract symptoms] Onset: 01-05-2025 Chronic Other acquired deformities (3 sources) Acquired spondylolisthesis; Translations: [Spondylolisthesis, lumbosacral region] Episodic Other gastrointestinal disorders (2 sources) Slow transit constipation; Translations: [Slow transit constipation] 01-11-2025 Episodic Other gastrointestinal disorders (2 sources) Dysphagia; Translations: [Dysphagia, unspecified] 01-11-2025 Episodic Other gastrointestinal disorders (2 sources) Slow transit constipation; Translations: [Slow transit constipation] Onset: 01-08-2025 Episodic Other gastrointestinal disorders (1 source) Swallowing painful; Translations: [Dysphagia, unspecified] 03-19-2025 Episodic Other gastrointestinal disorders (1 source) Dysphagia, unspecified; Translations: [Dysphagia, unspecified type] Onset: 01-08-2025 Episodic Other nervous system disorders (20 sources) Hereditary peripheral neuropathy; Translations: [Hereditary and idiopathic neuropathy, unspecified] Onset: 10-06-2021 10-06-2021 Chronic Other nervous system disorders (7 sources) Polyneuropathy; Translations: [Polyneuropathy, unspecified] 10-03-2023 Chronic [...] conditions (not mental disorders or infectious disease) (10 sources) Encounter for screening for malignant neoplasm of prostate; Translations: [Patient encounter status] Onset: 10-08-2022 10-06-2024 Episodic Comment on above: PSA: 2.60 - 01/2021, 3.9 - 09/2023, 4.21 - 10/2024 Other upper respiratory infections (13 sources) Acute maxillary sinusitis; Translations: [Acute maxillary sinusitis, unspecified] Onset: 11-17-2014 Episodic Parkinson`s disease (20 sources) Impaired cognition; Translations: [Parkinson's disease] Onset: 10-06-2021 Chronic Parkinson`s disease (1 source) Parkinson`s disease; Translations: [Parkinson's disease without dyskinesia or fluctuating manifestations (HCC)] Onset: 10-06-2021 Residual codes; unclassified (2 sources) REM sleep behavior disorder; Translations: [REM sleep behavior disorder] 11-15-2023 Chronic Residual codes; unclassified (1 source) REM sleep behavior disorder; Translations: [RBD (REM behavioral disorder)] Onset: 05-29-2024 Chronic Residual codes; unclassified (1 source) Family history of cancer; Translations: [Family history of malignant neoplasm of prostate] Onset: 01-05-2025 Episodic Residual codes; unclassified (1 source) Family history of prostate cancer 11-24-2024 Episodic Spondylosis; intervertebral disc disorders; other back problems (4 sources) Lumbosacral spondylosis without myelopathy; Translations: [Spondylosis without myelopathy or radiculopathy, lumbar region] 08-11-2020 Chronic Syncope (1 source) Syncope and collapse Episodic Unclassified (20 sources) Parkinson's disease; Translations: [PD (Parkinson's disease)] Onset: 10-06-2021 05-10-2023 Chronic Unclassified (1 source) Body mass index 20-24 - normal 01-11-2021 Unclassified (1 source) Aneurysm of the ascending aorta, without rupture; Translations: [Aneurysm of the ascending aorta, without rupture] Onset: 04-16-2024 Unclassified (1 source) Consult Onset: 01-09-2025 Unclassified (1 source) PD (Parkinson's disease) (HCC); Translations: [PD (Parkinson's disease) (HCC)] Onset: 10-06-2021 Past or Other Problems Problem Classification Problem Date Documented Da te Episodic/Chronic Diseases of mouth; excluding dental (3 sources) Excessive salivation; Translations: [Disturbances of salivary secretion] Onset: 05-29-2024 11-15-2023 Episodic Noninfectious gastroenteritis (3 sources) Non-infective enteritis and [...] 10-14-2021 10-14-2021 Episodic Other upper respiratory disease (15 sources) Hypokinetic parkinsonian dysphonia; 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] Onset: 10-13-2021 10-13-2021 Episodic Spondylosis; intervertebral disc disorders; other back problems (3 sources) Low back pain; Translations: [Low back pain, unspecified] Onset: 09-25-2016 Episodic Unclassified (1 source) Persistent cough R05.3 Unclassified (1 source) Acute cough R05.1 Unclassified (1 source) Aneurysm of the ascending aorta, without rupture; Translations: [Aneurysm of the ascending aorta, without rupture] Onset: 04-16-2024 Results Test Name Value Interpretation Reference Range Facility [facility] 03-31-2025 [facility] Telephone (RADTSA) COLE RAMOS ([id number]) 1960 M Date Time Provider Department 03/31/25 Adama MARTÍNEZ During your visit today, we recorded the following information about you: Deepika Merino RN 03/31/2025 10:50 AM Signed I called and spoke with Cole and reviewed his bowel prep instructions today for tomorrow's volume study. He denies questions at this time. He is aware to arrive at 8:45 tomorrow a.m. Deepika Merino RN Allergies As of Date: 03/31/2025 (No Known Allergies) Date Reviewed: 01/09/2025 Reviewed by: Graves, Deepika E, RN - Fully Assessed Reason for Visit: Appointment [186] Prescriptions as of 03/31/2025 - carbidopa-levodopa (SINEMET) 25-100 mg per tablet Take 1 tablet by mouth four times daily. - atorvastatin (LIPITOR) 80 mg tablet Take 80 mg by mouth once daily. - dilTIAZem CR (TIAZAC, TAZTIA XT) 120 mg 24 hr capsule Take 240 mg by mouth once daily. - aspirin 325 mg tablet Take 325 mg by mouth once daily. 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 Encounter Status:Closed by DEEPIKA MERINO on 03/31/25 Normal [facility] Office Visiton 03-18-2025 Follow-up visit [id number] Jurgen Ramos 1960 M Date Provider Department Center 03/18/2025 [id number] JONES Family History Family Status - Relation Status Age at Mother Alive Father Level of Service:67702 HI OFFICE/OUTPATIENT ESTABLISHED MOD MDM 30 MIN Reason for Visit and Comments: Pre-op Exam [775162] Atrial Fibrillation [80] Normal [facility] No Panel InformationOrdered By: Shabana Page on 03-13-2025 Quick Strep (POC) [facility] CNPImelda 02-09-2025 CNPN Telephone (RADTSA) COLE RAMOS ([id number]) 1960 Date Time Provider Department 02/09/25 Adama MARTÍNEZ During your visit today, we recorded the following information about you: Jennifer Sal RN 02/09/2025 2:43 PM Signed Call placed to pt to let him know that we are unable to coordinate April implant until we get physics schedule for that time frame. At this time, we are unable to give him an update. Message was left assuring pt that both Deepika and Varun are working on this, Dr Martínez is aware and it will be coordinated as soon as possible. NATHAN Messer Angela, RN 02/11/2025 12:36 PM Signed Pt requested April due to schedule. NATHAN Messer Ariana E, RN 02/13/2025 2:44 PM Signed Any with Dr. Nash office notified that rescheduling Mr. Ramos's implant is pending our physics schedule. Our office will contact their office doug to reschedule. NATHAN Gonzales Angela, RN 03/10/2025 3:50 PM Signed Call placed to pt to confirm his availability for surgery/volume study in April. Will need to find out if pt can do VS in March if we can do an early/mid April implant. LM requesting CB. NATHAN Messer Ariana E, RN 03/13/2025 1:34 PM Signed I notified Cole of his upcoming appointments for his volume study and prostate seed implant. He is in agreement with those dates. Appointment slip and volume study instructions mailed to patient. Deepika Merino RN Allergies As of Date: 02/09/2025 (No Known Allergies) Date Reviewed: 01/09/2025 Reviewed by: Deepika Merino RN - Fully Assessed Reason for Visit: Future Appointment [256] Patient Update [1234] Prescriptions as of 03/13/2025 - carbidopa-levodopa (SINEMET) 25-100 mg per tablet Take 1 tablet by mouth four times daily. - atorvastatin (LIPITOR) 80 mg tablet Take 80 mg by mouth once daily. - dilTIAZem CR (TIAZAC, TAZTIA XT) 120 mg 24 hr capsule Take 240 mg by mouth once daily. - aspirin 325 mg tablet Take 325 mg by mouth once daily. 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 He spoke to Dr Nash office and they instructed him to call us to start the scheduling process. Dr Martínez- please advise. Are we ok to schedule this? Thank you NATHAN Messer Angela, NATHAN 01/15/2025 1:43 PM Signed Scheduling process started and LM dory Belcher at Dr Nash office to begin coordinating. We will contact pt once this has been scheduled. NATHAN Messer Angela, RN 01/15/2025 3:34 PM Signed Call placed and LM for pt to confirm dates/times of VS and seed Implant. Requested pt CB to review and appts were mailed to pt. NATHAN Messer Ariana E, RN 01/16/2025 10:02 AM Saqib Benedict returned our call and states the current appointments will not work for him. He would like the implant scheduled after Apr 13, 2025. He said volume study appt can be Mar or Apr. Appt's will be rescheduled and patient will be notified. Deepika Merino RN Allergies As of Date: 01/14/2025 (No Known Allergies) Date Reviewed: 01/09/2025 Reviewed by: Deepika Merino RN - Fully Assessed Reason for Visit: Future Appointment [256] Patient Update [1234] Prescriptions as of 01/16/2025 - carbidopa-levodopa (SINEMET) 25-100 mg per tablet Take 1 tablet by mouth four times daily. - atorvastatin (LIPITOR) 80 mg tablet Take 80 mg by mouth once daily. - dilTIAZem CR (TIAZAC, TAZTIA XT) 120 mg 24 hr capsule Take 240 mg by mouth once daily. - aspirin 325 mg tablet Take 325 mg by mouth once daily. 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 (H*10/18/2021 Encounter Status:Closed by JENNIFER SAL on 01/15/25 Normal [facility] 36on 01-12-2025 36 Bertha Posada MA P Cardiology Clinical Support Pool Caller: Unspecified (3 days ago, 1:41 PM) Previous Messages Patient Call (Newest Message First) View All Conversations on this Encounter Bertha Posada MA routed conversation to Cardiology Clinical Support Pool3 days ago Meg Wilkinson MA routed conversation to [facility] Cardiology Clinic Clinical Support Pool3 days ago Meg Wilkinson MA3 days ago LEO Alejandre with [facility] would like to know if pt is pacemake dependent? Okay to leave message [phone] radiation nurses station. Spoke to [facility] advised them patient is not pacemaker dependent. [facility] 36on 01-09-2025 36 Pili with [facility] would like to know if pt is pacemake dependent? Okay to leave message [phone] radiation nurses station. Normal [facility] CNOVon 01-09-2025 CNOV Office Visit (RADTSA ) COLE RAMOS ([id number]) 1960 M Date Time Provider Department 01/09/25 11:00 AM Adama MARTÍNEZ RADPHYLLIS During your visit today, we recorded the following information about you: Temperature Pulse Respiration Blood pressure 98.1 degrees 94/minute 16/minute 120/84 Weight Height 88.5 kg 1.956 m Adama Martínez MD 01/15/2025 12:19 PM Signed Radiation Oncology - Prostate Cancer New Patient/Consult Note PATIENT NAME: Cole Ramos PATIENT REQUESTING PROVIDER: Dr. Nash DIAGNOSIS: 64 year old male with prostate adenocarcinoma, initial PSA 4.2, biopsy Piqua score 3 + 3 = 6 (grade group 1), clinical stage T2a, N0, M0, stage I [cT1a-c/T2a, N0, M0, PSA <10, GG 1] (AJCC 8th ed.), s/p biopsy. NCCN Risk Group: Low Risk Group HPI: 64 year old male with prostate adenocarcinoma who presents for an opinion regarding the role of radiation therapy in the management of the patient's disease. Final recommendations will be communicated back to the requesting physician by way of the shared medical record, or letter to requesting physician via US mail. The patient was diagnosed with prostate cancer and comes in today to discuss treatment options. Patient has a history of BPH and obstructive symptoms. Family history markable for his father prostate cancer. He was found to have an elevated PSA and felt to have a nodule for Dr. Nash on exam. PSA 10/16/2024 4.21 previously 3.08 on 10/03/2022. PSA repeated 11/13/2024, 4.1 with 12.4% free after course of antibiotics. Prostate biopsy on December 23, 2024 revealed: 25 cc gland. No discrete hypoechoic areas noted. Abnormal CHAUNCEY and L1 region, 4 biopsies taken this area. Pathology revealed adenocarcinoma, Piqua 6 (3+3) from L4 L3 L2 and L1 biopsy segments Total # of positive biopsy cores: 6 Total # of biopsy cores sampled: 18 Greatest % cancer in any single core: Greater than 50% Staging Studies: None Previous Treatment for Prostate Cancer: None Genomic Testing: None The patient reports the following pertinent history: Urinary frequency (D/N): 4-6/1-2 Dysuria: No Incontinence: 1- No pads Hematuria: No - Total AUA Score: 5 Bowel Movement Frequency: 1/day Bowel Movement Quality: Normal Blood per Rectum: No Last Colonoscopy: na Prior Radiation Therapy, Collagen Vascular Disease, or Inflammatory Bowel Disease: No Any implanted or external electric devices? No Currently on Anticoagulation: No History of Hip Replacement: No History of Prior TURP: No ALLERGIES No Known Allergies carbidopa-levodopa (SINEMET) 25-100 mg per tablet Take 1 tablet by mouth four times daily. atorvastatin (LIPITOR) 80 mg tablet Take 80 mg by mouth once daily. dilTIAZem CR (TIAZAC, TAZTIA XT) 120 mg 24 hr capsule Take 240 mg by mouth once daily. aspirin 325 mg tablet Take 325 mg by mouth once daily. PAST MEDICAL HISTORY Diagnosis Date Neurocardiogenic syncope Neurocardiogenic syncope PD (Parkinson's disease) ([facility]) 12/2021 PAST SURGICAL HISTORY Procedure Laterality Date ANESTH,PACEMAKER INSERTION HERNIA REPAIR HX MOHS left neck TONSILLECTOMY AND ADENOIDECTOMY FAMILY HISTORY Problem Relation Age of Onset Neuropathy Mother Prostate Cancer Father Neuropathy Maternal Grandmother Colon Cancer Maternal Grandmother Neuropathy Maternal Aunt Neuropathy Maternal Uncle Social History Tobacco Use Smoking status: Never Smokeless tobacco: Never Substance Use Topics Alcohol use: Not Currently Drug use: Not Currently REVIEW OF SYSTEMS: GENERAL: feeling well without fatigue, no recent change in weight NECK: denies swelling or pain in neck RESPIRATORY: no cough, no wheezing or shortness of breath CARDIOVASCULAR: no chest pain, no palpitations MUSCULOSKELETAL: denies any painful or swollen joints, no muscle aches SKIN: no rash NEURO: no numbness or paresthesias and no weakness of the extremities As noted in HPI PHYSICAL EXAM: VS: BP 120/84 Pulse 94 Temp 36.7 ?C (98.1 ?F) Resp 16 Ht 195.6 cm (6' 5 ) Wt 88.5 kg (195 lb 1.7 oz) SpO2 97% BMI 23.14 kg/m? KARNOFSKY PERFORMANCE STATUS: 100 General Appearance: Alert and oriented. No acute distress. HEENT: NCAT. Sclera anicteric. PERRL. EOMI. Chest: No respiratory distress. Lungs clear to auscultation bilaterally. Abdomen: Soft. Nontender. Nondistended. Musculoskeletal: No edema. Normal ROM in extremities. No bone or spine tenderness. Neuro: Speech fluent. Gait normal. No focal deficits. Rectal: Deferred RADIOLOGY/LABORATORY DATA: see HPI ASSESSMENT/PLAN: Prostate adenocarcinoma, initial PSA 4.2, biopsy Adeline score 3 + 3 = 6 (grade group 1), clinical stage T2a, N0, M0, stage I [cT1a-c/T2a, N0, M0, PSA <10, GG 1] (AJCC 8th ed.), s/p biopsy. NCCN Risk Group: Low Risk Group Patient presents with a palpable low risk adenocarcino (more content not included)... Normal [facility] 01-09-2025 [facility] Telephone (RADTSA) COLE RAMOS ([id number]) 1960 M Date Time Provider Department 01/09/25 Adama MARTÍNEZ During your visit today, we recorded the following information about you: Deepika Merino RN 01/09/2025 1:44 PM Signed I called and spoke to Meg at [phone], Dr. Santos's office, asking if Cole is pacemaker dependent. She is unsure but will call back [facility] with an update. DeepikaNATHAN Chang Angela, RN 01/12/2025 1:19 PM Signed Call received from NASH at [facility] Cardiology. PT is NOT pacemaker dependent. Jennifer Sal RN Allergies As of Date: 01/09/2025 (No Known Allergies) Date Reviewed: 01/09/2025 Reviewed by: Deepika Merino RN - Fully Assessed Reason for Visit: Patient Update [1234] Prescriptions as of 01/20/2025 - carbidopa-levodopa (SINEMET) 25-100 mg per tablet Take 1 tablet by mouth four times daily. - atorvastatin (LIPITOR) 80 mg tablet Take 80 mg by mouth once daily. - dilTIAZem CR (TIAZAC, TAZTIA XT) 120 mg 24 hr capsule Take 240 mg by mouth once daily. - aspirin 325 mg tablet Take 325 mg by mouth once daily. 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 software for draft documentation of the visit was discussed with the patient/authorized care support representative; all questions welcomed and answered. Patient/authorized care support representative agreed to proceed Taras Woodruff DO [address] [facility] [id number] Dear Taras Woodruff DO: I had the pleasure of seeing Mr. Ramos for follow-up today. As you know he is a 64 year old male with a history of PD since 2021. Subjective Previous Plan- 05/29/2024 Visit: Continue current antiparkinsonian regimen as [...] important Interested in clinical research? Not currently Interval History: Cole is a 64-year-old male with a history of Parkinson's disease, presenting for follow-up. He is accompanied by his , who provides additional history. Cole reports a recent diagnosis of prostate cancer, which he describes as very treatable. He is scheduled to meet with his oncologist tomorrow to discuss treatment options, including surgery and radiation. He expresses anxiety about the diagnosis but feels more at ease now that he has more information. He reports significant constipation, describing bowel movements as very strenuous. He previously used Miralax but discontinued it, believing it was ineffective. He plans to resume Miralax and adhere to it consistently. He also notes frequent gas, which he did not experience before. He reports occasional drooling at night and a sensation of phlegm buildup in his throat, requiring him to clear his throat before speaking. He carries water with him to manage this issue. He recalls a previous swallow study at [facility] and participated in speech therapy for 3-4 months, which he found challenging due to work commitments. He does not endorse acting out dreams, dyskinesias, or wearing off of medication effects. He continues physical therapy 2-3 times per week and inquires about continuing it during radiation treatment. He does not report any issues with his current medication regimen, which includes Sinemet four times daily. Movement Disorders Medications Schedule - as of the start of the visit: Medications 7A 10A 1P 4P Sinemet 25/100 1 1 1 1 Questionnaires: In addition, the following areas that may be affected by abnormal involuntary movements were evaluated: Daily activities Difficulties with eatin (none) Difficulties in dressing: Yes (slight) Difficulties with hygiene activities: 0 (none) Difficulties with handwritin (none) Difficulties with doing hobbies and other activities: 0 (none) Difficulties turning in bed: Yes (slight) Difficulties getting out of bed, car or chair: 0 (none) Tremors/Gait/Balance Shaking or tremors: Yes (slight) Walking and balance problems: 0 (none) Number of falls in the Last Month: none Gait freezin (none) Autonomic/Pain Lightheadeness on standing: Yes (slight) Urinary problems: 0 (none) Constipation problems: Yes (slight) Pain and other sensations: 0 (none) Speech/Swallowing Speech problems: Yes (mild) Drooling: Yes (mild) Chewing and swallowing problems: 0 (none) Sleep/Fatigue Sleep problems: Yes (slight) Daytime sleepiness: 0 (none) Fatigue: Yes (slight) Mood/Behavior Depression: PHQ-9 Score: 0 usually representing no significant (0-4) depression. Anxiety: JUAN C-7 Total Score: 0 usually representing no significant (0-4) anxiety. Finally, the following table shows the patient's overall global physical and mental health using the PROMIS scale: PROMIS-10 Flowsheet Row Office Visit from 01/08/2025 in Neurology Office Visit from 05/29/2024 in Neurology Global Physical Health T Score 54.1 57.7 Global Mental Health T Score 53.3 62.5 0-10 Standard Pain Scale 4 5 *PROMIS-10 scoring scale: mean = 50, over 50 is above average, under 50 is below average ALLERGIES No Known Allergies Current Outpatient Medications Medication Sig carbidopa-levodopa (SINEMET) 25-100 mg per tablet Take 1 tablet by mouth four times daily. atorvastatin (LIPITOR) 80 mg tablet Take 80 mg by mouth once daily. dilTIAZem CR (TIA (more content not included)... Normal [facility] Ambulatory Visit Summaryon 0 01-05-2025 Ambulatory Visit Summary Ambulatory Visit Summary COLE RAMOS :1960 Visit Date:01/05/2025 Ambulatory Visit Instructions Your Diagnosis Prostate cancer BPH with obstruction/lower urinary tract symptoms Family history of prostate cancer in father Your Care Team Attending Physician - Cole NASH MD Primary Care Physician - TARAS WOODRUFF DO This Is Your Medications List Contact prescribing physician if questions or concerns aspirin (aspirin 325 mg Oral EC Tab) atorvastatin (atorvastatin 80 mg Tab) carbidopa-levodopa (carbidopa-levodopa 25 mg-100 mg Tab) diltiazem (DilTIAZem (Eqv-Cardizem CD) 120 mg/24 hours oral capsule, extended release) Procedures Performed TRUS (transrectal ultrasound) guided cryoablation of prostate (12/23/2024), Inguinal herniorrhaphy (12/08/2020), Cardiac pacemaker (08/06/2008), History of tonsillectomy (08/06/2008). Discharge Vitals Heart Rate (Peripheral) 86 Respiratory Rate 16 Blood Pressure 138/81 Height 195 cm Height 77 in Weight 88.5 kg Weight 195.109 lb BMI 23.27 What to do next You Need to Schedule the Following Appointments Follow Up with CHARITY TAFOYA, Cole Contreras, URL When: Comments: referral to rad/onc Where: [facility] [address] , [place] [address] [phone] Someone Will Contact You Regarding These Appointments [facility] External Ambulatory Referral, Other (needs to be filled in), Other Referral, Referral to Dr. Martínez to discuss prostate cancer tx, 01/05/25 9:32:00 EDT, Prostate cancer Medications What How Much When Instructions Unchanged aspirin (aspirin 325 mg Oral EC Tab) 1 Tablets By Mouth Every day Contact prescribing physician if questions or concerns Unchanged atorvastatin (atorvastatin 80 mg Tab) 1 Tablets Contact prescribing physician if questions or concerns Unchanged carbidopa-levodopa (carbidopa-levodopa 25 mg-100 mg Tab) 1 Tablets Contact prescribing physician if questions or concerns Unchanged diltiazem (DilTIAZem (Eqv-Cardizem CD) 120 mg/ 24 hours oral capsule, extended release) 1 Capsules Contact prescribing physician if questions or concerns Allergies No Known Allergies Problems Ongoing - Any problem that you are currently receiving treatment for. Benign prostatic hyperplasia with nocturia BMI 20.0-20.9, adult BPH with obstruction/lower urinary tract symptoms Elevated PSA Family history of prostate cancer in father Lumbar spondylosis Pacemaker Parkinson disease Paroxysmal atrial fibrillation Prostate cancer Prostate nodule Pure hypercholesterolemia Right inguinal hernia Symptomatic bradycardia Patient Survey You may receive a survey via text or e-mail asking about your office visit. Please share your experience with us by completing your survey. We appreciate your feedback and thank you for choosing us for your care. Education Materials Prostate Cancer The prostate is a small gland that produces fluid that makes up semen (seminal fluid). It is located below the bladder in men, in front of the rectum. Prostate cancer is the abnormal growth of cells in the prostate gland. What are the causes? The exact cause of this condition is not known. What increases the risk? You are more likely to develop this condition if: ??? You are 65 years of age or older. ??? You have a family history of prostate cancer. ??? You have a family history of breast and ovarian cancer. ??? You have genes that are passed from parent to child (inherited), such as BRCA1 and BRCA2. ??? You have Dior syndrome. men and men of descent are diagnosed with prostate cancer at higher rates than other men. The reasons for this are not well understood and are likely due to a combination of genetic and environmental factors. What are the signs or symptoms? Symptoms of this condition include: ??? Problems with urination. This may include: ? A weak or interrupted flow of urine. ? Trouble starting or stopping urination. ? Trouble emptying the bladder all the way. ? The need to urinate more often, especially at night. ??? Blood in urine or semen. ??? Persistent pain or discomfort in the lower back, lower abdomen, or hips. ??? Trouble getting an erection. ??? Weakness or numbness in the legs or feet. How is this diagnosed? This condition can be diagnosed with: ??? A digital rectal exam. For this exam, a health care provider inserts a gloved finger into the rectum to feel the prostate gland. ??? A blood test called a prostate-specific antigen (PSA) test. ??? A procedure in which a sample of tissue is taken from the prostate and checked under a microscope (prostate biopsy). ??? An imaging test called transrectal ultrasonography. Once the condition is diagnosed, tests will be done to determine how far the cancer has spread. This is called staging the cancer. Staging may involve imagin (more content not included)... Normal [facility] Ambulatory Visit Summary Ambulatory Visit Summary COLE RAMOS :1960 Visit Date:01/05/2025 Ambulatory Visit Instructions Your Diagnosis Prostate cancer BPH with obstruction/lower urinary tract symptoms Family history of prostate cancer in father Your Care Team Attending Physician - Cole NASH MD Primary Care Physician - TARAS WOODRUFF DO This Is Your Medications List Contact prescribing physician if questions or concerns aspirin (aspirin 325 mg Oral EC Tab) atorvastatin (atorvastatin 80 mg Tab) carbidopa-levodopa (carbidopa-levodopa 25 mg-100 mg Tab) diltiazem (DilTIAZem (Eqv-Cardizem CD) 120 mg/24 hours oral capsule, extended release) Procedures Performed TRUS (transrectal ultrasound) guided cryoablation of prostate (12/23/2024), Inguinal herniorrhaphy (12/08/2020), Cardiac pacemaker (08/06/2008), History of tonsillectomy (08/06/2008). Discharge Vitals Heart Rate (Peripheral) 86 Respiratory Rate 16 Blood Pressure 138/81 Height 195 cm Height 77 in Weight 88.5 kg Weight 195.109 lb BMI 23.27 What to do next You Need to Schedule the Following Appointments Follow Up with CHARITY TAFOYA, Cole Contreras, URL When: Comments: referral to rad/onc Where: [facility] [address] [place] [address]- [phone] Someone Will Contact You Regarding These Appointments [facility] External Ambulatory Referral, Other (needs to be filled in), Other Referral, Referral to Dr. Martínez to discuss prostate cancer tx, 01/05/25 9:32:00 EDT, Prostate cancer Medications What How Much When Instructions Unchanged aspirin (aspirin 325 mg Oral EC Tab) 1 Tablets By Mouth Every day Contact prescribing physician if questions or concerns Unchanged atorvastatin (atorvastatin 80 mg Tab) 1 Tablets Contact prescribing physician if questions or concerns Unchanged carbidopa-levodopa (carbidopa-levodopa 25 mg-100 mg Tab) 1 Tablets Contact prescribing physician if questions or concerns Unchanged diltiazem (DilTIAZem (Eqv-Cardizem CD) 120 mg/ 24 hours oral capsule, extended release) 1 Capsules Contact prescribing physician if questions or concerns Allergies No Known Allergies Problems Ongoing - Any problem that you are currently receiving treatment for. Benign prostatic hyperplasia with nocturia BMI 20.0-20.9, adult BPH with obstruction/lower urinary tract symptoms Elevated PSA Family history of prostate cancer in father Lumbar spondylosis Pacemaker Parkinson disease Paroxysmal atrial fibrillation Prostate cancer Prostate nodule Pure hypercholesterolemia Right inguinal hernia Symptomatic bradycardia Patient Survey You may receive a survey via text or e-mail asking about your office visit. Please share your experience with us by completing your survey. We appreciate your feedback and thank you for choosing us for your care. Education Materials Prostate Cancer The prostate is a small gland that produces fluid that makes up semen (seminal fluid). It is located below the bladder in men, in front of the rectum. Prostate cancer is the abnormal growth of cells in the prostate gland. What are the causes? The exact cause of this condition is not known. What increases the risk? You are more likely to develop this condition if: ??? You are 65 years of age or older. ??? You have a family history of prostate cancer. ??? You have a family history of breast and ovarian cancer. ??? You have genes that are passed from parent to child (inherited), such as BRCA1 and BRCA2. ??? You have Dior syndrome. men and men of descent are diagnosed with prostate cancer at higher rates than other men. The reasons for this are not well understood and are likely due to a combination of genetic and environmental factors. What are the signs or symptoms? Symptoms of this condition include: ??? Problems with urination. This may include: ? A weak or interrupted flow of urine. ? Trouble starting or stopping urination. ? Trouble emptying the bladder all the way. ? The need to urinate more often, especially at night. ??? Blood in urine or semen. ??? Persistent pain or discomfort in the lower back, lower abdomen, or hips. ??? Trouble getting an erection. ??? Weakness or numbness in the legs or feet. How is this diagnosed? This condition can be diagnosed with: ??? A digital rectal exam. For this exam, a health care provider inserts a gloved finger into the rectum to feel the prostate gland. ??? A blood test called a prostate-specific antigen (PSA) test. ??? A procedure in which a sample of tissue is taken from the prostate and checked under a microscope (prostate biopsy). ??? An imaging test called transrectal ultrasonography. Once the condition is diagnosed, tests will be done to determine how far the cancer has spread. This is called staging the cancer. Staging may involve imagin (more content not included)... Normal [facility] Urology Office/Clinic Noteon 01-05-2025 Urology Office/Clinic Note Urology Office/Clinic Note Chief Complaint Discuss Path HPI Staff F/u to TRUS Bx done 12/23/24 to review pathology Dx: elevated PSA, prostate nodule, BPH with obstruction/LUTS and family hx of prostate cancer in father. IPSS: 4, DANYELL: 3 Denies visible blood, denies dysuria, denies abdominal/flank pain History of Present Illness Tests reviewed: reviewed UA, operative note, pathology report I have reviewed the previous health record information and history for this patient from Dr. Nash. I have reviewed and verified the staff HPI to be accurate for this encounter. Review of Systems PHQ Score Initial Depression Screen Score: 0 SCORE ROS - Provider Constitutional: denies weight loss, denies hot flashes. Eyes: denies eye problems. Gastrointestinal: denies nausea, denies vomiting. Cardiovascular: denies chest pain or angina. Integumentary: no dryness Musculoskeletal: denies musculoskeletal symptoms. ENMT: denies otolaryngeal symptoms. Respiratory: no shortness of breath. Heme/Lymph: denies easy bleeding tendency, denies easy bruising tendency. Psychiatric: no confusion, no anxiety. Genitourinary: See HPI. Physical Exam Vitals & Measurements HR: 86(Peripheral) RR: 16 BP: 138/81 HT: 77 in HT: 195 cm WT: 195.109 lb WT: 88.5 kg BMI: 23.27 General Appearance: alert, no distress, well nourished, well developed male. Assessment/Plan Pt accompanied by his today. 1. Prostate cancer (C61: Malignant neoplasm of prostate) PSA 01/13/21 - 2.60 10/03/22 - 3.08 10/16/24 - 4.21 11/13/24 - 4.1 & 12.4% (after 1 month course of Bactrim per PCP) CHAUNCEY 11/24/24: 25g, hard nodule at L base. Denied prostate MRI at [facility] due to pacemaker ,was advised imaging could only be done on 1.5T vs 3T machine. TRUS/bx 12/23/24 - [place] 6 (3+3), GG1 x6/18 cores. Highest percent involvement 80%. The pathology report, which shows the presence of prostate cancer, was disclosed to the patient in detail today. Explained volume/involvement of malignancy and abnormal CHAUNCEY excludes active surveillance as an option. I discussed with the patient all the treatment options, including prostatectomy, brachytherapy, EBRT, SBRT, ADT, combination of therapy options. I went over the pros and cons of each therapy today, and a prostate cancer book was provided. Explained possible SEs of radiation and RALP. Pt has hx of Parkinson's. Educated pt on effects on bladder, particularly after tx. Also discussed referral to radiation oncology and referral to one of my partners to discuss RALP. -Referral to rad/onc -Discuss tx options w/ neurologist at upcoming appt 2. BPH with obstruction/lower urinary tract symptoms (N40.1: Benign prostatic hyperplasia with lower urinary tract symptoms) IPSS 4. UA today shows large blood, neg for infection (expected PO). Previously declined Flomax as he did not feel his sxs were bothersome enough to warrant tx. 3. Family history of prostate cancer in father (Z80.42: Family history of malignant neoplasm of prostate) Father received tx, unsure if cryotherapy vs radiation. Follow-up With When Contact Information CHARITY TAFOYA, Cole Contreras, URL [facility] [address] [place] [address] [phone] Additional Instructions: referral to rad/onc Patient Education Prostate Cancer IKeisha, personally scribed for Dr. Nash on 01/05/2025 09:35:23. . Documentation recorded by the scribKeisha jara, accurately reflects the services(s) I performed and decisions made by me. Authenticated by Dr. Nash on 01/05/2025 09:37:47. Problem List/Past Medical History Ongoing Benign prostatic hyperplasia with nocturia BMI 20.0-20.9, adult BPH with obstruction/lower urinary tract symptoms Elevated PSA Family history of prostate cancer in father Lumbar spondylosis Pacemaker Parkinson disease Paroxysmal atrial fibrillation Prostate cancer Prostate nodule Pure hypercholesterolemia Right inguinal hernia Symptomatic bradycardia Historical No qualifying data Procedure/Surgical History TRUS (transrectal ultrasound) guided cryoablation of prostate (12/23/2024), Inguinal herniorrhaphy (12/08/2020), Cardiac pacemaker (08/06/2008), History of tonsillectomy (08/06/2008). Medications aspirin 325 mg Oral EC Tab, 325 mg= 1 tab(s), Oral, Daily atorvastatin 80 mg Tab, 80 mg= 1 tab(s) carbidopa-levodopa 25 mg-100 mg Tab, 1 tab(s) DilTIAZem (Eqv-Cardizem CD) 120 mg/24 hours oral capsule, extended release, 120 mg= 1 cap(s) Allergies No Known Allergies Social History Alcohol Never., 11/24/2024 Substance Abuse Never., 11/24/2024 Tobacco Never (less than 100 in lifetime) Tobacco Use:. Never Smokeless Tobacco Use:. Household tobacco concerns: No., 01/05/2025 Family History Diabetes mellitus type II: Father. Heart disease: Father. Immunizations Vaccine Date Status Comments SARS-CoV-2 (COVID-19) mRNA-1273 vaccine - Not Given (more content not included)... Normal [facility] Comment on above: Result Comment: Elec tronically Signed By: Cole NASH MD\.br\Date and Time Signed: 01/05/25 09:37 EDT\.br\Electronically Co-Signed By: Keisha Moscoso\.br\Date and Time Co-Signed: 01/05/25 09:35 EDT No Panel InformationOrdered By: Cole Nash on 12-23-2024 Miscellaneous Pathology Test See comment [facility] Comment on above: See report. Scanned copy available in EMR. Pathology Request for Lab Co rpon 12-23-2024 Pathology Request for Lab Deb Normal [facility] Comment on above: Order Comment: PROST ATE BX Result Comment: See report. Scanned copy available in EMR. PERFORMED BY: [facility] [address] [place] [address] PATHOLOGIST PRESSING MACHINE TENDER KARLA AGUILAR M.D. Performed By: #### P ATH TO [facility] #### [facility] [address] [id number] [facility] Ambulatory Visit Summaryon 0 11-24-2024 Ambulatory Visit Summary Ambulatory Visit Summary COLE RAMOS :1960 Visit Date:11/24/2024 Ambulatory Visit Instructions Your Diagnosis Elevated PSA Prostate nodule BPH with obstruction/lower urinary tract symptoms Family history of prostate cancer in father Tests Performed MRI Pelvis (Soft Tissue) w/ + w/o contrast -- Results Pending -- Please visit your patient portal for your results or contact your primary care physician. Your Care Team Attending Physician - Cole NASH MD Primary Care Physician - TARAS WOODRUFF DO Referring Physician - TARAS WOODRUFF DO This Is Your Medications List ciprofloxacin (Cipro 500 mg Tab) Contact prescribing physician if questions or concerns aspirin (aspirin 325 mg Oral EC Tab) atorvastatin (atorvastatin 80 mg Tab) carbidopa-levodopa (carbidopa-levodopa 25 mg-100 mg Tab) diltiazem (DilTIAZem (Eqv-Cardizem CD) 120 mg/24 hours oral capsule, extended release) Procedures Performed Inguinal herniorrhaphy (12/08/2020), Cardiac pacemaker (08/06/2008), History of tonsillectomy (08/06/2008). Discharge Vitals Temperature (Temporal Artery) 37 ???C Heart Rate (Peripheral) 83 Respiratory Rate 16 Blood Pressure 110/73 Height 195 cm Height 77 in Weight 88.5 kg Weight 195.109 lb BMI 23.27 What to do next You Need to Schedule the Following Appointments Follow Up with CHARITY TAFOYA, Cole Contreras, URL When: Comments: schedule prostate MRI and bx Where: [facility] [address] , [place] [phone] Medications What How Much When Why Instructions New ciprofloxacin (Cipro 500 mg Tab) 1 Tablets By Mouth 2 times a day Elevated PSA Duration: 7 Days start 3 days prior to procedure Pickup at [facility]/pharmacy #[id number] Unchanged aspirin (aspirin 325 mg Oral EC Tab) 1 Tablets By Mouth Every day Contact prescribing physician if questions or concerns Unchanged atorvastatin (atorvastatin 80 mg Tab) 1 Tablets Contact prescribing physician if questions or concerns Unchanged carbidopa-levodopa (carbidopa-levodopa 25 mg-100 mg Tab) 1 Tablets Contact prescribing physician if questions or concerns Unchanged diltiazem (DilTIAZem (Eqv-Cardizem CD) 120 mg/ 24 hours oral capsule, extended release) 1 Capsules Contact prescribing physician if questions or concerns Pharmacy Information [facility]/pharmacy #[id number]: [address] [place], [place] [phone] Allergies No Known Allergies Problems Ongoing - Any problem that you are currently receiving treatment for. Benign prostatic hyperplasia with nocturia BMI 20.0-20.9, adult BPH with obstruction/lower urinary tract symptoms Elevated PSA Family history of prostate cancer in father Lumbar spondylosis Pacemaker Parkinson disease Paroxysmal atrial fibrillation Prostate nodule Pure hypercholesterolemia Right inguinal hernia Symptomatic bradycardia Patient Survey You may receive a survey via text or e-mail asking about your office visit. Please share your experience with us by completing your survey. We appreciate your feedback and thank you for choosing us for your care. Education Materials Magnetic Resonance Imaging Magnetic resonance imaging (MRI) is a painless test that produces detailed images of organs and tissues inside the body without using X-rays. During an MRI, strong magnets and radio waves work together to form images. MRI images may provide more details about a medical condition than X-rays, CT scans, and ultrasounds can provide. For a standard MRI, you will lie on a table that slides into a tunnel. In an open MRI, the tunnel will be open at the sides. In some cases, dye (contrast material) may be injected into your bloodstream to make the MRI images even clearer. Tell a health care provider about: ??? Any allergies you have. ??? All medicines you are taking, including vitamins, herbs, eye drops, creams, and vnqw-ftw-xcgnmvf medicines. ??? Any surgeries you have had. ??? Any medical conditions you have. ??? Any metal you may have in your body. The magnets used in an MRI can cause metal objects in your body to move. Metal can also make it difficult to get clear images. Objects that may contain metal include: ? Any joint replacement (prosthesis), such as an artificial knee or hip. ? An implanted defibrillator, pacemaker, or neurostimulator. ? A metallic ear implant (cochlear implant). ? An artificial heart valve. ? A metallic object in the eye. ? Metal splinters. ? Bullet fragments. ? A port for delivering insulin or chemotherapy. ??? Any tattoos you have. Some of the darker inks can cause problems with testing. ??? Whether you are using a control implant such as an intrauterine device (IUD). ??? Whether you are , may be , or are . ??? Any fear of cramped spaces (claustrophobia). If this is a problem, it usually can be managed with medicines given (more content not included)... Normal [facility] Ambulatory Visit Summary Ambulatory Visit Summary COLE RAMOS :1960 Visit Date:11/24/2024 Ambulatory Visit Instructions Your Diagnosis Elevated PSA Prostate nodule BPH with obstruction/lower urinary tract symptoms Family history of prostate cancer in father Tests Performed MRI Pelvis (Soft Tissue) w/ + w/o contrast -- Results Pending -- Please visit your patient portal for your results or contact your primary care physician. Your Care Team Attending Physician - Cole NASH MD Primary Care Physician - TARAS WOODRUFF DO Referring Physician - TARAS WOODRUFF DO This Is Your Medications List Contact prescribing physician if questions or concerns aspirin (aspirin 325 mg Oral EC Tab) atorvastatin (atorvastatin 80 mg Tab) carbidopa-levodopa (carbidopa-levodopa 25 mg-100 mg Tab) diltiazem (DilTIAZem (Eqv-Cardizem CD) 120 mg/24 hours oral capsule, extended release) Procedures Performed Inguinal herniorrhaphy (12/08/2020), Cardiac pacemaker (08/06/2008), History of tonsillectomy (08/06/2008). Discharge Vitals Temperature (Temporal Artery) 37 ???C Heart Rate (Peripheral) 83 Respiratory Rate 16 Blood Pressure 110/73 Height 195 cm Height 77 in Weight 88.5 kg Weight 195.109 lb BMI 23.27 What to do next You Need to Schedule the Following Appointments Follow Up with Cole NASH MD, URL When: Comments: schedule prostate MRI and bx Where: [facility] [address] , [place] [phone] Medications What How Much When Instructions Unchanged aspirin (aspirin 325 mg Oral EC Tab) 1 Tablets By Mouth Every day Contact prescribing physician if questions or concerns Unchanged atorvastatin (atorvastatin 80 mg Tab) 1 Tablets Contact prescribing physician if questions or concerns Unchanged carbidopa-levodopa (carbidopa-levodopa 25 mg-100 mg Tab) 1 Tablets Contact prescribing physician if questions or concerns Unchanged diltiazem (DilTIAZem (Eqv-Cardizem CD) 120 mg/ 24 hours oral capsule, extended release) 1 Capsules Contact prescribing physician if questions or concerns Allergies No Known Allergies Problems Ongoing - Any problem that you are currently receiving treatment for. Benign prostatic hyperplasia with nocturia BMI 20.0-20.9, adult BPH with obstruction/lower urinary tract symptoms Elevated PSA Family history of prostate cancer in father Lumbar spondylosis Pacemaker Parkinson disease Paroxysmal atrial fibrillation Prostate nodule Pure hypercholesterolemia Right inguinal hernia Symptomatic bradycardia Patient Survey You may receive a survey via text or e-mail asking about your office visit. Please share your experience with us by completing your survey. We appreciate your feedback and thank you for choosing us for your care. Education Materials Magnetic Resonance Imaging Magnetic resonance imaging (MRI) is a painless test that produces detailed images of organs and tissues inside the body without using X-rays. During an MRI, strong magnets and radio waves work together to form images. MRI images may provide more details about a medical condition than X-rays, CT scans, and ultrasounds can provide. For a standard MRI, you will lie on a table that slides into a tunnel. In an open MRI, the tunnel will be open at the sides. In some cases, dye (contrast material) may be injected into your bloodstream to make the MRI images even clearer. Tell a health care provider about: ??? Any allergies you have. ??? All medicines you are taking, including vitamins, herbs, eye drops, creams, and sckn-uze-rhvlyun medicines. ??? Any surgeries you have had. ??? Any medical conditions you have. ??? Any metal you may have in your body. The magnets used in an MRI can cause metal objects in your body to move. Metal can also make it difficult to get clear images. Objects that may contain metal include: ? Any joint replacement (prosthesis), such as an artificial knee or hip. ? An implanted defibrillator, pacemaker, or neurostimulator. ? A metallic ear implant (cochlear implant). ? An artificial heart valve. ? A metallic object in the eye. ? Metal splinters. ? Bullet fragments. ? A port for delivering insulin or chemotherapy. ??? Any tattoos you have. Some of the darker inks can cause problems with testing. ??? Whether you are using a control implant such as an intrauterine device (IUD). ??? Whether you are , may be , or are . ??? Any fear of cramped spaces (claustrophobia). If this is a problem, it usually can be managed with medicines given prior to the MRI. What are the risks? Generally, this is a safe test. However, problems may occur, such as: ??? If you have metal in your body and it is close to the area being tested, it may be hard to get high-quality images. ??? If you are , you should avoid MRI tests during (more content not included)... Normal [facility] No Panel Informationon 11-13 Free Prostate Specific Antigen 0.51 ng/mL N/A [facility] Comment on above: Uma ECLIA methodol ogy. Prostate Specific Antigen Total 4.1 ng/mL Abnormal 0.0-4.0 [facility] Comment on above: Uma ECLIA methodol ogy.According to the [employer], Serum PSAshould decrease and remain at undetectable levels afterradical prostatectomy. The AUA defines biochemicalrecurrence as an initial PSA value 0.2 ng/mL or greaterfollowed by a subsequent confirmatory PSA value 0.2 ng/mLor greater. Values obtained with different assay methods orkits cannot be used interchangeably. Results cannot beinterpreted as absolute evidence of the presence or absenceof malignant disease. Serum or plasma free prostat e specific antigen (PSA)/total PSA ratioon 11-13-2024 Free PSA/Total PSA [Mass fraction] 12.4 % . [facility] Comment on above: The table below list s the probability of prostate cancer formen with non-suspicious CHAUNCEY results and total PSA between4 and 10 ng/mL, by patient age (Mikey et al, BRIAN 1998,279:1542). % Free PSA 50-64 yr 65-75 yr 0.00-10.00% 56% 55% 10.01-15.00% 24% 35% 15.01-20.00% 17% 23% 20.01-25.00% 10% 20% >25.00% 5% 9%Please note: Mikey et al did not make specific recommendations regarding the use of percent free PSA for any other population of men.Performed at: - [facility] [id number] [place], [place] [id number] Director: Liam Galvan PhD, Phone: [phone] 36on 10-16-[address] Rae. You saw this patient in Aug 2024 and reduced cardizem down to 120mg from 240mg because his BP was 98/70 in the office. 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 BP is 138 systolic. Can he go back up to cardizem 240mg daily? Per Dr. Rae : we need to see what the event is.. have a device check to see what rhythm issue it was Spoke with patient and Aldair from [place]. We will do check in [facility] on 10/20/2024 at 10am. Normal [facility] Office Visiton 09-02-2024 Follow-up visit [id number] Jurgen Ramos 1960 M Date Provider Department Center 09/02/2024 EYAL VILLARREAL [facility] No family history on file Level of Service:49446 HI OFFICE/OUTPATIENT ESTABLISHED LOW MDM 20 MIN [facility] 36on 07-10-2024 36 Regarding labs from [...] prefers to wait and talk to Dr. Rae at his next apt on 09/02/24. He is hesitant to make a med change in Dec, as there are lots of things going on for him. Normal [facility] Orders Onlyon 07-02-2024 Orders Only [id number] Jurgen Ramos 1960 M Date Provider Department Center 07/02/2024 [id number] SANDRA [facility] No family history on file Normal [facility] CNOVon 05-29-2024 CNOV Office Visit (NRESAV ) COLE RAMOS ([id number]) 1960 M Date Time Provider Department 05/29/24 1:00 PM TREMAYNE GIBSON NRESAV During your visit today, we recorded the following information about you: Pulse Blood pressure 74/minute 141/85 Tremayne Gibson DO 05/29/2024 1:39 PM Signed [facility] - FOLLOW UP EVALUATION Taras Woodruff DO [address] [facility] [address] Dear Taras Woodruff DO: I had the pleasure of seeing [...] Examination: G (more content not included)... Normal [facility] ([id number]) 1960 M Date Time Provider Department 05/03/24 MARI ROSAS FVPRAD During your visit today, we recorded the following information about you: Mari Rosas DO 05/03/2024 12:42 PM Signed Patient called stating he was out of town and needed 10 pills of Sinemet to [facility] in [place]. Refill ordered Allergies As of Date: 05/03/2024 (No Known Allergies) Date Reviewed: 11/15/2023 Reviewed by: Ana Hart LPN - Fully Assessed Visit Diagnosis:PD (Parkinson's disease) ([facility]) [G20.A1] Order(s):carbidopa-levo dopa (SINEMET) 25-100 mg per tabletTake 1 tablet [...] Encounter Status:Closed by MARI ROSAS on 05/03/24 [facility] 37on 04-16-2024 37 Start taking lipitor 40 mg daily in the evening or prior to bed. Call the office if any muscle aches or concerns. Have follow up labs drawn in 2-3 months (June or July). Must be fasting labs. Normal [facility] Office Visiton 04-16-2024 Follow-up visit [id number] Jurgen Ramos S 1960 M Date Provider Department Center 04/16/2024 [id number] [facility] No family history on file Level of Service:32972 HI OFFICE/OUTPATIENT ESTABLISHED MOD MDM 30 MIN [facility] CBC AUTO DIFFon 10-03-2022 BASO # 0.0 103/ul Normal 0.0-0.1 [facility] Comment on above: Performed By: #### C BC #### [facility] [address] [place] [address] Dr. Rosalio Burks Basophils/100 WBC (Bld) 0.3 % Normal 0.2-2.0 [facility] Comment on above: Performed By: #### C BC #### [facility] [address] [place] [address] Dr. Rosalio Burks EO # 0.1 103/ul Normal 0.0-0.7 [facility] Comment on above: Performed By: #### C BC #### [facility] [address] [place] [address] Dr. Rosalio Burks Eosinophils/100 WBC (Bld) 1.0 % Normal 0.9-7.0 [facility] Comment on above: Performed By: #### C BC #### [facility] [address] [place] [address] Dr. Rosalio Burks Erythrocyte distribution width (RBC) [Ratio] 11.7 % Normal 11.0-15.0 [facility] Comment on above: Performed By: #### C BC #### [facility] [address] [place] [address] Dr. Rosalio Burks Hematocrit (Bld) [Volume fraction] 43.2 % Normal 42.0-54.0 [facility] Comment on above: Performed By: #### C BC #### [facility] [address] [place] [address] Dr. Rosalio Burks Hemoglobin (Bld) [Mass/Vol] 15.0 g/dL Normal 14.0-18.0 [facility] Comment on above: Performed By: #### C BC #### [facility] [address] [place] [address] Dr. Rosalio Burks IG # 0.02 10e3/ul Normal 0.00-0.03 [facility] Comment on above: Performed By: #### C BC #### [facility] [address] [place] [address] Dr. Rosalio Burks IG % 0.3 % Normal 0.0-0.5 [facility] Comment on above: Performed By: #### C BC #### [facility] [address] [place] [address] Dr. Rosalio Burks LYMPH # 1.5 103/ul Normal 1.2-3.8 [facility] Comment on above: Performed By: #### C BC #### [facility] [address] [place] [address] Dr. Rosalio Burks Lymphocytes/100 WBC (Bld) 23.3 % Normal 20.5-60.0 [facility] Comment on above: Performed By: #### C BC #### [facility] [address] [place] [address] Dr. Rosalio Burks MANUAL DIFF REQ NO Normal [facility] Comment on above: Performed By: #### C BC #### [facility] [address] [place] [address] Dr. Rosalio Burks MCH (RBC) [Entitic mass] 31.9 pg Normal 25.9-34.0 [facility] Comment on above: Performed By: #### C BC #### [facility] [address] [place] [address] Dr. Rosalio Burks MCHC (RBC) [Mass/Vol] 34.7 g/dL Normal 29.9-35.2 [facility] Comment on above: Performed By: #### C BC #### [facility] [address] [place] [address] Dr. Rosalio Burks MCV (RBC) [Entitic vol] 91.9 fL Normal 80.0-94.0 [facility] Comment on above: Performed By: #### C BC #### [facility] [address] [place] [address] Dr. Rosalio Burks MONO # 0.6 103/ul Normal 0.3-0.8 [facility] Comment on above: Performed By: #### C BC #### [facility] [address] [place] [address] Dr. Rosalio Burks Monocytes/100 WBC (Bld) 10.1 % Normal 1.7-12.0 [facility] Comment on above: Performed By: #### C BC #### [facility] [address] [address] [address] Rosalio Burks NEUT # 4.0 103/ul Normal 1.4-6.5 [facility] Comment on above: Performed By: #### C BC #### [facility] [address] [address] [address] Rosalio Burks Neutrophils/100 WBC (Bld) 65.0 % Normal 43.0-75.0 [facility] Comment on above: Performed By: #### C BC #### [facility] [address] [place] [address] Dr. Rosalio Burks Platelet mean volume (Bld) [Entitic vol] 10.3 fL Normal 9.5-13.5 [facility] Comment on above: Performed By: #### C BC #### [facility] [address] [place] [address] Dr. Rosalio Burks PLT 268 103/ul Normal 150-450 [facility] Comment on above: Performed By: #### C BC #### [facility] [address] [place] [address] Dr. Rosalio Burks RBC 4.70 106/ul Normal 4.70-6.10 [facility] Comment on above: Performed By: #### C BC #### [facility] [address] [place] [address] Dr. Rosalio Burks WBC 6.2 103/ul Normal 4.0-11.0 [facility] Comment on above: Performed By: #### C BC #### [facility] [address] [place] [address] Dr. Rosalio Burks Complete Blood Count and Dif gerald 10-03-2022 Anisocytosis Ql (Bld) [facility] Other Basophilic stippling LM Ql (Bld) [place] [facility] Other RBC morphology finding Nom (Bld) [facility] Other Complete Blood Count and Diff Plated Other Comprehensive Metabolic Pane laura 10-03-2022 Albumin [Mass/Vol] 3.973189 g/dL 3.4-5.0 g/dL [facility] Other Calcium [Mass/Vol] 9.5738767 mg/dL 8.5-10 .1 mg/dL [facility] Other CO2 [Moles/Vol] 30.10901779 mmol/L 21.0-3 2.0 mmol/L [facility] Other Creatinine [Mass/Vol] 1.10811191 mg/dL 0. 70-1.30 mg/dL [facility] Other Potassium [Moles/Vol] 4.96536611 mmol/L 3 .5-5.1 mmol/L [facility] Other Protein [Mass/Vol] 7.533522 g/dL 6.4-8.2 g/dL [facility] Other Urea nitrogen [Mass/Vol] 17.1612693 mg/dL 7.0-18.0 mg/dL [facility] Other Comprehensive Metabolic Panel see note Plated Other Comprehensive Metabolic Panel 141 mmol/L 136-145 mmol/L Pl[facility] Other Comprehensive Metabolic Panel 83 mg/dL 74-106 mg/dL [facility] Other Comprehensive Metabolic Panel >60 mL/min/1.73m2 >=60 mL/min/1.73 m2 Plated Other Comprehensive Metabolic Panel 0.3 mg/dL 0.2-1.0 mg/dL Plated Other Comprehensive Metabolic Panel 3.4 g/dL Plated Other LIPID PROFILEon 10-03-2022 CHOL-HDL RATIO NORM SEE BELOW Normal [facility] Comment on above: Result Comment: 3.3 - 4.4 LOW RISK 4.4 - 7.1 AVERAGE RISK 7.1 - 11.0 MODERATE RISK >11.0 HIGH RISK Performed By: #### C MP, LIPID #### [facility] [address] [address] [address] Rosalio Burks Cholesterol [Mass/Vol] 202 mg/dL Critically high <=200 mg/dL [facility] Comment on above: Performed By: #### C MP, LIPID #### [facility] [address] [address] [address] Rosalio Burks Cholesterol in HDL [Mass/Vol] 33 mg/dL Critically low 40-60 mg/dL [facility] Comment on above: Performed By: #### C MP, LIPID #### [facility] [address] [address] [address] Rosalio Burks Cholesterol in LDL [Mass/Vol] 106.4 mg/dL Normal [facility] Comment on above: Performed By: #### C MP, LIPID #### [facility] [address] [place] [address] Dr. Rosalio Burks Cholesterol.total/Cho lesterol in HDL [Mass ratio] 6.1 {ratio} [facility] Comment on above: Performed By: #### C MP, LIPID #### [facility] [address] [address] [address] Rosalio Burks HDL NORMAL > or = 60 mg/dl - LO W CARDIOVASCULAR RISK <40 mg/dl - HIGH CARDIOVASCULAR RISK Normal [facility] Comment on above: Performed By: #### C MP, LIPID #### [facility] [address] [place] [address] Dr. Rosalio Burks LDL CALC NORMAL SEE BELOW Normal [facility] Comment on above: Result Comment: <100 mg/dl OPTIMAL 100 - 129 mg/dl NEAR OR ABOVE OPTIMAL 130 - 159 mg/dl BORDERLINE HIGH 160 - 189 mg/dl HIGH >190 mg/dl VERY HIGH Performed By: #### C MP, LIPID #### [facility] [address] [place] [address] Dr. Rosalio Burks Triglyceride [Mass/Vol] 313 mg/dL Critically high <=150 mg/dL [facility] Comment on above: Performed By: #### C MP, LIPID #### [facility] [address] [place] [address] Dr. Rosalio Burks VLDL CALC 62.6 mg/dL Normal [facility] Comment on above: Performed By: #### C MP, LIPID #### [facility] [address] [place] [address] Dr. Rosalio Burks Lipid Panelon 10-03-2022 Lipid Panel > or = 60 mg/dl - LO W CARDIOVASCULAR RISK <40 mg/dl - HIGH CARDIOVASCULAR RISK Plated Other Lipid Panel SEE BELOW [facility] Other Lipid Panel 106.4 mg/dL Plated Other Lipid Panel 62.6 mg/dL [employer] [employer] Other PROF 14(COMP METB)on 023 Albumin [Mass/Vol] 3.9 g/dL Normal 3.4-5.0 [facility] Comment on above: Performed By: #### C MP, LIPID #### [facility] [address] [place] [address] Dr. Rosalio Burks Albumin/Globulin [Mass ratio] 1.1 {ratio} [facility] Comment on above: Performed By: #### C MP, LIPID #### [facility] [address] [place] [address] Dr. Rosalio Burks ALP [Catalytic activity/Vol] 108 U/L 46-116 U/L [facility] Comment on above: Performed By: #### C MP, LIPID #### [facility] [address] [place] [address] Dr. Rosalio Burks ALT [Catalytic activity/Vol] 15 U/L Critically low 16-63 U/L [facility] Comment on above: Performed By: #### C MP, LIPID #### [facility] [address] [place] [address] Dr. Rosalio Burks Anion gap [Moles/Vol] 10.4 mmol/L [facility] Comment on above: Performed By: #### C MP, LIPID #### [facility] [address] [place] [address] Dr. Rosalio Burks AST [Catalytic activity/Vol] 15 U/L 15-37 U/L [facility] Comment on above: Performed By: #### C MP, LIPID #### [facility] [address] [place] [address] Dr. Rosalio Burks Bilirubin [Mass/Vol] 0.3 mg/dL Normal 0.2-1.0 [facility] Comment on above: Performed By: #### C MP, LIPID #### [facility] [address] [place] [address] Dr. Rosalio Burks Calcium [Mass/Vol] 9.0 mg/dL Normal 8.5-10.1 [facility] Comment on above: Performed By: #### C MP, LIPID #### [facility] [address] [place] [address] Dr. Rosalio Burks Chloride [Moles/Vol] 104 mmol/L 98-107 mmol/L [facility] Comment on above: Performed By: #### C MP, LIPID #### [facility] [address] [place] [address] Dr. Rosalio Burks CO2 [Moles/Vol] 30.7 mmol/L Normal 21.0-32.0 [facility] Comment on above: Performed By: #### C MP, LIPID #### [facility] [address] [place] [address] Dr. Rosalio Burks Creatinine [Mass/Vol] 1.09 mg/dL Normal 0.70-1.30 [facility] Comment on above: Performed By: #### C MP, LIPID #### [facility] [address] [place] [address] Dr. Rosalio Burks EGFR-AF GUAMANIAN >60 Normal >=60 [facility] Comment on above: Performed By: #### C MP, LIPID #### [facility] [address] [place] [address] Dr. Rosalio Burks EGFR-NON AF GUAMANIAN >60 Normal >=60 [facility] Comment on above: Performed By: #### C MP, LIPID #### [facility] [address] [place] [address] Dr. Rosalio Burks Globulin (S) [Mass/Vol] 3.4 g/dL Normal [facility] Comment on above: Performed By: #### C MP, LIPID #### [facility] [address] [place] [address] Dr. Rosalio Burks Glucose [Mass/Vol] 83 mg/dL Normal 74-106 [facility] Comment on above: Performed By: #### C MP, LIPID #### [facility] [address] [place] [address] Dr. Rosalio Burks Potassium [Moles/Vol] 4.1 mmol/L Normal 3.5-5.1 [facility] Comment on above: Performed By: #### C MP, LIPID #### [facility] [address] [place] [address] Dr. Rosalio Burks Protein [Mass/Vol] 7.3 g/dL Normal 6.4-8.2 [facility] Comment on above: Performed By: #### C MP, LIPID #### [facility] [address] [place] [address] Dr. Rosalio Burks Sodium [Moles/Vol] 141 mmol/L Normal 136-145 [facility] Comment on above: Performed By: #### C MP, LIPID #### [facility] [address] [place] [address] Dr. Rosalio Burks Urea nitrogen [Mass/Vol] 17.0 mg/dL Normal 7.0-18.0 [facility] Comment on above: Performed By: #### C MP, LIPID #### [facility] [address] [place] [address] Dr. Rosalio Burks Urea nitrogen/Creatinine [Mass ratio] 15.6 mg/mg [facility] Comment on above: Performed By: #### C MP, LIPID #### [facility] [address] [place] [address] Dr. Roslaio Burks XR MODIFIED BARIUM SWALLOWon 11-01-2021 XR [...] by: MAMIE HOLDER Date: 2021-11-01 09:50 Normal [facility] Vital Signs Date Time Vital Sign Value Performing Clinician Facility 03-19-2025 11:06-0400 Body height 198.12 cm Taras Searchspace DO Work Phone: [facility] 03-19-2025 11:06-0400 Body mass index (BMI) [Ratio] 21.9 kg/m2 Taras Ball DO Work Phone: [facility] 03-19-2025 11:06-0400 Body temperature 97.3 [degF] Taras Ball DO Work Phone: [facility] 03-19-2025 11:06-0400 Body weight 85.95 kg Taras Ball DO Work Phone: [facility] 03-19-2025 11:06-0400 Diastolic blood pressure 88 mm[Hg] Taras Ball DO Work Phone: [facility] 03-19-2025 11:06-0400 Heart rate 110 /min Taras Ball DO Work Phone: [facility] 03-19-2025 11:06-0400 Respiratory rate 12 /min Taras Ball DO Work Phone: [facility] 03-19-2025 11:06-0400 Systolic blood pressure 127 mm[Hg] Taras Ball DO Work Phone: [facility] 03-13-2025 10:54-0400 Body height 198.12 cm Taras Ball DO Work Phone: [facility] 03-13-2025 10:54-0400 Body mass index (BMI) [Ratio] 22.1 kg/m2 Taras Ball DO Work Phone: [facility] 03-13-2025 10:54-0400 Body temperature 99 [degF] Taras Ball DO Work Phone: [facility] 03-13-2025 10:54-0400 Body weight 87.14 kg Taras Ball DO Work Phone: [facility] 03-13-2025 10:54-0400 Diastolic blood pressure 76 mm[Hg] Taras Ball DO Work Phone: [facility] 03-13-2025 10:54-0400 Heart rate 115 /min Taras Ball DO Work Phone: [facility] 03-13-2025 10:54-0400 Respiratory rate 18 /min Taras Ball DO Work Phone: [facility] 03-13-2025 10:54-0400 SaO2% (BldA) [Mass fraction] 98 % Taras Ball DO Work Phone: [facility] 03-13-2025 10:54-0400 Systolic blood pressure 112 mm[Hg] Taras Ball DO Work Phone: [facility] 01-09-2025 11:04-0400 Body height 195.6 cm ZAK Martínez MD Work Phone: [facility] 01-09-2025 11:04-0400 Body mass index (BMI) [Ratio] 23.14 kg/m2 ZAK Martínez MD Work Phone: [facility] 01-09-2025 11:04-0400 Body temperature 98.1 [degF] ZAK Martínez MD Work Phone: [facility] 01-09-2025 11:04-0400 Body weight 88.5 kg ZAK Martínez MD Work Phone: [facility] 01-09-2025 11:04-0400 Diastolic blood pressure 84 mm[Hg] ZAK Martínez MD Work Phone: [facility] 01-09-2025 11:04-0400 Heart rate 94 /min ZAK Martínez MD Work Phone: [facility] 01-09-2025 11:04-0400 Respiratory rate 16 /min ZAK Martínez MD Work Phone: [facility] 01-09-2025 11:04-0400 SaO2% (BldA) [Mass fraction] 97 % ZAK Martínez MD Work Phone: [facility] 01-09-2025 11:04-0400 Systolic blood pressure 120 mm[Hg] ZAK Martínez MD Work Phone: [facility] 01-08-2025 15:36-0400 Diastolic blood pressure 78 mm[Hg] Tremayne Gibson DO Work Phone: [facility] 01-08-2025 15:36-0400 Heart rate 80 /min Tremayne Gibson DO Work Phone: [facility] 01-08-2025 15:36-0400 Systolic blood pressure 110 mm[Hg] Tremayne Gibson DO Work Phone: [facility] 10-06-2024 09:25-0500 Body height 198.12 cm [facility] 10-06-2024 09:25-0500 Body mass index (BMI) [Ratio] 22.8 kg/m2 [facility] 10-06-2024 09:25-0500 Body temperature 97.4 [degF] [facility] 10-06-2024 09:25-0500 Body weight 89.58 kg [facility] 10-06-2024 09:25-0500 Diastolic blood pressure 79 mm[Hg] [facility] 10-06-2024 09:25-0500 Heart rate 94 /min [facility] 10-06-2024 09:25-0500 Respiratory rate 16 /min [facility] 10-06-2024 09:25-0500 SaO2% (BldA) [Mass fraction] 98 % [facility] 10-06-2024 09:25-0500 Systolic blood pressure 111 mm[Hg] [facility] 05-29-2024 13:02-0400 Diastolic blood pressure 85 mm[Hg] Tremayne Gostkowski DO Work Phone: [facility] 05-29-2024 13:02-0400 Heart rate 74 /min Tremayne Mickeytkowski DO Work Phone: [facility] 05-29-2024 13:02-0400 Systolic blood pressure 141 mm[Hg] Tremayne Gostkowski DO Work Phone: [facility] 11-15-2023 10:54-0400 Diastolic blood pressure 75 mm[Hg] Tremayne Gostkowski DO Work Phone: [facility] 11-15-2023 10:54-0400 Heart rate 106 /min Tremayne Arevalotclarencewski DO Work Phone: [facility] 11-15-2023 10:54-0400 SaO2% (BldA) [Mass fraction] 97 % Tremayne Arevalotkowski DO Work Phone: [facility] 11-15-2023 10:54-0400 Systolic blood pressure 141 mm[Hg] Tremayne Gostkowski DO Work Phone: [facility] 08-16-2023 10:15-0500 Body height 190.5 cm Taras Ball Other [facility] Other 08-16-2023 10:15-0500 Body mass index (BMI) [Ratio] 22.3 kg/m2 Taras Ball Other [facility] Other 08-16-2023 10:15-0500 Body weight 80.92 kg Taras Ball Other [facility] Other 08-16-2023 10:15-0500 Diastolic blood pressure 70 mm[Hg] Taras Ball Other [facility] Other 08-16-2023 10:15-0500 Respiratory rate 12 /min Taras Ball Other [facility] Other 08-16-2023 10:15-0500 Systolic blood pressure 109 mm[Hg] Taras Ball Other [facility] Other 05-10-2023 10:46-0400 Diastolic blood pressure 87 mm[Hg] Tremayne Gibson DO Work Phone: [facility] 05-10-2023 10:46-0400 Heart rate 85 /min Tremayne Gibson DO Work Phone: [facility] 05-10-2023 10:46-0400 Systolic blood pressure 125 mm[Hg] Tremayne Gibson DO Work Phone: [facility] 03-13-2023 13:30-0400 Body height 190.5 cm Taras Ball Other [facility] Other 03-13-2023 13:30-0400 Body mass index (BMI) [Ratio] 24.42 kg/m2 Taras Ball Other [facility] Other 03-13-2023 13:30-0400 Body weight 88.63 kg Taras Ball Other [facility] Other 03-13-2023 13:30-0400 Diastolic blood pressure 78 mm[Hg] Taras Ball Other [facility] Other 03-13-2023 13:30-0400 Respiratory rate 12 /min Taras Ball Other [facility] Other 03-13-2023 13:30-0400 Systolic blood pressure 111 mm[Hg] Taras Ball Other [facility] Other 10-03-2022 14:00-0500 Body height 190.5 cm Taras Ball Other [facility] Other 10-03-2022 14:00-0500 Body mass index (BMI) [Ratio] 25.32 kg/m2 Taras Ball Other [facility] Other 10-03-2022 14:00-0500 Body weight 91.9 kg Taras Ball Other [facility] Other 10-03-2022 14:00-0500 Diastolic blood pressure 82 mm[Hg] Taras Ball Other [facility] Other 10-03-2022 14:00-0500 Respiratory rate 12 /min Taras Ball Other [facility] Other 10-03-2022 14:00-0500 Systolic blood pressure 118 mm[Hg] Taras Ball Other [facility] Other 09-19-2022 12:40-0500 Body height 190.5 cm Tabby Lindo Other [facility] Other 09-19-2022 12:40-0500 Body mass index (BMI) [Ratio] 26.25 kg/m2 Tabby Lidno Other [facility] Other 09-19-2022 12:40-0500 Body temperature 98.2 [degF] Tabby Lindo Other [facility] Other 09-19-2022 12:40-0500 Body weight 95.26 kg Tabby Lindo Other [facility] Other 09-19-2022 12:40-0500 Respiratory rate 18 /min Tabby Lindo Other [facility] Other 09-19-2022 12:40-0500 SaO2% (BldA) [Mass fraction] 96 % Tabby Lindo Other [facility] [employer] Other 09-08-2022 07:53-0500 Body height 195.6 cm Tremayne Gostkowski DO Work Phone: [facility] 09-08-2022 07:53-0500 Body weight 93.58 kg Tremayne Gostkowski DO Work Phone: [facility] 09-08-2022 07:53-0500 Diastolic blood pressure 93 mm[Hg] Tremayne Gostkowski DO Work Phone: [facility] 09-08-2022 07:53-0500 Heart rate 82 /min Tremayne Gostkowski DO Work Phone: [facility] 09-08-2022 07:53-0500 SaO2% (BldA) [Mass fraction] 94 % Tremayne Gostkowski DO Work Phone: [facility] 09-08-2022 07:53-0500 Systolic blood pressure 146 mm[Hg] Tremayne Gostkowski DO Work Phone: [facility] 12-29-2021 13:46-0400 Diastolic blood pressure 82 mm[Hg] Tremayne Gostkowski DO Work Phone: [facility] 12-29-2021 13:46-0400 Heart rate 99 /min Tremayne Gostkowski DO Work Phone: [facility] 12-29-2021 13:46-0400 Systolic blood pressure 114 mm[Hg] Tremayne Gostkowski DO Work Phone: [facility] 11-10-2021 08:00-0400 Diastolic blood pressure 89 mm[Hg] Hero Cuellar PT Work Phone: [facility] 11-10-2021 08:00-0400 Heart rate 83 /min Hero Cuellar PT Work Phone: [facility] 11-10-2021 08:00-0400 Systolic blood pressure 134 mm[Hg] Hero Wayne PT Work Phone: [facility] Encounters Encounter Date Encounter Type Care Provider Facility Start: 05-18-2025 ambulatory Cole NASH Facili ty:[facility] Start: 04-23-2025 ambulatory Cole [facility]H Facili ty:[facility] [place] Start: 04-16-2025 ambulatory Cole Contreras CHARITY Guilleni ty:[id number] Start: 04-01-2025 ambulatory Adama Guillen ity:[facility] Start: 03-31-2025 End: 03-31-2025 Telephone encounter Adama Martínez MD Work Phone: Radiation Oncology Comment on above: Appointment Start: 03-30-2025 ambulatory Cole Contreras CHARITY Guilleni ty:[facility] Start: 03-19-2025 End: 03-19-2025 ambulatory Taras Woodruff DO Work Phone: [facility] Work Phone: Start: 03-19-2025 End: 03-19-2025 Patient encounter procedure Taras Woodruff -[facility] Work Phone: Start: 03-18-2025 End: 03-19-2025 ambulatory [facility] Start: 03-18-2025 End: 03-19-2025 Encounter for other preprocedural examination [facility] Start: 03-13-2025 End: 03-13-2025 ambulatory Taras Woodruff DO Work Phone: [facility] Work Phone: Start: 03-13-2025 End: 03-13-2025 Patient encounter procedure Shabana Palomino [facility] Work Phone: Start: 03-12-2025 ambulatory Cole Ben CHARITY Guilleni ty:[facility] [place] Start: 02-24-2025 End: 02-24-2025 ambulatory EYAL RAE [facility] Start: 02-20-2025 ambulatory ZHEN RIOS [facility] Start: 02-04-2025 End: 02-04-2025 Patient encounter procedure Tremayne Gibson DO -[facility] Work Phone: Start: 02-04-2025 End: 02-04-2025 ambulatory Taras Woodruff DO Work Phone: [facility] Work Phone: Start: 01-16-2025 End: 01-16-2025 Patient encounter procedure [facility] Provider [facility] Department Start: 01-14-2025 End: 01-15-2025 Telephone encounter Adama Martínez MD Work Phone: Radiation Oncology Comment on above: Future Appointment; Patient Update Start: 01-09-2025 End: 01-20-2025 Telephone encounter Adama Martínez MD Work Phone: Radiation Oncology Comment on above: Patient Update Start: 01-09-2025 End: 01-09-2025 Office outpatient new 45 minutes Adama Martínez MD Work Phone: Radiation Oncology Comment on above: Malignant neoplasm o f prostate (HCC) (Primary Dx) Start: 01-09-2025 End: 01-09-2025 ambulatory Adama MARTÍNEZ Facility:[facility] Start: 01-08-2025 End: 01-08-2025 Office outpatient visit 25 minutes Tremayne Gibson DO Work Phone: Neurology Comment on above: Parkinson's disease without dyskinesia or fluctuating manifestations (HCC) (Primary Dx); Slow transit constipation; Dysphagia, unspecified type Start: 01-08-2025 End: 01-08-2025 ambulatory TREMAYNE GIBSON Facility:[facility] Start: 01-05-2025 End: 01-05-2025 ambulatory Cole NASH Facility:[facility] Start: 01-05-2025 End: 01-05-2025 Patient encounter procedure Cole NASH [facility] Start: 12-23-2024 End: 12-23-2024 ambulatory Cole Nash Facility:[facility] Start: 12-23-2024 End: 12-23-2024 Departed Referred Cole Nash MD -[facility] Work Phone: Start: 12-23-2024 End: 12-23-2024 ambulatory Cole NASH Facility:[id number] Start: 12-11-2024 ambulatory [facility] Start: 11-24-2024 End: 11-24-2024 ambulatory Cole NASH Facility:[facility] Start: 11-17-2024 ambulatory Cole NASH Facility :[facility] Start: 11-13-2024 Non-patient / Non-visit Taras thao DO -[facility] Work Phone: Start: 10-06-2024 End: 10-06-2024 ambulatory [facility] Work Phone: Start: 10-06-2024 End: 10-06-2024 Encounter for general adult medical examination without abnormal findings [facility] Start: 10-06-2024 End: 10-06-2024 Patient encounter procedure [facility] Work Phone: Start: 09-02-2024 End: 09-03-2024 Refill Tremayne Gibson DO Work Phone: [facility] Comment on above: Refill Request Start: 08-15-2024 End: 08-15-2024 ambulatory No [facility] Start: 08-15-2024 End: 08-15-2024 Patient encounter procedure No Pcp [facility] Start: 08-04-2024 End: 08-04-2024 Refill Tremayne Gibson DO Work Phone: [facility] Comment on above: Refill Request Start: 05-29-2024 End: 05-29-2024 ambulatory TREMAYNE GIBSON Facility:[facility] Start: 05-29-2024 End: 05-29-2024 Office outpatient visit 10 minutes Tremayne Gibson DO Work Phone: Neurology Comment on above: PD (Parkinson's dise ase) (HCC) (Primary Dx); Sialorrhea; RBD (REM behavioral disorder) Start: 05-03-2024 End: 05-03-2024 Orders Only Mari Narayan DO Work Phone: Neurology Comment on above: PD (Parkinson's dise ase) (HCC) Start: 04-16-2024 End: 04-16-2024 ambulatory [facility] Start: 01-30-2024 Refill Tremayne florentino DO Work Phone: [facility] Comment on above: Refill Request Start: 11-15-2023 End: 11-15-2023 Office outpatient visit 15 minutes Tremayne Gibson DO Work Phone: Neurology Comment on above: PD (Parkinson's dise ase) ([facility]) (Primary Dx); Sialorrhea; RBD (REM behavioral disorder) Start: 08-16-2023 End: 08-16-2023 ambulatory Taras Ball Other [facility] Other Start: 08-16-2023 Office outpatient vi sit 15 minutes Taras Ball [facility] Start: 08-10-2023 End: 08-10-2023 ambulatory Taras Ball Other [facility] Other Start: 08-10-2023 Office outpatient vi sit 15 minutes Taras Ball [facility] Start: 05-10-2023 End: 05-10-2023 Office outpatient visit 15 minutes Tremayne Gibson DO Work Phone: Neurology Comment on above: PD (Parkinson's dise ase) Start: 04-06-2023 Telephone encounter Tremayne fox DO Work Phone: Neurology Comment on above: Forms Start: 03-13-2023 End: 03-13-2023 ambulatory Taras Woodruff Other [facility] Other Start: 03-13-2023 Office outpatient vi sit 25 minutes Taras Woodruff [facility] Start: 11-22-2022 ambulatory Tremayne florentino DO Work Phone: Neurology Comment on above: neuropathy analysis Start: 10-09-2022 End: 10-09-2022 ambulatory Taras Woodruff Other [facility] Other Start: 10-09-2022 Telephone encounter Taras Woodruff [place] [facility] Start: 10-08-2022 Encounter for genera l adult medical examination without abnormal findings DR TARAS WOODRUFF [facility] Start: 10-03-2022 End: 10-04-[address] TARAS WOODRUFF Facility:[facility] Start: 10-03-2022 End: 10-04-2022 Encounter for general adult medical examination without abnormal findings DR TARAS WOODRUFF Facility:[facility] Start: 10-03-2022 Periodic preventive med est patient 40-64yrs Taras Woodruff [facility] Start: 09-19-2022 End: 09-19-2022 ambulatory Tabby Lindo Other [facility] Other Start: 09-19-2022 Office outpatient ne w 30 minutes Tabby Lindo [facility] Start: 09-08-2022 End: 09-08-2022 Office outpatient visit 15 minutes Tremayne Gibson DO Work Phone: Neurology Comment on above: PD (Parkinson's dise ase) (HCC) (Primary Dx); Neuropathy, peripheral, hereditary Start: 12-29-2021 End: 12-29-2021 Patient encounter procedure Tremayne Gibson DO Work Phone: Neurology Comment on above: PD (Parkinson's dise ase) (HCC) (Primary Dx) Start: 12-01-2021 End: 12-01-2021 ambulatory Janice Leon CCC-FLEET MECHANIC [facility] Therapy Comment on above: Hypokinetic Parkinso nian dysphonia (HCC) (Primary Dx); 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); Pharyngeal dysphagia; PD (Parkinson's disease) (HCC) Start: 11-14-2021 ambulatory Tremayne florentino DO Work Phone: Neurology Comment on above: 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 Start: 11-10-2021 End: 11-10-2021 ambulatory Hero Cuellar PT Work Phone: [facility] Physical Therapy Comment on above: Abnormality of gait (Primary Dx); PD (Parkinson's disease) (HCC) Hypokinetic Parkinso nian dysphonia (HCC) (Primary Dx); 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); Pharyngeal dysphagia; PD (Parkinson's disease) (HCC) Start: 11-07-2021 Telephone encounter Tremayne fox DO Work Phone: [facility] Comment on above: Results (MBS) Start: 11-03-2021 End: 11-03-2021 ambulatory Janice Leon CCC-FLEET MECHANIC [facility] Speech Therapy Comment on above: Hypokinetic Parkinso nian dysphonia (HCC) (Primary Dx); 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 #### [facility] [address] [place] [address] Dr. Rosalio Burks Start: 12-26-2021 Adult depression scr eening assessment Tremayne Gibson DO Work Phone: Start: 12-08-2020 Inguinal herniorrhaphy Cole NASH Comment on above: Right Inguinal Herni orrhaphy using mesh Start: 08-06-2008 Cardiac pacemaker, d evice (physical object) Cole NASH Start: 08-06-2008 History of tonsillectomy Cole NASH Depression screening Benjami n Kacy Other Screening for malign ant neoplasm of prostate Taras Kacy Other Plan of Treatment Date Care Activity Detail Author Start: 2034 RSV Vaccine (1 - 1-d ose 75+ series) RSV Vaccine (1 - 1-dose 75+ series) [facility] Start: 10-03-2027 PROSTATE CANCER SCREENING DISCUSSION PROSTATE CANCER SCREENING DISCUSSION [facility] Start: 10-03-2027 Prostate specific antigen measurement Prostate Cancer Screening Discussion [facility] Start: 01-20-2027 Screening for malign ant neoplasm of colon [facility] Start: 01-13-2026 PROSTATE CANCER SCREENING DISCUSSION PROSTATE CANCER SCREENING DISCUSSION [facility] Start: 07-16-2025 End: 07-16-2025 Patient encounter procedure 07/16/2025 4:30 PM EST Office Visit Neurology [id number] [place] [address] Tremayne Gibson, DO [address] [place] [address] Return in about 6 months (around 07/10/2025). Neurology Comment on above: Return in about 6 mo nths (around 07/10/2025). Start: 05-26-2025 End: 05-26-2025 Patient encounter procedure 05/26/2025 3:30 PM EDT Office Visit Radiation Oncology [address] [place] [address] Adama Martínez MD [address] [place] [address] [place] [address] Follow up Radiation Oncology Comment on above: Follow up Start: 05-14-2025 End: 05-14-2025 Patient encounter procedure 05/14/2025 8:00 AM EDT Appointment Radiology [facility] [address] [place] [address] Comment on above: Post [facility] CT Start: 05-07-2025 End: 05-07-2025 Patient encounter procedure 05/07/2025 2:30 PM EDT Office Visit Radiation Oncology [address] [place] [address] Adama Martínez MD [address] [place] [address] Follow up Radiation Oncology Comment on above: Follow up Start: 04-16-2025 End: 04-16-2025 Patient encounter procedure 04/16/2025 8:00 AM EDT Office Visit Radiation Oncology [address] [place] [address] Adama Martínez MD [address] [place] [address] Seed Implant at [facility] Radiation Oncology Comment on above: Seed Implant at [facility] Start: 04-15-2025 End: 04-15-2025 Patient encounter procedure 04/15/2025 10:45 AM EDT Office Visit Radiation Oncology [address] [place] [address] Adama Martínez MD [address] [place] [address] Follow up / Seed implant Radiation Oncology Comment on above: Follow up / Seed imp lant Start: 04-06-2025 Influenza vaccination [facility] Start: 04-01-2025 End: 04-01-2025 Patient encounter procedure Radiology Pet CT Comment on above: 2 week follow up pos t seed implant Volume Study Start: 03-18-2025 End: 03-18-2025 Patient encounter procedure 03/18/2025 11:15 AM EDT Office Visit Radiation Oncology [address] [place] [address] Adama Martínez MD [address] [place] [address] Follow up/ Seed implant Radiation Oncology Comment on above: Follow up/ Seed impl ant Start: 03-05-2025 End: 03-05-2025 Patient encounter procedure 03/05/2025 8:00 AM EDT Office Visit Radiation Oncology [address] [place] [address] Adama Martínez MD [address] [place] [address] Seed Implant at [facility] Radiation Oncology Comment on above: Seed Implant at [facility] Start: 02-11-2025 End: 02-11-2025 Patient encounter procedure 02/11/2025 9:00 AM EDT Office Visit Radiation Oncology [address] [place] [address] Adama Martínez MD [address] [place] [address] Volume Study Radiation Oncology Comment on above: Volume Study Start: 01-08-2025 End: 01-08-2025 Patient encounter procedure 01/08/2025 3:30 PM EDT Office Visit Neurology [address] [place] [address] Tremayne Gibson, DO [address] [place] [address] PD FOLLOW UP Neurology Comment on above: PD FOLLOW UP Start: 08-06-2024 Advance Directive Discussion Advance Directive Discussion [facility] Start: 05-29-2024 End: 05-29-2024 Patient encounter procedure 05/29/2024 1:00 PM EDT Office Visit Neurology [address] [place] [address] Tremayne Gibson, DO [address] [place] [address] Return in about 6 months (around 05/16/2024). Neurology Comment on above: Return in about 6 mo nths (around 05/16/2024). Start: 2024 Advance Directive Discussion Advance Directive Discussion [facility] Start: 2024 Pneumococcal Vaccine : 65+ (1 of 1 - PCV) Pneumococcal Vaccine: 65+ (1 of 1 - PCV) [facility] Start: 04-06-2024 Covid-19 Vaccine () Covid-19 Vaccine () [facility] Start: 04-06-2024 Influenza vaccination [facility] Start: 03-24-2024 Screening for malign ant neoplasm of colon [facility] Start: 04-06-2023 Covid-19 Vaccine () Covid-19 Vaccine () [facility] Start: 04-06-2023 Influenza vaccination C [facility] Start: 12-26-2022 Adult depression screening assessment DEPRESSION SCREENING [facility] Start: 08-06-2022 DEPRESSION ASSESSMENT DEPRESSION ASS ESSMENT [facility] Start: 04-06-2022 Influenza vaccination C [facility] Start: 08-06-2021 DEPRESSION ASSESSMENT DEPRESSION ASS ESSMENT [facility] Start: 04-06-2021 Influenza vaccination INFLUENZA (#1) [facility] Start: 2019 RSV Vaccine (1 - 1-d ose 60+ series) RSV Vaccine (1 - 1-dose 60+ series) [facility] Start: 2014 PROSTATE CANCER SCREENING DISCUSSION PROSTATE CANCER SCREENING DISCUSSION [facility] Start: 2009 Pneumococcal Vaccine : 50+ (1 of 1 - PCV) Pneumococcal Vaccine: 50+ (1 of 1 - PCV) [facility] Start: 2009 SHINGRIX VACCINE (1 of 2) SHINGRIX VACCINE (1 of 2) [facility] Start: 2004 COLOGUARD (FIT-DNA) COLOGUARD (FIT-D NA) [facility] Start: 2004 Colonoscopy COLONOSCOPY [facility] Start: 2004 COLORECTAL CANCER SCREENING COLORECTAL CANCER SCREENING [facility] Start: [address] COLONOGRAPHY [facility] Start: 2004 DIABETES SCREEN DIABETES SCREEN [facility] Start: 2004 Diabetes Screening Diabetes Screenin g [facility] Start: 2004 FECAL OCCULT BLOOD FECAL OCCULT BLOO D [facility] Start: 2004 Screening for malign ant neoplasm of colon [facility] Start: 2004 SIGMOIDOSCOPY SIGMOIDOSCOPY [facility] Start: 1994 Lipid 1996 panel - S andriy or Plasma Lipid Screening [facility] Start: 1994 Lipid panel Lipid Screening [facility] Start: 1994 LIPID SCREEN LIPID SCREEN [facility] Start: 1978 Urine microalbumin profile [facility] Start: 1977 Anxiety Screening Anxiety Screening [facility] Start: 1977 Depression Screening Depression Scre ening [facility] Start: 1977 HEPATITIS C SCREENING HEPATITIS C [facility] Start: 1977 Hepatitis C screening Hepatitis C Sc [facility] Start: 1977 HIV SCREENING HIV SCREENING [facility] Start: 1977 HIV screening HIV Screening [facility] Start: 1971 Adult depression screening assessment DEPRESSION SCREENING [facility] Start: 1964 COVID-19 VACCINE (#1) COVID-19 VACCI NE (#1) [facility] Start: 1964 COVID-19 VACCINE (1) COVID-19 VACCIN E (1) [facility] Start: 1959 COVID-19 VACCINE (#1) COVID-19 VACCI NE (#1) [facility] Comprehensive metabo lic 2000 panel - Serum or Plasma [facility] Immunizations Immunization Date Immunization Notes Care Provider Fa cility NEGATED: Highlighted row has not occurred!11-26-2020 SARS-CoV-2 (COVID-19) mRNA-1273 vaccine Cole NASH [facility] [place] Payers Date Payer Category Payer Medicare [id number] 2024 Self-pay 2023 Unknown [id number] 2022 Private Health Insurance [id number] 2018 Unknown ALAINA ISSA SS PPO [id number] 2018-Present [phone] [facility] [address] [place] [address] PPO [id number] 2018 Unknown [id number] 1959 Unknown [id number] 1959 Unknown [id number] 1959 Unknown [id number] 1959 Unknown [id number] 93 1959 Unknown [id number] 27 1959 Unknown [id number] 27 1959 Unknown [id number] 27 1959 Unknown [id number] 27 1959 Unknown [id number] 27 1959 Unknown [id number] 27 1959 Unknown [id number] 27 Unknown [id number] 31 Unknown [id number] 31 Social History Date Type Detail Facility Tobacco smoking stat us NJIS Tobacco smoking consumption unknown [facility] Start: 1960 Sex Assigned At Not on file C [facility] Start: 09-06-2021 End: 04-04-2022 Exposure to SARS-CoV-2 (event) Not sure [facility] Start: 09-08-2022 End: 03-13-2025 Tobacco smoking status NJIS Never smoked tobacco [facility] Start: 09-08-2022 Tobacco use and exposure Smoke less tobacco non-user [facility] Start: 09-08-2022 End: 01-15-2023 Sex Assigned At [facility] Start: 09-08-2022 End: 01-15-2023 History of Social function [facility] Start: 06-27-2021 Adult Depression Screening Assessment 0 [facility] Start: 10-01-2021 Sexual orientation Choose not to dis close [facility] Start: 04-14-2012 End: 10-06-2024 Sex Male (finding) [facility] Start: 1960 Sex Assigned At Male F [facility] Sexual Orientation [facility] Start: 01-09-2025 Alcoholic beverage intake Ex-drinker (finding) [facility] Clinical Notes 08-06-2008 to 03-31-2025 Telephone Encounter - Deepika Merino RN - 03/31/2025 10:49 AM EDTTelephone Encounter - Deepika Merino RN - 03/31/2025 10:49 AM EDT Note Date & Type Note Facility 03-31-2025 Telephone encounter Note I called and spoke with Cole and reviewed his bowel prep instructions today for tomorrow's volume study. He denies questions at this time. He is aware to arrive at 8:45 tomorrow a.m. Deepika Merino RN [facility] 03-31-2025 Miscellaneous Notes I called and spoke with Cole and reviewed his bowel prep instructions today for tomorrow's volume study. He denies questions at this time. He is aware to arrive at 8:45 tomorrow a.m. Deepika Merino RN documented in this encounter [facility] 03-18-2025 Note Patient is here toda y for surgery clearance. Patient states he is having surgery for prostate cancer April 16. Patient state cardiac espinoza he feels well, patient states he recently had a device check in February. Patient denies chest pain, leg swelling, palpitations/racing heart, or lightheaded/dizziness. Patient complains of PATIÑO, SOB due to cold symptoms. Patient would like to talk about getting off the atorvastatin. Review of Systems Cardiovascular: Positive for dyspnea on exertion. Respiratory: Positive for shortness of breath. [facility] 03-18-2025 Note Cardiovascular Medic [facility] SUBJECTIVE Chief Complaint Patient presents with Pre-op Exam Atrial Fibrillation Cloe Ramos is a 64 y.o. male here for follow-up. PMHx: parox a.fib, PPM, aortic dilatation, HLD HPI 03/18/2025 He is pending prostate CA surgery coming up in Apr, 2025. He is currently battling a URI but prior to this he was feeling well. He is able to walk 2 blocks or a flight of stairs without feeling SOB or CP. Denies c/o orthopnea, PND, LE edema, dizziness/LH, palpitations, syncope. Problem List[1] Medical History[2] Family History[3] Social History[4] Allergies[5] OBJECTIVE Visit Vitals BP 110/83 (BP Location: Left arm, Patient Position: Sitting) Pulse 90 Ht 1.956 m (6' 5 ) Wt 85.7 kg (189 lb) SpO2 96% BMI 22.41 kg/m??? Smoking Status Never BSA 2.16 m??? Medications: Current Medications[6] Physical Exam Constitutional: Appearance: Normal appearance. He is normal weight. HENT: Head: Normocephalic and atraumatic. Right Ear: External ear normal. Left Ear: External ear normal. Eyes: Extraocular Movements: Extraocular movements intact. Pupils: Pupils are equal, round, and reactive to light. Neck: Vascular: No carotid bruit. Cardiovascular: Rate and Rhythm: Normal rate and regular rhythm. Pulses: Normal pulses. Heart sounds: Normal heart sounds. Pulmonary: Effort: Pulmonary effort is normal. Breath sounds: Normal breath sounds. Abdominal: General: Bowel sounds are normal. Palpations: Abdomen is soft. Musculoskeletal: General: Normal range of motion. Cervical back: Neck supple. Right lower leg: No edema. Left lower leg: No edema. Skin: General: Skin is warm and dry. Neurological: General: No focal deficit present. Mental Status: He is alert and oriented to person, place, and time. Psychiatric: Mood and Affect: Mood normal. Behavior: Behavior normal. Thought Content: Thought content normal. Judgment: Judgment normal. Labs: No results found for: EXTCMP , BMPR1A , CBCDIF , BNP , LASAP , RED No visits with results within 6 Month(s) from this visit. Latest known visit with results is: Ancillary Procedure on 09/02/2024 Component Date Value BSA 09/26/2024 2.16 10/16/2024 Hgb 14.9, plt 247 Cr 1.23, BUN 23, K 4.3, Na 142, eGFR 59, AST 18, ALT <6 Chol 93, LDL 39, HDL 43, trig 53 Testing/Procedures: ECHO 10/15/2024 CONCLUSION: Mild concentric left ventricle hypertrophy Normal left ventricle systolic function without wall motion abnormalities, ejection fraction 60% Normal left ventricle diastolic function Normal right ventricle size and systolic function Pacemaker leads noted within the right cardiac chambers Normal right-sided pressures Dilated ascending aorta with max diameter 4.5 cm Trivial aortic insufficiency CTA 10/03/23 Impression: Borderline aneurysm of the ascending thoracic aorta measuring 4.2 x 4.2 cm in diameter. Echo 09/18/2019 Impression: 1.) Global left ventricular systolic function is normal 2.) No regional wall motion abnormality 3.) Normal right ventirulcar systolic function. 4.) Doppler studies suggest normal right sided pressures. 5.) Moderate aortic dilation. Ascending aorta 4.2 cm. 6.) No significant valvular abnormalities. ASSESSMENT/PLAN: Diagnoses and all orders for this visit: Pre-op evaluation - ECG 12 lead unit performed Paroxysmal atrial fibrillation (CMS/HCC) Conduction disorder of the heart Cardiac pacemaker in situ Aneurysm of ascending aorta without rupture Mixed hyperlipidemia - atorvastatin (Lipitor) 80 mg tablet; Take 1 tablet (80 mg) by mouth every other day. #Paroxysmal atrial fibrillation -Infrequent short asymptomatic episodes. -[id number] - 1 -Continue ASA 325mg daily and diltiazem 180mg daily. #Cardiac pacemaker in situ: -Device check 02/24/2025: normal functioning device, 2 HVR and 2 AT episodes: 1:1 atrial driven 148-150bpm, max 48 sec -Continue q6m device checks #Vasovagal syncope: -has cls ppm -No recent episodes -Stay well hydrated #Dilatation of aorta: CTA 10/03/23: Borderline aneurysm of the ascending thoracic aorta measuring 4.2 x 4.2 cm in diameter. -ECHO 10/15/2024: AscAo dilatation at 4.5cm -Continue close monitoring. -Given small increase in size, recommend follow-up ECHO in the next 1-2 months. #Parkinsons dz: -On Carbidopa -Continue following with neurology #HTN: -Well controlled -Continue Cardizem to 120mg daily #Cardiac risk stratification -RCRI: 0 points, RCRI Score 0.5 % Risk of major cardiac event -Chest CTA 09/2023 noted no significant calcification -ECHO 10/2024: preserved LVEF -He has no evidence of heart failure on exam -EKG today shows SR, no ischemic changes -He reports METS >4. -He is at low risk for his upcoming prostate surgery. No objections for surgery from a cardiac standpoint. -Okay to hold aspirin 7 days prior and resume as soon as cleared by thomas (more content not included)... [facility] 03-13-2025 Evaluation note Diagnosis Onset Date Resolution Viral URI with cough acute Augu st 2024 10:48am Odynophagia noneactive March 19, 2025 10:30am Acute bronchitis due to other specified organisms noneactive March 19 10:30am [facility] Work Phone: [phone]) 588-662306-12-2025 Telephone encounter Note* Telephone Encounter - Jennifer Sal RN - 01/15/2025 3:33 PM EDT Call placed and LM for pt to confirm dates/times of VS and seed Implant. Requested pt CB to review and appts were mailed to pt. Jennifer Sal RN [facility]06-12-2025 Miscellaneous Notes* Telephone Encounter - Jennifer Sal RN - 01/15/2025 3:33 PM EDT Call placed and LM for pt to confirm dates/times of VS and seed Implant. Requested pt CB to review and appts were mailed to pt. Jennifer Sal RN * Telephone Encounter - Jennifer Sal RN - 01/15/2025 1:42 PM EDT Scheduling process started and LM for Simi at Dr Nash office to begin coordinating. We will contact pt once this has been scheduled. Jennifer Sal RN * Telephone Encounter - Jennifer Sal RN - 01/14/2025 11:46 AM EDT Patient called to let us know he has decided to proceed with brachytherapy for treatment. He spoke to Dr Nash office and they instructed him to call us to start the scheduling process. Dr Martínez- please advise. Are we ok to schedule this? Thank you Jennifer Sal RN [facility] Telephone encounter Note * Telephone Encounter - Jennifer Sal RN - 01/15/2025 1:42 PM EDT Scheduling process started and LM for Simi at Dr Nash office to begin coordinating. We will contact pt once this has been scheduled. Jennifer Sal RN [facility]06-11-2025 Telephone encounter Note* Telephone Encounter - Jennifer Sal RN - 01/14/2025 11:46 AM EDT Patient called to let us know he has decided to proceed with brachytherapy for treatment. He spoke to Dr Nash office and they instructed him to call us to start the scheduling process. Dr Martínez- please advise. Are we ok to schedule this? Thank you Jennifer Sal RN [facility]06-09-2025 Telephone encounter Note* Telephone Encounter - Jennifer Sal RN - 01/12/2025 1:19 PM EDT Call received from NASH at [facility] Cardiology. PT is NOT pacemaker dependent. Jennifer Sal RN [facility]06-09-2025 Miscellaneous Notes* Telephone Encounter - Jennifer Sal RN - 01/12/2025 1:19 PM EDT Call received from NASH at [facility] Cardiology. PT is NOT pacemaker dependent. Jennifer Sal RN * Telephone Encounter - Deepika Merino RN - 01/09/2025 1:43 PM EDT I called and spoke to Meg at [phone], Dr. Santos's office, asking if Cole is pacemaker dependent. She is unsure but will call back asawith an update. Deepika Merino RN documented in [facility]06-[facility] Telephone encounter Note * Telephone Encounter - Deepika Merino RN - 01/09/2025 1:43 PM EDT I called and spoke to Meg at [phone], Dr. Santos's office, asking if Cole is pacemaker dependent. She is unsure but will call back asawith an update. Deepika Merino RN [facility]06-06-2025 NoteHNO ID: [id number] Author: DEEPIKA MERINO RN Service: ? Author Type: Registered Nurse Type: Progress Notes Filed: 01/15/2025 12:19 Note Text: Pacemaker/Defibrillator?Yes -card copied Previous Cancer(s)? Basal cell -left neck-MOHS Previous Radiation? N Lupus/Scleroderma? N On body monitoring device? N AUA= 5 [facility] NoteHNO ID: [id number] Author: Adama MARTÍNEZ MD Service: ? Author Type: Physician Type: Progress Notes Filed: 01/15/2025 12:19 Note Text: Radiation Oncology - Prostate Cancer New Patient/Consult Note PATIENT NAME: Cole Ramos PATIENT REQUESTING PROVIDER: Dr. Nash DIAGNOSIS: 64 year old male with prostate adenocarcinoma, initial PSA 4.2, biopsy Piqua score 3 + 3 = 6 (grade group 1), clinical stage T2a, N0, M0, stage I [cT1a-c/T2a, N0, M0, PSA <10, GG 1] (AJCC 8th ed.), s/p biopsy. NCCN Risk Group: Low Risk Group HPI: 64 year old male with prostate adenocarcinoma who presents for an opinion regarding the role of radiation therapy in the management of the patient's disease. Final recommendations will be communicated back to the requesting physician by way of the shared medical record, or letter to requesting physician via [place] mail. The patient was diagnosed with prostate cancer and comes in today to discuss treatment options. Patient has a history of BPH and obstructive symptoms. Family history markable for his father prostate cancer. He was found to have an elevated PSA and felt to have a nodule for Dr. Nash on exam. PSA 10/16/2024 4.21 previously 3.08 on 10/03/2022. PSA repeated 11/13/2024, 4.1 with 12.4% free after course of antibiotics. Prostate biopsy on December 23, 2024 revealed: 25 cc gland. No discrete hypoechoic areas noted. Abnormal CHAUNCEY and L1 region, 4 biopsies taken this area. Pathology revealed adenocarcinoma, Adeline 6 (3+3) from L4 L3 L2 and L1 biopsy segments Total # of positive biopsy cores: 6 Total # of biopsy cores sampled: 18 Greatest % cancer in any single core: Greater than 50% Staging Studies: None Previous Treatment for Prostate Cancer: None Genomic Testing: None The patient reports the following pertinent history: Urinary frequency (D/N): 4-6/1-2 Dysuria: No Incontinence: 1- No pads Hematuria: No - Total AUA Score: 5 Bowel Movement Frequency: 1/day Bowel Movement Quality: Normal Blood per Rectum: No Last Colonoscopy: na Prior Radiation Therapy, Collagen Vascular Disease, or Inflammatory Bowel Disease: No Any implanted or external electric devices? No Currently on Anticoagulation: No History of Hip Replacement: No History of Prior TURP: No ALLERGIES No Known Allergies carbidopa-levodopa (SINEMET) 25-100 mg per tablet Take 1 tablet by mouth four times daily. atorvastatin (LIPITOR) 80 mg tablet Take 80 mg by mouth once daily. dilTIAZem CR (TIAZAC, TAZTIA XT) 120 mg 24 hr capsule Take 240 mg by mouth once daily. aspirin 325 mg tablet Take 325 mg by mouth once daily. PAST MEDICAL HISTORY Diagnosis Date Neurocardiogenic syncope Neurocardiogenic syncope PD (Parkinson's disease) ([facility]) 12/2021 PAST SURGICAL HISTORY Procedure Laterality Date ANESTH,PACEMAKER INSERTION HERNIA REPAIR HX MOHS left neck TONSILLECTOMY AND ADENOIDECTOMY FAMILY HISTORY Problem Relation Age of Onset Neuropathy Mother Prostate Cancer Father Neuropathy Maternal Grandmother Colon Cancer Maternal Grandmother Neuropathy Maternal Aunt Neuropathy Maternal Uncle Social History Tobacco Use Smoking status: Never Smokeless tobacco: Never Substance Use Topics Alcohol use: Not Currently Drug use: Not Currently REVIEW OF SYSTEMS: GENERAL: feeling well without fatigue, no recent change in weight NECK: denies swelling or pain in neck RESPIRATORY: no cough, no wheezing or shortness of breath CARDIOVASCULAR: no chest pain, no palpitations MUSCULOSKELETAL: denies any painful or swollen joints, no muscle aches SKIN: no rash NEURO: no numbness or paresthesias and no weakness of the extremities As noted in HPI PHYSICAL EXAM: VS: BP 120/84 Pulse 94 Temp 36.7 ?C (98.1 ?F) Resp 16 Ht 195.6 cm (6' 5 ) Wt 88.5 kg (195 lb 1.7 oz) SpO2 97% BMI 23.14 kg/m? KARNOFSKY PERFORMANCE STATUS: 100 General Appearance: Alert and oriented. No acute distress. HEENT: NCAT. Sclera anicteric. PERRL. EOMI. Chest: No respiratory distress. Lungs clear to auscultation bilaterally. Abdomen: Soft. Nontender. Nondistended. Musculoskeletal: No edema. Normal ROM in extremities. No bone or spine tenderness. Neuro: Speech fluent. Gait normal. No focal deficits. Rectal: Deferred RADIOLOGY/LABORATORY DATA: see HPI ASSESSMENT/PLAN: Prostate adenocarcinoma, initial PSA 4.2, biopsy Piqua score 3 + 3 = 6 (grade group 1), clinical stage T2a, N0, M0, stage I [cT1a-c/T2a, N0, M0, PSA <10, GG 1] (AJCC 8th ed.), s/p biopsy. NCCN Risk Group: Low Risk Group Patient presents with a palpable low risk adenocarcinoma prostate. Overall performance status is excellent. Options of management discussed at length with patient including active surveillance versus definitive treatment. In terms of definitive treatment strategies discussed follow-up surgical and radiation approaches. Specifically talked about radiation approaches includin (more content not included)...[facility]06-[facility] History of Present illness Narrative* Deepika Merino RN - 01/09/2025 10:58 AM EDT Pacemaker/Defibrillator?Yes -card copied Previous Cancer(s)? Basal cell -left neck-MOHS Previous Radiation? N Lupus/Scleroderma? N On body monitoring device? N AUA= 5 Deepika Merino RN * Adama Martínez MD - 01/09/2025 10:58 AM EDT Radiation Oncology - Prostate Cancer New Patient/Consult Note PATIENT NAME: Cole Ramos PATIENT REQUESTING PROVIDER: Dr. Nash DIAGNOSIS: 64 year old male with prostate adenocarcinoma, initial PSA 4.2, biopsy Adeline score 3 +3 = 6 (grade group 1), clinical stage T2a, N0, M0, stage I [cT1a-c/T2a, N0, M0, PSA <10, GG 1] (AJCC 8th ed.), s/p biopsy. NCCN Risk Group: Low Risk Group HPI: 64 year old male with prostate adenocarcinoma who presents for an opinion regarding the role of radiation therapy in the management of the patient's disease. Final recommendations will be communicated back to the requesting physician by way of the shared medical record, or letter to requestingphysician via [place] mail. The patient was diagnosed with prostate cancer and comes in today to discuss treatment options. Patient has a history of BPH and obstructive symptoms. Family history markable for his father prostate cancer. He was found to have an elevated PSA and felt to have a nodule for Dr. Nash on exam. PSA 10/16/2024 4.21 previously 3.08 on 10/03/2022. PSA repeated 11/13/2024, 4.1 with 12.4% free after course of antibiotics. Prostate biopsy on December 23, 2024 revealed: 25 cc gland. No discrete hypoechoic areas noted. AbnormalDRE and L1 region, 4 biopsies taken this area. Pathology revealed adenocarcinoma, Adeline 6 (3+3) from L4 L3 L2 and L1 biopsy segments Total # of positive biopsy cores: 6 Total # of biopsy cores sampled: 18 Greatest % cancer in any single core: Greater than 50% Staging Studies: None Previous Treatment for Prostate Cancer: None Genomic Testing: None The patient reports the following pertinent history: Urinary frequency (D/N): 4-6/1-2 Dysuria: No Incontinence: 1- No pads Hematuria: No - Total AUA Score: 5 Bowel Movement Frequency: 1/day Bowel Movement Quality: Normal Blood per Rectum: No Last Colonoscopy: na Prior Radiation Therapy, Collagen Vascular Disease, or Inflammatory Bowel Disease: No Any implanted or external electric devices? No Currently on Anticoagulation: No History of Hip Replacement: No History of Prior TURP: No ALLERGIES No Known Allergies carbidopa-levodopa (SINEMET) 25-100 mg per tablet Take 1 tablet by mouth four times daily. atorvastatin (LIPITOR) 80 mg tablet Take 80 mg by mouth once daily. dilTIAZem CR (TIAZAC, TAZTIA XT) 120 mg 24 hr capsule Take 240 mg by mouth once daily. aspirin 325 mg tablet Take 325 mg by mouth once daily. PAST MEDICAL HISTORY Diagnosis Date Neurocardiogenic syncope Neurocardiogenic syncope PD (Parkinson's disease) ([facility]) 12/2021 PAST SURGICAL HISTORY Procedure Laterality Date ANESTH,PACEMAKER INSERTION HERNIA REPAIR HX MOHS left neck TONSILLECTOMY & ADENOIDECTOMY <AGE 11 FAMILY HISTORY Problem Relation Age of Onset Neuropathy Mother Prostate Cancer Father Neuropathy Maternal Grandmother Colon Cancer Maternal Grandmother Neuropathy Maternal Aunt Neuropathy Maternal Uncle Social History Tobacco Use Smoking status: Never Smokeless tobacco: Never Substance Use Topics Alcohol use: Not Currently Drug use: Not Currently REVIEW OF SYSTEMS: GENERAL: feeling well without fatigue, no recent change in weight NECK: denies swelling or pain in neck RESPIRATORY: no cough, no wheezing or shortness of breath CARDIOVASCULAR: no chest pain, no palpitations MUSCULOSKELETAL: denies any painful or swollen joints, no muscle aches SKIN: no rash NEURO: no numbness or paresthesias and no weakness of the extremities As noted in HPI PHYSICAL EXAM: VS: BP 120/84 Pulse 94 Temp 36.7 C (98.1 F) Resp 16 Ht 195.6 cm (6' 5 ) Wt 88.5 kg (195 lb 1.7 oz) SpO2 97% BMI 23.14 kg/m KARNOFSKY PERFORMANCE STATUS: 100 General Appearance: Alert and oriented. No acute distress. HEENT: NCAT. Sclera anicteric. PERRL. EOMI. Chest: No respiratory distress. Lungs clear to auscultation bilaterally. Abdomen: Soft. Nontender. Nondistended. Musculoskeletal: No edema. Normal ROM in extremities. No bone or spine tenderness. Neuro: Speech fluent. Gait normal. No focal deficits. Rectal: Deferred RADIOLOGY/LABORATORY DATA: see HPI ASSESSMENT/PLAN: Prostate adenocarcinoma, initial PSA 4.2, biopsy Adeline score 3 + 3 = 6 (grade group 1), clinical stage T2a, N0, M0, stage I [cT1a-c/T2a, N0, M0, PSA <10, GG 1] (AJCC 8th ed.), s/p biopsy. NCCN Risk Group: Low Risk Group Patient presents with a palpable low risk adenocarcinoma prostate. Overall performance status is excellent. Options of management discussed at length with patient including active surveillance versusdefinitive treatment. In terms of definitive treatment strategies discussed follow-up surgical and radiation approaches. Specifically talked about radiation approaches including brachytherapy IMRT and SBRT. Discussed radiation safety precautions for brachytherapy. Discussed both acute and potentiallong-term effects of each treatment. Patient is not interested in watchful waiting. He does want topursue definitive treatment, does not want to pursue surgery but does want to pursue some form of radiation. He is still trying to formulate decision, I have encouraged him to call should he have other questions. Signed by: Adama Martínez MD cc: Taras Woodruff ([facility]) [address] [place] [id number] Cole Contreras Charity [address] [place] [id number] documented in this encounterD[facility] Instructions* Patient Instructions* Tremayne Gibson DO - 01/08/2025 4:10 PM EDT Medications 7A 10A 1P 4P Sinemet 25/100 1 1 1 1 a. Take Sinemet 30 minutes before meals or 60 minutes after meals. Avoid taking this medication with high protein meals. b. If nausea develops, try taking Sinemet with crackers or bread. c. If nausea still persists, please call [[phone]]. Avoid taking anti- nausea medications before speaking with us. Avoid Reglan, Compazine or Phenergan. documented in this encounterDiley [facility]06-05-[facility]25 NoteHNO ID: [id number] Author: TREMAYNE GIBSON DO Service: ? Author Type: Physician Type: Progress Notes Filed: 01/11/2025 15:46 Note Text: [facility] - FOLLOW UP EVALUATION Recording using bulletn. software for draft documentation of the visit was discussed with the patient/authorized care support representative; all questions welcomed and answered. Patient/authorized care support representative agreed to proceed Taras Woodruff DO [address] [facility] [id number] Dear Taras Woodruff DO: I had the pleasure of seeing Mr. Ramos for follow-up today. As you know he is a 64 year old male with a history of PD since 2021. Subjective Previous Plan- 05/29/2024 Visit: Continue current antiparkinsonian regimen as [...] important Interested in clinical research? Not currently Interval History: Cole is a 64-year-old male with a history of Parkinson's disease, presenting for follow-up. He is accompanied by his , who provides additional history. Cole reports a recent diagnosis of prostate cancer, which he describes as very treatable. He is scheduled to meet with his oncologist tomorrow to discuss treatment options, including surgery and radiation. He expresses anxiety about the diagnosis but feels more at ease now that he has more information. He reports significant constipation, describing bowel movements as very strenuous. He previously used Miralax but discontinued it, believing it was ineffective. He plans to resume Miralax and adhere to it consistently. He also notes frequent gas, which he did not experience before. He reports occasional drooling at night and a sensation of phlegm buildup in his throat, requiring him to clear his throat before speaking. He carries water with him to manage this issue. He recalls a previous swallow study at [facility] and participated in speech therapy for 3-4 months, which he found challenging due to work commitments. He does not endorse acting out dreams, dyskinesias, or wearing off of medication effects. He continues physical therapy 2-3 times per week and inquires about continuing it during radiation treatment. He does not report any issues with his current medication regimen, which includes Sinemet four times daily. Movement Disorders Medications Schedule - as of the start of the visit: Medications 7A 10A 1P 4P Sinemet 25/100 1 1 1 1 Questionnaires: In addition, the following areas that may be affected by abnormal involuntary movements were evaluated: Daily activities Difficulties with eatin (none) Difficulties in dressing: Yes (slight) Difficulties with hygiene activities: 0 (none) Difficulties with handwritin (none) Difficulties with doing hobbies and other activities: 0 (none) Difficulties turning in bed: Yes (slight) Difficulties getting out of bed, car or chair: 0 (none) Tremors/Gait/Balance Shaking or tremors: Yes (slight) Walking and balance problems: 0 (none) Number of falls in the Last Month: none Gait freezin (none) Autonomic/Pain Lightheadeness on standing: Yes (slight) Urinary problems: 0 (none) Constipation problems: Yes (slight) Pain and other sensations: 0 (none) Speech/Swallowing Speech problems: Yes (mild) Drooling: Yes (mild) Chewing and swallowing problems: 0 (none) Sleep/Fatigue Sleep problems: Yes (slight) Daytime sleepiness: 0 (none) Fatigue: Yes (slight) Mood/Behavior Depression: PHQ-9 Score: 0 usually representing no significant (0-4) depression. Anxiety: JUAN C-7 Total Score: 0 usually representing no significant (0-4) anxiety. Finally, the following table shows the patient's overall global physical and mental health using the PROMIS scale: PROMIS-10 Flowsheet Row Office Visit from 01/08/2025 in Neurology Office Visit from 05/29/2024 in Neurology Global Physical Health T Score 54.1 57.7 Global Mental Health T Score 53.3 62.5 0-10 Standard Pain Scale 4 5 *PROMIS-10 scoring scale: mean = 50, over 50 is above average, under 50 is below average ALLERGIES No Known Allergies Current Outpatient Medications Medication Sig carbidopa-levodopa (SINEMET) 25-100 mg per tablet Take 1 tablet by mouth four times daily. atorvastatin (LIPITOR) 80 mg tablet Take 80 mg by mouth once daily. dilTIAZem CR (TIAZAC, TAZTIA XT) 120 mg 24 hr capsule Take 240 mg by mouth once daily. aspirin 325 mg tablet Take 325 mg by mouth once daily. No current facility-administered medications for this visit. Objective Vital Signs: BP 110/78 (BP Site: Left Ar (more content not included)...[facility]06-05-2025 History of Present illness Narrative* Tremayne Gibson DO - 01/08/2025 3:48 PM EDT [facility] - FOLLOW UP EVALUATION Recording using bulletn. software for draft documentation of the visit was discussed with the patient/authorized care support representative; all questions welcomed and answered. Patient/authorized care support representative agreed to proceed Taras Woodruff DO [address] [facility] [id number] Dear Taras Woodruff DO: I had the pleasure of seeing Mr. Ramos for follow-up today. As you know he is a 64 year old male with a history of PD since 2021. Subjective Previous Plan- 05/29/2024 Visit: Continue current antiparkinsonian regimen as [...] important Interested in clinical research? Not currently Interval History: Cole is a 64-year-old male with a history of Parkinson's disease, presenting for follow-up. He is accompanied by his , who provides additional history. Cole reports a recent diagnosis of prostate cancer, which he describes as very treatable. He is scheduled to meet with his oncologist tomorrow to discuss treatment options, including surgery and radiation. He expresses anxiety about the diagnosis but feels more at ease now that he has more information. He reports significant constipation, describing bowel movements as very strenuous. He previously used Miralax but discontinued it, believing it was ineffective. He plans to resume Miralax and adhere to it consistently. He also notes frequent gas, which he did not experience before. He reports occasional drooling at night and a sensation of phlegm buildup in his throat, requiring him to clear his throat before speaking. He carries water with him to manage this issue. He recalls a previous swallow study at [facility] and participated in speech therapy for 3-4 months, which he found challenging due to work commitments. He does not endorse acting out dreams, dyskinesias, or wearing off of medication effects. He continues physical therapy 2-3 times per week and inquires about continuing it during radiation treatment.He does not report any issues with his current medication regimen, which includes Sinemet four times daily. Movement Disorders Medications Schedule - as of the start of the visit: Medications 7A 10A 1P 4P Sinemet 25/100 1 1 1 1 Questionnaires: In addition, the following areas that may be affected by abnormal involuntary movements were evaluated: Daily activities Difficulties with eatin (none) Difficulties in dressing: Yes (slight) Difficulties with hygiene activities: 0 (none) Difficulties with handwritin (none) Difficulties with doing hobbies and other activities: 0 (none) Difficulties turning in bed: Yes (slight) Difficulties getting out of bed, car or chair: 0 (none) Tremors/Gait/Balance Shaking or tremors: Yes (slight) Walking and balance problems: 0 (none) Number of falls in the Last Month: none Gait freezin (none) Autonomic/Pain Lightheadeness on standing: Yes (slight) Urinary problems: 0 (none) Constipation problems: Yes (slight) Pain and other sensations: 0 (none) Speech/Swallowing Speech problems: Yes (mild) Drooling: Yes (mild) Chewing and swallowing problems: 0 (none) Sleep/Fatigue Sleep problems: Yes (slight) Daytime sleepiness: 0 (none) Fatigue: Yes (slight) Mood/Behavior Depression: PHQ-9 Score: 0 usually representing no significant (0-4) depression. Anxiety: JUAN C-7 Total Score: 0 usually representing no significant (0-4) anxiety. Finally, the following table shows the patient's overall global physical and mental health using the PROMIS scale: PROMIS-10 Flowsheet Row Office Visit from 01/08/2025 in Neurology Office Visit from 05/29/2024 in Neurology Global Physical Health T Score 54.1 57.7 Global Mental Health T Score 53.3 62.5 0-10 Standard Pain Scale 4 5 *PROMIS-10 scoring scale: mean = 50, over 50 is above average, under 50 is below average ALLERGIES No Known Allergies Current Outpatient Medications Medication Sig carbidopa-levodopa (SINEMET) 25-100 mg per tablet Take 1 tablet by mouth four times daily. atorvastatin (LIPITOR) 80 mg tablet Take 80 mg by mouth once daily. dilTIAZem CR (TIAZAC, TAZTIA XT) 120 mg 24 hr capsule Take 240 mg by mouth once daily. aspirin 325 mg tablet Take 325 mg by mouth once daily. No current facility-administered medications for this visit. Objective Vital Signs: BP 110/78 (BP Site: Left Arm, BP Position: Sitting, BP Cuff Size: Regular Adult) Pulse 80 Orthostatic Vitals: None for this encounter No LMP for male patient. There is no height or weight on file to calculate BMI. - Neurological: - Coordination: Left vocal tremor noted. - Gait: Left-sided tremor noted. Movement Disorders Scales Performed: MDS-UPDRS Motor subscale condition of exam Medication Off/On/Naiive ON Time of UPDRS 1607 Time of Last Medication 1400 Last Medication Taken Sinemet 25/100 DBS Right [...] spontaneous smiling, butlips not parted. Rigidity Neck 1-Slight. Rigidity only detected with [...] Left 0-Normal. No problem. Arm Movements Right 1-Slight. a) the regular rhythm is broken with one or two interruptions or hesitations of the movement, b) slight slowing, c) the amplitude decrements near the end of the sequence. Arm Movements Left 1-Slight. a) the regular rhythm is broken with one or two interruptions or hesitations of the movement, b) slight slowing, c) the amplitude decrements near the end of the sequence. Toe Taps Right 0-Normal. No problem. Toe Taps Left 0-Normal. No problem. Leg Agility Right 1-Slight. a) the regular rhythm is broken with one or two interruptions or hesitations of the movement, b) slight slowing, c) the amplitude decrements near the end of the task. Leg Agility Left 1-Slight. a) the regular [...] tremor. MDS-UPDRS Motor subscale totals Left Total 9 Right Total 6 Midline Total 7 Tremor Total / 10 2 PIGD Total / 3 0 Overall Total 22 Change Better/Worse WORSE % Change Compared to Last Filed Total (!) 29.41 Assessment and Plan: Assessment Mr. Ramos is a 64 year old year old male with IPD (idiopathic Parkinson's disease) The following are the current problems noted and addressed during this visit: Parkinson's disease without dyskinesia or fluctuating manifestations (hcc) (primary encounter diagnosis) Slow transit constipation Dysphagia, unspecified type Plan 01/08/2025 Visit: 1. Parkinson's disease without dyskinesia or fluctuating manifestations (HCC) (G20.A1) - No influence of Parkinson's disease on prostate cancer treatment options (surgery or radiation). - Educated patient on dopamine level fluctuations and potential temporary worsening of symptoms dueto stress, illness, or recovery. - No evidence supporting the use of marijuana products for motor symptoms; only noted improvement in anxiety, comparable to conventional therapy. - No significant findings on examination; left-sided vocal tremor consistent with diagnosis. - Continue current medication regimen, including Sinemet four times daily. - Advised continuation of weekly physical therapy sessions. 2. Slow transit constipation (K59.01) - Recommended resumption of Miralax for management. - Magnesium citrate suggested for acute relief if necessary. - Discussed potential benefits of probiotics; no definitive evidence but not contraindicated. 3. Dysphagia, unspecified type (R13.10) - Noted occasional drooling and sensation of phlegm buildup. - Ordered swallow study to assess swallowing function. - Referral to speech therapy for further evaluation and management. Updated Movement Disorders Medication Schedule: Medications 7A 10A 1P 4P Sinemet 25/100 1 1 1 1 Return at or around: 07/10/25 Level of service : 51720 ( 30-39 min). Time spent 36 min on the day of service, which included preparing to see the patient, [id number] patient care, completing clinical documentation, obtaining and/or reviewing separately obtained history, performing a medically appropriate examination, counseling and educating the patient/family/caregiver, ordering medications, tests, or procedures, communicating results to the patient/family/caregiver, and care coordination (not separately reported). Tremayne Gibson DO Senior Staff Neurologist - [facility] documented in this encounterD[facility]06-[facility] Hospital Discharge instructions Patient Education 01/05/2025 09:18:34 Prostate Cancer Prostate Cancer The prostate is a small gland that produces fluid that makes up semen (seminal fluid). It is located below the bladder in men, in front of the rectum. Prostate cancer is the abnormal growth of cells in the prostate gland. What are the causes? The exact cause of this condition is not known. What increases the risk? You are more likely to develop this condition if: You are 65 years of age or older. You have a family history of prostate cancer. You have a family history of breast and ovarian cancer. You have genes that are passed from parent to child (inherited), such as BRCA1 and BRCA2. You have Dior syndrome. men and men of descent are diagnosed with prostate cancer at higher rates than other men. The reasons for this are not well understood and are likely due to a combination of genetic and environmental factors. What are the signs or symptoms? Symptoms of this condition include: Problems with urination. This may include: ?A weak or interrupted flow of urine. ?Trouble starting or stopping urination. ?Trouble emptying the bladder all the way. ?The need to urinate more often, especially at night. Blood in urine or semen. Persistent pain or discomfort in the lower back, lower abdomen, or hips. Trouble getting an erection. Weakness or numbness in the legs or feet. How is this diagnosed? This condition can be diagnosed with: A digital rectal exam. For this exam, a health care provider inserts a gloved finger into the rectum to feel the prostate gland. A blood test called a prostate-specific antigen (PSA) test. A procedure in which a sample of tissue is taken from the prostate and checked under a microscope (prostate biopsy). An imaging test called transrectal ultrasonography. Once the condition is diagnosed, tests will be done to determine how far the cancer has spread. This is called staging the cancer. Staging may involve imaging tests, such as a bone scan, CT scan, PETscan, or MRI. Stages of prostate cancer The stages of prostate cancer are as follows: Stage 1 (I). At this stage, the cancer is found in the prostate only. The cancer is not visible on imaging tests, and it is usually found by accident, such as during prostate surgery. Stage 2 (II). At this stage, the cancer is more advanced than it is in stage 1, but the cancer has not spread outside the prostate. Stage 3 (III). At this stage, the cancer has spread beyond the outer layer of the prostate to nearby tissues. The cancer may be found in the seminal vesicles, which are near the bladder and the prostate. Stage 4 (IV). At this stage, the cancer has spread to other parts of the body, such as the lymph nodes, bones, bladder, rectum, liver, or lungs. Prostate cancer grading Prostate cancer is also graded according to how the cancer cells look under a microscope. This is called the Adeline score and the total score can range from 6 10, indicating how likely it is that the cancer will spread (metastasize) to other parts of the body. The higher the score, the greater thelikelihood that the cancer will spread. Adeline 6 or lower: This indicates that the cancer cells look similar to normal prostate cells (well differentiated). Adeline 7: This indicates that the cancer cells look somewhat similar to normal prostate cells (moderately differentiated). Adeline 8, 9, or 10: This indicates that the cancer cells look very different than normal prostate cells (poorly differentiated). How is this treated? Treatment for this condition depends on several factors, including the stage of the cancer, your age, personal preferences, and your overall health. Talk with your health care provider about treatment options that are recommended for you. Common treatments include: Observation for early stage prostate cancer (active surveillance). This involves having exams, blood tests, and in some cases, more biopsies. For some men, this is the only treatment needed. Surgery. Types of surgeries include: ?Open surgery (radical prostatectomy). In this surgery, a larger incision is made to remove the prostate. ?A laparoscopic radical prostatectomy. This is a surgery to remove the prostate and lymph nodes through several small incisions. It is often referred to as a minimally invasive surgery. ?A robotic radical prostatectomy. This is laparoscopic surgery to remove the prostate and lymph nodes with the help of robotic arms that are controlled by the surgeon. ?Cryoablation. This is surgery to freeze and destroy cancer cells. Radiation treatment. Types of radiation treatment include: ?External beam radiation. This type aims beams of radiation from outside the body at the prostate to destroy cancerous cells. ?Brachytherapy. This type uses radioactive needles, seeds, wires, or tubes that are implanted into the prostate gland. Like external beam radiation, brachytherapy destroys cancerous cells. An advantage is that this type of radiation limits the damage to surrounding tissue and has fewer side effects. Chemotherapy. This treatment kills cancer cells or stops them from multiplying. It kills both cancer cells and normal cells. Targeted therapy. This treatment uses medicines to kill cancer cells without damaging normal cells. Hormone treatment. This treatment involves taking medicines that act on testosterone, one of the male hormones, by: ?Stopping your body from producing testosterone. ?Blocking testosterone from reaching cancer cells. Follow these instructions at home: Lifestyle Do not use any products that contain nicotine or tobacco. These products include cigarettes, chewing tobacco, and vaping devices, such as e-cigarettes. If you need help quitting, ask your health careprovider. Eat a healthy diet. To do this: ?Eat foods that are high in fiber. These include beans, whole grains, and fresh fruits and vegetables. ?Limit foods that are high in fat and sugar. These include fried or sweet foods. Treatment for prostate cancer may affect sexual function. If you have a partner, continue to have intimate moments. This may include touching, holding, hugging, and caressing your partner. Get plenty of sleep. Consider joining a support group for men who have prostate cancer. Meeting with a support group mayhelp you learn to manage the stress of having cancer. General instructions Take vuvg-[id number] and prescription medicines only as told by your health care provider. If you have to go to the hospital, notify your cancer specialist (oncologist). Keep all follow-up visits. This is important. Where to find more information [employer] [employer]: www.cancer.org [place] [employer]: www.cancer.net [employer]: www.cancer.gov Contact a health care provider if: You have new or increasing trouble urinating. You have new or increasing blood in your urine. You have new or increasing pain in your hips, back, or chest. Get help right away if: You have weakness or numbness in your legs. You cannot control urination or your bowel movements (incontinence). You have chills or a fever. Summary The prostate is a small gland that is involved in the production of semen. It is located below a man's bladder, in front of the rectum. Prostate cancer is the abnormal growth of cells in the prostate gland. Treatment for this condition depends on the stage of the cancer, your age, personal preferences, and your overall health. Talk with your health care provider about treatment options that are recommended for you. Consider joining a support group for men who have prostate cancer. Meeting with a support group mayhelp you learn to manage the stress of having cancer. This information is not intended to replace advice given to you by your health care provider. Make sure you discuss any questions you have with your health care provider. Document Revised: 10/19/2021 Document Reviewed: 10/19/2021 [employer] Patient Education 2023 [employer]. Follow Up Care 12/11/2024 15:37:32 With:CHARITY TAFOYA, Cole Contreras, URL Address: [facility] [address], [place] [address] [phone] When: Unknown Comments:referral to rad/onc [facility] 06-02-2025 NotePatient Education Oncology Prostate Cancer The prostate is a small gland that produces fluid that makes up semen (seminal fluid). It is located below the bladder in men, in front of the rectum. Prostate cancer is the abnormal growth of cells in the prostate gland. What are the causes? The exact cause of this condition is not known. What increases the risk? You are more likely to develop this condition if: ??? You are 65 years of age or older. ??? You have a family history of prostate cancer. ??? You have a family history of breast and ovarian cancer. ??? You have genes that are passed from parent to child (inherited), such as BRCA1 and BRCA2. ??? You have Dior syndrome. men and men of descent are diagnosed with prostate cancer at higher rates than other men. The reasons for this are not well understood and are likely due to a combination of genetic and environmental factors. What are the signs or symptoms? Symptoms of this condition include: ??? Problems with urination. This may include: ? A weak or interrupted flow of urine. ? Trouble starting or stopping urination. ? Trouble emptying the bladder all the way. ? The need to urinate more often, especially at night. ??? Blood in urine or semen. ??? Persistent pain or discomfort in the lower back, lower abdomen, or hips. ??? Trouble getting an erection. ??? Weakness or numbness in the legs or feet. How is this diagnosed? This condition can be diagnosed with: ??? A digital rectal exam. For this exam, a health care provider inserts a gloved finger into the rectum to feel the prostate gland. ??? A blood test called a prostate-specific antigen (PSA) test. ??? A procedure in which a sample of tissue is taken from the prostate and checked under a microscope (prostate biopsy). ??? An imaging test called transrectal ultrasonography. Once the condition is diagnosed, tests will be done to determine how far the cancer has spread. This is called staging the cancer. Staging may involve imaging tests, such as a bone scan, CT scan, PETscan, or MRI. Stages of prostate cancer The stages of prostate cancer are as follows: ??? Stage 1 (I). At this stage, the cancer is found in the prostate only. The cancer is not visibleon imaging tests, and it is usually found by accident, such as during prostate surgery. ??? Stage 2 (II). At this stage, the cancer is more advanced than it is in stage 1, but the cancer has not spread outside the prostate. ??? Stage 3 (III). At this stage, the cancer has spread beyond the outer layer of the prostate to nearby tissues. The cancer may be found in the seminal vesicles, which are near the bladder and the prostate. ??? Stage 4 (IV). At this stage, the cancer has spread to other parts of the body, such as the lymph nodes, bones, bladder, rectum, liver, or lungs. Prostate cancer grading Prostate cancer is also graded according to how the cancer cells look under a microscope. This is called the Piqua score and the total score can range from 6?10, indicating how likely it is that the cancer will spread (metastasize) to other parts of the body. The higher the score, the greater thelikelihood that the cancer will spread. ??? Piqua 6 or lower: This indicates that the cancer cells look similar to normal prostate cells (well differentiated). ??? Adeline 7: This indicates that the cancer cells look somewhat similar to normal prostate cells (moderately differentiated). ??? Piqua 8, 9, or 10: This indicates that the cancer cells look very different than normal prostate cells (poorly differentiated). How is this treated? Treatment for this condition depends on several factors, including the stage of the cancer, your age, personal preferences, and your overall health. Talk with your health care provider about treatment options that are recommended for you. Common treatments include: ??? Observation for early stage prostate cancer (active surveillance). This involves having exams, blood tests, and in some cases, more biopsies. For some men, this is the only treatment needed. ??? Surgery. Types of surgeries include: ? Open surgery (radical prostatectomy). In this surgery, a larger incision is made to remove the prostate. ? A laparoscopic radical prostatectomy. This is a surgery to remove the prostate and lymph nodes through several small incisions. It is often referred to as a minimally invasive surgery. ? A robotic radical prostatectomy. This is laparoscopic surgery to remove the prostate and lymph nodes with the help of robotic arms that are controlled by the surgeon. ? Cryoablation. This is surgery to freeze and destroy cancer cells. ??? Radiation treatment. Types of radiation treatment include: ? External beam radiation. This type aims beams of radiation from outside the body at the prostate to destroy cancerous cells. ? Brachytherapy. This type uses radioactive needles, seeds, wires, o (more content not included)...[facility]04-21-2025 NoteUrology Office/Clinic Note Chief Complaint referral for elevated PSA HPI Staff [employer] referral for elevated PSA from Dr. Woodruff. PSA 01/13/21 - 2.60 10/03/22 - 3.08 10/16/24 - 4.21 11/13/24 - 4.1 & 12.4% Denies any urinary concerns at this time. No visible blood in urine and denies any abdominal/flank pain. Nocturia x1. States that he usually has a good steady stream with urination. History of Present Illness Tests reviewed: reviewed UA, referral records, PSA I have reviewed the previous health record information and history for this patient from external providers. I have reviewed and verified the staff HPI to be accurate for this encounter. Review of Systems PHQ Score Initial Depression Screen Score: 0 SCORE ROS - Provider Constitutional: denies weight loss, denies hot flashes. Eyes: denies eye problems. Gastrointestinal: denies nausea, denies vomiting. Cardiovascular: denies chest pain or angina. Integumentary: no dryness Musculoskeletal: denies musculoskeletal symptoms. ENMT: denies otolaryngeal symptoms. Respiratory: no shortness of breath. Heme/Lymph: denies easy bleeding tendency, denies easy bruising tendency. Psychiatric: no confusion, no anxiety. Genitourinary: See HPI. Physical Exam Vitals & Measurements T: 37 ???C(Temporal Artery) HR: 83(Peripheral) RR: 16 BP: 110/73 HT: 195 cm HT: 77 in WT: 195.109 lb WT: 88.5 kg BMI: 23.27 General Appearance: alert, no distress, well nourished, well developed male. Prostate: normal prostate, estimated weight 25 gms, yes hard nodule observed at left base. Assessment/Plan Cole is a 64 yo male new pt referred by Dr. Taras Woodruff for elevated PSA. 1. Elevated PSA (R97.20: Elevated prostate specific antigen [PSA]) PSA 01/13/21 - 2.60 10/03/22 - 3.08 10/16/24 - 4.21 11/13/24 - 4.1 & 12.4% (after 1 month course of Bactrim per PCP) CHAUNCEY 10/04/[address] Woodruff: symmetrical prostate w/o nodules. CHAUNCEY today: 25g, hard nodule at L base. Discussed PSA level, most recent is elevated and has an unfavorable low percent free. Advised pt anelevated PSA could indicate prostate cancer, prostate infection, prostate inflammation without infection, prostate manipulation, or benign prostate enlargement (BPH). Asx for prostatitis. Discussed the importance of the rate of PSA rise. Recommend proceeding with a prostate biopsy to r/o prostate cancer. Risks/benefits/procedural details discussed. Advised pt other option is to obtain prostate MRI prior to bx. Discussed limitations of MRI. Pt wishes to proceed with MRI and bx. -Schedule prostate MRI. Will call pt with results. -Will schedule TRUS of Prostate with Biopsy +/- fusion. The procedural risks, benefits, details, and treatment alternatives have been discussed with the patient. These include minimal to severe bleeding, infection, blood in the semen, inability to urinate, and severe infection requiring hospitalization and IV antibiotics, among others. Full informed consent has been obtained. Will order Local anesthesia. 2. Prostate nodule (N40.2: Nodular prostate without lower urinary tract symptoms) See PE section. 3. BPH with obstruction/lower urinary tract symptoms (N40.1: Benign prostatic hyperplasia with lower urinary tract symptoms) UA today negative for blood and infection. States his stream has always been weak but does not feelit is slow. Thinks output might be low. Voids 3x/day. Denies start/stop stream. Nocturia has worsened over the past 10 yrs, 1- 2x/night. Has never tried any bladder/prostate meds. Discussed starting Flomax and possible SEs. However pt does not feel sxs are bothersome enough to warrant meds at this time. -Cont sx monitoring -Consider Flomax if sxs become more bothersome 4. Family history of prostate cancer in father (Z80.42: Family history of malignant neoplasm of prostate) Follow-up With When Contact Information Cole NASH MD, URL [facility] [address] [place] [address] [phone] Additional Instructions: schedule prostate MRI and bx Patient Education Magnetic Resonance Imaging Transrectal Ultrasound-Guided Prostate Biopsy, Care After Transrectal Ultrasound-Guided Prostate Biopsy Prostate Cancer Screening IKeisha, personally scribed for Dr. Nash on 11/24/2024 09:40:34. . Documentation recorded by the jimboibeKeisha, accurately reflects the services(s) I performed and decisions made by me. Authenticated by Dr. Nash on 11/24/2024 09:42:43. Problem List/Past Medical History Ongoing Benign prostatic hyperplasia with nocturia BMI 20.0-20.9, adult BPH with obstruction/lower urinary tract symptoms Elevated PSA Family history of prostate cancer in father Lumbar spondylosis Pacemaker Parkinson disease Paroxysmal atrial fibrillation Prostate nodule Pure hypercholesterolemia Right inguinal hernia Symptomatic bradycardia Historical No qualifying data Pro (more content not included)...[facility]: Result Comment: Electronically Signed By: Cole NASH MD\.br\Date and Time Signed: 11/24/24 09:42 EDT\.br\Electronically Co-Signed By: Keisha Moscoso\.br\Date and Time Co-Signed: 11/24/24 09:41 [id number] NotePatient Education Oncology Transrectal Ultrasound-Guided Prostate Biopsy, Care After The following information offers guidance on how to care for yourself after your procedure. Your health care provider may also give you more specific instructions. If you have problems or questions, contact your health care provider. What can I expect after the procedure? After the procedure, it is common to have: ??? Pain and discomfort near your rectum, especially while sitting. ??? Kipton-colored urine due to small amounts of blood in your urine. ??? A burning feeling while urinating. ??? Blood in your stool (feces) or bleeding from your rectum. ??? Blood in your semen. Follow these instructions at home: Medicines ??? Take gpbq-iwt-wmtqtbt and prescription medicines only as told by your health care provider. ??? If you were given a sedative during your procedure, it can affect you for several hours. Do notdrive or operate machinery until your health care provider says that it is safe. ??? If you were prescribed an antibiotic medicine, take it as told by your health care provider. Donot stop using the antibiotic even if you start to feel better. Activity ??? Return to your normal activities as told by your health care provider. Ask your health care provider what activities are safe for you. ??? Ask your health care provider when it is okay for you to resume sexual activity. ??? You may have to avoid lifting. Ask your health care provider how much you can safely lift. General instructions ??? Drink enough fluid to keep your urine pale yellow. ??? Watch your urine, stool, and semen for new or increased bleeding. ??? Keep all follow-up visits. This is important. Contact a health care provider if: ??? You have any of the following: ? Blood clots in your urine or stool. ? Blood in your urine more than 2 weeks after the procedure. ? Blood in your semen more than 2 months after the procedure. ? New or increased bleeding in your urine, stool, or semen. ? Severe pain in your abdomen. ??? Your urine smells bad or unusual. ??? You have trouble urinating. ??? Your lower abdomen feels firm. ??? You have problems getting an erection. ??? You have nausea or you vomit. Get help right away if: ??? You have a fever or chills. This could be a sign of infection. ??? You have bright red urine. ??? You have severe pain that does not get better with medicine. ??? You cannot urinate. Summary ??? After this procedure, it is common to have pain and discomfort around your rectum, especially while sitting. ??? You may have blood in your urine and stool after the procedure. ??? It is common to have blood in your semen after this procedure. ??? Get help right away if you have a fever or chills. This could be a sign of infection. This information is not intended to replace advice given to you by your health care provider. Make sure you discuss any questions you have with your health care provider. Document Revised: 01/16/2022 Document Reviewed: 01/16/2022 [employer] Patient Education ? 2023 [employer]. Transrectal Ultrasound-Guided Prostate Biopsy A transrectal ultrasound-guided prostate biopsy is a procedure to remove samples of prostate tissuefor testing. The prostate is a walnut-sized gland that is located below the bladder and in front ofthe rectum. During this procedure, a small device (probe) is lubricated and put inside the rectum. The probe sends out sound waves that make a picture of the prostate and surrounding tissues (transrectal ultrasound). The images are used to help guide the process of removing the samples. The samplesare taken to a lab to be checked for prostate cancer. This procedure is usually done to evaluate the prostate gland of men who have raised (elevated) levels of prostate-specific antigen (PSA), which can be a sign of prostate cancer or prostate enlargement related to aging (benign prostatic hyperplasia, or BPH). Tell a health care provider about: ??? Any allergies you have. ??? All medicines you are taking, including vitamins, herbs, eye drops, creams, and kwdb-ola-nohfczk medicines. ??? Any problems you or family members have had with anesthetic medicines. ??? Any bleeding problems you have. ??? Any surgeries you have had. ??? Any medical conditions you have. ??? Any prostate infections you have had. What are the risks? Generally, this is a safe procedure. However, problems may occur, including: ??? Prostate infection. ??? Bleeding from the rectum. ??? Blood in the urine. ??? Allergic reactions to medicines. ??? Damage to surrounding structures such as blood vessels, organs, or muscles. ??? Difficulty passing urine. ??? Nerve damage. This is usually temporary. What happens before the procedure? Medicines Ask your health care provider about: ??? Changing or stopping your regular medicines. This is especial (more content not included)...[facility]01-28-2025 Telephone encounter Note* Telephone Encounter - Darlene Cortes - 09/02/2024 11:03 AM EST Pt requesting refill as follows: Last FUV May 2024 with [facility] Request[facility] Pres[facility] Pending Prescriptions Disp Refills carbidopa-levodopa (SINEMET) 25-100 mg per tablet 120 tablet 11 Sig: Take 1 tablet by mouth four times daily. Upon approval, script will be sent electronically to the patient's pharmacy. Darlene Frias, Manager Facility III [facility]01-28-2025 Miscellaneous Notes* Telephone Encounter - Darlene Cortes - 09/02/2024 11:03 AM EST Pt requesting refill as follows: Last FUV May 2024 with [facility] Requested Prescriptions Pending Prescriptions Disp Refills carbidopa-levodopa (SINEMET) 25-100 mg per tablet 120 tablet 11 Sig: Take 1 tablet by mouth four times daily. Upon approval, script will be sent electronically to the patient's pharmacy. Darlene Frias, Manager Facility III documented in this encounterDiley Ridge Medical Center01-28-2025 NoteUT Electrophysiology Consult Note Reason for visit: 6 [...] He recently went to Parkinson symposium at [facility]. He is handling his meds well. Device check 04/03/23 SR with normal parameters. 42% RA pacing and 23% RV pacing. Review of Systems Musculoskeletal: Positive for arthritis, back pain and myalgias. All other systems reviewed and are negative. [facility] neurology recently made a formal diagnosis [...] Tobacco Use: Low Risk (05/29/2024) Received from [facility] Patient History Smoking Tobacco Use: Never Smokeless Tobacco Use: Never Passive Exposure: Not on file Alcohol Use: Not on file Financial Resource Strain: Not on file Food Insecurity: Not on file Transportation Needs: Not on file Physical Activity: Not on file Stress: Not on file Social Connections: Not on file Intimate Partner Violence: Unknown (09/27/2023) ID Safety & Environment Fear of Current or Ex-Partner: Not on file Emotionally Abused: Not on file Physically Abused: Not on file Sexually Abused: Not on file Physically or Sexually Abused: Not on file Depression: Not at risk (05/23/2024) Received from [facility] PHQ-2 PHQ-2 score: 0 Housing [...] by mouth in t (more content not included)...[facility]01-10-2025 NoteHNO ID: [id number] Author: ?, ?, ? Service: ? Author Type: ? Type: Progress Notes Filed: 08/15/2024 13:45 Note Text: POPULATION HEALTH NAVIGATION OUTREACH Action/JASWINDER RP Patient Outreach - Left message with [...] to schedule Navigation Signature: Dee Dee Machado Librado August 15, 2024 1:43 [facility]01-10-2025 History of Present illness Narrative* Dee Dee Torres - 08/15/2024 1:36 PM EST POPULATION HEALTH NAVIGATION OUTREACH Action/JASWINDER RP Patient Outreach - Left message with spouse for patient to call back to schedule Provider ordered Follow up in Neurology. (Please see [employer] order dated for (05/29/2024). Any agent can assist with scheduling. Reason for Outreach Care Gap/HCC or Scheduling Wellness Visits Care Gaps due: Follow-up Appointment Patient Contacted: Spoke to patient/parent/or legal guardian Patient identified by name and : Yes Care Gap/HCC/Scheduling Wellness actions taken: Patient declined: Patient will contact office directly to schedule Navigation Signature: Dee Dee Machado Librado August 15, 2024 1:43 PM documented in this encounterDiley Ridge Medical Center01-10-2025 NotePatient Outreach ([facility]) COLE RAMOS ([id number]) 1960 M Date Time Provider Department 08/15/24 NO PCP [facility] During your visit today, we recorded the following information about you: Dee Dee Torres 08/15/2024 1:45 PM Signed POPULATION HEALTH NAVIGATION OUTREACH Action/JASWINDER RP Patient Outreach - Left message with spouse for patient to call back to schedule Provider ordered Follow up in Neurology. (Please see [employer] order dated for (05/29/2024). Any agent can assist with scheduling. Reason for Outreach Care Gap/HCC or Scheduling Wellness Visits Care Gaps due: Follow-up Appointment Patient Contacted: Spoke to patient/parent/or legal guardian Patient identified by name and : Yes Care Gap/HCC/Scheduling Wellness actions taken: Patient declined: Patient will contact office directly to schedule Navigation Signature: Dee Dee Cortes Yumiko Pantoja August 15, 2024 1:43 PM Allergies As [...] to Parkinson's disease (H*10/18/2021 Encounter Status:Closed by YUMIKO PANTOJA, DEE DEE MICHAELSNE on 08/15/24[facility]12[facility] Telephone encounter Note* Telephone Encounter - Martin Piedra - 08/04/2024 11:35 AM EST LAST APPT 05/29/24 [facility] Forwarding to covering physician Requested Prescriptions Pending Prescriptions Disp Refills carbidopa-levodopa (SINEMET) 25-100 mg per tablet 120 tablet 0 Sig: Take 1 tablet by mouth four times daily. [facility]12-30-2024 Miscellaneous Notes* Telephone Encounter - Dennis Piedrakavon Ness - 08/04/2024 11:35 AM EST LAST APPT 05/29/24 [facility] Forwarding to covering physician Requested Prescriptions Pending Prescriptions Disp Refills carbidopa-levodopa (SINEMET) 25-100 mg per tablet 120 tablet 0 Sig: Take 1 tablet by mouth four times daily. documented in this encounterDiley Ridge Medical Center10-24-2024 NoteHNO ID: [id number] Author: TREMAYNE GIBSON DO Service: ? Author Type: Physician Type: Progress Notes Filed: 05/29/2024 13:39 Note Text: [facility] - FOLLOW UP EVALUATION Taras Woodruff DO [address] [facility] [address] Dear Taras Woodruff DO: I had the pleasure of seeing [...] are normal. Fund of (more content not included)...[facility]10-24-2024 History of Present illness Narrative* Tremayne Gibson DO - 05/29/2024 1:23 PM EDT [facility] - FOLLOW UP EVALUATION Taras Woodruff DO [address] [facility] [address] Dear Taras Woodruff DO: I had the pleasure of seeing [...] associated with levodopa use. The patient denies anydry mouth from levodopa use. The patient denies levodopa-associated nausea nor dyspepsia. The patient denies on-off phenomena. The amount of off time reported by the patient is minimal. Some droolingat night - not a major problem. He notes less RBD (REM behavioral disorder) problems. The patient denies any recent illness or infections. The patient denies any hospitalization since the last officevisit. The patient denies any changes to their medical history or new diagnoses. The patient denies any surgery/procedure since their last visit. The patient denies any headache, chest pain, palpitations, shortness of breath or abdominal pain. The patient denies any seizures, numbness/tingling, lightheadedness or vertiginous symptoms. The patient denies any recent suicidal ideation or attempts toharm themselves or others. The patient denies any [...] Left pathological reflexes: Rashel's absent. Coordination Right: Ipcetl-um-ihpf normal. Rapid alternating movement normal.Left: Zdgsaa-ft-iuno normal. Rapid alternating movement normal. Gait Casual [...] 1 1 1 Level of service : [id number] (10-19 min). Time spent 15 min on the day of service, which included preparing to see the patient, whgs-fz-icjf patient care, completing clinical documentation, obtaining and/or [...] Sincerely, Tremayne Gibson DO documented in this encounterDiley Ridge Medical Center09-28-2024 NoteHNO ID: [id number] Author: MARI ROSAS DO Service: ? Author Type: Physician Type: Progress Notes Filed: 05/03/2024 12:43 Note Text:[id number] History of Present illness Narrative* Mari Rosas DO - 05/03/2024 12:43 PM EDT documented in this encounterDiley Ridge Medical Center09-28-2024 Telephone encounter Note * Telephone Encounter - Mari Rosas DO - 05/03/2024 12:41 PM EDT Patient called stating he was out of town and [facility] [place] Refillordered [facility]09-28-20[facility] Miscellaneous Notes* Telephone Encounter - Mari Rosas DO - 05/03/2024 12:41 PM EDT Patient called stating he was out of town and [facility] [place]. Refillordered documented in this encounterDiley Ridge Medical Center09-11-2024 Note-Patient has no concerning symptoms. -[id number] score: 1 (age).[facility]09-11-2024 Note Device check on 03/19/24 -Found to have normal functioning. -Pacemaker life: 3 year 10 month remaining. -Atrial paced 45%, RV paced 15%.[facility] [facility] NoteOrdered Echo (TTE) in 6 months for re-evaluation of ascending thoracic aneurysm. Continue to monitor for increased dilation. -Last echo in 2019 showed ascending thoracic aorta measuring 4.2. CTA in 2023 showed no increase in size.[facility]09-11-2024 Note Lipid studies from 09/28/23 show elevated LDL at 128.4. -Started Lipitor 40 mg at today's visit for better lipid control. -Will re-draw lipids and CMP in 3 months.[facility] 04-16-2024 NotePt is here for a six month follow up. Pt denies chest pain, sob, palpatations Review of Systems Neurological: Positive for light-headedness and tremors. All other systems reviewed and are negative.[facility] 04-16-2024 NoteUTP CARDIOLOGY PROGRESS NOTE [facility] HPI: Cole Ramos is a 64 [...] Sandra PA-C [facility] Available 7-5pm via [employer] Chat Pager #: [phone] O'[facility]leness [facility]06-26-2024 Telephone encounter Note* Telephone Encounter - Martin Piedra - 01/30/2024 10:46 AM EDT Last appt 11/15/23 [facility] Patient phones requesting refills as follows: Requested Prescriptions Pending Prescriptions Disp Refills carbidopa-levodopa (SINEMET) 25-100 mg per tablet 360 tablet 1 Sig: Take 1 tablet by mouth four times daily. [facility]06-26-2024 Miscellaneous Notes* Telephone Encounter - Martin Piedra - 01/30/2024 10:46 AM EDT Last appt 11/15/23 [facility] Patient phones requesting refills as follows: Requested Prescriptions Pending Prescriptions Disp Refills carbidopa-levodopa (SINEMET) 25-100 mg per tablet 360 tablet 1 Sig: Take 1 tablet by mouth four times daily. documented in this encounterDiley Ridge Medical Center04-11-2024 Instructions* Patient Instructions* Tremayne Gibson DO - 11/15/2023 11:55 AM [...] Reglan, Compazine or Phenergan. documented in this encounterDiley Ridge Medical Center04-11-2024 History of Present illness Narrative* Tremayne Gibson DO - 11/15/2023 11:30 AM EDT [facility] - FOLLOW [...] BP Cuff Size: Regular Adult) Pulse 106 [id number]% General Medical Examination: General Description of Patient: [...] Left pathological reflexes: Rashel's absent. Coordination Right: [place]-wb-bxnw normal. Rapid alternating movement normal.Left: Pmqhdu-ib-done normal. Rapid alternating movement normal. Gait Casual [...] addressed during this visit: Pd (parkinson's disease) ([facility]) (primary encounter diagnosis) Sialorrhea Rbd (rem [...] counseling regarding preparing to see the patient, muuc-op-bcgw patient care, completing clinical documentation, obtaining and/or reviewing separately obtained history, performing a medically appropriate examination, counseling and educating the patient/family/caregiver, ordering medications, tests,or procedures, and communicating results to the patient/family/caregiver. I tried to answer all of the patient's questions and concerns during this visit. Tremayne Gibson DO Senior Staff Neurologist - [facility] documented in this encounterDiley Ridge Medical Center01-11-2024 Evaluation note* Encounter Date Diagnosis Assessment Notes Treatment Notes Treatment Clinical Notes Aug, Acute bronchitis due to other specified organisms (ICD-10 - J20.8) Instructed to use Robitussin or Mucinex for cough, saline or Flonase NS for congestion, Tylenol for pain and fever. Instructed to use Robitussin or Mucinex for cough, saline or Flonase NS for congestion, Tylenol for pain and fever. Suggested continuing antibiotics to protect from re-exacerbation Call Sunday for update Aug, Recent weight loss (ICD-10 - R63.4) States he has lost his appetite. Stressed importance of increasing calories and protein. Suggested consuming 5-6 smaller, more frequent meals. Aug, Parkinsons disease (ICD-10 - G20) Weakens his ability to clear secretions Plated Other 01-05-2024 Evaluation note* Encounter Date Diagnosis [...] fluids, may require elevation of HOB. Jose Brock since nonproductive Plated Other 10-05-2023 History of Present illness Narrative* Tremayne Gibson, DO - 05/10/2023 11:20 AM EDT [facility] - FOLLOW UP EVALUATION Tremayne Gibson [address] [address] Cole Ramos is a 63 year old [...] Left pathological reflexes: Rashel's absent. Coordination Right: Irtbgu-cm-fhkm normal. Rapid alternating movement normal.Left: Mliuyt-ua-pvmp normal. Rapid alternating movement normal. Gait Casual [...] counseling regarding preparing to see the patient, vxjz-he-sbsb patient care, completing clinical documentation, obtaining and/or reviewing separately obtained history, performing a medically appropriate examination, counseling and educating the patient/family/caregiver, ordering medications, tests,or procedures, and communicating results to the patient/family/caregiver. I tried to answer all of the patient's questions and concerns during this visit. Tremayne Gibson DO Senior Staff Neurologist - [facility] * Abhishek Cotto LPN - 05/10/2023 10:45 [...] (Sleep study not recommended) documented in this encounterDiley Ridge Medical Center09-01-2023 Miscellaneous Notes* Telephone Encounter - Drew Mora RN - 04/06/2023 2:59 PM EDT Form printed and in nursing outbox for MD signature. Drew Mora RN * Telephone Encounter - Flora Quevedo - 04/06/2023 2:05 PM EDT Received form by fax from [facility] in [place]. They are asking if the patient can participate [employer] Parkinsons fitness class. Scanned form to patient's chart for provider signature. documented in this encounterDiley Ridge Medical Center08-08-2023 Evaluation note* Encounter Date Diagnosis [...] calories. Protien supplement recommended. Monitor for now. Plated Other 03-06-2023 Evaluation note* Encounter Date Diagnosis Assessment Notes Treatment Notes Treatment Clinical Notes Oct, Parkinson's disease (ICD-10 - G20) Plated Other 02-28-2023 Evaluation note* Encounter Date Diagnosis [...] f/u Neurology, scheduled to be seen at [facility] neuropathy clinic. Fall precautions., inspect feet daily for cuts and calluses. Sep, Paroxysmal atrial fibrillation (ICD-10 - I48.0) CHADS VASC=0 Denies episodes of tachycardia. f/u Cardiology Sep, Cardiac pacemaker (I CD-10 - Z95.0) PM checks q 6mo Plated Other 02-14-2023 Evaluation note* Encounter Date Diagnosis [...] treatment plan. Patient left in stable condition. Plated Other [id number] Instructions* Patient Instructions* Tremayne Gibson DO - 09/08/2022 8:40 AM EST Medications 6A 10A 245P Sinemet 25/100 1 1 1 documented in this encounterDiley Ridge Medical Center02-03-2023 History of Present illness Narrative* Tremayne Gibson DO - 09/08/2022 8:18 AM EST [facility] - FOLLOW UP EVALUATION Tremayne Gibson [address] [facility] [address] Cole Ramos is a 62 year old [...] holds a paper. No falls are noted. 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 There is a strong [...] in Neurology OT/PT/Speech Visit from 10/13/2021 in [facility] T [...] Left pathological reflexes: Rashel's absent. Coordination Right: Cfyysk-yj-kprv normal. Rapid alternating movement normal.Left: Vkomas-tc-crtc normal. Rapid alternating movement normal. Gait Casual [...] the amplitude decrements starting after the 1st eqte-ctr-wyawd sequence. Arm Movements Right 2-Mild. a) 3 [...] addressed during this visit: Pd (parkinson's disease) ([facility]) (primary encounter diagnosis) Neuropathy, peripheral, hereditary Plan: Continue Sinemet Encouraged exercise - ~150 minutes of strenuous exercise weekly is recommended Defer until 12/26; PT at [place] Defer until 12/26; genetic counseling for testing for peripheral neuropathy Return in about 6 months (around 03/08/2023). Medical decision making was high complexity due to patient's, multiple symptoms, advancing disease,newly diagnosed Neurologic disease and counseling about shelter implications The total time spent on the patient care was 25 minutes with greater than 50% of the time spent on counseling regarding preparing to see the patient, myvx-ck-qeqy patient care, completing clinical documentation, obtaining and/or reviewing separately obtained history, performing a medically appropriate examination, counseling and educating the patient/family/caregiver, ordering medications, tests,or procedures, and communicating results to the patient/family/caregiver. I tried to answer all of the patient's questions and concerns during this visit. Tremayne Gibson DO Senior Staff Neurologist - [facility] documented in this encounterDiley Ridge Medical Center05-26-2022 Instructions* Patient Instructions* Tremayne Gibson [...] week 1/2 0 1/2 1 week 1 08/072 Continue a. Take Sinemet 30 minutes before meals or 60 minutes after meals. Avoid taking this medication with high protein meals. b. If nausea develops, try taking Sinemet with crackers or bread. c. If nausea still persists, please call. Avoid taking anti-nausea medications before speaking withus. Avoid Reglan, Compazine or Phenergan. documented in this encounterDiley Ridge Medical Center05-26-2022 History of Present illness Narrative* Tremayne Gibson DO - 12/29/2021 2:10 PM EDT [facility] - FOLLOW UP EVALUATION Tremayne Gibson [address] [address] Cole Ramos is a 61 year old male with a history of IPD (idiopathic Parkinson's disease). He is seen with his . Interval History Since Last Visit: The patient has been following through with the FLEET MECHANIC exercises on his drive to work. He notes mild depression. He has been using the treadmill. The short-term memory issues are still an issue. He notes continuing cognitive issues. The PT has been helpful - he notes more eoyus-qy-vqafnv. No falls arereported. The patient denies any [...] visit: PROMIS-10 OT/PT/Speech Visit from 10/13/2021 in [facility] T [...] Left pathological reflexes: Rashel's absent. Coordination Right: Qnavcr-cf-fvuy normal. Rapid alternating movement normal. Left: Gainpt-md-mngy normal. Rapid alternating movement normal. Gait Casual [...] the amplitude decrements starting after the 1st wqge-gms-guoop sequence. Arm Movements Right 2-Mild. a) 3 [...] addressed during this visit: Pd (parkinson's disease) ([facility]) (primary encounter diagnosis) Plan: 1. Start [...] counseling regarding preparing to see the patient, ldyd-on-wqho patient care, completing clinical documentation, obtaining and/or reviewing separately obtained history, performing a medically appropriate examination, counseling and educating the patient/family/caregiver, ordering medications, tests,or procedures and communicating results to the patient/family/caregiver. I tried to answer all of the patient's questions and concerns during this visit. Tremayne Gibson DO Senior Staff Neurologist - [facility] documented in this encounterDiley Ridge Medical Center04-28-2022 History of Present illness Narrative* Janice Leon, [facility]-FLEET MECHANIC - 12/01/2021 8:55 AM EDT Episode Visit Count: 5 Therapist That Will Oversee The Plan Of Care: Janice Leon Start of Care Date: 10/13/21 Onset Date: 10/06/21 Plan of Care Certification Date: 10/13/21 Next Certification Due Date: 12/12/21 Patient Identified by Name and Date of : Yes [facility] REHABILIT[facility] AND SPORTS THERAPY SPEECH THERAPY PROGRESS [...] upright 90 degrees for all PO;Small Bite/Sip FLEET MECHANIC Recommendations: Outpatient Speech Therapy Results and Recommendations Discussed With: Patient Planned Interventions, Frequency, and Duration: Planned Treatment Interventions: Cognitive-Linguistic Training (98782, 22800, 44831);Dysphagia Reduction Training (31811);Expressive Language Training (34703, 20847);Voice Training (50491) Current Frequency: 1x/week Duration: 4 weeks PLAN [...] reps each Laryngeal elevation/adduction exercises: 10 reps FLEET MECHANIC administered DEEP PHARYNGEAL NEUROMUSCULAR STIMULATION to [...] 70.2 Sentences: 67.9 TREATMENT: Swallow / Dysphagia (25688): Skilled Intervention: Demonstrated, instructed, modeled and provided educational handout(s) for hyolaryngeal elevation and excursion manuevers and lingual ROM, lingual base ROM, pharyngeal ROM., Provided both written and video instruction for home exercise program to facilitate follow through with proper performance. , Provided neuromuscular reeducation of swallowing reflex via DPNS Speech/Language Therapy (32487): Skilled Intervention: Educated and instructed patient on [...] per 5 word sentences Billing: Speech Treatment (47188) and Dysphagia Treatment (17264) Total time / Length of visit: 60 minutes Janice Leon CCC-FLEET MECHANIC documented in this encounterDiley Ridge Medical Center04-07-2022 Miscellaneous Notes* Addendum Note - Hero Cuellar, PT - 11/10/2021 9:37 AM EDT Addended by: HERO CUELLAR on: 11/10/2021 09:37 AM Modules accepted: Orders documented in this encounterDiley Ridge Medical Center04-07-2022 History of Present illness Narrative* Janice Leon [facility]LE[facility] MECHANIC - 11/10/2021 9:04 AM EDT Episode Visit Count: 4 Therapist That Will Oversee The Plan Of Care: Janice Leon Start of Care Date: 10/13/21 Onset Date: 10/06/21 Plan of Care Certification Date: 10/13/21 Next Certification Due Date: 12/12/21 Patient Identified by Name and Date of : Yes [facility] REHABILITATION AND SPORTS THERAPY SPEECH THERAPY PROGRESS [...] upright 90 degrees for all PO;Small Bite/Sip FLEET MECHANIC Recommendations: Outpatient Speech Therapy Results and Recommendations Discussed With: Patient Planned Interventions, Frequency, and Duration: Planned Treatment Interventions: Cognitive-Linguistic Training (94657, 17191, 23354);Expressive Language Training (25567, 79340);Voice Training (46617);Dysphagia Reduction Training (65906) Current Frequency: 1x/week Duration: 4 weeks PLAN [...] 5 reps Pharyngeal ROM exercises: 10 reps FLEET MECHANIC administered DEEP PHARYNGEAL NEUROMUSCULAR STIMULATION to CN V-XII sites with iced lemon glycerine swabs x 18. Patient demonstrated mild-strong gag response x 15, moderate to max lingual curling,moderate to max palatal lift and swallow reflexes of 2-3 seconds. TREATMENT: Swallow / Dysphagia (92944): Skilled Intervention: Demonstrated, instructed, modeled and provided [...] of swallowing reflex via DPNS. Speech/Language Therapy (57465): Skilled Intervention: Educated and instructed patient on compensatory strategies for vocal intensity, working memory, informtion processing Educated and instructed patient on memory recall strategies such as grouping. Provided verbal cues in vocal intensity. Provided and instructed patient per home exercise program. Current Home Program: facial/lingual/lingual base/laryngeal/pharyngeal exercises, working memory per 5 word sentences, memory using grouping, abstract categorical naming Billing: Speech Treatment (12060) and Dysphagia Treatment (38685) Total time / Length of visit: 75 minutes Janice Leon CCC-FLEET MECHANIC documented in this encounterDiley Ridge Medical Center04-07-2022 History of Present illness Narrative* [...] Patient to be seen for Therapeutic exercise (06125);Neuromuscular re-education (03576);Manual therapy (61371);Therapeutic activities (14870);Self-jail management (18982);Gait Training (02941);Patient/Family/Caregiver Education;Functional training PLAN FOR NEXT VISIT: Return in 6 months to reperform outcome measures SUBJECTIVE: Patient Reason for Visit: Pt had a bout of headache and feeling off balance. Plans to discuss with residential fee appraiser. Pt will be working with Dr. Galan [...] Gait belt utilized during session for safety. Self-Fci Management: 1: Reviewed PD aerobic exercise intensity [...] 60 Hero Cuellar PT documented in this encounterDiley Ridge Medical Center04-04-2022 Miscellaneous Notes* Telephone Encounter - Darlene Altagracia Tomas - 11/07/2021 1:09 PM EDT MBS results received via fax and available to view in scanned documents. documented in this encounterDiley Ridge Medical Center03-31-2022 History of Present illness Narrative* Janice Leon CCC-FLEET MECHANIC - 11/03/2021 11:11 AM EDT Episode Visit Count: 3 Therapist That Will Oversee The Plan Of Care: Janice Leon Start of Care Date: 10/13/21 Onset Date: 10/06/21 Plan of Care Certification Date: 10/13/21 Next Certification Due Date: 12/12/21 Patient Identified by Name and Date of : Yes [facility] REHABILITATION AND SPORTS THERAPY SPEECH THERAPY TREATMENT [...] 69.4 dB SPL TREATMENT: Swallow / Dysphagia (79591): Skilled Intervention: Provided education related to a [...] follow through with proper performance. Speech/Language Therapy (41813): Skilled Intervention: Educated and instructed patient on compensatory strategies for vocal intensity Provided verbal cues in vocal intensity. Provided and instructed patient per home exercise program. 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) Unspecified persistent mental disorders due to conditions classified elsewhere Pharyngeal dysphagia Dysphagia, pharyngeal phase PD (Parkinson's disease) (HCC) Paralysis agitans documented in this encounter [facility] note* Diagnosis Abnormality of gait- Primary PD (Parkinson's disease) (HCC) Paralysis agitans documented in this encounter [facility] note* 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) Unspecified persistent mental disorders due to conditions classified elsewhere Pharyngeal dysphagia Dysphagia, pharyngeal phase PD (Parkinson's disease) (HCC) Paralysis agitans documented in this encounter [facility] note* 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) Unspecified persistent mental disorders due to conditions classified elsewhere Pharyngeal dysphagia Dysphagia, pharyngeal phase PD (Parkinson's disease) (HCC) Paralysis agitans documented [facility] this encounter [facility]* Diagnosis PD (Parkinson's disease) (HCC)- Primary Paralysis agitans documented in this encounter [facility] CenterEval[facility] [place] [facility]* Diagnosis PD (Parkinson's disease) (HCC)- Primary Paralysis agitans Neuropathy, peripheral, hereditary Hereditary peripheral neuropathy documented in this encounter [facility] CenterEval[facility] [place] [facility]* Diagnosis PD (Parkinson's disease) (HCC)- Primary Paralysis agitans documented in this encounter [facility] [place] [facility]* Diagnosis PD (Parkinson's disease) Paralysis agitans documented in this encounter [facility] [place] [facility]* Diagnosis PD (Parkinson's disease) (HCC)- Primary Paralysis agitans Sialorrhea Disturbance of salivary secretion 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 documented in this encounter [facility] [place] [facility]* Diagnosis PD (Parkinson's disease) (HCC) Paralysis agitans documented in this encounter [facility] [place] [facility]* Diagnosis PD (Parkinson's disease) (HCC) Paralysis agitans documented in this encounter [facility] [place] [facility]* Diagnosis PD (Parkinson's disease) (HCC)- Primary Paralysis agitans Sialorrhea Disturbance of salivary secretion 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 documented in this encounter [facility] [place] [facility]* Diagnosis PD (Parkinson's disease) (HCC) Paralysis agitans documented in this encounter [facility] [place] [facility]* Diagnosis PD (Parkinson's disease) (HCC) Paralysis agitans documented in this encounter [facility] [place] [facility]* Diagnosis Onset Date Resolution Status Admit Date Ascending aortic aneurysm acute October 06, 2024 9:20am Chronic kidney disease acute [facility] 2024 9:20am Hypercholesterolemia acute [facility] 2024 9:20am Parkinson's disease acute October 06, 2024 9:20am Paroxysmal atrial fibrillation acute October 06, 2024 9:20am Screening PSA (prostate spec ific antigen) acute October 06, 2024 9:20am Symptomatic bradycardia acute [facility] 2024 9:20am Wellness examination noneactive [facility] 2024 9:20am [facility] Work Phone: Evaluation note* Diagnosis Parkinson's disease without dyskinesia or fluctuating manifestations (HCC)- Primary Slow transit constipation Dysphagia, unspecified type documented in this encounter [facility] [place] [facility]* Diagnosis Malignant neoplasm of prostate (HCC)- Primary Malignant neoplasm of prostate documented in this encounter [facility] CenterEvaluation noteNo assessment information availableMetrohealth [facility] Work Phone: Evaluation note* Diagnosis Onset Date Resolution Status Admit Date Sore throat noneactive March 13 10:48am [facility] Work Phone: Hospital course Narrative No data available for this section [facility] progress note No data available for this section [facility] reason for referral (narrative)No reason for referral information availableMemorial [facility] Work Phone: Reason for Referral Specialty Diagnoses / Procedures Referred By Lyubov marks Referred To Contact [facility] Diagnoses Abnormality of gait PD (Parkinson's disease) ([facility]) Procedures PT REHAB FOLLOW UP ORDER THERAPEUTIC EXERCISES RE, EA 15 MIN. Pt [facility] [address] [place] [address] 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 [place] [id number] Referral ID Status Reason Start Date Expiration Date V isits Requested Visits Authorized [id number] Closed PCP Requested Referral Auto-Generated Referral 12/01/2021 03/01/2022 1 1 Specialty Diagnoses / Procedures Referred By Lyubov marks Referred To Contact Diagnoses PD (Parkinson's disease) (HCC) Procedures PROVIDER ORDERED FOLLOW UP OFFICE/OUTPATIENT NEW HIGH MDM 60-74 MINUTES Tremayne Gibson, DO [address] [place] [address] Referral ID Status Reason Start Date Expiration Date V isits Requested Visits Authorized [id number] Authorized 07/01/2022 09/29/2022 1 1 Referral ID Status Reason Start Date Expiration Date V isits Requested Visits Authorized [id number] Authorized 03/08/2023 06/06/2023 1 1 Specialty Diagnoses / Procedures Referred By Lyubov marks Referred To Contact [facility] Diagnoses PD (Parkinson's disease) ([facility]) Procedures CONSULT TO PHYSICAL THERAPY PHYSICAL THERAPY EVALUATION HIGH COMPLEX 45 MINS Tremayne Gibson, DO [address] [place] [address] [facility] [place] [address] [place] [address] Referral ID Status Reason Start Date Expiration Date Visits Requested Visits Authorized [id number] Pending Review Auto-Generat ed Referral 12/15/2022 11/23/2023 1 1 Specialty Diagnoses / Procedures Referred By Lyubov marks Referred To Contact Diagnoses PD (Parkinson's disease) ([facility]) Sialorrhea RBD (REM behavioral disorder) Procedures PROVIDER ORDERED FOLLOW UP OFFICE/OUTPATIENT NEW HIGH MDM 60 MINUTES Tremayne Gisbon, DO [address] [place] [address] Referral ID Status Reason Start Date Expiration Date V isits Requested Visits Authorized [id number] Authorized 05/16/2024 08/14/2024 1 1 Specialty Diagnoses / Procedures Referred By Lyubov marks Referred To Contact Diagnoses PD (Parkinson's disease) ([facility]) Procedures PROVIDER ORDERED FOLLOW UP OFFICE/OUTPATIENT NEW HIGH MDM 60 MINUTES Tremayne Gibson, DO [address] [place] [address] Referral ID Status Reason Start Date Expiration Date V isits Requested Visits Authorized [id number] Authorized 11/27/2024 02/25/2025 1 1 Summary Purpose Family History No Family History Records Found Relationship Condition Age at Onset Recorded Date/T magno father Diabetes mellitus Unknown Heart disease Unknown Advance Directives No Advanced Directives Records Found Advance Directive Response Recorded Date/ Time Advance Directives No August 25, 2023 4:23pm Advance Directive Response Recorded Date/ Time Advance Directives No August 25, 2023 5:23pm Chief Complaint and Reason for Visit Chief [...] Wellness examination October 06, 2024 9:2 0am Chief Complaint Admit Date L1 L2 L3 L4 R1 R2 R3 R4/PROSTATE BX December 23, 2024 9:00am K39.01 R13.10 February 04, 2025 9:02a m Chief Complaint Admit Date L1 L2 L3 L4 R1 R2 R3 R4/PROSTATE BX December 23, 2024 9:00am K39.01 R13.10 February 04, 2025 9:02a m Chest congestion March 13, 2025 10: 48am Reason for Visit Admit Date Sore throat March 13, 2025 10: 48am Chief Complaint Admit Date L1 L2 L3 L4 R1 R2 R3 R4/PROSTATE BX December 23, 2024 9:00am K39.01 R13.10 February 04, 2025 9:02a m Chest congestion March 13, 2025 10: 48am COVID-/Sore Throat/Congestion March 10:30am Reason for Visit Admit Date Viral URI with cough March 13, 2025 10 :48am Odynophagia March 19, 2025 10 :30am Acute bronchitis due to other specified organisms March 19, 2025 10:30am Additional Source Comments Source Comments (unrecognize d section and content) In the event this informatio n is protected by the Federal Confidentiality of Alcohol and Drug Abuse Patient Records regulations: The Federal rules restrict any use of the information to criminally investigate or prosecute any alcohol or drug abuse patient.[facility] Center[facility] the event this information is protected by the Federal Confidentiality of Alcohol and Drug Abuse Patient Records regulations: The Federal rules restrict any use of the information to criminally investigate or prosecute any alcohol or drug abuse patient.[facility] CenterIn the event this information is protected by the Federal Confidentiality of Alcohol and Drug Abuse Patient Records regulations: The Federal rules restrict any use of the information to criminally investigate or prosecute any alcohol or drug abuse patient.[facility] CenterIn the event this information is protected by the Federal Confidentiality of Alcohol and Drug Abuse Patient Records regulations: The Federal rules restrict any use of the information to criminally investigate or prosecute any alcohol or drug abuse patient.[facility] CenterIn the event this information is protected by the Federal Confidentiality of Alcohol and Drug Abuse Patient Records regulations: The Federal rules restrict any use of the information to criminally investigate or prosecute any alcohol or drug abuse patient.[facility] CenterIn the event this information is protected by the Federal Confidentiality of Alcohol and Drug Abuse Patient Records regulations: The Federal rules restrict any use of the information to criminally investigate or prosecute any alcohol or drug abuse patient.[facility] CenterIn the event this information is protected by the Federal Confidentiality of Alcohol and Drug Abuse Patient Records regulations: The Federal rules restrict any use of the information to criminally investigate or prosecute any alcohol or drug abuse patient.[facility] CenterIn the event this information is protected by the Federal Confidentiality of Alcohol and Drug Abuse Patient Records regulations: The Federal rules restrict any use of the information to criminally investigate or prosecute any alcohol or drug abuse patient.[facility] the event this information is protected by the Federal Confidentiality of Alcohol and Drug Abuse Patient Records regulations: The Federal rules restrict any use of the information to criminally investigate or prosecute any alcohol or drug abuse patient.[facility] CenterIn the event this information is protected by the Federal Confidentiality of Alcohol and Drug Abuse Patient Records regulations: The Federal rules restrict any use of the information to criminally investigate or prosecute any alcohol or drug abuse patient.[facility] CenterIn the event this information is protected by the Federal Confidentiality of Alcohol and Drug Abuse Patient Records regulations: The Federal rules restrict any use of the information to criminally investigate or prosecute any alcohol or drug abuse patient.[facility] CenterIn the event this information is protected by the Federal Confidentiality of Alcohol and Drug Abuse Patient Records regulations: The Federal rules restrict any use of the information to criminally investigate or prosecute any alcohol or drug abuse patient.[facility] CenterIn the event this information is protected by the Federal Confidentiality of Alcohol and Drug Abuse Patient Records regulations: The Federal rules restrict any use of the information to criminally investigate or prosecute any alcohol or drug abuse patient.[facility] CenterIn the event this information is protected by the Federal Confidentiality of Alcohol and Drug Abuse Patient Records regulations: The Federal rules restrict any use of the information to criminally investigate or prosecute any alcohol or drug abuse patient.[facility] CenterIn the event this information is protected by the Federal Confidentiality of Alcohol and Drug Abuse Patient Records regulations: The Federal rules restrict any use of the information to criminally investigate or prosecute any alcohol or drug abuse patient.[facility] CenterIn the event this information is protected by the Federal Confidentiality of Alcohol and Drug Abuse Patient Records regulations: The Federal rules restrict any use of the information to criminally investigate or prosecute any alcohol or drug abuse patient.[facility] CenterIn the event this information is protected by the Federal Confidentiality of Alcohol and Drug Abuse Patient Records regulations: The Federal rules restrict any use of the information to criminally investigate or prosecute any alcohol or drug abuse patient.[facility] CenterIn the event this information is protected by the Federal Confidentiality of Alcohol and Drug Abuse Patient Records regulations: The Federal rules restrict any use of the information to criminally investigate or prosecute any alcohol or drug abuse patient.[facility] CenterIn the event this information is protected by the Federal Confidentiality of Alcohol and Drug Abuse Patient Records regulations: The Federal rules restrict any use of the information to criminally investigate or prosecute any alcohol or drug abuse patient.[facility] CenterIn the event this information is protected by the Federal Confidentiality of Alcohol and Drug Abuse Patient Records regulations: The Federal rules restrict any use of the information to criminally investigate or prosecute any alcohol or drug abuse patient.[facility] CenterIn the event this information is protected by the Federal Confidentiality of Alcohol and Drug Abuse Patient Records regulations: The Federal rules restrict any use of the information to criminally investigate or prosecute any alcohol or drug abuse patient.[facility] CenterIn the event this information is protected by the Federal Confidentiality of Alcohol and Drug Abuse Patient Records regulations: The Federal rules restrict any use of the information to criminally investigate or prosecute any alcohol or drug abuse patient.[facility] CenterIn the event this information is protected by the Federal Confidentiality of Alcohol and Drug Abuse Patient Records regulations: The Federal rules restrict any use of the information to criminally investigate or prosecute any alcohol or drug abuse patient.[facility] CenterIn the event this information is protected by the Federal Confidentiality of Alcohol and Drug Abuse Patient Records regulations: The Federal rules restrict any use of the information to criminally investigate or prosecute any alcohol or drug abuse patient.[facility] CenterIn the event this information is protected by the Federal Confidentiality of Alcohol and Drug Abuse Patient Records regulations: The Federal rules restrict any use of the information to criminally investigate or prosecute any alcohol or drug abuse patient.[facility] Reason for Visit (unrecogniz ed section and content) Reason Comments Speech Progress Note Specialty Diagnoses / Procedures Referred By Lyubov marks Referred To Contact SPEECH THERAPY Diagnoses PD (Parkinson's disease) (HCC) Procedures CONSULT TO SPEECH THERAPY OFFICE/OUTPATIENT [facility] MDM 60-74 MINUTES EVAL SPEECH SOUND PRODUCT LANGUAGE COMPREHENSION TX SPEECH LANG VOICE COMMJ &/AUDITORY PROC IND Tremayne Gibson DO [address] [place] [address] Speech [facility] [address] [place] [address] Referral ID Status Reason Start Date Expiration Date Visits Requested Visits Authorized [id number] Authorized Auto-Generat ed Referral 10/07/2021 08/05/2022 30 30 Reason Comments Speech Therapy Reason Comments Physical Therapy PT Progress Note Specialty Diagnoses / Procedures Referred By Lyubov marks Referred To Contact PHYSICAL THERAPY Diagnoses PD (Parkinson's disease) (HCC) Procedures CONSULT TO PHYSICAL THERAPY PHYSICAL THERAPY EVALUATION HIGH COMPLEX 45 MINS THERAPEUTIC EXERCISES RE, EA 15 MIN. Tremayne Gibson DO [address] [place] [address] [facility] [address] [place] [address] Referral ID Status Reason Start Date Expiration Date Visits Requested Visits Authorized [id number] Authorized Auto-Generat ed Referral 10/07/2021 08/05/2022 30 30 Reason Comments Speech Progress Note Specialty Diagnoses / Procedures Referred By Lyubov marks Referred To Contact SPEECH THERAPY Diagnoses PD (Parkinson's disease) ([facility]) Procedures CONSULT TO SPEECH THERAPY OFFICE/OUTPATIENT NEW [facility] 60-74 MINUTES EVAL SPEECH SOUND PRODUCT LANGUAGE COMPREHENSION TX SPEECH LANG VOICE COMMJ &/AUDITORY PROC IND Tremayne Gibson, DO [address] [place] [address] [facility] [address] [place] [address] Reason Comments Results MBS Reason Comments Established Patient Tremor Tremors little worse Numbness in both feet mostly left Specialty Diagnoses / Procedures Referred By Lyubov marks Referred To Contact Diagnoses PD (Parkinson's disease) ([facility]) Procedures PROVIDER ORDERED FOLLOW UP OFFICE/OUTPATIENT NEW [facility] 60-74 MINUTES Tremayne Gibson, DO [address] [place] [address] Referral ID Status Reason Start Date Expiration Date Visits Re quested Visits Authorized [id number] Closed 07/01/2022 09/29/2022 1 1 Reason Comments Forms Reason Comments Follow Up Specialty Diagnoses / Procedures Referred By Lyubov marks Referred To Contact Diagnoses PD (Parkinson's disease) Procedures PROVIDER ORDERED FOLLOW UP OFFICE/OUTPATIENT NEW [facility] 60-74 MINUTES Tremayne Gibson DO [address] [place] [address] Referral ID Status Reason Start Date Expiration Date Visits Re quested Visits Authorized [id number] Closed 03/08/2023 06/06/2023 1 1 Reason Comments Follow Up Follow up on Vanessa ons Reason Onset Date Comments Refill Request 01/30/2024 Reason Comments Follow Up Parkinson's Disease Per patient statebhavana t, My residential fee appraiser wants me to start Lipitor and I wanted to check with him prior to starting. Patient conts with P.T. and is going well. Specialty Diagnoses / Procedures Referred By Lyubov marks Referred To Contact Diagnoses PD (Parkinson's disease) ([facility]) Sialorrhea RBD (REM behavioral disorder) Procedures PROVIDER ORDERED FOLLOW UP OFFICE/OUTPATIENT NEW HIGH MDM 60 MINUTES Tremayne Gibson, DO [address] [place] [address] Referral ID Status Reason Start Date Expiration Date Visits Re quested Visits Authorized [id number] Closed 05/16/2024 08/14/2024 1 1 Reason Onset Date Comments Refill Request 08/04/2024 Reason Onset Date Comments Refill Request 09/02/2024 Reason Comments Follow Up Established Patient Patient recently kishan gnosed with Prostate cancer. Parkinson's Disease Per patient he is st ruggling with constipation. Per he is not using miralax. Fall November 2024 patient f ainted in shower and fell to floor. Per patient he feel it could be related to syncope. No falls since then. Specialty Diagnoses / Procedures Referred By Lyubov marks Referred To Contact Diagnoses PD (Parkinson's disease) ([facility]) Procedures PROVIDER ORDERED FOLLOW UP OFFICE/OUTPATIENT NEW HIGH MDM 60 MINUTES Tremayne Gibson, DO [address] [place] [address] Phone: tel: fax: Referral ID Status Reason Start Date Expiration Date Visits Re quested Visits Authorized [id number] Closed 11/27/2024 02/25/2025 1 1 Reason Comments Consult Reason Comments Future Appointment Patient Update Reason Comments Patient Update Reason Comments Appointment (unrecognized sect ion and content) No Status Records FoundNo Status Records FoundNo Status Records FoundNo Status Records FoundNo Status Records FoundNo Status Records Found INFORMATION SOURCE (unrecogn ized section and content) DATE CREATED AUTHOR 10/10/2022 [facility] DATE CREATED AUTHOR AUTHOR'S ORGANIZ ATION 05/04/2024 [facility] DATE CREATED AUTHOR AUTHOR'S ORGANIZ ATION 02/22/2025 [facility] DATE CREATED AUTHOR AUTHOR'S ORGANIZ ATION 03/20/2025 [facility] DATE CREATED AUTHOR AUTHOR'S ORGANIZ ATION 03/21/2025 [facility] DATE CREATED AUTHOR AUTHOR'S ORGANIZ ATION 04/02/2025 [facility] Care Teams (unrecognized sec tion and content) Team Status: Active Member Role Status Dates Taras Woodruff DO Primary Care Provider Active Team Status: Inactive Member Role Status Dates Cole Nash MD Attending Provider Active St art: December 23, 2024 End: December 23, 2024 Team Status: Inactive Member Role Status Dates Tremayne Gibson DO Attending Provider Active Start: February 04, 2025 End: February 04, 2025 Taras Woodruff DO Primary Care Provider Active Start: February 04, 2025 End: February 04, 2025 Team Status: Inactive Member Role Status Dates Taras Woodruff DO Primary Care Provider Active Start: March 13, 2025 End: March 13, 2025 Shabana Page APRN Attending Provider Active Start: March 13, 2025 End: March 13, 2025 Team Status: Active Member Role Status Dates Taras Woodruff DO Primary Care Provider Active Start: November 13, 2024 Taras Woodruff DO Attending Provider Active Sta rt: November 13, 2024 Evaluation Engineer Relationship Specialty Start Date End Date Taras Woodruff DO [address] [place] [address] PCP - General Internal Medicine 05/29/24 Evaluation Engineer Relationship Specialty Start Date End Date Taras Woodruff DO [address] [place] [address] PCP - General Internal Medicine 05/29/24 Evaluation Engineer Relationship Specialty Start Date End Date Taras Woodruff DO [address] [place] [address] PCP - General Internal Medicine 05/29/24 Evaluation Engineer Relationship Specialty Start Date End Date Taras Woodruff DO [address] [place] [address] PCP - General Internal Medicine 05/29/24 Team Status: Inactive Member Role Status Dates Taras Woodruff DO Primary Care Provide r, Attending Provider Active Start: October 06, 2024 End: October 06, 2024 Evaluation Engineer Relationship Specialty Start Date End Date Taras Woodruff DO [address] [place] [address] PCP - General Internal Medicine 05/29/24 Evaluation Engineer Relationship Specialty Start Date End Date Taras Woodruff DO [address] [place] [address] PCP - General Internal Medicine 05/29/24 Evaluation Engineer Relationship Specialty Start Date End Date Taras Woodruff DO [address] [place] [address] PCP - General Internal Medicine 05/29/24 Evaluation Engineer Relationship Specialty Start Date End Date Taras Woodruff DO [address] [place] [address] PCP - General Internal Medicine 05/29/24 Team Status: Inactive Member Role Status Dates Taras Woodruff DO Primary Care Provider Active Start: March 19, 2025 End: March 19, 2025 Taras Woodruff DO Attending Provider Active Sta rt: March 19, 2025 End: March 19, 2025 Evaluation Engineer Relationship Specialty Start Date End Date Taras Woodruff DO [address] [place] [address] PCP - General Internal Medicine 05/29/24 Goals (unrecognized section and content) Goals may [...] BE BASED ON THE PRIMARY CLINICAL RECORDS. [facility]. provides no warranty or guarantee of the accuracy or completeness of information in this document.
[2025-04-02 11:30] LABS: Hematocrit 43.4 % (42.0-54.0); Hemoglobin 14.5 g/dL (14.0-18.0); Immature Granulocytes Abs Auto 0.01 10^3/uL (0.00-0.03); Immature Granulocytes Pct Auto 0.2 % (0.0-0.5); Lymphocytes Absolute Auto 1.3 10^3/uL (1.2-3.8); Mean Corpuscular HGB Conc 33.4 g/dL (29.9-35.2); Mean Corpuscular Hemoglobin 31.7 pg (25.9-34.0); Mean Corpuscular Volume 94.8 fL (80.0-94.0); Platelet Count 288 10^3/uL (150-450); Red Blood Count 4.58 10^6/uL (4.70-6.10); White Blood Count 6.0 10^3/uL (4.0-11.0)
[2025-04-02 11:37] LABS: Anion Gap 10.0; Blood Urea Nitrogen 17.0 mg/dL (7.0-18.0); Calcium 9.0 mg/dL (8.5-10.1); Carbon Dioxide 30.1 mmol/L (21.0-32.0); Chloride 106 mmol/L (98-107); Estimated GFR (African America >60 (>=60 mL/min/1.73m^2); Estimated GFR (Non-African Ame 59 (>=60 mL/min/1.73m^2); Glucose 97 mg/dL (74-106); Potassium 4.1 mmol/L (3.5-5.1); Sodium 142 mmol/L (136-145)
[2025-04-02 11:52] LABS: INR 1.04; Partial Thromboplastin Time 36.5 sec (22.3-36.2); Prothrombin Time 11.0 sec (9.0-11.6)
== END 2025-04-02 10:44 | disposition home or self-care (01) ==
LOC: PST 10:43
PROVIDERS: PCP Internal Medicine; Visit Provider Urology
DX: Z01.812 Encounter for preprocedural laboratory examination (principal); C61 Malignant neoplasm of prostate
CPT/HCPCS: 80048; 85025; 85610; 85730

== ENCOUNTER 2025-04-16 06:44 | Day surgery (SDC) | payer OTHER, SELFPAY ==
--- OUTSIDE RECORDS SUMMARY | 2025-04-01 09:00 | XMS_ITS | Encounter Summary ---
Author Organization [facility] Address [address] [place] [address] Care Team Providers Care Livestock Rancher Name Role Phone Taras Pickett DO Primary Care Provider [phone] Source Comments In the event this information is protected by the Federal Confidentiality of Alcohol and Drug AbusePatient Records regulations: The Federal rules restrict any use of the information to criminally investigate or prosecute any alcohol or drug abuse patient.[facility] Encounter Details Date Type Department Care Team (Late st Contact Info) Description 04/01/2025 9:00 AM EDT Office Visit Radiation Oncology [address] [place] [address] [place] [address] Adama Graf MD [address] [place] [address] [place] [address] Malignant neoplasm of prostate (HCC) (Primary Dx) Social History Tobacco Use Types Packs/Day Years Used Date Smoking Tobacco: Never Smokeless Tobacco: Never Alcohol Use Standard Drinks/Week Comments Not Currently 0 (1 standard drink = 0.6 oz pur e alcohol) PHQ-2 Answer Date Recorded PHQ-2 score 0 01/06/2025 Area Deprivation Index Answer Date Solomon rded National Score (1-100), lower number is lower ri 78 01/15/2023 State Score (1-10), lower number is lower risk 6 01/15/2023 Data from: https://www.neighborhoodatlas.medicine.[facility]/. Last address used for calculation [address] 01/15/2023 Sex and Gender Information Value Date Recorded Sex Assigned at Not on file Legal Sex Male 11:10 AM EST Gender Identity Not on file Sexual Orientation Choose not to disclose 2021 10:41 AM EST documented as of this encounter Progress Notes * Adama Graf MD - 04/01/2025 8:51 AM EDT UNIVERSAL PROTOCOL / SAFETY CHECKLIST Procedure to be Performed: Prostate volume study Sign In: A Moment of CARE was completed. Appropriate PPE (Personal Protective Equipment) worn by all providers involved with the procedure. Special equipment utilized . Patient/Surrogate Stated/Verified: Patient name, Date of , Relevant allergies, and The intended procedure Time Out: Relevant labs, photos, and/or imaging studies have been reviewed. Intended patient and procedure match the source document(s) (e.g. consent, H&P, associated studies [imaging, pathology]) match the intended patient and procedure. Consent obtained and matches the intended procedure. Yes. Correct side/site is not applicable. Medications required for this procedure are verified. Fire risk assessed and is not applicable. Implants: are not applicable. Sign Out: Specimens are all correctly labeled and sent. All instruments, equipment, possible retained foreign bodies are accounted for. Yes. The post-procedure plan of care has been communicated to the patient or surrogate. documented in this encounter Plan of Treatment Upcoming Encounters Date Type Department Care Team (Late st Contact Info) Description 04/16/2025 8:00 AM EDT Office Visit Radiation Oncology [address] [place] [address] Adama Graf MD [address] [place] [address] [place] [address] [facility] 05/07/2025 2:30 PM EDT Office Visit Radiation Oncology [address] [place] [address] Adama Graf MD [address] [place] [address] Follow up 05/14/2025 8:00 AM EDT Appointment Radiology Pet CT [address] [place] [address] [place] [address] 05/26/2025 3:30 PM EDT Office Visit Radiation Oncology [address] [place] [address] Adama Graf MD [address] [place] [address] Follow up 07/16/2025 4:30 PM EST Office Visit Neurology [address] [place] [address] Tremayne Gibson DO [address] [place] [address] Return in about 6 months (around 07/10/2025). documented as of this encounter Visit Diagnoses Diagnosis Malignant neoplasm of prostate (HCC)- Primary Malignant neoplasm of prostate documented in this encounter Care Teams Livestock Rancher Relationship Specialty Start Date End Date Taras Pickett DO [address] [place] [address] PCP - General Internal Medicine 05/29/24 documented as of this encounter
[2025-04-02 11:15] VITALS: BP 133/73; PULSE 98; TEMP 36.3; O2SAT 99; BMI 21.9
[2025-04-16] VITALS (10 sets, daily range): BP systolic 108–142; BP diastolic 71–97; PULSE 62–89; TEMP 36.3–36.4; O2SAT 94–97; BMI 21.9
--- NOTE | 2025-04-16 | XR_ITS ---
[address] [address] Patient Name: COLE KNOWLES MRN: [id number] date: 1960 Sex: M Assigned [facility] Current Patient Location: [facility] Accession/Order Number: [id number] Exam Date: 04/16/2025 08:08 Report Date: 04/16/2025 10:31 At the request of: COLE NASH MD Procedure: XR pelvis 1-2V AP PELVIS - 2 views: CLINICAL HISTORY: prostate seed implant COMPARISON: None Two spot films of the pelvis were obtained. The initial image shows contrast within the urinary bladder. On the second image, multiple radiation seeds are now seen inferior to the bladder presumably within the prostate. XR/XR pelvis 1-2V IMPRESSION: INTERVAL PLACEMENT OF PROSTATE RADIATION SEEDS. Impression dictated by: Callie Dickerson M.D. 04/16/2025 10:31 AM Dictation Location: [place] [address] Electronically authenticated by: [id number] Y Date: 04/16/2025 10:31
--- OUTSIDE RECORDS SUMMARY | 2025-04-16 06:46 | XMS_ITS | Encounter Summary ---
Author Organization [facility] Address [address] [place] [id number] Care Team Providers Care Tire Mold Engraver Name Role Phone Taras Pickett DO Primary Care Provider [phone] Source Comments In the event this information is protected by the Federal Confidentiality of Alcohol and Drug AbusePatient Records regulations: The Federal rules restrict any use of the information to criminally investigate or prosecute any alcohol or drug abuse patient.[facility] Encounter Details Date Type Department Care Team (Late st Contact Info) Description 02/03/2023 Get Medical Advice Neurology [address] [place] [address] [place] [address] [place] [address] lab results Social History Tobacco Use Types Packs/Day Years Used Date Smoking Tobacco: Never Smokeless Tobacco: Never PHQ-2 Answer Date Recorded PHQ-2 score 1 09/03/2022 Area Deprivation Index Answer Date Solomon rded National Score (1-100), lower number is lower ri sk 78 01/15/2023 State Score (1-10), lower number is lower risk 6 01/15/2023 Data from: https://www.neighborhoodatlas.medicine.[facility].edu/. Last address used for calculation Alicia Torres 01/15/2023 Sex and Gender Information Value Date Recorded Sex Assigned at Not on file Legal Sex Male 11:10 AM EST Gender Identity Not on file Sexual Orientation Choose not to disclose 2021 10:41 AM EST documented as of this encounter Plan of Treatment Upcoming Encounters Date Type Department Care Team (Late st Contact Info) Description 04/16/2025 8:00 AM EDT Office Visit Radiation Oncology [address] [place] [address] [place] [address] Adama Graf MD [address] [place] [address] [place] [address] Seed Implant at [facility] 05/07/2025 2:30 PM EDT Office Visit Radiation Oncology [address] [place] [address] [place] [address] Adama Graf MD [address] [place] [address] [place] [address] Follow up 05/14/2025 8:00 AM EDT Appointment Radiology [address] [facility] [address] [facility] [place] [address] 05/26/2025 3:30 PM EDT Office Visit Radiation Oncology [address] [place] [address] [place] [address] Adama Graf MD [address] [place] [address] [place] [address] Follow up 07/16/2025 4:30 PM EST Office Visit Neurology [address] [place], [place] [id number] Tremayne Gibson DO [address] [place] [address] Return in about 6 months (around 07/10/2025). documented as of this encounter Visit Diagnoses Not on filedocumented in this encounter Care Teams Tire Mold Engraver Relationship Specialty Start Date End Date Taras Pickett DO [address] [place] [id number] PCP - General Internal Medicine 05/29/24 documented as of this encounter
--- OUTSIDE RECORDS SUMMARY | 2025-04-16 06:46 | XMS_ITS | Encounter Summary ---
Author Organization [facility] Address [address] [place] [address] Care Team Providers Care Business Planner Name Role Phone Taras Pickett Primary Care Provider [phone] Source Comments In the event this information is protected by the Federal Confidentiality of Alcohol and Drug AbusePatient Records regulations: The Federal rules restrict any use of the information to criminally investigate or prosecute any alcohol or drug abuse patient.[facility] Encounter Details Date Type Department Care Team (Late st Contact Info) Description 2024 [place] [address] Provider, f Medicare Coverage of Physical Exams Social History Tobacco Use Types Packs/Day Years Used Date Smoking Tobacco: Never Smokeless Tobacco: Never PHQ-2 Answer Date Recorded PHQ-2 score 0 11/14/2023 Area Deprivation Index Answer Date Solomon rded National Score (1-100), lower number is lower ri sk 78 01/15/2023 State Score (1-10), lower number is lower risk 6 01/15/2023 Data from: https://www.neighborhoodatlas.medicine.[facility].edu/. Last address used for calculation [address] [place] [address] 01/15/2023 Sex and Gender Information Value Date Recorded Sex Assigned at Not on file Legal Sex Male 11:10 AM EST Gender Identity Not on file Sexual Orientation Choose not to disclose 2021 10:41 AM EST documented as of this encounter Plan of Treatment Upcoming Encounters Date Type Department Care Team (Late st Contact Info) Description 04/16/2025 8:00 AM EDT Office Visit Radiation Oncology [address] [place] [address] [place] [address] Adama Graf MD [address] [place] [address] [place] [address] Seed Implant at The [facility] 05/07/2025 2:30 PM EDT Office Visit Radiation Oncology [address] [facility] [place] [address] Adama Graf MD [address] [place] [address] [place] [address] Follow up 05/14/2025 8:00 AM EDT Appointment Radiology Pet [facility] [address] [place] [address] 05/26/2025 3:30 PM EDT Office Visit Radiation Oncology [address] [place] [address] [place] [address] Adama Graf MD [address] [place] [address] [place] [address] Follow up 07/16/2025 4:30 PM EST Office Visit Neurology [address] [place] [address] Tremayne Gibson DO [address] [place], [place] [id number] Return in about 6 months (around 07/10/2025). documented as of this encounter Visit Diagnoses Not on filedocumented in this encounter Care Teams Business Planner Relationship Specialty Start Date End Date Taras Pickett DO [address] [place] [address] PCP - General Internal Medicine 05/29/24 documented as of this encounter
--- OUTSIDE RECORDS SUMMARY | 2025-04-16 06:46 | XMS_ITS | Encounter Summary ---
Author Organization [facility] Address [address] [place] [address] Care Team Providers Care Combine Operator Name Role Phone Taras Pickett Primary Care Provider [phone] Source Comments In the event this information is protected by the Federal Confidentiality of Alcohol and Drug AbusePatient Records regulations: The Federal rules restrict any use of the information to criminally investigate or prosecute any alcohol or drug abuse patient.[facility] Encounter Details Date Type Department Care Team (Late st Contact Info) Description 04/10/[address] [place] [address] Provider, Ccf Social History Tobacco Use Types Packs/Day Years [...] is lower risk 6 01/15/2023 Data from: https://www.neighborhoodatlas.medicine.[facility].edu/. Last address used for calculation [address] [place] [address] 01/15/2023 Sex and Gender Information Value Date Recorded Sex Assigned at Not on file Legal Sex Male 11:10 AM EST Gender Identity Not on file Sexual Orientation Choose not to disclose 2021 10:41 AM EST documented as of this encounter Plan of Treatment Upcoming Encounters Date Type Department Care Team (Late st Contact Info) Description 04/16/2025 8:00 AM EDT Office Visit Radiation Oncology [address] [place] [address] [place] [address] Adama Graf MD [address] [place] [address] Seed Implant at The [facility] 05/07/2025 2:30 PM EDT Office Visit Radiation Oncology [address] [place] [address] Adama Graf MD [address] [place] [address] [place] [address] Follow up 05/14/2025 8:00 AM EDT Appointment Radiology Pet CT [address] [place] [place] [address] 05/26/2025 3:30 PM EDT Office Visit Radiation Oncology [address] [facility] [place] [address] Adama Graf MD [address] [place] [address] Follow up 07/16/2025 4:30 PM EST Office Visit Neurology [address] [place] [address] Tremayne Gibson DO [address] [place] [address] Return in about 6 months (around 07/10/2025). documented as of this encounter Visit Diagnoses Not on filedocumented in this encounter Care Teams Combine Operator Relationship Specialty Start Date End Date Taras Pickett DO [address] [place] [address] PCP - General Internal Medicine 05/29/24 documented as of this encounter
--- OUTSIDE RECORDS SUMMARY | 2025-04-16 06:46 | XMS_ITS | Encounter Summary ---
Author Organization [facility] Address [address] [place] [address] Care Team Providers Care Dermatology Nurse Practitioner Name Role Phone Taras Pickett Primary Care Provider [phone] Source Comments In the event this information is protected by the Federal Confidentiality of Alcohol and Drug AbusePatient Records regulations: The Federal rules restrict any use of the information to criminally investigate or prosecute any alcohol or drug abuse patient.[facility] Encounter Details Date Type Department Care Team (Late st Contact Info) Description 11/20/2024 Patient Msg Neurology [address] [place], [place] [id number] Provider, Ccf Research Helps Us Understand Parkinson's Disease - Join Us To Learn How! Social History Tobacco Use Types Packs/Day Years Used Date Smoking Tobacco: Never Smokeless Tobacco: Never PHQ-2 Answer Date Recorded PHQ-2 score 0 05/23/2024 Area Deprivation Index Answer Date Solomon rded National Score (1-100), lower number is lower ri sk 78 01/15/2023 State Score (1-10), lower number is lower risk 6 01/15/2023 Data from: https://www.neighborhoodatlas.medicine.[facility].edu/. Last address used for calculation [address] [place] [address] 01/15/2023 Sex and Gender Information Value Date Recorded Sex Assigned at Not on file Legal Sex Male 11:10 AM EST Gender Identity Not on file Sexual Orientation Choose not to disclose 2021 10:41 AM EST documented as of this encounter Plan of Treatment Upcoming Encounters Date Type Department Care Team (Late st Contact Info) Description 04/16/2025 8:00 AM EDT Office Visit Radiation Oncology [address] [place] [address] [place] [address] Adama Graf MD [address] [facility] [place] [address] Seed Implant at [facility] 05/07/2025 2:30 PM EDT Office Visit Radiation Oncology [address] [facility] [place] [address] Adama Graf MD [address] [facility] [place] [address] Follow up 05/14/2025 8:00 AM EDT Appointment Radiology Pet CT [address] [place] [address] 05/26/2025 3:30 PM EDT Office Visit Radiation Oncology [address] [place] [address] Adama Graf MD [address] [facility] [place] [address] Follow up 07/16/2025 4:30 PM EST Office Visit Neurology [address] [place] [address] Tremayne Gibson DO [address] [place] [address] Return in about 6 months (around 07/10/2025). documented as of this encounter Visit Diagnoses Not on filedocumented in this encounter Care Teams Dermatology Nurse Practitioner Relationship Specialty Start Date End Date Taras Pickett DO [address] [place] [address] PCP - General Internal Medicine 05/29/24 documented as of this encounter
--- OUTSIDE RECORDS SUMMARY | 2025-04-16 06:46 | XMS_ITS | Encounter Summary ---
Author Organization [facility] Address [address] [place] [address] Care Team Providers Care Adult Remedial Education Instructor Name Role Phone Taras Pickett Primary Care Provider [phone] Source Comments In the event this information is protected by the Federal Confidentiality of Alcohol and Drug AbusePatient Records regulations: The Federal rules restrict any use of the information to criminally investigate or prosecute any alcohol or drug abuse patient.[facility] Encounter Details Date Type Department Care Team (Late st Contact Info) Description 09/16/2024 Patient Msg Neurology [address] [place], [place] [id number] Provider, Ccf [facility] from [facility] Social History Tobacco Use Types Packs/Day Years Used Date Smoking Tobacco: Never Smokeless Tobacco: Never PHQ-2 Answer Date Recorded PHQ-2 score 0 05/23/2024 Area Deprivation Index Answer Date Solomon rded National Score (1-100), lower number is lower ri sk 78 01/15/2023 State Score (1-10), lower number is lower risk 6 01/15/2023 Data from: https://www.neighborhoodatlas.medicine.[facility].edu/. Last address used for calculation [address] [place] [address] 01/15/2023 Sex and Gender Information Value Date [...] AM EDT Office Visit Radiation Oncology [address] [facility] [place] [address] Adama Graf MD [address] [place] [address] [place] [address] Seed Implant at [facility] 05/07/2025 2:30 PM EDT Office Visit Radiation Oncology [address] [facility] [place] [address] Adama Graf MD [address] [place] [address] [place] [address] Follow up 05/14/2025 8:00 AM EDT Appointment Radiology Pet [facility] [address] [facility] [place] [address] 05/26/2025 3:30 PM EDT Office Visit Radiation Oncology [address] [place] [address] [place] [address] Adama Graf MD [address] [place] [address] [place] [address] Follow up 07/16/2025 4:30 PM EST Office Visit Neurology [address] [place] [address] Tremayne Gibson DO [address] [place] [address] Return in about 6 months (around 07/10/2025). documented as of this encounter Visit Diagnoses Not on filedocumented in this encounter Care Teams Adult Remedial Education Instructor Relationship Specialty Start Date End Date Taras Pickett DO [address] [place] [address] PCP - General Internal Medicine 05/29/24 documented as of this encounter
--- OUTSIDE RECORDS SUMMARY | 2025-04-16 06:46 | XMS_ITS | Clinical Summary ---
Author Organization [facility] Address [address] [place] [address] Care Team Providers Care Sales Service Representative Name Role Phone Taras Pickett DO Primary Care Provider [phone] Allergies No known active allergies Medications aspirin 325 mg tablet in the morning. Active carbidopa-levodop a (Sinemet) 25-100 mg tablet Take 1 tablet by mouth in the morning, afternoon, and at bedtime. Taking four times a day 09/21/19 23 Active dilTIAZem CD (Cardizem CD) 120 mg 24 hr capsuleIndication s:Essential hypertension Take 1 capsule (120 mg) by mouth in the morning. 90 capsule 3 09/03/19 25 026 Active atorvastatin (Lipitor) 80 mg tabletIndications :Mixed hyperlipidemia Take 1 tablet (80 mg) by mouth every other day. 03/19/20 25 026 Active dilTIAZem CD (Cardizem CD) 240 mg 24 hr capsuleIndication s:Paroxysmal ventricular tachycardia (CMS/HCC) Take 1 capsule (240 mg) by mouth once daily as directed. 90 capsule 3 09/26/19 24 025 Discontinued(Me d List Cleanup) atorvastatin (Lipitor) 80 mg tabletIndications :Mixed hyperlipidemia Take 1 tablet (80 mg) by mouth in the morning. 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 Continue to monitor for increased dilation. -Last echo in 2019 showed ascending thoracic aorta measuring 4.2. CTA in 2023 showed no increase in size. Dizziness and giddiness 12/28/2011 04/03/20 Cardiac pacemaker in situ 12/22/20112022 Assessment & Plan (04/16/2024 12:27 PM EDT): Device check on 03/19/24 -Found to have normal functioning. -Pacemaker life: 3 year 10 month remaining. -Atrial paced 45%, RV paced 15%. Conduction disorder of the heart 12/15/2011 04/03/2023 Hyperlipidemia 12/15/2011 04/03/2023 Assessment & Plan (04/16/2024 12:24 PM EDT): Lipid studies from 09/28/23 show elevated LDL at 128.4. -Started Lipitor 40 mg at today's visit for better lipid control. -Will re-draw lipids and CMP in 3 months. Paroxysmal atrial fibrillation 12/15/2011 0 04/03/2023 Overview (04/03/2023): PAF Assessment & Plan (04/16/2024 12:41 PM EDT): -Patient has no concerning symptoms. -GPUI0Y1-FSPX score: 1 (age). 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 Resolved Problems Problem Noted Date Diagnosed Date Resolved Date Primary erectile dysfunction 04/03/2023 04/03/2023 09/02/2024 Encounters Date Type Department Care Team Description 03/19/2025 Orders [address] [phone] Diana Heller MA Aortic dilatation (Primary Dx) 03/18/2025 2:40 PM EDT Office Visit [address] [address] Nadja Maria CNP Pre-op evaluation (Primary Dx); Paroxysmal atrial fibrillation (CMS/HCC); Conduction disorder of the heart; Cardiac pacemaker in situ; Aneurysm of ascending aorta without rupture; Mixed hyperlipidemia 02/24/2025 11:45 AM EDT Ancillary Procedure [address] [address] Encounter for implantable defibrillator reprogramming or check 01/29/2025 4:50 PM EDT Ancillary Procedure [facility] [address] [place] [phone] Adjustment and management of cardiac pacemaker 01/19/2025 Orders Only [facility] [address] [place] [phone] Mack Todd MD from Last 3 Months Family History Relation Name Status Comments Father Mother Alive Social History Tobacco Use Types Packs/Day Years Used Date Smoking Tobacco: Never Smokeless Tobacco: Never Tobacco Cessation:Counseling Given: Not Answered Alcohol Use Standard Drinks/Week Comments Not Currently 0 (1 standard drink = 0.6 oz pur e alcohol) [place] Safety & Environment Answer Date Rec orded Fear of Current or Ex-Partner Not on file Emotionally Abused Not on file 09/27/2023 Physically Abused Not on file 09/27/2023 Sexually Abused Not on file 09/27/2023 Physically or Sexually Abused Not on file Sex and Gender Information Value Date Recorded Sex Assigned at Male 03/12/2025 1:51 PM EDT Legal Sex Male 9:55 PM EDT Gender Identity Male 03/12/2025 1:51 PM EDT Sexual Orientation Heterosexual or Straight 02/2025 1:51 PM EDT Last Filed Vital Signs Vital Sign Reading Time Taken Comments Blood Pressure 110/83 03/18/2025 3:15 PM EDT Pulse 90 03/18/2025 3:15 PM EDT Temperature - - Respiratory Rate - - Oxygen Saturation 96% 03/18/2025 3:15 PM EDT Inhaled Oxygen Concentration - - Weight 85.7 kg (189 lb) 03/18/2025 3:15 PM EDT Height 195.6 cm (6' 5 ) 03/18/2025 3:15 PM EDT Body Mass Index 22.41 03/18/2025 3:15 PM EDT Plan of Treatment Health Maintenance Due Date Last Done Comments CT Colonography 1959 Colonoscopy 1959 FOBT 1959 Sigmoidoscopy 1959 Depression Screening 1971 Adult Tetanus 1981 Pneumococcal Vaccine: 50+ Years (1 of 1 - PCV) 2009 Zoster Vaccines (1 of 2) 2009 Fall Risk Screening 2024 FIT 01/20/2025 01/21/2024, 03/24/2021 COVID-19 Vaccine (1 - 2023-2 5 season) 2025 Influenza Vaccine (#1) 2025 Colorectal Cancer Screening 01/20/2027 FIT-DNA 01/20/2027 01/21/2024 HIB Vaccines Aged Out No longer eligi ble based on patient's age to complete this topic HPV Vaccines Aged Out No longer eligi ble based on patient's age to complete this topic IPV Vaccines Aged Out No longer eligi ble based on patient's age to complete this topic Meningococcal B Vaccine Aged Out No l onger eligible based on patient's age to complete this topic Meningococcal Vaccine Aged Out No laura carlos eligible based on patient's age to complete this topic Rotavirus Vaccines Aged Out No longer eligible based on patient's age to complete this topic Procedures Procedure Name Priority Date/Time Associated Diagnosis Comments ECG 12 LEAD UNIT PERFORMED Routine 03/18/2025 3:33 PM EDT Pre-op evaluation CARDIAC DEVICE CHECK - IN CLINIC - PACEMAKER DUAL CHAMBER W/ PROG Routine 02/27/2025 9:58 AM EDT Encounter for implantable defibrillator reprogramming or check CARDIAC DEVICE CHECK CHECK - REMOTE Routine 02/20/2025 6:46 PM EDT Adjustment and management of cardiac pacemaker CARDIAC DEVICE CHECK - REMOTE - PACEMAKER Routine 01/19/2025 12:00 AM EDT from Last 3 Months Results * ECG 12 lead unit performed (03/18/2025 3:33 PM EDT) Nadja Maria HIGHWAY INSPECTOR ECG ORDERABLES Final Result * CARDIAC DEVICE CHECK - IN CLINIC - PACEMAKER DUAL CHAMBER W/ PROG (02/27/2025 9:58 AM EDT) Anatomical Region Laterality Modality Other Narrative 03/03/2025 10:16 AM EDT By using the attestations below, the signing clinician agrees that I have read and verify that the documentation has been personally reviewed by me and ensure that the documentation accurately reflects the encounter. Routine EP device follow up as per schedule. Please see attached note us Mack Todd MD CV IMPLANTABLE CARDIAC DEVICE NM OCEDURES Final Result * CARDIAC DEVICE CHECK - REMOTE - PACEMAKER (02/20/2025 6:46 PM EDT) Andrew Russell MD CV IMPLANTABLE CARDIAC DEVICE NM OCEDURES Final Result CPACS * Cardiac device check - Remote pacemaker (01/19/2025 12:00 AM EDT) Anatomical Region Laterality Modality Other 01/19/2025 Mack Todd MD CV IMPLANTABLE CARDIAC DEVICE NM OCEDURES Final Result from Last 3 Months Insurance [employer] Care Teams Sales Service Representative Relationship Specialty Start Date End Date Taras Pickett DO [address] [place] [phone] PCP - General 10/03/22
--- OUTSIDE RECORDS SUMMARY | 2025-04-16 06:46 | XMS_ITS | Encounter Summary ---
Author Organization [facility] Address [address] [place] [address] Care Team Providers Care Dancing Master Name Role Phone Taras Pickett Primary Care Provider [phone] Source Comments In the event this information is protected by the Federal Confidentiality of Alcohol and Drug AbusePatient Records regulations: The Federal rules restrict any use of the information to criminally investigate or prosecute any alcohol or drug abuse patient.[facility] Encounter Details Date Type Department Care Team (Late st Contact Info) Description 06/25/2024 Patient Msg Neurology [address] [place], [place] [phone] Provider, Ccf A Message from [facility] Social History Tobacco Use Types Packs/Day Years Used Date Smoking Tobacco: Never Smokeless Tobacco: Never PHQ-2 Answer Date Recorded PHQ-2 score 0 05/23/2024 Area Deprivation Index Answer Date Solomon rded National Score (1-100), lower number is lower ri sk 78 01/15/2023 State Score (1-10), lower number is lower risk 6 01/15/2023 Data from: https://www.neighborhoodatlas.medicine.[facility].edu/. Last address used for calculation [address] [place] [address] 01/15/2023 Sex and Gender Information Value Date Recorded Sex Assigned at Not on file Legal Sex Male 11:10 AM EST Gender Identity Not on file Sexual Orientation Choose not to disclose 2021 10:41 AM EST documented as of this encounter Plan of Treatment Upcoming Encounters Date Type Department Care Team (Late st Contact Info) Description 04/16/2025 8:00 AM EDT Office Visit Radiation Oncology [address] [place] [address] [place] [address] Adama Graf MD [address] [place] [address] Seed Implant at [facility] 05/07/2025 2:30 PM EDT Office Visit Radiation Oncology [address] [facility] [place] [address] Adama Graf MD [address] [place] [address] [place] [address] Follow up 05/14/2025 8:00 AM EDT Appointment Radiology Pet CT [address] [facility] [place] [address] 05/26/2025 3:30 PM EDT Office Visit Radiation Oncology [address] [place] [address] Adama Graf MD [address] [place] [address] Follow up 07/16/2025 4:30 PM EST Office Visit Neurology [address] [place] [address] Tremayne Gibson DO [address] [place] [address] Return in about 6 months (around 07/10/2025). documented as of this encounter Visit Diagnoses Not on filedocumented in this encounter Care Teams Dancing Master Relationship Specialty Start Date End Date Taras Pickett DO [address] [place] [address] PCP - General Internal Medicine 05/29/24 documented as of this encounter
--- OUTSIDE RECORDS SUMMARY | 2025-04-16 06:46 | XMS_ITS | Encounter Summary ---
Author Organization [facility] Address [address] [place] [address] Care Team Providers Care Supervisor Slitting And Shipping Name Role Phone Taras Pickett DO Primary Care Provider [phone] Encounter Details Date Type Department Care Team (Late st Contact Info) Description 01/19/2025 Orders Only [facility] [address] [place] [address] Mack Todd MD [address] [place] [address] Social History Tobacco Use Types Packs/Day Years [...] Heterosexual or Straight 02/2025 1:51 PM EDT documented as of this encounter Plan of Treatment Not on file documented as of this encounter Procedures Procedure Name Priority Date/Time Associated Diagnosis Comments CARDIAC DEVICE CHECK - REMOTE - PACEMAKER Routine 01/19/2025 12:00 AM EDT documented in this encounter Results * Cardiac device check - Remote pacemaker (01/19/2025 12:00 AM EDT) Anatomical Region Laterality Modality Other 01/19/2025 Mack Todd MD CV IMPLANTABLE CARDIAC DEVICE AR OCEDURES Final Result documented in this encounter Visit Diagnoses Not on filedocumented in this encounter Care Teams Supervisor Slitting And Shipping Relationship Specialty Start Date End Date Taras Pickett DO [address] [place] [phone] PCP - General 10/03/22 documented as of this encounter
--- OUTSIDE RECORDS SUMMARY | 2025-04-16 06:46 | XMS_ITS | Encounter Summary ---
Author Organization [facility] Address [address] [place] [address] Care Team Providers Care Bar Catcher Name Role Phone Taras Pickett Primary Care Provider [phone] Source Comments In the event this information is protected by the Federal Confidentiality of Alcohol and Drug AbusePatient Records regulations: The Federal rules restrict any use of the information to criminally investigate or prosecute any alcohol or drug abuse patient.[facility] Encounter Details Date Type Department Care Team (Late st Contact Info) Description 08/15/2024 Patient Msg Appointment Center [address] [place] [phone] Provider, Ccf Schedule Social History Tobacco Use Types Packs/Day Years Used Date Smoking Tobacco: Never Smokeless Tobacco: Never PHQ-2 Answer Date Recorded PHQ-2 score 0 05/23/2024 Area Deprivation Index Answer Date Solomon rded National Score (1-100), lower number is lower ri sk 78 01/15/2023 State Score (1-10), lower number is lower risk 6 01/15/2023 Data from: https://www.neighborhoodatlas.medicine.[facility].edu/. Last address used for calculation [address] [place] [address] 01/15/2023 Sex and Gender Information Value Date Recorded Sex Assigned at Not on file Legal Sex Male 11:10 AM EST Gender Identity Not on file Sexual Orientation Choose not to disclose 2021 10:41 AM EST documented as of this encounter Plan of Treatment Upcoming Encounters Date Type Department Care Team (Late st Contact Info) Description 04/16/2025 8:00 AM EDT Office Visit Radiation Oncology [address] [place] [address] [place] [address] Adama Graf MD [address] [place] [address] [place] [address] Seed Implant at The [facility] 05/07/2025 2:30 PM EDT Office Visit Radiation Oncology [address] [place] [address] [place] [address] Adama Graf MD [address] [place] [address] [place] [address] Follow up 05/14/2025 8:00 AM EDT Appointment Radiology Pet CT [address] [facility] [place] [address] 05/26/2025 3:30 PM EDT Office Visit Radiation Oncology [address] [place] [address] [place] [address] Adama Graf MD [address] [place] [address] [place] [address] Follow up 07/16/2025 4:30 PM EST Office Visit Neurology [address] [place] [address] Tremayne Gibson DO [address] [place] [address] Return in about 6 months (around 07/10/2025). documented as of this encounter Visit Diagnoses Not on filedocumented in this encounter Care Teams Bar Catcher Relationship Specialty Start Date End Date Taras Pickett DO [address] [place] [address] PCP - General Internal Medicine 05/29/24 documented as of this encounter
--- OUTSIDE RECORDS SUMMARY | 2025-04-16 06:46 | XMS_ITS | Encounter Summary ---
Author Organization [facility] Address [address] [place] [address] Care Team Providers Care Placing Judge Name Role Phone Taras Pickett DO Primary Care Provider [phone] Source Comments In the event this information is protected by the Federal Confidentiality of Alcohol and Drug AbusePatient Records regulations: The Federal rules restrict any use of the information to criminally investigate or prosecute any alcohol or drug abuse patient.[facility] Encounter Details Date Type Department Care Team (Late st Contact Info) Description 11/16/2021 Get Medical Advice [facility] Speech Therapy [address] [place] [phone] Janice Leon, [facility] [address] [place] [address] need to cancel 14th appointment Social History Tobacco Use Types Packs/Day Years Used Date Smoking Tobacco: Never Assessed Sex and Gender Information Value Date Recorded Sex Assigned at Not on file Legal Sex Male 11:10 AM EST Gender Identity Not on file Sexual Orientation Choose not to disclose 2021 10:41 AM EST documented as of this encounter Plan of Treatment Upcoming Encounters Date Type Department Care Team (Late Contact Info) Description 04/16/2025 8:00 AM EDT Office Visit Radiation Oncology [address] [place] [address] Adama Graf MD [address] [place] [address] Seed Implant at The [facility] 05/07/2025 2:30 PM EDT Office Visit Radiation Oncology [address] [place] [address] Adama Graf MD [address] [place] [address] Follow up 05/14/2025 8:00 AM EDT Appointment Radiology Pet CT [address] [place] [address] 05/26/2025 3:30 PM EDT Office Visit Radiation Oncology [address] [place] [address] Adama Graf MD [address] [place] [address] Follow up 07/16/2025 4:30 PM EST Office Visit Neurology [address] [place] [address] Tremayne Gibson DO [address] [place] [address] Return in about 6 months (around 07/10/2025). documented as of this encounter Visit Diagnoses Not on filedocumented in this encounter Care Teams Placing Judge Relationship Specialty Start Date End Date Taras Pickett DO [address] [place] [address] PCP - General Internal Medicine 05/29/24 documented as of this encounter
--- OUTSIDE RECORDS SUMMARY | 2025-04-16 06:46 | XMS_ITS | Encounter Summary ---
Author Organization [facility] Address [address] [place] [address] Care Team Providers Care Car Worker Helper Name Role Phone Taras Pickett Primary Care Provider [phone] Source Comments In the event this information is protected by the Federal Confidentiality of Alcohol and Drug AbusePatient Records regulations: The Federal rules restrict any use of the information to criminally investigate or prosecute any alcohol or drug abuse patient.[facility] Encounter Details Date Type Department Care Team (Late st Contact Info) Description 09/03/2024 Patient Msg Neurology [address] [place], [place] [id number] Provider, Ccf [facility] from [facility] Social History Tobacco Use Types Packs/Day Years Used Date Smoking Tobacco: Never Smokeless Tobacco: Never PHQ-2 Answer Date Recorded PHQ-2 score 0 05/23/2024 Area Deprivation Index Answer Date Solomon rded National Score (1-100), lower number is lower ri sk 78 01/15/2023 State Score (1-10), lower number is lower risk 6 01/15/2023 Data from: https://www.neighborhoodatlas.medicine.[facility].edu/. Last address used for calculation [address] [place] [address] 01/15/2023 Sex and Gender Information Value Date Recorded Sex Assigned at Not on file Legal Sex Male 11:10 AM EST Gender Identity Not on file Sexual Orientation Choose not to disclose 2021 10:41 AM EST documented as of this encounter Plan of Treatment Upcoming Encounters Date Type Department Care Team (Late st Contact Info) Description 04/16/2025 8:00 AM EDT Office Visit Radiation Oncology [address] [place] [address] [place] [address] Adama Graf MD [address] [facility] [place] [address] Seed Implant at [facility] 05/07/2025 2:30 PM EDT Office Visit Radiation Oncology [address] [facility] [place] [address] Adama Graf MD [address] [place] [address] [place] [address] Follow up 05/14/2025 8:00 AM EDT Appointment Radiology Pet CT [address] [facility] [place] [address] 05/26/2025 3:30 PM EDT Office Visit Radiation Oncology [address] [facility] [place] [address] Adama Graf MD [address] [facility] [place] [address] Follow up 07/16/2025 4:30 PM EST Office Visit Neurology [address] [place] [address] Tremayne Gibson DO [address] [place] [address] Return in about 6 months (around 07/10/2025). documented as of this encounter Visit Diagnoses Not on filedocumented in this encounter Care Teams Car Worker Helper Relationship Specialty Start Date End Date Taras Pickett DO [address] [place] [address] PCP - General Internal Medicine 05/29/24 documented as of this encounter
--- OUTSIDE RECORDS SUMMARY | 2025-04-16 06:46 | XMS_ITS | Encounter Summary ---
Author Organization Address [address] [place] [address] Care Team Providers Care Public Health Dietitian Name Role Phone PiyushTaras Jhonathan WATSON Primary Care Provider [phone] Source Comments In the event this information is protected by the Federal Confidentiality of Alcohol and Drug AbusePatient Records regulations: The Federal rules restrict any use of the information to criminally investigate or prosecute any alcohol or drug abuse patient. Encounter Details Date Type Department Care Team (Late st Contact Info) Description 02/26/2025 Patient Msg Neurology [address] [place], [place] [id number] Provider, Viki Am I an [place] Candidate for New Therapies in Parkinson's Disease? Social History Tobacco Use Types Packs/Day Years [...] is lower risk 6 01/15/2023 Data from: https://www.neighborhoodatlas.medicine.[facility]/. Last address used for calculation Alicia Joel 01/15/2023 Sex and Gender Information Value [...] 8:00 AM EDT Office Visit Radiation Oncology [address] [place] [address] [place] [address] Adama Graf MD [address] [place] [address] [place] [address] Seed Implant at [facility] 05/07/2025 2:30 PM EDT Office Visit Radiation Oncology [address] [place] [address] [place] [address] Adama Graf MD [address] [place] [address] [place] [address] Follow up 05/14/2025 8:00 AM EDT Appointment Radiology Pet CT [address] [facility] [place] [address] 05/26/2025 3:30 PM EDT Office Visit Radiation Oncology [address] [place] [address] [place] [address] Adama Graf MD [address] [place] [address] [place] [address] Follow up 07/16/2025 4:30 PM EST Office Visit Neurology [address] [place], [place] [address] Tremayne Gibson DO [address] [place] [address] Return in about 6 months (around 07/10/2025). documented as of this encounter Visit Diagnoses Not on filedocumented in this encounter Care Teams Public Health Dietitian Relationship Specialty Start Date End Date Taras Pickett DO [address] [place] [phone] PCP - General Internal Medicine 05/29/24 documented as of this encounter
--- OUTSIDE RECORDS SUMMARY | 2025-04-16 06:46 | XMS_ITS | Encounter Summary ---
Author Organization [facility] Address [address] [place] [address] Care Team Providers Care Account Executive Key Accounts Name Role Phone Taras Pickett DO Primary Care Provider [phone] Source Comments In the event this information is protected by the Federal Confidentiality of Alcohol and Drug AbusePatient Records regulations: The Federal rules restrict any use of the information to criminally investigate or prosecute any alcohol or drug abuse patient.[facility] Encounter Details Date Type Department Care Team (Latest Contact Info) Description 04/07/2025 Radiation Oncology Note Radiation Oncology [address] [place] [address] [address] [place] [phone] Adama Graf MD [address] [facility] [address] [place] [phone] Treatment Planning Social History Tobacco Use Types Packs/Day Years [...] is lower risk 6 01/15/2023 Data from: https://www.neighborhoodatlas.[facility]/. Last address used for calculation [address] 01/15/2023 Sex and Gender Information Value Date Recorded Sex Assigned at Not on file Legal Sex Male 11:10 AM EST Gender Identity Not on file Sexual Orientation Choose not to disclose 2021 10:41 AM EST documented as of this encounter Progress Notes * Adama Graf MD - 04/07/2025 12:00 AM EDT COLE RAMOS [id number] 04/07/2025 [facility] Department of Radiation Oncology [facility] RADIATION ONCOLOGY BRACHYTHERAPY TREATMENT PLANNING NOTE For reasons stated in the consult note, COLE RAMOS is a candidate for definitive radiation. Based on review and interpretation of the relevant diagnostic studies together with the exam findings, COLE RAMOS was simulated on 04/01/2025 and the target volume to be treated as well as the critical normal structure(s) were delineated as indicated in the simulation note. I personally reviewed the TRUS and was able to create contours of the volume to be treated and the normal critical structures to be spared. In this particular case, the rectum was deemed to be a critical structure. Special consideration of this was given in light of the potential for increased toxicity if the rectum receives too much radiation dose. After participating in the treatment planning process with medical physics, I approved the best plan to deliver my prescribed course of radiation. The target tissue was planned using pre-planning to allow for the best isodose distribution to deliver a minimum dose of 145 Gy to the prostate. The dose to normal tissue (rectum) and target tissue was confirmed upon review of the calculated dose superimposed on the TRUS images containing the target tissue and the rectum. A completed summary of this plan dated 04/07/2025 incorporated herein by reference includes dose, energy, isodose distribution and DVH. Electronically Signed Viktor Graf M.D. / JOSIAH 2:34 PM documented in this encounter Plan of Treatment Upcoming Encounters Date Type Department Care Team (Late st Contact Info) Description 04/16/2025 8:00 AM EDT Office Visit Radiation Oncology [address] [place] [address] Adama Graf MD [address] [place] [address] Seed Implant at [facility] 05/07/2025 2:30 PM EDT Office Visit Radiation Oncology [address] [place] [address] Adama Graf MD [address] [place] [address] Follow up 05/14/2025 8:00 AM EDT Appointment Radiology Pet CT [address] [place] [address] 05/26/2025 3:30 PM EDT Office Visit Radiation Oncology [address] [place] [address] Adama Graf MD [address] [place] [address] Follow up 07/16/2025 4:30 PM EST Office Visit Neurology [address] [place] [address] Tremayne Gibson, DO [address] [place] [address] Return in about 6 months (around 07/10/2025). documented as of this encounter Visit Diagnoses Not on filedocumented in this encounter Care Teams Account Executive Key Accounts Relationship Specialty Start Date End Date Taras Pickett DO [address] [place] [address] PCP - General Internal Medicine 05/29/24 documented as of this encounter
--- OUTSIDE RECORDS SUMMARY | 2025-04-16 06:46 | XMS_ITS | Clinical Summary ---
Author Organization [facility] Address [address] [place] [address] Care Team Providers Care Party Plan Sales Director Name Role Phone Taras Pickett DO Primary Care Provider [phone] Allergies No known active allergies Medications dilTIAZem CR (TIAZAC, TAZTIA XT) 120 mg 24 hr capsule Take 240 mg by mouth once daily. Active aspirin 325 mg tablet Take 325 mg by mouth once daily. Active atorvastatin (LIPITOR) 80 mg tablet Take 80 mg by mouth once daily. Active carbidopa-levodo pa (SINEMET) 25-100 mg per tabletIndication s:PD (Parkinson's disease) (HCC) Take 1 tablet by mouth four times daily. 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 [address] Adama Graf MD Treatment Planning 04/01/2025 9:00 AM EDT Office Visit Radiation Oncology [address] [place] [address] Adama Graf MD Malignant neoplasm of prostate (HCC) (Primary Dx) 04/01/2025 Radiation Oncology Note Radiation Oncology [address] [place] [address] Adama Graf MD Simulation Note 03/31/2025 Telephone Radiation Oncology [address] [facility] [place] [address] Adama Graf MD Appointment 03/25/2025 Travel 03/12/2025 Clinical Document [facility] [address] Provider, Ccf 02/26/2025 Patient Msg Neurology [address] [place] [place] [address] Provider, Ccf Am I an [place] Candidate for New Therapies in Parkinson's Disease? 02/09/2025 Telephone Radiation Oncology [address] [facility] [place] [address] Adama Graf MD Future Appointment; Patient Update 01/16/2025 Clinical Document [facility] [address] Provider, Ccf 01/14/2025 Telephone Radiation Oncology [address] [place] [address] Adama Graf MD Future Appointment; Patient Update from Last 3 Months Family History Medical History Relation Comments Prostate Cancer Father Neuropathy Maternal Aunt Colon Cancer Maternal Grandmother Neuropathy Maternal Grandmother Neuropathy Maternal Uncle Neuropathy Mother Relation Status Comments Father Maternal Aunt Alive Maternal Grandmother Maternal Uncle Alive Mother Alive Social History Tobacco Use Types [...] is lower risk 6 01/15/2023 Data from: https://www.neighborhoodatlas.medicine.[facility].edu/. Last address used for calculation [address] [place] [address] 01/15/2023 Sex and Gender Information Value Date Recorded Sex Assigned at Not on file Legal Sex Male 11:10 AM EST Gender Identity Not on file Sexual Orientation Choose not to disclose 2021 10:41 AM EST Last Filed Vital Signs Vital Sign Reading Time Taken Comments Blood Pressure 120/84 01/09/2025 11:04 AM EDT Pulse 94 01/09/2025 11:04 AM EDT Temperature 36.7 C (98.1 F) 01/09/2025 11:04 AM EDT Respiratory Rate 16 01/09/2025 11:04 AM EDT Oxygen Saturation 97% 01/09/2025 11:04 AM EDT Inhaled Oxygen Concentration - - Weight 88.5 kg (195 lb 1.7 oz) 01/09/2025 11:04 AM EDT Height 195.6 cm (6' 5 ) 01/09/2025 11:04 AM EDT Body Mass Index 23.14 01/09/2025 11:04 AM EDT Plan of Treatment Upcoming Encounters Date Type Department Care Team (Late st Contact Info) Description 04/16/2025 8:00 AM EDT Office Visit Radiation Oncology [address] [facility] [place] [address] Adama Graf MD [address] [place] [address] [place] [address] Seed Implant at [facility] 05/07/2025 2:30 PM EDT Office Visit Radiation Oncology [address] [place] [address] Adama Graf MD [address] [facility] [place] [address] Follow up 05/14/2025 8:00 AM EDT Appointment Radiology Pet CT [address] [place] [address] 05/26/2025 3:30 PM EDT Office Visit Radiation Oncology [address] [place] [address] Adama Graf MD [address] [facility] [place] [address] Follow up 07/16/2025 4:30 PM EST Office Visit Neurology [address] [place] [address] Tremayne Gibson DO [address] [place], [place] [id number] Return in about 6 months (around 07/10/2025). Health Maintenance Due Date Last Done Comments Anxiety Screening 1977 Depression Screening 1977 Hepatitis C Screening 1977 DTaP,Tdap,Td Vaccine (1 - Tdap) [address] Colonography 2004 Colonoscopy 2004 Diabetes Screening 2004 Fecal Occult Blood 2004 Sigmoidoscopy 2004 Pneumococcal Vaccine: 50+ (1 of 1 - PCV) 2009 Shingrix Vaccine (1 of 2) 2009 Advance Directive Discussion 08/06/2024 Influenza Vaccine (#1) 2025 Cologuard (FIT-DNA) 01/20/2027 01/21/2024, Colorectal Cancer Screening 01/20/2027 Prostate Cancer Screening Discussion 10/03/202709/07 RSV Vaccine (1 - 1-dose 75+ series) 2034 Insurance MMO [employer] Care Teams Party Plan Sales Director Relationship Specialty Start Date End Date Taras Pickett DO [address] [place], [place] [phone] PCP - General Internal Medicine 05/29/24
--- OUTSIDE RECORDS SUMMARY | 2025-04-16 06:46 | XMS_ITS | Encounter Summary ---
Author Organization [facility] Address [address] [place] [address] Care Team Providers Care Hedis Review Nurse Name Role Phone Taras Pickett DO Primary Care Provider [phone] Source Comments In the event this information is protected by the Federal Confidentiality of Alcohol and Drug AbusePatient Records regulations: The Federal rules restrict any use of the information to criminally investigate or prosecute any alcohol or drug abuse patient.[facility] Encounter Details Date Type Department Care Team (Late st Contact Info) Description 04/01/2025 Radiation Oncology Note Radiation Oncology [address] [place] [address] [place] [address] Adama Graf MD [address] [facility] [address] [place] [phone] Simulation Note Social History Tobacco Use Types Packs/Day Years [...] is lower risk 6 01/15/2023 Data from: https://www.neighborhoodatlas.medicine.[facility].edu/. Last address used for calculation Alicia Joel 01/15/2023 Sex and Gender Information Value Date Recorded Sex Assigned at Not on file Legal Sex Male 11:10 AM EST Gender Identity Not on file Sexual Orientation Choose not to disclose 2021 10:41 AM EST documented as of this encounter Progress Notes * Adama Graf MD - 04/01/2025 12:00 AM EDT COLE RAMOS [id number] 04/01/2025 [facility] Department of Radiation Oncology [facility] RADIATION ONCOLOGY SIMULATION NOTE DATE OF SIMULATION: 04/01/2025 MACHINE: [employer] Focus 500 Diagnosis: 185 (Prostate Gland) AREA:Prostate PATIENT POSITION: Supine CONTRAST: None PROTOCOL: None CONCURRENT THERAPY: None FIXATION DEVICE: UTS Stabilization device by [email or web address]. PROCEDURE: Patient was simulated in exaggerated dorsal lithotomy position. Serial images of the prostate were acquired using TRUS and reconstructed in 3D space. These images were imported into [employer] Prostate planning system where a plan was generated. ASSESSMENT/PLAN: Patient tolerated simulation procedure well. Electronically Signed Viktor Graf M.D. / QUEENIE 512:45 PM documented in this encounter Plan of Treatment Upcoming Encounters Date Type Department Care Team (Late st Contact Info) Description 04/16/2025 8:00 AM EDT Office Visit Radiation Oncology [address] [place] [address] [place] [address] Adama Graf MD [address] [place] [address] [place] [address] Seed Implant at The [facility] 05/07/2025 2:30 PM EDT Office Visit Radiation Oncology [facility] [place] [address] Adama Graf MD [address] [facility] [place] [address] Follow up 05/14/2025 8:00 AM EDT Appointment Radiology Pet CT [address] [facility] [place] [address] 05/26/2025 3:30 PM EDT Office Visit Radiation Oncology [address] [facility] [place] [address] Adama Graf MD [address] [facility] [place] [address] Follow up 07/16/2025 4:30 PM EST Office Visit Neurology [address] [place], [place] [phone] Tremayne Gibson DO [address] [place] [address] Return in about 6 months (around 07/10/2025). documented as of this encounter Visit Diagnoses Not on filedocumented in this encounter Care Teams Hedis Review Nurse Relationship Specialty Start Date End Date Taras Pickett DO [address] [place] [address] PCP - General Internal Medicine 05/29/24 documented as of this encounter
--- OUTSIDE RECORDS SUMMARY | 2025-04-16 06:47 | XMS_ITS | CCD ---
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 Name Role Phone Unavailable Primary Care [...] Care Provider TARAS WOODRUFF Primary Care Physician [phone] Taras Woodruff DO Primary Care Provider Taras Woodruff DO Attending Provider Cole Nash MD Attending Provider Tremayne Gibson DO Attending Provider Cole Nash Attending Unavailable Cole Nash Admitting Unavailable Taras Woodruff Primary Care Unavailable Tremayne Gibson Admitting Unavailable Tremayne Gibson Attending Unavailable Taras Woodruff DO Primary Care Provider [phone] Shabana Page APRN Attending Provider Taras Woodruff DO Attending Provider SATHISH SANDRA Attending Unavailable EYAL RAE Referring Unavailable BUTCH, EYAL Attending Unavailable EYAL RAE Referring Unavailable BLANCAZHEN Referring Unavailable BUTCH, EYAL Referring Unavailable AREN JONES Attending Unavailable Cole NASH Attending Unavailable Cole NASH Attending Unavailable CHARITY, Cole Contreras Attending Unavailable Cole NASH Attending Unavailable Cole NASH Attending Unavailable Cole NASH Attending Unavailable Cole NASH Attending Unavailable TARAS WOODRUFF Referring Unavailable Cole NASH Attending Unavailable Adama MARTÍNEZ Attending Unavailable Adama MARTÍNEZ Referring Unavailable TARAS WOODRUFF Primary Care Unavailable TREMAYNE GIBSON Attending Unavailable TREMAYNE GIBSON T Referring Unavailable PAIGE, TREMAYNE T Attending Unavailable TARAS WOODRUFF Primary Care Unavailable TREMAYNE GIBSON T Referring Unavailable Adama MARTÍNEZ Attending Unavailable [...] once daily. atorvastatin 80 mg oral tablet (20 sources) HMG-CoA Reductase Inhibitor Start: End: take [...] mg per tablet Indications: PD (Parkinson's disease) (FORMERLY [facility]) Take 1 tablet by mouth four times [...] by bushra th three times a day. cefdinir 300 mg oral capsule (1 source) Cephalosporin Antibacterial Start: take 1 capsule by mouth twice daily Cefdinir 300 mg capsule Active 300 MG PO Twice daily 16 02March 19, 2025 12:00am Complies with drug therapy 24 hr dilTIAZem hydrochloride 120 mg extended release oral capsule (20 sources) Calcium Channel Eugenio Start: take 1 capsule by mouth once daily [...] 10 mg oral tablet (13 sources) Start: take 1 tablet by mouth three times [...] Start: 08-10-2023 take 1 capsule by mo [facility] every eight hours Benzonatate 100 MG [...] 4 .2cm - 2023 Cancer of prostate (8 sources) Malignant neoplasm of prostate; Translations: [Malignant [...] [Dysphagia, unspecified] 01-11-2025 Episodic Other gastrointestinal disorders (1 source) Swallowing painful; Translations: [Dysphagia, unspecified] 03-19-2025 Episodic Other nervous system disorders (20 sources) [...] 01-09-2025 Unclassified (1 source) PD (Parkinson's disease) ([facility]); Translations: [PD (Parkinson's disease) (HCC)] Onset: 10-06-2021 [...] [DYSPHAGIA PHARYNGEAL PHASE] Onset: 11-01-2021 Episodic Other gastrointestinal disorders (2 sources) Slow transit constipation; Translations: [Slow transit constipation] Onset: 01-08-2025 Episodic Other gastrointestinal disorders (1 source) Dysphagia, unspecified; Translations: [Dysphagia, unspecified type] Onset: 01-08-2025 Episodic Other nervous system disorders (20 sources) Abnormal gait; Translations: [Unspecified abnormalities of gait and mobility] Onset: 10-14-2021 10-14-2021 Episodic Other upper respiratory disease (19 sources) Hypokinetic parkinsonian dysphonia; Translations: [Hypokinetic Parkinsonian [...] Test Name Value Interpretation Reference Range Facility [facility] 04-01-2025 CNOV Office Visit (RADTSA ) COLE RAMOS ([id number]) 1960 M Date Time Provider Department 04/01/25 9:00 AM Adama MARTÍNEZ During your visit today, we recorded the following information about you: Adama Martínez MD 2025 8:53 AM Signed UNIVERSAL PROTOCOL / SAFETY CHECKLIST Procedure to [...] procedure match the source document(s) (e.g. consent, HANDP, associated studies [imaging, pathology]) match the intended [...] been communicated to the patient or surrogate. Referring Provider: Adama MARTÍNEZ [[id number]] Allergies As of Date: 04/01/2025 (No Known Allergies) Date Reviewed: 01/09/2025 Reviewed by: Deepika Merino RN - Fully Assessed Primary Visit Diagnosis:Malignant neoplasm of prostate (HCC) [C61] Prescriptions as of 2025 - carbidopa-levodopa (SINEMET) 25-100 mg per tablet Take 1 tablet by mouth four times daily. - atorvastatin (LIPITOR) 80 mg tablet Take 80 mg by mouth once daily. - dilTIAZem CR (TIAZAC, TAZTIA XT) 120 mg 24 hr capsule Take 240 mg by mouth once daily. - aspirin 325 mg tablet Take 325 mg by mouth once daily. 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 Encounter Status:Closed by Adama MARTÍNEZ on 04/08/25 [facility] Olivia 03-31-2025 [facility] Telephone (RADEdenbaseA) COLE RAMOS ([id number]) 1960 M Date Time Provider Department 03/31/25 [...] Status:Closed by DEEPIKA MERINO on 03/31/25 Normal [facility] Office Visiton 03-18-2025 Follow-up visit [id number] Jurgen Ramos 1960 M Date Provider Department Center 03/18/2025 166-AREN JONES Family History Family Status - Relation Status Age at Mother Alive Father Level of Service:30529 [place] OFFICE/OUTPATIENT ESTABLISHED MOD MDM 30 MIN Reason for Visit and Comments: Pre-op Exam [933680] Atrial Fibrillation [80] Normal [facility] No Panel InformationOrdered By: Shabana Page on 03-13-2025 Quick Strep (POC) [facility] CNPNon 02-09-2025 CNPN Telephone (RADTSA) COLE RAMOS ([id number]) 1960 M Date Time Provider Department 02/09/25 Adama MARTÍNEZ [...] Encounter Status:Closed by DEEPIKA MERINO on 03/13/25 [facility] COLE RAMOS ([id number]) 1960 M Date Time Provider Department 01/14/25 Adama MARTÍNEZ [...] PM Signed Scheduling process started and LM for Simi [...] Messer Ariana E, RN 01/16/2025 10:02 AM Signed Cole returned our call and states the current [...] Status:Closed by JENNIFER SAL on 01/15/25 Normal [facility] 36on 01-12-2025 36 CARLOS Lou Cardiology Clinical Support Pool Caller: Unspecified (3 days ago, 1:41 PM) Previous Messages Patient Call (Newest Message First) View All Conversations on this Encounter Bertha Posada MA routed conversation to Cardiology Clinical Support Pool3 days ago Meg Wilkinson MA routed conversation to [facility] Cardiology Clinic Clinical Support Pool3 days ago Meg Wilkinson MA3 days ago RH Pili with [facility] would like to know if pt is pacemake dependent? Okay to leave message [phone] radiation nurses station. Spoke to [facility] advised them patient is not pacemaker dependent. Normal [place] 5085701-09-2025 36 Pili with [facility] would like to know if pt is pacemake dependent? Okay to leave message [phone] radiation nurses station. Normal [facility] CNOVon 01-09-2025 CNOV Office Visit (RADTSA ) COLE RAMOS ([id number]) 1960 [place] Date Time Provider Department 01/09/25 11:00 AM Adama MARTÍNEZ During your visit today, we [...] biopsies taken this area. Pathology revealed adenocarcinoma, [place] 6 (3+3) from L4 L3 L2 and [...] Neurocardiogenic syncope Neurocardiogenic syncope PD (Parkinson's disease) ([facility]) 12/2021 PAST SURGICAL HISTORY Procedure Laterality Date [...] risk adenocarcino (more content not included)... Normal [facility] Olivia 01-09-2025 [facility] Telephone (RADTSA) COLE RAMOS ([id number]) 1960 M Date Time Provider Department 01/09/25 Adama MARTÍNEZ During your visit today, we recorded the following information about you: Deepika Merino RN 01/09/2025 1:44 PM Signed I called and spoke to Meg at [phone], Dr. Santos's office, asking if Cole is pacemaker dependent. She is unsure but will [facility] with an update. NATHAN Gonzales Angela, RN 01/12/2025 1:19 PM Signed Call received from NASH at [facility] Cardiology. PT is NOT pacemaker dependent. [...] (H*10/18/2021 Encounter Status:Closed by JENNIFER SAL on [facility]17/[facility] (NRESAV ) COLE RAMOS ([id number]) 1960 M Date Time Provider Department 01/08/25 3:30 PM TREMAYNE GIBSON NRESAV During your visit today, we recorded the following information about you: Pulse Blood pressure 80/minute 110/78 Tremayne Gibson DO 01/11/2025 3:46 PM Signed [facility] - FOLLOW UP EVALUATION Recording using Video Blocks software for draft documentation of the visit was discussed with the patient/authorized ocean import representative; all questions welcomed and answered. Patient/authorized ocean import representative agreed to proceed Taras Woodruff DO [address] [facility] [address] Dear Taras Woodruff DO: I had the [...] He recalls a previous swallow study at [facility] and participated in speech therapy [...] CR (TIA (more content not included)... Normal [facility] Ambulatory Visit Summaryon 0 01-05-2025 Ambulatory Visit [...] with Cole NASH MD, URL When: Comments: referral to rad/onc Where: [facility] [address] [place] [address]- [phone] Someone Will Contact You Regarding These Appointments [facility] [place] External Ambulatory Referral, Other (needs to be [...] involve imagin (more content not included)... Normal [facility] Ambulatory Visit Summary Ambulatory Visit Summary COLE [...] Appointments Follow Up with Cole NASH MD, SALO When: Comments: referral to rad/onc Where: [facility] [address] [place] [address] [phone] Someone Will Contact You Regarding These Appointments [facility] [place] External Ambulatory Referral, Other (needs to be [...] involve imagin (more content not included)... Normal [facility] Urology Office/Clinic Noteon 01-05-2025 Urology Office/Clinic Note [...] [place] [employer]. [place] [facility] ,was advised imaging could only be done on 1.5T vs 3T machine. TRUS/bx 12/23/24 - Adeline 6 (3+3), GG1 x6/18 cores. Highest percent [...] Cole Contreras, URL [facility] [address], [place] [address]- [phone] Additional Instructions: referral to rad/onc Patient Education Prostate Cancer I, Keisha Moscoso, personally scribed for Dr. Nash on 01/05/2025 09:35:23. . Documentation recorded by the scribe, Keisha Moscoso, accurately reflects the services(s) I performed and [...] Not Given (more content not included)... Normal [facility] Comment on above: Result Comment: Elec tronically Signed By: Cole NASH MD\.br\Date and Time Signed: 01/05/25 09:37 EDT\.br\Electronically Co-Signed By: Keisha Moscoso\.jonny\Date and Time Co-Signed: 01/05/25 09:35 EDT No Panel InformationOrdered By: Cole Nash on 12-23-2024 Miscellaneous Pathology Test See comment [facility] Comment on above: See report. Scanned copy available in EMR. Pathology Request for Lab Co rpon 12-23-2024 Pathology Request for Lab Deb Normal [facility] Comment on above: Order Comment: PROST ATE BX Result Comment: See report. Scanned copy available in EMR. PERFORMED BY: [place] [address] PATHOLOGIST COMMERCIAL FRONT LOAD OPERATOR KARLA AGUILAR M.D. Performed By: #### P ATH TO [facility] #### [address] Ambulatory Visit Summaryon 0 11-24-2024 Ambulatory Visit [...] and bx Where: [facility] [address], [place] [address] [phone] Medications What How Much When Why Instructions New ciprofloxacin (Cipro 500 mg Tab) 1 Tablets By Mouth 2 times a day Elevated PSA Duration: 7 Days start 3 days prior to procedure Pickup at [facility]/pharmacy #[id number] Unchanged aspirin (aspirin 325 mg Oral EC [...] physician if questions or concerns Pharmacy Information [facility]/pharmacy #[id number]: [address] [place], [place] [id number] [phone] Allergies No Known Allergies Problems Ongoing - [...] including vitamins, herbs, eye drops, creams, and xsvv-zak-fatrttl medicines. ??? Any surgeries you have had. [...] medicines given (more content not included)... Normal [facility] Ambulatory Visit Summary Ambulatory Visit Summary COLE [...] Following Appointments Follow Up with CHARITY TAFOYA, SALO Bettencourt When: Comments: schedule prostate MRI and bx Where: [facility] [address], [place] [address]- [phone] Medications What How Much When Instructions Unchanged [...] including vitamins, herbs, eye drops, creams, and zcbj-wzw-lfyrszv medicines. ??? Any surgeries you have had. [...] , you should avoid MRI tests during th (more content not included)... Normal [facility] No Panel Informationon 11-13 Free Prostate Specific Antigen 0.51 ng/mL N/A [facility] Comment on above: Uma ECLIA methodol ogy. Prostate Specific Antigen Total 4.1 ng/mL Abnormal 0.0-4.0 [facility] Comment on above: Uma ECLIA methodol ogy.According to the [place] [employer], Serum PSAshould decrease and remain [...] PSA/Total PSA [Mass fraction] 12.4 % . [facility] Comment on above: The table below [...] for any other population of men.Performed at: [facility] [id number] Director: Liam Galvan PhD, Phone: [phone] 36on 10-16-[address] Rae. You saw this patient in Aug 2024 and reduced cardizem down to 120mg from 240mg because his BP was 98/70 in the office. He just had echo done at [facility] and electronic engineering technician said he had an episode of HR in the 130's-140's. BP is 138 systolic. Can he go back up to cardizem 240mg daily? Per Dr. Rae : we need to see what the event is.. have a device check to see what rhythm issue it was Spoke with patient and Aldair from [place]. We will do check in [facility] on 10/20/2024 at 10am. Normal [facility] Office Visiton 09-02-2024 Follow-up visit [id number] Jurgen Ramos S 1960 M Date Provider Department Center 09/02/[address] [facility] No family history on file Level of Service:91533 [place] OFFICE/OUTPATIENT ESTABLISHED LOW MDM 20 MIN Normal [facility] 36on 07-10-2024 36 Regarding labs from 06/24/2024: JEROMY Marquez MA Hey Sarah! Can you let patient know I reviewed [...] hesitant to make a med change in Jul, as there are lots of things going on for him. Normal [facility] Orders Onlyon 07-02-2024 Orders Only [id number] Jurgen Ramos farideh S 1960 M Date Provider Department Center 07/02/[address] [place] [address] SATHISH HVC CARD [facility] No family history on file Normal [facility] CNOVon 05-29-2024 CNOV Office Visit (NRESAV ) COLE RAMOS ([id number]) 1960 M Date Time Provider Department 05/29/24 1:00 PM TREMAYNE GIBSON NRESAV During your visit today, we recorded the following information about you: Pulse Blood pressure 74/minute 141/85 Tremayne Gibson DO 05/29/2024 1:39 PM Signed [facility] - FOLLOW UP EVALUATION Taras Woodruff DO [address] [facility] [address] Dear Taras Woodruff DO: I had the [...] Examination: G (more content not included)... [facility] Telephone (FVPRAD) COLE RAMOS ([id number]) 1960 M Date Time Provider Department 05/03/24 MARI ROSAS FVPRAD During your visit today, we recorded the following information about you: Mari Rosas, 05/03/2024 12:42 PM Signed Patient called stating he was out of town and needed 10 pills of Sinemet to [facility] in [place]. Refill ordered Allergies As of Date: 05/03/2024 (No Known Allergies) Date Reviewed: 11/15/2023 Reviewed by: Ana Hart LPN - Fully Assessed Visit Diagnosis:PD (Parkinson's disease) ([facility]) [G20.A1] Order(s):carbidopa-levo dopa (SINEMET) 25-100 mg per [...] peripheral neuropathy [G60.9] 10/06/2021 PD (Parkinson's disease) ([facility]) [G20.A1] 10/06/2021 Hypokinetic Parkinsonian dysphonia ([facility]) [G20.A*10/13/2021 Pharyngeal dysphagia [R13.13] 10/13/2021 Abnormality of [...] Encounter Status:Closed by MARI ROSAS on 05/03/24 Normal [facility] 37on 04-16-2024 37 Start taking lipitor 40 mg daily in the evening or prior to bed. Call the office if any muscle aches or concerns. Have follow up labs drawn in 2-3 months (June or July). Must be fasting labs. Normal [facility] Office Visiton 04-16-2024 Follow-up visit [id number] Jurgen Ramos S 1960 M Date Provider Department Center [id number] family history on file Level of Service:52475 [place] OFFICE/OUTPATIENT ESTABLISHED MOD MDM 30 MIN Normal [facility] CBC AUTO DIFFon 10-03-2022 BASO # 0.0 103/ul Normal 0.0-0.1 [facility] Comment on above: Performed By: #### C BC #### [facility] [address] [place] [address] Dr. Rosalio Burks Basophils/100 WBC (Bld) 0.3 % Normal 0.2-2.0 [facility] Comment on above: Performed By: #### C BC #### [facility] [address] [place] [address] Dr. Rosalio Burks EO # 0.1 103/ul Normal 0.0-0.7 [facility] Comment on above: Performed By: #### C BC #### [facility] [address] [place] [address] [address] Rosalio Burks Eosinophils/100 WBC (Bld) 1.0 % Normal 0.9-7.0 [facility] Comment on above: Performed By: #### C BC #### [facility] [address] [place] [address] Dr. Rosalio Burks Erythrocyte distribution width (RBC) [Ratio] 11.7 % Normal 11.0-15.0 [facility] Comment on above: Performed By: #### C BC #### [facility] [address] [place] [address] Dr. Rosalio Burks Hematocrit (Bld) [Volume fraction] 43.2 % Normal 42.0-54.0 [facility] Comment on above: Performed By: #### C BC #### [facility] [address] [place] [address] Dr. Rosalio Burks Hemoglobin (Bld) [Mass/Vol] 15.0 g/dL Normal 14.0-18.0 [facility] Comment on above: Performed By: #### C BC #### [facility] [address] [place] [address] Dr. Rosalio Burks IG # 0.02 10e3/ul Normal 0.00-0.03 [facility] Comment on above: Performed By: #### C BC #### [facility] [address] [place] [address] Dr. Rosalio Burks IG % 0.3 % Normal 0.0-0.5 [facility] Comment on above: Performed By: #### C BC #### [facility] [address] [place] [address] Dr. Rosalio Burks LYMPH # 1.5 103/ul Normal 1.2-3.8 [facility] Comment on above: Performed By: #### C BC #### [facility] [address] [place] [address] Dr. Rosalio Burks Lymphocytes/100 WBC (Bld) 23.3 % Normal 20.5-60.0 [facility] Comment on above: Performed By: #### C BC #### [facility] [address] [place] [address] Dr. Rosalio Burks MANUAL DIFF REQ NO Normal [facility] Comment on above: Performed By: #### C BC #### [facility] [address] [place] [address] Dr. Rosalio Burks MCH (RBC) [Entitic mass] 31.9 pg Normal 25.9-34.0 [facility] Comment on above: Performed By: #### C BC #### [facility] [address] [place] [address] Dr. Rosalio Burks MCHC (RBC) [Mass/Vol] 34.7 g/dL Normal 29.9-35.2 [facility] Comment on above: Performed By: #### C BC #### [facility] [address] [address] [address] Rosalio Burks MCV (RBC) [Entitic vol] 91.9 fL Normal 80.0-94.0 [facility] Comment on above: Performed By: #### C BC #### [facility] [address] [address] [address] Rosalio Burks MONO # 0.6 103/ul Normal 0.3-0.8 [facility] Comment on above: Performed By: #### C BC #### [facility] [address] [place] [address] Dr. Rosalio Burks Monocytes/100 WBC (Bld) 10.1 % Normal 1.7-12.0 [facility] Comment on above: Performed By: #### C BC #### [facility] [address] [place] [address] Dr. Rosalio Burks NEUT # 4.0 103/ul Normal 1.4-6.5 [facility] Comment on above: Performed By: #### C BC #### [facility] [address] [place] [address] Dr. Rosalio Burks Neutrophils/100 WBC (Bld) 65.0 % Normal 43.0-75.0 [facility] Comment on above: Performed By: #### C BC #### [facility] [address] [place] [address] Dr. Rosalio Burks Platelet mean volume (Bld) [Entitic vol] 10.3 fL Normal 9.5-13.5 [facility] Comment on above: Performed By: #### C BC #### [facility] [address] [place] [address] Dr. Rosalio Burks PLT 268 103/ul Normal 150-450 [facility] Comment on above: Performed By: #### C BC #### [facility] [address] [place] [address] Dr. Rosalio Burks RBC 4.70 106/ul Normal 4.70-6.10 [facility] Comment on above: Performed By: #### C BC #### [facility] [address] [place], [place] [address] Dr. Rosalio Burks WBC 6.2 103/ul Normal 4.0-11.0 [facility] Comment on above: Performed By: #### C #### [facility] [address] [place], [place] [address] Dr. Rosalio Burks Complete Blood Count and Dif gerald 10-03-2022 Anisocytosis Ql (Bld) [employer] Other Basophilic stippling LM Ql (Bld) [employer] Other RBC morphology finding Nom (Bld) [employer] Other Complete Blood Count and Diff [employer] Other Comprehensive Metabolic Pane laura 10-03-2022 Albumin [Mass/Vol] 3.160892 g/dL 3.4-5.0 g/dL [employer] Other Calcium [Mass/Vol] 9.5726387 mg/dL 8.5-10 .1 mg/dL [employer] Other CO2 [Moles/Vol] 30.95252647 mmol/L 21.0-3 2.0 mmol/L [employer] Other Creatinine [Mass/Vol] 1.94834586 mg/dL 0. 70-1.30 mg/dL [employer] Other Potassium [Moles/Vol] 4.46959947 mmol/L 3 .5-5.1 mmol/L [employer] Other Protein [Mass/Vol] 7.957810 g/dL 6.4-8.2 g/dL [employer] Other Urea nitrogen [Mass/Vol] 17.0741563 mg/dL 7.0-18.0 mg/dL [employer] Other Comprehensive Metabolic Panel see note [employer] Other Comprehensive Metabolic Panel 141 mmol/L 136-145 mmol/L [employer] Other Comprehensive Metabolic Panel 83 mg/dL 74-106 mg/dL [employer] [facility] [employer] Other Comprehensive Metabolic Panel >60 mL/min/1.73m2 >=60 mL/min/1.73 m2 [employer] [facility] [employer] Other Comprehensive Metabolic Panel 0.3 mg/dL 0.2-1.0 mg/dL [employer] Other Comprehensive Metabolic Panel 3.4 g/dL [employer] Other LIPID PROFILEon 10-03-2022 CHOL-HDL RATIO NORM SEE BELOW Normal [facility] Comment on above: Result Comment: 3.3 - 4.4 LOW RISK 4.4 - 7.1 AVERAGE RISK 7.1 - 11.0 MODERATE RISK >11.0 HIGH RISK Performed By: #### C MP, LIPID #### [facility] [address] [address] [address] Rosalio Burks Cholesterol [Mass/Vol] 202 mg/dL Critically high <=200 mg/dL [facility] Comment on above: Performed By: #### C MP, LIPID #### [facility] [address] [address] [address] Rosalio Burks Cholesterol in HDL [Mass/Vol] 33 mg/dL Critically low 40-60 mg/dL [facility] Comment on above: Performed By: #### C MP, LIPID #### [facility] [address] [address] [address] Rosalio Burks Cholesterol in LDL [Mass/Vol] 106.4 mg/dL Normal [facility] Comment on above: Performed By: #### C MP, LIPID #### [facility] [address] [address] [address] Rosalio Burks Cholesterol.total/Cho lesterol in HDL [Mass ratio] 6.1 {ratio} [facility] Comment on above: Performed By: #### C MP, LIPID #### [facility] [address] [address] [address] Rosalio Burks HDL NORMAL > or = 60 mg/dl - LO W CARDIOVASCULAR RISK <40 mg/dl - HIGH CARDIOVASCULAR RISK Normal [facility] Comment on above: Performed By: #### C MP, LIPID #### [facility] [address] [place], [place] [address] Dr. Rosalio Burks LDL CALC NORMAL SEE BELOW Normal [facility] Comment on above: Result Comment: <100 mg/dl OPTIMAL 100 - 129 mg/dl NEAR OR ABOVE OPTIMAL 130 - 159 mg/dl BORDERLINE HIGH 160 - 189 mg/dl HIGH >190 mg/dl VERY HIGH Performed By: #### C MP, LIPID #### [facility] [address] [address] [address] Rosalio Burks Triglyceride [Mass/Vol] 313 mg/dL Critically high <=150 mg/dL [facility] Comment on above: Performed By: #### C MP, LIPID #### [facility] [address] [address] [address] Rosalio Burks VLDL CALC 62.6 mg/dL Normal [facility] Comment on above: Performed By: #### C MP, LIPID #### [facility] [address] [address] [address] Rosalio Burks Lipid Panelon 10-03-2022 Lipid Panel > or = 60 mg/dl - LO W CARDIOVASCULAR RISK <40 mg/dl - HIGH CARDIOVASCULAR RISK [facility] Other Lipid Panel SEE BELOW [facility] Other Lipid Panel 106.4 mg/dL [facility] Other Lipid Panel 62.6 mg/dL [facility] Other PROF 14(COMP METB)on 023 Albumin [Mass/Vol] 3.9 g/dL Normal 3.4-5.0 [facility] [place] Comment on above: Performed By: #### C MP, LIPID #### [facility] [address] [address] [address] Rosalio Burks Albumin/Globulin [Mass ratio] 1.1 {ratio} [facility] Comment on above: Performed By: #### C MP, LIPID #### [facility] [id number] Rosalio Burks ALP [Catalytic activity/Vol] 108 U/L 46-116 U/L [facility] Comment on above: Performed By: #### C MP, LIPID #### [facility] [address] [place] [address] Dr. Rosalio Burks ALT [Catalytic activity/Vol] 15 U/L Critically low 16-63 U/L [facility] Comment on above: Performed By: #### C MP, LIPID #### [facility] [address] [place] [address] Dr. Rosalio Burks Anion gap [Moles/Vol] 10.4 mmol/L [facility] Comment on above: Performed By: #### C MP, LIPID #### [facility] [address] [place] [address] Dr. Rosalio Burks AST [Catalytic activity/Vol] 15 U/L 15-37 U/L [facility] Comment on above: Performed By: #### C MP, LIPID #### [facility] [address] [place] [address] Dr. Rosalio Burks Bilirubin [Mass/Vol] 0.3 mg/dL Normal 0.2-1.0 [facility] Comment on above: Performed By: #### C MP, LIPID #### [facility] [address] [place] [address] Dr. Rosalio Burks Calcium [Mass/Vol] 9.0 mg/dL Normal 8.5-10.1 [facility] [place] Comment on above: Performed By: #### C MP, LIPID #### [facility] [address] [place] [address] Dr. Rosalio Burks Chloride [Moles/Vol] 104 mmol/L 98-107 mmol/L [facility] Comment on above: Performed By: #### C MP, LIPID #### [facility] [address] [place] [address] Dr. Rosalio Burks CO2 [Moles/Vol] 30.7 mmol/L Normal 21.0-32.0 [facility] Comment on above: Performed By: #### C MP, LIPID #### [facility] [address] [place] [address] Dr. Rosalio Burks Creatinine [Mass/Vol] 1.09 mg/dL Normal 0.70-1.30 [facility] Comment on above: Performed By: #### C MP, LIPID #### [facility] [address] [place] [address] Dr. Rosalio Burks EGFR-AF ALGERIAN >60 Normal >=60 [facility] Comment on above: Performed By: #### C MP, LIPID #### [facility] [address] [place] [address] Dr. Rosalio Bukrs EGFR-NON AF ALGERIAN >60 Normal >=60 [facility] Comment on above: Performed By: #### C MP, LIPID #### [facility] [address] [place] [address] Dr. Rosalio Burks Globulin (S) [Mass/Vol] 3.4 g/dL Normal [facility] Comment on above: Performed By: #### C MP, LIPID #### [facility] [address] [place] [address] Dr. Rosalio Burks Glucose [Mass/Vol] 83 mg/dL Normal 74-106 [facility] [place] Comment on above: Performed By: #### C MP, LIPID #### [facility] [address] [place] [address] Dr. Rosalio Burks Potassium [Moles/Vol] 4.1 mmol/L Normal 3.5-5.1 [facility] Comment on above: Performed By: #### C MP, LIPID #### [facility] [address] [place] [address] Dr. Rosalio Burks Protein [Mass/Vol] 7.3 g/dL Normal 6.4-8.2 [facility] Comment on above: Performed By: #### C MP, LIPID #### [facility] [address] [place] [address] Dr. Rosalio Burks Sodium [Moles/Vol] 141 mmol/L Normal 136-145 [facility] Comment on above: Performed By: #### C MP, LIPID #### [facility] [address] [place] [address] Dr. Rosalio Burks Urea nitrogen [Mass/Vol] 17.0 mg/dL Normal 7.0-18.0 [facility] Comment on above: Performed By: #### C MP, LIPID #### [facility] [address] [place], [place] [address] Dr. Rosalio Burks Urea nitrogen/Creatinine [Mass ratio] 15.6 mg/mg [facility] Comment on above: Performed By: #### C MP, LIPID #### [facility] [address] [place], [place] [address] Dr. Rosalio Burks XR MODIFIED BARIUM SWALLOWon [...] by: MAMIE HOLDER Date: 2021-11-01 09:50 Normal [facility] Vital Signs Date Time Vital Sign Value Performing Clinician Facility 03-19-2025 11:06-040 Body height 198.12 cm [facility] Work Phone: [facility] 03-19-2025 11:06-0400 Body mass index (BMI) [Ratio] 21.9 kg/m2 [facility] DO Work Phone: [facility] 03-19-2025 11:06-040 Body temperature 97.3 [degF] Taras Leostream DO Work Phone: [facility] 03-19-2025 11:06-040 Body weight 85.95 kg [facility] DO Work Phone: [facility] 03-19-2025 11:06-0400 Diastolic blood pressure 88 mm[Hg] [facility] Work Phone: [facility] 03-19-2025 11:06-0400 Heart rate 110 /min Taras Ball DO Work Phone: [facility] 03-19-2025 11:06-0400 Respiratory rate 12 /min Taras Ball DO Work Phone: [facility] 03-19-2025 11:06-0400 Systolic blood pressure 127 mm[Hg] Taras Ball DO Work Phone: [facility] 03-13-2025 10:54-0400 Body height 198.12 cm Taras Ball DO Work Phone: [facility] 03-13-2025 10:54-0400 Body mass index (BMI) [Ratio] 22.1 kg/m2 Taras Ball DO Work Phone: [facility] 03-13-2025 10:54-0400 Body temperature 99 [degF] Taras Ball DO Work Phone: [facility] 03-13-2025 10:54-0400 Body weight 87.14 kg Taras Ball DO Work Phone: [facility] 03-13-2025 10:54-0400 Diastolic blood pressure 76 mm[Hg] Taras Ball DO Work Phone: [facility] 03-13-2025 10:54-0400 Heart rate 115 /min Taras Ball DO Work Phone: [facility] 03-13-2025 10:54-0400 Respiratory rate 18 /min Taras Ball DO Work Phone: [facility] 03-13-2025 10:54-0400 SaO2% (BldA) [Mass fraction] 98 % Taras Ball DO Work Phone: [facility] 03-13-2025 10:54-0400 Systolic blood pressure 112 mm[Hg] Taras Ball DO Work Phone: [facility] 01-09-2025 11:04-0400 Body height 195.6 cm ZAK Martínez MD Work Phone: [facility] 01-09-2025 11:04-0400 Body mass index (BMI) [Ratio] 23.14 kg/m2 ZAK Martínez MD Work Phone: [facility] 01-09-2025 11:04-0400 Body temperature 98.1 [degF] ZAK Martínez MD Work Phone: [facility] 01-09-2025 11:04-0400 Body weight 88.5 kg ZAK Martínez MD Work Phone: [facility] 01-09-2025 11:04-0400 Diastolic blood pressure 84 mm[Hg] ZAK Martínez MD Work Phone: [facility] 01-09-2025 11:04-0400 Heart rate 94 /min ZAK Martínez MD Work Phone: [facility] 01-09-2025 11:04-0400 Respiratory rate 16 /min ZAK Martínez MD Work Phone: [facility] 01-09-2025 11:04-0400 SaO2% (BldA) [Mass fraction] 97 % ZAK Martínez MD Work Phone: [facility] 01-09-2025 11:04-0400 Systolic blood pressure 120 mm[Hg] ZAK Martínez MD Work Phone: [facility] 01-08-2025 15:36-0400 Diastolic blood pressure 78 mm[Hg] Tremayne Gibson DO Work Phone: [facility] 01-08-2025 15:36-0400 Heart rate 80 /min Tremayne Gibson DO Work Phone: [facility] 01-08-2025 15:36-0400 Systolic blood pressure 110 mm[Hg] Tremayne Gibson DO Work Phone: [facility] 10-06-2024 09:25-0500 Body height 198.12 cm [facility] 10-06-2024 09:25-0500 Body mass index (BMI) [Ratio] 22.8 kg/m2 [facility] 10-06-2024 09:25-0500 Body temperature 97.4 [degF] [facility] 10-06-2024 09:25-0500 Body weight 89.58 kg [facility] 10-06-2024 09:25-0500 Diastolic blood pressure 79 mm[Hg] [facility] 10-06-2024 09:25-0500 Heart rate 94 /min [facility] 10-06-2024 09:25-0500 Respiratory rate 16 /min [facility] 10-06-2024 09:25-0500 SaO2% (BldA) [Mass fraction] 98 % [facility] 10-06-2024 09:25-0500 Systolic blood pressure 111 mm[Hg] [facility] 05-29-2024 13:02-0400 Diastolic blood pressure 85 mm[Hg] Tremayne Gibson DO Work Phone: [facility] 05-29-2024 13:02-0400 Heart rate 74 /min Tremayne Gibson DO Work Phone: [facility] 05-29-2024 13:02-0400 Systolic blood pressure 141 mm[Hg] Tremayne Gibson DO Work Phone: [facility] 11-15-2023 10:54-0400 Diastolic blood pressure 75 mm[Hg] Tremayne Gibson DO Work Phone: [facility] 11-15-2023 10:54-0400 Heart rate 106 /min Tremayne Gibson DO Work Phone: [facility] 11-15-2023 10:54-0400 SaO2% (BldA) [Mass fraction] 97 % Tremayne Gibson DO Work Phone: [facility] 11-15-2023 10:54-0400 Systolic blood pressure 141 mm[Hg] Tremayne Gibson DO Work Phone: [facility] 08-16-2023 10:15-0500 Body height 190.5 cm Taras Ball Other [facility] Other 08-16-2023 10:15-0500 Body mass index (BMI) [Ratio] 22.3 kg/m2 Taras Ball Other [facility] Other 08-16-2023 10:15-0500 Body weight 80.92 kg Taras Ball Other [facility] Other 08-16-2023 10:15-0500 Diastolic blood pressure 70 mm[Hg] Taras Ball Other [facility] Other 08-16-2023 10:15-0500 Respiratory rate 12 /min Taras Ball Other [facility] Other 08-16-2023 10:15-0500 Systolic blood pressure 109 mm[Hg] Taras Ball Other [facility] Other 05-10-2023 10:46-0400 Diastolic blood pressure 87 mm[Hg] Tremayne Gibson DO Work Phone: [facility] 05-10-2023 10:46-0400 Heart rate 85 /min Tremayne Gibson DO Work Phone: [facility] 05-10-2023 10:46-0400 Systolic blood pressure 125 mm[Hg] Tremayne Gibson DO Work Phone: [facility] 03-13-2023 13:30-0400 Body height 190.5 cm Taras Ball Other [facility] Other 03-13-2023 13:30-0400 Body mass index (BMI) [Ratio] 24.42 kg/m2 Taras Ball Other [facility] Other 03-13-2023 13:30-0400 Body weight 88.63 kg Taras Ball Other [facility] Other 03-13-2023 13:30-0400 Diastolic blood pressure 78 mm[Hg] Taras Ball Other [facility] Other 03-13-2023 13:30-0400 Respiratory rate 12 /min Taras Ball Other [facility] Other 03-13-2023 13:30-0400 Systolic blood pressure 111 mm[Hg] Taras Ball Other [facility] Other 10-03-2022 14:00-0500 Body height 190.5 cm Taras Ball Other [facility] Other 10-03-2022 14:00-0500 Body mass index (BMI) [Ratio] 25.32 kg/m2 Taras Ball Other [facility] Other 10-03-2022 14:00-0500 Body weight 91.9 kg Taras Ball Other [facility] Other 10-03-2022 14:00-0500 Diastolic blood pressure 82 mm[Hg] Taras Ball Other [facility] Other 10-03-2022 14:00-0500 Respiratory rate 12 /min Taras Ball Other [facility] Other 10-03-2022 14:00-0500 Systolic blood pressure 118 mm[Hg] Taras Ball Other [facility] Other 09-19-2022 12:40-0500 Body height 190.5 cm Tabby Lindo Other [facility] Other 09-19-2022 12:40-0500 Body mass index (BMI) [Ratio] 26.25 kg/m2 Tabby Lindo Other [facility] Other 09-19-2022 12:40-0500 Body temperature 98.2 [degF] Tabby Lindo Other [facility] Other 09-19-2022 12:40-0500 Body weight 95.26 kg Tabby Lindo Other [facility] Other 09-19-2022 12:40-0500 Respiratory rate 18 /min Tabby Lindo Other [facility] Other 09-19-2022 12:40-0500 SaO2% (BldA) [Mass fraction] 96 % Tabby Lindo Other [facility] Other 09-08-2022 07:53-0500 Body height 195.6 cm Tremayne Arevalowarrenottoniel DO Work Phone: [facility] 09-08-2022 07:53-0500 Body weight 93.58 kg Tremayne Arevalokendrikcclarencesavannaottoniel DO Work Phone: [facility] 09-08-2022 07:53-0500 Diastolic blood pressure 93 mm[Hg] Tremayne Gibson DO Work Phone: [facility] 09-08-2022 07:53-0500 Heart rate 82 /min Tremayne Paige DO Work Phone: [facility] 09-08-2022 07:53-0500 SaO2% (BldA) [Mass fraction] 94 % Tremayne Paige DO Work Phone: [facility] 09-08-2022 07:53-0500 Systolic blood pressure 146 mm[Hg] Tremayne Gibson DO Work Phone: [facility] 12-29-2021 13:46-0400 Diastolic blood pressure 82 mm[Hg] Tremayne Arevalodaniel DO Work Phone: [facility] 12-29-2021 13:46-0400 Heart rate 99 /min Tremayne Arevalokendrickclarencesavannaottoniel DO Work Phone: [facility] 12-29-2021 13:46-0400 Systolic blood pressure 114 mm[Hg] Trmeayne Coylesavannaottoniel DO Work Phone: [facility] 11-10-2021 08:00-0400 Diastolic blood pressure 89 mm[Hg] Hero Cuellar PT Work Phone: [facility] 11-10-2021 08:00-0400 Heart rate 83 /min Hero Cuellar PT Work Phone: [facility] 11-10-2021 08:00-0400 Systolic blood pressure 134 mm[Hg] Hero Cuellar PT Work Phone: [facility] Encounters Encounter Date Encounter Type Care Provider Facility Start: 05-18-2025 ambulatory Cole Guilleni ty:[facility] Start: 04-23-2025 ambulatory Cole Guilleni ty:[facility] Start: 04-16-2025 ambulatory Cole Huddleston ty:[id number] Start: 04-10-2025 End: 04-10-2025 Patient encounter procedure [facility] Provider [facility] Department Start: 04-07-2025 End: 04-09-2025 Patient encounter procedure Adama Martínez MD Work Phone: Radiation Oncology Start: 04-07-2025 End: 04-09-2025 Radiation Oncology Note Adama Martínez MD Work Phone: Radiation Oncology Comment on above: Treatment Planning Start: 04-01-2025 End: 04-03-2025 Radiation Oncology Note Adama Martínez MD Work Phone: Radiation Oncology Comment on above: Simulation Note Start: 04-01-2025 End: 04-03-2025 Patient encounter procedure Adama Martínez MD Work Phone: Radiation Oncology Comment on above: Malignant neoplasm o f prostate (HCC) (Primary Dx) Start: 04-01-2025 End: 04-02-2025 ambulatory Adama MARTÍNEZ Facility:[facility] Start: 03-31-2025 End: 03-31-2025 Telephone encounter G Viktor Martínez MD Work Phone: Radiation Oncology Comment on above: Appointment Start: 03-30-2025 ambulatory Cole Huddleston ty:[facility] Start: 03-19-2025 End: 03-19-2025 ambulatory Taras Woodruff DO Work Phone: [facility] Work Phone: Start: 03-19-2025 End: 03-19-2025 Patient encounter procedure Taras Woodruff DO -[facility] Work Phone: Start: 03-18-2025 End: 03-19-2025 ambulatory [facility] Start: 03-18-2025 End: 03-19-2025 Encounter for other preprocedural examination [facility] Start: 03-13-2025 End: 03-13-2025 ambulatory Taras Woodruff DO Work Phone: [facility] Work Phone: Start: 03-13-2025 End: 03-13-2025 Patient encounter procedure Shabana Palomino [facility] Work Phone: Start: 03-12-2025 ambulatory Cole Huddleston ty:[facility] Start: 02-24-2025 End: 02-24-2025 ambulatory EYAL RAE [facility] Start: 02-20-2025 ambulatory ZHEN RIOS [facility] Start: 02-04-2025 End: 02-04-2025 Patient encounter procedure Tremayne Gibson DO -[facility] [place] Work Phone: Start: 02-04-2025 End: 02-04-2025 ambulatory Taras Woodruff DO Work Phone: [facility] Work Phone: Start: 01-16-2025 End: 01-16-2025 Patient encounter procedure Ccf Provider [facility] Department Start: 01-14-2025 End: 01-15-2025 Telephone encounter [...] Start: 01-09-2025 End: 01-09-2025 ambulatory Adama MARTÍNEZ Facility:[facility] Start: 01-08-2025 End: 01-08-2025 Office outpatient visit 25 minutes Tremayne Gibson DO Work Phone: Neurology Comment on above: Parkinson's disease without dyskinesia or fluctuating manifestations (HCC) (Primary Dx); Slow transit constipation; Dysphagia, unspecified type Start: 01-08-2025 End: 01-08-2025 ambulatory TREMAYNE GIBSON Facility:[facility] Start: 01-05-2025 End: 01-05-2025 ambulatory Cole NASH Facility:[facility] Start: 01-05-2025 End: 01-05-2025 Patient encounter procedure Cole NASH [facility] Start: 12-23-2024 End: 12-23-2024 ambulatory Cole Nash Facility:[facility] Start: 12-23-2024 End: 12-23-2024 Departed Referred Cole Nash MD -[facility] [place] Work Phone: Start: 12-23-2024 End: 12-23-2024 ambulatory Cole NASH Facility:[id number] Start: 12-11-2024 ambulatory EYAL [facility] Start: 11-24-2024 End: 11-24-2024 ambulatory Cole NASH Facility:[facility] Start: 11-17-2024 ambulatory Cole NASH Facility :[facility] Start: 11-13-2024 Non-patient / Non-visit Taras thao DO -[facility] Work Phone: Start: 10-06-2024 End: 10-06-2024 ambulatory [facility] Work Phone: Start: 10-06-2024 End: 10-06-2024 Encounter for general adult medical examination without abnormal findings [facility] Start: 10-06-2024 End: 10-06-2024 Patient encounter procedure [facility] Work Phone: Start: 09-02-2024 End: 09-03-2024 Refill Tremayne Gibson DO Work Phone: Neurological Religion Comment on above: Refill Request Start: 08-15-2024 End: 08-15-2024 ambulatory No Pcp [facility] Start: 08-15-2024 End: 08-15-2024 Patient encounter procedure No Pcp [facility] Start: 08-04-2024 End: 08-04-2024 Refill Tremayne Gibson DO Work Phone: Neurological Religion Comment on above: Refill Request Start: 05-29-2024 End: 05-29-2024 ambulatory TREMAYNE GIBSON Facility:[facility] Start: 05-29-2024 End: 05-29-2024 Office outpatient visit 10 minutes Tremayne Gibson DO Work Phone: Neurology Comment on above: PD (Parkinson's dise ase) ([facility]) (Primary Dx); Sialorrhea; RBD (REM behavioral disorder) Start: 05-03-2024 End: 05-03-2024 Orders Only Mari Narayan DO Work Phone: Neurology Comment on above: PD (Parkinson's dise ase) (HCC) Start: 04-16-2024 End: 04-16-2024 ambulatory [facility] Start: 01-30-2024 Refill Tremayne florentino DO Work Phone: Neurological Religion Comment on above: Refill Request Start: 11-15-2023 End: 11-15-2023 Office outpatient visit 15 minutes Tremayne Gibson DO Work Phone: Neurology Comment on above: PD (Parkinson's dise ase) ([facility]) (Primary Dx); Sialorrhea; RBD (REM behavioral disorder) Start: 08-16-2023 End: 08-16-2023 ambulatory Taras Ball Other [facility] Other Start: 08-16-2023 Office outpatient vi sit 15 minutes Taras Ball [facility] Start: 08-10-2023 End: 08-10-2023 ambulatory Taras Ball Other [facility] Other Start: 08-10-2023 Office outpatient vi sit 15 minutes Taras Ball [facility] Start: 05-10-2023 End: 05-10-2023 Office outpatient visit 15 minutes Tremayne Gibson DO Work Phone: Neurology Comment on above: PD (Parkinson's dise ase) Start: 04-06-2023 Telephone encounter Tremayne fox DO Work Phone: Neurology Comment on above: Forms Start: 03-13-2023 End: 03-13-2023 ambulatory Taras Ball Other [facility] Other Start: 03-13-2023 Office outpatient vi sit 25 minutes Taras Ball [facility] Start: 11-22-2022 ambulatory Tremayne florentino DO Work Phone: Neurology Comment on above: neuropathy analysis Start: 10-09-2022 End: 10-09-2022 ambulatory Taras Woodruff Other [facility] Other Start: 10-09-2022 Telephone encounter Taras Woodruff [facility] Start: 10-08-2022 Encounter for genera l adult medical examination without abnormal findings DR TARAS WOODRUFF [facility] Start: 10-03-2022 End: 10-04-[address] TARAS WOODRUFF Facility:[facility] Start: 10-03-2022 End: 10-04-2022 Encounter for general adult medical examination without abnormal findings DR TARAS WOODRUFF Facility:[facility] Start: 10-03-2022 Periodic preventive med est patient 40-64yrs Taras Woodruff [facility] Start: 09-19-2022 End: 09-19-2022 ambulatory Tabby Lindo Other [facility] Other Start: 09-19-2022 Office outpatient ne w 30 minutes Tabby Lindo [facility] Start: 09-08-2022 End: 09-08-2022 Office outpatient visit 15 minutes Tremayne Gibson DO Work Phone: Neurology Comment on above: PD (Parkinson's dise ase) (HCC) (Primary Dx); Neuropathy, peripheral, hereditary Start: 12-29-2021 End: 12-29-2021 Patient encounter procedure Tremayne Gibson DO Work Phone: Neurology Comment on above: PD (Parkinson's dise ase) (HCC) (Primary Dx) Start: 12-01-2021 End: 12-01-2021 ambulatory Janice Leon CCC-INSTRUMENT AND ELECTRICAL TECHNICIAN [facility] Speech Therapy Comment on above: Hypokinetic Parkinso nian dysphonia (HCC) (Primary Dx); 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); Pharyngeal dysphagia; PD (Parkinson's disease) (HCC) Start: 11-14-2021 ambulatory Tremayne florentino DO Work Phone: Neurology Comment on above: 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 Start: 11-10-2021 End: 11-10-2021 ambulatory Hero Cuellar PT Work Phone: [facility] Physical Therapy Comment on above: Abnormality of gait (Primary Dx); PD (Parkinson's disease) (HCC) Hypokinetic Parkinso nian dysphonia (HCC) (Primary Dx); 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); Pharyngeal dysphagia; PD (Parkinson's disease) (HCC) Start: 11-07-2021 Telephone encounter Tremayne fox DO Work Phone: Neurological Religion Comment on above: Results (MBS) Start: 11-03-2021 End: 11-03-2021 ambulatory Janice Leon CCC-INSTRUMENT AND ELECTRICAL TECHNICIAN [facility] Speech Therapy Comment on above: Hypokinetic Parkinso nian dysphonia (HCC) (Primary Dx); 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); Pharyngeal dysphagia; PD (Parkinson's disease) (HCC) Start: 11-01-2021 End: 11-02-[address] DOCTOR REED Facility: Start: 01-11-2021 Adult health examination William Woodruff Other [employer] Other Procedures Date Procedure Procedure Detail Performing Clinician Start: 03-13-2025 Quick Strep (POC) William Woodruff DO Work Phone: Start: 12-23-2024 Ultrasonography guid ed transrectal cryoablation of prostate Cole NASH Comment on above: TRUS/bx Start: 10-03-2022 End: 10-03-[address] TARAS WOODRUFF Comment on above: Performed By: #### P [facility] #### [facility] Laboratory [address] [place] [address] Dr. Rosalio Burks Start: 12-26-2021 Adult depression scr eening assessment Tremayne Gibson DO Work Phone: Start: 12-08-2020 Inguinal herniorrhaphy Cole NASH Comment on above: Right Inguinal Herni orrhaphy using mesh Start: 08-06-2008 Cardiac pacemakersanthosh (physical object) Cole NASH Start: 08-06-2008 History of tonsillectomy Cole NASH Depression screening Byron Woodruff Other Screening for malign ant neoplasm of prostate Taras Woodruff Other Plan of Treatment Date Care Activity Detail Author Start: 2034 RSV Vaccine (1 - 1-d ose 75+ series) RSV Vaccine (1 - 1-dose 75+ series) [facility] Start: 10-03-2027 PROSTATE CANCER SCREENING DISCUSSION PROSTATE CANCER SCREENING DISCUSSION [facility] Start: 10-03-2027 Prostate specific antigen measurement Prostate Cancer Screening Discussion [facility] Start: 01-20-2027 Screening for malign ant neoplasm of colon [facility] Start: 01-13-2026 PROSTATE CANCER SCREENING DISCUSSION PROSTATE CANCER SCREENING DISCUSSION [facility] Start: 07-16-2025 End: 07-16-2025 Patient encounter procedure 07/16/2025 4:30 PM EST Office Visit Neurology [address] [place] [address] Tremayne Gibson, DO [address] [place] [address] Return in about 6 months (around 07/10/2025). Neurology Comment on above: Return in about 6 mo nths (around 07/10/2025). Start: 05-26-2025 End: 05-26-2025 Patient encounter procedure 05/26/2025 3:30 PM EDT Office Visit Radiation Oncology [address] [place] [address] Adama Martínez MD [address] [place] [address] Follow up Radiation Oncology Comment on above: Follow up Start: 05-14-2025 End: 05-14-2025 Patient encounter procedure 05/14/2025 8:00 AM EDT Appointment Radiology [address] [facility] [address] [place] [address] CT Comment on above: Post Seed CT Start: 05-07-2025 End: 05-07-2025 Patient encounter procedure 05/07/2025 2:30 PM EDT Office Visit Radiation Oncology [address] [place] [address] Adama Martínez MD [address] [place] [address] Follow up Radiation Oncology Comment on above: Follow up Start: 04-16-2025 End: 04-16-2025 Patient encounter procedure 04/16/2025 8:00 AM EDT Office Visit Radiation Oncology [address] [place] [address] Adama Martínez MD [address] [place] [address] Seed Implant at [facility] Radiation Oncology Comment on above: Seed Implant at [facility] Start: 04-15-2025 End: 04-15-2025 Patient encounter procedure 04/15/2025 10:45 AM EDT Office Visit Radiation Oncology [address] [place] [address] Adama Martínez MD [address] [place] [address] Follow up / Seed implant Radiation Oncology Comment on above: Follow up / Seed imp lant Start: 04-06-2025 Influenza [facility] Start: 04-01-2025 End: 04-01-2025 Patient encounter procedure Radiology Pet CT Comment on above: 2 week follow up pos t seed implant Volume Study Start: 03-18-2025 End: 03-18-2025 Patient encounter procedure 03/18/2025 11:15 AM EDT Office Visit Radiation Oncology [address] [place] [address] Adama Martínez MD [address] [place] [address] Follow up/ Seed implant Radiation Oncology Comment on above: Follow up/ Seed impl ant Start: 03-05-2025 End: 03-05-2025 Patient encounter procedure 03/05/2025 8:00 AM EDT Office Visit Radiation Oncology [address] [place] [address] Adama Martínez MD [address] [place] [address] Seed Implant at [facility] Radiation Oncology Comment on above: Seed Implant at [facility] Start: 02-11-2025 End: 02-11-2025 Patient encounter procedure 02/11/2025 9:00 AM EDT Office Visit Radiation Oncology [address] [place] [address] Adama Martínez MD [address] [place] [address] Volume Study Radiation Oncology Comment on above: Volume Study Start: 01-08-2025 End: 01-08-2025 Patient encounter procedure 01/08/2025 3:30 PM EDT Office Visit Neurology [address] [place] [address] Tremayne Gibson DO [address] [place] [address] PD FOLLOW UP Neurology Comment on above: PD FOLLOW UP Start: 08-06-2024 Advance Directive Discussion Advance Directive Discussion [facility] Start: 05-29-2024 End: 05-29-2024 Patient encounter procedure 05/29/2024 1:00 PM EDT Office Visit Neurology [address] [place] [address] Tremayne Gibson DO [address] [place] [address] Return in about 6 months (around 05/16/2024). Neurology Comment on above: Return in about 6 mo nths (around 05/16/2024). Start: 2024 Advance Directive Discussion Advance Directive Discussion [facility] Start: 2024 Pneumococcal Vaccine : 65+ (1 of 1 - PCV) Pneumococcal Vaccine: 65+ (1 of 1 - PCV) [facility] Start: 04-06-2024 Covid-19 Vaccine ( season) Covid-19 Vaccine ( season) [facility] Start: 04-06-2024 Influenza vaccination C [facility] Start: 03-24-2024 Screening for malign ant neoplasm of colon [facility] Start: 04-06-2023 Covid-19 Vaccine ( season) Covid-19 Vaccine ( season) [facility] Start: 04-06-2023 Influenza vaccination C [facility] Start: 12-26-2022 Adult depression screening assessment DEPRESSION SCREENING [facility] Start: 08-06-2022 DEPRESSION ASSESSMENT DEPRESSION ASS ESSMENT [facility] Start: 04-06-2022 Influenza vaccination C [facility] Start: 08-06-2021 DEPRESSION ASSESSMENT DEPRESSION ASS ESSMENT [facility] Start: 04-06-2021 Influenza vaccination INFLUENZA (#1) [facility] Start: 2019 RSV Vaccine (1 - 1-d ose 60+ series) RSV Vaccine (1 - 1-dose 60+ series) [facility] Start: 2014 PROSTATE CANCER SCREENING DISCUSSION PROSTATE CANCER SCREENING DISCUSSION [facility] Start: 2009 Pneumococcal Vaccine : 50+ (1 of 1 - PCV) Pneumococcal Vaccine: 50+ (1 of 1 - PCV) [facility] Start: 2009 SHINGRIX VACCINE (1 of 2) SHINGRIX VACCINE (1 of 2) [facility] Start: 2004 COLOGUARD (FIT-DNA) COLOGUARD (FIT-D NA) [facility] Start: 2004 Colonoscopy COLONOSCOPY [facility] Start: 2004 COLORECTAL CANCER SCREENING COLORECTAL CANCER SCREENING [facility] Start: [address] COLONOGRAPHY [facility] Start: 2004 DIABETES SCREEN DIABETES SCREEN [facility] Start: 2004 Diabetes Screening Diabetes Screenin g [facility] Start: 2004 FECAL OCCULT BLOOD FECAL OCCULT BLOO D [facility] Start: 2004 Screening for malign ant neoplasm of colon [facility] Start: 2004 SIGMOIDOSCOPY SIGMOIDOSCOPY [facility] Start: 1994 Lipid 1996 panel - S andriy or Plasma Lipid Screening [facility] Start: 1994 Lipid panel Lipid Screening [facility] Start: 1994 LIPID SCREEN LIPID SCREEN [facility] Start: 1978 Urine microalbumin profile [facility] Start: 1977 Anxiety Screening Anxiety Screening [facility] Start: 1977 Depression Screening Depression Scre ening [facility] Start: 1977 HEPATITIS C SCREENING HEPATITIS C SC [facility] Start: 1977 Hepatitis C screening Hepatitis C Sc [facility] Start: 1977 HIV SCREENING HIV SCREENING [facility] Start: 1977 HIV screening HIV Screening [facility] Start: 1971 Adult depression screening assessment DEPRESSION SCREENING [facility] Start: 1964 COVID-19 VACCINE (#1) COVID-19 VACCI NE (#1) [facility] Start: 1964 COVID-19 VACCINE (1) COVID-19 VACCIN E (1) [facility] Start: 1959 COVID-19 VACCINE (#1) COVID-19 VACCI NE (#1) [facility] Comprehensive metabo lic 2000 panel - Serum or Plasma [facility] Immunizations Immunization Date Immunization Notes Care Provider Deniz rogers NEGATED: Highlighted row has not occurred!11-26-2020 SARS-CoV-2 (COVID-19) mRNA-1273 vaccine Cole CHARITY [facility] General Surgery [place] Payers Date Payer Category Payer Medicare [id number] 2024 Self-pay 2023 Unknown [id number] 2022 Private Health Insurance [id number] 2018 Unknown ALAINA JETT PPO [id number] 2018-Present [phone] [facility] [address] [place] [address] PPO [id number] 2018 Unknown [id number] 1959 Unknown [id number] 1959 Unknown [id number] 1959 Unknown [id number] 93 1959 Unknown [id number] 93 1959 Unknown [id number] 27 1959 Unknown [id number] 27 1959 Unknown [id number] [id number] 27 1959 Unknown [id number] 27 1959 Unknown [id number] 27 1959 Unknown [id number] 27 1959 Unknown [id number] 27 Unknown [id number] 31 Unknown [id number] 31 Social History Date Type Detail Facility Tobacco smoking stat us NHIS Tobacco smoking consumption unknown [facility] Start: 1960 Sex Assigned At Not on file C [facility] Start: 09-06-2021 End: 04-04-2022 Exposure to SARS-CoV-2 (event) Not sure [facility] Start: 09-08-2022 End: 03-13-2025 Tobacco smoking status NHIS Never smoked tobacco [facility] Start: 09-08-2022 Tobacco use and exposure Smoke less tobacco non-user [facility] Start: 09-08-2022 End: 01-15-2023 Sex Assigned At [facility] Start: 09-08-2022 End: 01-15-2023 History of Social function [facility] Start: 06-27-2021 Adult Depression Screening Assessment 0 [facility] Start: 10-01-2021 Sexual orientation Choose not to dis close [facility] Start: 04-14-2012 End: 10-06-2024 Sex Male (finding) [facility] Start: 1960 Sex Assigned At Male F [facility] Sexual Orientation [facility] Start: 01-09-2025 Alcoholic beverage intake Ex-drinker (finding) [facility] Clinical Notes 08-06-2008 to 04-07-2025 Adama Martínez MD - 04/07/2025 12:00 AM Adama Broussard MD - 04/01/2025 8:51 AM Adama Broussard MD - 04/01/2025 12:00 AM EDT Note Date & Type Note Facility 04-07-2025 History of Presen t illness Narrative COLE RAMOS [id number] 04/07/2025 [facility] Department of Radiation Oncology [facility] [...] isodose distribution and DVH. Electronically Signed Viktor Martínez M.D. / JOSIAH 2:34 PM documented in this encounter [facility] 04-07-2025 Note HNO ID: [id number] Author: Adama MARTÍNEZ MD Service: ? Author Type: Physician Type: Progress Notes Filed: 2025 12:34 Note Text: COLE RAMOS [id number] 04/07/2025 [facility] Department of Radiation Oncology [facility] [...] isodose distribution and DVH. Electronically Signed Viktor Martínez M.D. / JOSIAH 512:34 PM [facility] 04-01-2025 Note HNO ID: [id number] Author: Adama MARTÍNEZ MD Service: ? Author Type: Physician Type: Progress Notes Filed: 2025 08:53 Note Text: UNIVERSAL PROTOCOL / SAFETY CHECKLIST Procedure to [...] procedure match the source document(s) (e.g. consent, HANDP, associated studies [imaging, pathology]) match the intended [...] been communicated to the patient or surrogate. [facility] 04-01-2025 History of Presen t illness Narrative UNIVERSAL PROTOCOL / SAFETY CHECKLIST Procedure to [...] patient or surrogate. documented in this encounter [facility] 04-01-2025 History of Presen t illness Narrative COLE RAMOS [id number] 04/01/2025 [facility] Department of Radiation Oncology [facility] RADIATION ONCOLOGY SIMULATION NOTE DATE OF SIMULATION: 04/01/2025 MACHINE: [employer] Focus 500 Diagnosis: 185 (Prostate Gland) AREA:Prostate PATIENT POSITION: Supine CONTRAST: None PROTOCOL: None CONCURRENT THERAPY: None FIXATION DEVICE: UTS Stabilization device by [employer]. PROCEDURE: Patient was simulated in exaggerated dorsal lithotomy position. Serial images of the prostate were acquired using TRUS and reconstructed in 3D space. These images were imported into [employer] Prostate planning system where a plan was generated. ASSESSMENT/PLAN: Patient tolerated simulation procedure well. Electronically Signed Viktor Martínez M.D. / QUEENIE 2:45 PM documented in this encounter [facility] 04-01-2025 Note HNO ID: [id number] Author: Adama MARTÍNEZ MD Service: ? Author Type: Physician Type: Progress Notes Filed: 04/02/2025 12:45 Note Text: COLE RAMOS [id number] 04/01/2025 [facility] Department of Radiation Oncology [facility] RADIATION ONCOLOGY SIMULATION NOTE DATE OF SIMULATION: 04/01/2025 MACHINE: [employer] Focus 500 Diagnosis: 185 (Prostate Gland) AREA:Prostate PATIENT POSITION: Supine CONTRAST: None PROTOCOL: None CONCURRENT THERAPY: None FIXATION DEVICE: UTS Stabilization device by [employer]. PROCEDURE: Patient was simulated in exaggerated dorsal lithotomy position. Serial images of the prostate were acquired using TRUS and reconstructed in 3D space. These images were imported into [employer] Prostate planning system where a plan was generated. ASSESSMENT/PLAN: Patient tolerated simulation procedure well. Electronically Signed Viktor Martínez M.D. / QUEENIE 512:45 PM [facility] 03-31-2025 Telephone encounter Note I called and spoke with Cole and reviewed his bowel prep instructions today for tomorrow's volume study. He denies questions at this time. He is aware to arrive at 8:45 tomorrow a.m. Deepika Merino RN [facility] 03-31-2025 Miscellaneous Notes I called and spoke with Cole and reviewed his bowel prep instructions today for tomorrow's volume study. He denies questions at this time. He is aware to arrive at 8:45 tomorrow a.m. Deepika Merino RN documented in this encounter [facility] 03-18-2025 Note Patient is here toda y [...] exertion. Respiratory: Positive for shortness of breath. [facility] 03-18-2025 Note Cardiovascular Medic [facility] SUBJECTIVE Chief Complaint Patient presents with Pre-op Exam Atrial Fibrillation Cole Ramos is a 64 y.o. male here [...] #Paroxysmal atrial fibrillation -Infrequent short asymptomatic episodes. -[id number] - 1 -Continue ASA 325mg daily and [...] cleared by thomas (more content not included)... [facility] 03-13-2025 Evaluation note Diagnosis Onset Date Resolution Viral URI with cough acute Augu st 2024 10:48am Odynophagia noneactive March 19, 2025 10:30am Acute bronchitis due to other specified organisms noneactive March 19 10:30am [facility] Work Phone: [phone]) 591-620006-12-2025 Telephone encounter Note* Telephone Encounter - Jennifer Sal RN - 01/15/2025 3:33 PM EDT Call placed and LM for pt to confirm dates/times of VS and seed Implant. Requested pt CB to review and appts were mailed to pt. Jennifer Sal RN [facility]06-12-2025 Miscellaneous Notes* Telephone Encounter - Jennifer Sal [...] you Jennifer Sal RN documented in this encounterC[facility] Telephone encounter Note * Telephone Encounter - Jennifer Sal RN - 01/15/2025 1:42 PM EDT Scheduling process started and LM for Simi at Dr Nash office to begin coordinating. We will contact pt once this has been scheduled. Jennifer Sal RN [facility]06-11-2025 Telephone encounter Note* Telephone Encounter - Jennifer Sal RN - 01/14/2025 11:46 AM EDT Patient called to let us know he has decided to proceed with brachytherapy for treatment. He spoke to Dr Nash office and they instructed him to call us to start the scheduling process. Dr Martínez- please advise. Are we ok to schedule this? Thank you Jennifer Sal RN [facility]06-09-2025 Telephone encounter Note* Telephone Encounter - Jennifer Sal RN - 01/12/2025 1:19 PM EDT Call received from NASH at [facility] Cardiology. PT is NOT pacemaker dependent. Jennifer Sal RN [facility]06-09-2025 Miscellaneous Notes* Telephone Encounter - Jennifer Sal RN - 01/12/2025 1:19 PM EDT Call received from NASH at [facility] Cardiology. PT is NOT pacemaker dependent. Jennifer Sal RN * Telephone Encounter - Deepika Merino RN - 01/09/2025 1:43 PM EDT I called and spoke to Meg at [phone], Dr. Santos's office, asking if Cole is pacemaker dependent. She is unsure but will call back asapwith an update. Deepika Merino RN documented in this encounterC[facility] Telephone encounter Note * Telephone Encounter - Deepika Merino RN - 01/09/2025 1:43 PM EDT I called and spoke to Meg at [phone], Dr. Santos's office, asking if Cole is pacemaker dependent. She is unsure but will call back asapwith an update. Deepika Merino RN [facility]06-06-2025 NoteHNO ID: [id number] Author: DEEPIKA MERINO RN Service: ? Author Type: Registered Nurse Type: Progress Notes Filed: 01/15/2025 12:19 Note Text: Pacemaker/Defibrillator?Yes -card copied Previous Cancer(s)? Basal cell -left neck-MOHS Previous Radiation? N Lupus/Scleroderma? N On body monitoring device? N AUA= 5 [facility]25 NoteHNO ID: [id number] Author: Adama MARTÍNEZ MD Service: ? Author Type: Physician Type: Progress Notes Filed: 01/15/2025 12:19 Note Text: Radiation Oncology - Prostate Cancer New Patient/Consult Note PATIENT NAME: Cole Ramos PATIENT REQUESTING PROVIDER: Dr. Nash DIAGNOSIS: 64 year old male with prostate adenocarcinoma, initial PSA 4.2, biopsy [place] score 3 + 3 = 6 (grade [...] Neurocardiogenic syncope Neurocardiogenic syncope PD (Parkinson's disease) ([facility]) 12/2021 PAST SURGICAL HISTORY Procedure Laterality Date [...] ASSESSMENT/PLAN: Prostate adenocarcinoma, initial PSA 4.2, biopsy [place] score 3 + 3 = 6 (grade [...] about radiation approaches includin (more content not included)...[facility]06-06-2025 History of Present illness Narrative* Deepika Merino RN - 01/09/2025 10:58 AM EDT Pacemaker/Defibrillator?Yes -card copied Previous Cancer(s)? Basal cell -left neck-MOHS Previous Radiation? N Lupus/Scleroderma? N On body monitoring device? N AUA= 5 Deepika Merino, RN * Adama Martínez MD - 01/09/2025 [...] biopsies taken this area. Pathology revealed adenocarcinoma, [place] 6 (3+3) from L4 L3 L2 and [...] Neurocardiogenic syncope Neurocardiogenic syncope PD (Parkinson's disease) ([facility]) 12/2021 PAST SURGICAL HISTORY Procedure Laterality Date [...] by: Adama Martínez MD cc: Taras Woodruff ([facility]) [address] [place] [address] Cole Contreras Charity [address] [place] [address] documented in this encounterC[facility] Instructions* Patient Instructions* Tremayne Gibson, - 01/08/2025 4:10 PM EDT Medications 7A 10A 1P 4P Sinemet 25/100 1 1 1 1 a. Take Sinemet 30 minutes before meals or 60 minutes after meals. Avoid taking this medication with high protein meals. b. If nausea develops, try taking Sinemet with crackers or bread. c. If nausea still persists, please call [[phone]]. Avoid taking anti- nausea medications before speaking with us. Avoid Reglan, Compazine or Phenergan. documented in this encounterC[facility]25 NoteHNO ID: [id number] Author: TREMAYNE GIBSON DO Service: ? Author Type: Physician Type: Progress Notes Filed: 01/11/2025 15:46 Note Text: [facility] - FOLLOW UP EVALUATION Recording using Video Blocks software for draft documentation of the visit was discussed with the patient/authorized ocean import representative; all questions welcomed and answered. Patient/authorized ocean import representative agreed to proceed Taras Woodruff DO [address] [facility] [address] Dear Taras Woodruff DO: I had the [...] He recalls a previous swallow study at [facility] and participated in speech therapy [...] (BP Site: Left Ar (more content not included)...[facility]06-05-2025 History of Present illness Narrative* Tremayne Gibson DO - 01/08/2025 3:48 PM EDT [facility] - FOLLOW UP EVALUATION Recording using Video Blocks software for draft documentation of the visit was discussed with the patient/authorized ocean import representative; all questions welcomed and answered. Patient/authorized ocean import representative agreed to proceed Taras Woodruff DO [address] [facility] [address] Dear Taras Woodruff DO: I had the [...] He recalls a previous swallow study at [facility] and participated in speech therapy [...] or around: 07/10/25 Level of service : 84711 ( 30-39 min). Time spent 36 min on the day of service, which included preparing to see the patient, wkdv-qz-gnnp patient care, completing clinical documentation, obtaining and/or reviewing separately obtained history, performing a medically appropriate examination, counseling and educating the patient/family/caregiver, ordering medications, tests, or procedures, communicating results to the patient/family/caregiver, and care coordination (not separately reported). Tremayne Gibson, Senior Staff Neurologist - [facility] documented in this encounterCleveland Clinic [facility] Hospital Discharge instructions Patient Education 01/05/2025 09:18:34 [...] under a microscope. This is called the [place] score and the total score can range from 6 10, indicating how likely it is that the cancer will spread (metastasize) to other parts of the body. The higher the score, the greater thelikelihood that the cancer will spread. [place] 6 or lower: This indicates that the cancer cells look similar to normal prostate cells (well differentiated). [place] 7: This indicates that the cancer cells [...] stress of having cancer. General instructions Take tzkf-has-qvipbqc and prescription medicines only as told by your health care provider. If you have to go to the hospital, notify your cancer specialist (oncologist). Keep all follow-up visits. This is important. Where to find more information [place] [employer]: www.cancer.org [place] [employer] of Clinical Oncology: www.cancer.net National Cancer [place]: www.cancer.gov Contact a health care provider if: [...] provider. Document Revised: 10/19/2021 Document Reviewed: 10/19/2021 I-Works Patient Education 2023 [employer]. Follow Up Care 12/11/2024 15:37:32 With:CHARITY TAFOYA, Cole Contreras, URL Address: [facility] [address], [place] [address] [phone] When: Unknown Comments:referral to rad/onc [facility] 06-02-2025 NotePatient Education Oncology Prostate Cancer The [...] under a microscope. This is called the [place] score and the total score can range from 6?10, indicating how likely it is that the cancer will spread (metastasize) to other parts of the body. The higher the score, the greater thelikelihood that the cancer will spread. ??? [place] 6 or lower: This indicates that the cancer cells look similar to normal prostate cells (well differentiated). ??? [place] 7: This indicates that the cancer cells look somewhat similar to normal prostate cells (moderately differentiated). ??? [place] 8, 9, or 10: This indicates that [...] needles, seeds, wires, o (more content not included)...[facility]04-21-2025 NoteUrology Office/Clinic Note Chief Complaint referral for elevated PSA HPI Staff NOZZLEMAN referral for elevated PSA from Dr. Woodruff. [...] of prostate) Follow-up With When Contact Information CHARITY TAFOYA, Cole Contreras, URL [facility] [address] , [place] [address]- [phone] Additional Instructions: schedule prostate MRI and bx Patient Education Magnetic Resonance Imaging Transrectal Ultrasound-Guided Prostate Biopsy, Care After Transrectal Ultrasound-Guided Prostate Biopsy Prostate Cancer Screening IKeisha, personally scribed for Dr. Nash on 11/24/2024 09:40:34. . Documentation recorded by the Keisha coats, accurately reflects the services(s) I performed and [...] No qualifying data Pro (more content not included)...[facility]: Result Comment: Electronically Signed By: Cole NASH MD\.br\Date and Time Signed: 11/24/24 09:42 EDT\.br\Electronically Co-Signed By: Keisha Moscoso.jonny\Date and Time Co-Signed: 11/24/24 09:41 [id number] NotePatient Education Oncology Transrectal Ultrasound-Guided Prostate Biopsy, [...] near your rectum, especially while sitting. ??? [place]-colored urine due to small amounts of blood in your urine. ??? A burning feeling while urinating. ??? Blood in your stool (feces) or bleeding from your rectum. ??? Blood in your semen. Follow these instructions at home: Medicines ??? Take used-ext-ypgjusw and prescription medicines only as told by [...] provider. Document Revised: 01/16/2022 Document Reviewed: 01/16/2022 I-Works Patient Education ? 2023 [employer]. Transrectal Ultrasound-Guided Prostate Biopsy A transrectal ultrasound-guided [...] including vitamins, herbs, eye drops, creams, and dmdt-ent-wfykcnn medicines. ??? Any problems you or family [...] medicines. This is especial (more content not included)...[facility]01-28-2025 Telephone encounter Note* Telephone Encounter - Darlene Cortes - 09/02/2024 11:03 AM EST Pt requesting refill as follows: Last FUV May 2024 with [facility] Request[facility] Prescriptions Pending Prescriptions Disp Refills carbidopa-levodopa (SINEMET) 25-100 mg per tablet 120 tablet 11 Sig: Take 1 tablet by mouth four times daily. Upon approval, script will be sent electronically to the patient's pharmacy. Darlene Frias, Auto Specialty Services Manager III [facility]01-28-2025 Miscellaneous Notes* Telephone Encounter - Darlene Cortes - 09/02/2024 11:03 AM EST Pt requesting refill as follows: Last FUV May 2024 with [facility] Requested Prescriptions Pending Prescriptions Disp Refills carbidopa-levodopa (SINEMET) 25-100 mg per tablet 120 tablet 11 Sig: Take 1 tablet by mouth four times daily. Upon approval, script will be sent electronically to the patient's pharmacy. Darlene Frias, Auto Specialty Services Manager III documented in this encounterCleveland Clinic [facility]01-28-2025 NoteUT Electrophysiology Consult Note Reason for visit: [...] He recently went to Parkinson symposium at [facility]. He is handling his meds well. Device check 04/03/23 SR with normal parameters. 42% RA pacing and 23% RV pacing. Review of Systems Musculoskeletal: Positive for arthritis, back pain and myalgias. All other systems reviewed and are negative. [facility] neurology recently made a formal [...] Tobacco Use: Low Risk (05/29/2024) [facility] from [facility] Patient History Smoking Tobacco Use: Never Smokeless Tobacco Use: Never Passive Exposure: Not on file Alcohol Use: Not on file Financial Resource Strain: Not on file Food Insecurity: Not on file Transportation Needs: Not on file Physical Activity: Not on file Stress: Not on file Social Connections: Not on file Intimate Partner Violence: Unknown (09/27/2023) [place] Safety & Environment Fear of Current or Ex-Partner: Not on file Emotionally Abused: Not on file Physically Abused: Not on file Sexually Abused: Not on file Physically or Sexually Abused: Not on file Depression: Not at risk (05/23/2024) [facility] from [facility] PHQ-2 PHQ-2 score: 0 Housing Stability: [...] by mouth in t (more content not included)...[facility]01-10-2025 NoteHNO ID: [id number] Author: ?, ?, ? Service: ? Author [...] directly to schedule Navigation Signature: Dee Dee Pavon August 15, 2024 1:43 [facility]CMans[facility]01-10-2025 History of Present illness Narrative* Dee Dee Torres - 08/15/2024 1:36 PM EST POPULATION HEALTH NAVIGATION OUTREACH Action/[place] RP Patient Outreach - Left message with [...] directly to schedule Navigation Signature: Dee Dee Pavon August 15, 2024 1:43 PM documented in this encounterCleveland Clinic [facility]01-10-2025 NotePatient Outreach ([facility]) COLE RAMOS ([id number]) 1960 M Date Time Provider Department 08/15/24 NO PCP [facility] During your visit today, we recorded the following information about you: Carter PavonDee Dee Sophia 08/15/2024 1:45 PM Signed POPULATION HEALTH NAVIGATION OUTREACH Action/FYI RP Patient Outreach - Left message with spouse for patient to call back to schedule Provider ordered Follow up in Neurology. (Please see [facility] order dated for (05/29/2024). Any agent can assist with scheduling. Reason for Outreach Care Gap/HCC or Scheduling Wellness Visits Care Gaps due: Follow-up Appointment Patient Contacted: Spoke to patient/parent/or legal guardian Patient identified by name and : Yes Care Gap/HCC/Scheduling Wellness actions taken: Patient declined: Patient will contact office directly to schedule Navigation Signature: Dee Dee Pavon August 15, 2024 1:43 PM Allergies [...] disease (H*10/18/2021 Encounter Status:Closed by DEE DEE TORRES on 08/15/24[facility]12-30[facility] Telephone encounter Note* Telephone Encounter - Martin Piedra - 08/04/2024 11:35 AM EST LAST APPT 05/29/24 [facility] Forwarding to covering physician Requested Prescriptions Pending Prescriptions Disp Refills carbidopa-levodopa (SINEMET) 25-100 mg per tablet 120 tablet 0 Sig: Take 1 tablet by mouth four times daily. [facility]12-30-2024 Miscellaneous Notes* Telephone Encounter - Martin Piedra - 08/04/2024 11:35 AM EST LAST APPT 05/29/24 [facility] Forwarding to covering physician Requested Prescriptions Pending Prescriptions Disp Refills carbidopa-levodopa (SINEMET) 25-100 mg per tablet 120 tablet 0 Sig: Take 1 tablet by mouth four times daily. documented in this encounterCleveland Clinic [facility]10-24-2024 NoteHNO ID: [id number] Author: TREMAYNE GIBSON DO Service: ? Author Type: Physician Type: Progress Notes Filed: 05/29/2024 13:39 Note Text: [facility] - FOLLOW UP EVALUATION Taras Woodruff DO [address] [facility] [address] Dear Taras Woodruff DO: I had the [...] are normal. Fund of (more content not included)...[facility]10-24-2024 History of Present illness Narrative* Tremayne Gibson DO - 05/29/2024 1:23 PM EDT [facility] - FOLLOW UP EVALUATION Taras Woodruff DO [address] [facility] [address] Dear Taras Woodruff DO: I had the [...] Left pathological reflexes: Rashel's absent. Coordination Right: Tlfwtf-oo-pugq normal. Rapid alternating movement normal.Left: Fqepev-kw-rzdi normal. Rapid alternating movement normal. Gait Casual [...] 1 1 1 Level of service : 32990 (10-19 min). Time spent 15 min on the day of service, which included preparing to see the patient, tqcl-ar-tuvs patient care, completing clinical documentation, obtaining and/or [...] Sincerely, Tremayne Gibson DO documented in this encounterCleveland Clinic [facility]09-28-2024 NoteHNO ID: [id number] Author: MARI ROSAS DO Service: ? Author Type: Physician Type: Progress Notes Filed: 05/03/2024 12:43 Note Text:[id number] History of Present illness Narrative* Mari Rosas DO - 05/03/2024 12:43 PM EDT documented in this encounterCleveland Clinic [facility]09-28-2024 Telephone encounter Note * Telephone Encounter - Mari Rosas DO - 05/03/2024 12:41 PM EDT Patient called stating he was out of town and needed 10 pills of Sinemet to [facility] in [place]. Refillordered [facility]09-28-2024 Miscellaneous Notes* Telephone Encounter - Mari Rosas DO - 05/03/2024 12:41 PM EDT Patient called stating he was out of town and [facility] [place]. Refillordered documented in this encounterCleveland Clinic [facility]09-11-2024 Note-Patient has no concerning symptoms. -UPLU9Q1-PBTP score: 1 (age).[facility]09-11-2024 Note Device check on 03/19/24 -Found to have normal functioning. -Pacemaker life: 3 year 10 month remaining. -Atrial paced 45%, RV paced 15%.[facility]09-11-2024 NoteOrdered Echo (TTE) in 6 months for re-evaluation of ascending thoracic aneurysm. Continue to monitor for increased dilation. -Last echo in 2019 showed ascending thoracic aorta measuring 4.2. CTA in 2023 showed no increase in size.[facility]09-11-2024 Note Lipid studies from 09/28/23 show elevated LDL at 128.4. -Started Lipitor 40 mg at today's visit for better lipid control. -Will re-draw lipids and CMP in 3 months.[facility] 04-16-2024 NotePt is here for a six month follow up. Pt denies chest pain, sob, palpatations Review of Systems Neurological: Positive for light-headedness and tremors. All other systems reviewed and are negative.[facility] 04-16-2024 NoteUTP CARDIOLOGY PROGRESS NOTE [facility] HPI: Cole Ramos is a 64 y.o. [...] check after statin initiation. Sathish Sandra PA-C [facility] Cardiology Available 7-5pm via [employer] Pager #: [phone] Health System06-26-2024 Telephone encounter Note* Telephone Encounter - Martin Piedra - 01/30/2024 10:46 AM EDT Last appt 11/15/23 [facility] [place] requesting refills as follows: Requested Prescriptions Pending Prescriptions Disp Refills carbidopa-levodopa (SINEMET) 25-100 mg per tablet 360 tablet 1 Sig: Take 1 tablet by mouth four times daily. [facility]06-26-2024 Miscellaneous Notes* Telephone Encounter - Martin Piedra - 01/30/2024 10:46 AM EDT Last appt 11/15/23 [facility] Patient phones requesting refills as follows: Requested Prescriptions Pending Prescriptions Disp Refills carbidopa-levodopa (SINEMET) 25-100 mg per tablet 360 tablet 1 Sig: Take 1 tablet by mouth four times daily. documented in this encounterCleveland Clinic [facility]04-11-2024 Instructions* Patient Instructions* Tremayne Gibson DO - [...] Reglan, Compazine or Phenergan. documented in this encounterCleveland Clinic [facility]04-11-2024 History of Present illness Narrative* Tremayne Gibson [...] BP Cuff Size: Regular Adult) Pulse 106 [id number]% General Medical Examination: General Description of Patient: [...] Left pathological reflexes: Rashel's absent. Coordination Right: Wejhhf-yp-vqko normal. Rapid alternating movement normal.Left: Txgpwm-jv-szpx normal. Rapid alternating movement normal. Gait Casual [...] during this visit: Pd (parkinson's disease) (formerly [facility]) (primary encounter diagnosis) Sialorrhea Rbd (rem behavioral [...] counseling regarding preparing to see the patient, qfre-yx-ssui patient care, completing clinical documentation, obtaining and/or reviewing separately obtained history, performing a medically appropriate examination, counseling and educating the patient/family/caregiver, ordering medications, tests,or procedures, and communicating results to the patient/family/caregiver. I tried to answer all of the patient's questions and concerns during this visit. Tremayne Gibson DO Senior Staff Neurologist - [facility] documented in this encounterCleveland Clinic [facility]01-11-2024 Evaluation note* Encounter Date Diagnosis Assessment Notes [...] G20) Weakens his ability to clear secretions [facility] 01-05-2024 Evaluation note* Encounter Date Diagnosis [...] elevation of HOB. Tessalon Perles since nonproductive [facility] 10-05-2023 History of Present illness Narrative* Tremayne Gibson, - 05/10/2023 11:20 AM EDT [facility] - FOLLOW UP EVALUATION Tremayne Gibson [address] [facility] [address] Cole Ramos is a 63 year old [...] Left pathological reflexes: Rashel's absent. Coordination Right: Kvqzvm-if-ophh normal. Rapid alternating movement normal.Left: Pmojcl-si-mexn normal. Rapid alternating movement normal. Gait Casual [...] counseling regarding preparing to see the patient, idwr-gb-bjqy patient care, completing clinical documentation, obtaining and/or reviewing separately obtained history, performing a medically appropriate examination, counseling and educating the patient/family/caregiver, ordering medications, tests,or procedures, and communicating results to the patient/family/caregiver. I tried to answer all of the patient's questions and concerns during this visit. Tremayne Gibson DO Senior Staff Neurologist - [facility] * Abhishek Cotto LPN - 05/10/2023 [...] (Sleep study not recommended) documented in this encounterCleveland Clinic [facility]09-01-2023 Miscellaneous Notes* Telephone Encounter - Drew Mora RN - 04/06/2023 2:59 PM EDT Form printed and in nursing outbox for MD signature. Drew Mora RN * Telephone Encounter - Flora Quevedo - 04/06/2023 2:05 PM EDT Received form by fax from [facility] in [place]. They are asking if the patient can participate [employer] fitness class. Scanned form to patient's chart for provider signature. documented in this encounterCleveland Clinic [facility]08-08-2023 Evaluation note* Encounter Date Diagnosis Assessment [...] calories. Protien supplement recommended. Monitor for now. [facility] Other 03-06-2023 Evaluation note* Encounter Date Diagnosis Assessment Notes Treatment Notes Treatment Clinical Notes Oct, Parkinson's disease (ICD-10 - G20) [facility] Other 02-28-2023 Evaluation note* Encounter Date Diagnosis [...] f/u Neurology, scheduled to be seen at [facility] neuropathy clinic. Fall precautions., inspect feet daily for cuts and calluses. Sep, Paroxysmal atrial fibrillation (ICD-10 - I48.0) CHADS VASC=0 Denies episodes of tachycardia. f/u Cardiology Sep, Cardiac pacemaker (I CD-10 - Z95.0) PM checks q 6mo [facility] Other 02-14-2023 Evaluation note* Encounter Date Diagnosis [...] treatment plan. Patient left in stable condition. [facility] Other [id number] Instructions* Patient Instructions* Tremayne Gibson DO - 09/08/2022 8:40 AM EST Medications 6A 10A 245P Sinemet 25/100 1 1 1 documented in this encounterCleveland Clinic [facility]02-03-2023 History of Present illness Narrative* Tremayne Gibson DO - 09/08/2022 8:18 AM EST [facility] - FOLLOW UP EVALUATION Tremayne Gibson [address] [facility] [address] Cole Ramos is a 62 year old [...] holds a paper. No falls are noted. [employer] was bought out and he is working on [employer] through December 2022 - has to hold off on PT and INSTRUMENT AND ELECTRICAL TECHNICIAN until then. There is a strong [...] in Neurology OT/PT/Speech Visit from 10/13/2021 in [facility] Physical [facility] T [...] Left pathological reflexes: Rashel's absent. Coordination Right: Dfhahr-lh-phiq normal. Rapid alternating movement normal.Left: Fhjmap-kt-cnei normal. Rapid alternating movement normal. Gait Casual [...] the amplitude decrements starting after the 1st usqh-gma-vktgh sequence. Arm Movements Right 2-Mild. a) 3 [...] during this visit: Pd (parkinson's disease) (formerly [facility]) (primary encounter diagnosis) Neuropathy, peripheral, hereditary Plan: Continue Sinemet Encouraged exercise - ~150 minutes of strenuous exercise weekly is recommended Defer until 12/26; PT at [place] Defer until 12/26; genetic counseling for testing for peripheral neuropathy Return in about 6 months (around 03/08/2023). Medical decision making was high complexity due to patient's, multiple symptoms, advancing disease,newly diagnosed Neurologic disease and counseling about chcf implications The total time spent on the patient care was 25 minutes with greater than 50% of the time spent on counseling regarding preparing to see the patient, fznz-xb-whlt patient care, completing clinical documentation, obtaining and/or reviewing separately obtained history, performing a medically appropriate examination, counseling and educating the patient/family/caregiver, ordering medications, tests,or procedures, and communicating results to the patient/family/caregiver. I tried to answer all of the patient's questions and concerns during this visit. Tremayne Gibson DO Senior Staff Neurologist - [facility] documented in this encounterCleveland Clinic [facility]05-26-2022 Instructions* Patient Instructions* Tremayne Gibson DO [...] Reglan, Compazine or Phenergan. documented in this encounterCleveland Clinic [facility]05-26-2022 History of Present illness Narrative* Tremayne Gibson DO - 12/29/2021 2:10 PM EDT [facility] - FOLLOW UP EVALUATION Tremayne Gibson [address] [facility] [address] Cole Ramos is a 61 year old male with a history of IPD (idiopathic Parkinson's disease). He is seen with his . Interval History Since Last Visit: The patient has been following through with the INSTRUMENT AND ELECTRICAL TECHNICIAN exercises on his drive to work. He notes mild depression. He has been using the treadmill. The short-term memory issues are still an issue. He notes continuing cognitive issues. The PT has been helpful - he notes more yalss-wi-jvtazo. No falls arereported. The patient denies any [...] visit: PROMIS-10 OT/PT/Speech Visit from 10/13/2021 in [facility] Physical [facility] T [...] Left pathological reflexes: Rashel's absent. Coordination Right: Khwije-wk-dahc normal. Rapid alternating movement normal. Left: Gbdjjz-rj-vkua normal. Rapid alternating movement normal. Gait Casual [...] the amplitude decrements starting after the 1st utio-cqw-srttm sequence. Arm Movements Right 2-Mild. a) 3 [...] during this visit: Pd (parkinson's disease) (formerly [facility]) (primary encounter diagnosis) Plan: 1. Start Sinemet [...] counseling regarding preparing to see the patient, lycd-cy-odpp patient care, completing clinical documentation, obtaining and/or reviewing separately obtained history, performing a medically appropriate examination, counseling and educating the patient/family/caregiver, ordering medications, tests,or procedures and communicating results to the patient/family/caregiver. I tried to answer all of the patient's questions and concerns during this visit. Tremayne Gibson DO Senior Staff Neurologist - [facility] documented in this encounterCleveland Clinic [facility]04-28-2022 History of Present illness Narrative* Janice Leon [facility]-INSTRUMENT AND ELECTRICAL TECHNICIAN - 12/01/2021 8:55 AM EDT Episode Visit Count: 5 Therapist That Will Oversee The Plan Of Care: Janice Leon Start of Care Date: 10/13/21 Onset Date: 10/06/21 Plan of Care Certification Date: 10/13/21 Next Certification Due Date: 12/12/21 Patient Identified by Name and Date of : Yes [facility] SPEECH THERAPY [...] upright 90 degrees for all PO;Small Bite/Sip INSTRUMENT AND ELECTRICAL TECHNICIAN Recommendations: Outpatient Speech Therapy Results and Recommendations Discussed With: Patient Planned Interventions, Frequency, and Duration: Planned Treatment Interventions: Cognitive-Linguistic Training (87740, 58741, 66463);Dysphagia Reduction Training (13213);Expressive Language Training (96229, 61283);Voice Training (72742) Current Frequency: 1x/week Duration: 4 weeks PLAN [...] reps each Laryngeal elevation/adduction exercises: 10 reps INSTRUMENT AND ELECTRICAL TECHNICIAN administered DEEP PHARYNGEAL NEUROMUSCULAR STIMULATION to [...] 70.2 Sentences: 67.9 TREATMENT: Swallow / Dysphagia (54237): Skilled Intervention: Demonstrated, instructed, modeled and provided educational handout(s) for hyolaryngeal elevation and excursion manuevers and lingual ROM, lingual base ROM, pharyngeal ROM., Provided both written and video instruction for home exercise program to facilitate follow through with proper performance. , Provided neuromuscular reeducation of swallowing reflex via DPNS Speech/Language Therapy (14652): Skilled Intervention: Educated and instructed patient on [...] per 5 word sentences Billing: Speech Treatment (85360) and Dysphagia Treatment (38330) Total time / Length of visit: 60 minutes Janice Leon CCC-INSTRUMENT AND ELECTRICAL TECHNICIAN documented in [facility] encounterC[facility] Miscellaneous Notes* Addendum Note - Hero Cuellar PT - 11/10/2021 9:37 AM EDT Addended by: HERO CUELLAR on: 11/10/2021 09:37 AM Modules accepted: Orders documented in this encounterC[facility] History of Present illness Narrative* LANEY ParkINSTRUMENT AND ELECTRICAL TECHNICIAN - 11/10/2021 9:04 AM EDT Episode Visit Count: 4 Therapist That Will Oversee The Plan Of Care: Janice Leon Start of Care Date: 10/13/21 Onset Date: 10/06/21 Plan of Care Certification Date: 10/13/21 Next Certification Due Date: 12/12/21 Patient Identified by Name and Date of : Yes [facility] SPEECH THERAPY [...] upright 90 degrees for all PO;Small Bite/Sip INSTRUMENT AND ELECTRICAL TECHNICIAN Recommendations: Outpatient Speech Therapy Results and Recommendations Discussed With: Patient Planned Interventions, Frequency, and Duration: Planned Treatment Interventions: Cognitive-Linguistic Training (53162, 40197, 86723);Expressive Language Training (63814, 80371);Voice Training (76546);Dysphagia Reduction Training (85883) Current Frequency: 1x/week Duration: 4 weeks PLAN [...] 5 reps Pharyngeal ROM exercises: 10 reps INSTRUMENT AND ELECTRICAL TECHNICIAN administered DEEP PHARYNGEAL NEUROMUSCULAR STIMULATION to CN V-XII sites with iced lemon glycerine swabs x 18. Patient demonstrated mild-strong gag response x 15, moderate to max lingual curling,moderate to max palatal lift and swallow reflexes of 2-3 seconds. TREATMENT: Swallow / Dysphagia (86260): Skilled Intervention: Demonstrated, instructed, modeled and provided [...] of swallowing reflex via DPNS. Speech/Language Therapy (42396): Skilled Intervention: Educated and instructed patient on compensatory strategies for vocal intensity, working memory, informtion processing Educated and instructed patient on memory recall strategies such as grouping. Provided verbal cues in vocal intensity. Provided and instructed patient per home exercise program. Current Home Program: facial/lingual/lingual base/laryngeal/pharyngeal exercises, working memory per 5 word sentences, memory using grouping, abstract categorical naming Billing: Speech Treatment (71428) and Dysphagia Treatment (57566) Total time / Length of visit: 75 minutes Janice Leon CCC-INSTRUMENT AND ELECTRICAL TECHNICIAN documented in this encounterC[facility] History of Present illness Narrative* Hero [...] Patient to be seen for Therapeutic exercise (20172);Neuromuscular re-education (36663);Manual therapy (35064);Therapeutic activities (14715);Self-halfway management (34189);Gait Training (37194);Patient/Family/Caregiver Education;Functional training PLAN FOR NEXT VISIT: Return in 6 months to reperform outcome measures SUBJECTIVE: Patient Reason for Visit: Pt had a bout of headache and feeling off balance. Plans to discuss with caretaker grounds. Pt will be working with Dr. Galan [...] Gait belt utilized during session for safety. Self-Penitentiary Management: 1: Reviewed PD aerobic exercise intensity [...] 60 Hero Cuellar PT documented in this encounterC[facility]04-[facility] Miscellaneous Notes* Telephone Encounter - Darlene Salazar - 11/07/2021 1:09 PM EDT MBS results received via fax and available to view in scanned documents. documented in this encounterC[facility] Clinic [facility]03-[facility] History of Present illness Narrative* Janice Leon CCC-INSTRUMENT AND ELECTRICAL TECHNICIAN - 11/03/2021 11:11 AM EDT Episode Visit Count: 3 Therapist That Will Oversee The Plan Of Care: Janice Leon Start of Care Date: 10/13/21 Onset Date: 10/06/21 Plan of Care Certification Date: 10/13/21 Next Certification Due Date: 12/12/21 Patient Identified by Name and Date of : Yes [facility] SPEECH THERAPY [...] 69.4 dB SPL TREATMENT: Swallow / Dysphagia (52718): Skilled Intervention: Provided education related to a [...] follow through with proper performance. Speech/Language Therapy (03156): Skilled Intervention: Educated and instructed patient on compensatory strategies for vocal intensity Provided verbal cues in vocal intensity. Provided and instructed patient per home exercise program. 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) Unspecified persistent mental disorders due to conditions classified elsewhere Pharyngeal dysphagia Dysphagia, pharyngeal phase PD (Parkinson's disease) (HCC) Paralysis agitans documented in this encounter [facility]* Diagnosis Abnormality of gait- Primary PD (Parkinson's disease) (HCC) Paralysis agitans [facility]* 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) Unspecified persistent mental disorders due to conditions classified elsewhere Pharyngeal dysphagia Dysphagia, pharyngeal phase PD (Parkinson's disease) (HCC) Paralysis agitans documented in this encounter [facility]* 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) Unspecified persistent mental disorders due to conditions classified elsewhere Pharyngeal dysphagia Dysphagia, pharyngeal phase PD (Parkinson's disease) (HCC) Paralysis agitans [facility]* Diagnosis PD (Parkinson's disease) (HCC)- Primary Paralysis agitans documented in this encounter [facility]* Diagnosis PD (Parkinson's disease) (HCC)- Primary Paralysis agitans Neuropathy, peripheral, hereditary Hereditary peripheral neuropathy documented [facility] this [facility]* Diagnosis PD (Parkinson's disease) (HCC)- Primary Paralysis agitans [facility]* Diagnosis PD (Parkinson's disease) Paralysis agitans documented [facility] this [facility]* Diagnosis PD (Parkinson's disease) (HCC)- Primary Paralysis agitans Sialorrhea Disturbance of salivary secretion 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 documented [facility]* Diagnosis PD (Parkinson's disease) (HCC) Paralysis agitans [facility]* Diagnosis PD (Parkinson's disease) (HCC) Paralysis agitans [facility]* Diagnosis PD (Parkinson's disease) (HCC)- Primary Paralysis agitans Sialorrhea Disturbance of salivary secretion 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 documented [facility]* Diagnosis PD (Parkinson's disease) (HCC) Paralysis agitans documented [facility]* Diagnosis PD (Parkinson's disease) (HCC) Paralysis agitans [facility]* Diagnosis Onset Date Resolution Status Admit Date Ascending aortic aneurysm acute October 06, 2024 9:20am Chronic kidney disease acute [facility] 2024 9:20am Hypercholesterolemia acute [facility] 2024 9:20am Parkinson's disease acute October 06, 2024 9:20am Paroxysmal atrial fibrillation acute October 06, 2024 9:20am Screening PSA (prostate spec ific antigen) acute October 06, 2024 9:20am Symptomatic bradycardia acute [facility] 2024 9:20am Wellness examination noneactive Carlos h 2024 9:20am [facility] Work Phone: Evaluation note* Diagnosis Parkinson's disease without dyskinesia or fluctuating manifestations (HCC)- Primary Slow transit constipation Dysphagia, unspecified type documented in this encounter [facility]* Diagnosis Malignant neoplasm of prostate (HCC)- Primary Malignant neoplasm of prostate documented in this encounter [facility] noteNo assessment information availableMer[facility] Work Phone: Evaluation note* Diagnosis Onset Date Resolution Status Admit Date Sore throat noneactive March 13 10:48am [facility] Work Phone: Evaluation note* Diagnosis Malignant neoplasm of prostate (HCC)- Primary Malignant neoplasm of prostate [facility] Narrative No data available for this section [facility] progress note No data available for this section [facility] reason for referral (narrative)No reason for referral information availableProm[facility] Work Phone: Reason for Referral Specialty Diagnoses / Procedures Referred By Lyubov t Referred To Contact [facility] Diagnoses Abnormality of gait PD (Parkinson's disease) (HCC) Procedures PT REHAB FOLLOW UP ORDER THERAPEUTIC EXERCISES RE, EA 15 MIN. 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) Pharyngeal dysphagia PD (Parkinson's disease) ([facility]) Procedures SPEECH REHAB FOLLOW UP ORDER TX SPEECH LANG VOICE COMMJ &/AUDITORY PROC IND Tremayne Gibson DO [address] [place] [address] [facility] [address] [address] Referral ID Status Reason Start Date Expiration Date V isits Requested Visits Authorized [id number] Closed PCP Requested Referral Auto-Generated Referral 12/01/2021 03/01/2022 1 1 Specialty Diagnoses / Procedures Referred By Lyubov marks Referred To Contact Diagnoses PD (Parkinson's disease) ([facility]) Procedures PROVIDER ORDERED FOLLOW UP OFFICE/OUTPATIENT NEW HIGH MDM 60-74 MINUTES Tremayne Gibson DO [address] [place] [address] Referral ID Status Reason Start Date Expiration Date V isits Requested Visits Authorized [id number] Authorized 07/01/2022 09/29/2022 1 1 Referral ID Status Reason Start Date Expiration Date V isits Requested Visits Authorized [id number] Authorized 03/08/2023 06/06/2023 1 1 Specialty Diagnoses / Procedures Referred By Lyubov marks Referred To Contact [facility] Diagnoses PD (Parkinson's disease) ([facility]) Procedures CONSULT TO PHYSICAL THERAPY PHYSICAL THERAPY EVALUATION HIGH COMPLEX 45 MINS Tremayne Gibson DO [address] [place] [address] [facility] [address] [address] Referral ID Status Reason Start Date Expiration Date Visits Requested Visits Authorized [id number] Pending Review Auto-Generat ed Referral 12/15/2022 11/23/2023 1 1 Specialty Diagnoses / Procedures Referred By Lyubov marks Referred To Contact Diagnoses PD (Parkinson's disease) ([facility]) Sialorrhea RBD (REM behavioral disorder) Procedures PROVIDER ORDERED FOLLOW UP OFFICE/OUTPATIENT NEW HIGH MDM 60 MINUTES Tremayne Gibson DO [address] [place] [address] Referral ID Status Reason Start Date Expiration Date V isits Requested Visits Authorized [id number] Authorized 05/16/2024 08/14/2024 1 1 Specialty Diagnoses / Procedures Referred By Lyubov marks Referred To Contact Diagnoses PD (Parkinson's disease) ([facility]) Procedures PROVIDER ORDERED FOLLOW UP OFFICE/OUTPATIENT [facility] [place] 60 MINUTES Tremayne Gibson, DO [address] [place] [address] Referral ID Status Reason Start Date Expiration Date V isits Requested Visits Authorized [id number] Authorized 11/27/2024 02/25/2025 1 1 Summary Purpose Family History Relationship Condition Age [...] or prosecute any alcohol or drug abuse patient.[facility] HospitalIn the event this information is protected by the Federal Confidentiality of Alcohol and Drug Abuse Patient Records regulations: The Federal rules restrict any use of the information to criminally investigate or prosecute any alcohol or drug abuse patient.[facility] HospitalIn the event this information is protected by the Federal Confidentiality of Alcohol and Drug Abuse Patient Records regulations: The Federal rules restrict any use of the information to criminally investigate or prosecute any alcohol or drug abuse patient.[facility] HospitalIn the event this information is protected by the Federal Confidentiality of Alcohol and Drug Abuse Patient Records regulations: The Federal rules restrict any use of the information to criminally investigate or prosecute any alcohol or drug abuse patient.[facility] HospitalIn the event this information is protected by the Federal Confidentiality of Alcohol and Drug Abuse Patient Records regulations: The Federal rules restrict any use of the information to criminally investigate or prosecute any alcohol or drug abuse patient.[facility] HospitalIn the event this information is protected by the Federal Confidentiality of Alcohol and Drug Abuse Patient Records regulations: The Federal rules restrict any use of the information to criminally investigate or prosecute any alcohol or drug abuse patient.[facility] HospitalIn the event this information is protected by the Federal Confidentiality of Alcohol and Drug Abuse Patient Records regulations: The Federal rules restrict any use of the information to criminally investigate or prosecute any alcohol or drug abuse patient.[facility] HospitalIn the event this information is protected by the Federal Confidentiality of Alcohol and Drug Abuse Patient Records regulations: The Federal rules restrict any use of the information to criminally investigate or prosecute any alcohol or drug abuse patient.[facility] HospitalIn the event this information is protected by the Federal Confidentiality of Alcohol and Drug Abuse Patient Records regulations: The Federal rules restrict any use of the information to criminally investigate or prosecute any alcohol or drug abuse patient.[facility] HospitalIn the event this information is protected by the Federal Confidentiality of Alcohol and Drug Abuse Patient Records regulations: The Federal rules restrict any use of the information to criminally investigate or prosecute any alcohol or drug abuse patient.[facility] HospitalIn the event this information is protected by the Federal Confidentiality of Alcohol and Drug Abuse Patient Records regulations: The Federal rules restrict any use of the information to criminally investigate or prosecute any alcohol or drug abuse patient.[facility] HospitalIn the event this information is protected by the Federal Confidentiality of Alcohol and Drug Abuse Patient Records regulations: The Federal rules restrict any use of the information to criminally investigate or prosecute any alcohol or drug abuse patient.[facility] HospitalIn the event this information is protected by the Federal Confidentiality of Alcohol and Drug Abuse Patient Records regulations: The Federal rules restrict any use of the information to criminally investigate or prosecute any alcohol or drug abuse patient.[facility] HospitalIn the event this information is protected by the Federal Confidentiality of Alcohol and Drug Abuse Patient Records regulations: The Federal rules restrict any use of the information to criminally investigate or prosecute any alcohol or drug abuse patient.[facility] HospitalIn the event this information is protected by the Federal Confidentiality of Alcohol and Drug Abuse Patient Records regulations: The Federal rules restrict any use of the information to criminally investigate or prosecute any alcohol or drug abuse patient.[facility] HospitalIn the event this information is protected by the Federal Confidentiality of Alcohol and Drug Abuse Patient Records regulations: The Federal rules restrict any use of the information to criminally investigate or prosecute any alcohol or drug abuse patient.[facility] HospitalIn the event this information is protected by the Federal Confidentiality of Alcohol and Drug Abuse Patient Records regulations: The Federal rules restrict any use of the information to criminally investigate or prosecute any alcohol or drug abuse patient.[facility] HospitalIn the event this information is protected by the Federal Confidentiality of Alcohol and Drug Abuse Patient Records regulations: The Federal rules restrict any use of the information to criminally investigate or prosecute any alcohol or drug abuse patient.[facility] HospitalIn the event this information is protected by the Federal Confidentiality of Alcohol and Drug Abuse Patient Records regulations: The Federal rules restrict any use of the information to criminally investigate or prosecute any alcohol or drug abuse patient.[facility] HospitalIn the event this information is protected by the Federal Confidentiality of Alcohol and Drug Abuse Patient Records regulations: The Federal rules restrict any use of the information to criminally investigate or prosecute any alcohol or drug abuse patient.[facility] HospitalIn the event this information is protected by the Federal Confidentiality of Alcohol and Drug Abuse Patient Records regulations: The Federal rules restrict any use of the information to criminally investigate or prosecute any alcohol or drug abuse patient.[facility] HospitalIn the event this information is protected by the Federal Confidentiality of Alcohol and Drug Abuse Patient Records regulations: The Federal rules restrict any use of the information to criminally investigate or prosecute any alcohol or drug abuse patient.[facility] HospitalIn the event this information is protected by the Federal Confidentiality of Alcohol and Drug Abuse Patient Records regulations: The Federal rules restrict any use of the information to criminally investigate or prosecute any alcohol or drug abuse patient.[facility] HospitalIn the event this information is protected by the Federal Confidentiality of Alcohol and Drug Abuse Patient Records regulations: The Federal rules restrict any use of the information to criminally investigate or prosecute any alcohol or drug abuse patient.[facility] HospitalIn the event this information is protected by the Federal Confidentiality of Alcohol and Drug Abuse Patient Records regulations: The Federal rules restrict any use of the information to criminally investigate or prosecute any alcohol or drug abuse patient.[facility] HospitalIn the event this information is protected by the Federal Confidentiality of Alcohol and Drug Abuse Patient Records regulations: The Federal rules restrict any use of the information to criminally investigate or prosecute any alcohol or drug abuse patient.[facility] HospitalIn the event this information is protected by the Federal Confidentiality of Alcohol and Drug Abuse Patient Records regulations: The Federal rules restrict any use of the information to criminally investigate or prosecute any alcohol or drug abuse patient.[facility] HospitalIn the event this information is protected by the Federal Confidentiality of Alcohol and Drug Abuse Patient Records regulations: The Federal rules restrict any use of the information to criminally investigate or prosecute any alcohol or drug abuse patient.[facility] HospitalIn the event this information is protected by the Federal Confidentiality of Alcohol and Drug Abuse Patient Records regulations: The Federal rules restrict any use of the information to criminally investigate or prosecute any alcohol or drug abuse patient.[facility] Reason for Visit (unrecogniz ed section and content) Reason Comments Speech Progress Note Specialty Diagnoses / Procedures Referred By Lyubov t Referred To Contact SPEECH THERAPY Diagnoses PD (Parkinson's disease) (HCC) Procedures CONSULT TO SPEECH THERAPY OFFICE/OUTPATIENT [facility] [place] 60-74 MINUTES EVAL SPEECH SOUND PRODUCT LANGUAGE COMPREHENSION TX SPEECH LANG VOICE COMMJ &/AUDITORY PROC IND Tremayne Gibson, DO [address] [place] [address] [address] Referral ID Status Reason Start Date Expiration Date Visits Requested Visits Authorized [id number] Authorized Auto-Generat ed Referral 10/07/2021 08/05/2022 30 30 Reason Comments Speech Therapy Reason Comments Physical Therapy PT Progress Note Specialty Diagnoses / Procedures Referred By Kinseyac t Referred To Contact PHYSICAL THERAPY Diagnoses PD (Parkinson's disease) ([facility]) Procedures CONSULT TO PHYSICAL THERAPY PHYSICAL THERAPY EVALUATION HIGH COMPLEX 45 MINS THERAPEUTIC EXERCISES RE, EA 15 MIN. Tremayne Gibson, DO [address] [place] [address] [address] Referral ID Status Reason Start Date Expiration Date Visits Requested Visits Authorized [id number] Authorized Auto-Generat ed Referral 10/07/2021 08/05/2022 30 30 Reason Comments Speech Progress Note Specialty Diagnoses / Procedures Referred By Lyubov t Referred To Contact SPEECH THERAPY Diagnoses PD (Parkinson's disease) ([facility]) Procedures CONSULT TO SPEECH THERAPY OFFICE/OUTPATIENT NEW HIGH MDM 60-74 MINUTES EVAL SPEECH SOUND PRODUCT LANGUAGE COMPREHENSION TX SPEECH LANG VOICE COMMJ &/AUDITORY PROC IND Tremayne Gibson, DO [address] [place] [address] [address] Reason Comments Results MBS Reason Comments Established Patient Tremor Tremors little worse Numbness in both feet mostly left Specialty Diagnoses / Procedures Referred By Lyubov marks Referred To Contact Diagnoses PD (Parkinson's disease) ([facility]) Procedures PROVIDER ORDERED FOLLOW UP OFFICE/OUTPATIENT NEW HIGH MDM 60-74 MINUTES Tremayne Gibson, DO [address] [place] [address] Referral ID Status Reason Start Date Expiration Date Visits Re quested Visits Authorized [id number] Closed 07/01/2022 09/29/2022 1 1 Reason Comments Forms Reason Comments Follow Up Specialty Diagnoses / Procedures Referred By Lyubov marks Referred To Contact Diagnoses PD (Parkinson's disease) Procedures PROVIDER ORDERED FOLLOW UP OFFICE/OUTPATIENT NEW HIGH MDM 60-74 MINUTES Tremayne Gibson DO [address] [place] [address] Referral ID Status Reason Start Date Expiration Date Visits Re quested Visits Authorized [id number] Closed 03/08/2023 06/06/2023 1 1 Reason Comments Follow Up Follow up on Vanessa ons Reason Onset Date Comments Refill Request 01/30/2024 Reason Comments Follow Up Parkinson's Disease Per patient statemen t, My caretaker grounds wants me to start Lipitor and I wanted to check with him prior to starting. Patient conts with P.T. and is going well. Specialty Diagnoses / Procedures Referred By Lyubov marks Referred To Contact Diagnoses PD (Parkinson's disease) ([facility]) Sialorrhea RBD (REM behavioral disorder) Procedures PROVIDER ORDERED FOLLOW UP OFFICE/OUTPATIENT NEW HIGH MDM 60 MINUTES Tremayne Gibson, DO [address] [place] [address] Referral ID Status Reason Start Date Expiration Date Visits Re quested Visits Authorized [id number] Closed 05/16/2024 08/14/2024 1 1 Reason Onset [...] Referred To Contact Diagnoses PD (Parkinson's disease) ([facility]) Procedures PROVIDER ORDERED FOLLOW UP OFFICE/OUTPATIENT NEW HIGH MDM 60 MINUTES Tremayne Gibson, DO [address] [place] [address] Phone: tel: fax: Referral ID Status Reason Start Date Expiration Date Visits Re quested Visits Authorized [id number] Closed 11/27/2024 02/25/2025 1 1 Reason Comments Consult Reason Comments Future Appointment Patient Update Reason Comments Patient Update Reason Comments Appointment (unrecognized sect ion and content) No Status Records FoundNo Status Records FoundNo Status Records FoundNo Status Records FoundNo Status Records FoundNo Status Records Found INFORMATION SOURCE (unrecogn ized section and content) DATE CREATED AUTHOR 10/10/2022 [facility] DATE CREATED AUTHOR AUTHOR'S ORGANIZ ATION 05/04/2024 [facility] DATE CREATED AUTHOR AUTHOR'S ORGANIZ ATION 02/22/2025 [facility] DATE CREATED AUTHOR AUTHOR'S ORGANIZ ATION 03/20/2025 [facility] DATE CREATED AUTHOR AUTHOR'S ORGANIZ ATION 03/21/2025 [facility] DATE CREATED AUTHOR AUTHOR'S ORGANIZ ATION 04/09/2025 [facility] Care Teams (unrecognized sec tion and content) [...] Provider Active Sta rt: November 13, 2024 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 Start Date End Date Taras Woodruff DO [address] [facility] [place] [address] PCP - General Internal Medicine 05/29/24 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 Specialty Start Date End Date Taras Woodruff DO [address] [place] [address] PCP - General Internal Medicine 05/29/24 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 Specialty Start Date End Date Taras Woodruff DO [address] [place] [address] PCP - General Internal Medicine 05/29/24 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 Specialty Start Date End Date Taras Woodruff DO [address] [place] [address] PCP - General Internal Medicine 05/29/24 Team Status: Inactive Member Role Status Dates Taras Woodruff DO Primary Care Provide r, Attending Provider Active Start: October 06, 2024 End: October 06, 2024 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 Specialty Start Date End Date Taras Woodruff DO [address] [place] [address] PCP - General Internal Medicine 05/29/24 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 Specialty Start Date End Date Taras Woodruff DO [address] [place] [address] PCP - General Internal Medicine 05/29/24 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 Specialty Start Date End Date Taras Woodruff DO [address] [place] [address] PCP - General Internal Medicine 05/29/24 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 Specialty Start Date End Date Taras Woodruff DO [address] [place] [address] PCP - General Internal Medicine 05/29/24 Team Status: Inactive Member Role Status Dates Taras Woodruff DO Primary Care Provider Active Start: March 19, 2025 End: March 19, 2025 Taras Woodruff DO Attending Provider Active Sta rt: March 19, 2025 End: March 19, 2025 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 [facility]. provides no warranty or guarantee of the accuracy or completeness of information in this document.
--- NOTE | 2025-04-16 07:18 | PC.NURSE ---
Tremors noted to left arm R/T Parkinsons per patient
[2025-04-16] MEDS: CEFAZOLIN SODIUM 2 GM/50 ML D5W PREMIX IV (07:52)
[2025-04-16] MEDS: IOHEXOL 240 MG/ML - 50 ML VIAL 480 MG INJ (08:16)
--- NOTE | 2025-04-16 08:49 | P.URON_ITS ---
Urology Surgery Operative Note Operative Note Procedure Date: 04/16/25 Time Out Performed: yes Pre-op Diagnosis: Prostate cancer Post-op Diagnosis: same as pre-op Procedures performed: 1. Iodine 125 prostate seed implantation. 2. Cystoscopy. 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 He has a Adeline score of 3+3 equal 6 in 6 cores most being on the left side. He also has a palpable abnormality on his left side. He was desirous for brachytherapy. He saw Dr. Rivera and a treatment plan was developed and a volume study was done. He now presents for I-125 prostate seed implantation and cystoscopy. He has signed an informed consent after risks were explained. Detailed description of Procedure: The patient was brought to the operating room and placed on the operating room table in the supine position. SCDs were placed on the lower extremities and turned on and functioning during the entire case. Timeout was done by all parties in the room. We all agreed upon the patient's identification and the planned procedures for this patient. Genn. anesthesia was then administered. The patient was then repositioned into the modified dorsal lithotomy position. All pressure points were satisfactorily padded. Genitalia and perineum were sterilely prepped and draped in usual fashion. I then passed a 18 Citizen [place] catheter into the bladder and filled his bladder with dilute contrast and saline. The catheter was then removed. We then brought the implant bracket to the foot of the table. The ultrasound probe was passed per rectum. The grid was placed over the perineum. We then confirmed that the positioning on the table matched the simulation. We then used ultrasonic and fluoroscopic guidance to pass needles transperineally into the prostate. We placed seeds in the predetermined locations so as to execute the treatment plan. We ended up passing 17 needles and placing 60 sources of I-125 within the prostate. This conferred a dose of 145 Kelly. Upon completion, we did live dosimetry on the table. This showed excellent coverage throughout the entire prostate. The implant bracket and grid were then removed as was the ultrasound probe. I then passed a 22 Citizen [place] Olympus cystoscope per urethra and into the bladder. The anterior urethra was normal. The prostatic urethra showed bilobar obstru ction. There was no evidence of any spacers or seeds protruding from the prostatic urethra. Also there were no spacers or seeds noted within the bladder. There were diffuse varicosities throughout the bladder but no tumors. The scope was then removed. We then passed the 18 Citizen [place] catheter in the bladder and put 10 cc of fluid in the balloon. It drained clearly. The patient was then transferred to a [facility] bed and wheeled to PACU in stable condition. Urinary Catheter Management Urinary Catheter Management Urethral: Cath placed during this visit: no
--- NOTE | 2025-04-16 09:55 | PC.NURSE ---
Educated patient on changing to leg bag. Patient refused stating he does not need leg bag and doesn't plan on leaving house while catheter is in. Family was educated on mathis care as well.
== END 2025-04-16 10:27 | disposition home or self-care (01) ==
LOC: SURGOUT 06:44
PROVIDERS: PCP Internal Medicine; Visit Provider Urology
PROC: (CPT 400; principal; 2025-04-16 08:00)
DX: C61 Malignant neoplasm of prostate (principal); R31.9 Hematuria, unspecified; R97.20 Elevated prostate specific antigen [PSA]; Z95.0 Presence of cardiac pacemaker; I48.91 Unspecified atrial fibrillation; G20.A1 Parkinson's disease without dyskinesia, without mention of fluctuations; I10 Essential (primary) hypertension; E78.5 Hyperlipidemia, unspecified
CPT/HCPCS: 55875; 36415; 72170; 76965; 77290; 77332; 77778; 99281; C1715; C2638; C2639; J0690; J1100; J1200; J1885; J2371; J2405; J3010; Q9966

== ENCOUNTER 2025-04-16 16:33 | Emergency (ER) | payer OTHER, SELFPAY ==
[2025-04-16 16:39] VITALS: BP 134/80; PULSE 96; TEMP 36.6; O2SAT 93; BMI 21.8
--- NOTE | 2025-04-16 17:11 | ED.MALEGU1 ---
HPI - Male Genitourinary General Chief complaint: Urogenital-Male Stated complaint: POST OP BLEEDING/DRAINAGE Time Seen by Provider: 04/16/25 16:39 Source: patient Mode of arrival: walk-in History of Present Illness HPI Narrative: The patient is a 65-year-old male who just had the procedure done today for insertion of the radiation seeds in his prostate, he is presented to us after 5 hours for concern of bleeding, he mentioned that he was just having a bowel movement before arrival almost few hours ago when he noted the bleeding coming from around the orifice of the penis and not through the catheter that the patient had placed after the procedure. The patient was already discharged with antibiotic from the urology service The patient presented to the ER to be evaluated for the planus Related Data Home Medications ?Medication ?Instructions ?Recorded ?Confirmed aspirin 325 mg capsule 325 mg PO DAILY 04/02/25 04/16/25 atorvastatin 80 mg tablet 80 mg PO .every other day 04/02/25 04/16/25 carbidopa 25 mg-levodopa 100 mg 1 tab PO QID 04/02/25 04/16/25 tablet diltiazem HCl 120 mg 120 mg PO Q24H 04/02/25 04/16/25 capsule,extended release 24 hr Previous Rx's ?Medication ?Instructions ?Recorded doxycycline hyclate 100 mg capsule 100 mg PO BID 5 days #10 caps 04/16/25 mirabegron 50 mg tablet,extended 50 mg PO DAILY #10 tabs 04/16/25 release 24 hr (Myrbetriq) Allergies Allergy/AdvReac Type Severity Reaction Status Date / Time No Known Drug Allergies Allergy Verified 04/02/25 11:03 Review of Systems ROS Status of ROS 10 or more systems reviewed and unremarkable except as noted in history and below [facility] Medical History (Updated 04/16/25 @ 18:04 by Shelli Sherwood MD) Dyspnea on exertion ?R06.09 - Other forms of dyspnea (ICD-10) Skin cancer ?C44.90 - Unspecified malignant neoplasm of skin, unspecified (ICD-10) Migraine ?G43.909 - Migraine, unspecified, not intractable, without status migrainosus (ICD-10) Hypertension ?I10 - Essential (primary) hypertension (ICD-10) Bradycardia ?R00.1 - Bradycardia, unspecified (ICD-10) Inguinal hernia ?K40.90 - Unilateral inguinal hernia, without obstruction or gangrene, not specified as recurrent (ICD-10) Hypercholesteremia ?E78.00 - Pure hypercholesterolemia, unspecified (ICD-10) PSA elevation ?R97.20 - Elevated prostate specific antigen [PSA] (ICD-10) BPH with obstruction/lower urinary tract symptoms ?N40.1 - Benign prostatic hyperplasia with lower urinary tract symptoms (ICD-10) ?N13.8 - Other obstructive and reflux uropathy (ICD-10) Nocturia ?R35.1 - Nocturia (ICD-10) Syncope ?R55 - Syncope and collapse (ICD-10) Pharyngeal dysphagia ?R13.13 - Dysphagia, pharyngeal phase (ICD-10) 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 - Parkinson's disease without dyskinesia, without mention of fluctuations (ICD-10) ?R49.0 - Dysphonia (ICD-10) Hyperlipidemia ?E78.5 - Hyperlipidemia, unspecified (ICD-10) Aortic dilatation ?I77.819 - Aortic ectasia, unspecified site (ICD-10) Parkinson disease ?G20.A1 - Parkinson's disease without dyskinesia, without mention of fluctuations (ICD-10) Pacemaker ?Z95.0 - Presence of cardiac pacemaker (ICD-10) Gait abnormality ?R26.9 - Unspecified abnormalities of gait and mobility (ICD-10) Atrial fibrillation ?I48.91 - Unspecified atrial fibrillation (ICD-10) Prostate cancer ?C61 - Malignant neoplasm of prostate (ICD-10) Surgical History (Updated 04/02/25 @ 11:10 by Jennifer Major NP) History of tonsillectomy ?Z90.89 - Acquired absence of other organs (ICD-10) History of hernia repair ?Z98.890 - Other specified postprocedural states (ICD-10) ?Z87.19 - Personal history of other diseases of the digestive system (ICD-10) Hx of prostate biopsy ?Z98.890 - Other specified postprocedural states (ICD-10) Family History (Updated 04/02/25 @ 11:10 by Jennifer Major NP) Other Family history of diabetes mellitus Family history of heart disease Family history of myocardial infarction Family history of prostate cancer Family history of stroke Social History (Updated 04/02/25 @ 11:04 by Jennifer Major NP) Within the past year, how often did you have a drink containing alcohol: never Score interpretation: A score less than 4 is consistent with normal alcohol consumption. Smoking status: Never smoker Non-prescribed substance use: denies use Highest level of school completed/degree received: Bachelor's degree Little interest or pleasure in doing things: not at all Feeling down, depressed, or hopeless: not at all Exam Narrative Exam Narrative: Nurses notes and vital signs reviewed and patient is not hypoxic. General: Well-appearing and in no apparent distress. Skin: Warm, dry, no pallor noted. No rash. Head: Normocephalic, atraumatic. GI: Abdomen is soft, non-distended. Normal bowel sounds. No masses appreciated. No tenderness to palpation. No rebound, guarding, or rigidity noted. The patient caring nurse was present at the bedside: The patient have no active bleeding around the penis and only 150 cc of bloody urine present in the catheter bag Neurological: A&O x4. No cranial nerve dysfunction observed. No truncal ataxia. Moves all extremities. Sensation intact. Psychiatric: Cooperative and interactive. Normal mood and affect. Constitutional Vital Signs, click to edit/add: Last Vital Signs Temp 97.9 F 04/16/25 16:39 Pulse 96 H 04/16/25 16:39 Resp 18 04/16/25 16:39 BP 134/80 04/16/25 16:39 Pulse Ox 93 L 04/16/25 16:39 O2 Del Method Room Air 04/16/25 16:39 Course Vital Signs Vital signs: Vital Signs Temperature 97.9 F 04/16/25 16:39 Pulse Rate 96 H 04/16/25 16:39 Respiratory Rate 18 04/16/25 16:39 Blood Pressure 134/80 04/16/25 16:39 Pulse Oximetry 93 L 04/16/25 16:39 Oxygen Delivery Method Room Air 04/16/25 16:39 Temperature 97.9 F 04/16/25 16:39 Pulse Rate 96 H 04/16/25 16:39 Respiratory Rate 18 04/16/25 16:39 Blood Pressure 134/80 04/16/25 16:39 Pulse Oximetry 93 L 04/16/25 16:39 Oxygen Delivery Method Room Air 04/16/25 16:39 MDM - Male Genitourinary MDM Narrative Medical decision making narrative: The patient had irrigation of the catheter that showed no blockage And the urine was clearing up in the catheter bag The patient case was discussed with and as long as the bleeding stopped and the patient was monitored in the ER for around an hour during which she did not have any bleeding The patient just to continue taking the antibiotic he was prescribed in addition to monitoring his symptoms The bleeding mostly secondary to straining while having bowel movement The patient is to follow up with primary care physician in next 2-3 days or to return to the emergency department should any of the signs or symptoms worsen or new symptoms develop. The patient agrees with the following Diagnosis and Treatment plan and the patient will be discharged home. Discharge Plan Discharge Chief Complaint: Urogenital-Male Clinical Impression: Hematuria Patient Disposition: Home, Self-Care Time of Disposition Decision: 18:04 Condition: Good Prescriptions / Home Meds: No Action atorvastatin 80 mg tablet 80 mg PO .every other day carbidopa-levodopa 25-100 mg tablet 1 tab PO QID diltiazem HCl 120 mg capsule,extended release 24hr 120 mg PO Q24H aspirin 325 mg capsule 325 mg PO DAILY doxycycline hyclate 100 mg capsule 100 mg PO BID 5 Days Qty: 10 0RF mirabegron [Myrbetriq] 50 mg tablet extended release 24 hr 50 mg PO DAILY Qty: 10 0RF Print Language: Tongan Instructions: Hematuria (ED) Referrals: Taras Pickett DO [Primary Care Provider, Internal Medicine] - 1 week
--- OUTSIDE RECORDS SUMMARY | 2025-04-16 17:16 | XMS_ITS | CCD ---
Author Organization [facility] Care Team Providers Care Electronic Warfare Officer Name Role Phone Unavailable Primary Care Provider [...] Care Provider TARAS WOODRUFF Primary Care Physician [phone] Taras Woodruff DO Primary Care Provider [phone] Taras Woodruff DO Attending Provider Cole Nash MD Attending Provider Tremayne Gibson DO Attending Provider Cole Nash Attending Unavailable Cole Nash Admitting Unavailable Taras Woodruff Primary Care Unavailable Tremayne Gibson Admitting Unavailable Tremayne Gibson Attending Unavailable Taras Woodruff DO Primary Care Provider Shabana Page APRN Attending Provider Taras Woodruff DO Attending Provider [phone] SATHISH SANDRA Attending Unavailable EYAL RAE Referring Unavailable BUTCH, EYAL Attending Unavailable EYAL RAE Referring Unavailable BLANCAZHEN Referring Unavailable BUTCH, EYAL Referring Unavailable AREN JONES Attending Unavailable Cole NASH Attending Unavailable Cole NASH Attending Unavailable HCARITY, Cole Contreras Attending Unavailable Cole NASH Attending [...] mg per tablet Indications: PD (Parkinson's disease) ([facility]) Take 1 tablet by mouth [...] Start: 08-10-2023 take 1 capsule by mo [facility] every eight hours Benzonatate 100 MG [...] 01-09-2025 Unclassified (1 source) PD (Parkinson's disease) ([facility]); Translations: [PD (Parkinson's disease) (HCC)] [...] Test Name Value Interpretation Reference Range Facility [facility] 04-01-2025 CNOV Office Visit (RADTSA ) COLE RAMOS ([id number]) 1960 M Date Time Provider Department 04/01/25 [...] patient or surrogate. Referring Provider: Adama MARTÍNEZ [[id number]] Allergies As of Date: 04/01/2025 (No Known [...] Encounter Status:Closed by Adama MARTÍNEZ on 04/08/25 [facility] Olivia 03-31-2025 [facility] Telephone (RADWavo.meA) COLE RAMOS ([id number]) 1960 M Date Time Provider Department 03/31/25 [...] Status:Closed by DEEPIKA MERINO on 03/31/[address] [facility] Office Visiton 03-18-2025 Follow-up visit [id number] Jurgen Ramos 1960 M Date Provider Department Center 03/18/2025 166-AREN JONES Family History Family Status - Relation Status Age at Mother Alive Father Level of Service:53070 PA OFFICE/OUTPATIENT ESTABLISHED MOD MDM 30 MIN Reason for Visit and Comments: Pre-op Exam [455107] Atrial Fibrillation [80] Normal [facility] No Panel InformationOrdered By: Shabana Page on 03-13-2025 Quick Strep (POC) [facility] CNPNon 02-09-2025 CNPN Telephone (RADTSA) COLE RAMOS ([id number]) 1960 M Date Time Provider Department 02/09/25 Adama MARTNÍEZ During your visit today, we recorded the [...] Encounter Status:Closed by DEEPIKA MERINO on 03/13/25 [facility] COLE RAM[facility] ([id number]) 1960 M Date Time Provider Department 01/14/25 [...] Status:Closed by JENNIFER SAL on 01/15/[address] [facility] 36on 01-12-2025 36 CARLOS oLu Cardiology Clinical Support Pool Caller: Unspecified (3 days ago, 1:41 PM) Previous Messages Patient Call (Newest Message First) View All Conversations on this Encounter Bertha Posada MA routed conversation to Cardiology Clinical Support Pool3 days ago Meg Wilkinson MA routed conversation to [facility] Cardiology Clinic Clinical Support Pool3 days ago Meg Wilkinson MA3 days ago RH Pili with [facility] would like to know if pt is pacemake dependent? Okay to leave message [phone] radiation nurses station. Spoke to [facility] advised them patient is not pacemaker dependent. Normal [place] 9133801-09-2025 36 Pili with [facility] would like to know if pt is pacemake dependent? Okay to leave message [phone] radiation nurses station. Normal [facility] CNOVon 01-09-2025 CNOV Office Visit (RADTSA ) COLE RAMOS ([id number]) 1960 [place] Date Time Provider Department 01/09/25 [...] biopsies taken this area. 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 Normal [facility] Olivia 01-09-2025 [facility] Telephone (RADTSA) COLE RAMOS ([id number]) 1960 M Date Time Provider Department 01/09/25 Adama MARTÍNEZ During your visit today, we recorded the following information about you: Deepika Merino RN 01/09/2025 1:44 PM Signed I called and spoke to Meg at [phone], Dr. Santos's office, asking if Cole is pacemaker dependent. She is unsure but will call back [facility] with an update. NATHAN Gonzales [place], RN 01/12/2025 1:19 PM Signed Call received from NASH at [facility] Cardiology. PT is NOT pacemaker dependent. 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 Patient/authorized sales representative leather goods agreed to proceed Taras Woodruff DO [address] [facility] [address] Dear Taras Woodruff DO: I had the [...] He recalls a previous swallow study at [facility] and participated in speech therapy for 3-4 [...] CR (TIA (more content not included)... Normal [facility] Ambulatory Visit Summaryon 0 01-05-2025 Ambulatory [...] Where: [facility] [address] [place] [address]- [phone] Someone Will Contact You Regarding These Appointments [facility] External Ambulatory Referral, Other (needs to be [...] involve imagin (more content not included)... Normal [facility] Ambulatory Visit Summary Ambulatory Visit Summary [...] Where: [facility] [address] [place] [address] [phone] Someone Will Contact You Regarding These Appointments [facility] External Ambulatory Referral, Other (needs to be [...] involve imagin (more content not included)... Normal [facility] Urology Office/Clinic Noteon 01-05-2025 Urology Office/Clinic [...] [place] [employer]. Denied prostate MRI at [facility] due to pacemaker ,was advised imaging could [...] URL [facility] [address], [place] [phone] Additional Instructions: referral to rad/onc Patient Education [...] Not Given (more content not included)... Normal [facility] Comment on above: Result Comment: Elec [...] Pathology Request for Lab Deb Normal [facility] Comment on above: Order Comment: PROST ATE BX Result Comment: See report. Scanned copy available in EMR. PERFORMED BY: [place] [address] PATHOLOGIST METAL DRILL OPERATOR KARLA AGUILAR M.D. Performed By: #### P ATH TO [facility] #### [address] Ambulatory Visit Summaryon 0 11-24-2024 Ambulatory [...] bx Where: [facility] [address], [place] [address] [phone] Medications What How Much When Why Instructions New ciprofloxacin (Cipro 500 mg Tab) 1 Tablets By Mouth 2 times a day Elevated PSA Duration: 7 Days start 3 days prior to procedure Pickup at [facility]/pharmacy #[id number] Unchanged aspirin (aspirin 325 mg Oral EC [...] physician if questions or concerns Pharmacy Information [facility]/pharmacy #[id number]: [address], [place] [id number] [phone] Allergies No Known Allergies Problems Ongoing - [...] including vitamins, herbs, eye drops, creams, and rqkf-ltp-olzewaq medicines. ??? Any surgeries you have had. [...] medicines given (more content not included)... Normal [facility] Ambulatory Visit Summary Ambulatory Visit Summary [...] [facility] [address], [place] [phone] Medications What How Much When Instructions Unchanged [...] including vitamins, herbs, eye drops, creams, and vblw-etn-uwljwou medicines. ??? Any surgeries you have had. [...] during th (more content not included)... Normal [facility] No Panel Informationon 11-13 Free Prostate Specific Antigen 0.51 ng/mL N/A [facility] Comment on above: Uma ECLIA methodol ogy. Prostate Specific Antigen Total 4.1 ng/mL Abnormal 0.0-4.0 [facility] Comment on above: Uma ECLIA methodol ogy.According to the [employer] [employer], Serum PSAshould decrease and remain [...] for any other population of men.Performed at: [facility] [id number] Director: Liam Galvan PhD, Phone: [phone] 36on 10-16-[address] Rae. You saw this patient in Aug 2024 and reduced cardizem down to 120mg from 240mg because his BP was 98/70 in the office. 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 BP is 138 systolic. Can he go back up to cardizem 240mg daily? Per Dr. Rae : we need to see what the event is.. have a device check to see what rhythm issue it was Spoke with patient and Aldair from [facility]. We will do check in [facility] on 10/20/2024 at 10am. Normal [facility] Office Visiton 09-02-2024 Follow-up visit [id number] Jurgen Ramos S 1960 M Date Provider Department Center 09/02/2024 EYAL VILLARREAL [facility] No family history on file Level of Service:42975 PA OFFICE/OUTPATIENT ESTABLISHED LOW MDM 20 MIN Normal [facility] 36on 07-10-2024 36 Regarding labs from [...] of things going on for him. Normal [facility] Orders Onlyon 07-02-2024 Orders Only [id number] Jurgen Ramos farideh S 1960 M Date Provider Department Center 07/02/[address] [place] [address] SATHISH [facility] C[facility] No family history on file Normal [facility] CNOVon 05-29-2024 CNOV Office Visit (NRESAV ) COLE RAMOS ([id number]) 1960 M Date Time Provider Department 05/29/24 1:00 PM TREMAYNE GIBSON NRESAV During your visit today, we recorded the following information about you: Pulse Blood pressure 74/minute 141/85 Tremayne Gibson DO 05/29/2024 1:39 PM Signed [facility] - FOLLOW UP EVALUATION Taras Woodruff DO [address] [facility] [address] Dear Taras Woodruff DO: I had the [...] Examination: G (more content not included)... [facility] (FVPRAD) COLE RAMOS ([id number]) 1960 M Date Time Provider Department 05/03/24 MARI ROSAS FVPRAD During your visit today, we recorded the following information about you: Mari Rosas, 05/03/2024 12:42 PM Signed Patient called stating he was out of town and needed 10 pills of Sinemet to [facility] in [place]. 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 Call the office if any muscle aches or concerns. Have follow up labs drawn in 2-3 months (June or July). Must be fasting labs. Normal [facility] Office Visiton 04-16-2024 Follow-up visit [id number] Jurgen Ramos S 1960 M Date Provider Department Center 04/16/2024 [id number] No family history on file Level of Service:64148 PA OFFICE/OUTPATIENT ESTABLISHED MOD MDM 30 MIN Normal [facility] CBC AUTO DIFFon 10-03-2022 BASO # 0.0 103/ul Normal 0.0-0.[address] [facility] Comment on above: Performed By: #### C BC #### [facility] [address] [place] [address] Dr. Rosalio Burks Basophils/100 WBC (Bld) 0.3 % Normal 0.2-2.[address] [facility] Comment on above: Performed By: #### C BC #### [facility] [address] [place] [address] Dr. Rosalio Burks EO # 0.1 103/ul Normal 0.0-0.[address] [facility] Comment on above: Performed By: #### C BC #### [facility] [address] [place] [address] [address] Rosalio Burks Eosinophils/100 WBC (Bld) 1.0 % Normal 0.9-7.[address] [facility] Comment on above: Performed By: #### C BC #### [facility] [address] [place] [address] Dr. Rosalio Burks Erythrocyte distribution width (RBC) [Ratio] 11.7 % Normal 11.0-15.[address] [facility] Comment on above: Performed By: #### C BC #### [facility] [address] [place] [address] Dr. Rosalio Burks Hematocrit (Bld) [Volume fraction] 43.2 % Normal 42.0-54.[address] [facility] Comment on above: Performed By: #### C BC #### [facility] [address] [place] [address] Dr. Rosalio Burks Hemoglobin (Bld) [Mass/Vol] 15.0 g/dL Normal 14.0-18.[address] [facility] Comment on above: Performed By: #### C BC #### [facility] [address] [place] [address] Dr. Rosalio Burks IG # 0.02 10e3/ul Normal 0.00-0.[address] [facility] Comment on above: Performed By: #### C BC #### [facility] [address] [place] [address] Dr. Rosalio Burks IG % 0.3 % Normal 0.0-0.[address] [facility] Comment on above: Performed By: #### C BC #### [facility] [address] [place] [address] Dr. Rosalio Burks LYMPH # 1.5 103/ul Normal 1.2-3.[address] [facility] Comment on above: Performed By: #### C BC #### [facility] [address] [place] [address] Dr. Rosalio Burks Lymphocytes/100 WBC (Bld) 23.3 % Normal 20.5-60.[address] [facility] Comment on above: Performed By: #### C BC #### [facility] [address] [place] [address] Dr. Rosalio Burks MANUAL DIFF REQ NO Normal [facility] Comment on above: Performed By: #### C BC #### [facility] [address] [place] [address] Dr. Rosalio Burks MCH (RBC) [Entitic mass] 31.9 pg Normal 25.9-34.[address] [facility] Comment on above: Performed By: #### C BC #### [facility] [address] [place] [address] Dr. Rosalio Burks MCHC (RBC) [Mass/Vol] 34.7 g/dL Normal 29.9-35.[address] [facility] Comment on above: Performed By: #### C BC #### [facility] [address] [place] [address] [address] Rosalio Burks MCV (RBC) [Entitic vol] 91.9 fL Normal 80.0-94.[address] [facility] Comment on above: Performed By: #### C BC #### [facility] [address] [place] [address] [address] Rosalio Burks MONO # 0.6 103/ul Normal 0.3-0.8 [facility] Comment on above: Performed By: #### C BC #### [facility] [address] [place] [address] Dr. Rosalio Burks Monocytes/100 WBC (Bld) 10.1 % Normal 1.7-12.[address] [facility] Comment on above: Performed By: #### C BC #### [facility] [address] [place] [address] Dr. Rosalio Burks NEUT # 4.0 103/ul Normal 1.4-6.[address] [facility] Comment on above: Performed By: #### C BC #### [facility] [address] [place] [address] Dr. Rosalio Burks Neutrophils/100 WBC (Bld) 65.0 % Normal 43.0-75.[address] [facility] Comment on above: Performed By: #### C BC #### [facility] [address] [place] [address] Dr. Rosalio Burks Platelet mean volume (Bld) [Entitic vol] 10.3 fL Normal 9.5-13.[address] [facility] Comment on above: Performed By: #### C BC #### [facility] [address] [place] [address] Dr. Rosalio Burks PLT 268 103/ul Normal 150-450 [facility] Comment on above: Performed By: #### C BC #### [facility] [address] [place] [address] Dr. Rosalio Burks RBC 4.70 106/ul Normal 4.70-6.10 [facility] Comment on above: Performed By: #### C BC #### [facility] [address], [place] [address] Dr. Rosalio Burks WBC 6.2 103/ul Normal 4.0-11.0 [facility] Comment on above: Performed By: #### C #### [facility] [address], [place] [address] Dr. Rosalio Burks Complete Blood Count and Dif gerald 10-03-2022 Anisocytosis Ql (Bld) Nor [employer] Other Basophilic stippling LM Ql (Bld) [employer] Other RBC morphology finding Nom (Bld) [employer] Other Complete Blood Count and Diff [employer] Other Comprehensive Metabolic Pane laura 10-03-2022 Albumin [Mass/Vol] 3.737258 g/dL 3.4-5.0 g/dL [employer] Other Calcium [Mass/Vol] 9.1900612 mg/dL 8.5-10 .1 mg/dL [employer] Other CO2 [Moles/Vol] 30.70852540 mmol/L 21.0-3 2.0 mmol/L [employer] Other Creatinine [Mass/Vol] 1.19836784 mg/dL 0. 70-1.30 mg/dL [employer] Other Potassium [Moles/Vol] 4.77863723 mmol/L 3 .5-5.1 mmol/L [employer] Other Protein [Mass/Vol] 7.387461 g/dL 6.4-8.2 g/dL [employer] Other Urea nitrogen [Mass/Vol] 17.3950015 mg/dL 7.0-18.0 mg/dL [employer] Other Comprehensive Metabolic Panel see note [employer] Other Comprehensive Metabolic Panel 141 mmol/L 136-145 mmol/L [employer] Other Comprehensive Metabolic Panel 83 mg/dL 74-106 mg/dL [employer] [facility] [employer] Other Comprehensive Metabolic Panel >60 mL/min/1.73m2 >=60 mL/min/1.73 m2 [employer] [facility] [employer] Other Comprehensive Metabolic Panel 0.3 mg/dL 0.2-1.0 mg/dL [employer] Other Comprehensive Metabolic Panel 3.4 g/dL [employer] Other LIPID PROFILEon 10-03-2022 CHOL-HDL RATIO NORM SEE BELOW Normal [facility] Comment on above: Result Comment: 3.3 - 4.4 LOW RISK 4.4 - 7.1 AVERAGE RISK 7.1 - 11.0 MODERATE RISK >11.0 HIGH RISK Performed By: #### C MP, LIPID #### [facility] [address] [place] [address] [address] Rosalio Burks Cholesterol [Mass/Vol] 202 mg/dL Critically high <=200 mg/dL [facility] Comment on above: Performed By: #### C MP, LIPID #### [facility] [address] [address] [address] Rosalio Burks Cholesterol in HDL [Mass/Vol] 33 mg/dL Critically low 40-60 mg/dL [facility] Comment on above: Performed By: #### C MP, LIPID #### [facility] [address] [address] [address] Rosalio Burks Cholesterol in LDL [Mass/Vol] 106.4 mg/dL Normal [facility] Comment on above: Performed By: #### C MP, LIPID #### [facility] [address] [address] [address] Rosalio Burks Cholesterol.total/Cho lesterol in HDL [Mass ratio] 6.1 {ratio} [facility] Comment on above: Performed By: #### C MP, LIPID #### [facility] [address] [address] [address] Rosalio Burks HDL NORMAL > or = 60 mg/dl - LO W CARDIOVASCULAR RISK <40 mg/dl - HIGH CARDIOVASCULAR RISK Normal [facility] Comment on above: Performed By: #### C MP, LIPID #### [facility] [address], [place] [address] Dr. Rosalio Burks LDL CALC NORMAL SEE BELOW Normal [facility] Comment on above: Result Comment: <100 mg/dl OPTIMAL 100 - 129 mg/dl NEAR OR ABOVE OPTIMAL 130 - 159 mg/dl BORDERLINE HIGH 160 - 189 mg/dl HIGH >190 mg/dl VERY HIGH Performed By: #### C MP, LIPID #### [facility] [address] [address] [address] Rosalio Burks Triglyceride [Mass/Vol] 313 mg/dL Critically high <=150 mg/dL [facility] Comment on above: Performed By: #### C MP, LIPID #### [facility] [address] [address] [address] Rosalio Burks VLDL CALC 62.6 mg/dL Normal [facility] Comment on above: Performed By: #### C MP, LIPID #### [facility] [address] [address] [address] Rosalio Burks Lipid Panelon 10-03-2022 Lipid Panel > or = 60 mg/dl - LO W CARDIOVASCULAR RISK <40 mg/dl - HIGH CARDIOVASCULAR RISK [employer] Other Lipid Panel SEE BELOW [employer] Other Lipid Panel 106.4 mg/dL [employer] Other Lipid Panel 62.6 mg/dL [employer] Other PROF 14(COMP METB)on 023 Albumin [Mass/Vol] 3.9 g/dL Normal 3.4-5.0 [facility] Comment on above: Performed By: #### C MP, LIPID #### [facility] [address] [address] [address] Rosalio Burks Albumin/Globulin [Mass ratio] 1.1 {ratio} [facility] Comment on above: Performed By: #### C MP, LIPID #### [facility] [address] [id number] Rosalio Burks ALP [Catalytic activity/Vol] 108 U/L 46-116 U/L [facility] Comment on above: Performed By: #### C MP, LIPID #### [facility] [address] [place] [address] Dr. Rosalio Burks ALT [Catalytic activity/Vol] 15 U/L Critically low 16-63 U/L [facility] Comment on above: Performed By: #### C MP, LIPID #### [facility] [address] [place] [address] Dr. Rosalio Burks Anion gap [Moles/Vol] 10.4 mmol/L [facility] Comment on above: Performed By: #### C MP, LIPID #### [facility] [address] [place] [address] Dr. Rosalio Burks AST [Catalytic activity/Vol] 15 U/L 15-37 U/L [facility] Comment on above: Performed By: #### C MP, LIPID #### [facility] [address] [place] [address] Dr. Rosalio Burks Bilirubin [Mass/Vol] 0.3 mg/dL Normal 0.2-1.[address] [facility] Comment on above: Performed By: #### C MP, LIPID #### [facility] [address] [place] [address] Dr. Rosalio Burks Calcium [Mass/Vol] 9.0 mg/dL Normal 8.5-10.1 [facility] Comment on above: Performed By: #### C MP, LIPID #### [facility] [address] [place] [address] Dr. Rosalio Bukrs Chloride [Moles/Vol] 104 mmol/L 98-107 mmol/L [facility] Comment on above: Performed By: #### C MP, LIPID #### [facility] [address] [place] [address] Dr. Rosalio Burks CO2 [Moles/Vol] 30.7 mmol/L Normal 21.0-32.0 [facility] Comment on above: Performed By: #### C MP, LIPID #### [facility] [address] [place] [address] Dr. Rosalio Burks Creatinine [Mass/Vol] 1.09 mg/dL Normal 0.70-1.[address] [facility] Comment on above: Performed By: #### C MP, LIPID #### [facility] [address] [place] [address] Dr. Rosalio Burks EGFR-AF NIGERIAN >60 Normal >=60 [facility] Comment on above: Performed By: #### C MP, LIPID #### [facility] [address] [place] [address] Dr. Rosalio Burks EGFR-NON AF NIGERIAN >60 Normal >=[address] [facility] Comment on above: Performed By: #### C MP, LIPID #### [facility] [address] [place] [address] Dr. Rosalio Burks Globulin (S) [Mass/Vol] 3.4 g/dL Normal [facility] Comment on above: Performed By: #### C MP, LIPID #### [facility] [address] [place] [address] Dr. Rosalio Burks Glucose [Mass/Vol] 83 mg/dL Normal 74-106 [facility] Comment on above: Performed By: #### C MP, LIPID #### [facility] [address] [place] [address] Dr. Rosalio Burks Potassium [Moles/Vol] 4.1 mmol/L Normal 3.5-5.[address] [facility] Comment on above: Performed By: #### C MP, LIPID #### [facility] [address] [place] [address] Dr. Rosalio Burks Protein [Mass/Vol] 7.3 g/dL Normal 6.4-8.2 [facility] Comment on above: Performed By: #### C MP, LIPID #### [facility] [address] [place] [address] Dr. Rosalio Burks Sodium [Moles/Vol] 141 mmol/L Normal 136-145 [facility] Comment on above: Performed By: #### C MP, LIPID #### [facility] [address] [place] [address] Dr. Rosalio Burks Urea nitrogen [Mass/Vol] 17.0 mg/dL Normal 7.0-18.[address] [facility] Comment on above: Performed By: #### C MP, LIPID #### [facility] [address], [place] [address] Dr. Rosalio Burks Urea nitrogen/Creatinine [Mass ratio] 15.6 mg/mg [facility] Comment on above: Performed By: #### C MP, LIPID #### [facility] [address], [place] [address] Dr. Rosalio Burks XR MODIFIED BARIUM SWALLOWon [...] by: MAMIE HOLDER Date: 2021-11-01 09:[address] [facility] Vital Signs Date Time Vital Sign Value Performing Clinician Facility 03-19-2025 11:06-040 Body height 198.12 cm [employer] Work Phone: [facility] 03-19-2025 11:06-0400 Body mass index (BMI) [Ratio] 21.9 kg/m2 Spyder Lynk DO Work Phone: [facility] 03-19-2025 11:06-040 Body temperature 97.3 [degF] Taras Capigami DO Work Phone: [facility] 03-19-2025 11:06-040 Body weight 85.95 kg Spyder Lynk DO Work Phone: [facility] 03-19-2025 11:06-0400 Diastolic blood pressure 88 mm[Hg] [employer] Work Phone: [facility] 03-19-2025 11:06-0400 [...] 195.6 cm ZAK Martínez MD Work Phone: [facility] 01-09-2025 11:04-0400 Body mass index (BMI) [Ratio] 23.14 kg/m2 ZAK Martínez MD Work Phone: [facility] 01-09-2025 11:04-0400 Body temperature 98.1 [degF] ZAK Martínez MD Work Phone: [facility] 01-09-2025 11:04-0400 Body weight 88.5 kg ZAK Martínez MD Work Phone: [facility] 01-09-2025 11:04-0400 Diastolic blood pressure 84 mm[Hg] ZAK Martínez MD Work Phone: [facility] 01-09-2025 11:04-0400 Heart rate 94 /min ZAK Martínez MD Work Phone: [facility] 01-09-2025 11:04-0400 Respiratory rate 16 /min ZAK Martínez MD Work Phone: [facility] 01-09-2025 11:04-0400 SaO2% (BldA) [Mass fraction] 97 % ZAK Martínez MD Work Phone: [facility] 01-09-2025 11:04-0400 Systolic blood pressure 120 mm[Hg] ZAK Martínez MD Work Phone: [facility] 01-08-2025 15:36-0400 Diastolic blood pressure 78 mm[Hg] Tremayne Gibson DO Work Phone: [facility] 01-08-2025 15:36-0400 Heart rate 80 /min Tremayne Gibson DO Work Phone: [facility] 01-08-2025 15:36-0400 Systolic blood pressure 110 mm[Hg] Tremayne Gibson DO Work Phone: [facility] 10-06-2024 09:25-0500 Body height 198.12 cm [facility] 10-06-2024 09:25-0500 Body mass index (BMI) [Ratio] 22.8 kg/m2 [facility] 10-06-2024 09:25-0500 Body temperature 97.4 [degF] [facility] 10-06-2024 09:25-0500 Body weight 89.58 kg [facility] 10-06-2024 09:25-0500 Diastolic blood pressure 79 mm[Hg] [facility] 10-06-2024 09:25-0500 Heart rate 94 /min [facility] 10-06-2024 09:25-0500 Respiratory rate 16 /min [facility] 10-06-2024 09:25-0500 SaO2% (BldA) [Mass fraction] 98 % [facility] 10-06-2024 09:25-0500 Systolic blood pressure 111 mm[Hg] [facility] 05-29-2024 13:02-0400 Diastolic blood pressure 85 mm[Hg] Tremayne Gibson DO Work Phone: [facility] 05-29-2024 13:02-0400 Heart rate 74 /min Tremayne Gibson DO Work Phone: [facility] 05-29-2024 13:02-0400 Systolic blood pressure 141 mm[Hg] Tremayne Gibson DO Work Phone: [facility] 11-15-2023 10:54-0400 Diastolic blood pressure 75 mm[Hg] Tremayne Gibson DO Work Phone: [facility] 11-15-2023 10:54-0400 Heart rate 106 /min Tremayne iGbson DO Work Phone: [facility] 11-15-2023 10:54-0400 SaO2% (BldA) [Mass fraction] 97 % Tremayne Gibson DO Work Phone: [facility] 11-15-2023 10:54-0400 Systolic blood pressure 141 mm[Hg] Tremayne Gibson DO Work Phone: [facility] 08-16-2023 10:15-0500 Body height 190.5 cm Taras Ball Other [employer] Other 08-16-2023 10:15-0500 Body mass index (BMI) [Ratio] 22.3 kg/m2 Taras Ball Other [employer] Other 08-16-2023 10:15-0500 Body weight 80.92 kg Taras Ball Other [employer] Other 08-16-2023 10:15-0500 Diastolic blood pressure 70 mm[Hg] Taras Ball Other [employer] Other 08-16-2023 10:15-0500 Respiratory rate 12 /min Taras Ball Other [employer] Other 08-16-2023 10:15-0500 Systolic blood pressure 109 mm[Hg] Taras Ball Other [employer] Other 05-10-2023 10:46-0400 Diastolic blood pressure 87 mm[Hg] Tremayne Gibson DO Work Phone: [facility] 05-10-2023 10:46-0400 Heart rate 85 /min Tremayne Gibson DO Work Phone: [facility] 05-10-2023 10:46-0400 Systolic blood pressure 125 mm[Hg] Tremayne Gibson DO Work Phone: [facility] 03-13-2023 13:30-0400 Body height 190.5 cm Taras Ball Other [employer] Other 03-13-2023 13:30-0400 Body mass index (BMI) [Ratio] 24.42 kg/m2 Taras Ball Other [employer] Other 03-13-2023 13:30-0400 Body weight 88.63 kg Taras Ball Other [employer] Other 03-13-2023 13:30-0400 Diastolic blood pressure 78 mm[Hg] Taras Ball Other [employer] Other 03-13-2023 13:30-0400 Respiratory rate 12 /min Taras Ball Other [employer] Other 03-13-2023 13:30-0400 Systolic blood pressure 111 mm[Hg] Taras Ball Other [employer] Other 10-03-2022 14:00-0500 Body height 190.5 cm Taras Ball Other [employer] Other 10-03-2022 14:00-0500 Body mass index (BMI) [Ratio] 25.32 kg/m2 Taras Ball Other [employer] Other 10-03-2022 14:00-0500 Body weight 91.9 kg Taras Ball Other [facility] Other 10-03-2022 14:00-0500 Diastolic blood pressure 82 mm[Hg] Taras Ball Other [employer] Other 10-03-2022 14:00-0500 Respiratory rate 12 /min Taras Ball Other [employer] Other 10-03-2022 14:00-0500 Systolic blood pressure 118 mm[Hg] Taras Ball Other [employer] Other 09-19-2022 12:40-0500 Body height 190.5 cm Tabby Lindo Other [employer] Other 09-19-2022 12:40-0500 Body mass index (BMI) [Ratio] 26.25 kg/m2 Tabby Lindo Other [employer] Other 09-19-2022 12:40-0500 Body temperature 98.2 [degF] Tabby Lindo Other [employer] Other 09-19-2022 12:40-0500 Body weight 95.26 kg Tabby Lindo Other [facility] Other 09-19-2022 12:40-0500 Respiratory rate 18 /min Tabby Lindo Other [facility] Other 09-19-2022 12:40-0500 SaO2% (BldA) [Mass fraction] 96 % Tabby Lindo Other [facility] Other 09-08-2022 07:53-0500 Body height 195.6 cm Tremayne Arevalowarrenottoniel DO Work Phone: [facility] 09-08-2022 07:53-0500 Body weight 93.58 kg Tremayne Arevalokendrickclarencesavannaottoniel DO Work Phone: [facility] 09-08-2022 07:53-0500 Diastolic blood pressure 93 mm[Hg] Tremayne Gibson DO Work Phone: [facility] 09-08-2022 07:53-0500 Heart rate 82 /min Tremayne Paige DO Work Phone: [facility] 09-08-2022 07:53-0500 SaO2% (BldA) [Mass fraction] 94 % Tremayne Paige DO Work Phone: [facility] 09-08-2022 07:53-0500 Systolic blood pressure 146 mm[Hg] Tremayne Gibson DO Work Phone: [facility] 12-29-2021 13:46-0400 Diastolic blood pressure 82 mm[Hg] Tremayne Arevalodaniel DO Work Phone: [facility] 12-29-2021 13:46-0400 Heart rate 99 /min Tremayne Arevalokendrickclarencesavannaottoniel DO Work Phone: [facility] 12-29-2021 13:46-0400 Systolic blood pressure 114 mm[Hg] Tremayne Coylesavannaottoniel DO Work Phone: [facility] 11-10-2021 08:00-0400 Diastolic blood pressure 89 mm[Hg] Hero Cuellar PT Work Phone: [facility] 11-10-2021 08:00-0400 Heart rate 83 /min Hero Cuellar PT Work Phone: [facility] 11-10-2021 08:00-0400 Systolic blood pressure 134 mm[Hg] Hero Cuellar PT Work Phone: [facility] Encounters Encounter Date Encounter Type Care Provider Facility Start: 05-18-2025 ambulatory Cole Guilleni ty:[facility] Start: 04-23-2025 ambulatory Cole Guilleni ty:[facility] Start: 04-16-2025 ambulatory Cole Huddleston ty:[id number] Start: 04-10-2025 End: 04-10-2025 Patient encounter procedure Ccf Provider [facility] Department Start: 04-07-2025 End: 04-09-2025 Patient [...] Start: 04-01-2025 End: 04-02-2025 ambulatory Adama MARTÍNEZ Facility:[facility] Start: 03-31-2025 End: 03-31-2025 Telephone encounter G Viktor Martínez MD Work Phone: Radiation Oncology Comment on above: Appointment Start: 03-30-2025 ambulatory Cole Huddleston ty:[facility] Start: 03-19-2025 End: 03-19-2025 ambulatory Taras Woodruff DO Work Phone: [facility] Work Phone: Start: 03-19-2025 End: 03-19-2025 Patient encounter procedure Taras Woodruff DO -[facility] Work Phone: Start: 03-18-2025 End: 03-19-2025 ambulatory [facility] Start: 03-18-2025 End: 03-19-2025 Encounter for other preprocedural examination [facility] Start: 03-13-2025 End: 03-13-2025 ambulatory Taras Woodruff DO Work Phone: [facility] Work Phone: Start: 03-13-2025 End: 03-13-2025 Patient encounter procedure Shabana Palomino NETWORK TECHNICAL ANALYST -[facility] Work Phone: Start: 03-12-2025 ambulatory Cole Huddleston ty:[facility] Start: 02-24-2025 End: 02-24-2025 ambulatory EYAL RAE [facility] Start: 02-20-2025 ambulatory ZHEN RIOS [facility] Start: 02-04-2025 End: 02-04-2025 Patient encounter procedure Tremayne Gibson DO -[facility] Work Phone: Start: 02-04-2025 End: 02-04-2025 ambulatory Taras Woodruff DO Work Phone: [facility] Work Phone: Start: 01-16-2025 End: 01-16-2025 Patient encounter procedure Ccf Provider [facility] Department Start: 01-14-2025 End: 01-15-2025 Telephone [...] End: 01-09-2025 ambulatory Adama MARTÍNEZ Facility:[facility] Start: 01-08-2025 End: 01-08-2025 Office outpatient visit 25 minutes Tremayne Gibson DO Work Phone: Neurology Comment on above: Parkinson's disease without dyskinesia or fluctuating manifestations (HCC) (Primary Dx); Slow transit constipation; Dysphagia, unspecified type Start: 01-08-2025 End: 01-08-2025 ambulatory TREMAYNE GIBSON Facility:[facility] Start: 01-05-2025 End: 01-05-2025 ambulatory Cole NASH Facility:[facility] Start: 01-05-2025 End: 01-05-2025 Patient encounter procedure Cole NASH [facility] Start: 12-23-2024 End: 12-23-2024 ambulatory Cole Nash Facility:[facility] Start: 12-23-2024 End: 12-23-2024 Departed Referred Cole Nash MD -[facility] Work Phone: Start: 12-23-2024 End: 12-23-2024 ambulatory Cole NASH Facility:[id number] Start: 12-11-2024 ambulatory EYAL [facility] Start: 11-24-2024 End: 11-24-2024 ambulatory Cole NASH Facility:[facility] Start: 11-17-2024 ambulatory Cole NASH Facility :[facility] Start: 11-13-2024 Non-patient / Non-visit Taras thao DO -[facility] Work Phone: Start: 10-06-2024 End: 10-06-[address] [facility] Work Phone: Start: 10-06-2024 End: 10-06-2024 Encounter for general adult medical examination without abnormal findings [facility] Start: 10-06-2024 End: 10-06-2024 Patient encounter procedure [facility] Work Phone: Start: 09-02-2024 End: 09-03-2024 Refill Tremayne Gibson DO Work Phone: Neurological [facility] Comment on above: Refill Request Start: 08-15-2024 End: 08-15-2024 ambulatory No Pcp NETWORK TECHNICAL ANALYST [facility] Start: 08-15-2024 End: 08-15-2024 Patient encounter procedure No Pcp NETWORK TECHNICAL ANALYST Appointment Center Start: 08-04-2024 End: 08-04-2024 Refill Tremayne Gibson DO Work Phone: [facility] Comment on above: Refill Request Start: 05-29-2024 End: 05-29-2024 ambulatory TREMAYNE GIBSON Facility:[facility] Start: 05-29-2024 End: 05-29-2024 Office outpatient visit 10 minutes Tremayne Gibson DO Work Phone: Neurology Comment on above: PD (Parkinson's dise ase) ([facility]) (Primary Dx); Sialorrhea; RBD (REM behavioral disorder) Start: 05-03-2024 End: 05-03-2024 Orders Only Mari Narayan DO Work Phone: Neurology Comment on above: PD (Parkinson's dise ase) (HCC) Start: 04-16-2024 End: 04-16-2024 ambulatory [facility] Start: 01-30-2024 Refill Tremayne florentino DO Work Phone: Neurological [facility] Comment on above: Refill Request Start: 11-15-2023 End: 11-15-2023 Office outpatient visit 15 minutes Tremayne Gibson DO Work Phone: Neurology Comment on above: PD (Parkinson's dise ase) ([facility]) (Primary Dx); Sialorrhea; RBD (REM behavioral disorder) Start: 08-16-2023 End: 08-16-2023 ambulatory Taras Ball Other [facility] Other Start: 08-16-2023 Office outpatient vi sit 15 minutes Taras Ball [facility] Start: 08-10-2023 End: 08-10-2023 ambulatory Taars Ball Other [facility] Other Start: 08-10-2023 Office outpatient vi sit 15 minutes Taras Ball [facility] Start: 05-10-2023 End: 05-10-2023 Office outpatient visit 15 minutes Tremayne Gibson DO Work Phone: Neurology Comment on above: PD (Parkinson's dise ase) Start: 04-06-2023 Telephone encounter Tremayne fox DO Work Phone: Neurology Comment on above: Forms Start: 03-13-2023 End: 03-13-2023 ambulatory Taras Ball Other [facility] Other Start: 03-13-2023 Office outpatient vi sit 25 minutes Taras Ball [facility] Start: 11-22-2022 ambulatory Tremayne florentino DO Work Phone: Neurology Comment on above: neuropathy analysis Start: 10-09-2022 End: 10-09-2022 ambulatory Taras Woodruff Other [employer] Other Start: 10-09-2022 Telephone encounter Taras Woodruff [facility] Start: 10-08-2022 Encounter for genera l adult medical examination without abnormal findings DR TARAS WOODRUFF [facility] Start: 10-03-2022 End: 10-04-[address] TARAS WOODRUFF Facility:[facility] Start: 10-03-2022 End: 10-04-2022 Encounter for general adult medical examination without abnormal findings DR TARAS WOODRUFF Facility:[facility] Start: 10-03-2022 Periodic preventive med est patient 40-64yrs Taras Woodruff [facility] Start: 09-19-2022 End: 09-19-2022 ambulatory Tabby Lindo Other [facility] Other Start: 09-19-2022 Office outpatient ne w 30 minutes Tabby Lindo [facility] Start: 09-08-2022 End: 09-08-2022 Office outpatient visit 15 minutes Tremayne Gibson DO Work Phone: Neurology Comment on above: PD (Parkinson's dise ase) (HCC) (Primary Dx); Neuropathy, peripheral, hereditary Start: 12-29-2021 End: 12-29-2021 Patient encounter procedure Tremayne Gibson DO Work Phone: Neurology Comment on above: PD (Parkinson's dise ase) (HCC) (Primary Dx) Start: 12-01-2021 End: 12-01-2021 ambulatory Janice Leon CCC-BUGGY OPERATOR [facility] Comment on above: Hypokinetic Parkinso nian dysphonia (HCC) (Primary Dx); 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); Pharyngeal dysphagia; PD (Parkinson's disease) (HCC) Start: 11-01-2021 End: 11-02-[address] DOCTOR REED Facility: Start: 01-11-2021 Adult health examination William Woodruff Other [place] [employer] Other Procedures Date Procedure Procedure Detail Performing Clinician Start: 03-13-2025 Quick Strep (POC) William Woodruff DO Work Phone: Start: 12-23-2024 Ultrasonography guid ed transrectal cryoablation of prostate Cole NASH Comment on above: TRUS/bx Start: 10-03-2022 End: 10-03-[address] TARAS WOODRUFF Comment on above: Performed By: #### P [facility] #### [facility] [address] [place] [address] Dr. Rosalio Burks Start: 12-26-2021 Adult depression [...] RSV Vaccine (1 - 1-dose 75+ series) [facility] Start: 10-03-2027 PROSTATE CANCER SCREENING DISCUSSION PROSTATE CANCER SCREENING DISCUSSION [facility] Start: 10-03-2027 Prostate specific antigen measurement Prostate Cancer Screening Discussion [facility] Start: 01-20-2027 Screening for malign ant neoplasm of colon [facility] Start: 01-13-2026 PROSTATE CANCER SCREENING DISCUSSION PROSTATE CANCER SCREENING DISCUSSION [facility] Start: 07-16-2025 End: 07-16-2025 Patient encounter procedure 07/16/2025 4:30 PM EST Office Visit Neurology [id number] [place] [address] Tremayne Gibson, DO [address] [place] [address] Return in about 6 months (around 07/10/2025). Neurology Comment on above: Return in about 6 mo nths (around 07/10/2025). Start: 05-26-2025 End: 05-26-2025 Patient encounter procedure 05/26/2025 3:30 PM EDT Office Visit Radiation Oncology [address] [place] [address] Adama Martínez MD [address] [place] [address] Follow up Radiation Oncology Comment on above: Follow up Start: 05-14-2025 End: 05-14-2025 Patient encounter procedure 05/14/2025 8:00 AM EDT Appointment Radiology [facility] [address] [place] [address] Comment on above: Post Seed CT Start: 05-07-2025 End: 05-07-2025 Patient encounter procedure 05/07/2025 2:30 PM EDT Office Visit Radiation Oncology [address] [place] [address] Adama Martínez MD [address] [facility] [place] [address] Follow up Radiation Oncology Comment on above: Follow up Start: 04-16-2025 End: 04-16-2025 Patient encounter procedure 04/16/2025 8:00 AM EDT Office Visit Radiation Oncology [address] [facility] [place] [address] Adama Martínez MD [address] [place] [address] Seed Implant at [facility] Radiation Oncology Comment on above: Seed Implant at [facility] Start: 04-15-2025 End: 04-15-2025 Patient encounter procedure 04/15/2025 10:45 AM EDT Office Visit Radiation Oncology [address] [facility] [place] [address] Adama Martínez MD [address] [place] [address] Follow up / Seed implant Radiation Oncology Comment on above: Follow up / Seed imp lant Start: 04-06-2025 [facility] Start: 04-01-2025 End: 04-01-2025 Patient encounter procedure Radiology Pet CT Comment on above: 2 week follow up pos t seed implant Volume Study Start: 03-18-2025 End: 03-18-2025 Patient encounter procedure 03/18/2025 11:15 AM EDT Office Visit Radiation Oncology [address] [place] [address] Adama Martínez MD [address] [facility] [place] [address] Follow up/ Seed implant Radiation Oncology Comment on above: Follow up/ Seed impl ant Start: 03-05-2025 End: 03-05-2025 Patient encounter procedure 03/05/2025 8:00 AM EDT Office Visit Radiation Oncology [address] [place] [address] Adama Martínez MD [address] [place] [address] Seed Implant at [facility] Radiation Oncology Comment on above: Seed Implant at [facility] Start: 02-11-2025 End: 02-11-2025 Patient encounter procedure 02/11/2025 9:00 AM EDT Office Visit Radiation Oncology [address] [place] [address] Adama Martínez MD [address] [place] [address] Volume Study Radiation Oncology Comment on above: Volume Study Start: 01-08-2025 End: 01-08-2025 Patient encounter procedure 01/08/2025 3:30 PM EDT Office Visit Neurology [id number] [place] [address] Tremayne Gibson DO [address] [place] [address] PD FOLLOW UP Neurology Comment on above: PD FOLLOW UP Start: 08-06-2024 Advance Directive Discussion Advance Directive Discussion [facility] Start: 05-29-2024 End: 05-29-2024 Patient encounter procedure 05/29/2024 1:00 PM EDT Office Visit Neurology [address] [place] [address] Tremayne Gibson DO [address] [place] [address] Return in about 6 months (around 05/16/2024). Neurology Comment on above: Return in about 6 mo nths (around 05/16/2024). Start: 2024 Advance Directive Discussion Advance Directive Discussion [facility] [facility] Start: 2024 Pneumococcal Vaccine : 65+ (1 of 1 - PCV) Pneumococcal Vaccine: 65+ (1 of 1 - PCV) [facility] Start: 04-06-2024 Covid-19 Vaccine ( season) Covid-19 Vaccine ( season) [facility] Start: 04-06-2024 Influenza vaccination [facility] Start: 03-24-2024 Screening for malign ant neoplasm of colon [facility] Start: 04-06-2023 Covid-19 Vaccine ( season) Covid-19 Vaccine ( season) [facility] Start: 04-06-2023 Influenza vaccination [facility] Start: 12-26-2022 Adult depression screening assessment DEPRESSION SCREENING [facility] Start: 08-06-2022 DEPRESSION ASSESSMENT DEPRESSION ASS ESSMENT [facility] Start: 04-06-2022 Influenza vaccination [facility] Start: 08-06-2021 DEPRESSION ASSESSMENT DEPRESSION ASS ESSMENT [facility] Start: 04-06-2021 Influenza vaccination INFLUENZA (#1) [facility] Start: 2019 RSV Vaccine (1 - 1-d ose 60+ series) RSV Vaccine (1 - 1-dose 60+ series) [facility] Start: 2014 PROSTATE CANCER SCREENING DISCUSSION PROSTATE CANCER SCREENING DISCUSSION [facility] Start: 2009 Pneumococcal Vaccine : 50+ (1 of 1 - PCV) Pneumococcal Vaccine: 50+ (1 of 1 - PCV) [facility] Start: 2009 SHINGRIX VACCINE (1 of 2) SHINGRIX VACCINE (1 of 2) [facility] Start: 2004 COLOGUARD (FIT-DNA) COLOGUARD (FIT-D NA) [facility] Start: 2004 Colonoscopy COLONOSCOPY [facility] Start: 2004 COLORECTAL CANCER SCREENING COLORECTAL CANCER SCREENING [facility] Start: [address] COLONOGRAPHY [facility] Start: 2004 DIABETES SCREEN DIABETES SCREEN [facility] Start: 2004 Diabetes Screening Diabetes Screenin g [facility] Start: 2004 FECAL OCCULT BLOOD FECAL OCCULT BLOO D [facility] Start: 2004 Screening for malign ant neoplasm of colon [facility] Start: 2004 SIGMOIDOSCOPY SIGMOIDOSCOPY [facility] Start: 1994 Lipid 1996 panel - S andriy or Plasma Lipid Screening [facility] Start: 1994 Lipid panel Lipid Screening [facility] Start: 1994 LIPID SCREEN LIPID SCREEN [facility] Start: 1978 Urine microalbumin profile [facility] Start: 1977 Anxiety Screening Anxiety Screening [facility] Start: 1977 Depression Screening Depression Scre ening [facility] Start: 1977 HEPATITIS C SCREENING HEPATITIS C [facility] Start: 1977 Hepatitis C screening Hepatitis C Sc [facility] Start: 1977 HIV SCREENING HIV SCREENING [facility] Start: 1977 HIV screening HIV Screening [facility] Start: 1971 Adult depression screening assessment DEPRESSION SCREENING [facility] Start: 1964 COVID-19 VACCINE (#1) COVID-19 VACCI NE (#1) [facility] Start: 1964 COVID-19 VACCINE (1) COVID-19 VACCIN E (1) [facility] Start: 1959 COVID-19 VACCINE (#1) COVID-19 VACCI NE (#1) [facility] Comprehensive metabo lic 2000 panel - Serum or Plasma [facility] Immunizations Immunization Date Immunization Notes Care Provider Deniz rogers NEGATED: Highlighted row has not occurred!11-26-2020 SARS-CoV-2 (COVID-19) mRNA-1273 vaccine Cole [facility]ITY [facility] [place] Payers Date Payer Category Payer Medicare [id number] 2024 Self-pay 2023 Unknown [id number] 2022 Private Health Insurance [id number] 2018 Unknown ALAINA JETT PPO [id number] 2018-Present [phone] [facility] [id number] [place] [address] PPO [id number] 2018 Unknown [id number] 1959 Unknown [id number] 1959 Unknown [id number] 1959 Unknown [id number] 93 1959 Unknown [id number] 93 1959 Unknown [id number] [id number] 27 1959 Unknown [id number] [id number] 27 1959 Unknown [id number] [id number] 27 1959 Unknown [id number] [id number] 27 1959 Unknown [id number] [id number] 27 1959 Unknown [id number] [id number] 27 1959 Unknown [id number] [id number] 27 Unknown [id number] [id number] 31 Unknown [id number] 31 Social History Date Type Detail Facility Tobacco smoking stat us NHIS Tobacco smoking consumption unknown [facility] Start: 1960 Sex Assigned At Not on file [facility] Start: 09-06-2021 End: 04-04-2022 Exposure to SARS-CoV-2 (event) Not sure [facility] Start: 09-08-2022 End: 03-13-2025 Tobacco smoking status NHIS Never smoked tobacco [facility] Start: 09-08-2022 Tobacco use and exposure Smoke less tobacco non-user [facility] Start: 09-08-2022 End: 01-15-2023 Sex Assigned At [facility] Start: 09-08-2022 End: 01-15-2023 History of Social function [facility] Start: 06-27-2021 Adult Depression Screening Assessment 0 [facility] Start: 10-01-2021 Sexual orientation Choose not to dis close [facility] Start: 04-14-2012 End: 10-06-2024 Sex Male (finding) [facility] Start: 1960 Sex Assigned At Male [facility] Sexual Orientation [facility] Start: 01-09-2025 Alcoholic beverage intake Ex-drinker (finding) [facility] Clinical Notes 08-06-2008 to 04-07-2025 Adama Martínez MD - 04/07/2025 12:00 AM Adama Broussard MD - 04/01/2025 8:51 AM Adama Broussard MD - 04/01/2025 12:00 AM EDT Note Date & Type Note Facility 04-07-2025 History of Presen t illness Narrative [facility] [id number] 04/07/2025 [facility] Department of Radiation Oncology [facility] RADIATION ONCOLOGY BRACHYTHERAPY TREATMENT PLANNING NOTE For [...] JOSIAH 2:34 PM documented in this encounter [facility] 04-07-2025 Note HNO ID: [id number] Author: Adama MARTÍNEZ MD Service: ? Author Type: Physician Type: Progress Notes Filed: 2025 12:34 Note Text: [facility] [id number] 04/07/2025 [facility] Department of Radiation Oncology [facility] RADIATION ONCOLOGY BRACHYTHERAPY TREATMENT PLANNING NOTE For [...] Viktor Martínez M.D. / JOSIAH 512:[address] [facility] 04-01-2025 Note HNO ID: [id number] Author: Adama MARTÍNEZ MD Service: ? Author [...] been communicated to the patient or surrogate. [facility] 04-01-2025 History of Presen t illness [...] patient or surrogate. documented in this encounter [facility] 04-01-2025 History of Presen t illness Narrative [facility] [id number] 04/01/2025 [facility] Department of Radiation Oncology [facility] RADIATION ONCOLOGY SIMULATION NOTE DATE OF SIMULATION: 04/01/2025 MACHINE: Reppler Focus 500 Diagnosis: 185 (Prostate Gland) AREA:Prostate PATIENT POSITION: Supine CONTRAST: None PROTOCOL: None CONCURRENT THERAPY: None FIXATION DEVICE: UTS Stabilization device by [employer]. PROCEDURE: Patient was simulated in exaggerated dorsal lithotomy position. Serial images of the prostate were acquired using TRUS and reconstructed in 3D space. These images were imported into [employer] Prostate planning system where a plan was generated. ASSESSMENT/PLAN: Patient tolerated simulation procedure well. Electronically Signed Viktor Martínez M.D. / QUEENIE 2:45 PM documented in this encounter [facility] 04-01-2025 Note HNO ID: [id number] Author: Adama MARTÍNEZ MD Service: ? Author Type: Physician Type: Progress Notes Filed: 04/02/2025 12:45 Note Text: [facility] [id number] 04/01/2025 [facility] Department of Radiation Oncology [facility] RADIATION ONCOLOGY SIMULATION NOTE DATE OF SIMULATION: 04/01/2025 MACHINE: Reppler Focus 500 Diagnosis: 185 (Prostate Gland) AREA:Prostate PATIENT POSITION: Supine CONTRAST: None PROTOCOL: None CONCURRENT THERAPY: None FIXATION DEVICE: UTS Stabilization device by [employer]. PROCEDURE: Patient was simulated in exaggerated dorsal lithotomy position. Serial images of the prostate were acquired using TRUS and reconstructed in 3D space. These images were imported into [employer] Prostate planning system where a plan was generated. ASSESSMENT/PLAN: Patient tolerated simulation procedure well. Electronically Signed Viktor Martínez M.D. / QUEENIE 512:[address] [facility] 03-31-2025 Telephone encounter Note I called and spoke with Cole and reviewed his bowel prep instructions today for tomorrow's volume study. He denies questions at this time. He is aware to arrive at 8:45 tomorrow a.m. Deepika Merino RN [facility] 03-31-2025 Miscellaneous Notes I called and spoke with Cole and reviewed his bowel prep instructions today for tomorrow's volume study. He denies questions at this time. He is aware to arrive at 8:45 tomorrow a.m. Deepika Merino RN documented in this encounter [facility] 03-18-2025 Note Patient is here toda [...] exertion. Respiratory: Positive for shortness of breath. [facility] 03-18-2025 Note Cardiovascular Medic [facility] SUBJECTIVE Chief Complaint Patient presents with Pre-op [...] #Paroxysmal atrial fibrillation -Infrequent short asymptomatic episodes. -[id number] - 1 -Continue ASA 325mg daily and [...] cleared by thomas (more content not included)... [facility] 03-13-2025 Evaluation note Diagnosis Onset Date Resolution Viral URI with cough acute Augu st 2024 10:48am Odynophagia noneactive March 19, 2025 10:30am Acute bronchitis due to other specified organisms noneactive March 19 10:30am [facility] Work Phone: 1(804) 803-939006-12-2025 Telephone encounter Note* Telephone Encounter - Jennifer Sal RN - 01/15/2025 3:33 PM EDT Call placed and LM for pt to confirm dates/times of VS and seed Implant. Requested pt CB to review and appts were mailed to pt. Jennifer Sal RN [facility]06-12-2025 Miscellaneous Notes* Telephone Encounter - Jennifer [...] you Jennifer Sal RN documented in this encounterF[facility]06-[facility] Telephone encounter Note * Telephone Encounter - Jennifer Sal RN - 01/15/2025 1:42 PM EDT Scheduling process started and LM for Simi at Dr Nash office to begin coordinating. We will contact pt once this has been scheduled. Jennifer Sal RN [facility]06-11-2025 Telephone encounter Note* Telephone Encounter - Jennifer Sal RN - 01/14/2025 11:46 AM EDT Patient called to let us know he has decided to proceed with brachytherapy for treatment. He spoke to Dr Nash office and they instructed him to call us to start the scheduling process. Dr Martínez- please advise. Are we ok to schedule this? Thank you Jennifer Sal RN [facility]06-09-2025 Telephone encounter Note* Telephone Encounter - Jennifer Sal RN - 01/12/2025 1:19 PM EDT Call received from NASH at [facility] Cardiology. PT is NOT pacemaker dependent. Jennifer Sal RN [facility]06-09-2025 Miscellaneous Notes* Telephone Encounter - Jennifer Sal RN - 01/12/2025 1:19 PM EDT Call received from NASH at [facility] Cardiology. PT is NOT pacemaker dependent. Jennifer Sal RN * Telephone Encounter - Deepika Merino RN - 01/09/2025 1:43 PM EDT I called and spoke to Meg at [phone], Dr. Santos's office, asking if Cole is pacemaker dependent. She is unsure but will call back asapwith an update. Deepika Merino RN documented in this encounterF[facility]06-[facility] Telephone encounter Note * Telephone Encounter - Deepika Merino RN - 01/09/2025 1:43 PM EDT I called and spoke to Meg at [phone], Dr. Santos's office, asking if Cole is pacemaker dependent. She is unsure but will call back asapwith an update. Deepika Merino RN [facility]06-06-2025 NoteHNO ID: [id number] Author: DEEPIKA MERINO RN Service: ? Author Type: Registered Nurse Type: Progress Notes Filed: 01/15/2025 12:19 Note Text: Pacemaker/Defibrillator?Yes -card copied Previous Cancer(s)? Basal cell -left neck-MOHS Previous Radiation? N Lupus/Scleroderma? N On body monitoring device? N AUA= [address] [facility] NoteHNO ID: [id number] Author: Adama MARTÍNEZ MD Service: ? Author Type: Physician Type: Progress Notes Filed: 01/15/2025 12:19 Note Text: Radiation Oncology - Prostate Cancer New Patient/Consult Note PATIENT NAME: Cole Ramos PATIENT REQUESTING PROVIDER: Dr. Nash DIAGNOSIS: 64 year old male with prostate adenocarcinoma, initial PSA 4.2, biopsy Borger score 3 + 3 = 6 (grade [...] Neurocardiogenic syncope Neurocardiogenic syncope PD (Parkinson's disease) ([facility]) 12/2021 PAST SURGICAL HISTORY Procedure [...] ASSESSMENT/PLAN: Prostate adenocarcinoma, initial PSA 4.2, biopsy Borger score 3 + 3 = 6 (grade [...] about radiation approaches includin (more content not included)...[facility]06-06-2025 History of Present illness Narrative* Deepika [...] biopsies taken this area. Pathology revealed adenocarcinoma, Borger 6 (3+3) from L4 L3 L2 and [...] Neurocardiogenic syncope Neurocardiogenic syncope PD (Parkinson's disease) ([facility]) 12/2021 PAST SURGICAL HISTORY Procedure [...] by: Adama Martínez MD cc: Taras Woodruff ([facility]) [address] [place] [address] Cole Contreras Charity [address] [place] [address] documented in this encounterFayette [facility]06-[facility]-2025 Instructions* Patient Instructions* Tremayne Gibson, - 01/08/2025 4:10 PM EDT Medications 7A 10A 1P 4P Sinemet 25/100 1 1 1 1 a. Take Sinemet 30 minutes before meals or 60 minutes after meals. Avoid taking this medication with high protein meals. b. If nausea develops, try taking Sinemet with crackers or bread. c. If nausea still persists, please call [[phone]]. Avoid taking anti- nausea medications before speaking with us. Avoid Reglan, Compazine or Phenergan. documented in this encounterFayette County [facility] Hospital06-05-2025 NoteHNO ID: [id number] Author: TREMAYNE GIBSON DO Service: ? Author Type: Physician Type: Progress Notes Filed: 01/11/2025 15:46 Note Text: [facility] - FOLLOW UP EVALUATION Recording using [employer] software for draft documentation of the visit was discussed with the patient/authorized sales representative leather goods; all questions welcomed and answered. Patient/authorized sales representative leather goods agreed to proceed Taras Woodruff DO [address] [facility] [address] Dear Taras Woodruff DO: I had the [...] He recalls a previous swallow study at [facility] and participated in speech therapy for 3-4 [...] (BP Site: Left Ar (more content not included)...[facility]06-05-2025 History of Present illness Narrative* Tremayne Gibson DO - 01/08/2025 3:48 PM EDT [facility] - FOLLOW UP EVALUATION Recording using [employer] software for draft documentation of the visit was discussed with the patient/authorized sales representative leather goods; all questions welcomed and answered. Patient/authorized sales representative leather goods agreed to proceed Taras Woodruff DO [address] [facility] [address] Dear Taras Woodruff DO: I had the [...] He recalls a previous swallow study at [facility] and participated in speech therapy for 3-4 [...] or around: 07/10/25 Level of service : 82910 ( 30-39 min). Time spent 36 min on the day of service, which included preparing to see the patient, lgyo-eo-xavc patient care, completing clinical documentation, obtaining and/or reviewing separately obtained history, performing a medically appropriate examination, counseling and educating the patient/family/caregiver, ordering medications, tests, or procedures, communicating results to the patient/family/caregiver, and care coordination (not separately reported). Tremayne Gibson, Senior Staff Neurologist - [facility] documented in this encounterFayette [facility]06-02-2025 Hospital Discharge instructions Patient Education 01/05/2025 [...] under a microscope. This is called the Borger score and the total score can range from 6 10, indicating how likely it is that the cancer will spread (metastasize) to other parts of the body. The higher the score, the greater thelikelihood that the cancer will spread. Borger 6 or lower: This indicates that the cancer cells look similar to normal prostate cells (well differentiated). Borger 7: This indicates that the cancer cells [...] stress of having cancer. General instructions Take xspr-ogf-yjsafco and prescription medicines only as told by your health care provider. If you have to go to the hospital, notify your cancer specialist (oncologist). Keep all follow-up visits. This is important. Where to find more information [place] [employer]: www.cancer.org [place] [employer] of Clinical Oncology: www.cancer.net National Cancer [place]: www.cancer.gov Contact a health care provider if: [...] provider. Document Revised: 10/19/2021 Document Reviewed: 10/19/2021 Edyn Patient Education 2023 [employer]. Follow Up Care 12/11/2024 15:37:32 With:CHARITY TAFOYA, Cole Contreras, URL Address: [facility] [address], [place] [address]- [phone] When: Unknown Comments:referral to rad/onc [facility] 06-02-2025 NotePatient Education Oncology Prostate Cancer The [...] under a microscope. This is called the Borger score and the total score can range from 6?10, indicating how likely it is that the cancer will spread (metastasize) to other parts of the body. The higher the score, the greater thelikelihood that the cancer will spread. ??? Adeline 6 or lower: This indicates that the cancer cells look similar to normal prostate cells (well differentiated). ??? Borger 7: This indicates that the cancer cells look somewhat similar to normal prostate cells (moderately differentiated). ??? 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 Woodruff. [...] Urology [address] , [place] [address]- [phone] Additional Instructions: schedule prostate MRI and bx [...] No qualifying data Pro (more content not included)...[facility]: Result Comment: Electronically Signed By: Cole NASH MD\.br\Date and Time Signed: 11/24/24 09:42 EDT\.br\Electronically Co-Signed By: Keisha Moscoso.jonny\Date and Time Co-Signed: 11/24/24 09:41 [id number] NotePatient Education Oncology Transrectal Ultrasound-Guided Prostate Biopsy, [...] near your rectum, especially while sitting. ??? [place]-colored urine due to small amounts of blood in your urine. ??? A burning feeling while urinating. ??? Blood in your stool (feces) or bleeding from your rectum. ??? Blood in your semen. Follow these instructions at home: Medicines ??? Take ejek-yxo-mxkgzyo and prescription medicines only as told by [...] provider. Document Revised: 01/16/2022 Document Reviewed: 01/16/2022 Edyn Patient Education ? 2023 [employer]. Transrectal Ultrasound-Guided Prostate Biopsy A transrectal ultrasound-guided [...] including vitamins, herbs, eye drops, creams, and rnps-etu-wnuvcvi medicines. ??? Any problems you or family [...] medicines. This is especial (more content not included)...[facility]01-28-2025 Telephone encounter Note* Telephone Encounter - Darlene Cortes - 09/02/2024 11:03 AM EST Pt requesting refill as follows: Last FUV May 2024 with [facility] Requested Prescriptions Pending Prescriptions Disp Refills carbidopa-levodopa (SINEMET) 25-100 mg per tablet 120 tablet 11 Sig: Take 1 tablet by mouth four times daily. Upon approval, script will be sent electronically to the patient's pharmacy. Darlene Frias, Health Physicist III [facility]01-28-2025 Miscellaneous Notes* Telephone Encounter - Darlene Cortes - 09/02/2024 11:03 AM EST Pt requesting refill as follows: Last FUV May 2024 with [facility] Requested Prescriptions Pending Prescriptions Disp Refills carbidopa-levodopa (SINEMET) 25-100 mg per tablet 120 tablet 11 Sig: Take 1 tablet by mouth four times daily. Upon approval, script will be sent electronically to the patient's pharmacy. Darlene Frias, Health Physicist III documented in this encounterFayette County Memorial Hospital01-28-2025 NoteUT Electrophysiology Consult Note Reason for [...] He recently went to Parkinson symposium at [facility]. He is handling his meds well. Device check 04/03/23 SR with normal parameters. 42% RA pacing and 23% RV pacing. Review of Systems Musculoskeletal: Positive for arthritis, back pain and myalgias. All other systems reviewed and are negative. [facility] neurology recently made a formal [...] Tobacco Use: Low Risk (05/29/2024) Received from [facility] Patient History Smoking Tobacco Use: Never [...] Depression: Not at risk (05/23/2024) Received from [facility] PHQ-2 PHQ-2 score: 0 Housing Stability: [...] by mouth in t (more content not included)...[facility]01-10-2025 NoteHNO ID: [id number] Author: ?, ?, ? Service: ? Author [...] Dee Dee Pavon August 15, 2024 1:43 [facility] History of Present illness [...] 15, 2024 1:43 PM documented in this encounterFayette County Memorial Hospital01-10-2025 NotePatient Outreach ([facility]) COLE RAMOS ([id number]) 1960 M Date Time Provider Department 08/15/24 NO PCP [facility] During your visit today, we recorded the following information about you: Carter PavonDee Dee Sophia 08/15/2024 1:45 PM Signed [facility] NAVIGATION OUTREACH Action/FYI RP Patient Outreach - Left message with spouse for patient to call back to schedule Provider ordered Follow up in Neurology. (Please see [employer] order dated for (05/29/2024). Any agent can [...] Encounter Status:Closed by DEE DEE TORRES on 08/15/24[facility]12-30-2024 Telephone encounter Note* Telephone Encounter - Martin Piedra - 08/04/2024 11:35 AM EST LAST APPT 05/29/24 [facility] Forwarding to covering physician Requested Prescriptions Pending Prescriptions Disp Refills carbidopa-levodopa (SINEMET) 25-100 mg per tablet 120 tablet 0 Sig: Take 1 tablet by mouth four times daily. [facility]12-30-2024 Miscellaneous Notes* Telephone Encounter - Martin Piedra - 08/04/2024 11:35 AM EST LAST APPT 05/29/24 [facility] Forwarding to covering physician Requested Prescriptions Pending Prescriptions Disp Refills carbidopa-levodopa (SINEMET) 25-100 mg per tablet 120 tablet 0 Sig: Take 1 tablet by mouth four times daily. documented in this encounterFayette County Memorial Hospital10-24-2024 NoteHNO ID: [id number] Author: TREMAYNE GIBSON DO Service: ? Author Type: Physician Type: Progress Notes Filed: 05/29/2024 13:39 Note Text: [facility] - FOLLOW UP EVALUATION Taras Woodruff DO [address] [facility] [address] Dear Taras Woodruff DO: I had the [...] are normal. Fund of (more content not included)...[facility] [facility] History of Present illness Narrative* Tremayne Gibson DO - 05/29/2024 1:23 PM EDT [facility] - FOLLOW UP EVALUATION Taras Woodruff DO [address] [facility] [address] Dear Taras Woodruff DO: I had the [...] Left pathological reflexes: Rashel's absent. Coordination Right: Ltloeo-nq-puxk normal. Rapid alternating movement normal.Left: Teqgaf-ka-swty normal. Rapid alternating movement normal. Gait Casual [...] 1 1 1 Level of service : 47266 (10-19 min). Time spent 15 min on the day of service, which included preparing to see the patient, tiei-sx-meyq patient care, completing clinical documentation, obtaining and/or [...] Sincerely, Tremayne Gibson DO documented in this encounterFayette County Memorial Hospital09-28-2024 NoteHNO ID: [id number] Author: MARI ROSAS DO Service: ? Author Type: Physician Type: Progress Notes Filed: 05/03/2024 12:43 Note Text:[facility] [id number] History of Present illness Narrative* Mari Rosas DO - 05/03/2024 12:43 PM EDT documented in this encounterFayette County Memorial Hospital09-28-2024 Telephone encounter Note * Telephone Encounter - Mari Rosas DO - 05/03/2024 12:41 PM EDT Patient called stating he was out of town and needed 10 pills of Sinemet to [facility] in [place]. Refillordered [facility]09-28-2024 Miscellaneous Notes* Telephone Encounter - Mari Rosas DO - 05/03/2024 12:41 PM EDT Patient called stating he was out of town and needed 10 pills of Sinemet to [facility] in [place]. Refillordered documented in this encounterFayette County Memorial Hospital09-11-2024 Note-Patient has no concerning symptoms. -[id number]-OIOJ score: 1 (age).[facility]09-11-2024 Note Device check on 03/19/24 -Found to have normal functioning. -Pacemaker life: 3 year 10 month remaining. -Atrial paced 45%, RV paced 15%.[facility]09-11-2024 NoteOrdered Echo (TTE) in 6 months for re-evaluation of ascending thoracic aneurysm. Continue to monitor for increased dilation. -Last echo in 2019 showed ascending thoracic aorta measuring 4.2. CTA in 2023 showed no increase in size.[facility]09-11-2024 Note Lipid studies from 09/28/23 show elevated LDL at 128.4. -Started Lipitor 40 mg at today's visit for better lipid control. -Will re-draw lipids and CMP in 3 months.[facility] 04-16-2024 NotePt is here for a six month follow up. Pt denies chest pain, sob, palpatations Review of Systems Neurological: Positive for light-headedness and tremors. All other systems reviewed and are negative.[facility] 04-16-2024 NoteUTP CARDIOLOGY PROGRESS NOTE [facility] HPI: Cole Ramos is a 64 y.o. [...] check after statin initiation. Sathish Sandra PA-C [facility] Cardiology Available 7-5pm via Tradesh[employer] Pager #: [phone] Hospital06-26-2024 Telephone encounter Note* Telephone Encounter - Martin Piedra - 01/30/2024 10:46 AM EDT Last appt 11/15/23 [facility] Patient phones requesting refills as follows: Requested Prescriptions Pending Prescriptions Disp Refills carbidopa-levodopa (SINEMET) 25-100 mg per tablet 360 tablet 1 Sig: Take 1 tablet by mouth four times daily. [facility]06-26-2024 Miscellaneous Notes* Telephone Encounter - Martin Piedra - 01/30/2024 10:46 AM EDT Last appt 11/15/23 [facility] Patient phones requesting refills as follows: Requested Prescriptions Pending Prescriptions Disp Refills carbidopa-levodopa (SINEMET) 25-100 mg per tablet 360 tablet 1 Sig: Take 1 tablet by mouth four times daily. documented in this encounterFayette County Memorial Hospital04-11-2024 Instructions* Patient Instructions* Tremayne Gibson DO [...] Reglan, Compazine or Phenergan. documented in this encounterFayette County Memorial Hospital04-11-2024 History of Present illness Narrative* Tremayne [...] BP Cuff Size: Regular Adult) Pulse 106 [id number]% General Medical Examination: General Description of Patient: [...] Left pathological reflexes: Rashel's absent. Coordination Right: Lnswau-dv-spjd normal. Rapid alternating movement normal.Left: Laakxz-yv-qgpk normal. Rapid alternating movement normal. Gait Casual [...] addressed during this visit: Pd (parkinson's disease) ([facility]) (primary encounter diagnosis) Sialorrhea Rbd [...] counseling regarding preparing to see the patient, yiwy-hd-bvvd patient care, completing clinical documentation, obtaining and/or reviewing separately obtained history, performing a medically appropriate examination, counseling and educating the patient/family/caregiver, ordering medications, tests,or procedures, and communicating results to the patient/family/caregiver. I tried to answer all of the patient's questions and concerns during this visit. Tremayne Gibson DO Senior Staff Neurologist - [facility] documented in this encounterFayette County Memorial Hospital01-11-2024 Evaluation note* Encounter Date Diagnosis Assessment [...] G20) Weakens his ability to clear secretions [facility] Other 01-05-2024 Evaluation note* Encounter Date Diagnosis [...] elevation of HOB. Tessalon Perles since nonproductive [facility] Other 10-05-2023 History of Present illness Narrative* Tremayne Gibson, - 05/10/2023 11:20 AM EDT [facility] - FOLLOW UP EVALUATION Tremayne Gibson [address] [facility] [address] Cole Ramos is a 63 year old [...] Left pathological reflexes: Rashel's absent. Coordination Right: Kpxwii-ok-zhmb normal. Rapid alternating movement normal.Left: Kisban-cf-lhgf normal. Rapid alternating movement normal. Gait Casual [...] counseling regarding preparing to see the patient, uhqo-cp-xnpc patient care, completing clinical documentation, obtaining and/or reviewing separately obtained history, performing a medically appropriate examination, counseling and educating the patient/family/caregiver, ordering medications, tests,or procedures, and communicating results to the patient/family/caregiver. I tried to answer all of the patient's questions and concerns during this visit. Tremayne Gibson DO Senior Staff Neurologist - [facility] * Abhishek Cotto LPN - 05/10/2023 [...] (Sleep study not recommended) documented in this encounterFayette County Memorial Hospital09-01-2023 Miscellaneous Notes* Telephone Encounter - Drew Mora RN - 04/06/2023 2:59 PM EDT Form printed and in nursing outbox for MD signature. Drew Mora RN * Telephone Encounter - Flora Quevedo - 04/06/2023 2:05 PM EDT Received form by fax from [facility] in [place]. They are asking if the patient can participate [employer] fitness class. Scanned form to patient's chart for provider signature. documented in this encounterFayette County Memorial Hospital08-08-2023 Evaluation note* Encounter Date Diagnosis Assessment [...] calories. Protien supplement recommended. Monitor for now. [facility] Other 03-06-2023 Evaluation note* Encounter Date Diagnosis Assessment Notes Treatment Notes Treatment Clinical Notes Oct, Parkinson's disease (ICD-10 - G20) [facility] Other 02-28-2023 Evaluation note* Encounter Date Diagnosis [...] f/u Neurology, scheduled to be seen at [facility] neuropathy clinic. Fall precautions., inspect feet daily for cuts and calluses. Sep, Paroxysmal atrial fibrillation (ICD-10 - I48.0) CHADS VASC=0 Denies episodes of tachycardia. f/u Cardiology Sep, Cardiac pacemaker (I CD-10 - Z95.0) PM checks q 6mo [facility] Other 02-14-2023 Evaluation note* Encounter Date Diagnosis [...] treatment plan. Patient left in stable condition. [facility] Other [id number] Instructions* Patient Instructions* Tremayne Gibson DO - 09/08/2022 8:40 AM EST Medications 6A 10A 245P Sinemet 25/100 1 1 1 documented in this encounterFayette County Memorial Hospital02-03-2023 History of Present illness Narrative* Tremayne Gibson DO - 09/08/2022 8:18 AM EST [facility] - FOLLOW UP EVALUATION Tremayne Gibson [address] [facility] [address] Cole Raoms is a 62 year old male with [...] holds a paper. No falls are noted. 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 There is a strong family [...] Neurology OT/PT/Speech Visit from 10/13/[address] [facility] T [...] Left pathological reflexes: Rashel's absent. Coordination Right: Iedoix-gk-zwzp normal. Rapid alternating movement normal.Left: Vjfqlh-wx-suhj normal. Rapid alternating movement normal. Gait Casual [...] the amplitude decrements starting after the 1st pxco-uok-bheex sequence. Arm Movements Right 2-Mild. a) 3 [...] addressed during this visit: Pd (parkinson's disease) ([facility]) (primary encounter diagnosis) Neuropathy, peripheral, hereditary Plan: Continue Sinemet Encouraged exercise - ~150 minutes of strenuous exercise weekly is recommended Defer until 12/26; PT at [place] Defer until 12/26; genetic counseling for testing for peripheral neuropathy Return in about 6 months (around 03/08/2023). Medical decision making was high complexity due to patient's, multiple symptoms, advancing disease,newly diagnosed Neurologic disease and counseling about mcfp implications The total time spent on the patient care was 25 minutes with greater than 50% of the time spent on counseling regarding preparing to see the patient, gvyn-hu-wzzi patient care, completing clinical documentation, obtaining and/or reviewing separately obtained history, performing a medically appropriate examination, counseling and educating the patient/family/caregiver, ordering medications, tests,or procedures, and communicating results to the patient/family/caregiver. I tried to answer all of the patient's questions and concerns during this visit. Tremayne Gibson DO Senior Staff Neurologist - [facility] documented in this encounterFayette County Memorial Hospital05-26-2022 Instructions* Patient Instructions* Tremayne Gibson DO [...] Reglan, Compazine or Phenergan. documented in this encounterFayette County Memorial Hospital05-26-2022 History of Present illness Narrative* Tremayne Gibson DO - 12/29/2021 2:10 PM EDT [facility] - FOLLOW UP EVALUATION Tremayne Gibson [address] [facility] [address] Cole Ramos is a 61 year old male with a history of IPD (idiopathic Parkinson's disease). He is seen with his . Interval History Since Last Visit: The patient has been following through with the BUGGY OPERATOR exercises on his drive to work. He notes mild depression. He has been using the treadmill. The short-term memory issues are still an issue. He notes continuing cognitive issues. The PT has been helpful - he notes more hxdcg-fv-aasyqn. No falls arereported. The patient denies any [...] PROMIS-10 OT/PT/Speech Visit from 10/13/[address] [facility] Physical [facility] T [...] Left pathological reflexes: Rashel's absent. Coordination Right: Cqxonk-ac-lwic normal. Rapid alternating movement normal. Left: Tglvgu-zz-ipah normal. Rapid alternating movement normal. Gait Casual [...] the amplitude decrements starting after the 1st ykep-nrn-ofwaj sequence. Arm Movements Right 2-Mild. a) 3 [...] addressed during this visit: Pd (parkinson's disease) ([facility]) (primary encounter diagnosis) Plan: 1. [...] counseling regarding preparing to see the patient, tsob-ke-ucls patient care, completing clinical documentation, obtaining and/or reviewing separately obtained history, performing a medically appropriate examination, counseling and educating the patient/family/caregiver, ordering medications, tests,or procedures and communicating results to the patient/family/caregiver. I tried to answer all of the patient's questions and concerns during this visit. Tremayne Gibson DO Senior Staff Neurologist - [facility] documented in this encounterFayette County Memorial Hospital04-28-2022 History of Present illness Narrative* Janice Leon [facility]-BUGGY OPERATOR - 12/01/2021 8:55 AM EDT Episode Visit Count: 5 Therapist That Will Oversee The Plan Of Care: Janice Leon Start of Care Date: 10/13/21 Onset Date: 10/06/21 Plan of Care Certification Date: 10/13/21 Next Certification Due Date: 12/12/21 Patient Identified by Name and Date of : Yes [facility] REHABILITATION [facility] SPORTS THERAPY SPEECH [...] upright 90 degrees for all PO;Small Bite/Sip BUGGY OPERATOR Recommendations: Outpatient Speech Therapy Results and Recommendations Discussed With: Patient Planned Interventions, Frequency, and Duration: Planned Treatment Interventions: Cognitive-Linguistic Training (60102, 52543, 98801);Dysphagia Reduction Training (72187);Expressive Language Training (92422, 49786);Voice Training (24350) Current Frequency: 1x/week Duration: 4 weeks PLAN [...] reps each Laryngeal elevation/adduction exercises: 10 reps BUGGY OPERATOR administered DEEP PHARYNGEAL NEUROMUSCULAR STIMULATION to CN [...] 70.2 Sentences: 67.9 TREATMENT: Swallow / Dysphagia (61708): Skilled Intervention: Demonstrated, instructed, modeled and provided educational handout(s) for hyolaryngeal elevation and excursion manuevers and lingual ROM, lingual base ROM, pharyngeal ROM., Provided both written and video instruction for home exercise program to facilitate follow through with proper performance. , Provided neuromuscular reeducation of swallowing reflex via DPNS Speech/Language Therapy (87341): Skilled Intervention: Educated and instructed patient on [...] per 5 word sentences Billing: Speech Treatment (76090) and Dysphagia Treatment (12465) Total time / Length of visit: 60 minutes Janice Leon CCC-BUGGY OPERATOR documented in this encounterFayette County Memorial Hospital04-07-2022 Miscellaneous Notes* Addendum Note - Hero Cuellar PT - 11/10/2021 9:37 AM EDT Addended by: HERO CUELLAR on: 11/10/2021 09:37 AM Modules accepted: Orders documented in this encounterFayette County Memorial Hospital04-07-2022 History of Present illness Narrative* LANEY ParkBUGGY OPERATOR - 11/10/2021 9:04 AM EDT Episode Visit Count: 4 Therapist That Will Oversee The Plan Of Care: Janice Leon Start of Care Date: 10/13/21 Onset Date: 10/06/21 Plan of Care Certification Date: 10/13/21 Next Certification Due Date: 12/12/21 Patient Identified by Name and Date of : Yes [facility] REHABILITATION AND SPORTS THERAPY SPEECH [...] upright 90 degrees for all PO;Small Bite/Sip BUGGY OPERATOR Recommendations: Outpatient Speech Therapy Results and Recommendations Discussed With: Patient Planned Interventions, Frequency, and Duration: Planned Treatment Interventions: Cognitive-Linguistic Training (03350, 89628, 01114);Expressive Language Training (90738, 03792);Voice Training (12019);Dysphagia Reduction Training (68679) Current Frequency: 1x/week Duration: 4 weeks PLAN [...] 5 reps Pharyngeal ROM exercises: 10 reps BUGGY OPERATOR administered DEEP PHARYNGEAL NEUROMUSCULAR STIMULATION to CN V-XII sites with iced lemon glycerine swabs x 18. Patient demonstrated mild-strong gag response x 15, moderate to max lingual curling,moderate to max palatal lift and swallow reflexes of 2-3 seconds. TREATMENT: Swallow / Dysphagia (90532): Skilled Intervention: Demonstrated, instructed, modeled and provided [...] of swallowing reflex via DPNS. Speech/Language Therapy (33130): Skilled Intervention: Educated and instructed patient on compensatory strategies for vocal intensity, working memory, informtion processing Educated and instructed patient on memory recall strategies such as grouping. Provided verbal cues in vocal intensity. Provided and instructed patient per home exercise program. Current Home Program: facial/lingual/lingual base/laryngeal/pharyngeal exercises, working memory per 5 word sentences, memory using grouping, abstract categorical naming Billing: Speech Treatment (64259) and Dysphagia Treatment (84326) Total time / Length of visit: 75 minutes Janice Leon CCC-BUGGY OPERATOR documented in this encounterFayette County Memorial Hospital04-07-2022 History of Present illness Narrative* Hero [...] Patient to be seen for Therapeutic exercise (13651);Neuromuscular re-education (09409);Manual therapy (51664);Therapeutic activities (23250);Self-long term management (03932);Gait Training (38759);Patient/Family/Caregiver Education;Functional training PLAN FOR NEXT VISIT: Return in 6 months to reperform outcome measures SUBJECTIVE: Patient Reason for Visit: Pt had a bout of headache and feeling off balance. Plans to discuss with reduction furnace operator helper. Pt will be working with Dr. Galan [...] Gait belt utilized during session for safety. Self-Skilled Nursing Management: 1: Reviewed PD aerobic exercise intensity [...] 60 Hero Cuellar PT documented in this encounterFayette County Memorial Hospital04-04-2022 Miscellaneous Notes* Telephone Encounter - Darlene Salazar - 11/07/2021 1:09 PM EDT MBS results received via fax and available to view in scanned documents. documented in this encounterFayette County Memorial Hospital03-31-2022 History of Present illness Narrative* Janice Leon CCC-BUGGY OPERATOR - 11/03/2021 11:11 AM EDT Episode Visit Count: 3 Therapist That Will Oversee The Plan Of Care: Janice Leon Start of Care Date: 10/13/21 Onset Date: 10/06/21 Plan of Care Certification Date: 10/13/21 Next Certification Due Date: 12/12/21 Patient Identified by Name and Date of : Yes [facility] REHABILITATION AND SPORTS THERAPY SPEECH [...] 69.4 dB SPL TREATMENT: Swallow / Dysphagia (43172): Skilled Intervention: Provided education related to a [...] follow through with proper performance. Speech/Language Therapy (90454): Skilled Intervention: Educated and instructed patient on compensatory strategies for vocal intensity Provided verbal cues in vocal intensity. Provided and instructed patient per home exercise program. 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) Unspecified persistent mental disorders due to conditions classified elsewhere Pharyngeal dysphagia Dysphagia, pharyngeal phase PD (Parkinson's disease) (HCC) Paralysis agitans documented in this encounter [facility] HospitalEvaluation note* Diagnosis Abnormality of gait- Primary PD (Parkinson's disease) (HCC) Paralysis agitans [facility]* 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) Unspecified persistent mental disorders due to conditions classified elsewhere Pharyngeal dysphagia Dysphagia, pharyngeal phase PD (Parkinson's disease) (HCC) Paralysis agitans documented in this encounter [facility] HospitalEvalubay[facility] note* 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) Unspecified persistent mental disorders due to conditions classified elsewhere Pharyngeal dysphagia Dysphagia, pharyngeal phase PD (Parkinson's disease) (HCC) Paralysis agitans [facility] encounter [place] [facility]* Diagnosis PD (Parkinson's disease) (HCC)- Primary Paralysis agitans documented in this encounter [facility]Eval[facility]* Diagnosis PD (Parkinson's disease) (HCC)- Primary Paralysis agitans Neuropathy, peripheral, hereditary Hereditary peripheral neuropathy documented in this encounter [place] [facility]* Diagnosis PD (Parkinson's disease) (HCC)- Primary Paralysis agitans [facility]* Diagnosis PD (Parkinson's disease) Paralysis agitans documented in this encounter [place] [facility]* Diagnosis PD (Parkinson's disease) (HCC)- Primary Paralysis agitans Sialorrhea Disturbance of salivary secretion 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 documented in this encounter [place] [facility]* Diagnosis PD (Parkinson's disease) (HCC) Paralysis agitans [facility] [place] [facility]* Diagnosis PD (Parkinson's disease) (HCC) Paralysis agitans documented [facility] this encounter [facility]* Diagnosis PD (Parkinson's disease) (HCC)- Primary Paralysis agitans Sialorrhea Disturbance of salivary secretion 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 documented in this encounter [place] [facility]* Diagnosis PD (Parkinson's disease) (HCC) Paralysis agitans documented in this encounter [place] [facility]* Diagnosis PD (Parkinson's disease) (HCC) Paralysis agitans documented [facility] [place] [facility]* Diagnosis Onset Date Resolution Status Admit Date Ascending aortic aneurysm acute October 06, 2024 9:20am Chronic kidney disease acute [facility] 2024 9:20am Hypercholesterolemia acute [facility] 2024 9:20am Parkinson's disease acute October 06, 2024 9:20am Paroxysmal atrial fibrillation acute October 06, 2024 9:20am Screening PSA (prostate spec ific antigen) acute October 06, 2024 9:20am Symptomatic bradycardia acute [facility] 2024 9:20am Wellness examination noneactive Carlos h 2024 9:20am [facility] Work Phone: Evaluation note* Diagnosis Parkinson's disease without dyskinesia or fluctuating manifestations (HCC)- Primary Slow transit constipation Dysphagia, unspecified type documented in this encounter [facility]* Diagnosis Malignant neoplasm of prostate (HCC)- Primary Malignant neoplasm of prostate documented in this encounter [facility] HospitalEvalubay[facility] noteNo assessment information availableOhiohealth Work Phone: Evaluation note* Diagnosis Onset Date Resolution Status Admit Date Sore throat noneactive March 13 10:48am [facility] Work Phone: Evaluation note* Diagnosis Malignant neoplasm of prostate (HCC)- Primary Malignant neoplasm of prostate [facility] Narrative No data available for this section [facility] progress note No data available for this section [facility] reason for referral (narrative)No reason for referral information availableMercy Health St[facility] Work Phone: Reason for Referral Specialty Diagnoses / Procedures Referred By Lyubov t Referred To Contact [facility] Diagnoses Abnormality of gait PD (Parkinson's disease) (HCC) Procedures PT REHAB FOLLOW UP ORDER THERAPEUTIC EXERCISES RE, EA 15 MIN. 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) Pharyngeal dysphagia PD (Parkinson's disease) ([facility]) Procedures SPEECH REHAB FOLLOW UP ORDER TX SPEECH LANG VOICE COMMJ &/AUDITORY PROC IND Tremayne Gibson DO [address] [place] [address] [facility] [address] [address] Referral ID Status Reason Start Date Expiration Date V isits Requested Visits Authorized [id number] Closed PCP Requested Referral Auto-Generated Referral 12/01/2021 03/01/2022 1 1 Specialty Diagnoses / Procedures Referred By Lyubov marks Referred To Contact Diagnoses PD (Parkinson's disease) ([facility]) Procedures PROVIDER ORDERED FOLLOW UP OFFICE/OUTPATIENT NEW HIGH MDM 60-74 MINUTES Tremayne Gibson DO [address] [place] [address] Referral ID Status Reason Start Date Expiration Date V isits Requested Visits Authorized [id number] Authorized 07/01/2022 09/29/2022 1 1 Referral ID Status Reason Start Date Expiration Date V isits Requested Visits Authorized [id number] Authorized 03/08/2023 06/06/2023 1 1 Specialty Diagnoses / Procedures Referred By Lyubov marks Referred To Contact [facility] Diagnoses PD (Parkinson's disease) ([facility]) Procedures CONSULT TO PHYSICAL THERAPY PHYSICAL THERAPY EVALUATION HIGH COMPLEX 45 MINS Tremayne Gibson DO [address] [place] [address] [facility] [address] [address] Referral ID Status Reason Start Date Expiration Date Visits Requested Visits Authorized [id number] Pending Review Auto-Generat ed Referral 12/15/2022 11/23/2023 1 1 Specialty Diagnoses / Procedures Referred By Lyubov marks Referred To Contact Diagnoses PD (Parkinson's disease) ([facility]) Sialorrhea RBD (REM behavioral disorder) Procedures PROVIDER ORDERED FOLLOW UP OFFICE/OUTPATIENT NEW HIGH MDM 60 MINUTES Tremayne Gibson DO [address] [place] [address] Referral ID Status Reason Start Date Expiration Date V isits Requested Visits Authorized [id number] Authorized 05/16/2024 08/14/2024 1 1 Specialty Diagnoses / Procedures Referred By Lyubov marks Referred To Contact Diagnoses PD (Parkinson's disease) ([facility]) Procedures PROVIDER ORDERED FOLLOW UP OFFICE/OUTPATIENT [facility] 60 MINUTES Tremayne Gibson, DO [address] [place] [address] Referral ID Status Reason Start Date Expiration Date V isits Requested Visits Authorized [id number] Authorized 11/27/2024 02/25/2025 1 1 Summary Purpose [...] or prosecute any alcohol or drug abuse patient.[facility] the event this information is protected by the Federal Confidentiality of Alcohol and Drug Abuse Patient Records regulations: The Federal rules restrict any use of the information to criminally investigate or prosecute any alcohol or drug abuse patient.[facility] HospitalIn the event this information is protected by the Federal Confidentiality of Alcohol and Drug Abuse Patient Records regulations: The Federal rules restrict any use of the information to criminally investigate or prosecute any alcohol or drug abuse patient.[facility] HospitalIn the event this information is protected by the Federal Confidentiality of Alcohol and Drug Abuse Patient Records regulations: The Federal rules restrict any use of the information to criminally investigate or prosecute any alcohol or drug abuse patient.[facility] HospitalIn the event this information is protected by the Federal Confidentiality of Alcohol and Drug Abuse Patient Records regulations: The Federal rules restrict any use of the information to criminally investigate or prosecute any alcohol or drug abuse patient.[facility] HospitalIn the event this information is protected by the Federal Confidentiality of Alcohol and Drug Abuse Patient Records regulations: The Federal rules restrict any use of the information to criminally investigate or prosecute any alcohol or drug abuse patient.[facility] HospitalIn the event this information is protected by the Federal Confidentiality of Alcohol and Drug Abuse Patient Records regulations: The Federal rules restrict any use of the information to criminally investigate or prosecute any alcohol or drug abuse patient.[facility] HospitalIn the event this information is protected by the Federal Confidentiality of Alcohol and Drug Abuse Patient Records regulations: The Federal rules restrict any use of the information to criminally investigate or prosecute any alcohol or drug abuse patient.[facility] HospitalIn the event this information is protected by the Federal Confidentiality of Alcohol and Drug Abuse Patient Records regulations: The Federal rules restrict any use of the information to criminally investigate or prosecute any alcohol or drug abuse patient.[facility] HospitalIn the event this information is protected by the Federal Confidentiality of Alcohol and Drug Abuse Patient Records regulations: The Federal rules restrict any use of the information to criminally investigate or prosecute any alcohol or drug abuse patient.[facility] HospitalIn the event this information is protected by the Federal Confidentiality of Alcohol and Drug Abuse Patient Records regulations: The Federal rules restrict any use of the information to criminally investigate or prosecute any alcohol or drug abuse patient.[facility] HospitalIn the event this information is protected by the Federal Confidentiality of Alcohol and Drug Abuse Patient Records regulations: The Federal rules restrict any use of the information to criminally investigate or prosecute any alcohol or drug abuse patient.[facility] HospitalIn the event this information is protected by the Federal Confidentiality of Alcohol and Drug Abuse Patient Records regulations: The Federal rules restrict any use of the information to criminally investigate or prosecute any alcohol or drug abuse patient.[facility] HospitalIn the event this information is protected by the Federal Confidentiality of Alcohol and Drug Abuse Patient Records regulations: The Federal rules restrict any use of the information to criminally investigate or prosecute any alcohol or drug abuse patient.[facility] HospitalIn the event this information is protected by the Federal Confidentiality of Alcohol and Drug Abuse Patient Records regulations: The Federal rules restrict any use of the information to criminally investigate or prosecute any alcohol or drug abuse patient.[facility] HospitalIn the event this information is protected by the Federal Confidentiality of Alcohol and Drug Abuse Patient Records regulations: The Federal rules restrict any use of the information to criminally investigate or prosecute any alcohol or drug abuse patient.[facility] HospitalIn the event this information is protected by the Federal Confidentiality of Alcohol and Drug Abuse Patient Records regulations: The Federal rules restrict any use of the information to criminally investigate or prosecute any alcohol or drug abuse patient.[facility] HospitalIn the event this information is protected by the Federal Confidentiality of Alcohol and Drug Abuse Patient Records regulations: The Federal rules restrict any use of the information to criminally investigate or prosecute any alcohol or drug abuse patient.[facility] HospitalIn the event this information is protected by the Federal Confidentiality of Alcohol and Drug Abuse Patient Records regulations: The Federal rules restrict any use of the information to criminally investigate or prosecute any alcohol or drug abuse patient.[facility] HospitalIn the event this information is protected by the Federal Confidentiality of Alcohol and Drug Abuse Patient Records regulations: The Federal rules restrict any use of the information to criminally investigate or prosecute any alcohol or drug abuse patient.[facility] HospitalIn the event this information is protected by the Federal Confidentiality of Alcohol and Drug Abuse Patient Records regulations: The Federal rules restrict any use of the information to criminally investigate or prosecute any alcohol or drug abuse patient.[facility] HospitalIn the event this information is protected by the Federal Confidentiality of Alcohol and Drug Abuse Patient Records regulations: The Federal rules restrict any use of the information to criminally investigate or prosecute any alcohol or drug abuse patient.[facility] HospitalIn the event this information is protected by the Federal Confidentiality of Alcohol and Drug Abuse Patient Records regulations: The Federal rules restrict any use of the information to criminally investigate or prosecute any alcohol or drug abuse patient.[facility] HospitalIn the event this information is protected by the Federal Confidentiality of Alcohol and Drug Abuse Patient Records regulations: The Federal rules restrict any use of the information to criminally investigate or prosecute any alcohol or drug abuse patient.[facility] HospitalIn the event this information is protected by the Federal Confidentiality of Alcohol and Drug Abuse Patient Records regulations: The Federal rules restrict any use of the information to criminally investigate or prosecute any alcohol or drug abuse patient.[facility] HospitalIn the event this information is protected by the Federal Confidentiality of Alcohol and Drug Abuse Patient Records regulations: The Federal rules restrict any use of the information to criminally investigate or prosecute any alcohol or drug abuse patient.[facility] HospitalIn the event this information is protected by the Federal Confidentiality of Alcohol and Drug Abuse Patient Records regulations: The Federal rules restrict any use of the information to criminally investigate or prosecute any alcohol or drug abuse patient.[facility] HospitalIn the event this information is protected by the Federal Confidentiality of Alcohol and Drug Abuse Patient Records regulations: The Federal rules restrict any use of the information to criminally investigate or prosecute any alcohol or drug abuse patient.[facility] HospitalIn the event this information is protected by the Federal Confidentiality of Alcohol and Drug Abuse Patient Records regulations: The Federal rules restrict any use of the information to criminally investigate or prosecute any alcohol or drug abuse patient.[facility] Reason for Visit (unrecogniz ed section and content) Reason Comments Speech Progress Note Specialty Diagnoses / Procedures Referred By Lyubov t Referred To Contact SPEECH THERAPY Diagnoses PD (Parkinson's disease) (HCC) Procedures CONSULT TO SPEECH THERAPY OFFICE/OUTPATIENT [facility] 60-74 MINUTES EVAL SPEECH SOUND PRODUCT LANGUAGE COMPREHENSION TX SPEECH LANG VOICE COMMJ &/AUDITORY PROC IND Tremayne Gibson, DO [address] [place] [address] [phone] Referral ID Status Reason Start Date Expiration Date Visits Requested Visits Authorized [id number] Authorized Auto-Generat ed Referral 10/07/2021 08/05/2022 30 30 Reason Comments Speech Therapy Reason Comments Physical Therapy PT Progress Note Specialty Diagnoses / Procedures Referred By Kinseyac t Referred To Contact PHYSICAL THERAPY Diagnoses PD (Parkinson's disease) ([facility]) Procedures CONSULT TO PHYSICAL THERAPY PHYSICAL THERAPY EVALUATION HIGH COMPLEX 45 MINS THERAPEUTIC EXERCISES RE, EA 15 MIN. Tremayne Gibson, DO [address] [place] [address] [address] Referral ID Status Reason Start Date Expiration Date Visits Requested Visits Authorized [id number] Authorized Auto-Generat ed Referral 10/07/2021 08/05/2022 30 30 Reason Comments Speech Progress Note Specialty Diagnoses / Procedures Referred By Lyubov t Referred To Contact SPEECH THERAPY Diagnoses PD (Parkinson's disease) ([facility]) Procedures CONSULT TO SPEECH THERAPY OFFICE/OUTPATIENT NEW HIGH MDM 60-74 MINUTES EVAL SPEECH SOUND PRODUCT LANGUAGE COMPREHENSION TX SPEECH LANG VOICE COMMJ &/AUDITORY PROC IND Tremayne Gibson, DO [address] [place] [address] [phone] Reason Comments Results MBS Reason Comments Established Patient Tremor Tremors little worse Numbness in both feet mostly left Specialty Diagnoses / Procedures Referred By Lyubov marks Referred To Contact Diagnoses PD (Parkinson's disease) ([facility]) Procedures PROVIDER ORDERED FOLLOW UP OFFICE/OUTPATIENT NEW HIGH MDM 60-74 MINUTES Tremayne Gibson, DO [address] [place] [address] Referral ID Status Reason Start Date Expiration Date Visits Re quested Visits Authorized [id number] Closed 07/01/2022 09/29/2022 1 1 Reason Comments Forms Reason Comments Follow Up Specialty Diagnoses / Procedures Referred By Lyubov marks Referred To Contact Diagnoses PD (Parkinson's disease) Procedures PROVIDER ORDERED FOLLOW UP OFFICE/OUTPATIENT NEW HIGH MDM 60-74 MINUTES Tremayne Gibson DO [address] [place] [address] Referral ID Status Reason Start Date Expiration Date Visits Re quested Visits Authorized [id number] Closed 03/08/2023 06/06/2023 1 1 Reason Comments Follow Up Follow up on Vanessa ons Reason Onset Date Comments Refill Request 01/30/2024 Reason Comments Follow Up Parkinson's Disease Per patient statemen t, 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 Patient conts with P.T. and is going well. Specialty Diagnoses / Procedures Referred By Lyubov marks Referred To Contact Diagnoses PD (Parkinson's disease) ([facility]) Sialorrhea RBD (REM behavioral disorder) Procedures PROVIDER ORDERED FOLLOW UP OFFICE/OUTPATIENT NEW HIGH MDM 60 MINUTES Tremayne Gibson, DO [address] [place] [address] Referral ID Status Reason Start Date Expiration Date Visits Re quested Visits Authorized [id number] Closed 05/16/2024 08/14/2024 1 1 Reason Onset [...] Referred To Contact Diagnoses PD (Parkinson's disease) ([facility]) Procedures PROVIDER ORDERED FOLLOW UP OFFICE/OUTPATIENT NEW HIGH MDM 60 MINUTES Tremayne Gibson, DO [address] [place] [address] Phone: tel: fax: Referral ID Status Reason Start Date Expiration Date Visits Re quested Visits Authorized [id number] Closed 11/27/2024 02/25/2025 1 1 Reason Comments [...] DATE CREATED AUTHOR AUTHOR'S ORGANIZ ATION 05/04/2024 [facility] DATE CREATED AUTHOR AUTHOR'S ORGANIZ ATION 02/22/2025 [facility] DATE CREATED AUTHOR AUTHOR'S ORGANIZ ATION 03/20/2025 [facility] DATE CREATED AUTHOR AUTHOR'S ORGANIZ ATION 03/21/2025 [facility] DATE CREATED AUTHOR AUTHOR'S ORGANIZ ATION 04/09/[address] [facility] Care Teams (unrecognized sec tion and content) Team Status: Active Member Role Status Dates aTras Woodruff DO Primary Care Provider Active Team [...] Provider Active Sta rt: November 13, 2024 Electronic Warfare Officer Relationship Specialty Start Date End Date Taras Woodruff DO [address] [facility] [place] [address] PCP - General Internal Medicine 05/29/24 Electronic Warfare Officer Relationship Specialty Start Date End Date Taras Woodruff DO [address] [place] [address] PCP - General Internal Medicine 05/29/24 Electronic Warfare Officer Relationship Specialty Start Date End Date Taras Woodruff DO [address] [place] [address] PCP - General Internal Medicine 05/29/24 Electronic Warfare Officer Relationship Specialty Start Date End Date Taras Woodruff DO [address] [place] [address] PCP - General Internal Medicine 05/29/24 Team Status: Inactive Member Role Status Dates Taras Woodruff DO Primary Care Provide r, Attending Provider Active Start: October 06, 2024 End: October 06, 2024 Electronic Warfare Officer Relationship Specialty Start Date End Date Taras Woodruff DO [address] [place] [address] PCP - General Internal Medicine 05/29/24 Electronic Warfare Officer Relationship Specialty Start Date End Date Taras Woodruff DO [address] [place] [address] PCP - General Internal Medicine 05/29/24 Electronic Warfare Officer Relationship Specialty Start Date End Date Taras Woodruff DO [address] [place] [address] PCP - General Internal Medicine 05/29/24 Electronic Warfare Officer Relationship Specialty Start Date End Date Taras Woodruff DO [address] [place] [address] PCP - General Internal Medicine 05/29/24 Team Status: Inactive Member Role Status Dates Taras Woodruff DO Primary Care Provider Active Start: March 19, 2025 End: March 19, 2025 Taras Woodruff DO Attending Provider Active Sta rt: March 19, 2025 End: March 19, 2025 Electronic Warfare Officer Relationship Specialty Start Date End Date Taras Woodruff DO [address] [place] [address] PCP - General Internal Medicine 05/29/24 Electronic Warfare Officer Relationship Specialty Start Date End Date Taras Woodruff DO [address] [place] [address] PCP - General Internal Medicine 05/29/24 Electronic Warfare Officer Relationship Specialty Start Date End Date Taras Woodruff DO [address] [place] [address] PCP - General Internal Medicine 05/29/24 Goals [...] BE BASED ON THE PRIMARY CLINICAL RECORDS. [facility]. provides no warranty or guarantee of the accuracy or completeness of information in this document.
[2025-04-16 18:03] VITALS: BP 106/72; PULSE 94; O2SAT 92
== END 2025-04-16 18:11 | disposition home or self-care (01) ==
PROVIDERS: Emergency Provider Emergency Medicine; PCP Internal Medicine
DX: R31.9 Hematuria, unspecified (principal)
CPT/HCPCS: 99281

== ENCOUNTER 2025-05-20 13:50 | Outpatient (OUT) | payer OTHER, SELFPAY ==
--- OUTSIDE RECORDS SUMMARY | 2025-05-20 13:54 | XMS_ITS | CCD ---
Author Organization [facility]iniSyok Care Team Providers Care E [employer] Merchandising Coordinator Name Role Phone Unavailable Primary Care [...] Woodruff Unavailable Unavailable Primary Care Provider Unavailkayleigh e Unavailable Primary Care Provider UnavailTaras Chavez DO Primary Care Provider TARAS WOODRUFF Primary Care Physician [phone] Taras Woodruff DO Primary Care Provider [phone] Taras Woodruff DO Attending Provider [phone] Cole Nash MD Attending Provider Tremayne Gibson DO Attending Provider Cole Nash Attending Unavailable Cole Nash Admitting Unavailable Taras Woodruff Primary Care Unavailable Tremayne Gibson Admitting Unavailable Tremayne Gibson Attending Unavailable Taras Woodruff DO Primary Care Provider [phone] Shabana Page APRN Attending Provider [phone] Taras Woodruff DO Attending Provider EYAL RAE Referring Unavailable EYAL RAE Referring Unavailable ZHEN RIOS Referring Unavailable EYAL RAE Referring Unavailable EYAL RAE Attending Unavailable EYAL RAE Referring Unavailable AREN JONES Attending Unavailable COLE NASH Referring Unavailable TARAS WOODRUFF Primary Care Unavailable Adama MARTÍNEZ Attending Unavailable TREMAYNE GIBSON Attending Unavailable TREMAYNE GIBSON Referring Unavailable KACY, TARAS E Primary Care Unavailable PAIGE, TREMAYNE Marks Attending Unavailable TREMAYNE GIBSON Referring Unavailable KACY, TARAS E Primary Care Unavailable ENGELER, G VIKTOR Referring Unavailable ENGELER, G VIKTOR Attending Unavailable BALL, TARAS E Primary Care Unavailable ENGELER, G VIKTOR Referring Unavailable ENGELER, G VIKTOR Referring Unavailable BALL, TARAS E Primary Care Unavailable ENGELER, G VIKTOR Attending Unavailable ENGELER, G VIKTOR Referring Unavailable BALL, TARAS E Primary Care Unavailable ENGELER, G VIKTOR Attending Unavailable BALL, TARAS Referring Unavailable NASH, Cole R Attending Unavailable NASH, Cole R Attending Unavailable NASH, Cole R Attending Unavailable NASH, Cole R Attending Unavailable NASH, Cole R Attending Unavailable NASH, Cole R Attending Unavailable NASH, Cole R Attending Unavailable NASH, Cole R Attending Unavailable NASH, Cole R Attending Unavailable NASH, Cole R Attending Unavailable Medications Current Medications Medication Drug [...] tablet (20 sources) HMG-CoA Reductase Inhibitor Start: 10-06-2024 End: 03-13-2025 atorvastatin 80 mg Tab 80 mg = 1 tab(s), Refills(s) 0 Start Date: 11/24/24 Status: Ordered Repeat number: 1 take 1 tablet by mouth once jen [...] 120 mg/24 hours oral capsule, extended release (3 sources) Start: 5 DilTIAZem (Eqv-Cardizem CD) 120 mg/24 [...] tablet Active 10 MG PO As Directed 21 04March 19, 2025 12:00am 1 tab tid w/ [...] Start: 08-10-2023 take 1 capsule by mo [facility] every eight hours Benzonatate 100 [...] Date Documented Da te Episodic/Chronic Abdominal hernia (12 sources) Inguinal hernia; Translations: [Unilateral inguinal hernia, without obstruction or gangrene, not specified as recurrent] 11-26-2020 Episodic Acute bronchitis (8 sources) Acute bronchitis; Translations: [Acute bronchitis due to other specified organisms] Onset: 11-17-2014 Episodic Aortic; peripheral; and visceral artery aneurysms (5 sources) Aneurysm of ascending aorta; Translations: [Ascending aortic aneurysm] 10-03-2024 Chronic Comment on above: CTA: 4.2cm - 2019, 4 .2cm - 2023 Cancer of prostate (12 sources) Malignant neoplasm of prostate; Translations: [Malignant tumor of prostate] Onset: 01-05-2025 Chronic Comment on above: TRUS/Bx 12/2024,Gleas on 3+3, grp I Cardiac dysrhythmias (17 sources) Paroxysmal atrial fibrillation; Translations: [Paroxysmal atrial fibrillation] Chronic Comment on above: Echo: LVEF 60%, norm al RV size/function, RVSP 23, ascending aorta 4.5cm - 10/2024 Cardiac dysrhythmias (14 sources) Bradycardia; Translations: [Bradycardia, unspecified] 10-03-2024 Episodic Chronic kidney disease (8 sources) Chronic kidney disease stage 3; Translations: [Chronic kidney disease, stage 3 unspecified] Onset: 05-06-2018 10-03-2024 Chronic Chronic obstructive pulmonary disease and bronchiectasis (3 sources) Bronchitis; Translations: [Bronchitis NOS] Episodic Conduction disorders (20 sources) Presence of cardiac pacemaker; Translations: [Cardiac pacemaker] Onset: 08-29-2023 Chronic Disorders of lipid metabolism (20 sources) [...] spondylolisthesis; Translations: [Spondylolisthesis, lumbosacral region] Episodic Other diseases of bladder and urethra (1 source) Detrusor overactivity; Translations: [Overactive bladder] Onset: 05-18-2025 Chronic Other gastrointestinal disorders (2 sources) Slow transit [...] conditions (not mental disorders or infectious disease) (11 sources) Encounter for screening for malignant neoplasm of prostate; Translations: [Patient encounter status] Onset: 10-08-2022 10-06-2024 Episodic Comment on above: PSA: 2.60 - 01/2021, 3.9 - 09/2023, 4. - 10/2024 Other upper respiratory infections (13 [...] disorder)] Onset: 05-29-2024 Chronic Residual codes; unclassified (2 sources) Family history of cancer; Translations: [Family history of malignant neoplasm of prostate] Onset: 01-05-2025 Episodic Residual codes; unclassified (3 sources) Family history of prostate cancer 11-24-2024 Episodic Spondylosis; intervertebral disc disorders; other back problems (6 sources) Lumbosacral spondylosis without myelopathy; Translations: [Spondylosis without myelopathy or radiculopathy, lumbar region] 08-11-2020 Chronic Syncope (1 source) Syncope and collapse Episodic Unclassified (20 sources) Parkinson's disease; Translations: [PD (Parkinson's disease)] Onset: 10-06-2021 05-10-2023 Chronic Unclassified (3 sources) Body mass index 20-24 - normal 01-11-2021 Unclassified (1 source) Consult Onset: 01-09-2025 Unclassified [...] Test Name Value Interpretation Reference Range Facility Urology Office/Clinic Noteon 05-18-2025 Urology Office/Clinic Note Urology Office/Clinic Note Chief Complaint S/P radium seed HPI Staff F/u to S/p brachytherapy 04/16/25. Cath removed 04/23/25. Dx: prostate cancer, BPH with obstruction/LUTS and family hx of prostate cancer (father) IPSS: 15 has some pinching, discomfort before urination denies visible blood, denies abdominal/flank pain. History of Present Illness Tests reviewed: UA, op note I have reviewed the previous health record [...] HPI. Physical Exam Vitals & Measurements T: 35.6 ???C(Temporal Artery) RR: 14 BP: 118/72 HT: 195 cm HT: 77 in WT: 88.5 kg WT: 195.109 lb BMI: 23.27 General Appearance: alert, no distress, well nourished, well developed adult. Assessment/Plan 1. Prostate cancer (C61: Malignant neoplasm of prostate) PSA: 01/13/21 - 2.60 10/03/22 - 3.08 10/16/24 - 4.21 11/13/24 - 4.10 & 12.4% (after 1 month course of Bactrim per PCP) CHAUNCEY 11/24/24: 25g, hard nodule at L base. Denied prostate MRI at [facility] due to pacemaker, was advised imaging could only be done on 1.5T vs 3T machine. TRUS/bx 12/23/24 - Adeline 6 (3+3), GG1 x6/18 cores. Highest percent involvement 80%. S/p brachytherapy 04/16/25. Cath removed 04/23/25. Noticing some increased urgency and frequent, small volume voids which he did not have prior to procedure. Had one episode of UUI. Offered to add bladder med to help with PO irritative sx. Pt prefers to cont sx monitoring. Voices only recently over the past few days that sx have worsened. Advised pt his sx may worsen while he is healing, pt can call if he changes his mind and would like to try bladder med. Has PSA blood draw scheduled for next week. Follow up 3-4 mos with PSA (from rad onc?) or sooner if needed. Pt understands and agrees with plan. 2. OAB (overactive bladder) (N32.81: Overactive bladder) See #1. -Pt to call if he changes his mind and would like to start bladder med for urgency/frequency 3. BPH with obstruction/lower urinary tract symptoms (N40.1: Benign prostatic hyperplasia with lower urinary tract symptoms) UA neg. IPSS 15 (4). No BPH meds. Feels he empties completely but has never had a strong flow. Has a weak stream. Offered to start Flomax which will help with his weak stream and may also help with PO irritative sx (see #1). Pt defers at this time. 4. Family history of prostate cancer in father (Z80.42: Family history of malignant neoplasm of prostate) Father received tx, unsure if cryotherapy vs radiation. [1] Follow-up With When Contact Information CHARITY TAFOYA, Cole Contreras, URL [facility] [address], [place] [address]- Additional Instructions: 3-4 mos with PSA (from rad onc? if not, please order PSA) Patient Education Brachytherapy for Prostate Cancer, Care After I, Daxa Leung, personally scribed for Dr. Nash on 05/18/2025 10:20:06. . Documentation recorded by the scribe, Daxa Leung, accurately reflects the services(s) I performed and decisions made by me. Authenticated by Dr. Nash on 05/18/2025 10:21:51. Problem List/Past Medical History Ongoing BMI 20.0-20.9, adult BPH with obstruction/lower urinary tract symptoms Family history of prostate cancer in father Lumbar spondylosis Pacemaker Parkinson disease Paroxysmal atrial fibrillation Prostate cancer Pure hypercholesterolemia Right inguinal hernia Symptomatic bradycardia [...] Smokeless Tobacco Use:. Household tobacco concerns: No., 05/18/2025 Family History Diabetes mellitus type II: Father. Heart disease: Father. Immunizations Vaccine (more content not included)... Normal [facility] Comment on above: Result Comment: Elec tronically Signed By: Cole NASH MD\.br\Date and Time Signed: 05/18/25 10:21 EDT\.br\Electronically Co-Signed By: Daxa Leung\.br\Date and Time Co-Signed: 05/18/25 10:20 EDT CNOVon 05-07-2025 CNOV Office Visit (RADTSA ) COLE RAMOS Juanita ([id number]) 1960 M Date Time Provider Department 05/07/25 2:30 PM Adama MARTÍNEZ During your visit today, we recorded the following information about you: Temperature Pulse Respiration Blood pressure 98.7 degrees 77/minute 16/minute 129/86 Weight 88.7 kg Deepika Merino RN 05/14/2025 2:56 PM Signed AUA= 10 Adama Martínez MD 05/14/2025 2:56 PM Signed Radiation Oncology - Follow Up Note PATIENT NAME: Cole Ramos PATIENT DIAGNOSIS: Prostate adenocarcinoma, initial PSA 4.2, biopsy Aurora score 3 + 3 = 6 (grade group 1), clinical stage T2a, N0, M0, stage I [cT1a-c/T2a, N0, M0, PSA <10, GG 1] (AJCC 8th ed.), s/p biopsy. NCCN Risk Group: Low Risk Group RADIATION SUMMARY: Prostate brachytherapy 04/16/25, I125, 145 Gy INTERVAL HISTORY: The patient presents for routine follow-up after recent prostate seed implant. He states he has been doing well. months after having last been seen. PSA HISTORY: No results found for: PSA , PSAPER ALLERGIES No Known Allergies carbidopa-levodopa (SINEMET) 25-100 mg per tablet Take 1 tablet by mouth four times daily. atorvastatin (LIPITOR) 80 mg tablet Take 80 mg by mouth once daily. (Patient taking differently: Take 80 mg by mouth once daily. Every other day) dilTIAZem CR (TIAZAC, TAZTIA XT) 120 mg 24 hr capsule Take 240 mg by mouth once daily. aspirin 325 mg tablet Take 325 mg by mouth once daily. REVIEW OF SYSTEMS: D/N = 4-01/04 Hematuria: none Dysuria: none Incontinence: none Urgency: mild Medications to aid urination: no Bowel movement frequency: 1/day Bowel movement quality: normal Blood per rectum: none PHYSICAL EXAM: BP 129/86 Pulse 77 Temp 37.1 ?C (98.7 ?F) Resp 16 Wt 88.7 kg (195 lb 8.8 oz) SpO2 97% BMI 23.19 kg/m? KPS: 100 General Appearance: Alert and oriented. No acute distress. Rectal deferred, Perineal area without ecchymosis tenderness or seroma. ASSESSMENT/PLAN: Prostate adenocarcinoma, initial PSA 4.2, biopsy Aurora score 3 + 3 = 6 (grade group 1), clinical stage T2a, N0, M0, stage I [cT1a-c/T2a, N0, M0, PSA <10, GG 1] (AJCC 8th ed.), s/p biopsy. NCCN Risk Group: Low Risk Group status post prostate brachytherapy 04/16/2025. Patient overall doing well with improving post-implant urinary issues. No other new problems. Plan to have patient back in 2 weeks for post-implant CT, return for follow-up exam in 4 weeks. He continues close follow-up with his urologist as well. cc: Taras Woodruff (Krissy) [address] [place] [address] Dr. Nash Referring Provider: Adama MARTÍNEZ [[id number]] Allergies As of Date: 05/07/2025 (No Known Allergies) Date Reviewed: 05/07/2025 Reviewed by: Deepika Merino RN - Fully Assessed Reason for Visit: Prostate Cancer [590] Primary Visit Diagnosis:Malignant neoplasm of prostate (HCC) [C61] Order(s):PSA/PROSTATE SPECIFIC ANTIGEN SCREENING [SQPSAS1] Order #: [id number] FUTURE Prescriptions as of 05/14/2025 - carbidopa-levodopa (SINEMET) 25-100 mg per tablet Take 1 tablet by mouth four times daily. - atorvastatin (LIPITOR) 80 mg tablet Take 80 mg by mouth once daily. - dilTIAZem CR (TIAZAC, TAZTIA XT) 120 mg 24 hr capsule Take 240 mg by mouth once daily. - aspirin 325 mg tablet Take 325 mg by mouth once daily. 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 Encounter Status:Closed by Adama MARTÍNEZ on 05/14/25 [facility] Orders Onlyon 04-26-2025 Orders Only [id number] Jurgen Ramos 1960 M Date Provider Department Center 04/26/2025 Kaylie-EYAL RAE [facility] CARD [facility] Family History Family Status - Relation Status Age at Mother Alive Father Normal [facility] CNOVon 04-16-2025 CNOV Office Visit (MARYTSA ) COLE RAMOS ([id number]) 1960 M Date Time Provider Department 04/16/25 8:00 AM Adama MARTÍNEZ During your visit today, we recorded the following information about you: Adama Martínez MD 04/22/2025 2:46 PM Signed Date: 04/16/2025 Facility: [facility] Procedure: prostate transperineal brachytherapy implant Sources: Iodine 125 Anesthesia:general Urologist: Dr. Nash This is an operative report supplement to Dr. Nash note. Prior the the implant patient underwent planning using transrectal ultrasound based. The planning including outline of prostate and planning margin around prostate to deliver 145 Gy using I-125 sources. It was determined 60 sources, for a total of 22.92 mCi was necessary using 17 needles. Prior to the procedure on the morning of the implant, patient identified by name and hospital ID maria luz. After anesthesia administered patient placed in dorsal-lithotomy position and ultrasound study done showing good correlation with planning images and excellent visualization of the gland. Implant was then carried out using transperineal technique with active ultrasound and fluoroscopic guidance. At the end of the case the treatment planning ultrasound computer showed captured seed located in expected position with appropriate target coverage, no extra seeds implanted. X-ray image showed good seed distribution and all 60 sources. Intraoperative dosimetry reviewed showing D90 of >90%, and excellent coverage of gland by the 100% IDL. After the cystoscopy physics performed survey with meter of patient, cystoscopy fluid, floor, trash, work table and general area. No excess activity seen, results documented. Terrence Martínez MD [facility] Referring Provider: Adama MARTÍNEZ [[id number]] Allergies As of Date: 04/16/2025 (No Known Allergies) Date Reviewed: 01/09/2025 Reviewed by: Deepika Merino, RN - Fully Assessed Primary Visit Diagnosis:Malignant neoplasm of prostate (HCC) [C61] Prescriptions as of 04/22/2025 - carbidopa-levodopa (SINEMET) 25-100 mg per tablet Take 1 tablet by mouth four times daily. - atorvastatin (LIPITOR) 80 mg tablet Take 80 mg by mouth once daily. - dilTIAZem CR (TIAZAC, TAZTIA XT) 120 mg 24 hr capsule Take 240 mg by mouth once daily. - aspirin 325 mg tablet Take 325 mg by mouth once daily. 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 03-31-2025 [facility] Telephone (RADTSA) COLE RAMOS ([id number]) 1960 Date Time Provider Department 03/31/25 Adama MARTÍNEZ RADVisConProA During your visit today, we recorded the [...] Allergies) Date Reviewed: 01/09/2025 Reviewed by: Deepika Merino, RN - Fully Assessed Reason for Visit: [...] Status:Closed by DEEPIKA MERINO on 03/31/25 [facility] Office Visiton 03-18-2025 Follow-up visit [id number] Jurgen Ramos 1960 Date Provider Department Center 03/18/2025 166-AREN JONES CARD Marsha Bateman Family History Family Status - Relation Status Age at Mother Alive Father Level of Service:12101 [place] OFFICE/OUTPATIENT ESTABLISHED MOD MDM 30 MIN Reason for Visit and Comments: Pre-op Exam [580689] Atrial Fibrillation [80] Normal [facility] No Panel InformationOrdered By: Shabana Page on 03-13-2025 Quick Strep (POC) [facility] CNPNon 02-09-2025 CNPN Telephone (RADTSA) COLE RAMOS ([id number]) 1960 M Date Time Provider Department 02/09/25 [...] Encounter Status:Closed by DEEPIKA MERINO on 03/13/25 [facility] Olivia 01-14-2025 CNPN Telephone (RADTSA) COLE RAMOS ([id number]) 1960 Date Time Provider Department 01/14/25 Adama [...] schedule this? Thank you NATHAN Messer Angela, ANTHAN 01/15/2025 1:43 PM Signed Scheduling process started [...] Status:Closed by JENNIFER SAL on 01/15/25 [facility] 36on 01-12-2025 36 Bertha Posdaa MA P Cardiology Clinical Support Pool Caller: Unspecified (3 days ago, 1:41 PM) Previous Messages Patient Call (Newest Message First) View All Conversations on this Encounter Bertha Posada MA routed conversation to Cardiology Clinical Support Pool3 days ago Meg Wilkinson MA routed conversation to [facility] Cardiology Clinic Clinical Support Pool3 days ago Meg Wilkinson MA3 days ago Pili with [facility] would like to know if pt is pacemake dependent? Okay to leave message [phone] radiation nurses station. Spoke to [facility] advised them patient is not pacemaker dependent. Normal [facility] 36on 01-09-2025 36 Pili with [facility] would like to know if pt is pacemake dependent? Okay to leave message [phone] radiation nurses station. Normal [facility] CNOVon 01-09-2025 CNOV Office Visit (RADTSA ) COLE RAMOS ([id number]) 1960 M Date Time Provider Department 01/09/25 [...] risk adenocarcino (more content not included)... Normal [facility] 01-09-2025 [facility] Telephone (RADTSA) COLE RAMOS ([id number]) 1960 M Date Time Provider Department 01/09/25 Adama MARTÍNEZ During your visit today, we recorded the following information about you: Deepika Merino RN 01/09/2025 1:44 PM Signed I called and spoke to Meg at [phone], Dr. Santos's office, asking if Cole is pacemaker dependent. She is unsure but will call back [facility] with an update. NATHAN Gonzaels Angela, RN 01/12/2025 1:19 PM Signed Call received from NASH at [facility] Cardiology. PT is NOT pacemaker dependent. [...] Encounter Status:Closed by JENNIFER SAL on 01/20/25 [facility] CNOVon 01-08-2025 CNOV Office Visit (NRESAV ) COLE RAMOS ([id number]) 1960 M Date Time Provider Department 01/08/25 3:30 PM TREMAYNE GIBSON NRESAV During your visit today, we recorded the following information about you: Pulse Blood pressure 80/minute 110/78 GosTremayne sanchez DO 01/11/2025 3:46 PM Signed [facility] - FOLLOW UP EVALUATION Recording using ambient [employer] software for draft documentation of the visit was discussed with the patient/authorized home furnishings sales representative; all questions welcomed and answered. Patient/authorized home furnishings sales representative agreed to proceed Taras Woodruff DO [address] [facility] [address] Dear Taras Woodruff DO: I had the [...] He recalls a previous swallow study at [facility] and participated in speech therapy [...] CR (TIA (more content not included)... Normal [facility] Ambulatory Visit Summaryon 0 01-05-2025 [...] to rad/onc Where: [facility] [address] [place] [address]- [phone] Someone Will Contact You Regarding These Appointments [facility] External Ambulatory Referral, Other (needs to be [...] involve imagin (more content not included)... Normal [facility] Ambulatory Visit Summary Ambulatory Visit Summary [...] Where: [facility] [address] [place] [address]- [phone] Someone Will Contact You Regarding These Appointments [facility] External Ambulatory Referral, Other (needs to be [...] imagin (more content not included)... Normal [facility] Urology Office/Clinic Noteon 01-05-2025 Urology Office/Clinic [...] [place]. Denied prostate MRI at [facility] due to pacemaker ,was advised imaging could only be done on 1.5T vs 3T machine. TRUS/bx 12/23/24 - Aurora 6 (3+3), GG1 x6/18 cores. Highest percent [...] URL [facility] [address], [place] [address]- [phone] Additional Instructions: referral to rad/onc Patient Education Prostate Cancer Keisha Bond, personally scribed for Dr. Nash on 01/05/2025 09:35:23. . Documentation recorded by the jimboibKeisha jara, accurately reflects the services(s) I performed [...] Not Given (more content not included)... Normal [facility] Comment on above: Result Comment: Elec tronically Signed By: Cole NASH MD\.br\Date and Time Signed: 01/05/25 09:37 EDT\.br\Electronically Co-Signed By: Keisha Moscoso\.br\Date and Time Co-Signed: 01/05/25 09:35 EDT No Panel InformationOrdered By: Cole Nash on 12-23-2024 Miscellaneous Pathology Test See comment [facility] Comment on above: See report. Scanned copy available in EMR. Pathology Request for Lab Co rpon 12-23-2024 Pathology Request for Lab Deb Normal [facility] Comment on above: Order Comment: PROST ATE BX Result Comment: See report. Scanned copy available in EMR. PERFORMED BY: [facility] [place] [address] PATHOLOGIST USPS LETTER CARRIER KARLA AGUILAR M.D. Performed By: #### P ATH TO [facility] #### [facility] [address] [id number] [facility] Ambulatory Visit Summaryon 0 11-24-2024 Ambulatory [...] and bx Where: [facility] [address] [place] [address]- [phone] Medications What How Much When Why Instructions New ciprofloxacin (Cipro 500 mg Tab) 1 Tablets By Mouth 2 times a day Elevated PSA Duration: 7 Days start 3 days prior to procedure Pickup at [facility]/pharmacy #[id number] Unchanged aspirin (aspirin 325 mg Oral EC [...] physician if questions or concerns Pharmacy Information [facility]/pharmacy #[id number]: [address], [place] [id number] [phone] Allergies No Known Allergies Problems Ongoing - [...] including vitamins, herbs, eye drops, creams, and giix-rmt-snyrfgo medicines. ??? Any surgeries you have had. [...] medicines given (more content not included)... Normal [facility] Ambulatory Visit Summary Ambulatory Visit Summary [...] and bx Where: [facility] [address] [place] [id number] Medications What How Much When Instructions Unchanged [...] including vitamins, herbs, eye drops, creams, and kjrs-rkf-egpunko medicines. ??? Any surgeries you have had. [...] tests during (more content not included)... Normal [facility] No Panel Informationon 11-13 Free Prostate Specific Antigen 0.51 ng/mL N/A [facility] Comment on above: Uma ECLIA methodol ogy. Prostate Specific Antigen Total 4.1 ng/mL Abnormal 0.0-4.0 [facility] Comment on above: Uma ECLIA methodol ogy.According to the [employer], Serum PSAshould decrease and remain [...] PSA/Total PSA [Mass fraction] 12.4 % . [facility] Comment on above: The table [...] other population of men.Performed at: - [facility] [id number] [place], [place] [id number] Director: Liam Galvan PhD, Phone: [phone] 36on 10-16-[address] Rae. You saw this patient in Aug 2024 and reduced cardizem down to 120mg from 240mg because his BP was 98/70 in the office. He just had echo done at [facility] and model technician said he had an episode of HR in the 130's-140's. BP is 138 systolic. Can he go back up to cardizem 240mg daily? Per Dr. Rae : we need to see what the event is.. have a device check to see what rhythm issue it was Spoke with patient and Aldair from [email or web address]. We will do check in [facility] on 10/20/2024 at 10am. [facility] Office Visiton 09-02-2024 Follow-up visit [id number] Jurgen Ramos 1960 M Date Provider Department Center 09/02/2024 EYAL VILLARREAL [facility] No family history on file Level of Service:[address]4280 [place] OFFICE/OUTPATIENT ESTABLISHED LOW MDM 20 MIN [facility] 36on 07-10-2024 36 Regarding labs from [...] lots of things going on for him. [facility] Orders Onlyon 07-02-2024 Orders Only [id number] Jurgen Ramos 1960 M Date Provider Department Center 07/02/2024 [id number] No family history on file Normal [facility] CNOVon 05-29-2024 CNOV Office Visit (NRESAV ) COLE RAMOS ([id number]) 1960 M Date Time Provider Department 05/29/24 1:00 PM TREMAYNE GIBSON NRESAV During your visit today, we recorded the following information about you: Pulse Blood pressure 74/minute 141/85 Tremayne Gibson DO 05/29/2024 1:39 PM Signed [facility] - FOLLOW UP EVALUATION Taras Woodruff DO [address] [facility] [address] Dear Taras Woodruff DO: I had the [...] Examination: G (more content not included)... Normal [facility] CNPNon 05-03-2024 [facility] COLE RAMOS ([id number]) 1960 M Date Time Provider Department 05/03/24 MARI ROSAS FVPRAD During your visit today, we recorded the following information about you: Mari Rosas DO 05/03/2024 12:42 PM Signed Patient called stating he was out of town and needed 10 pills of Sinemet to [facility] in [place]. 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 Rosalio Burks Basophils/100 WBC (Bld) 0.3 % Normal 0.2-2.0 [facility] Comment on above: Performed By: #### C BC #### [facility] [address], [place] [address] Dr. Rosalio Burks EO # 0.1 103/ul Normal 0.0-0.7 [facility] Comment on above: Performed By: #### C BC #### [facility] [address] [place] [address] Dr. Rosalio Burks Eosinophils/100 WBC (Bld) 1.0 % Normal 0.9-7.0 [facility] Comment on above: Performed By: #### C BC #### [facility] [address] [place] [address] Dr. Rosalio Burks Erythrocyte distribution width (RBC) [Ratio] 11.7 % Normal 11.0-15.0 [facility] Comment on above: Performed By: #### C BC #### [facility] [address] [place] [address] Dr. Rosalio Burks Hematocrit (Bld) [Volume fraction] 43.2 % Normal 42.0-54.0 [facility] Comment on above: Performed By: #### C BC #### [facility] [address] [place] [address] Dr. Rosalio Burks Hemoglobin (Bld) [Mass/Vol] 15.0 g/dL Normal 14.0-18.0 [facility] Comment on above: Performed By: #### C BC #### [facility] [address] [place] [address] Dr. Rosalio Burks IG # 0.02 10e3/ul Normal 0.00-0.03 [facility] Comment on above: Performed By: #### C BC #### [facility] [address] [place] [address] Dr. Rosalio Burks IG % 0.3 % Normal 0.0-0.5 [facility] Comment on above: Performed By: #### C BC #### [facility] [address] [place] [address] Dr. Rosalio Burks LYMPH # 1.5 103/ul Normal 1.2-3.8 [facility] Comment on above: Performed By: #### C BC #### [facility] [address] [place] [address] Dr. Rosalio Burks Lymphocytes/100 WBC (Bld) 23.3 % Normal 20.5-60.0 [facility] Comment on above: Performed By: #### C BC #### [facility] [address] [place] [address] Dr. Rosalio Burks MANUAL DIFF REQ NO Normal [facility] Comment on above: Performed By: #### C BC #### [facility] [address] [place] [address] Dr. Rosalio Burks MCH (RBC) [Entitic mass] 31.9 pg Normal 25.9-34.0 [facility] Comment on above: Performed By: #### C BC #### [facility] [address] [place] [address] Dr. Rosalio Burks MCHC (RBC) [Mass/Vol] 34.7 g/dL Normal 29.9-35.2 [facility] Comment on above: Performed By: #### C BC #### [facility] [address] [place] [address] Dr. Rosalio Burks MCV (RBC) [Entitic vol] 91.9 fL Normal 80.0-94.0 [facility] Comment on above: Performed By: #### C BC #### [facility] [address] [place] [address] Dr. Rosalio Burks MONO # 0.6 103/ul Normal 0.3-0.8 [facility] Comment on above: Performed By: #### C BC #### [facility] [address] [place] [address] Dr. Rosalio Burks Monocytes/100 WBC (Bld) 10.1 % Normal 1.7-12.0 [facility] Comment on above: Performed By: #### C BC #### [facility] [address] [place] [address] Dr. Rosalio Burks NEUT # 4.0 103/ul Normal 1.4-6.5 [facility] Comment on above: Performed By: #### C BC #### [facility] [address] [place] [address] Dr. Rosalio Burks Neutrophils/100 WBC (Bld) 65.0 % Normal 43.0-75.0 [facility] Comment on above: Performed By: #### C BC #### [facility] [address], [place] [address] Dr. Rosalio Burks Platelet mean volume (Bld) [Entitic vol] 10.3 fL Normal 9.5-13.5 [facility] Comment on above: Performed By: #### C BC #### [facility] [address], [place] [address] Dr. Rosalio Burks PLT 268 103/ul Normal 150-450 [facility] Comment on above: Performed By: #### C BC #### [facility] [address] [place] [address] [address] Rosalio Burks RBC 4.70 106/ul Normal 4.70-6.10 [facility] Comment on above: Performed By: #### C BC #### [facility] [address] [address] [address] Rosalio Burks WBC 6.2 103/ul Normal 4.0-11.0 [facility] Comment on above: Performed By: #### C BC #### [facility] [address] [address] [address] Rosalio Burks Complete Blood Count and Dif gerald 10-03-2022 Anisocytosis Ql (Bld) [facility] [employer] Other Basophilic stippling LM Ql (Bld) [facility] [employer] Other RBC morphology finding Nom (Bld) [facility] [employer] Other Complete Blood Count and Diff [employer] [facility] [employer] Other Comprehensive Metabolic Pane laura 10-03-2022 Albumin [Mass/Vol] 3.213274 g/dL 3.4-5.0 g/dL [employer] Other Calcium [Mass/Vol] 9.3551105 mg/dL 8.5-10 .1 mg/dL [employer] Other CO2 [Moles/Vol] 30.74543872 mmol/L 21.0-3 2.0 mmol/L [employer] Other Creatinine [Mass/Vol] 1.16769818 mg/dL 0. 70-1.30 mg/dL [employer] Other Potassium [Moles/Vol] 4.89571969 mmol/L 3 .5-5.1 mmol/L [employer] Other Protein [Mass/Vol] 7.624709 g/dL 6.4-8.2 g/dL [employer] Other Urea nitrogen [Mass/Vol] 17.5292371 mg/dL 7.0-18.0 mg/dL [employer] Other Comprehensive Metabolic Panel see note [employer] Other Comprehensive Metabolic Panel 141 mmol/L 136-145 mmol/L [employer] Other Comprehensive Metabolic Panel 83 mg/dL 74-106 mg/dL [employer] Other Comprehensive Metabolic Panel >60 mL/min/1.73m2 >=60 mL/min/1.73 m2 [employer] Other Comprehensive Metabolic Panel 0.3 mg/dL 0.2-1.0 mg/dL [employer] Other Comprehensive Metabolic Panel 3.4 g/dL [employer] Other LIPID PROFILEon 10-03-2022 CHOL-HDL RATIO NORM SEE BELOW Normal [facility] Comment on above: Result Comment: 3.3 - 4.4 LOW RISK 4.4 - 7.1 AVERAGE RISK 7.1 - 11.0 MODERATE RISK >11.0 HIGH RISK Performed By: #### C MP, LIPID #### [facility] [address] [place] [address] [address] Rosalio Burks Cholesterol [Mass/Vol] 202 mg/dL Critically high <=200 mg/dL [facility] Comment on above: Performed By: #### C MP, LIPID #### [facility] [address] [address] [address] Rosalio Burks Cholesterol in HDL [Mass/Vol] 33 mg/dL Critically low 40-60 mg/dL [facility] Comment on above: Performed By: #### C MP, LIPID #### [facility] [address] [address] [address] Rosalio Burks Cholesterol in LDL [Mass/Vol] 106.4 mg/dL Normal [facility] Comment on above: Performed By: #### C MP, LIPID #### [facility] [address] [address] [address] Rosalio Burks Cholesterol.total/Cho lesterol in HDL [Mass ratio] 6.1 {ratio} [facility] Comment on above: Performed By: #### C MP, LIPID #### [facility] [address] [place] [address] Dr. Rosalio Burks HDL NORMAL > or = 60 mg/dl - LO W CARDIOVASCULAR RISK <40 mg/dl - HIGH CARDIOVASCULAR RISK Normal [facility] Comment on above: Performed By: #### C MP, LIPID #### [facility] [address] [place] [address] Dr. Rosalio Burks LDL CALC NORMAL SEE BELOW Normal [facility] Comment on above: Result Comment: <100 mg/dl OPTIMAL 100 - 129 mg/dl NEAR OR ABOVE OPTIMAL 130 - 159 mg/dl BORDERLINE HIGH 160 - 189 mg/dl HIGH >190 mg/dl VERY HIGH Performed By: #### C MP, LIPID #### [facility] [address] [place] [address] Dr. Rosalio Burks Triglyceride [Mass/Vol] 313 mg/dL Critically high <=150 mg/dL [facility] Comment on above: Performed By: #### C MP, LIPID #### [facility] [address] [place] [address] Dr. Rosalio Burks VLDL CALC 62.6 mg/dL Normal [facility] Comment on above: Performed By: #### C MP, LIPID #### [facility] [address] [place] [address] Dr. Rosalio Burks Lipid Panelon 10-03-2022 Lipid Panel > or = 60 mg/dl - LO W CARDIOVASCULAR RISK <40 mg/dl - HIGH CARDIOVASCULAR RISK [employer] Other Lipid Panel SEE BELOW [employer] Other Lipid Panel 106.4 mg/dL [employer] [facility] [employer] Other Lipid Panel 62.6 mg/dL [employer] [facility] [employer] Other PROF 14(COMP METB)on 023 Albumin [Mass/Vol] 3.9 g/dL Normal 3.4-5.0 [facility] Comment on above: Performed By: #### C MP, LIPID #### [facility] [address] [place] [address] Dr. Rosalio Burks Albumin/Globulin [Mass ratio] 1.1 {ratio} [facility] Comment on above: Performed By: #### C MP, LIPID #### [facility] [address] [place] [address] Dr. Rosalio Burks ALP [Catalytic activity/Vol] 108 U/L 46-116 U/L [facility] Comment on above: Performed By: #### C MP, LIPID #### [facility] [address] [place] [address] Dr. Rosalio Burks ALT [Catalytic activity/Vol] 15 U/L Critically low 16-63 U/L [facility] Comment on above: Performed By: #### C MP, LIPID #### [facility] [address] [place] [address] Dr. Rosalio Burks Anion gap [Moles/Vol] 10.4 mmol/L [facility] Comment on above: Performed By: #### C MP, LIPID #### [facility] [address] [place] [address] Dr. Rosalio Burks AST [Catalytic activity/Vol] 15 U/L 15-37 U/L [facility] Comment on above: Performed By: #### C MP, LIPID #### [facility] [address] [place] [address] Dr. Rosalio Burks Bilirubin [Mass/Vol] 0.3 mg/dL Normal 0.2-1.0 [facility] Comment on above: Performed By: #### C MP, LIPID #### [facility] [address] [place] [address] Dr. Rosalio Burks Calcium [Mass/Vol] 9.0 mg/dL Normal 8.5-10.1 [facility] Comment on above: Performed By: #### C MP, LIPID #### [facility] [address] [place] [address] Dr. Rosalio Burks Chloride [Moles/Vol] 104 mmol/L 98-107 mmol/L [facility] Comment on above: Performed By: #### C MP, LIPID #### [facility] [address] [place] [address] Dr. Rosalio Burks CO2 [Moles/Vol] 30.7 mmol/L Normal 21.0-32.0 [facility] Comment on above: Performed By: #### C MP, LIPID #### [facility] [address] [place] [address] Dr. Rosalio Burks Creatinine [Mass/Vol] 1.09 mg/dL Normal 0.70-1.30 [facility] Comment on above: Performed By: #### C MP, LIPID #### [facility] [address] [place] [address] Dr. Rosalio Burks EGFR-AF SWISS >60 Normal >=60 [facility] Comment on above: Performed By: #### C MP, LIPID #### [facility] [address] [place] [address] Dr. Rosalio Burks EGFR-NON AF SWISS >60 Normal >=60 [facility] Comment on above: Performed By: #### C MP, LIPID #### [facility] [address] [place] [address] Dr. Rosalio Burks Globulin (S) [Mass/Vol] 3.4 g/dL Normal [facility] Comment on above: Performed By: #### C MP, LIPID #### [facility] [address] [place] [address] Dr. Rosalio Burks Glucose [Mass/Vol] 83 mg/dL Normal 74-106 [facility] Comment on above: Performed By: #### C MP, LIPID #### [facility] [address] [place] [address] Dr. Rosalio Burks Potassium [Moles/Vol] 4.1 mmol/L Normal 3.5-5.1 [facility] Comment on above: Performed By: #### C MP, LIPID #### [facility] [address] [address] [address] Rosalio Burks Protein [Mass/Vol] 7.3 g/dL Normal 6.4-8.2 [facility] Comment on above: Performed By: #### C MP, LIPID #### [facility] [address] [place] [address] Dr. Rosalio Burks Sodium [Moles/Vol] 141 mmol/L Normal 136-145 [facility] Comment on above: Performed By: #### C MP, LIPID #### [facility] [address] [place] [address] Dr. Rosalio Burks Urea nitrogen [Mass/Vol] 17.0 mg/dL Normal 7.0-18.0 [facility] Comment on above: Performed By: #### C MP, LIPID #### [facility] [address] [place] [address] Dr. Rosalio Burks Urea nitrogen/Creatinine [Mass ratio] 15.6 mg/mg [facility] Comment on above: Performed By: #### C MP, LIPID #### [facility] [address] [place] [address] Dr. Rosalio Burks XR MODIFIED BARIUM SWALLOWon [...] by: MAMIE HOLDER Date: 2021-11-01 09:50 Normal [facility] Vital Signs Date Time Vital Sign Value Performing Clinician Facility 03-19-2025 11:06-0400 Body height 198.12 cm Taras Ball DO Work Phone: [facility] 03-19-2025 11:06-0400 Body mass index (BMI) [Ratio] 21.9 kg/m2 Taras Ball DO Work Phone: [facility] 03-19-2025 11:06-0400 Body temperature 97.3 [degF] Taras Ball DO Work Phone: [facility] 03-19-2025 11:06-0400 Body weight 85.95 kg Taras Ball DO Work Phone: [facility] 03-19-2025 11:06-0400 Diastolic blood pressure 88 mm[Hg] Taras Ball DO Work Phone: [facility] 03-19-2025 11:06-0400 Heart rate 110 /min Taras Ball DO Work Phone: [facility] 03-19-2025 11:06-0400 Respiratory rate 12 /min Taras Ball DO Work Phone: [facility] 03-19-2025 11:06-0400 Systolic blood pressure 127 mm[Hg] Taras Ball DO Work Phone: [facility] 03-13-2025 10:54-0400 Body height 198.12 cm Taras Ball DO Work Phone: [facility] 03-13-2025 10:54-0400 Body mass index (BMI) [Ratio] 22.1 kg/m2 Taras Ball DO Work Phone: [facility] 03-13-2025 10:54-0400 Body temperature 99 [degF] Taras Ball DO Work Phone: [facility] 03-13-2025 10:54-0400 Body weight 87.14 kg Taras Ball DO Work Phone: [facility] 03-13-2025 10:54-0400 Diastolic blood pressure 76 mm[Hg] Taras Ball DO Work Phone: [facility] 08-08-2025 10:54-0400 Heart rate 115 /min Taras Ball DO Work Phone: [facility] 03-13-2025 10:54-0400 Respiratory rate 18 /min Taras Ball DO Work Phone: [facility] 03-13-2025 10:54-0400 SaO2% (BldA) [Mass fraction] 98 % Taras Ball DO Work Phone: [facility] 03-13-2025 10:54-0400 Systolic blood pressure 112 mm[Hg] Taras Ball DO Work Phone: [facility] 01-09-2025 11:04-0400 Body height 195.6 cm ZAK Martínez MD Work Phone: [facility] 01-09-2025 11:04-0400 Body mass index (BMI) [Ratio] 23.14 kg/m2 ZAK Martínez MD Work Phone: [facility] 01-09-2025 11:04-0400 Body temperature 98.1 [degF] ZAK Martínez MD Work Phone: [facility] 01-09-2025 11:04-0400 Body weight 88.5 kg ZAK Martínez MD Work Phone: [facility] 01-09-2025 11:04-0400 Diastolic blood pressure 84 mm[Hg] ZAK Martínez MD Work Phone: [facility] 01-09-2025 11:04-0400 Heart rate 94 /min ZAK Martínez MD Work Phone: [facility] 01-09-2025 11:04-0400 Respiratory rate 16 /min ZAK Martínez MD Work Phone: [facility] 01-09-2025 11:04-0400 SaO2% (BldA) [Mass fraction] 97 % ZAK Martínez MD Work Phone: [facility] 01-09-2025 11:04-0400 Systolic blood pressure 120 mm[Hg] ZAK Martínez MD Work Phone: [facility] 01-08-2025 15:36-0400 Diastolic blood pressure 78 mm[Hg] Tremayne Gibson DO Work Phone: [facility] 01-08-2025 15:36-0400 Heart rate 80 /min Tremayne Paige DO Work Phone: [facility] 01-08-2025 15:36-0400 Systolic blood pressure 110 mm[Hg] Tremayne Gibson DO Work Phone: [facility] 10-06-2024 09:25-0500 Body height 198.12 cm [facility] 10-06-2024 09:25-0500 Body mass index (BMI) [Ratio] 22.8 kg/m2 [facility] 10-06-2024 09:25-0500 Body temperature 97.4 [degF] [facility] 10-06-2024 09:25-0500 Body weight 89.58 kg [facility] 10-06-2024 09:25-0500 Diastolic blood pressure 79 mm[Hg] [facility] 10-06-2024 09:25-0500 Heart rate 94 /min [facility] 10-06-2024 09:25-0500 Respiratory rate 16 /min [facility] 10-06-2024 09:25-0500 SaO2% (BldA) [Mass fraction] 98 % [facility] 10-06-2024 09:25-0500 Systolic blood pressure 111 mm[Hg] [facility] 05-29-2024 13:02-0400 Diastolic blood pressure 85 mm[Hg] Tremayne Gibson DO Work Phone: [facility] 05-29-2024 13:02-0400 Heart rate 74 /min Tremayne Gibson DO Work Phone: [facility] 05-29-2024 13:02-0400 Systolic blood pressure 141 mm[Hg] Tremayne Gibson DO Work Phone: [facility] 11-15-2023 10:54-0400 Diastolic blood pressure 75 mm[Hg] Tremayne Gibson DO Work Phone: [facility] 11-15-2023 10:54-0400 Heart rate 106 /min Tremayne Gibson DO Work Phone: [facility] 11-15-2023 10:54-0400 SaO2% (BldA) [Mass fraction] 97 % Tremayne Gibson DO Work Phone: [facility] 11-15-2023 10:54-0400 Systolic blood pressure 141 mm[Hg] Tremayne Gibson DO Work Phone: [facility] 08-16-2023 10:15-0500 Body height 190.5 cm Taras Ball Other [employer] Other 08-16-2023 10:15-0500 Body mass index (BMI) [Ratio] 22.3 kg/m2 Taras Ball Other [employer] Other 08-16-2023 10:15-0500 Body weight 80.92 kg Taras Ball Other [employer] Other 08-16-2023 10:15-0500 Diastolic blood pressure 70 mm[Hg] Taras Ball Other [employer] Other 08-16-2023 10:15-0500 Respiratory rate 12 /min Taras Ball Other [employer] Other 08-16-2023 10:15-0500 Systolic blood pressure 109 mm[Hg] Taras Ball Other [employer] Other 05-10-2023 10:46-0400 Diastolic blood pressure 87 mm[Hg] Tremayne Gibson DO Work Phone: [facility] 05-10-2023 10:46-0400 Heart rate 85 /min Tremayne Gibson DO Work Phone: [facility] 05-10-2023 10:46-0400 Systolic blood pressure 125 mm[Hg] Tremayne Gibson DO Work Phone: [facility] 03-13-2023 13:30-0400 Body height 190.5 cm Taras Ball Other [employer] Other 03-13-2023 13:30-0400 Body mass index (BMI) [Ratio] 24.42 kg/m2 Taras Ball Other [employer] Other 03-13-2023 13:30-0400 Body weight 88.63 kg Taras Ball Other [employer] Other 03-13-2023 13:30-0400 Diastolic blood pressure 78 mm[Hg] Taras Ball Other [employer] Other 03-13-2023 13:30-0400 Respiratory rate 12 /min Taras Ball Other [employer] Other 03-13-2023 13:30-0400 Systolic blood pressure 111 mm[Hg] Taras Ball Other [employer] Other 10-03-2022 14:00-0500 Body height 190.5 cm Taras Ball Other [employer] Other 10-03-2022 14:00-0500 Body mass index (BMI) [Ratio] 25.32 kg/m2 Taras Ball Other [employer] Other 10-03-2022 14:00-0500 Body weight 91.9 kg Taras Ball Other [employer] Other 10-03-2022 14:00-0500 Diastolic blood pressure 82 mm[Hg] Taras Ball Other [employer] Other 10-03-2022 14:00-0500 Respiratory rate 12 /min Taras Ball Other [employer] Other 10-03-2022 14:00-0500 Systolic blood pressure 118 mm[Hg] Taras Ball Other [employer] Other 09-19-2022 12:40-0500 Body height 190.5 cm Tabby Lindo Other [employer] Other 09-19-2022 12:40-0500 Body mass index (BMI) [Ratio] 26.25 kg/m2 Tabby Lindo Other [employer] Other 09-19-2022 12:40-0500 Body temperature 98.2 [degF] Tabby Lindo Other [employer] Other 09-19-2022 12:40-0500 Body weight 95.26 kg Tabby Lindo Other [employer] Other 09-19-2022 12:40-0500 Respiratory rate 18 /min Tabby Lindo Other [employer] Other 09-19-2022 12:40-0500 SaO2% (BldA) [Mass fraction] 96 % Tabby Lindo Other [employer] Other 09-08-2022 07:53-0500 Body height 195.6 cm Tremayne Gibson DO Work Phone: [facility] 09-08-2022 07:53-0500 Body weight 93.58 kg Tremayne Gibson DO Work Phone: [facility] 09-08-2022 07:53-0500 Diastolic blood pressure 93 mm[Hg] Tremayne Gostkowski DO Work Phone: [facility] 09-08-2022 07:53-0500 Heart rate 82 /min Tremayne Gostkowski DO Work Phone: [facility] 09-08-2022 07:53-0500 SaO2% (BldA) [Mass fraction] 94 % Tremayne Gostkowski DO Work Phone: [facility] 09-08-2022 07:53-0500 Systolic blood pressure 146 mm[Hg] Tremayne Gostkowski DO Work Phone: [facility] 12-29-2021 13:46-0400 Diastolic blood pressure 82 mm[Hg] Tremayne Gostkowski DO Work Phone: [facility] 12-29-2021 13:46-0400 Heart rate 99 /min Tremayne Mickeytkowski DO Work Phone: [facility] 12-29-2021 13:46-0400 Systolic blood pressure 114 mm[Hg] Tremayne Gostkowski DO Work Phone: [facility] [...] Date Encounter Type Care Provider Facility Start: 08-31-2025 ambulatory Cole Huddleston ty:[facility] Start: 08-24-2025 ambulatory Cole Huddleston ty:[facility] Start: 05-18-2025 End: 05-18-2025 ambulatory Cole NASH Facility:[facility] Start: 05-18-2025 End: 05-18-2025 Patient encounter procedure Cole NASH [facility] Start: 05-14-2025 ambulatory TARAS WOODRUFF Micky y:[facility] Start: 05-07-2025 End: 05-07-2025 ambulatory Adama MARTÍNEZ Facility:[facility] Start: 04-30-2025 ambulatory [facility] Start: 04-23-2025 End: 04-23-2025 ambulatory Cole NASH Facility:[facility] Start: 04-23-2025 End: 04-23-2025 Patient encounter procedure [facility] Start: 04-16-2025 End: 04-17-2025 ambulatory Adama MARTÍNEZ Facility:[facility] Start: 04-16-2025 End: 04-16-2025 ambulatory Cole NASH Facility:[id number] Start: 04-10-2025 End: 04-10-2025 Patient encounter procedure Ccf Provider [facility] Department Start: 04-07-2025 End: 04-09-2025 Patient [...] Start: 04-01-2025 End: 04-02-2025 ambulatory Adama MARTÍNEZ Facility:[facility] Start: 03-31-2025 End: 03-31-2025 Telephone encounter Adama Martínez MD Work Phone: Radiation Oncology Comment on above: Appointment Start: 03-30-2025 ambulatory Cole Huddleston ty:DAISY Larson Start: 03-19-2025 End: 03-19-2025 ambulatory Taras Woodruff DO Work Phone: [facility] Work Phone: Start: 03-19-2025 End: 03-19-2025 Patient encounter procedure Taras Woodruff DO -[facility] Work Phone: Start: 03-18-2025 End: 03-19-2025 ambulatory [facility] Start: 03-18-2025 End: 03-19-2025 Encounter for other preprocedural examination [facility] Start: 03-13-2025 End: 03-13-2025 ambulatory Taras Ball DO Work Phone: [facility] Work Phone: Start: 03-13-2025 End: 03-13-2025 Patient encounter procedure Shabana Palomino [facility] Work Phone: Start: 03-12-2025 ambulatory Cole Huddleston ty:[facility] Start: 02-24-2025 End: 02-24-2025 ambulatory EYAL RAE [facility] Start: 02-20-2025 ambulatory ZHEN RIOS [facility] Start: 02-04-2025 End: 02-04-2025 Patient encounter procedure Tremayne Gibson DO -ay [facility] Work Phone: Start: 02-04-2025 End: 02-04-2025 ambulatory Taras Ball DO Work Phone: [facility] Work Phone: Start: 01-16-2025 End: 01-16-2025 Patient encounter procedure Ccf Provider [facility] Start: 01-14-2025 End: 01-15-2025 Telephone encounter Adama [...] (Primary Dx) Start: 01-09-2025 End: 01-09-2025 ambulatory COLE NASH Facility:[facility] Start: 01-08-2025 End: 01-08-2025 Office outpatient visit 25 minutes Tremayne Gibson DO Work Phone: Neurology Comment on above: Parkinson's disease without dyskinesia or fluctuating manifestations (HCC) (Primary Dx); Slow transit constipation; Dysphagia, unspecified type Start: 01-08-2025 End: 01-08-2025 ambulatory TREMAYNE GIBSON Facility:[facility] Start: 01-05-2025 End: 01-05-2025 ambulatory Cole NASH Facility:[facility] Start: 01-05-2025 End: 01-05-2025 Patient encounter procedure Cole NASH [facility] Start: 12-23-2024 End: 12-23-2024 ambulatory Cole Nash Facility:[facility] Start: 12-23-2024 End: 12-23-2024 Departed [facility] Cole Nash MD -Lab [facility] Work Phone: Start: 12-23-2024 End: 12-23-2024 ambulatory Cole NASH Facility:[id number] Start: 12-11-2024 [facility] Start: 11-24-2024 End: 11-24-2024 ambulatory TARAS WOODRUFF Facility:[facility] Start: 11-17-2024 ambulatory TARAS WOODRUFF Facility: [facility] Start: 11-13-2024 Non-patient / Non-visit Taras thao DO -[facility] Work Phone: Start: 10-06-2024 End: 10-06-2024 ambulatory [facility] Work Phone: Start: 10-06-2024 End: 10-06-2024 Encounter for general adult medical examination without abnormal findings [facility] Start: 10-06-2024 End: 10-06-2024 Patient encounter procedure [facility] Work Phone: Start: 09-02-2024 End: 09-03-2024 Refill Tremayne Gibson DO Work Phone: [facility] Comment on above: Refill Request Start: 08-15-2024 End: 08-15-2024 ambulatory No Pcp [facility] Start: 08-15-2024 End: 08-15-2024 Patient encounter procedure No Pcp [facility] Start: 08-04-2024 End: 08-04-2024 Refill Tremayne Gibson DO Work Phone: [facility] Comment on above: Refill Request Start: 05-29-2024 End: 05-29-2024 ambulatory TREMAYNE GIBSON Facility:[facility] Start: 05-29-2024 End: 05-29-2024 Office outpatient visit 10 minutes Tremayne Gibson DO Work Phone: Neurology Comment on above: PD (Parkinson's dise ase) ([facility]) (Primary Dx); Sialorrhea; RBD (REM behavioral disorder) Start: 05-03-2024 End: 05-03-2024 Orders Only Mari Narayan DO Work Phone: Neurology Comment on above: PD (Parkinson's dise ase) ([facility]) Start: 01-30-2024 Refill Tremayne florentino DO Work Phone: [facility] Comment on above: Refill Request Start: 11-15-2023 End: 11-15-2023 Office outpatient visit 15 minutes Tremayne Gibson DO Work Phone: Neurology Comment on above: PD (Parkinson's dise ase) (HCC) (Primary Dx); Sialorrhea; RBD (REM behavioral disorder) Start: 08-16-2023 End: 08-16-2023 ambulatory Taras Woodruff Other [employer] Other Start: 08-16-2023 Office outpatient vi sit 15 minutes Taras Kacy [facility] Start: 08-10-2023 End: 08-10-2023 ambulatory Taras Woodruff Other [employer] Other Start: 08-10-2023 Office outpatient vi sit 15 minutes Taras Kacy [facility] Start: 05-10-2023 End: 05-10-2023 Office outpatient visit 15 minutes Tremayne Gibson DO Work Phone: Neurology Comment on above: PD (Parkinson's dise ase) Start: 04-06-2023 Telephone encounter Tremayne fox DO Work Phone: Neurology Comment on above: Forms Start: 03-13-2023 End: 03-13-2023 ambulatory Taras Kacy Other [employer] Other Start: 03-13-2023 Office outpatient vi sit 25 minutes Taras Kacy [facility] Start: 11-22-2022 ambulatory Tremayne florentino DO Work Phone: Neurology Comment on above: neuropathy analysis Start: 10-09-2022 End: 10-09-2022 ambulatory Taras Kcay Other [employer] Other Start: 10-09-2022 Telephone encounter Taras Woodruff [facility] Start: 10-08-2022 Encounter for genera l adult medical examination without abnormal findings DR TARAS WOODRUFF [facility] Start: 10-03-2022 End: 10-04-[address] TARAS WOODRUFF Facility:[facility] Start: 10-03-2022 End: 10-04-2022 Encounter for general adult medical examination without abnormal findings DR TARAS WOODRUFF Facility:[facility] Start: 10-03-2022 Periodic preventive med est patient 40-64yrs Taras Woodruff [facility] Start: 09-19-2022 End: 09-19-2022 ambulatory Tabby Lindo Other [employer] Other Start: 09-19-2022 Office outpatient ne w [...] Start: 12-01-2021 End: 12-01-2021 ambulatory Janice Leon [facility] Speech Therapy Comment on above: Hypokinetic Parkinso nian dysphonia (HCC) (Primary Dx); 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); Pharyngeal dysphagia; PD (Parkinson's disease) (HCC) Start: 11-07-2021 Telephone encounter Tremayne fox DO Work Phone: [facility] Comment on above: Results (MBS) Start: 11-03-2021 End: 11-03-2021 ambulatory Janice Leon CCC-MEDICAL HISTORIAN [facility] Speech Therapy Comment on above: Hypokinetic Parkinso nian dysphonia (HCC) (Primary Dx); 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); Pharyngeal dysphagia; PD (Parkinson's disease) (HCC) Start: 11-01-2021 End: 11-02-[address] DOCTOR REED Facility: Start: 01-11-2021 Adult health examination William Woodruff Other [employer] Other Procedures Date Procedure Procedure Detail Performing Clinician Start: 03-13-2025 Quick Strep (POC) William Woodruff DO Work Phone: Start: 12-23-2024 Ultrasonography guid ed transrectal cryoablation of prostate Cole NASH Comment on above: TRUS/bx Start: 10-03-2022 End: 10-03-[address] TARAS WOODRUFF Comment on above: Performed By: #### P [facility] #### [facility] [address] [place] [address] Dr. Rosalio Burks Start: 12-26-2021 Adult depression scr eening assessment Tremayne Gibson DO Work Phone: Start: 12-08-2020 Inguinal herniorrhaphy Cole NASH Comment on above: Right Inguinal Herni orrhaphy using mesh Start: 08-06-2008 Cardiac pacemaker, d evice (physical object) Cole NASH Start: 08-06-2008 History of tonsillectomy Colecharbel NASH Depression screening Byron Woodruff Other Screening [...] DISCUSSION [facility] Start: 07-16-2025 End: 07-16-2025 Patient encounter procedure 07/16/2025 4:30 PM EST Office Visit Neurology [address] [place] [address] Tremayne Gibson, DO [address] [place] [address] Return in about 6 months (around 07/10/2025). Neurology Comment on above: Return in about 6 mo nths (around 07/10/2025). Start: 05-26-2025 End: 05-26-2025 Patient encounter procedure 05/26/2025 3:30 PM EDT Office Visit Radiation Oncology [address] [place] [address] Adama Martínez MD [address] [place] [address] Follow up Radiation Oncology Comment on above: Follow up Start: 05-14-2025 End: 05-14-2025 Patient encounter procedure 05/14/2025 8:00 AM EDT Appointment Radiology [facility] [address] [place] [address] Comment on above: Post Seed CT Start: 05-07-2025 End: 05-07-2025 Patient encounter procedure 05/07/2025 2:30 PM EDT Office Visit Radiation Oncology [address] [place] [address] Adama Martínez MD [address] [place] [address] Follow up Radiation Oncology Comment on above: Follow up Start: 04-16-2025 End: 04-16-2025 Patient encounter procedure 04/16/2025 8:00 AM EDT Office Visit Radiation Oncology [address] [facility] [place] [address] Adama Martínez MD [address] [place] [address] Seed Implant at [facility] Radiation Oncology Comment on above: Seed Implant at [facility] Start: 04-15-2025 End: 04-15-2025 Patient encounter procedure 04/15/2025 10:45 AM EDT Office Visit Radiation Oncology [address] [facility] [place] [address] Adama Martínez MD [address] [place] [place] [address] Follow up / Seed implant Radiation Oncology [...] Radiation Oncology [address] [place] [address] Adama Martínez MD [address] [place] [place] [address] Follow up/ Seed implant Radiation Oncology Comment on above: Follow up/ Seed impl ant Start: 03-05-2025 End: 03-05-2025 Patient encounter procedure 03/05/2025 8:00 AM EDT Office Visit Radiation Oncology [address] [place] [address] Adama Martínez MD [address] [place] [address] Seed Implant at [facility] Radiation Oncology Comment on above: Seed Implant at [facility] Start: 02-11-2025 End: 02-11-2025 Patient encounter procedure 02/11/2025 9:00 AM EDT Office Visit Radiation Oncology [address] [place] [address] Adama Martínez MD [address] [place] [address] Volume Study Radiation Oncology Comment on above: Volume Study Start: 01-08-2025 End: 01-08-2025 Patient encounter procedure 01/08/2025 3:30 PM EDT Office Visit Neurology [address] [place] [address] Tremayne Gibson, DO [address] [place] [address] PD FOLLOW UP Neurology Comment on above: PD FOLLOW UP Start: 08-06-2024 Advance Directive Discussion Advance Directive Discussion [facility] Start: 05-29-2024 End: 05-29-2024 Patient encounter procedure 05/29/2024 1:00 PM EDT Office Visit Neurology [address] [place] [address] Tremayne Gibson, DO [address] [place] [address] Return in about 6 months (around 05/16/2024). [...] [facility] Start: 04-06-2024 Influenza vaccination [facility] Start: 03-24-2024 Screening for malign ant neoplasm of colon [facility] Start: 04-06-2023 Covid-19 Vaccine ( season) Covid-19 Vaccine () [facility] Start: 04-06-2023 Influenza vaccination [facility] Start: 12-26-2022 Adult depression screening assessment DEPRESSION SCREENING [facility] Start: 08-06-2022 DEPRESSION ASSESSMENT DEPRESSION ASS ESSMENT [facility] Start: 04-06-2022 Influenza vaccination C [facility] Start: 08-06-2021 DEPRESSION ASSESSMENT DEPRESSION [...] Hospital Start: [address] COLONOGRAPHY [facility] Start: 2004 DIABETES SCREEN DIABETES SCREEN [facility] Start: 2004 Diabetes Screening Diabetes Screenin g [facility] Start: 2004 FECAL OCCULT BLOOD FECAL OCCULT BLOO D [facility] Start: 2004 Screening for malign ant neoplasm of colon [facility] Start: 2004 SIGMOIDOSCOPY [facility] Start: 1994 Lipid 1996 panel - S andriy or Plasma Lipid Screening [facility] Start: 1994 Lipid panel [facility] Screening [facility] Start: 1994 LIPID SCREEN LIPID SCREEN [facility] Start: 1978 Urine microalbumin profile [facility] Start: 1977 Anxiety Screening Anxiety Screening [facility] Start: 1977 Depression Screening Depression Scre ening [facility] Start: 1977 HEPATITIS C SCREENING HEPATITIS C [facility] Start: 1977 Hepatitis C screening Hepatitis C [facility] Start: 1977 HIV SCREENING HIV SCREENING [facility] Start: 1977 HIV screening HIV Screening [facility] Start: 1971 Adult depression screening assessment DEPRESSION [...] lic 2000 panel - Serum or Plasma [facility] Immunizations Immunization Date Immunization Notes Care Provider Fa cility NEGATED: Highlighted row has not occurred!11-26-2020 SARS-CoV-2 (COVID-19) mRNA-1273 vaccine Cole CHARITY [facility] [place] Payers Date Payer Category Payer Medicare [id number] 2025 Unknown [id number] 2024 Self-pay 2022 Private Health Insurance ad7 [id number] 2018 Unknown ALAINA JETT PPO [id number] 2018-Present [phone] [facility] [address] [place] [address] PPO [id number] 2018 Unknown [id number] 1959 Unknown [id number] 1959 Unknown [id number] 1959 Unknown [id number] [id number] 1959 Unknown [id number] [id number] 1959 Unknown [id number] [id number] 1959 Unknown [id number] 2.16.840.1.146464.3.579.2.7 1959 Unknown [id number] 2.16.840.1.524587.3.579.2.7 1959 Unknown [id number] 2.16.840.1.303500.3.579.2.7 1959 Unknown [id number] 2.16.840.1.862386.3.579.2.7 1959 Unknown [id number] 2.16.840.1.147937.3.579.2.7 1959 Unknown [id number] 2.16.840.1.224541.3.579.2.7 1959 Unknown [id number] 2.16.840.1.711096.3.579.2.7 1959 Unknown [id number] 2.16.840.1.403630.3.579.2.7 1959 Unknown [id number] 2.16.840.1.945794.3.579.2.7 27 Unknown [id number] [id number] 31 Unknown [id number] [id number] 31 Social History Date Type Detail Facility Tobacco smoking stat us DEIS Tobacco smoking consumption unknown [facility] Start: 1960 Sex Assigned At Not on file [facility] Start: 09-06-2021 End: 04-04-2022 Exposure to SARS-CoV-2 (event) Not sure [facility] Start: 09-08-2022 End: 05-18-2025 Tobacco smoking status DEIS Never smoked tobacco [facility] Start: 09-08-2022 Tobacco use and exposure Smoke less tobacco non-user [facility] Start: 09-08-2022 End: 01-15-2023 Sex Assigned At [facility] Start: 09-08-2022 End: 01-15-2023 History of Social function [facility] Start: 06-27-2021 Adult Depression Screening Assessment 0 [facility] Start: 10-01-2021 Sexual orientation Choose not to dis close [facility] Start: 04-14-2012 End: 10-06-2024 Sex Male (finding) [facility] Start: 1960 Sex Assigned At Male [facility] Sexual Orientation [facility] Start: 01-09-2025 Alcoholic beverage intake Ex-drinker (finding) [facility] Clinical Notes 08-06-2008 to 05-18-2025 Adama Martínez MD - 04/07/2025 12:00 AM Adama Broussard MD - 04/01/2025 8:51 AM Adama Broussard MD - 04/01/2025 12:00 AM EDT Note Date & Type Note Facility 05-18-2025 Hospital Discharg e instructions Patient Education 05/18/2025 10:19:50 Brachytherapy for Prostate Cancer, Care After Brachytherapy for Prostate Cancer, Care After The following information offers guidance on how to care for yourself after your procedure. Your health care provider may also give you more specific instructions. If you have problems or questions, contact your health care provider. What can I expect after the procedure? After the procedure, it is common to have: Urinary symptoms. These may include: ?Trouble urinating. ?Blood in the urine or semen. ?Frequent feeling of an urgent need to urinate. Constipation, nausea, or bloating and gas. Bruising, swelling, and tenderness of the area beneath the scrotum (perineum). Tiredness (fatigue). Burning or pain in the rectum. Problems getting or keeping an erection (erectile dysfunction). After the thin, flexible urinary tube (Arndt catheter)is removed, it is common to have: Burning when you urinate. This may last for up to 2 weeks after the catheter is removed. Trouble controlling when you urinate (incontinence). You may leak urine sometimes. Your ability to control when you urinate should improve as you heal. Follow these instructions at home: Eating and drinking Follow instructions from your health care provider about eating or drinking restrictions. Drink enough fluid to keep your urine pale yellow. Treatment area care Check your treatment area every day for signs of infection. Watch for: Redness, swelling, or pain. New drainage or blood. Some dried fluid or blood may be present. Warmth. Pus or a bad smell. Managing pain and swelling If directed, put ice on the affected area. To do this: ?Put ice in a plastic bag. ?Place a towel between your skin and the bag. ?Leave the ice on for 20 minutes at a time, 2 3 times a day. ?Be sure to remove the ice if your skin turns bright red. If you cannot feel pain, heat, or cold, you have a greater risk of damage to the area. Try not to sit directly on the perineum. A soft cushion can help with discomfort. Activity Do not lift anything that is heavier than 10 lb (4.5 kg), or the limit that you are told, until your health care provider says that it is safe. Rest as told by your health care provider. Return to your normal activities as told by your health care provider. Ask your health care provider what activities are safe for you. Most people can return to normal activities within a few days. If you were given a sedative during the procedure, it can affect you for several hours. Do not drive or operate machinery until your health care provider says that it is safe. Follow instructions from your health care provider about when it is safe for you to engage in sexual activity. Managing constipation Your procedure may cause constipation. To prevent or treat constipation, you may need to: Take nqep-npf-plvjrfx or prescription medicines. Eat foods that are high in fiber, such as beans, whole grains, and fresh fruits and vegetables. Limit foods that are high in fat and processed sugars, such as fried or sweet foods. General instructions Take vzyl-ixu-lkhytgq and prescription medicines only as told by your health care provider. Do not take baths, swim, or use a hot tub until your health care provider approves. You may take a shower and wash the perineum gently. Do not strain to have a bowel movement. Do not use any products that contain nicotine or tobacco. These products include cigarettes, chewing tobacco, and vaping devices, such as e-cigarettes. If you need help quitting, ask your health care provider. If you have permanent, low-dose brachytherapy implants: ?Limit close contact with children and women for 2 months or as told by your health care provider. This is important because of the active radiation in your prostate. ?You may set off radioactive sensors, such as at airport screenings. Ask your health care provider for a document that explains your treatment. ?You may be told to use a condom during sex for the first 2 months after low-dose brachytherapy. In rare cases, a seed can move and come out in semen. A condom keeps it from going into your partner. Keep all follow-up visits because you may need more treatment. Contact a health care provider if you: Have a fever or chills. Have any of these signs of infection in the treatment area: ?Redness, swelling, or pain that is new or gets worse. ?Fluid or blood. ?Warmth. ?Pus or a bad smell. Have no bowel movements for 3 4 days after the procedure. Have diarrhea for 3 4 days after the procedure. Develop any new symptoms, such as problems passing urine or erectile dysfunction. Have pain in your abdomen. Have more blood in your urine, have urine that is cloudy or smells bad, or have pain or burning when you urinate. Have swelling or pain in your legs. Get help right away if: You cannot urinate. You have a lot of bleeding from your rectum. You have unusual drainage coming from your rectum. You have pain in the treated area that does not go away with pain medicine or gets worse. You have severe nausea or vomiting. You have trouble breathing. Summary Talk with your health care provider about your risk of brachytherapy side effects, such as erectile dysfunction or urinary problems. If you have permanent, low-dose brachytherapy implants, limit close contact with children and women for 2 months or as told by your health care provider. You may be told to use a condom during sex for the first 2 months after low-dose brachytherapy. Keep all follow-up visits because you may need more treatment. This information is not intended to replace advice given to you by your health care provider. Make sure you discuss any questions you have with your health care provider. Document Revised: 10/19/2021 Document Reviewed: 10/19/2021 [employer] Patient Education 2023 [employer]. Follow Up Care 03/19/2025 15:12:32 With:CHARITY TAFOYA, Cole Contreras, SALO Address: [facility] [address] , [place] [address]- When: Unknown [facility] 05-18-2025 Note Patient Education Oncology Brachytherapy for Prostate Cancer, Care After The following information offers guidance on how to care for yourself after your procedure. Your health care provider may also give you more specific instructions. If you have problems or questions, contact your health care provider. What can I expect after the procedure? After the procedure, it is common to have: ??? Urinary symptoms. These may include: ? Trouble urinating. ? Blood in the urine or semen. ? Frequent feeling of an urgent need to urinate. ??? Constipation, nausea, or bloating and gas. ??? Bruising, swelling, and tenderness of the area beneath the scrotum (perineum). ??? Tiredness (fatigue). ??? Burning or pain in the rectum. ??? Problems getting or keeping an erection (erectile dysfunction). After the thin, flexible urinary tube (Arndt catheter)is removed, it is common to have: ??? Burning when you urinate. This may last for up to 2 weeks after the catheter is removed. ??? Trouble controlling when you urinate (incontinence). You may leak urine sometimes. Your ability to control when you urinate should improve as you heal. Follow these instructions at home: Eating and drinking ??? Follow instructions from your health care provider about eating or drinking restrictions. ??? Drink enough fluid to keep your urine pale yellow. Treatment area care Check your treatment area every day for signs of infection. Watch for: ??? Redness, swelling, or pain. ??? New drainage or blood. Some dried fluid or blood may be present. ??? Warmth. ??? Pus or a bad smell. Managing pain and swelling ??? If directed, put ice on the affected area. To do this: ? Put ice in a plastic bag. ? Place a towel between your skin and the bag. ? Leave the ice on for 20 minutes at a time, 2?3 times a day. ? Be sure to remove the ice if your skin turns bright red. If you cannot feel pain, heat, or cold, you have a greater risk of damage to the area. ??? Try not to sit directly on the perineum. A soft cushion can help with discomfort. Activity ??? Do not lift anything that is heavier than 10 lb (4.5 kg), or the limit that you are told, until your health care provider says that it is safe. ??? Rest as told by your health care provider. ??? Return to your normal activities as told by your health care provider. Ask your health care provider what activities are safe for you. Most people can return to normal activities within a few days. ??? If you were given a sedative during the procedure, it can affect you for several hours. Do not drive or operate machinery until your health care provider says that it is safe. ??? Follow instructions from your health care provider about when it is safe for you to engage in sexual activity. Managing constipation Your procedure may cause constipation. To prevent or treat constipation, you may need to: ??? Take exbn-eeg-wvllbgv or prescription medicines. ??? Eat foods that are high in fiber, such as beans, whole grains, and fresh fruits and vegetables. ??? Limit foods that are high in fat and processed sugars, such as fried or sweet foods. General instructions ??? Take jvil-cyl-tjccfgg and prescription medicines only as told by your health care provider. ??? Do not take baths, swim, or use a hot tub until your health care provider approves. You may take a shower and wash the perineum gently. ??? Do not strain to have a bowel movement. ??? Do not use any products that contain nicotine or tobacco. These products include cigarettes, chewing tobacco, and vaping devices, such as e-cigarettes. If you need help quitting, ask your health care provider. ??? If you have permanent, low-dose brachytherapy implants: ? Limit close contact with children and women for 2 months or as told by your health care provider. This is important because of the active radiation in your prostate. ? You may set off radioactive sensors, such as at airport screenings. Ask your health care provider for a document that explains your treatment. ? You may be told to use a condom during sex for the first 2 months after low-dose brachytherapy. In rare cases, a seed can move and come out in semen. A condom keeps it from going into your partner. ??? Keep all follow-up visits because you may need more treatment. Contact a health care provider if you: ??? Have a fever or chills. ??? Have any of these signs of infection in the treatment area: ? Redness, swelling, or pain that is new or gets worse. ? Fluid or blood. ? Warmth. ? Pus or a bad smell. ??? Have no bowel movements for 3?4 days after the procedure. ??? Have diarrhea for 3?4 days after the procedure. ??? Develop any new symptoms, such as problems passing urine or erectile dysfunction. ??? Have pain in your abdomen. ??? Have more blood in your urine, have urine that is cloudy or smells bad, or have pain o (more content not included)... [facility] 05-07-2025 Note HNO ID: [id number] Author: Adama MARTÍNEZ MD Service: ? Author Type: Physician Type: Progress Notes Filed: 05/14/2025 14:56 Note Text: Radiation Oncology - Follow Up Note PATIENT NAME: Cole Ramos PATIENT DIAGNOSIS: Prostate adenocarcinoma, initial PSA 4.2, biopsy Adleine score 3 + 3 = 6 (grade group 1), clinical stage T2a, N0, M0, stage I [cT1a-c/T2a, N0, M0, PSA <10, GG 1] (AJCC 8th ed.), s/p biopsy. NCCN Risk Group: Low Risk Group RADIATION SUMMARY: Prostate brachytherapy 04/16/25, I125, 145 Gy INTERVAL HISTORY: The patient presents for routine follow-up after recent prostate seed implant. He states he has been doing well. months after having last been seen. PSA HISTORY: No results found for: PSA , PSAPER ALLERGIES No Known Allergies carbidopa-levodopa (SINEMET) 25-100 mg per tablet Take 1 tablet by mouth four times daily. atorvastatin (LIPITOR) 80 mg tablet Take 80 mg by mouth once daily. (Patient taking differently: Take 80 mg by mouth once daily. Every other day) dilTIAZem CR (TIAZAC, TAZTIA XT) 120 mg 24 hr capsule Take 240 mg by mouth once daily. aspirin 325 mg tablet Take 325 mg by mouth once daily. REVIEW OF SYSTEMS: D/N = 4-01/04 Hematuria: none Dysuria: none Incontinence: none Urgency: mild Medications to aid urination: no Bowel movement frequency: 1/day Bowel movement quality: normal Blood per rectum: none PHYSICAL EXAM: BP 129/86 Pulse 77 Temp 37.1 ?C (98.7 ?F) Resp 16 Wt 88.7 kg (195 lb 8.8 oz) SpO2 97% BMI 23.19 kg/m? KPS: 100 General Appearance: Alert and oriented. No acute distress. Rectal deferred, Perineal area without ecchymosis tenderness or seroma. ASSESSMENT/PLAN: Prostate adenocarcinoma, initial PSA 4.2, biopsy Aurora score 3 + 3 = 6 (grade group 1), clinical stage T2a, N0, M0, stage I [cT1a-c/T2a, N0, M0, PSA <10, GG 1] (AJCC 8th ed.), s/p biopsy. NCCN Risk Group: Low Risk Group status post prostate brachytherapy 04/16/2025. Patient overall doing well with improving post-implant urinary issues. No other new problems. Plan to have patient back in 2 weeks for post-implant CT, return for follow-up exam in 4 weeks. He continues close follow-up with his urologist as well. cc: Taras Woodruff (Krissy) [facility] [place] [address] Dr. Nash [facility] 05-07-2025 Note HNO ID: [id number] Author: DEEPIKA MERINO RN Service: ? Author Type: Registered Nurse Type: Progress Notes Filed: 05/14/2025 14:56 Note Text: AUA= 10 [facility] 04-16-2025 Note HNO ID: [id number] Author: Adama MARTÍNEZ MD Service: ? Author Type: Physician Type: Progress Notes Filed: 04/22/2025 14:46 Note Text: Date: 04/16/2025 Facility: [facility] Procedure: prostate transperineal brachytherapy implant Sources: Iodine 125 Anesthesia:general Urologist: Dr. Nash This is an operative report supplement to Dr. Nash note. Prior the the implant patient underwent planning using transrectal ultrasound based. The planning including outline of prostate and planning margin around prostate to deliver 145 Gy using I-125 sources. It was determined 60 sources, for a total of 22.92 mCi was necessary using 17 needles. Prior to the procedure on the morning of the implant, patient identified by name and hospital ID bracelet. After anesthesia administered patient placed in dorsal-lithotomy position and ultrasound study done showing good correlation with planning images and excellent visualization of the gland. Implant was then carried out using transperineal technique with active ultrasound and fluoroscopic guidance. At the end of the case the treatment planning ultrasound computer showed captured seed located in expected position with appropriate target coverage, no extra seeds implanted. X-ray image showed good seed distribution and all 60 sources. Intraoperative dosimetry reviewed showing D90 of >90%, and excellent coverage of gland by the 100% IDL. After the cystoscopy physics performed survey with meter of patient, cystoscopy fluid, floor, trash, work table and general area. No excess activity seen, results documented. Terrence Martínez MD [facility] 04-07-2025 History of Presen t illness Narrative COLE RAMOS [id number] 04/07/2025 [facility] Department of Radiation Oncology [facility] RADIATION ONCOLOGY BRACHYTHERAPY TREATMENT PLANNING NOTE For [...] JOSIAH 2:34 PM documented in this encounter [facility] 04-07-2025 Note HNO ID: [id number] Author: Adama MARTÍNEZ MD Service: ? Author Type: Physician Type: Progress Notes Filed: 2025 12:34 Note Text: COLE RAMOS [id number] 04/07/2025 [facility] Department of Radiation Oncology [facility] RADIATION ONCOLOGY BRACHYTHERAPY TREATMENT PLANNING NOTE For [...] isodose distribution and DVH. Electronically Signed Viktor Marítnez M.D. / JOSIAH 512:34 PM [facility] 04-01-2025 Note HNO ID: [id number] Author: Adama MARTÍNEZ MD Service: ? Author [...] been communicated to the patient or surrogate. [facility] 04-01-2025 History of Presen t illness Narrative [...] patient or surrogate. documented in this encounter [facility] 04-01-2025 History of Presen t illness Narrative COLE RAMOS Juanita [id number] 04/01/2025 [facility] of Radiation Oncology [facility] RADIATION ONCOLOGY SIMULATION NOTE DATE OF SIMULATION: 04/01/2025 MACHINE: [employer] 500 Diagnosis: 185 (Prostate Gland) AREA:Prostate PATIENT POSITION: Supine CONTRAST: None PROTOCOL: None CONCURRENT THERAPY: None FIXATION DEVICE: UTS Stabilization device by [employer]. PROCEDURE: Patient was simulated in exaggerated dorsal lithotomy position. Serial images of the prostate were acquired using TRUS and reconstructed in 3D space. These images were imported into [employer] Prostate planning system where a plan was generated. ASSESSMENT/PLAN: Patient tolerated simulation procedure well. Electronically Signed Viktor Martínez M.D. / QUEENIE 2:45 PM documented in this encounter [facility] 04-01-2025 Note HNO ID: [id number] Author: Adama MARTÍNEZ MD Service: ? Author Type: Physician Type: Progress Notes Filed: 04/02/2025 12:45 Note Text: ELENI COLE S [id number] 04/01/2025 [facility] of Radiation Oncology [facility] RADIATION ONCOLOGY SIMULATION NOTE DATE OF SIMULATION: 04/01/2025 MACHINE: [employer] 500 Diagnosis: 185 (Prostate Gland) AREA:Prostate PATIENT POSITION: Supine CONTRAST: None PROTOCOL: None CONCURRENT THERAPY: None FIXATION DEVICE: UTS Stabilization device by [employer]. PROCEDURE: Patient was simulated in exaggerated dorsal lithotomy position. Serial images of the prostate were acquired using TRUS and reconstructed in 3D space. These images were imported into [employer] Prostate planning system where a plan was generated. ASSESSMENT/PLAN: Patient tolerated simulation procedure well. Electronically Signed Viktor Martínez M.D. / QUEENIE 512:45 PM [facility] 03-31-2025 Telephone encounter Note I called and spoke with Cole and reviewed his bowel prep instructions today for tomorrow's volume study. He denies questions at this time. He is aware to arrive at 8:45 tomorrow a.m. Deepika Merino RN [facility] 03-31-2025 Miscellaneous Notes I called and spoke with Cole and reviewed his bowel prep instructions today for tomorrow's volume study. He denies questions at this time. He is aware to arrive at 8:45 tomorrow a.m. Deepika Merino RN documented in this encounter [facility] 03-18-2025 Note Cardiovascular Medic [facility] SUBJECTIVE Chief Complaint Patient presents with [...] #Paroxysmal atrial fibrillation -Infrequent short asymptomatic episodes. -[id number] - 1 -Continue ASA 325mg daily and [...] cleared by thomas (more content not included)... [facility] 03-18-2025 Note Patient is here toda [...] exertion. Respiratory: Positive for shortness of breath. [facility] 03-13-2025 Evaluation note Diagnosis Onset Date Resolution Viral URI with cough acute Augu st 2024 10:48am Odynophagia noneactive March 19, 2025 10:30am Acute bronchitis due to other specified organisms noneactive March 19 10:30am [facility] Work Phone: [phone]) 406-798506-12-2025 Telephone encounter Note* Telephone Encounter - Jennifer Sal RN - 01/15/2025 3:33 PM EDT Call placed and LM for pt to confirm dates/times of VS and seed Implant. Requested pt CB to review and appts were mailed to pt. Jennifer Sal RN [facility]06-12-2025 Miscellaneous Notes* Telephone Encounter - Jennifer [...] you Jennifer Sal RN [facility] Telephone encounter Note * Telephone Encounter - Jennifer Sal RN - 01/15/2025 1:42 PM EDT Scheduling process started and LM for Simi at Dr Nash office to begin coordinating. We will contact pt once this has been scheduled. Jennifer Sal RN [facility]06-11-2025 Telephone encounter Note* Telephone Encounter - Jennifer Sal RN - 01/14/2025 11:46 AM EDT Patient called to let us know he has decided to proceed with brachytherapy for treatment. He spoke to Dr Nash office and they instructed him to call us to start the scheduling process. Dr Martínez- please advise. Are we ok to schedule this? Thank you Jennifer Sal RN [facility]06-09-2025 Telephone encounter Note* Telephone Encounter - Jennifer Sal RN - 01/12/2025 1:19 PM EDT Call received from NASH at [facility] Cardiology. PT is NOT pacemaker dependent. Jennifer Sal RN [facility]06-09-2025 Miscellaneous Notes* Telephone Encounter - Jennifer Sal RN - 01/12/2025 1:19 PM EDT Call received from NASH at [facility] Cardiology. PT is NOT pacemaker dependent. Jennifer Sal RN * Telephone Encounter - Deepika Merino RN - 01/09/2025 1:43 PM EDT I called and spoke to Meg at [phone], Dr. Santos's office, asking if Cole is pacemaker dependent. She is unsure but will call back asapwith an update. Deepika Merino RN [facility] Telephone encounter Note * Telephone Encounter - Deepika Merino RN - 01/09/2025 1:43 PM EDT I called and spoke to Meg at [phone], Dr. Santos's office, asking if Cole is pacemaker dependent. She is unsure but will call back asapwith an update. Deepika Merino RN [facility]06-06-2025 NoteHNO ID: [id number] Author: DEEPIKA MERINO RN Service: ? Author Type: Registered Nurse Type: Progress Notes Filed: 01/15/2025 12:19 Note Text: Pacemaker/Defibrillator?Yes -card copied Previous Cancer(s)? Basal cell -left neck-MOHS Previous Radiation? N Lupus/Scleroderma? N On body monitoring device? N AUA= 5 [facility] NoteHNO ID: [id number] Author: Adama MARTÍNEZ MD Service: ? Author [...] biopsies taken this area. Pathology revealed adenocarcinoma, Aurora 6 (3+3) from L4 L3 L2 and [...] Neurocardiogenic syncope Neurocardiogenic syncope PD (Parkinson's disease) (HCC) 12/2021 PAST SURGICAL HISTORY Procedure Laterality Date [...] about radiation approaches includin (more content not included)...[facility]06-06[facility] History of Present illness Narrative* [...] with prostate adenocarcinoma, initial PSA 4.2, biopsy Aurora score 3 +3 = 6 (grade group [...] Adama Martínez MD cc: Taras Woodruff ([facility]) [address] [place] [address] Cole Contreras [place] [address] documented in [facility] Instructions* Patient Instructions* Tremayne Gibson DO - 01/08/2025 4:10 PM EDT Medications 7A 10A 1P 4P Sinemet 25/100 1 1 1 1 a. Take Sinemet 30 minutes before meals or 60 minutes after meals. Avoid taking this medication with high protein meals. b. If nausea develops, try taking Sinemet with crackers or bread. c. If nausea still persists, please call [[phone]]. Avoid taking anti- nausea medications before speaking with us. Avoid Reglan, Compazine or Phenergan. documented in this [facility]25 NoteHNO ID: [id number] Author: TREMAYNE GIBSON DO Service: ? Author Type: Physician Type: Progress Notes Filed: 01/11/2025 15:46 Note Text: [facility] - FOLLOW UP EVALUATION Recording using General Specific software for draft documentation of the visit was discussed with the patient/authorized home furnishings sales representative; all questions welcomed and answered. Patient/authorized home furnishings sales representative agreed to proceed Taras Woodruff DO [address] [facility] [address] Dear Taras Woodruff DO: I had the [...] He recalls a previous swallow study at [facility] and participated in speech therapy [...] (BP Site: Left Ar (more content not included)...[facility]06-05-2025 History of Present illness Narrative* Tremayne Gibson, - 01/08/2025 3:48 PM EDT [facility] - FOLLOW UP EVALUATION Recording using General Specific software for draft documentation of the visit was discussed with the patient/authorized home furnishings sales representative; all questions welcomed and answered. Patient/authorized home furnishings sales representative agreed to proceed Taras Woodruff DO [address] [facility] [id number] Dear Taras Woodruff DO: I had the [...] He recalls a previous swallow study at [facility] and participated in speech therapy [...] or around: 07/10/25 Level of service : 04957 ( 30-39 min). Time spent 36 min on the day of service, which included preparing to see the patient, eoiw-we-btbv patient care, completing clinical documentation, obtaining and/or reviewing separately obtained history, performing a medically appropriate examination, counseling and educating the patient/family/caregiver, ordering medications, tests, or procedures, communicating results to the patient/family/caregiver, and care coordination (not separately reported). Tremayne Gibson DO Senior Staff Neurologist - [facility] documented in this encounter[facility] Hospital Discharge instructions Patient Education 01/05/2025 [...] under a microscope. This is called the Aurora score and the total score can range from 6 10, indicating how likely it is that the cancer will spread (metastasize) to other parts of the body. The higher the score, the greater thelikelihood that the cancer will spread. Aurora 6 or lower: This indicates that the cancer cells look similar to normal prostate cells (well differentiated). Aurora 7: This indicates that the cancer cells look somewhat similar to normal prostate cells (moderately differentiated). Aurora 8, 9, or 10: This indicates that [...] stress of having cancer. General instructions Take psiy-nep-ltdyovj and prescription medicines only as told by your health care provider. If you have to go to the hospital, notify your cancer specialist (oncologist). Keep all follow-up visits. This is important. Where to find more information [employer]: www.cancer.org [place] [employer]: www.cancer.net National Cancer Catarina: www.cancer.gov Contact a health care provider if: [...] provider. Document Revised: 10/19/2021 Document Reviewed: 10/19/2021 ReliOn Patient Education 2023 [employer]. Follow Up Care 12/11/2024 15:37:32 With:CHARITY TAFOYA, Cole Contreras, URL Address: [facility] [address] , [place] [address] [phone] When: Unknown Comments:referral to rad/onc [facility] [place] 06-02-2025 NotePatient Education Oncology Prostate Cancer The [...] under a microscope. This is called the Aurora score and the total score can range from 6?10, indicating how likely it is that the cancer will spread (metastasize) to other parts of the body. The higher the score, the greater thelikelihood that the cancer will spread. ??? Adeline 6 or lower: This indicates that the cancer cells look similar to normal prostate cells (well differentiated). ??? Aurora 7: This indicates that the cancer cells look somewhat similar to normal prostate cells (moderately differentiated). ??? Aurora 8, 9, or 10: This indicates that [...] needles, seeds, wires, o (more content not included)...[facility]04-21-2025 NoteUrology Office/Clinic Note Chief Complaint referral for elevated PSA HPI Staff GLAZIER [employer]URAL GLASS referral for elevated PSA from Dr. Woodruff. [...] URL [facility] [address], [place] [address] [phone] Additional Instructions: schedule prostate MRI and bx Patient Education Magnetic Resonance Imaging Transrectal Ultrasound-Guided Prostate Biopsy, Care After Transrectal Ultrasound-Guided Prostate Biopsy Prostate Cancer Screening Keisha Bond, personally scribed for Dr. Nash on 11/24/2024 09:40:34. . Documentation recorded by the jimboibKeisha jara, accurately reflects the services(s) I performed [...] No qualifying data Pro (more content not included)...[facility] on above: Result Comment: Electronically Signed By: Cole NASH MD\.br\Date and Time Signed: 11/24/24 09:42 EDT\.br\Electronically Co-Signed By: Keisha Moscoso\.br\Date and Time Co-Signed: 11/24/24 09:41 [id number] NotePatient Education Oncology Transrectal Ultrasound-Guided Prostate Biopsy, [...] near your rectum, especially while sitting. ??? Wakeeney-colored urine due to small amounts of blood in your urine. ??? A burning feeling while urinating. ??? Blood in your stool (feces) or bleeding from your rectum. ??? Blood in your semen. Follow these instructions at home: Medicines ??? Take emko-fpr-igoogpl and prescription medicines only as told by [...] provider. Document Revised: 01/16/2022 Document Reviewed: 01/16/2022 ReliOn Patient Education ? 2023 [employer]. Transrectal Ultrasound-Guided Prostate Biopsy A transrectal ultrasound-guided [...] including vitamins, herbs, eye drops, creams, and hvbp-rnm-ldcxnyt medicines. ??? Any problems you or family [...] medicines. This is especial (more content not included)...[facility]01-28-2025 Telephone encounter Note* Telephone Encounter - Darlene Cortes - 09/02/2024 11:03 AM EST Pt requesting refill as follows: Last FUV May 2024 with [facility] Pres[facility] Pending Prescriptions Disp Refills carbidopa-levodopa (SINEMET) 25-100 mg per tablet 120 tablet 11 Sig: Take 1 tablet by mouth four times daily. Upon approval, script will be sent electronically to the patient's pharmacy. Darlene Frias, Maintenance Mechanic Technician III [facility]01-28-2025 Miscellaneous Notes* Telephone Encounter - Darlene Cortes - 09/02/2024 11:03 AM EST Pt requesting refill as follows: Last FUV May 2024 [facility] Requested Prescriptions Pending Prescriptions Disp Refills carbidopa-levodopa (SINEMET) 25-100 mg per tablet 120 tablet 11 Sig: Take 1 tablet by mouth four times daily. Upon approval, script will be sent electronically to the patient's pharmacy. Darlene Frias, Maintenance Mechanic Technician III documented in this encounterBrecksville Va / [facility]01-28-2025 NoteUT Electrophysiology Consult Note Reason for [...] He recently went to Parkinson symposium at [facility]. He is handling his meds well. Device check 04/03/23 SR with normal parameters. 42% RA pacing and 23% RV pacing. Review of Systems Musculoskeletal: Positive for arthritis, back pain and myalgias. All other systems reviewed and are negative. [facility] neurology recently made a formal [...] by mouth in t (more content not included)...[facility]01-10-2025 NoteHNO ID: [id number] Author: ?, ?, ? Service: ? Author [...] directly to schedule Navigation Signature: Dee Dee Pantoja August 15, 2024 1:43 [facility] History of Present illness Narrative* Dee Dee Torres - 08/15/2024 1:36 PM EST POPULATION HEALTH NAVIGATION OUTREACH Action/FYI RP Patient [...] directly to schedule Navigation Signature: Dee Dee Pantoja August 15, 2024 1:43 PM documented in this encounterBrecksville [facility]01-10-2025 NotePatient Outreach ([facility]) RAMOSCOLE ([id number]) 1960 M Date Time Provider Department 08/15/24 NO PCP [facility] During your visit today, we recorded the following information about you: Yumiko Pantoja, Dee Dee Cortes 08/15/2024 1:45 PM Signed POPULATION HEALTH NAVIGATION OUTREACH Action/FYI RP Patient Outreach - Left message with spouse for patient to call back to schedule Provider ordered Follow up in Neurology. (Please see [employer] order dated for (05/29/2024). Any agent can assist with scheduling. Reason for Outreach Care Gap/HCC or Scheduling Wellness Visits Care Gaps due: Follow-up Appointment Patient Contacted: Spoke to patient/parent/or legal guardian Patient identified by name and : Yes Care Gap/HCC/Scheduling Wellness actions taken: Patient declined: Patient will contact office directly to schedule Navigation Signature: Dee Dee Machado Pss August 15, 2024 1:43 PM Allergies As [...] Parkinson's disease (H*10/18/2021 Encounter Status:Closed by YUMIKO PANTOJA DEE DEE CORTES on 08/15/24[facility]12-30-2024 Telephone encounter Note* Telephone Encounter - Martin Piedra - 08/04/2024 11:35 AM EST LAST APPT 05/29/24 [facility] Forwarding to covering physician Requested Prescriptions Pending Prescriptions Disp Refills carbidopa-levodopa (SINEMET) 25-100 mg per tablet 120 tablet 0 Sig: Take 1 tablet by mouth four times daily. [facility]12-30-2024 Miscellaneous Notes* Telephone Encounter - Martin Piedra - 08/04/2024 11:35 AM EST LAST APPT 05/29/24 [facility] Forwarding to covering physician Requested Prescriptions Pending Prescriptions Disp Refills carbidopa-levodopa (SINEMET) 25-100 mg per tablet 120 tablet 0 Sig: Take 1 tablet by mouth four times daily. documented in this encounterBrecksville [facility]10-24-2024 NoteHNO ID: [id number] Author: TREMAYNE GIBSON DO Service: ? Author Type: Physician Type: Progress Notes Filed: 05/29/2024 13:39 Note Text: [facility] - FOLLOW UP EVALUATION Taras Woodruff DO [address] [facility] [address] Dear Taras Woodruff DO: I had the [...] are normal. Fund of (more content not included)...[facility]10-24-2024 History of Present illness Narrative* Tremayne Gibson DO - 05/29/2024 1:23 PM EDT [facility] - FOLLOW UP EVALUATION Taras Woodruff DO [address] [facility] [id number] Dear Taras Woodruff DO: I had the [...] Left pathological reflexes: Rashel's absent. Coordination Right: Tmcppa-nk-xrzh normal. Rapid alternating movement normal.Left: Oamcpn-to-yceq normal. Rapid alternating movement normal. Gait Casual [...] 1 1 1 Level of service : 47125 (10-19 min). Time spent 15 min on the day of service, which included preparing to see the patient, soqf-vh-dgjb patient care, completing clinical documentation, obtaining and/or [...] Sincerely, Tremayne Gibson DO documented in this encounterBrecksville [facility]09-28-2024 NoteHNO ID: [id number] Author: MARI ROSAS DO Service: ? Author Type: Physician Type: Progress Notes Filed: 05/03/2024 12:43 Note Text:[id number] History of Present illness Narrative* Mari Rosas DO - 05/03/2024 12:43 PM EDT documented in this encounterBrecksville [facility]09-28-2024 Telephone encounter Note * Telephone Encounter - Mari Rosas DO - 05/03/2024 12:41 PM EDT Patient called stating he was out of town and [facility] [place] Refillordered [facility]09-28-2024 Miscellaneous Notes* Telephone Encounter - Mari Rosas DO - 05/03/2024 12:41 PM EDT Patient called stating he was out of town and [facility] [place] Refillordered documented in this encounterBrecksville Va / [facility]06-26-2024 Telephone encounter Note * Telephone Encounter - Martin Piedra - 01/30/2024 10:46 AM EDT Last appt 11/15/23 [facility] Patient phones requesting refills as follows: Requested Prescriptions Pending Prescriptions Disp Refills carbidopa-levodopa (SINEMET) 25-100 mg per tablet 360 tablet 1 Sig: Take 1 tablet by mouth four times daily. [facility]06-26-2024 Miscellaneous Notes* Telephone Encounter - Martin Piedra - 01/30/2024 10:46 AM EDT Last appt 11/15/23 [facility] Patient phones requesting refills as follows: Requested Prescriptions Pending Prescriptions Disp Refills carbidopa-levodopa (SINEMET) 25-100 mg per tablet 360 tablet 1 Sig: Take 1 tablet by mouth four times daily. documented in this encounterBrecksville [facility]04-11-2024 Instructions* Patient Instructions* Tremayne Gibson DO [...] documented in this encounterBrecksville Va / [facility]04-11-2024 History of Present illness Narrative* Tremayne [...] BP Cuff Size: Regular Adult) Pulse 106 [id number]% General Medical Examination: General Description of Patient: [...] Left pathological reflexes: Rashel's absent. Coordination Right: Pnfamx-wh-rqsx normal. Rapid alternating movement normal.Left: Ackyef-mh-trdw normal. Rapid alternating movement normal. Gait Casual [...] addressed during this visit: Pd (parkinson's disease) ([facility]) (primary encounter diagnosis) Sialorrhea Rbd [...] counseling regarding preparing to see the patient, ocdx-ja-cnoz patient care, completing clinical documentation, obtaining and/or reviewing separately obtained history, performing a medically appropriate examination, counseling and educating the patient/family/caregiver, ordering medications, tests,or procedures, and communicating results to the patient/family/caregiver. I tried to answer all of the patient's questions and concerns during this visit. Tremayne Gisbon DO Senior Staff Neurologist - [facility] documented in this encounterBrecksville Va [facility]01-11-2024 Evaluation note* Encounter Date Diagnosis Assessment [...] G20) Weakens his ability to clear secretions [facility] Other 01-05-2024 Evaluation note* Encounter Date Diagnosis [...] elevation of HOB. Jose Brock since nonproductive [facility] Other 10-05-2023 History of Present illness Narrative* Tremayne Gibson, DO - 05/10/2023 11:20 AM EDT [facility] - FOLLOW UP EVALUATION Tremayne Gibson [address] [facility] [address] Cole Ramos is a 63 year old [...] Left pathological reflexes: Rashel's absent. Coordination Right: Cpydzq-gh-ylel normal. Rapid alternating movement normal.Left: Bpueeq-xl-lijb normal. Rapid alternating movement normal. Gait Casual [...] counseling regarding preparing to see the patient, sqdj-nn-nazs patient care, completing clinical documentation, obtaining and/or reviewing separately obtained history, performing a medically appropriate examination, counseling and educating the patient/family/caregiver, ordering medications, tests,or procedures, and communicating results to the patient/family/caregiver. I tried to answer all of the patient's questions and concerns during this visit. Tremayne Gibson DO Senior Staff Neurologist - [facility] * Abhishek Cotto [...] form by fax from PT Services in [place]. They are asking if the patient can [...] calories. Protien supplement recommended. Monitor for now. [facility] Other 03-06-2023 Evaluation note* Encounter Date Diagnosis Assessment Notes Treatment Notes Treatment Clinical Notes Oct, Parkinson's disease (ICD-10 - G20) [facility] Other 02-28-2023 Evaluation note* Encounter Date Diagnosis [...] f/u Neurology, scheduled to be seen at [facility] neuropathy clinic. Fall precautions., inspect feet daily for cuts and calluses. Sep, Paroxysmal atrial fibrillation (ICD-10 - I48.0) CHADS VASC=0 Denies episodes of tachycardia. f/u Cardiology Sep, Cardiac pacemaker (I CD-10 - Z95.0) PM checks q 6mo [facility] Other 02-14-2023 Evaluation note* Encounter Date Diagnosis [...] treatment plan. Patient left in stable condition. [facility] Other [id number] Instructions* Patient Instructions* Tremayne Gibson DO - 09/08/2022 8:40 AM EST Medications 6A 10A 245P Sinemet 25/100 1 1 1 documented in this encounterBrecksville Va [facility]02-03-2023 History of Present illness Narrative* Tremayne Gibson DO - 09/08/2022 8:18 AM EST [facility] - FOLLOW UP EVALUATION Tremayne Gibson [address] [facility] [address] Cole Ramos is a 62 year old [...] holds a paper. No falls are noted. [employer] was bought out and he is working on computer conversion through December 2022 - has to hold off on PT and MEDICAL HISTORIAN until then. There is a strong family [...] in Neurology OT/PT/Speech [place] [facility] [place] [facility] Physical Health T Score [...] Left pathological reflexes: Rashel's absent. Coordination Right: Gjiehm-tj-tdyy normal. Rapid alternating movement normal.Left: Jczciv-zh-kbwa normal. Rapid alternating movement normal. Gait Casual [...] the amplitude decrements starting after the 1st nanu-awk-vvanv sequence. Arm Movements Right 2-Mild. a) 3 [...] addressed during this visit: Pd (parkinson's disease) ([facility]) (primary encounter diagnosis) Neuropathy, peripheral, hereditary Plan: Continue Sinemet Encouraged exercise - ~150 minutes of strenuous exercise weekly is recommended Defer until 12/26; PT at [place] Defer until 12/26; genetic counseling for testing [...] counseling regarding preparing to see the patient, vgig-cc-flhk patient care, completing clinical documentation, obtaining and/or reviewing separately obtained history, performing a medically appropriate examination, counseling and educating the patient/family/caregiver, ordering medications, tests,or procedures, and communicating results to the patient/family/caregiver. I tried to answer all of the patient's questions and concerns during this visit. Tremayne Gibson DO Senior Staff Neurologist - [facility] documented in this encounterBrecksville Va / [...] week 1 1/2 1/2 Continue 1 1 a. Take Sinemet 30 minutes [...] - FOLLOW UP EVALUATION Tremayne Gibson [address] [facility] [address] Cole Ramos is a 61 year old male with a history of IPD (idiopathic Parkinson's disease). He is seen with his . Interval History Since Last Visit: The patient has been following through with the MEDICAL HISTORIAN exercises on his drive to work. He notes mild depression. He has been using the treadmill. The short-term memory issues are still an issue. He notes continuing cognitive issues. The PT has been helpful - he notes more ssmzu-zr-gviasn. No falls arereported. The patient denies any [...] visit: PROMIS-10 OT/PT/Speech [place] [facility] [facility] Global Physical Health T Score [...] Left pathological reflexes: Rashel's absent. Coordination Right: Dzrzbr-pp-aptl normal. Rapid alternating movement normal. Left: Rmswxh-up-qpgy normal. Rapid alternating movement normal. Gait Casual [...] the amplitude decrements starting after the 1st rryo-kni-rpicr sequence. Arm Movements Right 2-Mild. a) 3 [...] addressed during this visit: Pd (parkinson's disease) ([facility]) (primary encounter diagnosis) Plan: 1. [...] counseling regarding preparing to see the patient, yxwg-cp-efon patient care, completing clinical documentation, obtaining and/or reviewing separately obtained history, performing a medically appropriate examination, counseling and educating the patient/family/caregiver, ordering medications, tests,or procedures and communicating results to the patient/family/caregiver. I tried to answer all of the patient's questions and concerns during this visit. Tremayne Gibson, Senior Staff Neurologist - [facility] documented in this encounterBrecksville [facility]04-28-2022 History of Present illness Narrative* Janice Leon, [facility]-MEDICAL HISTORIAN - 12/01/2021 8:55 AM EDT Episode Visit Count: 5 Therapist That Will Oversee The Plan Of Care: Janice Leon Start of Care Date: 10/13/21 Onset Date: 10/06/21 Plan of Care Certification Date: 10/13/21 Next Certification Due Date: 12/12/21 Patient Identified by Name and Date of : Yes [facility] SPEECH THERAPY [...] upright 90 degrees for all PO;Small Bite/Sip MEDICAL HISTORIAN Recommendations: Outpatient Speech Therapy Results and Recommendations Discussed With: Patient Planned Interventions, Frequency, and Duration: Planned Treatment Interventions: Cognitive-Linguistic Training (34963, 52973, 15705);Dysphagia Reduction Training (72212);Expressive Language Training (64762, 19125);Voice Training (84523) Current Frequency: 1x/week Duration: 4 weeks PLAN [...] reps each Laryngeal elevation/adduction exercises: 10 reps MEDICAL HISTORIAN administered DEEP PHARYNGEAL NEUROMUSCULAR STIMULATION to CN [...] 70.2 Sentences: 67.9 TREATMENT: Swallow / Dysphagia (36168): Skilled Intervention: Demonstrated, instructed, modeled and provided educational handout(s) for hyolaryngeal elevation and excursion manuevers and lingual ROM, lingual base ROM, pharyngeal ROM., Provided both written and video instruction for home exercise program to facilitate follow through with proper performance. , Provided neuromuscular reeducation of swallowing reflex via DPNS Speech/Language Therapy (00735): Skilled Intervention: Educated and instructed patient on [...] per 5 word sentences Billing: Speech Treatment (68807) and Dysphagia Treatment (02676) Total time / Length of visit: 60 minutes Janice Leon CCC-MEDICAL HISTORIAN documented in this encounterBrecksville Va [facility]04-07-2022 Miscellaneous Notes* Addendum Note - Hero Cuellar, PT - 11/10/2021 9:37 AM EDT Addended by: HERO CUELLAR on: 11/10/2021 09:37 AM Modules accepted: Orders documented in this encounterBrecksville Va [facility]04-07-2022 History of Present illness Narrative* LANEY ParkMEDICAL HISTORIAN - 11/10/2021 9:04 AM EDT Episode Visit Count: 4 Therapist That Will Oversee The Plan Of Care: Janice Leon Start of Care Date: 10/13/21 Onset Date: 10/06/21 Plan of Care Certification Date: 10/13/21 Next Certification Due Date: 12/12/21 Patient Identified by Name and Date of : Yes [facility] SPEECH THERAPY [...] upright 90 degrees for all PO;Small Bite/Sip MEDICAL HISTORIAN Recommendations: Outpatient Speech Therapy Results and Recommendations Discussed With: Patient Planned Interventions, Frequency, and Duration: Planned Treatment Interventions: Cognitive-Linguistic Training (79168, 86837, 93771);Expressive Language Training (83950, 21555);Voice Training (78230);Dysphagia Reduction Training (82567) Current Frequency: 1x/week Duration: 4 weeks PLAN [...] 5 reps Pharyngeal ROM exercises: 10 reps MEDICAL HISTORIAN administered DEEP PHARYNGEAL NEUROMUSCULAR STIMULATION to CN V-XII sites with iced lemon glycerine swabs x 18. Patient demonstrated mild-strong gag response x 15, moderate to max lingual curling,moderate to max palatal lift and swallow reflexes of 2-3 seconds. TREATMENT: Swallow / Dysphagia (99694): Skilled Intervention: Demonstrated, instructed, modeled and provided [...] of swallowing reflex via DPNS. Speech/Language Therapy (40863): Skilled Intervention: Educated and instructed patient on compensatory strategies for vocal intensity, working memory, informtion processing Educated and instructed patient on memory recall strategies such as grouping. Provided verbal cues in vocal intensity. Provided and instructed patient per home exercise program. Current Home Program: facial/lingual/lingual base/laryngeal/pharyngeal exercises, working memory per 5 word sentences, memory using grouping, abstract categorical naming Billing: Speech Treatment (55081) and Dysphagia Treatment (57415) Total time / Length of visit: 75 minutes Janice Leon CCC-MEDICAL HISTORIAN documented in this encounterBrecksville Va / Crille [...] Patient to be seen for Therapeutic exercise (91731);Neuromuscular re-education (75951);Manual therapy (00652);Therapeutic activities (83187);Self-chcf management (44623);Gait Training (78733);Patient/Family/Caregiver Education;Functional training PLAN FOR NEXT VISIT: Return in 6 months to reperform outcome measures SUBJECTIVE: Patient Reason for Visit: Pt had a bout of headache and feeling off balance. Plans to discuss with type caster. Pt will be working with Dr. Galan [...] Gait belt utilized during session for safety. Self-Detention Management: 1: Reviewed PD aerobic exercise intensity [...] 60 Hero Cuellar PT documented in this encounterBrecksville Va [facility]04-04-2022 Miscellaneous Notes* Telephone Encounter - Darlene Salazar - 11/07/2021 1:09 PM EDT MBS results received via fax and available to view in scanned documents. documented in this encounterBrecksville Va / [facility]03-31-2022 History of Present illness Narrative* Janice Leon CCC-MEDICAL HISTORIAN - 11/03/2021 11:11 AM EDT Episode Visit Count: 3 Therapist That Will Oversee The Plan Of Care: Janice Leon Start of Care Date: 10/13/21 Onset Date: 10/06/21 Plan of Care Certification Date: 10/13/21 Next Certification Due Date: 12/12/21 Patient Identified by Name and Date of : Yes [facility] SPEECH THERAPY [...] 69.4 dB SPL TREATMENT: Swallow / Dysphagia (83294): Skilled Intervention: Provided education related to a [...] follow through with proper performance. Speech/Language Therapy (49558): Skilled Intervention: Educated and instructed patient on compensatory strategies for vocal intensity Provided verbal cues in vocal intensity. Provided and instructed patient per home exercise program. Current Home Program: facial/lingual/laryngeal elevation/adduction, lingual base, Billing: Treatment of Swallow Dysfunction (09382) Speech Treatment (43541) Total time / Length of visit: 45 minutes Janice Leon CCC-MEDICAL HISTORIAN documented in this encounterBrecksville Va [facility]01-01-2009 History general Narrative - Reported* Type [...] August 2008 Hospitalization History SEE SURGICAL HX [facility] Future Appointments Appointment Date:05/18/2025 09:30:00 AM Scheduled Provider:Cole NASH MD Location:[facility] Appointment Type:URO Office Visit [facility] evaluation + Plan note Future Appointments Appointment Date:08/24/2025 11:30:00 AM Scheduled Provider: Location:[facility] Appointment Type:URO Nurse Visit Appointment Date:08/31/2025 12:15:00 PM Scheduled Provider:Cole NASH MD Location:[facility] [facility] Appointment Type:URO Office Visit [facility] evaluation note* 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) Unspecified persistent mental disorders due to conditions classified elsewhere Pharyngeal dysphagia Dysphagia, pharyngeal phase PD (Parkinson's disease) (HCC) Paralysis agitans [facility] Abnormality of gait- Primary PD [...] [facility] Diagnosis PD (Parkinson's disease) (HCC)- Primary Paralysis agitans [facility] Diagnosis PD (Parkinson's disease) (HCC)- Primary Paralysis agitans Neuropathy, peripheral, hereditary Hereditary peripheral neuropathy [facility] Diagnosis PD (Parkinson's disease) (HCC)- Primary Paralysis agitans [facility] Diagnosis PD (Parkinson's disease) Paralysis agitans [facility] Diagnosis PD (Parkinson's disease) (HCC)- Primary Paralysis agitans Sialorrhea Disturbance of salivary secretion 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 [facility] Diagnosis PD (Parkinson's disease) (HCC) Paralysis agitans [facility] Diagnosis PD (Parkinson's disease) (HCC) Paralysis agitans [facility] Diagnosis PD (Parkinson's disease) (HCC)- Primary Paralysis agitans Sialorrhea Disturbance of salivary secretion 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 [facility] Diagnosis PD (Parkinson's disease) (HCC) Paralysis agitans [facility] Diagnosis PD (Parkinson's disease) (HCC) Paralysis agitans [facility] Diagnosis Onset Date Resolution Status Admit Date Ascending aortic aneurysm acute October 06, 2024 9:20am Chronic kidney disease acute Ma rch 2024 9:20am Hypercholesterolemia acute Carlos h 2024 9:20am Parkinson's disease acute October 06, 2024 9:20am Paroxysmal atrial fibrillation acute October 06, 2024 9:20am Screening PSA (prostate spec ific antigen) acute October 06, 2024 9:20am Symptomatic bradycardia acute M arch 2024 9:20am Wellness examination noneactive Carlos h 2024 9:20am [facility] Work Phone: Evaluation note* Diagnosis Parkinson's disease without dyskinesia or fluctuating manifestations (HCC)- Primary Slow transit constipation Dysphagia, unspecified type documented in this encounter [facility] note* Diagnosis Malignant neoplasm of prostate (HCC)- Primary Malignant neoplasm of prostate documented in this encounter [facility] noteNo assessment [facility] Work Phone: Evaluation note* Diagnosis Onset Date Resolution Status Admit Date Sore throat noneactive March 13 10:48am [facility] Work Phone: Evaluation note* Diagnosis Malignant neoplasm of prostate (HCC)- Primary Malignant neoplasm of prostate [facility] Narrative No data available for this section [facility] Hospital Discharge instructions No data available for this section [facility] progress note No data available for this section [facility] reason for referral (narrative)No reason for referral [facility]: Reason for Referral Specialty Diagnoses / Procedures Referred By Contac t Referred To Contact [facility] Diagnoses Abnormality of gait PD (Parkinson's disease) (HCC) Procedures PT REHAB FOLLOW UP ORDER THERAPEUTIC EXERCISES RE, EA 15 MIN. 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) Pharyngeal dysphagia PD (Parkinson's disease) (HCC) Procedures SPEECH REHAB FOLLOW UP ORDER TX SPEECH LANG VOICE COMMJ &/AUDITORY PROC IND Tremayne Gibson DO [address] [place] [address] [address] Referral ID Status Reason Start Date Expiration Date V isits Requested Visits Authorized [id number] Closed PCP Requested Referral Auto-Generated Referral 12/01/2021 03/01/2022 1 1 Specialty Diagnoses / Procedures Referred By Contac t Referred To Contact Diagnoses PD (Parkinson's disease) ([facility]) Procedures PROVIDER ORDERED FOLLOW UP OFFICE/OUTPATIENT NEW HIGH MDM 60-74 MINUTES Tremayne Gibson DO [address] [place] [address] Referral ID Status Reason Start Date Expiration Date V isits Requested Visits Authorized [id number] Authorized 07/01/2022 09/29/2022 1 1 Referral ID Status Reason Start Date Expiration Date V isits Requested Visits Authorized [id number] Authorized 03/08/2023 06/06/2023 1 1 Specialty Diagnoses / Procedures Referred By Contac t Referred To Contact [facility] Diagnoses PD (Parkinson's disease) (HCC) Procedures CONSULT TO PHYSICAL THERAPY PHYSICAL THERAPY EVALUATION HIGH COMPLEX 45 MINS Tremayne Gibson DO [address] [place] [address] [address] Referral ID Status Reason Start Date Expiration Date Visits Requested Visits Authorized [id number] Pending Review Auto-Generat ed Referral 12/15/2022 11/23/2023 1 1 Specialty Diagnoses / Procedures Referred By Lyubov marks Referred To Contact Diagnoses PD (Parkinson's disease) (HCC) Sialorrhea RBD (REM behavioral disorder) Procedures PROVIDER ORDERED FOLLOW UP OFFICE/OUTPATIENT NEW HIGH MDM 60 MINUTES Tremayne Gibson T, DO [address] [place] [address] Referral ID Status Reason Start Date Expiration Date V isits Requested Visits Authorized [id number] Authorized 05/16/2024 08/14/2024 1 1 Specialty Diagnoses / Procedures Referred By Lyubov marks Referred To Contact Diagnoses PD (Parkinson's disease) ([facility]) Procedures PROVIDER ORDERED FOLLOW UP OFFICE/OUTPATIENT NEW HIGH MDM 60 MINUTES Tremayne Gibson, DO [address] [place] [address] Referral ID Status Reason Start Date Expiration Date V isits Requested Visits Authorized [id number] Authorized 11/27/2024 02/25/2025 1 1 Summary Purpose [...] CAMPUS) Procedures CONSULT TO SPEECH THERAPY OFFICE/OUTPATIENT [facility] 60-74 MINUTES EVAL SPEECH SOUND PRODUCT LANGUAGE COMPREHENSION TX SPEECH LANG VOICE COMMJ &/AUDITORY PROC IND Tremayne Gibson, DO [address] [place] [address] [facility] [address] [place] [address] Referral ID Status Reason Start Date Expiration Date Visits Requested Visits Authorized [id number] Authorized Auto-Generat ed Referral 10/07/2021 08/05/2022 30 30 Reason Comments Speech Therapy Reason Comments Physical Therapy PT Progress Note Specialty Diagnoses / Procedures Referred By Lyubov marks Referred To Contact PHYSICAL THERAPY Diagnoses PD (Parkinson's disease) ([facility]) Procedures CONSULT TO PHYSICAL THERAPY PHYSICAL THERAPY EVALUATION HIGH COMPLEX 45 MINS THERAPEUTIC EXERCISES RE, EA 15 MIN. Tremayne Gibson, DO [address] [place] [address] [facility] [address] [place] [address] Referral ID Status Reason Start Date Expiration Date Visits Requested Visits Authorized [id number] Authorized Auto-Generat ed Referral 10/07/2021 08/05/2022 30 30 Reason Comments Speech Progress Note Specialty Diagnoses / Procedures Referred By Lyubov marks Referred To Contact SPEECH THERAPY Diagnoses PD (Parkinson's disease) ([facility]) Procedures CONSULT TO SPEECH THERAPY OFFICE/OUTPATIENT [facility] 60-74 MINUTES EVAL SPEECH SOUND PRODUCT LANGUAGE COMPREHENSION TX SPEECH LANG VOICE COMMJ &/AUDITORY PROC IND Tremayne Gibson, DO [address] [place] [address] [facility] [address] [place] [address] Reason Comments Results MBS Reason Comments Established Patient Tremor Tremors little worse Numbness in both feet mostly left Specialty Diagnoses / Procedures Referred By Lyubov marks Referred To Contact Diagnoses PD (Parkinson's disease) ([facility]) Procedures PROVIDER ORDERED FOLLOW UP OFFICE/OUTPATIENT NEW HIGH MDM 60-74 MINUTES Tremayne Gibson, DO [address] [place] [address] Referral ID Status Reason Start Date Expiration Date Visits Re quested Visits Authorized [id number] Closed 07/01/2022 09/29/2022 1 1 Reason Comments Forms Reason Comments Follow Up Specialty Diagnoses / Procedures Referred By Lyuobv marks Referred To Contact Diagnoses PD (Parkinson's disease) Procedures PROVIDER ORDERED FOLLOW UP OFFICE/OUTPATIENT NEW HIGH MDM 60-74 MINUTES Tremayne Gibson, DO [address] [place] [address] Referral ID Status Reason Start Date Expiration Date Visits Re quested Visits Authorized [id number] Closed 03/08/2023 06/06/2023 1 1 Reason Comments Follow Up Follow up on Vanessa ons Reason Onset Date Comments Refill Request 01/30/2024 Reason Comments Follow Up Parkinson's Disease Per patient statemen t, My type caster wants me to start Lipitor and I wanted to check with him prior to starting. Patient conts with P.T. and is going well. Specialty Diagnoses / Procedures Referred By Lyubov marks Referred To Contact Diagnoses PD (Parkinson's disease) ([facility]) Sialorrhea RBD (REM behavioral disorder) Procedures PROVIDER ORDERED FOLLOW UP OFFICE/OUTPATIENT NEW HIGH MDM 60 MINUTES Tremayne Gibson, DO [address] [place] [address] Referral ID Status Reason Start Date Expiration Date Visits Re quested Visits Authorized [id number] Closed 05/16/2024 08/14/2024 1 1 Reason Onset [...] CAMPUS) Procedures PROVIDER ORDERED FOLLOW UP OFFICE/OUTPATIENT [facility] 60 MINUTES Tremayne Gibson DO [address] [place] [address] Phone: tel: fax: Referral ID Status Reason Start Date Expiration Date Visits Re quested Visits Authorized [id number] Closed 11/27/2024 02/25/2025 1 1 Reason Comments [...] DATE CREATED AUTHOR AUTHOR'S ORGANIZ ATION 05/04/2024 [facility] DATE CREATED AUTHOR AUTHOR'S ORGANIZ ATION 02/22/2025 [facility] DATE CREATED AUTHOR AUTHOR'S ORGANIZ ATION 05/01/[address] [facility] DATE CREATED AUTHOR AUTHOR'S ORGANIZ ATION 05/16/2025 [facility] DATE CREATED AUTHOR AUTHOR'S ORGANIZ ATION 05/19/2025 [facility] Care Teams (unrecognized sec tion and content) Personnel Name: TARAS WOODRUFF DO Address: [address] [facility] [place], [place] [address] Telecom: Team Status: Active Member Role Status Dates [...] Provider Active Sta rt: November 13, 2024 [employer] Coordinator Relationship Specialty Start Date End Date Taras Woodruff DO [address] [place] [address] PCP - General Internal Medicine 05/29/24 [employer] Coordinator Relationship Specialty Start Date End Date Taras Woodruff DO [address] [place] [address] PCP - General Internal Medicine 05/29/24 [employer] Coordinator Relationship Specialty Start Date End Date Taras Woodruff DO [address] [place] [address] PCP - General Internal Medicine 05/29/24 [employer] Coordinator Relationship Specialty Start Date End Date Taras Woodruff DO [address] [place] [address] PCP - General Internal Medicine 05/29/24 Team Status: Inactive Member Role Status Dates Taras Woodruff DO Primary Care Provide r, Attending Provider Active Start: October 06, 2024 End: October 06, 2024 [employer] Coordinator Relationship Specialty Start Date End Date Taras Woodruff DO [address] [place] [address] PCP - General Internal Medicine 05/29/24 [employer] Coordinator Relationship Specialty Start Date End Date Taras Woodruff DO [address] [place] [address] PCP - General Internal Medicine 05/29/24 [employer] Coordinator Relationship Specialty Start Date End Date Taras Woodruff DO [address] [place] [address] PCP - General Internal Medicine 05/29/24 [employer] Coordinator Relationship Specialty Start Date End Date Taras Woodruff DO [address] [place] [address] PCP - General Internal Medicine 05/29/24 Team Status: Inactive Member Role Status Dates Taras Woodruff DO Primary Care Provider Active Start: March 19, 2025 End: March 19, 2025 Taras Woodruff DO Attending Provider Active Sta rt: March 19, 2025 End: March 19, 2025 [employer] Coordinator Relationship Specialty Start Date End Date Taras Woodruff DO [address] [place] [id number] PCP - General Internal Medicine 05/29/24 [employer] Coordinator Relationship Specialty Start Date End Date Taras Woodruff DO [address] [place] [address] PCP - General Internal Medicine 05/29/24 [employer] Coordinator Relationship Specialty Start Date End Date Taras Woodruff DO [address] [place] [id number] PCP - General Internal Medicine 05/29/24 Goals [...] BE BASED ON THE PRIMARY CLINICAL RECORDS. [facility] [employer] [facility]. provides no warranty or guarantee of the accuracy or completeness of information in this document.
--- NOTE | 2025-05-20 14:00 | CA_ITS ---
Patient Name: COLE KNOWLES MR#: [id number] : 1960 Exam Date: 05/20/2025 Ordering Doctor: AREN JONES CNP ECHOCARDIOGRAM REPORT PROCEDURE: CA ECHO DOPPLER COMPLETE INDICATIONS: Aortic dilatation, pacemaker COMPARISON: None. DESCRIPTION: COMPLETE ECHOCARDIOGRAM Real-time transthoracic echocardiography with 2D, M-mode, spectral and color flow Doppler performed. QUALITY: Technical quality was good. LEFT VENTRICLE: Normal chamber size. Mild concentric left ventricular hypertrophy. Normal systolic function. Estimated left ventricular ejection fraction is 60-65% LV EF: Normal left ventricular ejection fraction, (>55%). DIASTOLIC: Normal diastolic function. ATRIAL SEPTUM: Visually appears intact. LEFT ATRIUM: Normal chamber size. RIGHT ATRIUM: Mild dilatation. RIGHT VENTRICLE: Mild dilatation. Systolic function appears mildly reduced. Pacer wire present. TRICUSPID VALVE: Normal mobility and thickness. No stenosis with mild regurgitation. No evidence of pulmonary hypertension. RVSP 25 mmHg MITRAL VALVE: Normal mobility and thickness. No evidence of mitral valve stenosis. There is no mitral annular calcification. Mild mitral regurgitation. AORTIC VALVE: No visible sclerosis. Normal leaflet mobility. No evidence of aortic valve stenosis. Trivial aortic regurgitation. AORTIC ROOT: Mildly dilated Aortic root (4.3 cm) and moderately dilated ascending aorta (4.3 cm). Aortic arch is normal in size. PULMONIC VALVE: Normal thickness and mobility. No stenosis. Trivial regurgitation. PERICARDIUM: No evidence of pericardial effusion. IVC: Collapses with inspiration. IVC is normal in size. PLEURA: CONCLUSION: 1. Mild concentric left ventricular hypertrophy with normal systolic function. Estimated LVEF is 60 to 65%. 2. Mildly dilated right ventricle with mildly reduced systolic function. 3. Mild mitral and tricuspid regurgitation. 4. Mildly dilated Aortic root (4.3 cm) and moderately dilated ascending aorta (4.3 cm). 5. Normal right-sided pressures. Adult Echocardiography Procedure Report Left Ventricle LVEDD (3.7 - 5.6 cm): 3.94 cm LVESD (2.2 - 4.0 cm): 2.67 cm LVIVS thickness (0.6 - 1.2 cm): 1.17 cm LVPW thickness (0.5 - 1.0 cm): 1.19 cm e': 0.08 m/s E - e': 6.33 LVOT Max Gradient: 3.69 mm[Hg] LVOT Area (cm2): 0.96 m/s Peak Velocity (LVOT): 0.96 m/s Mean Velocity (LVOT): 0.64 m/s LVOT Diameter 2.34 cm Left Ventricular Ejection Fraction: 60-65 % Left Atrium LA Volume Index (2D A2C): 22.79 ml/m2 Left Atrium Systolic Dimension: 3.71 cm Mitral Valve MV E to A Ratio: 0.81 Mitral Valve A-Wave Peak Velocity: 0.64 m/s Mitral Valve E-Wave Peak Velocity: 0.52 m/s Right Ventricle Aorta AO Root Diam: 4.33 cm Aortic Valve AoV Area (Peak Umang): 5.04 cm2, 5.04 cm2 AoV Area (VTI): 4.91 cm2, 4.91 cm2 Peak Velocity(Antegrade Flow): 0.82 m/s Peak Gradient(Antegrade Flow): 2.70 mm[Hg] Mean Velocity(Antegrade Flow): 0.53 m/s Mean Gradient(Antegrade Flow): 1.28 mm[Hg] Velocity Time Integral: 17.16 cm Tricuspid Valve Peak Velocity (Regurgitant Flow): 2.33 m/s, 2.33 m/s Pulmonic Valve Peak Gradient: 2.19 mm[Hg], 2.10 mm[Hg] Right Atrium Right Atrium Systolic Pressure: 65.29 ml, 65.29 ml Dictated by: Ronnie Sun M.D. on 05/20/2025 at 18:30 Approved by: Ronnie Sun M.D. on 05/20/2025 at 18:36
== END 2025-05-20 13:51 | disposition home or self-care (01) ==
LOC: CARD 13:50
PROVIDERS: PCP Internal Medicine; Visit Provider Nurse Practitioner Family
DX: I77.819 Aortic ectasia, unspecified site (principal); I51.7 Cardiomegaly
CPT/HCPCS: 93306

== ENCOUNTER 2025-05-22 10:20 | Outpatient (OUT) | payer OTHER, SELFPAY ==
--- OUTSIDE RECORDS SUMMARY | 2025-05-22 10:26 | XMS_ITS | CCD ---
Author Organization [facility] CliniSypr Care Team Providers Care Rn Neurosurgical Name Role Phone Unavailable Primary Care Provider [...] Physician Taras Woodruff DO Primary Care Provider [phone] Taras Woodruff DO Attending Provider [phone] Cole Nash MD Attending Provider Tremayne Gibson DO Attending Provider [phone] Cole Nash Attending Unavailable Cole Nash Admitting Unavailable Taras Woodruff Primary Care Unavailable Tremayne Gibson Admitting Unavailable Tremayne Gibson Attending Unavailable Taras Woodruff DO Primary Care Provider [phone] Shabana Page APRN Attending Provider [phone] Taras Woodruff DO Attending Provider EYAL RAE [...] mg per tablet Indications: PD (Parkinson's disease) ([facility]) Take 1 tablet by mouth four times [...] Start: 08-10-2023 take 1 capsule by mo [facility] every eight hours Benzonatate [...] [place] Denied prostate MRI at [facility] due to pacemaker, was advised imaging could [...] [facility] [address], [place] [address]- Additional Instructions: 3-4 mos with PSA (from [...] Immunizations Vaccine (more content not included)... Normal [facility] Comment on above: Result Comment: Elec tronically Signed By: Cole NASH MD\.br\Date and Time Signed: 05/18/25 10:21 EDT\.br\Electronically Co-Signed By: Daxa Leung\.br\Date and Time Co-Signed: 05/18/25 10:20 EDT CNOVon 05-07-2025 CNOV Office Visit (RADTSA ) COLE RAMOS Juanita ([id number]) 1960 M Date Time Provider Department 05/07/25 [...] DIAGNOSIS: Prostate adenocarcinoma, initial PSA 4.2, biopsy [place] score 3 + 3 = 6 (grade [...] ASSESSMENT/PLAN: Prostate adenocarcinoma, initial PSA 4.2, biopsy [place] score 3 + 3 = 6 (grade [...] urologist as well. cc: Taras Woodruff (Krissy) [address] [place] [address] Dr. Nash Referring Provider: Adama MARTÍNEZ [[id number]] Allergies As of Date: 05/07/2025 (No Known Allergies) Date Reviewed: 05/07/2025 Reviewed by: Deepika Merino RN - Fully Assessed Reason for Visit: Prostate Cancer [590] Primary Visit Diagnosis:Malignant neoplasm of prostate (HCC) [C61] Order(s):PSA/PROSTATE SPECIFIC ANTIGEN SCREENING [SQPSAS1] Order #: [id number] FUTURE Prescriptions as of 05/14/2025 - carbidopa-levodopa [...] Encounter Status:Closed by Adama MARTÍNEZ on 05/14/25 [facility] Orders Onlyon 04-26-2025 Orders Only [id number] Jurgen Ramos 1960 M Date Provider Department Center 04/26/2025 Kaylie-EYAL RAE [facility] CARD [place] HeartVAS Family History Family Status - Relation Status Age at Mother Alive Father Normal [facility] CNOVon 04-16-2025 CNOV Office Visit (MARYTSA ) COLE RAMOS ([id number]) 1960 M Date Time Provider Department 04/16/25 8:00 AM Adama MARTÍNEZ During your visit today, we recorded the following information about you: Adama Martínez MD 04/22/2025 2:46 PM Signed Date: 04/16/2025 Facility: [facility] Procedure: prostate transperineal brachytherapy implant Sources: Iodine [...] activity seen, results documented. Terrence Martínez MD [facility] Referring Provider: Adama MARTÍNEZ [[id number]] Allergies As of Date: 04/16/2025 (No Known [...] Status:Closed by Adama MARTÍNEZ on 04/22/25 Normal [facility] CNOVon 04-01-2025 CNOV Office Visit (RADTSA ) COLE RAMOS ([id number]) 1960 M Date Time Provider Department 04/01/25 [...] patient or surrogate. 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 Encounter Status:Closed by Adama MARTÍNEZ on 04/08/25 [facility] 03-31-2025 [facility] Telephone (RADTSA) COLE RAMOS ([id number]) 1960 Date Time Provider Department 03/31/25 Adama MARTÍNEZ RADDecision PaceA During your visit today, we recorded the [...] Status:Closed by DEEPIKA MERINO on 03/31/25 Normal [facility] Office Visiton 03-18-2025 Follow-up visit [id number] Jurgen Ramos 1960 Date Provider Department Center 03/18/2025 166-AREN JON[facility] CARD Marsha Bateman Family History Family Status - Relation Status Age at Mother Alive Father Level of Service:03398 [place] OFFICE/OUTPATIENT ESTABLISHED MOD MDM 30 MIN Reason for Visit and Comments: Pre-op Exam [260257] Atrial Fibrillation [80] Normal [facility] No Panel InformationOrdered By: Shabana Page on 03-13-2025 Quick Strep (POC) [facility] CNPNon 02-09-2025 CNPN Telephone (RADTSA) COLE RAMOS ([id number]) 1960 M Date Time Provider Department 02/09/25 [...] Encounter Status:Closed by DEEPIKA MERINO on 03/13/25 [facility] Olivia 01-14-2025 CNPN Telephone (RADTSA) COLE RAMOS ([id number]) 1960 Date Time Provider Department 01/14/25 Adama [...] Status:Closed by JENNIFER SAL on 01/15/25 Normal [facility] 36on 01-12-2025 36 Bertha Posada MA P Cardiology Clinical Support Pool Caller: Unspecified (3 days ago, 1:41 PM) Previous Messages Patient Call (Newest Message First) View All Conversations on this Encounter Bertha Posada MA routed conversation to Cardiology Clinical Support Pool3 days ago Meg Wilkinson MA routed conversation to [facility] Cardiology Clinic Clinical Support Pool3 days ago Meg Wilkinson MA3 days ago Pili with [facility] would like to know if pt is pacemake dependent? Okay to leave message [phone] radiation nurses station. Spoke to [facility] advised them patient is not pacemaker dependent. Normal [facility] 36on 01-09-2025 36 Pili with [facility] would like to know if pt is pacemake dependent? Okay to leave message [phone] radiation nurses station. Normal [facility] CNOVon 01-09-2025 CNOV Office Visit (RADTSA ) COLE RAMOS ([id number]) 1960 M Date Time Provider Department 01/09/25 11:00 AM Adama AMRTÍNEZ During your visit today, we recorded the [...] Neurocardiogenic syncope Neurocardiogenic syncope PD (Parkinson's disease) ([facility]) 12/2021 PAST SURGICAL HISTORY Procedure Laterality Date [...] risk adenocarcino (more content not included)... Normal [facility] 01-09-2025 [facility] Telephone (RADTSA) COLE RAMOS ([id number]) 1960 M Date Time Provider Department 01/09/25 Adama MARTÍNEZ During your visit today, we recorded the following information about you: Deepika Merino RN 01/09/2025 1:44 PM Signed I called and spoke to Meg at [phone], Dr. Santos's office, asking if Cole is pacemaker dependent. She is unsure but will call back [facility] with an update. NATHAN Gonzales Angela, RN 01/12/2025 1:19 PM Signed Call received from NASH at [facility] Cardiology. PT is NOT pacemaker dependent. [...] Encounter Status:Closed by JENNIFER SAL on 01/20/25 [facility] CNOVon 01-08-2025 CNOV Office Visit (NRESAV ) COLE RAMOS ([id number]) 1960 M Date Time Provider Department 01/08/25 3:30 PM TREMAYNE GIBSON NRESAV During your visit today, we recorded the following information about you: Pulse Blood pressure 80/minute 110/78 GosTremayne sanchez DO 01/11/2025 3:46 PM Signed [facility] - FOLLOW UP EVALUATION Recording using ambient PT [employer] software for draft documentation of the visit was discussed with the patient/authorized community relations representative; all questions welcomed and answered. Patient/authorized community relations representative agreed to proceed Taras Woodruff DO [address] [facility] [address] Dear Taras Woodruff DO: I had the [...] He recalls a previous swallow study at [facility] and participated in speech therapy for 3-4 [...] CR (TIA (more content not included)... Normal [facility] Ambulatory Visit Summaryon 0 01-05-2025 Ambulatory [...] rad/onc Where: [facility] [address] [place] [address]- [phone] Someone Will Contact You Regarding These Appointments [facility] External Ambulatory Referral, Other [...] involve imagin (more content not included)... Normal [facility] Ambulatory Visit Summary Ambulatory Visit Summary COLE [...] Where: [facility] [address] [place] [address]- [phone] Someone Will Contact You Regarding These Appointments [facility] External Ambulatory Referral, Other [...] imagin (more content not included)... Normal [facility] Urology Office/Clinic Noteon 01-05-2025 Urology [...] [place] [employer] Denied prostate MRI at [facility] due to pacemaker ,was advised imaging could only be done on 1.5T vs 3T machine. TRUS/bx 12/23/24 - [place] 6 (3+3), GG1 x6/18 cores. Highest percent [...] [facility] [address], [place] [address]- [phone] Additional Instructions: referral to rad/onc Patient Education [...] Not Given (more content not included)... Normal [facility] Comment on above: Result Comment: Elec tronically Signed By: Cole NASH MD\.br\Date and Time Signed: 01/05/25 09:37 EDT\.br\Electronically Co-Signed By: Keisha Moscoso\.br\Date and Time Co-Signed: 01/05/25 09:35 EDT No Panel InformationOrdered By: Cole Nash on 12-23-2024 Miscellaneous Pathology Test See comment [facility] Comment on above: See report. Scanned copy available in EMR. Pathology Request for Lab Co rpon 12-23-2024 Pathology Request for Lab Deb Normal [facility] Comment on above: Order Comment: PROST ATE BX Result Comment: See report. Scanned copy available in EMR. PERFORMED BY: [facility] [place] [address] PATHOLOGIST [employer] REPA[employer]ER KARLA AGUILAR M.D. Performed By: #### P ATH TO [facility] #### [facility] [address] [id number] [facility] Ambulatory Visit Summaryon 0 11-24-2024 Ambulatory Visit [...] bx Where: [facility] [address] [place] [address]- [phone] Medications What How Much When Why Instructions New ciprofloxacin (Cipro 500 mg Tab) 1 Tablets By Mouth 2 times a day Elevated PSA Duration: 7 Days start 3 days prior to procedure Pickup at [facility]/pharmacy #[id number] Unchanged aspirin (aspirin 325 mg Oral EC [...] physician if questions or concerns Pharmacy Information [facility]/pharmacy #[id number]: [address] [place], [place] [id number] [phone] Allergies No Known Allergies Problems Ongoing - [...] including vitamins, herbs, eye drops, creams, and rpll-lyk-oijzmrx medicines. ??? Any surgeries you have had. [...] medicines given (more content not included)... Normal [facility] Ambulatory Visit Summary Ambulatory Visit Summary COLE [...] bx Where: [facility] [address] [place] [address] [phone] Medications What How Much When Instructions Unchanged [...] including vitamins, herbs, eye drops, creams, and aatk-afh-vvioplx medicines. ??? Any surgeries you have had. [...] tests during (more content not included)... Normal [facility] No Panel Informationon 11-13 Free Prostate Specific Antigen 0.51 ng/mL N/A [facility] Comment on above: Uma ECLIA methodol ogy. Prostate Specific Antigen Total 4.1 ng/mL Abnormal 0.0-4.0 [facility] Comment on above: Uma ECLIA methodol ogy.According to the [place] [employer], Serum PSAshould decrease and remain [...] PSA/Total PSA [Mass fraction] 12.4 % . [facility] Comment on above: The table below list [...] other population of men.Performed at: - [facility] [address] [place], [place] [id number] Director: Liam Galvan PhD, Phone: [phone] 36on 10-16-[address] Rae. You saw this patient in Aug 2024 and reduced cardizem down to 120mg from 240mg because his BP was 98/70 in the office. He just had echo done at [facility] and audio visual technician said he had an episode of HR in the 130's-140's. BP is 138 systolic. Can he go back up to cardizem 240mg daily? Per Dr. Rae : we need to see what the event is.. have a device check to see what rhythm issue it was Spoke with patient and Aldair from [employer]. We will do check in [facility] on 10/20/2024 at 10am. [facility] Office Visiton 09-02-2024 Follow-up visit [id number] Jurgen Ramos 1960 M Date Provider Department Center 09/02/2024 EYAL VILLARREAL [facility] No family history on file Level of Service:80285 [place] OFFICE/OUTPATIENT ESTABLISHED LOW MDM 20 MIN [facility] 36on 07-10-2024 36 Regarding labs from 06/24/2024: [...] lots of things going on for him. [facility] Orders Onlyon 07-02-2024 Orders Only [id number] Jurgen Ramos 1960 M Date Provider Department Center 07/02/2024 [id number] CARD [place] Heart[facility]AS No family history on file Normal [facility] CNOVon 05-29-2024 CNOV Office Visit (NRESAV ) COLE RAMOS ([id number]) 1960 M Date Time Provider Department 05/29/24 1:00 PM TREMAYNE GIBSON NRESAV During your visit today, we recorded the following information about you: Pulse Blood pressure 74/minute 141/85 Tremayne Gibson DO 05/29/2024 1:39 PM Signed [facility] - FOLLOW UP EVALUATION Taras Woodruff DO [address] [facility] [address] Dear Taras Woodruff DO: I had the [...] (more content not included)... Normal [facility] CNPNon [facility]-03[facility]20[facility]FV[facility] COLE RAMOS ([id number]) 1960 M Date Time Provider Department 05/03/24 MARI ROSAS FVPRAD During your visit today, we recorded the following information about you: Mari Rosas DO 05/03/2024 12:42 PM Signed Patient called stating he was out of town and needed 10 pills of Sinemet to [facility] in [place]. Refill ordered Allergies As of Date: 05/03/2024 (No Known Allergies) Date Reviewed: 11/15/2023 Reviewed by: Ana Hart LPN - Fully Assessed Visit Diagnosis:PD (Parkinson's disease) ([facility]) [G20.A1] Order(s):carbidopa-levo dopa (SINEMET) 25-100 mg per [...] peripheral neuropathy [G60.9] 10/06/2021 PD (Parkinson's disease) ([facility]) [G20.A1] 10/06/2021 Hypokinetic Parkinsonian dysphonia ([facility]) [G20.A*10/13/2021 Pharyngeal dysphagia [R13.13] 10/13/2021 Abnormality of [...] Encounter Status:Closed by MARI ROSAS on 05/03/24 [facility] CBC AUTO DIFFon 10-03-2022 BASO # 0.0 103/ul Normal 0.0-0.1 [facility] Comment on above: Performed By: #### C BC #### [facility] [address] [place], [place] [address] Dr. Rosalio Burks Basophils/100 WBC (Bld) 0.3 % Normal 0.2-2.0 [facility] Comment on above: Performed By: #### C BC #### [facility] [address] [place], [place] [address] Dr. Rosalio Burks EO # 0.1 103/ul Normal 0.0-0.7 [facility] Comment on above: Performed By: #### C BC #### [facility] [address] [place] [address] Dr. Rosalio Burks Eosinophils/100 WBC (Bld) 1.0 % Normal 0.9-7.0 [facility] Comment on above: Performed By: #### C BC #### [facility] [address] [place] [address] Dr. Rosalio Burks Erythrocyte distribution width (RBC) [Ratio] 11.7 % Normal 11.0-15.0 [facility] Comment on above: Performed By: #### C BC #### [facility] [address] [place] [address] Dr. Rosalio Burks Hematocrit (Bld) [Volume fraction] 43.2 % Normal 42.0-54.0 [facility] Comment on above: Performed By: #### C BC #### [facility] [address] [place] [address] Dr. Rosalio Burks Hemoglobin (Bld) [Mass/Vol] 15.0 g/dL Normal 14.0-18.0 [facility] Comment on above: Performed By: #### C BC #### [facility] [address] [place] [address] Dr. Rosalio Burks IG # 0.02 10e3/ul Normal 0.00-0.03 [facility] Comment on above: Performed By: #### C BC #### [facility] [address] [place] [address] Dr. Rosalio Burks IG % 0.3 % Normal 0.0-0.5 [facility] Comment on above: Performed By: #### C BC #### [facility] [address] [place] [address] Dr. Rosalio Burks LYMPH # 1.5 103/ul Normal 1.2-3.8 [facility] Comment on above: Performed By: #### C BC #### [facility] [address] [place] [address] Dr. Rosalio Burks Lymphocytes/100 WBC (Bld) 23.3 % Normal 20.5-60.0 [facility] Comment on above: Performed By: #### C BC #### [facility] [address] [place] [address] Dr. Rosalio Burks MANUAL DIFF REQ NO Normal [facility] Comment on above: Performed By: #### C BC #### [facility] [address] [place] [address] Dr. Rosalio Burks MCH (RBC) [Entitic mass] 31.9 pg Normal 25.9-34.0 [facility] Comment on above: Performed By: #### C BC #### [facility] [address] [place] [address] Dr. Rosalio Burks MCHC (RBC) [Mass/Vol] 34.7 g/dL Normal 29.9-35.2 [facility] Comment on above: Performed By: #### C BC #### [facility] [address] [place] [address] Dr. Rosalio Burks MCV (RBC) [Entitic vol] 91.9 fL Normal 80.0-94.0 [facility] Comment on above: Performed By: #### C BC #### [facility] [address] [place] [address] Dr. Rosalio Burks MONO # 0.6 103/ul Normal 0.3-0.8 [facility] Comment on above: Performed By: #### C BC #### [facility] [address] [place] [address] Dr. Rosalio Burks Monocytes/100 WBC (Bld) 10.1 % Normal 1.7-12.0 [facility] Comment on above: Performed By: #### C BC #### [facility] [address] [place] [address] Dr. Rosalio Burks NEUT # 4.0 103/ul Normal 1.4-6.5 [facility] Comment on above: Performed By: #### C BC #### [facility] [address] [place] [address] Dr. Rosalio Burks Neutrophils/100 WBC (Bld) 65.0 % Normal 43.0-75.0 [facility] Comment on above: Performed By: #### C BC #### [facility] [address] [place], [place] [address] Dr. Rosalio Burks Platelet mean volume (Bld) [Entitic vol] 10.3 fL Normal 9.5-13.5 [facility] Comment on above: Performed By: #### C BC #### [facility] [address] [place], [place] [address] Dr. Rosalio Burks PLT 268 103/ul Normal 150-450 [facility] Comment on above: Performed By: #### C BC #### [facility] [address] [address] [address] Rosalio Burks RBC 4.70 106/ul Normal 4.70-6.10 [facility] Comment on above: Performed By: #### C BC #### [facility] [address] [address] [address] Rosalio Burks WBC 6.2 103/ul Normal 4.0-11.0 [facility] Comment on above: Performed By: #### C BC #### [facility] [address] [address] [address] Rosalio Burks Complete Blood Count and Dif gerald 10-03-2022 Anisocytosis Ql (Bld) [facility] [employer] Other Basophilic stippling LM Ql (Bld) [facility] [employer] Other RBC morphology finding Nom (Bld) [facility] [employer] Other Complete Blood Count and Diff Cerephex [facility] [employer] Other Comprehensive Metabolic Pane laura 10-03-2022 Albumin [Mass/Vol] 3.900323 g/dL 3.4-5.0 g/dL [employer] Other Calcium [Mass/Vol] 9.1115469 mg/dL 8.5-10 .1 mg/dL [employer] Other CO2 [Moles/Vol] 30.75403522 mmol/L 21.0-3 2.0 mmol/L [employer] Other Creatinine [Mass/Vol] 1.84078595 mg/dL 0. 70-1.30 mg/dL [employer] Other Potassium [Moles/Vol] 4.22402018 mmol/L 3 .5-5.1 mmol/L [employer] Other Protein [Mass/Vol] 7.029883 g/dL 6.4-8.2 g/dL [employer] Other Urea nitrogen [Mass/Vol] 17.9993681 mg/dL 7.0-18.0 mg/dL [employer] Other Comprehensive Metabolic Panel see note [employer] Other Comprehensive Metabolic Panel 141 mmol/L 136-145 mmol/L [employer] Other Comprehensive Metabolic Panel 83 mg/dL 74-106 mg/dL [employer] Other Comprehensive Metabolic Panel >60 mL/min/1.73m2 >=60 mL/min/1.73 m2 [employer] Other Comprehensive Metabolic Panel 0.3 mg/dL 0.2-1.0 mg/dL [employer] Other Comprehensive Metabolic Panel 3.4 g/dL [employer] Other LIPID PROFILEon 10-03-2022 CHOL-HDL RATIO NORM SEE BELOW Normal [facility] Comment on above: Result Comment: 3.3 - 4.4 LOW RISK 4.4 - 7.1 AVERAGE RISK 7.1 - 11.0 MODERATE RISK >11.0 HIGH RISK Performed By: #### C MP, LIPID #### [facility] [address] [address] [address] Rosalio Burks Cholesterol [Mass/Vol] 202 mg/dL Critically high <=200 mg/dL [facility] Comment on above: Performed By: #### C MP, LIPID #### [facility] [address] [address] [address] Rosalio Burks Cholesterol in HDL [Mass/Vol] 33 mg/dL Critically low 40-60 mg/dL [facility] Comment on above: Performed By: #### C MP, LIPID #### [facility] [address] [address] [address] Rosalio Burks Cholesterol in LDL [Mass/Vol] 106.4 mg/dL Normal [facility] Comment on above: Performed By: #### C MP, LIPID #### [facility] [address] [address] [address] Rosalio Burks Cholesterol.total/Cho lesterol in HDL [Mass ratio] 6.1 {ratio} [facility] Comment on above: Performed By: #### C MP, LIPID #### [facility] [address] [place] [address] Dr. Rosalio Burks HDL NORMAL > or = 60 mg/dl - LO W CARDIOVASCULAR RISK <40 mg/dl - HIGH CARDIOVASCULAR RISK Normal [facility] Comment on above: Performed By: #### C MP, LIPID #### [facility] [address] [place] [address] Dr. Rosalio Burks LDL CALC NORMAL SEE BELOW Normal [facility] Comment on above: Result Comment: <100 mg/dl OPTIMAL 100 - 129 mg/dl NEAR OR ABOVE OPTIMAL 130 - 159 mg/dl BORDERLINE HIGH 160 - 189 mg/dl HIGH >190 mg/dl VERY HIGH Performed By: #### C MP, LIPID #### [facility] [address] [place] [address] Dr. Rosalio Burks Triglyceride [Mass/Vol] 313 mg/dL Critically high <=150 mg/dL [facility] Comment on above: Performed By: #### C MP, LIPID #### [facility] [address] [place] [address] Dr. Rosalio Burks VLDL CALC 62.6 mg/dL Normal [facility] Comment on above: Performed By: #### C MP, LIPID #### [facility] [address] [place] [address] Dr. Rosalio Burks Lipid Panelon 10-03-2022 Lipid Panel > or = 60 mg/dl - LO W CARDIOVASCULAR RISK <40 mg/dl - HIGH CARDIOVASCULAR RISK [employer] Other Lipid Panel SEE BELOW [employer] Other Lipid Panel 106.4 mg/dL Cerephex [facility] [employer] Other Lipid Panel 62.6 mg/dL Cerephex [facility] [employer] Other PROF 14(COMP METB)on 023 Albumin [Mass/Vol] 3.9 g/dL Normal 3.4-5.0 [facility] Comment on above: Performed By: #### C MP, LIPID #### [facility] [address] [place] [address] Dr. Rosalio Burks Albumin/Globulin [Mass ratio] 1.1 {ratio} [facility] Comment on above: Performed By: #### C MP, LIPID #### [facility] [address] [place] [address] Dr. Rosalio Burks ALP [Catalytic activity/Vol] 108 U/L 46-116 U/L [facility] Comment on above: Performed By: #### C MP, LIPID #### [facility] [address] [place] [address] Dr. Rosalio Burks ALT [Catalytic activity/Vol] 15 U/L Critically low 16-63 U/L [facility] Comment on above: Performed By: #### C MP, LIPID #### [facility] [address] [place] [address] Dr. Rosalio Burks Anion gap [Moles/Vol] 10.4 mmol/L [facility] Comment on above: Performed By: #### C MP, LIPID #### [facility] [address] [place] [address] Dr. Rosalio Burks AST [Catalytic activity/Vol] 15 U/L 15-37 U/L [facility] Comment on above: Performed By: #### C MP, LIPID #### [facility] [address] [place] [address] Dr. Rosalio Burks Bilirubin [Mass/Vol] 0.3 mg/dL Normal 0.2-1.0 [facility] Comment on above: Performed By: #### C MP, LIPID #### [facility] [address] [place] [address] Dr. Rosalio Burks Calcium [Mass/Vol] 9.0 mg/dL Normal 8.5-10.1 [facility] Comment on above: Performed By: #### C MP, LIPID #### [facility] [address] [place] [address] Dr. Rosalio Burks Chloride [Moles/Vol] 104 mmol/L 98-107 mmol/L [facility] Comment on above: Performed By: #### C MP, LIPID #### [facility] [address] [place] [address] Dr. Rosalio Burks CO2 [Moles/Vol] 30.7 mmol/L Normal 21.0-32.0 [facility] Comment on above: Performed By: #### C MP, LIPID #### [facility] [address] [place] [address] Dr. Rosalio Burks Creatinine [Mass/Vol] 1.09 mg/dL Normal 0.70-1.30 [facility] Comment on above: Performed By: #### C MP, LIPID #### [facility] [address] [place] [address] Dr. Rosalio Burks EGFR-AF [place] CITIZEN >60 Normal >=[address] [facility] Comment on above: Performed By: #### C MP, LIPID #### [facility] [address] [place] [address] Dr. Rosalio Burks EGFR-NON AF [place] CITIZEN >60 Normal >=60 [facility] Comment on above: Performed By: #### C MP, LIPID #### [facility] [address] [place] [address] Dr. Rosalio Burks Globulin (S) [Mass/Vol] 3.4 g/dL Normal [facility] Comment on above: Performed By: #### C MP, LIPID #### [facility] [address] [place] [address] Dr. Rosalio Burks Glucose [Mass/Vol] 83 mg/dL Normal 74-106 [facility] Comment on above: Performed By: #### C MP, LIPID #### [facility] [address] [place] [address] Dr. Rosalio Burks Potassium [Moles/Vol] 4.1 mmol/L Normal 3.5-5.1 [facility] Comment on above: Performed By: #### C MP, LIPID #### [facility] [address] [address] [address] Rosalio Burks Protein [Mass/Vol] 7.3 g/dL Normal 6.4-8.2 [facility] Comment on above: Performed By: #### C MP, LIPID #### [facility] [address] [place] [address] Dr. Rosalio Burks Sodium [Moles/Vol] 141 mmol/L Normal 136-145 [facility] Comment on above: Performed By: #### C MP, LIPID #### [facility] [address] [place] [address] Dr. Rosalio Burks Urea nitrogen [Mass/Vol] 17.0 mg/dL Normal 7.0-18.0 [facility] Comment on above: Performed By: #### C MP, LIPID #### [facility] [address] [place] [address] Dr. Rosalio Burks Urea nitrogen/Creatinine [Mass ratio] 15.6 mg/mg [facility] Comment on above: Performed By: #### C MP, LIPID #### [facility] [address] [place] [address] Dr. Rosalio Burks XR MODIFIED BARIUM SWALLOWon [...] by: MAMIE HOLDER Date: 2021-11-01 09:50 Normal [facility] Vital Signs Date Time Vital Sign Value Performing Clinician Facility 03-19-2025 11:06-0400 Body height 198.12 cm Taras Ball DO Work Phone: [facility] 03-19-2025 11:06-0400 Body mass index (BMI) [Ratio] 21.9 kg/m2 Taras Ball DO Work Phone: [facility] 03-19-2025 11:06-0400 Body temperature 97.3 [degF] Taras Ball DO Work Phone: [facility] 03-19-2025 11:06-0400 Body weight 85.95 kg Taras Ball DO Work Phone: [facility] 03-19-2025 11:06-0400 Diastolic blood pressure 88 mm[Hg] Taras Ball DO Work Phone: [facility] 03-19-2025 11:06-0400 Heart rate 110 /min Taras Ball DO Work Phone: [facility] 03-19-2025 11:06-0400 Respiratory rate 12 /min Taras Ball DO Work Phone: [facility] 03-19-2025 11:06-0400 Systolic blood pressure 127 mm[Hg] Taras Ball DO Work Phone: [facility] 03-13-2025 10:54-0400 Body height 198.12 cm Taras Ball DO Work Phone: [facility] 03-13-2025 10:54-0400 Body mass index (BMI) [Ratio] 22.1 kg/m2 Taras Ball DO Work Phone: [facility] 03-13-2025 10:54-0400 Body temperature 99 [degF] Taras Ball DO Work Phone: [facility] 03-13-2025 10:54-0400 Body weight 87.14 kg Taras Ball DO Work Phone: [facility] 03-13-2025 10:54-0400 Diastolic blood pressure 76 mm[Hg] Taras Ball DO Work Phone: [facility] 08-08-2025 10:54-0400 Heart rate 115 /min Taras Ball DO Work Phone: [facility] 03-13-2025 10:54-0400 Respiratory rate 18 /min Taras Ball DO Work Phone: [facility] 03-13-2025 10:54-0400 SaO2% (BldA) [Mass fraction] 98 % Taras Ball DO Work Phone: [facility] 03-13-2025 10:54-0400 Systolic blood pressure 112 mm[Hg] Taras Ball DO Work Phone: [facility] 01-09-2025 11:04-0400 Body height 195.6 cm ZAK Martínez MD Work Phone: [facility] 01-09-2025 11:04-0400 Body mass index (BMI) [Ratio] 23.14 kg/m2 ZAK Martínez MD Work Phone: [facility] 01-09-2025 11:04-0400 Body temperature 98.1 [degF] ZAK Martínez MD Work Phone: [facility] 01-09-2025 11:04-0400 Body weight 88.5 kg ZAK Martínez MD Work Phone: [facility] 01-09-2025 11:04-0400 Diastolic blood pressure 84 mm[Hg] ZAK Martínez MD Work Phone: [facility] 01-09-2025 11:04-0400 Heart rate 94 /min ZAK Martínez MD Work Phone: [facility] 01-09-2025 11:04-0400 Respiratory rate 16 /min ZAK Martínez MD Work Phone: [facility] 01-09-2025 11:04-0400 SaO2% (BldA) [Mass fraction] 97 % ZAK Martínez MD Work Phone: [facility] 01-09-2025 11:04-0400 Systolic blood pressure 120 mm[Hg] ZAK Martínez MD Work Phone: [facility] 01-08-2025 15:36-0400 Diastolic blood pressure 78 mm[Hg] Tremayne Gibson DO Work Phone: [facility] 01-08-2025 15:36-0400 Heart rate 80 /min Tremayne Paige DO Work Phone: [facility] 01-08-2025 15:36-0400 Systolic blood pressure 110 mm[Hg] Tremayne Gibson DO Work Phone: [facility] 10-06-2024 09:25-0500 Body height 198.12 cm [facility] 10-06-2024 09:25-0500 Body mass index (BMI) [Ratio] 22.8 kg/m2 [facility] 10-06-2024 09:25-0500 Body temperature 97.4 [degF] [facility] 10-06-2024 09:25-0500 Body weight 89.58 kg [facility] 10-06-2024 09:25-0500 Diastolic blood pressure 79 mm[Hg] [facility] 10-06-2024 09:25-0500 Heart rate 94 /min [facility] 10-06-2024 09:25-0500 Respiratory rate 16 /min [facility] 10-06-2024 09:25-0500 SaO2% (BldA) [Mass fraction] 98 % [facility] 10-06-2024 09:25-0500 Systolic blood pressure 111 mm[Hg] [facility] 05-29-2024 13:02-0400 Diastolic blood pressure 85 mm[Hg] Tremayne Gibson DO Work Phone: [facility] 05-29-2024 13:02-0400 Heart rate 74 /min Tremayne Gibson DO Work Phone: [facility] 05-29-2024 13:02-0400 Systolic blood pressure 141 mm[Hg] Tremayne Gibson DO Work Phone: [facility] 11-15-2023 10:54-0400 Diastolic blood pressure 75 mm[Hg] Tremayne Gibson DO Work Phone: [facility] 11-15-2023 10:54-0400 Heart rate 106 /min Tremayne Gibson DO Work Phone: [facility] 11-15-2023 10:54-0400 SaO2% (BldA) [Mass fraction] 97 % Tremayne Gibson DO Work Phone: [facility] 11-15-2023 10:54-0400 Systolic blood pressure 141 mm[Hg] Tremayne Gibson DO Work Phone: [facility] 08-16-2023 10:15-0500 Body height 190.5 cm Taras Ball Other [facility] Other 08-16-2023 10:15-0500 Body mass index (BMI) [Ratio] 22.3 kg/m2 Taras Ball Other [facility] Other 08-16-2023 10:15-0500 Body weight 80.92 kg Taras Ball Other [facility] Other 08-16-2023 10:15-0500 Diastolic blood pressure 70 mm[Hg] Taras Ball Other [facility] Other 08-16-2023 10:15-0500 Respiratory rate 12 /min Taras Ball Other [facility] Other 08-16-2023 10:15-0500 Systolic blood pressure 109 mm[Hg] Taras Ball Other [facility] Other 05-10-2023 10:46-0400 Diastolic blood pressure 87 mm[Hg] Tremayne Gibson DO Work Phone: [facility] 05-10-2023 10:46-0400 Heart rate 85 /min Tremayne Gibson DO Work Phone: [facility] 05-10-2023 10:46-0400 Systolic blood pressure 125 mm[Hg] Tremayne Gibson DO Work Phone: [facility] 03-13-2023 13:30-0400 Body height 190.5 cm Taras Ball Other [facility] Other 03-13-2023 13:30-0400 Body mass index (BMI) [Ratio] 24.42 kg/m2 Taras Ball Other [facility] Other 03-13-2023 13:30-0400 Body weight 88.63 kg Taras Ball Other [facility] Other 03-13-2023 13:30-0400 Diastolic blood pressure 78 mm[Hg] Taras Ball Other [facility] Other 03-13-2023 13:30-0400 Respiratory rate 12 /min Taras Ball Other [facility] Other 03-13-2023 13:30-0400 Systolic blood pressure 111 mm[Hg] Taras Ball Other [facility] Other 10-03-2022 14:00-0500 Body height 190.5 cm Taras Ball Other [facility] Other 10-03-2022 14:00-0500 Body mass index (BMI) [Ratio] 25.32 kg/m2 Taras Ball Other [facility] Other 10-03-2022 14:00-0500 Body weight 91.9 kg Taras Ball Other [facility] Other 10-03-2022 14:00-0500 Diastolic blood pressure 82 mm[Hg] Taras Ball Other [facility] Other 10-03-2022 14:00-0500 Respiratory rate 12 /min Taras Ball Other [facility] Other 10-03-2022 14:00-0500 Systolic blood pressure 118 mm[Hg] Taras Ball Other [facility] Other 09-19-2022 12:40-0500 Body height 190.5 cm Tabby Lindo Other [facility] Other 09-19-2022 12:40-0500 Body mass index (BMI) [Ratio] 26.25 kg/m2 Tabby Lindo Other [facility] Other 09-19-2022 12:40-0500 Body temperature 98.2 [degF] Tabby Lindo Other [facility] Other 09-19-2022 12:40-0500 Body weight 95.26 kg Tabby Lindo Other [facility] Other 09-19-2022 12:40-0500 Respiratory rate 18 /min Tabby Lindo Other [facility] Other 09-19-2022 12:40-0500 SaO2% (BldA) [Mass fraction] 96 % Tabby Lindo Other [facility] Other 09-08-2022 07:53-0500 Body height 195.6 cm Tremayne iGbson DO Work Phone: [facility] 09-08-2022 07:53-0500 Body weight 93.58 kg Tremayne Gibson DO Work Phone: [facility] 09-08-2022 07:53-0500 Diastolic blood pressure 93 mm[Hg] Tremayne Gostkowski DO Work Phone: [facility] 09-08-2022 07:53-0500 Heart rate 82 /min Tremayne Gostkowski DO Work Phone: [facility] 09-08-2022 07:53-0500 SaO2% (BldA) [Mass fraction] 94 % Tremayne Gostkowski DO Work Phone: [facility] 09-08-2022 07:53-0500 Systolic blood pressure 146 mm[Hg] Tremayne Gostkowski DO Work Phone: [facility] 12-29-2021 13:46-0400 Diastolic blood pressure 82 mm[Hg] Tremayne Gostkowski DO Work Phone: [facility] 12-29-2021 13:46-0400 Heart rate 99 /min Tremayne Mickeytkowski DO Work Phone: [facility] 12-29-2021 13:46-0400 Systolic blood pressure 114 mm[Hg] Tremayne Gostkowski DO Work Phone: [facility] 11-10-2021 08:00-0400 Diastolic blood pressure 89 mm[Hg] Hero Cuellar PT Work Phone: [facility] 11-10-2021 08:00-0400 Heart rate 83 /min Hero Cuellar PT Work Phone: [facility] 11-10-2021 08:00-0400 Systolic blood pressure 134 mm[Hg] Hero Cuellar PT Work Phone: [facility] Encounters Encounter Date Encounter Type Care Provider Facility Start: 08-31-2025 ambulatory Cole Huddleston [facility] Start: 08-24-2025 ambulatory Cole Huddleston ty:[facility] Start: 05-18-2025 End: 05-18-2025 ambulatory Cole NASH Facility:[facility] Start: 05-18-2025 End: 05-18-2025 Patient encounter procedure Cole NASH [facility] Start: 05-14-2025 ambulatory TARAS WOODRUFF Micky y:[facility] Start: 05-07-2025 End: 05-07-2025 ambulatory Adama MARTÍNEZ Facility:[facility] Start: 04-30-2025 ambulatory [facility] Start: 04-23-2025 End: 04-23-2025 ambulatory Cole NASH Facility:[facility] Start: 04-23-2025 End: 04-23-2025 Patient encounter procedure [facility] Start: 04-16-2025 End: 04-17-2025 ambulatory Adama MARTÍNEZ Facility:[facility] Start: 04-16-2025 End: 04-16-2025 ambulatory Cole NASH Facility:[id number] Start: 04-10-2025 End: 04-10-2025 Patient encounter procedure [facility] Provider [facility] Start: 04-07-2025 End: 04-09-2025 Patient encounter [...] Start: 04-01-2025 End: 04-02-2025 ambulatory Adama MARTÍNEZ Facility:[facility] Start: 03-31-2025 End: 03-31-2025 Telephone encounter Adama Martínez MD Work Phone: Radiation Oncology Comment on above: Appointment Start: 03-30-2025 ambulatory Cole Huddleston ty:DAIS[facility]arson Start: 03-19-2025 End: 03-19-2025 ambulatory Taras Woodruff DO Work Phone: [facility] Work Phone: Start: 03-19-2025 End: 03-19-2025 Patient encounter procedure Taras Woodruff DO -[facility] Work Phone: Start: 03-18-2025 End: 03-19-2025 ambulatory [facility] Start: 03-18-2025 End: 03-19-2025 Encounter for other preprocedural examination [facility] Start: 03-13-2025 End: 03-13-2025 ambulatory Taras Ball DO Work Phone: [facility] Work Phone: Start: 03-13-2025 End: 03-13-2025 Patient encounter procedure Shabana Palomino [facility] Work Phone: Start: 03-12-2025 ambulatory Cole Huddleston ty:[facility] Start: 02-24-2025 End: 02-24-2025 ambulatory EYAL RAE [facility] Start: 02-20-2025 ambulatory ZHEN RIOS [facility] Start: 02-04-2025 End: 02-04-2025 Patient encounter procedure Tremayne Gibson DO -[facility] Work Phone: Start: 02-04-2025 End: 02-04-2025 ambulatory Taras Ball DO Work Phone: [facility] Work Phone: Start: 01-16-2025 End: 01-16-2025 Patient encounter procedure [facility] Provider [facility] Start: 01-14-2025 End: 01-15-2025 Telephone encounter [...] Start: 01-09-2025 End: 01-09-2025 ambulatory COLE NASH Facility:[facility] Start: 01-08-2025 End: 01-08-2025 Office outpatient visit 25 minutes Tremayne Gibson DO Work Phone: Neurology Comment on above: Parkinson's disease without dyskinesia or fluctuating manifestations (HCC) (Primary Dx); Slow transit constipation; Dysphagia, unspecified type Start: 01-08-2025 End: 01-08-2025 ambulatory TREMAYNE GIBSON Facility:[facility] Start: 01-05-2025 End: 01-05-2025 ambulatory Cole NASH Facility:[facility] Start: 01-05-2025 End: 01-05-2025 Patient encounter procedure Coel NASH [facility] Start: 12-23-2024 End: 12-23-2024 ambulatory Cole Nash Facility:[facility] Start: 12-23-2024 End: 12-23-2024 Departed [facility] Cole Nash MD -[facility] Work Phone: Start: 12-23-2024 End: 12-23-2024 ambulatory Cole NASH Facility:[id number] Start: 12-11-2024 [facility] Start: 11-24-2024 End: 11-24-2024 ambulatory TARAS WOODRUFF Facility:[facility] Start: 11-17-2024 ambulatory TARAS WOODRUFF Facility: [facility] Start: 11-13-2024 Non-patient / Non-visit Taras thao DO -[facility] Work Phone: Start: 10-06-2024 End: 10-06-2024 ambulatory [facility] Work Phone: Start: 10-06-2024 End: 10-06-2024 Encounter for general adult medical examination without abnormal findings [facility] Start: 10-06-2024 End: 10-06-2024 Patient encounter procedure [facility] Work Phone: Start: 09-02-2024 End: 09-03-2024 Refill Tremayne Gibson DO Work Phone: [facility] Comment on above: Refill Request Start: 08-15-2024 End: 08-15-2024 ambulatory No Pcp [facility] Start: 08-15-2024 End: 08-15-2024 Patient encounter procedure No Pcp [facility] Start: 08-04-2024 End: 08-04-2024 Refill Tremayne Gibson DO Work Phone: [facility] Comment on above: Refill Request Start: 05-29-2024 End: 05-29-2024 ambulatory TREMAYNE GIBSON Facility:[facility] Start: 05-29-2024 End: 05-29-2024 Office outpatient visit 10 minutes Tremayne Gibson DO Work Phone: Neurology Comment on above: PD (Parkinson's dise ase) ([facility]) (Primary Dx); Sialorrhea; RBD (REM behavioral disorder) Start: 05-03-2024 End: 05-03-2024 Orders Only Mari Narayan DO Work Phone: Neurology Comment on above: PD (Parkinson's dise ase) ([facility]) Start: 01-30-2024 Refill Tremayne florentino DO Work Phone: [facility] Comment on above: Refill Request Start: 11-15-2023 End: 11-15-2023 Office outpatient visit 15 minutes Tremayne Gibson DO Work Phone: Neurology Comment on above: PD (Parkinson's dise ase) (HCC) (Primary Dx); Sialorrhea; RBD (REM behavioral disorder) Start: 08-16-2023 End: 08-16-2023 ambulatory Taras Woodruff Other [facility] Other Start: 08-16-2023 Office outpatient vi sit 15 minutes Taras Kacy [facility] Start: 08-10-2023 End: 08-10-2023 ambulatory Taras Woodruff Other [facility] Other Start: 08-10-2023 Office outpatient vi sit 15 minutes Taras Kacy [facility] Start: 05-10-2023 End: 05-10-2023 Office outpatient visit 15 minutes Tremayne Gibson DO Work Phone: Neurology Comment on above: PD (Parkinson's dise ase) Start: 04-06-2023 Telephone encounter Tremayne fox DO Work Phone: Neurology Comment on above: Forms Start: 03-13-2023 End: 03-13-2023 ambulatory Taras Kacy Other [facility] Other Start: 03-13-2023 Office outpatient vi sit 25 minutes Taras Kacy [facility] Start: 11-22-2022 ambulatory Tremayne florentino DO Work Phone: Neurology Comment on above: neuropathy analysis Start: 10-09-2022 End: 10-09-2022 ambulatory Taras Kacy Other [facility] Other Start: 10-09-2022 Telephone encounter Taras Woodruff [facility] Start: 10-08-2022 Encounter for genera l adult medical examination without abnormal findings DR TARAS WOODRUFF [facility] Start: 10-03-2022 End: 10-04-[address] TARAS WOODRUFF Facility:[facility] Start: 10-03-2022 End: 10-04-2022 Encounter for general adult medical examination without abnormal findings DR TARAS WOODRUFF Facility:[facility] Start: 10-03-2022 Periodic preventive med est patient 40-64yrs Taras Woodruff [facility] Start: 09-19-2022 End: 09-19-2022 ambulatory Tabby Lindo Other [facility] Other Start: 09-19-2022 Office outpatient ne w [...] Start: 12-01-2021 End: 12-01-2021 ambulatory Janice Leon 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 [facility] Comment on above: Hypokinetic Parkinso nian dysphonia (HCC) (Primary Dx); 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); Pharyngeal dysphagia; PD (Parkinson's disease) (HCC) Start: 11-14-2021 ambulatory Tremayne florentino DO Work Phone: Neurology Comment on above: 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 Start: 11-10-2021 End: 11-10-2021 ambulatory Hero Cuellar PT Work Phone: [facility] Comment on above: Abnormality of gait (Primary Dx); PD (Parkinson's disease) (HCC) Hypokinetic Parkinso nian dysphonia (HCC) (Primary Dx); 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); Pharyngeal dysphagia; PD (Parkinson's disease) (HCC) Start: 11-07-2021 Telephone encounter Tremayne fox DO Work Phone: [facility] Comment on above: Results (MBS) Start: 11-03-2021 End: 11-03-2021 ambulatory Janice Leon [employer]-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 [facility] Speech Therapy Comment on above: Hypokinetic Parkinso nian dysphonia (HCC) (Primary Dx); 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); Pharyngeal dysphagia; PD (Parkinson's disease) (HCC) Start: 11-01-2021 End: 11-02-[address] DOCTOR REED Facility: Start: 01-11-2021 Adult health examination William Woodruff Other [facility] Other Procedures Date Procedure Procedure Detail Performing Clinician Start: 03-13-2025 Quick Strep (POC) William Woodruff DO Work Phone: Start: 12-23-2024 Ultrasonography guid ed transrectal cryoablation of prostate Cole NASH Comment on above: TRUS/bx Start: 10-03-2022 End: 10-03-[address] TARAS WOODRUFF Comment on above: Performed By: #### [facility] #### [facility] [address] [place] [address] Dr. Rosalio Burks Start: 12-26-2021 Adult depression [...] RSV Vaccine (1 - 1-dose 75+ series) [facility] Start: 10-03-2027 PROSTATE CANCER SCREENING DISCUSSION PROSTATE CANCER SCREENING DISCUSSION [facility] Start: 10-03-2027 Prostate specific antigen measurement Prostate Cancer Screening Discussion [facility] Start: 01-20-2027 Screening for malign ant neoplasm of colon [facility] Start: 01-13-2026 PROSTATE CANCER SCREENING DISCUSSION PROSTATE CANCER SCREENING DISCUSSION [facility] Start: 07-16-2025 End: 07-16-2025 Patient encounter procedure 07/16/2025 4:30 PM EST Office Visit Neurology [address] [place] [address] Tremayne Gibson, DO [address] [place] [address] Return in about 6 months (around 07/10/2025). Neurology Comment on above: Return in about 6 mo nths (around 07/10/2025). Start: 05-26-2025 End: 05-26-2025 Patient encounter procedure 05/26/2025 3:30 PM EDT Office Visit Radiation Oncology [address] [place] [address] Adama Martínez MD [address] [place] [address] Follow up Radiation Oncology Comment on above: Follow up Start: 05-14-2025 End: 05-14-2025 Patient encounter procedure 05/14/2025 8:00 AM EDT Appointment Radiology [facility] [address] [place] [address] Comment on above: Post [facility] CT Start: 05-07-2025 End: 05-07-2025 Patient encounter procedure 05/07/2025 2:30 PM EDT Office Visit Radiation Oncology [address] [place] [address] Adama Martínez MD [address] [place] [address] Follow up Radiation Oncology Comment on above: Follow up Start: 04-16-2025 End: 04-16-2025 Patient encounter procedure 04/16/2025 8:00 AM EDT Office Visit Radiation Oncology [address] [facility] [place] [address] Adama Martínez MD [address] [place] [address] [facility] Implant at The [facility] Radiation Oncology Comment on above: Seed Implant at The [facility] Start: 04-15-2025 End: 04-15-2025 Patient encounter procedure 04/15/2025 10:45 AM EDT Office Visit Radiation Oncology [address] [facility] [place] [address] Adama Martínez MD [address] [place] [address] Follow up / Seed implant Radiation Oncology [...] Radiation Oncology [address] [place] [address] Adama Martínez MD [address] [place] [address] Follow up/ Seed implant Radiation Oncology Comment on above: Follow up/ Seed impl ant Start: 03-05-2025 End: 03-05-2025 Patient encounter procedure 03/05/2025 8:00 AM EDT Office Visit Radiation Oncology [address] [place] [address] Adama Martínez MD [address] [place] [address] Seed Implant at The [facility] Radiation Oncology Comment on above: Seed Implant at The [facility] Start: 02-11-2025 End: 02-11-2025 Patient encounter procedure 02/11/2025 9:00 AM EDT Office Visit Radiation Oncology [address] [place] [address] Adama Martínez MD [address] [place] [address] Volume Study Radiation Oncology Comment on above: Volume Study Start: 01-08-2025 End: 01-08-2025 Patient encounter procedure 01/08/2025 3:30 PM EDT Office Visit Neurology [address] [place] [address] Tremayne Gibson, DO [address] [place] [address] PD FOLLOW UP Neurology Comment on above: PD FOLLOW UP Start: 08-06-2024 Advance Directive Discussion Advance Directive Discussion [facility] Start: 05-29-2024 End: 05-29-2024 Patient encounter procedure 05/29/2024 1:00 PM EDT Office Visit Neurology [address] [place] [address] Tremayne Gibson, DO [address] [place] [address] Return in about 6 months (around 05/16/2024). Neurology Comment on above: Return in about 6 mo nths (around 05/16/2024). Start: 2024 Advance Directive Discussion Advance Directive Discussion [facility] Start: 2024 Pneumococcal Vaccine : 65+ (1 of 1 - PCV) Pneumococcal Vaccine: 65+ (1 of 1 - PCV) [facility] Start: 04-06-2024 Covid-19 Vaccine ( season) Covid-19 Vaccine ( season) [facility] Start: 04-06-2024 Influenza vaccination C [facility] Start: 03-24-2024 Screening for malign ant neoplasm of colon [facility] Start: 04-06-2023 Covid-19 Vaccine ( season) Covid-19 Vaccine () [facility] Start: 04-06-2023 Influenza vaccination C [facility] Start: 12-26-2022 Adult depression screening assessment DEPRESSION SCREENING [facility] Start: 08-06-2022 DEPRESSION ASSESSMENT DEPRESSION ASS ESSMENT [facility] Start: 04-06-2022 Influenza vaccination C [facility] Start: 08-06-2021 DEPRESSION ASSESSMENT DEPRESSION ASS ESSMENT [facility] Start: 04-06-2021 Influenza vaccination INFLUENZA (#1) [facility] Start: 2019 RSV Vaccine (1 - 1-d ose 60+ series) RSV Vaccine (1 - 1-dose 60+ series) [facility] Start: 2014 PROSTATE CANCER SCREENING DISCUSSION PROSTATE CANCER SCREENING DISCUSSION [facility] Start: 2009 Pneumococcal Vaccine : 50+ (1 of 1 - PCV) Pneumococcal Vaccine: 50+ (1 of 1 - PCV) [facility] Start: 2009 SHINGRIX VACCINE (1 of 2) SHINGRIX VACCINE (1 of 2) [facility] Start: 2004 COLOGUARD (FIT-DNA) COLOGUARD (FIT-D NA) [facility] Start: 2004 Colonoscopy COLONOSCOPY [facility] Start: 2004 COLORECTAL CANCER SCREENING COLORECTAL CANCER SCREENING [facility] Start: [address] COLONOGRAPHY [facility] Start: 2004 DIABETES SCREEN DIABETES SCREEN [facility] Start: 2004 Diabetes Screening Diabetes Screenin g [facility] Start: 2004 FECAL OCCULT BLOOD FECAL OCCULT BLOO D [facility] Start: 2004 Screening for malign ant neoplasm of colon [facility] Start: 2004 SIGMOIDOSCOPY [facility] Start: 1994 Lipid 1996 panel - S andriy or Plasma Lipid Screening [facility] Start: 1994 [facility] Start: 1994 LIPID SCREEN LIPID SCREEN [facility] Start: 1978 Urine microalbumin profile [facility] Start: 1977 Anxiety Screening Anxiety Screening [facility] Start: 1977 Depression Screening Depression Scre ening [facility] Start: 1977 HEPATITIS C SCREENING HEPATITIS C [facility] Start: 1977 Hepatitis C screening Hepatitis C [facility] Start: 1977 HIV SCREENING HIV SCREENING [facility] Start: 1977 HIV screening HIV Screening [facility] Start: 1971 Adult depression screening assessment DEPRESSION SCREENING [facility] Start: 1964 COVID-19 VACCINE (#1) COVID-19 VACCI NE (#1) [facility] Start: 1964 COVID-19 VACCINE (1) COVID-19 VACCIN E (1) [facility] Start: 1959 COVID-19 VACCINE (#1) COVID-19 VACCI NE (#1) [facility] Comprehensive metabo lic 2000 panel - Serum or Plasma [facility] Immunizations Immunization Date Immunization Notes Care Provider Fa cility NEGATED: Highlighted row has not occurred!11-26-2020 SARS-CoV-2 (COVID-19) mRNA-1273 vaccine Cole [facility] [place] Payers Date Payer Category Payer Medicare [id number] 2025 Unknown [id number] 2024 Self-pay 2022 Private Health Insurance [id number] 2018 Unknown ALAINA JETT PPO [id number] 2018-Present [phone] [facility] [address] [place] [address] PPO [id number] 2018 Unknown [id number] 1959 Unknown [id number] 1959 Unknown [id number] 1959 Unknown [id number] 2.16.840.1.996603.3.579.2.5 1959 Unknown [id number] 2.16.840.1.254797.3.579.2.5 1959 Unknown [id number] 2.16.840.1.555877.3.579.2.7 1959 Unknown [id number] 2.16.840.1.377160.3.579.2.7 1959 Unknown [id number] 2.16.840.1.535010.3.579.2.7 1959 Unknown [id number] 2.16.840.1.050602.3.579.2.7 1959 Unknown [id number] 2.16.840.1.337912.3.579.2.7 1959 Unknown [id number] 2.16.840.1.779519.3.579.2.7 1959 Unknown [id number] 2.16.840.1.664029.3.579.2.7 1959 Unknown [id number] 2.16.840.1.108061.3.579.2.7 1959 Unknown [id number] 2.16.840.1.764289.3.579.2.7 1959 Unknown [id number] 2.16.840.1.771274.3.579.2.7 27 Unknown [id number] 2.16.840.1.612555.3.579.2.5 31 Unknown [id number] 2.16.840.1.391802.3.579.2.5 31 Social History Date Type Detail Facility Tobacco smoking stat us LAIS Tobacco smoking consumption unknown [facility] Start: 1960 Sex Assigned At Not on file C [facility] Start: 09-06-2021 End: 04-04-2022 Exposure to SARS-CoV-2 (event) Not sure [facility] Start: 09-08-2022 End: 05-18-2025 Tobacco smoking status LAIS Never smoked tobacco [facility] Start: 09-08-2022 Tobacco use and exposure Smoke less tobacco non-user [facility] Start: 09-08-2022 End: 01-15-2023 Sex Assigned At [facility] Start: 09-08-2022 End: 01-15-2023 History of Social function [facility] Start: 06-27-2021 Adult Depression Screening Assessment 0 [facility] Start: 10-01-2021 Sexual orientation Choose not to dis close [facility] Start: 04-14-2012 End: 10-06-2024 Sex Male (finding) [facility] Start: 1960 Sex Assigned At Male F [facility] Sexual Orientation [facility] Start: 01-09-2025 Alcoholic beverage intake Ex-drinker (finding) [facility] Clinical Notes 08-06-2008 to 05-18-2025 Adama Martínez [...] treat constipation, you may need to: Take kawo-aal-rfqhnoc or prescription medicines. Eat foods that are high in fiber, such as beans, whole grains, and fresh fruits and vegetables. Limit foods that are high in fat and processed sugars, such as fried or sweet foods. General instructions Take craq-fjd-yskyzbw and prescription medicines only as told by [...] provider. Document Revised: 10/19/2021 Document Reviewed: 10/19/2021 [employer] Patient Education [address] [employer] Fund I. Follow Up Care 03/19/2025 15:12:32 With:CHARITY TAFOYA, Cole Contreras, SALO Address: [facility] [address] , [place] [address]- When: Unknown [facility] 05-18-2025 Note Patient Education Oncology Brachytherapy [...] constipation, you may need to: ??? Take gwpj-ngy-cipnqmi or prescription medicines. ??? Eat foods that are high in fiber, such as beans, whole grains, and fresh fruits and vegetables. ??? Limit foods that are high in fat and processed sugars, such as fried or sweet foods. General instructions ??? Take ujha-mjw-qsgveem and prescription medicines only as told by [...] have pain o (more content not included)... [facility] 05-07-2025 Note HNO ID: [id number] Author: Adama MARTÍNEZ MD Service: ? Author Type: Physician Type: Progress Notes Filed: 05/14/2025 14:56 Note Text: Radiation Oncology - Follow Up Note PATIENT NAME: Cole Ramos PATIENT DIAGNOSIS: Prostate adenocarcinoma, initial PSA 4.2, biopsy Adeline [...] ASSESSMENT/PLAN: Prostate adenocarcinoma, initial PSA 4.2, biopsy [place] score 3 + 3 = 6 (grade [...] urologist as well. cc: Taras Woodruff (Krissy) [facility] [place] [address] Dr. Nash [facility] 05-07-2025 Note HNO ID: [id number] Author: DEEPIKA MERINO RN Service: ? Author Type: Registered Nurse Type: [place] Notes Filed: 05/14/2025 14:56 Note Text: AUA= 10 [facility] 04-16-2025 Note HNO ID: [id number] Author: Adama MARTÍNEZ MD Service: ? Author Type: Physician Type: Progress Notes Filed: 04/22/2025 14:46 Note Text: Date: 04/16/2025 Facility: [facility] Procedure: prostate transperineal brachytherapy implant Sources: Iodine [...] activity seen, results documented. Terrence Martínez MD [facility] 04-07-2025 History of Presen t illness Narrative COLE RAMOS [id number] 04/07/2025 [facility] Department of Radiation Oncology [facility] RADIATION ONCOLOGY BRACHYTHERAPY TREATMENT PLANNING NOTE [...] JOSIAH 2:34 PM documented in this encounter [facility] 04-07-2025 Note HNO ID: [id number] Author: Adama MARTÍNEZ MD Service: ? Author Type: Physician Type: [place] Notes Filed: 2025 12:34 Note Text: COLE RAMOS [id number] 04/07/2025 [facility] Department of Radiation Oncology [facility] RADIATION ONCOLOGY BRACHYTHERAPY TREATMENT PLANNING NOTE [...] Viktor Martínez M.D. / JOSIAH 512:34 PM [facility] 04-01-2025 Note HNO ID: [id number] Author: Adama MARTÍNEZ MD Service: ? Author [...] been communicated to the patient or surrogate. [facility] 04-01-2025 History of Presen t illness [...] patient or surrogate. documented in this encounter [facility] 04-01-2025 History of Presen t illness Narrative COLE RAMOS Juanita [id number] 04/01/2025 [facility] of Radiation Oncology [facility] RADIATION ONCOLOGY SIMULATION NOTE DATE OF SIMULATION: 04/01/2025 MACHINE: Ad Infuse 500 Diagnosis: 185 (Prostate Gland) AREA:Prostate PATIENT POSITION: Supine CONTRAST: None PROTOCOL: None CONCURRENT THERAPY: None FIXATION DEVICE: UTS Stabilization device by [employer]. PROCEDURE: Patient was simulated in exaggerated dorsal lithotomy position. Serial images of the prostate were acquired using TRUS and reconstructed in 3D space. These images were imported into [employer] Prostate planning system where a plan was generated. ASSESSMENT/PLAN: Patient tolerated simulation procedure well. Electronically Signed Viktor Martínez M.D. / QUEENIE 2:45 PM documented in this encounter [facility] 04-01-2025 Note HNO ID: [id number] Author: Adama MARTÍNEZ MD Service: ? Author Type: Physician Type: [place] Notes Filed: 04/02/2025 12:45 Note Text: ELENI COLE S [id number] 04/01/2025 [facility] of Radiation Oncology [facility] RADIATION ONCOLOGY SIMULATION NOTE DATE OF SIMULATION: 04/01/2025 MACHINE: H-art (WPP) Focus 500 Diagnosis: 185 (Prostate Gland) AREA:Prostate PATIENT POSITION: Supine CONTRAST: None PROTOCOL: None CONCURRENT THERAPY: None FIXATION DEVICE: UTS Stabilization device by [employer]. PROCEDURE: Patient was simulated in exaggerated dorsal lithotomy position. Serial images of the prostate were acquired using TRUS and reconstructed in 3D space. These images were imported into [employer] Prostate planning system where a plan was generated. ASSESSMENT/PLAN: Patient tolerated simulation procedure well. Electronically Signed Viktor Martínez M.D. / QUEENIE 512:45 PM [facility] 03-31-2025 Telephone encounter Note I called and spoke with Cole and reviewed his bowel prep instructions today for tomorrow's volume study. He denies questions at this time. He is aware to arrive at 8:45 tomorrow a.m. Deepika Merino RN [facility] 03-31-2025 Miscellaneous Notes I called and spoke with Cole and reviewed his bowel prep instructions today for tomorrow's volume study. He denies questions at this time. He is aware to arrive at 8:45 tomorrow a.m. Deepika Merino RN documented in this encounter [facility] 03-18-2025 Note Cardiovascular Medic [facility] SUBJECTIVE Chief Complaint Patient presents with [...] #Paroxysmal atrial fibrillation -Infrequent short asymptomatic episodes. -[id number] - 1 -Continue ASA 325mg daily and [...] cleared by thomas (more content not included)... [facility] 03-18-2025 Note Patient is here toda y [...] exertion. Respiratory: Positive for shortness of breath. [facility] 03-13-2025 Evaluation note Diagnosis Onset Date Resolution Viral URI with cough acute Augu st 2024 10:48am Odynophagia noneactive March 19, 2025 10:30am Acute bronchitis due to other specified organisms noneactive March 19 10:30am [facility] Work Phone: [phone]) 772-493306-12-2025 Telephone encounter Note* Telephone Encounter - Jennifer Sal RN - 01/15/2025 3:33 PM EDT Call placed and LM for pt to confirm dates/times of VS and seed Implant. Requested pt CB to review and appts were mailed to pt. Jennifer Sal RN [facility]06-12-2025 Miscellaneous Notes* Telephone Encounter - Jennifer Sal [...] you Jennifer Sal RN documented [facility] [place] Telephone encounter Note * Telephone Encounter - Jennifer Sal RN - 01/15/2025 1:42 PM EDT Scheduling process started and LM for Simi at Dr Nash office to begin coordinating. We will contact pt once this has been scheduled. Jennifer Sal RN [facility]06-11-2025 Telephone encounter Note* Telephone Encounter - Jennifer Sal RN - 01/14/2025 11:46 AM EDT Patient called to let us know he has decided to proceed with brachytherapy for treatment. He spoke to Dr Nash office and they instructed him to call us to start the scheduling process. Dr Martínez- please advise. Are we ok to schedule this? Thank you Jennifer Sal RN [facility]06-09-2025 Telephone encounter Note* Telephone Encounter - Jennifer Sal RN - 01/12/2025 1:19 PM EDT Call received from NASH at [facility] Cardiology. PT is NOT pacemaker dependent. Jennifer Sal RN [facility]06-09-2025 Miscellaneous Notes* Telephone Encounter - Jennifer Sal RN - 01/12/2025 1:19 PM EDT Call received from NASH at [facility] Cardiology. PT is NOT pacemaker dependent. Jennifer Sal RN * Telephone Encounter - Deepika Merino RN - 01/09/2025 1:43 PM EDT I called and spoke to Meg at [phone], Dr. Santos's office, asking if Cole is pacemaker dependent. She is unsure but will call back asapwith an update. Deepika Merino RN documented [facility] [place] Telephone encounter Note * Telephone Encounter - Deepika Merino RN - 01/09/2025 1:43 PM EDT I called and spoke to Meg at [phone], Dr. Santos's office, asking if Cole is pacemaker dependent. She is unsure but will call back asapwith an update. Deepika Merino RN [facility]06-06-2025 NoteHNO ID: [id number] Author: DEEPIKA MERINO RN Service: ? Author Type: Registered Nurse Type: [place] Notes Filed: 01/15/2025 12:19 Note Text: Pacemaker/Defibrillator?Yes -card copied Previous Cancer(s)? Basal cell -left neck-MOHS Previous Radiation? N Lupus/Scleroderma? N On body monitoring device? N AUA= 5 [facility] NoteHNO ID: [id number] Author: Adama MARTÍNEZ MD Service: ? Author [...] biopsies taken this area. Pathology revealed adenocarcinoma, [place] 6 (3+3) from L4 L3 L2 and [...] about radiation approaches includin (more content not included)...[facility]06-06-2025 History of Present illness Narrative* Deepika [...] with prostate adenocarcinoma, initial PSA 4.2, biopsy [place] score 3 +3 = 6 (grade group [...] Neurocardiogenic syncope Neurocardiogenic syncope PD (Parkinson's disease) ([facility]) 12/2021 PAST SURGICAL HISTORY Procedure Laterality Date [...] by: Adama Martínez MD cc: Taras Woodruff ([facility]) [address] [place] [address] Cole Contreras [place] [address] documented in this [facility] [place] Instructions* Patient Instructions* Tremayne Gibson DO - 01/08/2025 4:10 PM EDT Medications 7A 10A 1P 4P Sinemet 25/100 1 1 1 1 a. Take Sinemet 30 minutes before meals or 60 minutes after meals. Avoid taking this medication with high protein meals. b. If nausea develops, try taking Sinemet with crackers or bread. c. If nausea still persists, please call [[phone]]. Avoid taking anti- nausea medications before speaking with us. Avoid Reglan, Compazine or Phenergan. documented in this [facility] [place]25 NoteHNO ID: [id number] Author: TREMAYNE GIBSON DO Service: ? Author Type: Physician Type: [place] Notes Filed: 01/11/2025 15:46 Note Text: [facility] - FOLLOW UP EVALUATION Recording using [employer] software for draft documentation of the visit was discussed with the patient/authorized community relations representative; all questions welcomed and answered. Patient/authorized community relations representative agreed to proceed Taras Woodruff DO [address] [facility] [address] Dear Taras Woodruff DO: I had the [...] He recalls a previous swallow study at [facility] and participated in speech therapy for 3-4 [...] (BP Site: Left Ar (more content not included)...[facility]06-05-2025 History of Present illness Narrative* Tremayne Gibson, - 01/08/2025 3:48 PM EDT [facility] - FOLLOW UP EVALUATION Recording using [employer] software for draft documentation of the visit was discussed with the patient/authorized community relations representative; all questions welcomed and answered. Patient/authorized community relations representative agreed to proceed Taras Woodruff DO [address] [facility] [address] Dear Taras Woodruff DO: I had the [...] He recalls a previous swallow study at [facility] and participated in speech therapy for 3-4 [...] or around: 07/10/25 Level of service : 83530 ( 30-39 min). Time spent 36 min on the day of service, which included preparing to see the patient, mvtt-sh-nple patient care, completing clinical documentation, obtaining and/or reviewing separately obtained history, performing a medically appropriate examination, counseling and educating the patient/family/caregiver, ordering medications, tests, or procedures, communicating results to the patient/family/caregiver, and care coordination (not separately reported). Tremayne Gibson DO Senior Staff Neurologist - [facility] documented in this encounter[facility] [place] Hospital Discharge instructions Patient Education 01/05/2025 09:18:34 [...] under a microscope. This is called the [place] score and the total score can range from 6 10, indicating how likely it is that the cancer will spread (metastasize) to other parts of the body. The higher the score, the greater thelikelihood that the cancer will spread. [place] 6 or lower: This indicates that the cancer cells look similar to normal prostate cells (well differentiated). [place] 7: This indicates that the cancer cells look somewhat similar to normal prostate cells (moderately differentiated). [place] 8, 9, or 10: This indicates that [...] stress of having cancer. General instructions Take awkf-msj-mhilsxe and prescription medicines only as told by your health care provider. If you have to go to the hospital, notify your cancer specialist (oncologist). Keep all follow-up visits. This is important. Where to find more information [place] [employer]: www.cancer.org [place] [employer] Clinical Oncology: www.cancer.net National Cancer [place]: www.cancer.gov Contact a health care provider if: [...] provider. Document Revised: 10/19/2021 Document Reviewed: 10/19/2021 [employer] Patient Education [address] Res[address] [employer] Fund I. Follow Up Care 12/11/2024 15:37:32 With:CHARITY TAFOYA, Cole Contreras, URL Address: [facility] [address] , [place] [phone] When: Unknown Comments:referral to rad/onc [facility] 06-02-2025 NotePatient Education Oncology Prostate Cancer The [...] under a microscope. This is called the [place] score and the total score can range from 6?10, indicating how likely it is that the cancer will spread (metastasize) to other parts of the body. The higher the score, the greater thelikelihood that the cancer will spread. ??? Adeline 6 or lower: This indicates that the cancer cells look similar to normal prostate cells (well differentiated). ??? [place] 7: This indicates that the cancer cells look somewhat similar to normal prostate cells (moderately differentiated). ??? [place] 8, 9, or 10: This indicates that [...] needles, seeds, wires, o (more content not included)...[facility]04-21-2025 NoteUrology Office/Clinic Note Chief Complaint referral for elevated PSA HPI Staff INFORMATION ASSURANCE SPECIALIST referral for elevated PSA from Dr. Woodruff. [...] [facility] [address], [place] [phone] Additional Instructions: schedule prostate MRI and bx [...] No qualifying data Pro (more content not included)...[facility] Result Comment: Electronically Signed By: Cole NASH MD\.br\Date and Time Signed: 11/24/24 09:42 EDT\.br\Electronically Co-Signed By: Keisha Moscoso\.br\Date and Time Co-Signed: 11/24/24 09:41 [id number] NotePatient Education Oncology Transrectal Ultrasound-Guided Prostate Biopsy, [...] near your rectum, especially while sitting. ??? Channahon-colored urine due to small amounts of blood in your urine. ??? A burning feeling while urinating. ??? Blood in your stool (feces) or bleeding from your rectum. ??? Blood in your semen. Follow these instructions at home: Medicines ??? Take yzfv-rwx-tppakgm and prescription medicines only as told by [...] provider. Document Revised: 01/16/2022 Document Reviewed: 01/16/2022 [employer] Patient Education ? [address] [employer] Fund I. Transrectal Ultrasound-Guided Prostate Biopsy A transrectal ultrasound-guided [...] including vitamins, herbs, eye drops, creams, and hzlb-mfz-yefzojr medicines. ??? Any problems you or family [...] medicines. This is especial (more content not included)...[facility]01-28-2025 Telephone encounter Note* Telephone Encounter - Darlene Cortes - 09/02/2024 11:03 AM EST Pt requesting refill as follows: Last [facility]UV May 2024 with [facility] Request[facility] Prescriptions Pending Prescriptions Disp Refills carbidopa-levodopa (SINEMET) 25-100 mg per tablet 120 tablet 11 Sig: Take 1 tablet by mouth four times daily. Upon approval, script will be sent electronically to the patient's pharmacy. Darlene Frias, Cleat Layer III [facility]01-28-2025 Miscellaneous Notes* Telephone Encounter - Darlene Cortes - 09/02/2024 11:03 AM EST Pt requesting refill as follows: Last FUV May 2024 [facility] Request[facility] Prescriptions Pending Prescriptions Disp Refills carbidopa-levodopa (SINEMET) 25-100 mg per tablet 120 tablet 11 Sig: Take 1 tablet by mouth four times daily. Upon approval, script will be sent electronically to the patient's pharmacy. Darlene Frias, Cleat Layer III documented in this encounterKing'S Daughters [facility] [place]01-28-2025 NoteUT Electrophysiology Consult Note Reason for visit: [...] He recently went to Parkinson symposium at [facility]. He is handling his meds well. Device check 04/03/23 SR with normal parameters. 42% RA pacing and 23% RV pacing. Review of Systems Musculoskeletal: Positive for arthritis, back pain and myalgias. All other systems reviewed and are negative. [facility] neurology recently made a formal diagnosis of [...] Tobacco Use: Low Risk (05/29/2024) Received from [facility] Patient History Smoking Tobacco Use: Never Smokeless [...] Depression: Not at risk (05/23/2024) Received from [facility] PHQ-2 PHQ-2 score: 0 Housing Stability: Not [...] by mouth in t (more content not included)...[facility]01-10-2025 NoteHNO ID: [id number] Author: ?, ?, ? Service: ? Author [...] Dee Dee Pantoja August 15, 2024 1:43 [facility] History of Present illness Narrative* Dee [...] 15, 2024 1:43 PM documented in this encounterKing'S Daughters [facility] [place]01-10-2025 NotePatient Outreach ([facility]) RAMOSCOLE ([id number]) 1960 M Date Time Provider Department 08/15/24 NO PCP [facility] During your visit today, we recorded the following information about you: Yumiko Pantoja, Dee Dee Cortes 08/15/2024 1:45 PM Signed [facility] NAVIGATION OUTREACH Action/FYI RP Patient Outreach - Left message with spouse for patient to call back to schedule Provider ordered Follow up in Neurology. (Please see NurseGrid order dated for (05/29/2024). Any agent can [...] by YUMIKO PANTOJA DEE DEE CORTES on 08/15/24[facility]12[facility] Telephone encounter Note* Telephone Encounter - Martin Piedra - 08/04/2024 11:35 AM EST LAST APPT 05/29/24 [facility] Forwarding to covering physician Requested Prescriptions Pending Prescriptions Disp Refills carbidopa-levodopa (SINEMET) 25-100 mg per tablet 120 tablet 0 Sig: Take 1 tablet by mouth four times daily. [facility]12-30-2024 Miscellaneous Notes* Telephone Encounter - Martin Piedra - 08/04/2024 11:35 AM EST LAST APPT 05/29/24 [facility] Forwarding to covering physician Requested Prescriptions Pending Prescriptions Disp Refills carbidopa-levodopa (SINEMET) 25-100 mg per tablet 120 tablet 0 Sig: Take 1 tablet by mouth four times daily. documented in this encounterKing'S [facility]aughters [facility] [place]10-24-2024 NoteHNO ID: [id number] Author: TREMAYNE GIBSON DO Service: ? Author Type: Physician Type: Progress Notes Filed: 05/29/2024 13:39 Note Text: [facility] - FOLLOW UP EVALUATION Taras Woodruff DO [address] [facility] [address] Dear Taras Woodruff DO: I had the [...] are normal. Fund of (more content not included)...[facility]10-24-2024 History of Present illness Narrative* Tremayne Gibsno DO - 05/29/2024 1:23 PM EDT [facility] - FOLLOW UP EVALUATION Taras Woodruff DO [address] [facility] [address] Dear Taras Woodruff DO: I had the [...] Left pathological reflexes: Rashel's absent. Coordination Right: Nuhayk-go-mcbw normal. Rapid alternating movement normal.Left: Vscclx-js-uzfy normal. Rapid alternating movement normal. Gait Casual [...] 1 1 1 Level of service : 66051 (10-19 min). Time spent 15 min on the day of service, which included preparing to see the patient, gnpw-fh-ejvc patient care, completing clinical documentation, obtaining and/or [...] Sincerely, Tremayne Gibson DO documented in this encounterKing'S [facility] [place]09-28-2024 NoteHNO ID: [id number] Author: MARI ROSAS DO Service: ? Author Type: Physician Type: Progress Notes Filed: 05/03/2024 12:43 Note Text:[id number] History of Present illness Narrative* Mari Rosas DO - 05/03/2024 12:43 PM EDT documented in this encounterKing'S [facility]aughters [facility] [place]09-28-2024 Telephone encounter Note * Telephone Encounter - Mari Rosas DO - 05/03/2024 12:41 PM EDT Patient called stating he was out of town and [facility] [place] Refillordered [facility]09-28-2024 Miscellaneous Notes* Telephone Encounter - Mari Rosas DO - 05/03/2024 12:41 PM EDT Patient called stating he was out of town and [facility] [place] Refillordered documented in this encounterKing'S Daughters [facility] [place]06-26-2024 Telephone encounter Note * Telephone Encounter - Martin Piedra - 01/30/2024 10:46 AM EDT Last appt 11/15/23 [facility] Patient phones requesting refills as follows: Requested Prescriptions Pending Prescriptions Disp Refills carbidopa-levodopa (SINEMET) 25-100 mg per tablet 360 tablet 1 Sig: Take 1 tablet by mouth four times daily. [facility]06-26-2024 Miscellaneous Notes* Telephone Encounter - Martin Piedra - 01/30/2024 10:46 AM EDT Last appt 11/15/23 [facility] Patient phones requesting refills as follows: Requested Prescriptions Pending Prescriptions Disp Refills carbidopa-levodopa (SINEMET) 25-100 mg per tablet 360 tablet 1 Sig: Take 1 tablet by mouth four times daily. documented in this encounterKing'S Daughters [facility] [place]04-11-2024 Instructions* Patient Instructions* Tremayne Gibson DO - [...] Reglan, Compazine or Phenergan. documented in this encounterKing'S Daughters [facility] [place]04-11-2024 History of Present illness Narrative* Tremayne Gibson [...] BP Cuff Size: Regular Adult) Pulse 106 [id number]% General Medical Examination: General Description of Patient: [...] Left pathological reflexes: Rashel's absent. Coordination Right: Swssci-bv-wezt normal. Rapid alternating movement normal.Left: Dlpcch-mm-uswv normal. Rapid alternating movement normal. Gait Casual [...] this visit: Pd (parkinson's disease) ([facility]) (primary encounter diagnosis) Sialorrhea Rbd (rem behavioral [...] counseling regarding preparing to see the patient, vkrk-bx-vgvm patient care, completing clinical documentation, obtaining and/or reviewing separately obtained history, performing a medically appropriate examination, counseling and educating the patient/family/caregiver, ordering medications, tests,or procedures, and communicating results to the patient/family/caregiver. I tried to answer all of the patient's questions and concerns during this visit. Tremayne Gibson DO Senior Staff Neurologist - [facility] documented in this encounterKing'S Daughters [facility] [place]01-11-2024 Evaluation note* Encounter Date Diagnosis Assessment Notes [...] G20) Weakens his ability to clear secretions [facility] Other 01-05-2024 Evaluation note* Encounter Date Diagnosis [...] elevation of HOB. Jose Brock since nonproductive [facility] Other 10-05-2023 History of Present illness Narrative* Tremayne Gibson, DO - 05/10/2023 11:20 AM EDT [facility] - FOLLOW UP EVALUATION Tremayne Gibson [address] [facility] [address] Cole Ramos is a 63 year old [...] Left pathological reflexes: Rashel's absent. Coordination Right: Sbjftb-lu-idow normal. Rapid alternating movement normal.Left: Fkkhtq-jc-aobv normal. Rapid alternating movement normal. Gait Casual [...] counseling regarding preparing to see the patient, tzqs-cu-duif patient care, completing clinical documentation, obtaining and/or reviewing separately obtained history, performing a medically appropriate examination, counseling and educating the patient/family/caregiver, ordering medications, tests,or procedures, and communicating results to the patient/family/caregiver. I tried to answer all of the patient's questions and concerns during this visit. Tremayne Gibson DO Senior Staff Neurologist - [facility] * Abhishek Cotto LPN - 05/10/2023 [...] (Sleep study not recommended) documented in this encounterKing'S Daughters [facility] [place]09-01-2023 Miscellaneous Notes* Telephone Encounter - Drew Mora RN - 04/06/2023 2:59 PM EDT Form printed and in nursing outbox for MD signature. Drew Mora RN * Telephone Encounter - Flora Quevedo - 04/06/2023 2:05 PM EDT Received form by fax from [facility] Services in [place]. They are asking if the patient can participate [employer] fitness class. Scanned form to patient's chart for provider signature. documented in this encounterKing'S Daughters [facility] [place]08-08-2023 Evaluation note* Encounter Date Diagnosis Assessment Notes [...] calories. Protien supplement recommended. Monitor for now. [facility] Other 03-06-2023 Evaluation note* Encounter Date Diagnosis Assessment Notes Treatment Notes Treatment Clinical Notes Oct, Parkinson's disease (ICD-10 - G20) [facility] Other 02-28-2023 Evaluation note* Encounter Date Diagnosis [...] f/u Neurology, scheduled to be seen at [facility] neuropathy clinic. Fall precautions., inspect feet daily for cuts and calluses. Sep, Paroxysmal atrial fibrillation (ICD-10 - I48.0) CHADS VASC=0 Denies episodes of tachycardia. f/u Cardiology Sep, Cardiac pacemaker (I CD-10 - Z95.0) PM checks q 6mo [facility] Other 02-14-2023 Evaluation note* Encounter Date Diagnosis [...] treatment plan. Patient left in stable condition. [facility] Other [id number] Instructions* Patient Instructions* Tremayne Gibson DO - 09/08/2022 8:40 AM EST Medications 6A 10A 245P Sinemet 25/100 1 1 1 documented in this encounterKing'S [facility]aughters [facility] [place]02-03-2023 History of Present illness Narrative* Tremayne Gibson DO - 09/08/2022 8:18 AM EST [facility] - FOLLOW UP EVALUATION Tremayne Gibson [address] [facility] [address] Cole Ramos is a 62 year old [...] holds a paper. No falls are noted. 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 There is a strong family [...] in Neurology OT/PT/Speech Visit from 10/13/2021 in [facility] [...] Left pathological reflexes: Rashel's absent. Coordination Right: Jrvlgs-xd-wzbb normal. Rapid alternating movement normal.Left: Cjwyxb-qt-xmpo normal. Rapid alternating movement normal. Gait Casual [...] the amplitude decrements starting after the 1st bjmt-kne-jjayk sequence. Arm Movements Right 2-Mild. a) 3 [...] this visit: Pd (parkinson's disease) ([facility]) (primary encounter diagnosis) Neuropathy, peripheral, hereditary Plan: Continue Sinemet Encouraged exercise - ~150 minutes of strenuous exercise weekly is recommended Defer until 12/26; PT at [place] Defer until 12/26; genetic counseling for testing for peripheral neuropathy Return in about 6 months (around 03/08/2023). Medical decision making was high complexity due to patient's, multiple symptoms, advancing disease,newly diagnosed Neurologic disease and counseling about mcc implications The total time spent on the patient care was 25 minutes with greater than 50% of the time spent on counseling regarding preparing to see the patient, qbnb-hm-njhg patient care, completing clinical documentation, obtaining and/or reviewing separately obtained history, performing a medically appropriate examination, counseling and educating the patient/family/caregiver, ordering medications, tests,or procedures, and communicating results to the patient/family/caregiver. I tried to answer all of the patient's questions and concerns during this visit. Tremayne Gibson DO Senior Staff Neurologist - [facility] documented in this encounterKing'S Daughters [facility] [place]05-26-2022 Instructions* Patient Instructions* Tremayne Gibson DO - [...] Reglan, Compazine or Phenergan. documented in this encounterKing'S Daughters [facility] [place]05-26-2022 History of Present illness Narrative* Tremayne Gibson DO - 12/29/2021 2:10 PM EDT [facility] - FOLLOW UP EVALUATION Tremayne Gibson [address] [facility] [address] Cole Ramos is a 61 year old male with a history of IPD (idiopathic Parkinson's disease). He is seen with his . Interval History Since Last Visit: The patient has been following through with the 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 exercises on his drive to work. He notes mild depression. He has been using the treadmill. The short-term memory issues are still an issue. He notes continuing cognitive issues. The PT has been helpful - he notes more jtgey-sa-fjwazo. No falls arereported. The patient denies any [...] visit: PROMIS-10 OT/PT/Speech Visit from 10/13/2021 in [facility] T [...] Left pathological reflexes: Rashel's absent. Coordination Right: Kdoxak-ld-bfqp normal. Rapid alternating movement normal. Left: Ziefnl-gc-mnic normal. Rapid alternating movement normal. Gait Casual [...] the amplitude decrements starting after the 1st gjmr-xke-kcfnr sequence. Arm Movements Right 2-Mild. a) 3 [...] this visit: Pd (parkinson's disease) ([facility]) (primary encounter diagnosis) Plan: 1. Start Sinemet [...] counseling regarding preparing to see the patient, bdia-ja-dqnk patient care, completing clinical documentation, obtaining and/or reviewing separately obtained history, performing a medically appropriate examination, counseling and educating the patient/family/caregiver, ordering medications, tests,or procedures and communicating results to the patient/family/caregiver. I tried to answer all of the patient's questions and concerns during this visit. Tremayne Gibson, Senior Staff Neurologist - [facility] documented in this encounterKing'S Daughters [facility] [place]04-28-2022 History of Present illness Narrative* Janice Leon, [facility]-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 - 12/01/2021 8:55 AM EDT Episode Visit Count: 5 Therapist That Will Oversee The Plan Of Care: Janice Leon Start of Care Date: 10/13/21 Onset Date: 10/06/21 Plan of Care Certification Date: 10/13/21 Next Certification Due Date: 12/12/21 Patient Identified by Name and Date of : Yes [facility] SPEECH THERAPY [...] upright 90 degrees for all PO;Small Bite/Sip 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 Recommendations: Outpatient Speech Therapy Results and Recommendations Discussed With: Patient Planned Interventions, Frequency, and Duration: Planned Treatment Interventions: Cognitive-Linguistic Training (94477, 13939, 88256);Dysphagia Reduction Training (73304);Expressive Language Training (60812, 57216);Voice Training (70717) Current Frequency: 1x/week Duration: 4 weeks PLAN [...] reps each Laryngeal elevation/adduction exercises: 10 reps 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 administered DEEP PHARYNGEAL NEUROMUSCULAR STIMULATION to CN [...] 70.2 Sentences: 67.9 TREATMENT: Swallow / Dysphagia (09489): Skilled Intervention: Demonstrated, instructed, modeled and provided educational handout(s) for hyolaryngeal elevation and excursion manuevers and lingual ROM, lingual base ROM, pharyngeal ROM., Provided both written and video instruction for home exercise program to facilitate follow through with proper performance. , Provided neuromuscular reeducation of swallowing reflex via DPNS Speech/Language Therapy (15106): Skilled Intervention: Educated and instructed patient on [...] per 5 word sentences Billing: Speech Treatment (06004) and Dysphagia Treatment (37715) Total time / Length of visit: 60 minutes Janice Leon CCC-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 documented in this encounterKing'S Daughters [facility] [place]04-07-2022 Miscellaneous Notes* Addendum Note - Hero Cuellar, PT - 11/10/2021 9:37 AM EDT Addended by: HERO CUELLAR on: 11/10/2021 09:37 AM Modules accepted: Orders documented in this encounterKing'S Daughters [facility] [place]04-07-2022 History of Present illness Narrative* LANEY Park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 - 11/10/2021 9:04 AM EDT Episode Visit Count: 4 Therapist That Will Oversee The Plan Of Care: Janice Leon Start of Care Date: 10/13/21 Onset Date: 10/06/21 Plan of Care Certification Date: 10/13/21 Next Certification Due Date: 12/12/21 Patient Identified by Name and Date of : Yes [facility] SPEECH THERAPY [...] upright 90 degrees for all PO;Small Bite/Sip 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 Recommendations: Outpatient Speech Therapy Results and Recommendations Discussed With: Patient Planned Interventions, Frequency, and Duration: Planned Treatment Interventions: Cognitive-Linguistic Training (94191, 44632, 72756);Expressive Language Training (58792, 15741);Voice Training (15596);Dysphagia Reduction Training (07297) Current Frequency: 1x/week Duration: 4 weeks PLAN [...] 5 reps Pharyngeal ROM exercises: 10 reps 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 administered DEEP PHARYNGEAL NEUROMUSCULAR STIMULATION to CN V-XII sites with iced lemon glycerine swabs x 18. Patient demonstrated mild-strong gag response x 15, moderate to max lingual curling,moderate to max palatal lift and swallow reflexes of 2-3 seconds. TREATMENT: Swallow / Dysphagia (35682): Skilled Intervention: Demonstrated, instructed, modeled and provided [...] of swallowing reflex via DPNS. Speech/Language Therapy (91340): Skilled Intervention: Educated and instructed patient on compensatory strategies for vocal intensity, working memory, informtion processing Educated and instructed patient on memory recall strategies such as grouping. Provided verbal cues in vocal intensity. Provided and instructed patient per home exercise program. Current Home Program: facial/lingual/lingual base/laryngeal/pharyngeal exercises, working memory per 5 word sentences, memory using grouping, abstract categorical naming Billing: Speech Treatment (66626) and Dysphagia Treatment (39080) Total time / Length of visit: 75 minutes Janice Leon CCC-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 documented in this encounterKing'S Daughters [facility] [place]04-07-2022 History of Present illness Narrative* Hero Cuellar, [...] Patient to be seen for Therapeutic exercise (28953);Neuromuscular re-education (70687);Manual therapy (68619);Therapeutic activities (40791);Self-fdc management (58461);Gait Training (33670);Patient/Family/Caregiver Education;Functional training PLAN FOR NEXT VISIT: Return in 6 months to reperform outcome measures SUBJECTIVE: Patient Reason for Visit: Pt had a bout of headache and feeling off balance. Plans to discuss with scaffold setter. Pt will be working with Dr. Galan [...] 60 Hero Cuellar PT documented in this encounterKing'S Daughters [facility] [place]04-04-2022 Miscellaneous Notes* Telephone Encounter - Darlene Salazar - 11/07/2021 1:09 PM EDT MBS results received via fax and available to view in scanned documents. documented in this encounterKing'S Daughters [facility] [place]03-31-2022 History of Present illness Narrative* Janice Leon CCC-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 - 11/03/2021 11:11 AM EDT Episode Visit Count: 3 Therapist That Will Oversee The Plan Of Care: Jnaice Leon Start of Care Date: 10/13/21 Onset Date: 10/06/21 Plan of Care Certification Date: 10/13/21 Next Certification Due Date: 12/12/21 Patient Identified by Name and Date of : Yes [facility] SPEECH THERAPY [...] 69.4 dB SPL TREATMENT: Swallow / Dysphagia (25137): Skilled Intervention: Provided education related to a [...] follow through with proper performance. Speech/Language Therapy (80712): Skilled Intervention: Educated and instructed patient on compensatory strategies for vocal intensity Provided verbal cues in vocal intensity. Provided and instructed patient per home exercise program. Current Home Program: facial/lingual/laryngeal elevation/adduction, lingual base, Billing: Treatment of Swallow Dysfunction (50989) Speech Treatment (49462) Total time / Length of visit: 45 minutes Janice eLon CCC-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 documented in this encounterKing'S [facility] [place]01-01-2009 History general Narrative - Reported* Type Description [...] August 2008 Hospitalization History SEE SURGICAL HX [facility] Other Evaluation + [facility] Plan note Future Appointments Appointment Date:05/18/2025 09:30:00 AM Scheduled Provider:Cole NASH MD Location:[facility] Appointment Type:URO Office Visit [facility] evaluation + Plan note Future Appointments Appointment Date:08/24/2025 11:30:00 AM Scheduled Provider: Location:[facility] Appointment Type:URO Nurse Visit Appointment Date:08/31/2025 12:15:00 PM Scheduled Provider:Cole NASH MD Location:[facility] Appointment Type:URO Office Visit [facility] evaluation note* Diagnosis Hypokinetic Parkinsonian dysphonia [...] Wellness examination noneactive Carlos h 2024 9:20am [facility] Work Phone: Evaluation note* Diagnosis Parkinson's disease without dyskinesia or fluctuating manifestations (HCC)- Primary Slow transit constipation Dysphagia, unspecified type documented in this encounter [facility] note* Diagnosis Malignant neoplasm of prostate (HCC)- Primary Malignant neoplasm of prostate documented in this encounter [facility] noteNo assessment information availableOhio Valley [facility] Work Phone: Evaluation note* Diagnosis Onset Date Resolution Status Admit Date Sore throat noneactive March 13 10:48am [facility] Work Phone: Evaluation note* Diagnosis Malignant neoplasm of prostate (HCC)- Primary Malignant neoplasm of prostate [facility] Narrative No data available for this section [facility] Hospital Discharge instructions No data available for this section [facility] progress note No data available for this section [facility] reason for referral (narrative)No reason for referral information availableFulton [facility] Work Phone: Reason for Referral Specialty Diagnoses / Procedures Referred By Contac t Referred To Contact [facility] Diagnoses Abnormality of gait PD (Parkinson's disease) (HCC) Procedures PT REHAB FOLLOW UP ORDER THERAPEUTIC EXERCISES RE, EA 15 MIN. 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) Pharyngeal dysphagia PD (Parkinson's disease) (HCC) Procedures SPEECH REHAB FOLLOW UP ORDER TX SPEECH LANG VOICE COMMJ &/AUDITORY PROC IND Tremayne Gibson DO [address] [place] [address] [address] Referral ID Status Reason Start Date Expiration Date V isits Requested Visits Authorized [id number] Closed PCP Requested Referral Auto-Generated Referral 12/01/2021 03/01/2022 1 1 Specialty Diagnoses / Procedures Referred By Contac t Referred To Contact Diagnoses PD (Parkinson's disease) ([facility]) Procedures PROVIDER ORDERED FOLLOW UP OFFICE/OUTPATIENT NEW HIGH MDM 60-74 MINUTES Tremayne Gibson DO [address] [place] [address] Referral ID Status Reason Start Date Expiration Date V isits Requested Visits Authorized [id number] Authorized 07/01/2022 09/29/2022 1 1 Referral ID Status Reason Start Date Expiration Date V isits Requested Visits Authorized [id number] Authorized 03/08/2023 06/06/2023 1 1 Specialty Diagnoses / Procedures Referred By Contac t Referred To Contact [facility] Diagnoses PD (Parkinson's disease) (HCC) Procedures CONSULT TO PHYSICAL THERAPY PHYSICAL THERAPY EVALUATION HIGH COMPLEX 45 MINS Tremayne Gibson DO [address] [place] [address] [address] Referral ID Status Reason Start Date Expiration Date Visits Requested Visits Authorized [id number] Pending Review Auto-Generat ed Referral 12/15/2022 11/23/2023 1 1 Specialty Diagnoses / Procedures Referred By Lyubov marks Referred To Contact Diagnoses PD (Parkinson's disease) (HCC) Sialorrhea RBD (REM behavioral disorder) Procedures PROVIDER ORDERED FOLLOW UP OFFICE/OUTPATIENT NEW HIGH MDM 60 MINUTES Tremayne Gibson T, DO [address] [place] [address] Referral ID Status Reason Start Date Expiration Date V isits Requested Visits Authorized [id number] Authorized 05/16/2024 08/14/2024 1 1 Specialty Diagnoses / Procedures Referred By Lybuov marks Referred To Contact Diagnoses PD (Parkinson's disease) ([facility]) Procedures PROVIDER ORDERED FOLLOW UP OFFICE/OUTPATIENT NEW HIGH MDM 60 MINUTES Tremayne Gibson, DO [address] [place] [address] Referral ID Status Reason Start Date Expiration Date V isits Requested Visits Authorized [id number] Authorized 11/27/2024 02/25/2025 1 1 Summary Purpose [...] or prosecute any alcohol or drug abuse patient.[facility] [place] the event this information is protected by the Federal Confidentiality of Alcohol and Drug Abuse Patient Records regulations: The Federal rules restrict any use of the information to criminally investigate or prosecute any alcohol or drug abuse patient.[facility] [place]In the event this information is protected by the Federal Confidentiality of Alcohol and Drug Abuse Patient Records regulations: The Federal rules restrict any use of the information to criminally investigate or prosecute any alcohol or drug abuse patient.[facility] [place]In the event this information is protected by the Federal Confidentiality of Alcohol and Drug Abuse Patient Records regulations: The Federal rules restrict any use of the information to criminally investigate or prosecute any alcohol or drug abuse patient.[facility] [place]In the event this information is protected by the Federal Confidentiality of Alcohol and Drug Abuse Patient Records regulations: The Federal rules restrict any use of the information to criminally investigate or prosecute any alcohol or drug abuse patient.[facility] [place]In the event this information is protected by the Federal Confidentiality of Alcohol and Drug Abuse Patient Records regulations: The Federal rules restrict any use of the information to criminally investigate or prosecute any alcohol or drug abuse patient.[facility] [place]In the event this information is protected by the Federal Confidentiality of Alcohol and Drug Abuse Patient Records regulations: The Federal rules restrict any use of the information to criminally investigate or prosecute any alcohol or drug abuse patient.[facility] [place]In the event this information is protected by the Federal Confidentiality of Alcohol and Drug Abuse Patient Records regulations: The Federal rules restrict any use of the information to criminally investigate or prosecute any alcohol or drug abuse patient.[facility] [place]In the event this information is protected by the Federal Confidentiality of Alcohol and Drug Abuse Patient Records regulations: The Federal rules restrict any use of the information to criminally investigate or prosecute any alcohol or drug abuse patient.[facility] [place]In the event this information is protected by the Federal Confidentiality of Alcohol and Drug Abuse Patient Records regulations: The Federal rules restrict any use of the information to criminally investigate or prosecute any alcohol or drug abuse patient.[facility] [place]In the event this information is protected by the Federal Confidentiality of Alcohol and Drug Abuse Patient Records regulations: The Federal rules restrict any use of the information to criminally investigate or prosecute any alcohol or drug abuse patient.[facility] [place]In the event this information is protected by the Federal Confidentiality of Alcohol and Drug Abuse Patient Records regulations: The Federal rules restrict any use of the information to criminally investigate or prosecute any alcohol or drug abuse patient.[facility] [place]In the event this information is protected by the Federal Confidentiality of Alcohol and Drug Abuse Patient Records regulations: The Federal rules restrict any use of the information to criminally investigate or prosecute any alcohol or drug abuse patient.[facility] [place]In the event this information is protected by the Federal Confidentiality of Alcohol and Drug Abuse Patient Records regulations: The Federal rules restrict any use of the information to criminally investigate or prosecute any alcohol or drug abuse patient.[facility] [place]In the event this information is protected by the Federal Confidentiality of Alcohol and Drug Abuse Patient Records regulations: The Federal rules restrict any use of the information to criminally investigate or prosecute any alcohol or drug abuse patient.[facility] [place]In the event this information is protected by the Federal Confidentiality of Alcohol and Drug Abuse Patient Records regulations: The Federal rules restrict any use of the information to criminally investigate or prosecute any alcohol or drug abuse patient.[facility] [place]In the event this information is protected by the Federal Confidentiality of Alcohol and Drug Abuse Patient Records regulations: The Federal rules restrict any use of the information to criminally investigate or prosecute any alcohol or drug abuse patient.[facility] [place]In the event this information is protected by the Federal Confidentiality of Alcohol and Drug Abuse Patient Records regulations: The Federal rules restrict any use of the information to criminally investigate or prosecute any alcohol or drug abuse patient.[facility] [place]In the event this information is protected by the Federal Confidentiality of Alcohol and Drug Abuse Patient Records regulations: The Federal rules restrict any use of the information to criminally investigate or prosecute any alcohol or drug abuse patient.[facility] [place]In the event this information is protected by the Federal Confidentiality of Alcohol and Drug Abuse Patient Records regulations: The Federal rules restrict any use of the information to criminally investigate or prosecute any alcohol or drug abuse patient.[facility] [place]In the event this information is protected by the Federal Confidentiality of Alcohol and Drug Abuse Patient Records regulations: The Federal rules restrict any use of the information to criminally investigate or prosecute any alcohol or drug abuse patient.[facility] [place]In the event this information is protected by the Federal Confidentiality of Alcohol and Drug Abuse Patient Records regulations: The Federal rules restrict any use of the information to criminally investigate or prosecute any alcohol or drug abuse patient.[facility] [place]In the event this information is protected by the Federal Confidentiality of Alcohol and Drug Abuse Patient Records regulations: The Federal rules restrict any use of the information to criminally investigate or prosecute any alcohol or drug abuse patient.[facility] [place]In the event this information is protected by the Federal Confidentiality of Alcohol and Drug Abuse Patient Records regulations: The Federal rules restrict any use of the information to criminally investigate or prosecute any alcohol or drug abuse patient.[facility] [place]In the event this information is protected by the Federal Confidentiality of Alcohol and Drug Abuse Patient Records regulations: The Federal rules restrict any use of the information to criminally investigate or prosecute any alcohol or drug abuse patient.[facility] [place]In the event this information is protected by the Federal Confidentiality of Alcohol and Drug Abuse Patient Records regulations: The Federal rules restrict any use of the information to criminally investigate or prosecute any alcohol or drug abuse patient.[facility] [place]In the event this information is protected by the Federal Confidentiality of Alcohol and Drug Abuse Patient Records regulations: The Federal rules restrict any use of the information to criminally investigate or prosecute any alcohol or drug abuse patient.[facility] [place]In the event this information is protected by the Federal Confidentiality of Alcohol and Drug Abuse Patient Records regulations: The Federal rules restrict any use of the information to criminally investigate or prosecute any alcohol or drug abuse patient.[facility] [place]In the event this information is protected by the Federal Confidentiality of Alcohol and Drug Abuse Patient Records regulations: The Federal rules restrict any use of the information to criminally investigate or prosecute any alcohol or drug abuse patient.[facility] [place] Reason for Visit (unrecogniz ed section and content) Reason Comments Speech Progress Note Specialty Diagnoses / Procedures Referred By Lyubov t Referred To Contact SPEECH THERAPY Diagnoses PD (Parkinson's disease) ([facility]) Procedures CONSULT TO SPEECH THERAPY OFFICE/OUTPATIENT [facility] 60-74 MINUTES EVAL SPEECH SOUND PRODUCT LANGUAGE COMPREHENSION TX SPEECH LANG VOICE COMMJ &/AUDITORY PROC IND Tremayne Gibson, DO [address] [place] [address] [facility] [address] [place] [address] Referral ID Status Reason Start Date Expiration Date Visits Requested Visits Authorized [id number] Authorized Auto-Generat ed Referral 10/07/2021 08/05/2022 30 30 Reason Comments Speech Therapy Reason Comments Physical Therapy PT Progress Note Specialty Diagnoses / Procedures Referred By Lyubov marks Referred To Contact PHYSICAL THERAPY Diagnoses PD (Parkinson's disease) ([facility]) Procedures CONSULT TO PHYSICAL THERAPY PHYSICAL THERAPY EVALUATION HIGH COMPLEX 45 MINS THERAPEUTIC EXERCISES RE, EA 15 MIN. Tremayne Gibson, DO [address] [place] [address] [facility] [address] [place] [address] Referral ID Status Reason Start Date Expiration Date Visits Requested Visits Authorized [id number] Authorized Auto-Generat ed Referral 10/07/2021 08/05/2022 30 30 Reason Comments Speech Progress Note Specialty Diagnoses / Procedures Referred By Lyubov marks Referred To Contact SPEECH THERAPY Diagnoses PD (Parkinson's disease) ([facility]) Procedures CONSULT TO SPEECH THERAPY OFFICE/OUTPATIENT [facility] 60-74 MINUTES EVAL SPEECH SOUND PRODUCT LANGUAGE COMPREHENSION TX SPEECH LANG VOICE COMMJ &/AUDITORY PROC IND Tremayne Gibson, DO [address] [place] [address] [facility] [address] [place] [address] Reason Comments Results MBS Reason Comments Established Patient Tremor Tremors little worse Numbness in both feet mostly left Specialty Diagnoses / Procedures Referred By Lyubov marks Referred To Contact Diagnoses PD (Parkinson's disease) ([facility]) Procedures PROVIDER ORDERED FOLLOW UP OFFICE/OUTPATIENT NEW HIGH MDM 60-74 MINUTES Tremayne Gibson, DO [address] [place] [address] Referral ID Status Reason Start Date Expiration Date Visits Re quested Visits Authorized [id number] Closed 07/01/2022 09/29/2022 1 1 Reason Comments Forms Reason Comments Follow Up Specialty Diagnoses / Procedures Referred By Lyubov marks Referred To Contact Diagnoses PD (Parkinson's disease) Procedures PROVIDER ORDERED FOLLOW UP OFFICE/OUTPATIENT NEW HIGH MDM 60-74 MINUTES Tremayne Gibson, DO [address] [place] [address] Referral ID Status Reason Start Date Expiration Date Visits Re quested Visits Authorized [id number] Closed 03/08/2023 06/06/2023 1 1 Reason Comments Follow Up Follow up on Vanessa ons Reason Onset Date Comments Refill Request 01/30/2024 Reason Comments Follow Up Parkinson's Disease Per patient statemen t, 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 Patient conts with P.T. and is going well. Specialty Diagnoses / Procedures Referred By Lyubov marks Referred To Contact Diagnoses PD (Parkinson's disease) ([facility]) Sialorrhea RBD (REM behavioral disorder) Procedures PROVIDER ORDERED FOLLOW UP OFFICE/OUTPATIENT NEW HIGH MDM 60 MINUTES Tremayne Gibson, DO [address] [place] [address] Referral ID Status Reason Start Date Expiration Date Visits Re quested Visits Authorized [id number] Closed 05/16/2024 08/14/2024 1 1 Reason Onset [...] Referred To Contact Diagnoses PD (Parkinson's disease) ([facility]) Procedures PROVIDER ORDERED FOLLOW UP OFFICE/OUTPATIENT [facility] 60 MINUTES Tremayne Gibson DO [address] [place] [address] Phone: tel: fax: Referral ID Status Reason Start Date Expiration Date Visits Re quested Visits Authorized [id number] Closed 11/27/2024 02/25/2025 1 1 Reason Comments [...] DATE CREATED AUTHOR AUTHOR'S ORGANIZ ATION 05/04/2024 [facility] DATE CREATED AUTHOR AUTHOR'S ORGANIZ ATION 02/22/2025 [facility] DATE CREATED AUTHOR AUTHOR'S ORGANIZ ATION 05/01/2025 [facility] DATE CREATED AUTHOR AUTHOR'S ORGANIZ ATION 05/16/2025 [facility] DATE CREATED AUTHOR AUTHOR'S ORGANIZ ATION 05/19/2025 [facility] Care Teams (unrecognized sec tion and content) Personnel Name: TARAS WOODRUFF DO Address: [address] [facility] [place], [place] [address] Telecom: Team Status: Active Member Role Status [...] Provider Active Start: November 13, 2024 Taras Woodurff DO Attending Provider Active Sta rt: November 13, 2024 Rn Neurosurgical Relationship Specialty Start Date End Date Taras Woodruff DO [address] [place] [address] PCP - General Internal Medicine 05/29/24 Rn Neurosurgical Relationship Specialty Start Date End Date Taras Woodruff DO [address] [place] [address] PCP - General Internal Medicine 05/29/24 Rn Neurosurgical Relationship Specialty Start Date End Date Taras Woodruff DO [address] [place] [address] PCP - General Internal Medicine 05/29/24 Rn Neurosurgical Relationship Specialty Start Date End Date Taras Woodruff DO [address] [place] [address] PCP - General Internal Medicine 05/29/24 Team Status: Inactive Member Role Status Dates Taras Woodruff DO Primary Care Provide r, Attending Provider Active Start: October 06, 2024 End: October 06, 2024 Rn Neurosurgical Relationship Specialty Start Date End Date Taras Woodruff DO [address] [place] [address] PCP - General Internal Medicine 05/29/24 Rn Neurosurgical Relationship Specialty Start Date End Date Taras Woodruff DO [address] [place] [address] PCP - General Internal Medicine 05/29/24 Rn Neurosurgical Relationship Specialty Start Date End Date Taras Woodruff DO [address] [place] [address] PCP - General Internal Medicine 05/29/24 Rn Neurosurgical Relationship Specialty Start Date End Date Taras Woodruff DO [address] [place] [address] PCP - General Internal Medicine 05/29/24 Team Status: Inactive Member Role Status Dates Taras Woodruff DO Primary Care Provider Active Start: March 19, 2025 End: March 19, 2025 Taras Woodruff DO Attending Provider Active Sta rt: March 19, 2025 End: March 19, 2025 Rn Neurosurgical Relationship Specialty Start Date End Date Taras Woodruff DO [address] [place] [id number] PCP - General Internal Medicine 05/29/24 Rn Neurosurgical Relationship Specialty Start Date End Date Taras Woodruff DO [address] [place] [address] PCP - General Internal Medicine 05/29/24 Rn Neurosurgical Relationship Specialty Start Date End Date Taras Woodruff DO [address] [place] [id number] PCP - General Internal Medicine 05/29/24 Goals [...] BE BASED ON THE PRIMARY CLINICAL RECORDS. [facility]. provides no warranty or guarantee of the accuracy or completeness of information in this document.
[2025-05-22 13:32] LABS: Prostate Specific Antigen Dx 3.24 ng/mL (<=4.00)
== END 2025-05-22 10:21 | disposition home or self-care (01) ==
LOC: LAB 10:22
PROVIDERS: PCP Internal Medicine; Visit Provider Radiology Radiation Oncology
DX: C61 Malignant neoplasm of prostate (principal)
CPT/HCPCS: 36415; 84153